=== PATIENT | male | born 1950 | race Caucasian/White ===

== ENCOUNTER → 2017-02-17 13:37 | Outpatient (CLI) | payer MEDICARE, SELFPAY ==
[2017-02-17 14:37] LABS: Microalbumin,Random Urine 16.5 mg/L (NO RANGE EST.); Microalbumin:Creatinine Ratio 58.3 mg/g CRE (<30 mg/g CRE)
== END ==
PROVIDERS: Family Provider Family Medicine; PCP Family Medicine; Visit Provider Family Medicine
DX: E11.22 Type 2 diabetes mellitus with diabetic chronic kidney disease (principal); N18.1 Chronic kidney disease, stage 1
CPT/HCPCS: 82043; 82570

== ENCOUNTER → 2017-08-24 09:54 | Outpatient (CLI) | payer MEDICARE, MEDICAID, SELFPAY ==
--- NOTE | 2017-08-25 07:48 | PFT ---
INTRODUCTION: The patient is a 66-year-old male that presents for pulmonary function testing secondary to a diagnosis of asthma. Respiratory therapy reports good patient effort. Bronchodilators were used during testing. INTERPRETATION: Forced expiration spirometry demonstrates no evidence of a large airways obstructive ventilatory defect. There was no significant response to aerosolized bronchodilators, based upon strict ATS criteria. Spirograms are of good quality and plateau gradually. Body plethysmography was performed and reveals lung volumes to be within normal limits. Diffusing capacity by single breath CO is mildly reduced at 62% of predicted. IMPRESSION: These pulmonary function studies demonstrate the presence of an isolated mild reduction in diffusing capacity, which could be related to an underlying pulmonary vascular disorder such as pulmonary hypertension. There has been significant improvement in the patient's spirometric values since 2016. However, the patient's diffusing capacity has decreased by 13%.
--- NOTE | 2017-08-25 07:51 | PFT_ITS ---
INTRODUCTION: The patient is a 66-year-old male that presents for pulmonary function testing secondary to a diagnosis of asthma. Respiratory therapy reports good patient effort. Bronchodilators were used during testing. INTERPRETATION: Forced expiration spirometry demonstrates no evidence of a large airways obstructive ventilatory defect. There was no significant response to aerosolized bronchodilators, based upon strict ATS criteria. Spirograms are of good quality and plateau gradually. Body plethysmography was performed and reveals lung volumes to be within normal limits. Diffusing capacity by single breath CO is mildly reduced at 62% of predicted. IMPRESSION: These pulmonary function studies demonstrate the presence of an isolated mild reduction in diffusing capacity, which could be related to an underlying pulmonary vascular disorder such as pulmonary hypertension. There has been significant improvement in the patient's spirometric values since 2016. However , the patient's diffusing capacity has decreased by 13%.
== END ==
PROVIDERS: Family Provider Family Medicine; PCP Family Medicine; Visit Provider Nurse Practitioner Acute Care
DX: J44.9 Chronic obstructive pulmonary disease, unspecified (principal)
CPT/HCPCS: 94060; 94726; 94729

== ENCOUNTER → 2017-09-19 13:45 | Outpatient (CLI) | payer MEDICARE, MEDICAID, SELFPAY ==
[2017-09-19 15:38] LABS: Hemoglobin A1c 5.4 % (4.2-6.3)
[2017-09-19 15:39] LABS: AST(SGOT) 21 U/L (15-37); Alanine Aminotransfer ALT/SGPT 33 U/L (16-61); Albumin, Serum 3.5 g/dL (3.2-5.0); Alkaline Phosphatase 57 U/L (45-117); Anion Gap 11 (5-15); BUN 18 mg/dL (7-18); BUN/Creat Ratio 12.2 RATIO (10-20); Calcium,Total 8.6 mg/dL (8.5-10.1); Chloride 110 mmol/L (98-107); Cholesterol 73 mg/dL (200); Creatinine, Serum 1.47 mg/dL (0.70-1.30); EST Glomerular Filtration Rate 51 mL/min (>60); Est Glom Filt Rate - Afr Amer 62 mL/min (>60); Globulin 3.5 g/dL (2.2-4.2); Glucose 141 mg/dL (74-106); High Density Lipoprotein 27 mg/dL; Potassium 3.9 mmol/L (3.5-5.1); Sodium Level 145 mmol/L (136-145); Triglycerides 89 mg/dL; Very Low Density Lipoprotein 18 mg/dL (5-40)
== END ==
PROVIDERS: Family Provider Family Medicine; PCP Family Medicine; Visit Provider Nurse Practitioner
DX: E11.9 Type 2 diabetes mellitus without complications (principal)
CPT/HCPCS: 36415; 80053; 80061; 83036

== ENCOUNTER → 2017-09-21 12:04 | Outpatient (CLI) | payer MEDICARE, MEDICAID, SELFPAY ==
[2017-09-21 12:40] VITALS: PULSE 101; PULSE 104; PULSE 75; PULSE 95; PULSE 96; PULSE 97; O2SAT 92; O2SAT 94; O2SAT 95; O2SAT 97
--- NOTE | 2017-09-21 12:48 | CPS ---
Wears CPAP at night. He rested from 300 mins to 330 into test became Short of Breath mild exp wheezing stopped as soon as he stopped walking.
--- NOTE | 2017-09-22 07:38 | PCM.PSN.6M ---
PSN 6 Minute Walk Test - 6 Minute Walk Test 6 Minute Walk Test: 6 Minute Walk Test PSN:6-Minute Walk Test Start: 09/21/17 12:40 Freq: Status: Active Protocol: [id number] Document 09/21/17 12:40 FR (Rec: 09/21/17 12:50 FR [id number]) 6 Minute Walk Test Date Performed 09/21/17 Time Performed 12:30 Height 5 ft 9 in Weight: 340 lb Weight in Pounds 340.0 lbs Assistive device used: None Pre-test Oxygen Delivery Method Room Air Pulse Ox (%) 94 Pulse Rate (60-100 beats/min) 75 Dyspnea Hernandez Scale (0-10) 0 Exertion Hernandez Scale (6-20) 8 1st minute Oxygen Delivery Method Room Air Pulse Ox (%) 94 Pulse Rate (60-100 beats/min) 104 H 2nd minute Oxygen Delivery Method Room Air Pulse Ox (%) 92 Pulse Rate (60-100 beats/min) 97 3rd minute Oxygen Delivery Method Room Air Pulse Ox (%) 94 Pulse Rate (60-100 beats/min) 95 Number of Rests Taken 1 Reported Symptoms Increased Work of Breathing 4th minute Oxygen Delivery Method Room Air Pulse Ox (%) 95 Pulse Rate (60-100 beats/min) 96 Reported Symptoms Increased Work of Breathing 5th minute Oxygen Delivery Method Room Air Pulse Ox (%) 94 Pulse Rate (60-100 beats/min) 101 H Reported Symptoms Increased Work of Breathing 6th minute Oxygen Delivery Method Room Air Pulse Ox (%) 94 Pulse Rate (60-100 beats/min) 101 H Reported Symptoms Increased Work of Breathing Post-test Oxygen Delivery Method Room Air Pulse Ox (%) 97 Pulse Rate (60-100 beats/min) 75 Dyspnea Hernandez Scale (0-10) 3 Exertion Hernandez Scale (6-20) 9 Full Laps Walked 17 Partial Lap, Number of Tiles Walked 30 Total Distance Walked (ft) 1033 09/21/17 12:48 Cardiopulmonary Services by Jumana Bauer Wears CPAP at night. He rested from 300 mins to 330 into test became Short of Breath mild exp wheezing stopped as soon as he stopped walking. Initialized on 09/21/17 12:48 - END OF NOTE - Interpretation Interpretation: The patient ambulated 1033 feet the course of 6 minutes beginning on room air without assistive devices or breaks. Pretesting oxygen saturation was noted to be 94% on room air. With ambulation, the radha oxygen saturation was 92%. There was no significant exertional oxygen desaturation. - Recommendations Recommendations: There is no indication for the use of supplemental oxygen at this time.
== END ==
PROVIDERS: Family Provider Family Medicine; PCP Family Medicine; Visit Provider Nurse Practitioner Acute Care
DX: J44.9 Chronic obstructive pulmonary disease, unspecified (principal); E11.9 Type 2 diabetes mellitus without complications
CPT/HCPCS: 82043; 82570; 94618

== ENCOUNTER → 2017-09-21 12:22 | Outpatient (CLI) | payer MEDICARE, MEDICAID, SELFPAY ==
[2017-09-21 13:06] LABS: Microalbumin,Random Urine 54.2 mg/L (NO RANGE EST.); Microalbumin:Creatinine Ratio 23.7 mg/g CRE (<30 mg/g CRE)
== END ==
PROVIDERS: Family Provider Family Medicine; PCP Family Medicine; Visit Provider Nurse Practitioner
DX: E11.9 Type 2 diabetes mellitus without complications (principal)
CPT/HCPCS: 82043; 82570

== ENCOUNTER 2017-11-18 12:31 | Emergency (ER) | payer MEDICARE, SELFPAY ==
[2017-11-18 12:32] VITALS: BP 130/66; PULSE 70; RESP 18; TEMP 36.4; O2SAT 98; BMI 48.6
--- NOTE | 2017-11-18 13:13 | CT_ITS ---
STUDY: CT ABDOMEN AND PELVIS WITHOUT CONTRAST REASON FOR EXAM: Male, 66 years old. Hematuria and abdominal pain and jaundice RADIATION DOSAGE (If Supplied By Facility): CTDIvol = ( ) mGy, DLP = ( ) mGycm TECHNIQUE: Transaxial images were obtained from the dome of the diaphragm to the symphysis pubis without oral contrast, and without intravenous contrast. Sagittal and coronal images were reconstructed. Individualized dose optimization techniques were used for this CT. COMPARISON: December 26, 2014 FINDINGS: There is minor subsegmental atelectasis in left lower lobe. The visualized portions of the heart are within normal limits. Liver is fatty infiltrated without mass or bile duct dilatation. There is a large calcified stone in gallbladder without evidence for pericholecystic edema . Spleen is enlarged and homogeneous attenuation. Pancreas is atrophic and fatty infiltrated Normal bilateral adrenal glands. No evidence for renal obstruction or ureteral calculus. No definite renal mass given limited unenhanced nature of the study. Normal visualized stomach. Normal small intestine. Diverticular disease in the sigmoid colon without evidence for acute diverticulitis. The appendix is visualized and appears normal. Atherosclerotic changes of the aorta without evidence for aneurysm. Normal inferior vena cava. Normal retroperitoneum. Reinoso catheter is noted within the bladder which is incompletely distended and thick-walled. Nonspecific enlargement of the prostate. Large fat-containing umbilical hernia. Lumbar spine demonstrates moderate spondylosis CT/Abdomen/Pelvis without Cont IMPRESSION: Nonspecific fatty infiltration of liver. Splenomegaly Cholelithiasis without evidence for acute cholecystitis Nonspecific enlargement of prostate encroaching upon the bladder which is incompletely distended and thick-walled. Electronically Signed: Murphy Rosa MD at 16:14 EDT , Service support ,
--- NOTE | 2017-11-18 13:18 | ED.DCSUM_ITS ---
History of Present Illness Chief Complaint: Complaint Informant: Patient Onset: Days - 3 Context: Sudden Onset - Spontaneous Quality: Gross hematuria, no definite clots Location: Penis Current Severity: Moderate Maximum Severity: Moderate Associated Symptoms: Periumbilical intermittent abdominal pain Narrative: Takes Eliquis for chronic A. fib and a cardiomyopathy, for which a dual-chamber pacer/defibrillator was placed. Never had any urinary issues like this before except for kidney stones that needed to be removed, but this does not feel like kidney stone pain. No specific back pain or flank pain, just periumbilical discomfort that is not present right now. Nausea, no vomiting. No fevers. No burning dysuria. Abdominal discomfort started first, followed by hematuria. No known prostate issues. He used to see Dr. German when he saw urology. - Past Medical History (1) COPD (chronic obstructive pulmonary disease) Status: Chronic (2) Cardiomyopathy, idiopathic Status: Chronic (3) Diabetes type 2, controlled Status: Chronic (4) HTN (hypertension), benign Status: Chronic (5) Hyperlipidemia Status: Chronic (6) ARMANDO (obstructive sleep apnea) Status: Chronic Comment: 25/10 cm of water, backup rate of 16 (7) Persistent atrial fibrillation Status: Chronic (8) Presence of biventricular implantable cardioverter-defibrillator (ICD) Status: Chronic Past Medical History - Allergies and Home Meds Allergies/Adverse Reactions: Allergies moxifloxacin HCl [From Avelox] Allergy (Verified 11/18/17 13:00) Hives Primary Care Physician: Adithya Weaver MD [Primary Care Provider] - Smoking Status: Never smoker Review of Systems General: Denies: Chills, Fever, Sweats Cardiovascular: Denies: Chest pain, Palpitations Respiratory: Denies: Dyspnea, Cough, Dyspnea on exertion Gastrointestinal: Reports: Abdominal pain, Nausea. Denies: Vomiting, Diarrhea, Melena, Hematochezia Genitourinary: Reports: Hematuria, Frequency. Denies: Dysuria Musculoskeletal: Reports: Back pain - Mild, chronic, unchanged. Denies: Neck pain, Extremity Pain Skin: Denies: Rash Neurological: Denies: Headache, Weakness, Numbness Physical Exam Vital Signs/Narrative: Vital Signs Temp Pulse Resp BP Pulse Ox 11/18/17 12:32 97.5 F L 70 18 130/66 H 98 Inital Vital Signs reviewed: Yes General: Well nourished, Well developed, Obese, - - NAD Head: Normocephalic, Atraumatic Eyes: Perrl, EOMI, Scleral icterus ENT: Moist mucous membranes, No rhinorrhea Neck: Supple, Nontender Cardiovascular: Regular rate, Regular rhythm, No murmurs Respiratory: No distress, CTA bilaterally, Chest nontender Abdomen: Soft, Nondistended, Normal bowel sounds, Tender - Mild epigastric only, Umbilical hernia - Nontender, non-erythematous, reducible, chronic Back: Nontender, Normal Inspection. Negative for: CVA tenderness Extremities: Nontender, No edema Skin: Normal color, No rash Neurological: Alert, Oriented x3, Cranial nerves II-XII grossly intact, Normal Strength, Normal Sensation Psychological: Normal affect Diagnostic/Tx/Re-eval Impressions Abdomen/Pelvis CT 11/18/17 13:13 IMPRESSION: Nonspecific fatty infiltration of liver. Splenomegaly Cholelithiasis without evidence for acute cholecystitis Nonspecific enlargement of prostate encroaching upon the bladder which is incompletely distended and thick-walled. Electronically Signed: Murphy Rosa MD at 16:14 EDT , Service support , 11/18/17 13:13 CT Abd [Abdomen/Pelvis without Cont] [CT] Stat Laboratory Results 11/18/17 11/18/17 11/18/17 13:35 13:35 13:41 WBC 5.3 RBC 4.54 L Hgb 12.6 L Hct 37.6 L MCV 82.8 MCH 27.8 MCHC 33.5 RDW 16.2 H RDW Differential 49.3 H Plt Count 120 L MPV 10.4 Immature Gran % (Auto) 0.000 Neut % (Auto) 70.5 H Lymph % (Auto) 13.2 L Bracken % (Auto) 14.0 H Eos % (Auto) 2.1 Baso % (Auto) 0.2 Absolute Neuts (auto) 3.7 Absolute Lymphs (auto) 0.70 L Total Counted Not Reportable Sodium 139 Potassium 3.6 Chloride 104 Carbon Dioxide 26.0 Anion Gap 9 BUN 25 H Creatinine 1.34 H Estim Creat Clear Calc 54.23 Est GFR (MDRD) Af Amer 68 Est GFR (MDRD) Non-Af 57 L BUN/Creatinine Ratio 18.7 Glucose 140 H Calcium 8.6 Total Bilirubin 9.20 H Direct Bilirubin 5.11 H AST 86 H ALT 176 H Alkaline Phosphatase 169 H Total Protein 7.0 Albumin 2.9 L Globulin 4.1 Lipase 224 Urine Color Urine Clarity Urine pH Ur Specific [place] Urine Protein Urine Glucose (UA) Urine Ketones Urine Occult Blood Urine Nitrite Urine Bilirubin Urine Urobilinogen Ur Leukocyte Esterase Urine RBC Urine WBC Ur Squamous Epith Cells Ur Transition Epith Cell Urine Bacteria Coarse Granular Casts Urine Mucus 11/18/17 15:17 WBC RBC Hgb Hct MCV MCH MCHC RDW RDW Differential Plt Count MPV Immature Gran % (Auto) Neut % (Auto) Lymph % (Auto) [place]ack[place] % (Auto) Eos % (Auto) Baso % (Auto) Absolute Neuts (auto) Absolute Lymphs (auto) Total Counted Sodium Potassium Chloride Carbon Dioxide Anion Gap BUN Creatinine Estim Creat Clear Calc Est GFR (MDRD) Af Amer Est GFR (MDRD) Non-Af BUN/Creatinine Ratio Glucose Calcium Total Bilirubin Direct Bilirubin AST ALT Alkaline Phosphatase Total Protein Albumin Globulin Lipase Urine Color [place] Urine Clarity Cloudy Urine pH 5.0 Ur Specific [place] 1.015 Urine Protein 100 H Urine Glucose (UA) Normal Urine Ketones Negative Urine Occult Blood 25 H Urine Nitrite Negative Urine Bilirubin 6 H Urine Urobilinogen 8 H Ur Leukocyte Esterase 25 H Urine RBC 0-5 SEEN Urine WBC 0-5 SEEN Ur Squamous Epith Cells 0 SEEN Ur Transition Epith Cell 0-5 SEEN Urine Bacteria 0 SEEN Coarse Granular Casts 0-5 SEEN Urine Mucus 3+ - Medical Decision Making Initially Reinoso catheter was placed, as patient brought a specimen that appeared to be grossly bloody mildly. There were no clots. There is no urinary retention, irrigating the bladder did not change anything, but his urine does not appear grossly bloody now it appears more likely to be discolored from bilirubin. It is more tea colored and orange. His labs confirm this after I added liver enzymes, showing a total bilirubin over 9 and a direct bilirubin over 5 along with slight elevated liver enzymes. He has no leukocytosis and his CT abdomen/pelvis shows a single gallstone which the patient has known about and has been a symptomatically him, with no signs of cholecystitis or pericholecystic fluid, or common bile duct dilatation, or mass. He is not significantly anemic to suggest hemolysis although that is unable to be ruled out with a high indirect bilirubin level. I discussed with hospitalist and surgery here, we are not able to admit him since we have no one available to perform ERCP should he need in the process of his workup. They recommend transfer to a facility that has the service available. He is choosing [facility], and is accepted there by Dr. Chew. ED Disposition - Plan for ED Patient: Disposition: [facility] Chief Complaint: Complaint Diagnosis: Hyperbilirubinemia, Cholelithiasis without cholecystitis Referrals: Adithya Weaver MD [Primary Care Provider] -
[2017-11-18 13:46] LABS: Absolute Neutrophil Count 3.7 X10^3/uL (2.0-7.7); Basophil# 0.01 X10^3/uL; Basophil% 0.2 % (0-1); Eosinophil# 0.11 X10^3/uL; Eosinophils% 2.1 % (0-5); Hematocrit 37.6 % (40-54); Hemoglobin 12.6 g/dl (13.0-16.5); Lymphocyte % 13.2 % (19-41); Mean Corp Hgb Conc 33.5 g/gl (32-36); Mean Corpuscular Hgb 27.8 pg (27.0-32.0); Mean Corpuscular Volume 82.8 fL (80-94); Mean Platelet Vol. 10.4 fl (6.2-12.0); Monocyte# 0.74 X10^3/uL; Neutrophil # 3.74 X10^3/uL (2.7-7.7); Neutrophil % 70.5 % (47-70); Platelet Count 120 K/mm3 (150-450); RBC Distribution Width CV 16.2 % (11.6-14.6); RBC Distribution Width SD 49.3 fl (35.1-43.9); Red Blood Count 4.54 M/mm3 (4.6-6.2); White Blood Count 5.3 K/mm3 (4.4-11.0)
[2017-11-18 13:52] LABS: POSITIVE COUNT NO; POSITIVE DIFFERENTIAL NO; POSITIVE MORPHOLOGY NO
[2017-11-18 13:59] LABS: Anion Gap 9 (5-15); BUN 25 mg/dL (7-18); BUN/Creat Ratio 18.7 RATIO (10-20); Calcium,Total 8.6 mg/dL (8.5-10.1); Chloride 104 mmol/L (98-107); Creatinine, Serum 1.34 mg/dL (0.70-1.30); EST Glomerular Filtration Rate 57 mL/min (>60); Est Glom Filt Rate - Afr Amer 68 mL/min (>60); Estimated Creatinine Clearance 54.23 ml/min; Glucose 140 mg/dL (74-106); Lipase 224 U/L (73-393); Potassium 3.6 mmol/L (3.5-5.1); Sodium Level 139 mmol/L (136-145)
[2017-11-18] MEDS: Ondansetron 4 MG/2 ML Vial IV (14:05)
[2017-11-18] MEDS: Lidocaine Jelly 2% 20 ML Syringe (URO-JET) 5 APPLIC TOPICAL (14:05)
[2017-11-18 14:24] VITALS: BP 134/72; PULSE 91; RESP 16; O2SAT 98
[2017-11-18 15:24] LABS: AST(SGOT) 86 U/L (15-37); Alanine Aminotransfer ALT/SGPT 176 U/L (16-61); Albumin, Serum 2.9 g/dL (3.2-5.0); Alkaline Phosphatase 169 U/L (45-117); Bilirubin, Direct 5.11 mg/dL (0.00-0.30); Globulin 4.1 g/dL (2.2-4.2)
[2017-11-18 15:26] LABS: Bacteria 0 SEEN /hpf (None Seen); Squamous Epithelial Cells - UA 0 SEEN /hpf (0-5)
[2017-11-18 15:41] LABS: Color, Urine Amber (Yellow); Glucose, Dipstick Normal (Normal); Ketone-Dipstick Negative (Negative); Leukocyte Esterase-Dipstick 25 /ul (Negative); Nitrite-Dipstick Negative (Negative); Occult Blood-Urine 25 /ul (Negative); Protein-Dipstick 100 mg/dl (Negative); Specific Gravity, Urine 1.015 (1.002-1.030); Urine Clarity Cloudy (Clear); Urine Urobilinogen 8 mg/dl (Normal)
[2017-11-18 15:44] LABS: Urine Bilirubin Dipstick 6 mg/dL (Negative)
[2017-11-18 16:15] LABS: Mucous, Urine 3+ /hpf (<or=2+)
[2017-11-18 16:17] LABS: Red Blood Cells-Urine 0-5 SEEN /hpf (0-5); Transitional Epithelial - Ur 0-5 SEEN /hpf (0-5); White Blood Cells 0-5 SEEN /hpf (0-5)
[2017-11-18 16:19] LABS: Coarse Granular Cast 0-5 SEEN /lpf (0-5 /lpf)
[2017-11-18 16:30] VITALS: BP 131/102; PULSE 70; RESP 18; O2SAT 96
--- NOTE | 2017-11-18 17:27 | NURSING ---
[facility] [id number] REPORT [id number]
[2017-11-18 18:45] VITALS: BP 116/77; PULSE 68; RESP 17; O2SAT 93
== END 2017-11-18 18:24 | disposition short-term general hospital (02) ==
PROVIDERS: Emergency Provider Emergency Medicine; Family Provider Family Medicine; PCP Family Medicine
DX: K80.20 Calculus of gallbladder without cholecystitis without obstruction (principal); R31.0 Gross hematuria; E80.6 Other disorders of bilirubin metabolism; I48.2 Chronic atrial fibrillation; I48.1 Persistent atrial fibrillation; E11.9 Type 2 diabetes mellitus without complications; I10 Essential (primary) hypertension; E78.5 Hyperlipidemia, unspecified; G47.33 Obstructive sleep apnea (adult) (pediatric); M54.9 Dorsalgia, unspecified; G89.29 Other chronic pain; E66.9 Obesity, unspecified; Z79.01 Long term (current) use of anticoagulants; Z79.02 Long term (current) use of antithrombotics/antiplatelets; Z79.82 Long term (current) use of aspirin; Z79.4 Long term (current) use of insulin; Z79.899 Other long term (current) drug therapy; Z87.442 Personal history of urinary calculi; Z95.810 Presence of automatic (implantable) cardiac defibrillator
CPT/HCPCS: 51702; 74176; 80048; 80076; 81001; 83690; 85025; 96374; 99285; A4216; J2405

== ENCOUNTER → 2017-12-07 15:38 | Outpatient (CLI) | payer MEDICARE, SELFPAY | PROVIDERS: Family Provider Family Medicine; PCP Family Medicine; Visit Provider Internal Medicine Critical Care Medicine | DX: G47.33 Obstructive sleep apnea (adult) (pediatric) (principal) | CPT/HCPCS: 98960; G0463 ==

== ENCOUNTER 2017-12-11 08:48 | Day surgery (SDC) | payer MEDICARE, SELFPAY ==
[2017-12-11] VITALS (7 sets, daily range): BP systolic 122–138; BP diastolic 73–88; PULSE 52–69; RESP 16; TEMP 36.6–37.1; O2SAT 94–98; BMI 47.2
[2017-12-11 09:36] LABS: Bedside Glucose 124 mg/dL (70-110)
--- NOTE | 2017-12-11 10:15 | RAD_ITS ---
STUDY: X-RAY - LUMBAR SPINE REASON FOR EXAM: Male, 66 years old. Facet joint block. TECHNIQUE: 4 cone-down view(s) of the lumbar spine were obtained. COMPARISON: None FINDINGS: Intraoperative imaging provided for right L3 S1 facet joint block. RAD/L/S Spine Min 4 Views IMPRESSION: Intraoperative imaging provided for right L3 S1 facet joint block. Electronically Signed: Chandler Ruffin MD at 14:18 EST Tel [phone], Service support ,
[2017-12-11] MEDS: Bupivacaine 0.5% PF 10 ML VIAL (10:24)
[2017-12-11] MEDS: MethylPREDNISolone Acetate 80 MG/ML Vial (10:25)
--- NOTE | 2017-12-11 10:42 | OP.PCM_ITS ---
Problem List (1) Degeneration of intervertebral disc of lumbosacral region Status: Chronic (2) Spondylosis of lumbosacral region without myelopathy or radiculopathy Status: Chronic Report of Operation Date of Procedure: 12/11/17 Pre-Operative Diagnosis: Lumbosacral spondylosis, lumbosacral degenerative disc disease, lumbar facet arthropathy Post-Operative Diagnosis: Lumbosacral spondylosis, lumbosacral degenerative disc disease, lumbar facet arthropathy Surgery/Procedure Performed:: Right-sided lumbar facet steroid injection L3, L4, L5, S1 Description of Surgical Findings:: PROCEDURE: Right-sided lumbar facet steroid injection L3, L4, L5, S1 PREOPERATIVE DIAGNOSIS: Lumbosacral spondylosis, lumbosacral degenerative disc disease, lumbar facet arthropathy POSTOPERATIVE DIAGNOSIS: Lumbosacral spondylosis, lumbosacral degenerative disc disease, lumbar facet arthropathy ANESTHESIA: MAC COMPLICATIONS: None BLOOD LOSS: Minimal PROCEDURE IN DETAIL: History and physical today was reviewed. Risks and benefits of the procedure were explained. The patient understood, agreed to our procedure, and informed consent was obtained. IV inserted per routine protocol. The patient was taken to the operating room, placed in a prone position with a pillow positioned underneath the abdomen. The right side of his lower back was prepped and draped in a sterile fashion using iodine x3. Under fluoroscopy guidance, on AP view, L3 through S1 vertebral bodies were visualized. Skin and subcutaneous tissues were anesthetized with approximately 5 mL of 1% lidocaine using a 25-gauge regular needle. Under direct visualization with fluoroscopy at approximately 25-degree angle, starting on the right L3, ending on the right S1, passing through the L4-L5 using a 22-gauge 5-inch spinal needle, the needle was advanced via the skin. The tip of the needle was maneuvered and directed towards the superior and medial gutter of the transverse process at the vicinity of the medial branch. Once the tip of the needle was in contact with the bone, the needle pulled approximately 2 mm off the bone. After negative aspiration of blood with CSF and confirmation of AP as well as oblique view, a total of 8 mL of preservative-free 0.25% Marcaine with 80 mg of Depo- Medrol was injection in divided doses between those 4 levels. The needles were then removed intact. The patient experienced no signs or symptoms intrathecal, intravascular injection. The patient experienced no paraesthesia. The procedure was completed without any apparent difficult, any complication. The patient appeared to tolerate well. ASSESSMENT AND PLAN: This is a 66-year-old Male with Lumbosacral spondylosis, lumbosacral degenerative disc disease, lumbar facet arthropathy, status post right-sided lumbar facet steroid injection L3 through S1. The patient will continue his current medications. The patient will follow in approximately 2 weeks for possible repeat of the procedure if indicated.
== END 2017-12-11 11:33 | disposition home or self-care (01) ==
LOC: SDC 08:49 → AC 08:50
PROVIDERS: Family Provider Family Medicine; PCP Family Medicine; Referring Provider Anesthesiology Pain Medicine; Visit Provider Anesthesiology Pain Medicine
PROC: 3E0T3BZ Introduction of Anesthetic Agent into Peripheral Nerves and Plexi, Percutaneous Approach (ICD-10-PCS; principal; 2017-12-11 10:30)
DX: M47.817 Spondylosis without myelopathy or radiculopathy, lumbosacral region (principal); M51.37 Other intervertebral disc degeneration, lumbosacral region; E11.9 Type 2 diabetes mellitus without complications; I10 Essential (primary) hypertension; E78.00 Pure hypercholesterolemia, unspecified; J45.909 Unspecified asthma, uncomplicated; G47.30 Sleep apnea, unspecified; K21.9 Gastro-esophageal reflux disease without esophagitis; Z79.01 Long term (current) use of anticoagulants; Z79.82 Long term (current) use of aspirin; Z79.4 Long term (current) use of insulin; Z79.899 Other long term (current) drug therapy; Z95.810 Presence of automatic (implantable) cardiac defibrillator
CPT/HCPCS: 01992; 64493; 64494; 64495; 64483; 72110; 82962; J7120; J3490

== ENCOUNTER → 2018-03-01 14:45 | Outpatient (CLI) | payer MEDICARE, SELFPAY ==
[2018-03-01 13:46] VITALS: BMI 48.9
--- NOTE | 2018-03-01 14:49 | RAD_ITS ---
STUDY: X-RAY - THORACIC SPINE REASON FOR EXAM: Male, 67 years old. Lower back pain TECHNIQUE: 3 view(s) of the thoracic spine were obtained. COMPARISON: None. FINDINGS: There is no evidence of fracture or dislocation in the thoracic spine. The vertebral body heights are well-maintained. There are moderate degenerative changes in the lower thoracic spine. RAD/Thoracic Spine 3 Views IMPRESSION: No fracture or dislocation in the thoracic spine. Moderate degenerative changes in the lower thoracic spine. Electronically Signed: Sekou Martin, at 15:24 EST Tel , Service support ,
== END ==
PROVIDERS: Family Provider Family Medicine; PCP Family Medicine; Referring Provider Nurse Practitioner Family; Visit Provider Nurse Practitioner Family
DX: M54.6 Pain in thoracic spine (principal)
CPT/HCPCS: 72072

== ENCOUNTER → 2018-03-23 10:35 | Outpatient (CLI) | payer MEDICARE, SELFPAY ==
[2018-03-15 13:20] VITALS: BMI 48.9
[2018-03-23 12:28] LABS: Absolute Lymphocyte Count 1.02 X10^3/ul (0.83-4.51); Basophil# 0.02 X10^3/uL; Basophil% 0.3 % (0-1); Eosinophil# 0.22 X10^3/uL; Eosinophils% 3.7 % (0-5); Hematocrit 39.2 % (40-54); Hemoglobin 12.5 g/dl (13.0-16.5); Lymphocyte # 1.02 X10^3/ul (4.0); Lymphocyte % 17.3 % (19-41); Mean Corp Hgb Conc 31.9 g/gl (32-36); Mean Corpuscular Hgb 27.6 pg (27.0-32.0); Mean Corpuscular Volume 86.5 fL (80-94); Mean Platelet Vol. 10.2 fl (6.2-12.0); Monocyte# 0.66 X10^3/uL; Monocyte% 11.2 % (0-10); Neutrophil # 3.95 X10^3/uL (2.7-7.7); Neutrophil % 67.2 % (47-70); Platelet Count 141 K/mm3 (150-450); RBC Distribution Width CV 15.6 % (11.6-14.6); RBC Distribution Width SD 49.3 fl (35.1-43.9); Red Blood Count 4.53 M/mm3 (4.6-6.2); White Blood Count 5.9 K/mm3 (4.4-11.0)
[2018-03-23 12:36] LABS: POSITIVE COUNT NO; POSITIVE DIFFERENTIAL NO; POSITIVE MORPHOLOGY NO
[2018-03-23 12:49] LABS: Microalbumin,Random Urine 9.6 mg/L (NO RANGE EST.); Microalbumin:Creatinine Ratio 5.7 mg/g CRE (<30 mg/g CRE)
[2018-03-23 13:09] LABS: AST(SGOT) 17 U/L (15-37); Alanine Aminotransfer ALT/SGPT 27 U/L (16-61); Albumin, Serum 3.3 g/dL (3.2-5.0); Alkaline Phosphatase 56 U/L (45-117); Anion Gap 9 (5-15); BUN 19 mg/dL (7-18); BUN/Creat Ratio 15.3 RATIO (10-20); Calcium,Total 8.3 mg/dL (8.5-10.1); Chloride 107 mmol/L (98-107); Cholesterol 91 mg/dL (200); Creatinine, Serum 1.24 mg/dL (0.70-1.30); EST Glomerular Filtration Rate 62 mL/min (>60); Est Glom Filt Rate - Afr Amer 75 mL/min (>60); Globulin 3.2 g/dL (2.2-4.2); Glucose 202 mg/dL (74-106); High Density Lipoprotein 23 mg/dL; Potassium 3.9 mmol/L (3.5-5.1); Protein, Total 6.5 g/dL (6.4-8.2); Sodium Level 142 mmol/L (136-145); Triglycerides 142 mg/dL; Very Low Density Lipoprotein 28 mg/dL (5-40)
== END ==
PROVIDERS: Family Provider Family Medicine; PCP Family Medicine; Visit Provider Family Medicine
DX: E11.22 Type 2 diabetes mellitus with diabetic chronic kidney disease (principal); N18.9 Chronic kidney disease, unspecified
CPT/HCPCS: 36415; 80053; 80061; 82043; 82570; 85025

== ENCOUNTER 2018-03-26 08:34 | Day surgery (SDC) | payer MEDICARE, SELFPAY ==
[2018-03-15 13:20] VITALS: BMI 48.9
[2018-03-26 09:19] VITALS: BP 148/84; PULSE 64; RESP 18; TEMP 36.5; O2SAT 97; BMI 49.5
[2018-03-26 09:46] LABS: Bedside Glucose 114 mg/dL (70-110)
[2018-03-26] MEDS: Bupivacaine 0.25% 30 ML Vial (10:08)
[2018-03-26] MEDS: MethylPREDNISolone Acetate 80 MG/ML Vial (10:08)
[2018-03-26 10:20] VITALS: BP 121/87; BP 148/84; PULSE 57; RESP 16; TEMP 36.3; O2SAT 95
[2018-03-26 10:25] VITALS: BP 118/72; BP 148/84; PULSE 62; RESP 16; O2SAT 96
[2018-03-26 10:30] VITALS: BP 125/79; BP 148/84; PULSE 61; RESP 16; O2SAT 98
--- NOTE | 2018-03-26 10:30 | RAD_ITS ---
PROCEDURE: Right T8-T11 facet joint block. DATE OF EXAMINATION: March 26, 2018. INDICATION: Male, 67 years old. Chronic pain. FLUOROSCOPY TIME (if supplied): (0:23) minutes/seconds. Four coned down intraoperative views were obtained. Intraoperative imaging provided for right T8-T11 facet joint block. RAD/Thoracic Spine Min 4 Views IMPRESSION: Intraoperative imaging provided for right T8-T11 facet joint block. Electronically Signed: Chandler Ruffin MD at 12:13 EST , Service support ,
--- NOTE | 2018-03-26 10:35 | PCM.OPRPT ---
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 Report of Operation Date of Procedure: 03/26/18 Pre-Operative Diagnosis: Thoracic spondylosis, thoracic degenerative disc disease, thoracic facet arthropathy Post-Operative Diagnosis: Thoracic spondylosis, thoracic degenerative disc disease, thoracic facet arthropathy Surgery/Procedure Performed:: Right-sided thoracic facet steroid injection T8, T9, T10, T11 Description of Surgical Findings:: PROCEDURE: Right-sided thoracic facet steroid injection T8, T9, T10, T11 PREOPERATIVE DIAGNOSIS: Thoracic spondylosis, thoracic degenerative disc disease, thoracic facet arthropathy POSTOPERATIVE DIAGNOSIS: Thoracic spondylosis, thoracic degenerative disc disease, thoracic facet arthropathy ANESTHESIA: MAC COMPLICATIONS: None BLOOD LOSS: Minimal PROCEDURE IN DETAIL: History and physical today was reviewed. Risks and benefits of the procedure were explained. The patient understood, agreed to our procedure, and informed consent was obtained. IV inserted per routine protocol. The patient was taken to the operating room, placed in a prone position with a pillow positioned underneath the abdomen. The right side of his lower back was prepped and draped in a sterile fashion using iodine x3. Under fluoroscopy guidance, on AP view, L3 through S1 vertebral bodies were visualized. Skin and subcutaneous tissues were anesthetized with approximately 5 mL of 1% lidocaine using a 25-gauge regular needle. Under direct visualization with fluoroscopy at approximately 25-degree angle, starting on the right L3, ending on the right S1, passing through the L4-L5 using a 22-gauge 3 1/2-inch spinal needle, the needle was advanced via the skin. The tip of the needle was maneuvered and directed towards the superior and medial gutter of the transverse process at the vicinity of the medial branch. Once the tip of the needle was in contact with the bone, the needle pulled approximately 2 mm off the bone. After negative aspiration of blood with CSF and confirmation of AP as well as oblique view, a total of 8 mL of preservative-free 0.25% Marcaine with 80 mg of Depo-Medrol was injection in divided doses between those 4 levels. The needles were then removed intact. The patient experienced no signs or symptoms intrathecal, intravascular injection. The patient experienced no paraesthesia. The procedure was completed without any apparent difficult, any complication. The patient appeared to tolerate well. ASSESSMENT AND PLAN: This is a 67-year-old Male with Thoracic spondylosis, thoracic degenerative disc disease, thoracic facet arthropathy, status post right-sided T8 through T11. The patient will continue his current medications. The patient will follow in approximately 2 weeks for reevaluation
[2018-03-26 10:36] VITALS: BP 112/69; BP 148/84; PULSE 62; RESP 16; TEMP 36.2; O2SAT 95
--- NOTE | 2018-03-26 10:42 | OP.PCM_ITS ---
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 Report of Operation Date of Procedure: 03/26/18 Pre-Operative Diagnosis: Thoracic spondylosis, thoracic degenerative disc disease, thoracic facet arthropathy Post-Operative Diagnosis: Thoracic spondylosis, thoracic degenerative disc disease, thoracic facet arthropathy Surgery/Procedure Performed:: Right-sided thoracic facet steroid injection T8, T9, T10, T11 Description of Surgical Findings:: PROCEDURE: Right-sided thoracic facet steroid injection T8, T9, T10, T11 PREOPERATIVE DIAGNOSIS: Thoracic spondylosis, thoracic degenerative disc disease, thoracic facet arthr opathy POSTOPERATIVE DIAGNOSIS: Thoracic spondylosis, thoracic degenerative disc disease, thoracic facet arthropathy ANESTHESIA: MAC COMPLICATIONS: None BLOOD LOSS: Minimal PROCEDURE IN DETAIL: History and physical today was reviewed. Risks and benefits of the procedure were explained. The patient understood, agreed to our procedure, and informed consent was obtained. IV inserted per routine protocol. The patient was taken to the operating room, placed in a prone position with a pillow positioned underneath the abdomen. The right side of his lower back was prepped and draped in a sterile fashion using iodine x3. Under fluoroscopy guidance, on AP view, L3 through S1 vertebral bodies were visualized. Skin and subcutaneous tissues were anesthetized with approximately 5 mL of 1% lidocai ne using a 25-gauge regular needle. Under direct visualization with fluoroscopy at approximately 25-degree angle, starting on the right L3, ending on the right S1, passing through the L4-L5 using a 22-gauge 3 1/2-inch spinal needle, the needle was advanced via the skin. The tip of the needle was maneuvered and directed towards the superior and medial gutter of the transverse process at the vicinity of the medial branch. Once the tip of the needle was in contact with the bone, the needle pulled approximately 2 mm off the bone. After negative aspiration of blood with CSF and confirmation of AP as well as oblique view, a total of 8 mL of preservative-free 0.25% Marcaine with 80 mg of Depo- Medrol was injection in divided doses between those 4 levels. The needles were then removed intact. The patient experienced no signs or symptoms intrathecal, intravascular injection. The patient experienced no paraesthesia. The procedure was completed without any apparent difficult, any complication. The patient appeared to tolerate well. ASSESSMENT AND PLAN: This is a 67-year-old Male with Thoracic spondylosis, thoracic degenerative disc disease, thoracic facet arthropathy, status post right-sided T8 through T11. The patient will continue his current medications. The patient will follow in approximately 2 weeks for reevaluation
[2018-03-26 10:55] VITALS: BP 148/84
== END 2018-03-26 10:56 | disposition home or self-care (01) ==
LOC: SDC 08:35 → AC 08:37
PROVIDERS: Family Provider Family Medicine; PCP Family Medicine; Referring Provider Anesthesiology Pain Medicine; Visit Provider Anesthesiology Pain Medicine
PROC: 3E0R3BZ Introduction of Anesthetic Agent into Spinal Canal, Percutaneous Approach (ICD-10-PCS; CPT 62281; principal; 2018-03-26 10:25)
DX: M51.34 Other intervertebral disc degeneration, thoracic region (principal); M47.814 Spondylosis without myelopathy or radiculopathy, thoracic region; M51.37 Other intervertebral disc degeneration, lumbosacral region; M47.817 Spondylosis without myelopathy or radiculopathy, lumbosacral region; M79.10 Myalgia, unspecified site; E11.9 Type 2 diabetes mellitus without complications; I10 Essential (primary) hypertension; E78.00 Pure hypercholesterolemia, unspecified; J45.909 Unspecified asthma, uncomplicated; K21.9 Gastro-esophageal reflux disease without esophagitis; Z79.891 Long term (current) use of opiate analgesic; Z79.01 Long term (current) use of anticoagulants; Z79.82 Long term (current) use of aspirin; Z79.4 Long term (current) use of insulin; Z79.899 Other long term (current) drug therapy; Z87.442 Personal history of urinary calculi; Z95.810 Presence of automatic (implantable) cardiac defibrillator; Z96.622 Presence of left artificial elbow joint; Z96.621 Presence of right artificial elbow joint
CPT/HCPCS: 01992; 64490; 64491; 64492; 72074; 82962; J7120

== ENCOUNTER 2018-04-23 08:02 | Day surgery (SDC) | payer MEDICARE, SELFPAY ==
[2018-04-23 08:21] VITALS: BP 141/89; PULSE 75; RESP 16; TEMP 36.8; O2SAT 97; BMI 49.4
[2018-04-23 08:41] LABS: Bedside Glucose 113 mg/dL (70-110)
--- NOTE | 2018-04-23 09:00 | RAD_ITS ---
FLUOROSCOPIC GUIDED THORACIC SPINE PAIN BLOCK INJECTION: BLOCK, THORACIC FACET T8-T 11 LEFT REASON FOR EXAM: Male, 67 years old. Lower back pain FLUOROSCOPY TIME (if supplied): 1.6 seconds TECHNIQUE: Intraoperative fluoroscopy. For intraoperative views. COMPARISON: None. FINDINGS: Degenerative changes are noted in the thoracic and lumbar spine RAD/Thoracic Spine 3 Views IMPRESSION: Successful thoracic spine fluoroscopic guided injection. Electronically Signed: Presley Cárdenas, at 13:32 EDT Tel , Service support ,
[2018-04-23] MEDS: MethylPREDNISolone Acetate 80 MG/ML Vial (09:33)
[2018-04-23] MEDS: Bupivacaine 0.25% 30 ML Vial (09:33)
[2018-04-23 09:37] VITALS: BP 113/62; BP 141/89; PULSE 62; RESP 16; TEMP 36.3; O2SAT 96
[2018-04-23 09:42] VITALS: BP 141/89; BP 99/64; PULSE 67; RESP 16; O2SAT 95
[2018-04-23 09:47] VITALS: BP 141/89; BP 92/49; PULSE 71; RESP 16; O2SAT 95
[2018-04-23 09:52] VITALS: BP 119/69; BP 141/89; PULSE 72; RESP 16; TEMP 36.3; O2SAT 96
[2018-04-23 10:01] VITALS: BP 141/89
--- NOTE | 2018-04-23 11:01 | OP.PCM_ITS ---
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 Report of Operation Date of Procedure: 04/23/18 Pre-Operative Diagnosis: Thoracic spondylosis, thoracic degenerative disc disease, thoracic facet arthropathy Post-Operative Diagnosis: Thoracic spondylosis, thoracic degenerative disc disease, thoracic facet arthropathy Surgery/Procedure Performed:: Left-sided thoracic facet steroid injection T8, T9, T10, T11 Description of Surgical Findings:: PROCEDURE: Left-sided thoracic facet steroid injection T8, T9, T10, T11 PREOPERATIVE DIAGNOSIS: Thoracic spondylosis, thoracic degenerative disc disease, thoracic facet arthrop athy POSTOPERATIVE DIAGNOSIS: Thoracic spondylosis, thoracic degenerative disc disease, thoracic facet arthropathy ANESTHESIA: MAC COMPLICATIONS: None BLOOD LOSS: Minimal PROCEDURE IN DETAIL: History and physical today was reviewed. Risks and benefits of the procedure were explained. The patient understood, agreed to our procedure, and informed consent was obtained. IV inserted per routine protocol. The patient was taken to the operating room, placed in a prone position with a pillow positioned underneath the abdomen. The left side of his lower back was prepped and draped in a sterile fashion using iodine x3. Under fluoroscopy guidance, on AP view, T8 through T11 vertebral bodies were visualized. Skin and subcutaneous tissues were anesthetized with approximately 5 mL of 1% lidocaine using a 25-gauge regular needle. Under direct visualization with fluoroscopy at approximately 15-degree angle, starting on the left T8, ending on the left T11, passing through the T9 and T10 using a 22-gauge 3 1/2-inch spinal needle, the needle was advanced via the skin. The tip of the needle was maneuvered and directed towards the epiphyseal junction of each corresponding vertebra once the tip of the needle was at the vicinity of the medial branch. Once the tip of the needle was in contact with the bone, the needle pulled approximately 2 mm off the bone. After negative aspiration of blood with CSF and confirmation of AP as well as oblique view, a total of 6 mL of preservative-free 0.25% Marcaine with 80 mg of Depo- Medrol was injection in divided doses between those 4 levels. The needles were then removed intact. The patient experienced no signs or symptoms intrathecal, intravascular injection. The patient experienced no paraesthesia. The procedure was completed without any apparent difficult, any complication. The patient appeared to tolerate well. ASSESSMENT AND PLAN: This is a 67-year-old Male with Thoracic spondylosis, thoracic degenerative disc disease, thoracic facet arthropathy, status post left-sided T8 through T11. The patient will continue his current medications. The patient will follow in approximately 2 weeks for reevaluation
== END 2018-04-23 10:06 | disposition home or self-care (01) ==
LOC: SDC 08:02 → AC 08:03
PROVIDERS: Family Provider Family Medicine; PCP Family Medicine; Referring Provider Anesthesiology Pain Medicine; Visit Provider Anesthesiology Pain Medicine
PROC: 3E0R3BZ Introduction of Anesthetic Agent into Spinal Canal, Percutaneous Approach (ICD-10-PCS; CPT 62281; principal; 2018-04-23 08:55)
DX: M51.34 Other intervertebral disc degeneration, thoracic region (principal); M47.814 Spondylosis without myelopathy or radiculopathy, thoracic region; M51.17 Intervertebral disc disorders with radiculopathy, lumbosacral region; M47.817 Spondylosis without myelopathy or radiculopathy, lumbosacral region; M16.9 Osteoarthritis of hip, unspecified; M70.60 Trochanteric bursitis, unspecified hip; M79.10 Myalgia, unspecified site; I48.91 Unspecified atrial fibrillation; E11.9 Type 2 diabetes mellitus without complications; I10 Essential (primary) hypertension; J44.9 Chronic obstructive pulmonary disease, unspecified; E78.00 Pure hypercholesterolemia, unspecified; G47.30 Sleep apnea, unspecified; K21.9 Gastro-esophageal reflux disease without esophagitis; Z79.891 Long term (current) use of opiate analgesic; Z79.01 Long term (current) use of anticoagulants; Z79.82 Long term (current) use of aspirin; Z79.899 Other long term (current) drug therapy; Z87.19 Personal history of other diseases of the digestive system; Z95.810 Presence of automatic (implantable) cardiac defibrillator
CPT/HCPCS: 01992; 64491; 64492; 64490; 72072; 82962; J7120

== ENCOUNTER 2018-07-09 07:43 | Day surgery (SDC) | payer MEDICARE, SELFPAY ==
--- NOTE | 2018-07-09 08:30 | RAD_ITS ---
STUDY: X-RAY - THORACIC SPINE REASON FOR EXAM: Male, 67 years old. Steroid injection. TECHNIQUE: 5 coned-down intraoperative view(s) of the thoracic spine were obtained. COMPARISON: None. FINDINGS: Intraoperative imaging provided for left T8-T11 steroid injection. RAD/Thoracic Spine Min 4 Views IMPRESSION: Intraoperative imaging provided for the left T8-T11 steroid injection. Electronically Signed: Chandler Ruffin, at 14:15 EDT , Service support ,
--- NOTE | 2018-07-09 08:30 | RAD_ITS ---
STUDY: X-RAY - THORACIC SPINE REASON FOR EXAM: Male, 67 years old. Steroid injection. TECHNIQUE: For cone-down intraoperative view(s) of the thoracic spine were obtained. COMPARISON: None. FINDINGS: Intraoperative imaging provided for right T8 through T11 steroid injection. RAD/Thoracic Spine Min 4 Views IMPRESSION: Fluoroscopic imaging provided for right T8-T11 steroid injection. Electronically Signed: Chandler Ruffin, at 15:01 EDT , Service support ,
[2018-07-09 08:53] VITALS: BP 126/67; PULSE 67; RESP 16; TEMP 37.4; O2SAT 96; BMI 50.5
[2018-07-09] MEDS: Bupivacaine 0.25% 30 ML Vial (10:05)
[2018-07-09] MEDS: MethylPREDNISolone Acetate 80 MG/ML Vial (10:06)
[2018-07-09 10:15] LABS: Bedside Glucose 154 mg/dL (70-110)
[2018-07-09 10:20] VITALS: BP 102/52; BP 126/67; PULSE 60; RESP 18; TEMP 36.7
[2018-07-09 10:25] VITALS: BP 122/73; BP 126/67; PULSE 66; RESP 18; O2SAT 96
[2018-07-09 10:30] VITALS: BP 126/67; BP 138/72; PULSE 66; RESP 18; O2SAT 99
[2018-07-09 10:35] VITALS: BP 124/64; BP 126/67; PULSE 66; RESP 18; TEMP 36.4; O2SAT 96
[2018-07-09 10:47] VITALS: BP 126/67
--- NOTE | 2018-07-09 14:41 | OP.PCM_ITS ---
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 Report of Operation Date of Procedure: 07/09/18 Pre-Operative Diagnosis: Thoracic spondylosis, thoracic degenerative disc disease, thoracic facet arthropathy Post-Operative Diagnosis: Thoracic spondylosis, thoracic degenerative disc disease, thoracic facet arthropathy Surgery/Procedure Performed:: Bilateral thoracic facet steroid injection T8, T9, T10, T11 Description of Surgical Findings:: PROCEDURE: Bilateral thoracic facet steroid injection T8, T9, T10, T11 PREOPERATIVE DIAGNOSIS: Thoracic spondylosis, thoracic degenerative disc disease, thoracic facet arthropathy POSTOPERATIVE DIAGNOSIS: Thoracic spondylosis, thoracic degenerative disc disease, thoracic facet arthropathy ANESTHESIA: MAC COMPLICATIONS: None BLOOD LOSS: Minimal PROCEDURE IN DETAIL: History and physical today was reviewed. Risks and benefits of the procedure were explained. The patient understood, agreed to our procedure, and informed consent was obtained. IV inserted per routine protocol. The patient was taken to the operating room, placed in a prone position with a pillow positioned underneath the abdomen. The left side of his lower back was prepped and draped in a sterile fashion using iodine x3. Under fluoroscopy guidance, on AP view, T8 through T11 vertebral bodies were visualized. Skin and subcutaneous tissues were anesthetized with approximately 5 mL of 1% lidocaine using a 25-gauge regular needle. Under direct visualization with fluoroscopy at approximately 15-degree angle, starting on the left T8, ending on the left T11 and repeated again on the right side, passing through the T9 and T10 using a 22-gauge 3 1/2-inch spinal needle, the needle was advanced via the skin. The tip of the needle was maneuvered and directed towards the epiphyseal junction of each corresponding vertebra once the tip of the needle was at the vicinity of the medial branch. Once the tip of the needle was in contact with the bone, the needle pulled approximately 2 mm off the bone. After negative aspiration of blood with CSF and confirmation of AP as well as oblique view, a total of 12 mL of preservative-free 0.25% Marcaine with 80 mg of Depo- Medrol was injection in divided doses between those 8 levels. The needles were then removed intact. The patient experienced no signs or symptoms intrathecal, intravascular injection. The patient experienced no paraesthesia. The procedure was completed without any apparent difficult, any complication. The patient appeared to tolerate well. ASSESSMENT AND PLAN: This is a 67-year-old Male with Thoracic spondylosis, thoracic degenerative disc disease, thoracic facet arthropathy, status post bilateral T8 through T11. The patient will continue his current medications. The patient will follow in approximately 2 weeks for reevaluation.
== END 2018-07-09 10:56 | disposition home or self-care (01) ==
LOC: SDC 08:13 → AC 08:24
PROVIDERS: Family Provider Family Medicine; PCP Family Medicine; Referring Provider Anesthesiology Pain Medicine; Visit Provider Anesthesiology Pain Medicine
PROC: 3E0R3BZ Introduction of Anesthetic Agent into Spinal Canal, Percutaneous Approach (ICD-10-PCS; CPT 62281; principal; 2018-07-09 09:25)
DX: M47.814 Spondylosis without myelopathy or radiculopathy, thoracic region (principal); M51.34 Other intervertebral disc degeneration, thoracic region; M47.27 Other spondylosis with radiculopathy, lumbosacral region; M51.37 Other intervertebral disc degeneration, lumbosacral region; M70.60 Trochanteric bursitis, unspecified hip; E11.9 Type 2 diabetes mellitus without complications; I10 Essential (primary) hypertension; E78.00 Pure hypercholesterolemia, unspecified; J45.909 Unspecified asthma, uncomplicated; K21.9 Gastro-esophageal reflux disease without esophagitis; Z79.891 Long term (current) use of opiate analgesic; Z79.01 Long term (current) use of anticoagulants; Z79.82 Long term (current) use of aspirin; Z79.4 Long term (current) use of insulin; Z79.899 Other long term (current) drug therapy; Z87.442 Personal history of urinary calculi; Z87.19 Personal history of other diseases of the digestive system; Z95.810 Presence of automatic (implantable) cardiac defibrillator
CPT/HCPCS: 64491; 64492; 64490; 72074; 76000; 82962; J7120

== ENCOUNTER 2018-09-10 08:18 | Day surgery (SDC) | payer MEDICARE, SELFPAY ==
[2018-08-16 09:36] VITALS: BMI 49.4
[2018-09-10 08:45] VITALS: BP 141/86; PULSE 70; RESP 28; TEMP 36.7; O2SAT 95; BMI 50.0
[2018-09-10 08:56] LABS: Bedside Glucose 119 mg/dL (70-110)
[2018-09-10] MEDS: Bupivacaine 0.25% 30 ML Vial (09:29)
[2018-09-10] MEDS: MethylPREDNISolone Acetate 80 MG/ML Vial (09:29)
--- NOTE | 2018-09-10 09:30 | RAD_ITS ---
STUDY: X-RAY - LUMBAR SPINE REASON FOR EXAM: Male, 67 years old. Facet blocks TECHNIQUE: For intraoperative view(s) of the lumbar spine were obtained. COMPARISON: None FINDINGS: Intraoperative images demonstrating needle localizing the L3-4 through L5-S1 right facets. RAD/Lumbar Spine 2 or 3 Views IMPRESSION: Localizer images from a facet block of the lumbar spine. Electronically Signed: Gerardo Wilson DO at 22:03 EDT Tel [phone], Service support ,
[2018-09-10 09:37] VITALS: BP 115/86; BP 141/86; PULSE 70; RESP 24; TEMP 36.8; O2SAT 93
[2018-09-10 09:45] VITALS: BP 120/83; BP 141/86; PULSE 70; RESP 20; O2SAT 94
[2018-09-10 09:50] VITALS: BP 125/87; BP 141/86; PULSE 70; RESP 20; O2SAT 93
[2018-09-10 09:55] VITALS: BP 140/87; BP 141/86; PULSE 70; RESP 18; TEMP 36.8; O2SAT 93
[2018-09-10 10:10] VITALS: BP 141/86
--- NOTE | 2018-09-10 17:03 | OP.PCM_ITS ---
Problem List (1) Degeneration of intervertebral disc of lumbosacral region Status: Chronic (2) Spondylosis of lumbosacral region without myelopathy or radiculopathy Status: Chronic Report of Operation Date of Procedure: 09/10/18 Pre-Operative Diagnosis: Lumbosacral spondylosis, lumbar sacral degenerative disc disease, lumbar facet arthropathy Post-Operative Diagnosis: Lumbosacral spondylosis, lumbosacral degenerative disc disease, lumbar facet arthropathy Surgery/Procedure Performed:: Right-sided lumbar facet steroid injection L3, L4, L5, S1 Description of Surgical Findings:: PROCEDURE: Right-sided lumbar facet steroid injection L3, L4, L5, S1 PREOPERATIVE DIAGNOSIS: Lumbosacral spondylosis, lumbosacral degenerative disc disease, and lumbar facet arthropathy POSTOPERATIVE DIAGNOSIS: Lumbosacral spondylosis, lumbosacral degenerative disc disease, and lumbar facet arthropathy ANESTHESIA: MAC COMPLICATIONS: None BLOOD LOSS: Minimal PROCEDURE IN DETAIL: History and physical today was reviewed. Risks and benefits of the procedure were explained. The patient understood, agreed to our procedure, and informed consent was obtained. IV inserted per routine protocol. The patient was taken to the operating room, placed in a prone position with a pillow positioned underneath the abdomen. The right side of his lower back was prepped and draped in a sterile fashion using iodine x3. Under fluoroscopy guidance, on AP view, L3 through S1 vertebral bodies were visualized. Skin and subcutaneous tissues were anesthetized with approximately 5 mL of 1% lidocaine using a 25-gauge regular needle. Under direct visualization with fluoroscopy at approximately 25-degree angle, starting on the right L3, ending on the right S1, passing thro ugh the L4-L5 using a 22-gauge 5-inch spinal needle, the needle was advanced via the skin. The tip of the needle was maneuvered and directed towards the superior and medial gutter of the transverse process at the vicinity of the medial branch. Once the tip of the needle was in contact with the bone, the needle pulled approximately 2 mm off the bone. After negative aspiration of blood with CSF and confirmation of AP as well as oblique view, a total of 8 mL of preservative-free 0.25% Marcaine with 80 mg of Depo- Medrol was injection in divided doses between those 4 levels. The needles were then removed intact. The patient experienced no signs or symptoms intrathecal, intravascular injection. The patient experienced no paraesthesia. The procedure was completed without any apparent difficult, any complication. The patient appeared to tolerate well. ASSESSMENT AND PLAN: This is a 67-year-old male with lumbosacral spondylosis, lumbosacral degenerative disc disease, and lumbar facet arthropathy, status post right-sided lumbar facet steroid injection L3 through S1. The patient will continue his current medications. The patient will follow in approximately 2 weeks for reevaluation.
== END 2018-09-10 10:16 | disposition home or self-care (01) ==
LOC: SDC 08:19 → AC 08:20
PROVIDERS: Family Provider Family Medicine; PCP Family Medicine; Referring Provider Anesthesiology Pain Medicine; Visit Provider Anesthesiology Pain Medicine
PROC: 3E0T3BZ Introduction of Anesthetic Agent into Peripheral Nerves and Plexi, Percutaneous Approach (ICD-10-PCS; CPT 64493; principal; 2018-09-10 09:25)
DX: M51.37 Other intervertebral disc degeneration, lumbosacral region (principal); M51.36 Other intervertebral disc degeneration, lumbar region; M47.817 Spondylosis without myelopathy or radiculopathy, lumbosacral region; M46.96 Unspecified inflammatory spondylopathy, lumbar region; M70.60 Trochanteric bursitis, unspecified hip; M16.9 Osteoarthritis of hip, unspecified; E11.9 Type 2 diabetes mellitus without complications; I10 Essential (primary) hypertension; J45.909 Unspecified asthma, uncomplicated; E78.00 Pure hypercholesterolemia, unspecified; K21.9 Gastro-esophageal reflux disease without esophagitis; Z79.891 Long term (current) use of opiate analgesic; Z79.82 Long term (current) use of aspirin; Z79.4 Long term (current) use of insulin; Z79.899 Other long term (current) drug therapy; Z95.810 Presence of automatic (implantable) cardiac defibrillator
CPT/HCPCS: 64493; 64494; 64495; 64483; 72100; 82962; J7120

== ENCOUNTER 2018-10-04 00:59 | Emergency (ER) | payer MEDICARE, SELFPAY ==
[2018-10-04 01:00] VITALS: BP 155/90; PULSE 69; RESP 35; TEMP 36.8; O2SAT 94; BMI 49.3
--- NOTE | 2018-10-04 01:10 | EKG12_ITS ---
Test Reason : SOB Blood Pressure : / mmHG Vent. Rate : 070 BPM Atrial Rate : 078 BPM P-R Int : 000 ms QRS Dur : 130 ms QT Int : 464 ms P-R-T Axes : 000 228 014 degrees QTc Int : 501 ms Ventricular-paced rhythm Abnormal ECG Confirmed by KRYSTAL GOMEZ, KENNY ([id number]), deputy editor in chief ENRIQUE PAUL ([id number]) on 10/09/2018 10:24:53 AM Referred By: DC Confirmed By:MERLY RICE MD
--- NOTE | 2018-10-04 01:10 | RAD_ITS ---
STUDY: X-RAY CHEST REASON FOR EXAM: Male, 67 years old. Dyspnea TECHNIQUE: Single AP portable view of the chest. COMPARISON: June 03, 2017 FINDINGS: Pacemaker is seen on the left side. Subsegmental atelectases in the left lung base. There is no demonstrated pleural abnormality. Normal size heart. Normal mediastinum and fernando. Normal visualized pulmonary arteries. Normal visualized aortic arch and descending thoracic aorta. Normal visualized thoracic spine. There is degenerative osteoarthritis of the bilateral shoulders. There is no demonstrated abnormality of the visualized soft tissue structures of the upper abdomen. RAD/Chest 1 View (Portable) IMPRESSION: Degenerative changes, as described above. No demonstrated acute cardiopulmonary process. Electronically Signed: Presley Cárdenas, at 2:58 EDT Tel , Service support ,
[2018-10-04 01:25] VITALS: BP 158/90; PULSE 70; RESP 23; O2SAT 96
[2018-10-04 01:26] VITALS: PULSE 70; RESP 18
[2018-10-04 01:30] LABS: Absolute Neutrophil Count 9.2 X10^3/uL (2.0-7.7); Basophil# 0.07 X10^3/uL; Basophil% 0.6 % (0-1); Eosinophil# 0.25 X10^3/uL; Hematocrit 43.7 % (40-54); Hemoglobin 14.3 g/dL (13.0-16.5); Lymphocyte % 14.4 % (19-41); Mean Corp Hgb Conc 32.7 g/dL (32-36); Mean Corpuscular Volume 85.7 fL (80-94); Mean Platelet Vol. 9.7 fl (6.2-12.0); Monocyte# 1.08 X10^3/uL; Monocyte% 8.7 % (0-10); NRBC Flagged by Analyzer 0 % (0-5); Neutrophil # 9.21 X10^3/uL (2.7-7.7); Neutrophil % 73.9 % (47-70); Platelet Count 166 K/mm3 (150-450); RBC Distribution Width CV 15.5 % (11.6-14.6); RBC Distribution Width SD 48.4 fl (35.1-43.9); White Blood Count 12.5 K/mm3 (4.4-11.0)
[2018-10-04] MEDS: Ipratropium/Albuterol Sulfate 3 ML AMPUL.NEB INHALATION (01:30)
[2018-10-04 01:39] LABS: Anion Gap 4 (5-15); BUN 23 mg/dL (7-18); Calcium,Total 8.9 mg/dL (8.5-10.1); Chloride 111 mmol/L (98-107); Creatinine, Serum 1.28 mg/dL (0.70-1.30); EST Glomerular Filtration Rate 59 mL/min (>60); Est Glom Filt Rate - Afr Amer 72 mL/min (>60); Glucose 125 mg/dL (74-106); Potassium 4.1 mmol/L (3.5-5.1); Sodium Level 142 mmol/L (136-145)
[2018-10-04 02:09] VITALS: BP 132/87; PULSE 70; RESP 21; O2SAT 95
--- NOTE | 2018-10-04 03:18 | ED.DCSUM_ITS ---
- ER Visit Summary Date of Service: 10/04/18 Chief Complaint: Shortness of breath History of Present Illness: The patient is a 67 M with shortness of breath that started earlier in the evening. It came on gradually. He felt like he was breathing heavy. Associated with cough and phlegm. Denies chest pain or fevers. He has a history of asthma and COPD. He is not on home oxygen. He also has a history of heart disease, diabetes, hypertension, hyperlipidemia, atrial fibrillation. He has a biventricular defibrillator which was recently interrogated. He is compliant with Eliquis. Physical Examination: Afebrile and vital signs unremarkable. 94% on nasal cannula. 92% on room air. Speaking full sentences. Lungs are diminished throughout. Heart is regular. Trace lower extremity edema, nontender. Skin appears normal. Test Results: EKG shows a ventricular paced rhythm at a rate of 70. Patient has a leukocytosis but otherwise his labs are unremarkable. Chest x-ray reviewed by the radiologist and me shows chronic changes only. Emergency Department Course and Treatment: Symptoms sound infectious. He has a history of asthma and COPD. He presents with breathing heavy, cough, and sputum. His white count is elevated, but he has no other signs of sepsis. No pneumonia on x-ray. He was treated with a DuoNeb while awaiting results. On reevaluation, he is feeling much better. We will treat with a course of doxycycline and albuterol. Follow-up with primary care for recheck. Return for worsening symptoms, chest pain, or any other new issues. Treatment Plan: Discharge Disposition: Discharge Impression: 1. Acute bronchitis This note was generated with [employer] software. It may contain incorrect words, spelling, and punctuation that were not noted in review of the chart prior to signing ED Disposition - Plan for ED Patient: Referrals: Adithya Weaver MD [Primary Care Provider] -
--- NOTE | 2018-10-04 03:22 | ED.DEP ---
ED Disposition - Plan for ED Patient: Instructions: BRONCHITIS, Antiobiotic Treatment (Adult) Prescriptions: Doxycycline 100 mg PO BID #20 cap Prescription Printed Albuterol Inhaler [Ventolin Hfa] 1 - 2 puff INHALATION Q4H PRN PRN #1 inhaler PRN Reason: Wheezing Prescription Printed Referrals: Adithya Weaver MD [Primary Care Provider] -
[2018-10-04] MEDS: Doxycycline 100 MG CAPSULE PO (03:33)
[2018-10-04 03:35] VITALS: BP 139/87; PULSE 70; RESP 19; O2SAT 96
== END 2018-10-04 03:36 | disposition home or self-care (01) ==
LOC: ED 01:57
PROVIDERS: Emergency Provider Emergency Medicine; Family Provider Family Medicine; PCP Family Medicine
DX: J44.0 Chronic obstructive pulmonary disease with (acute) lower respiratory infection (principal); J20.9 Acute bronchitis, unspecified; I25.10 Atherosclerotic heart disease of native coronary artery without angina pectoris; I48.91 Unspecified atrial fibrillation; E11.9 Type 2 diabetes mellitus without complications; I10 Essential (primary) hypertension; E78.5 Hyperlipidemia, unspecified; G47.33 Obstructive sleep apnea (adult) (pediatric); Z79.82 Long term (current) use of aspirin; Z79.4 Long term (current) use of insulin; Z79.899 Other long term (current) drug therapy; Z95.810 Presence of automatic (implantable) cardiac defibrillator
CPT/HCPCS: 71045; 80048; 84484; 85025; 93005; 94640; 99283; A4216

== ENCOUNTER 2018-11-12 07:34 | Day surgery (SDC) | payer MEDICARE, SELFPAY ==
[2018-10-12 10:09] VITALS: BMI 48.2
[2018-10-30 09:56] VITALS: BMI 58.8
[2018-11-12 08:02] VITALS: BP 133/74; PULSE 70; RESP 16; TEMP 36.7; O2SAT 99; BMI 48.9
[2018-11-12 08:10] LABS: Bedside Glucose 130 mg/dL (70-110)
[2018-11-12] MEDS: Lactated Ringers 1,000 ML 100 ML IV (08:27)
--- NOTE | 2018-11-12 09:20 | RAD_ITS ---
STUDY: X-RAY - LUMBAR SPINE REASON FOR EXAM: Male, 67 years old. Facet injection TECHNIQUE: 10 view(s) of the lumbar spine were obtained. COMPARISON: 09/10/2018 FINDINGS: Fluoroscopy of the lumbar spine was utilized and operating room and 10 minute images are submitted for interpretation. RAD/L/S Spine Min 4 Views IMPRESSION: Fluoroscopy during surgery. Electronically Signed: Earnest Beard MD at 11:03 EDT Tel , Service support ,
[2018-11-12] MEDS: Bupivacaine 0.25% 30 ML Vial (09:24)
[2018-11-12] MEDS: MethylPREDNISolone Acetate 80 MG/ML Vial (09:24)
[2018-11-12 09:43] VITALS: BP 133/74; BP 137/82; PULSE 70; RESP 20; TEMP 36.4; O2SAT 96
[2018-11-12 09:50] VITALS: BP 133/74; BP 143/88; PULSE 70; RESP 22; O2SAT 97
[2018-11-12 09:55] VITALS: BP 118/72; BP 133/74; PULSE 70; RESP 20; O2SAT 96
[2018-11-12 09:59] VITALS: BP 133/74; BP 148/89; PULSE 70; RESP 20; TEMP 36.7; O2SAT 97
[2018-11-12 10:25] VITALS: BP 133/74
--- NOTE | 2018-11-12 11:57 | PCM.OPRPT ---
Report of Operation Date of Procedure: 11/12/18 Description of Surgical Findings:: PROCEDURE: Left-sided lumbar radiofrequency ablation of the medial branch L3, L4, L5, S1 PREOPERATIVE DIAGNOSES: Lumbosacral spondylosis, lumbosacral degenerative disc disease, lumbar facet arthropathy POSTOPERATIVE DIAGNOSES: Lumbosacral spondylosis, lumbosacral degenerative disc disease, lumbar facet arthropathy ANESTHESIA: MAC COMPLICATIONS: None BLOOD LOSS: Minimal PROCEDURE IN DETAIL: History and physical today was reviewed. Risks and benefits of procedure explained. The patient understood, agreed to the procedure and informed consent was obtained. IV inserted per routine protocol. The patient was taken to the operating room, placed in the prone position with a pillow positioned underneath the abdomen. The left side of the lower back was prepped and draped in a sterile fashion using iodine x 3. Under fluoroscopy guidance, on an oblique view, the L3 through S1 vertebral bodies were visualized. The skin and subcutaneous tissue was anesthetized with approximately 10 mL of 1% lidocaine using a 25-gauge regular needle. Under direct visualization with fluoroscopy at approximately 25-degree angle, starting on the left L3, ending on the left S1 passing through the L4-L5 using a 20-gauge 15 cm with a 10 mm curved active tip radiofrequency ablation needle the needle passed through the skin. The tip of the needle was maneuvered and directed towards the superior and medial gutter of the transverse process at the vicinity of the medial branch. Once the tip of the needle was in contact with the bone, the needle pulled approximately 2 mm up the bone. The stylet of each needle was then removed. After negative aspiration of blood with CSF and confirmation of AP as well as oblique view, radiofrequency ablation probe was then inserted at each level. Impedance was then recorded at L3 to be 257, at L4 236, at L5 213, at S1 256 ohm. Motor-evoked potential was then initiated to 1.5 volt without any motor response at each corresponding level. The probe was then removed intact and a total of 6 mL preservative-free 1% lidocaine was injected in divided doses between those 4 levels after negative aspiration of blood with CSF. The radiofrequency ablation probe was then reinserted after confirmation of AP, oblique as well as lateral view. Radiofrequency ablation was then initiated to 80 degrees Celsius for 90 seconds at each level. Once concluded, the probe was then removed intact and a total of 6 mL of preservative-free 0.25% Marcaine with 40 mg Depo-Medrol was injected in divided doses between those 4 levels. The needles were then removed intact. The patient experienced no signs or symptoms of intrathecal, intravascular injection. The patient experienced no paraesthesia. The procedure was completed without any apparent difficulty, any complication. The patient appeared to tolerate well. Sensory as well as motor exam was unchanged from prior to procedure. ASSESSMENT AND PLAN: This is a 67-year-old male with lumbosacral spondylosis, lumbosacral degenerative disc disease, lumbar facet arthropathy, status post left-sided radiofrequency ablation of the medial branch L3 through S1. The patient will continue his current medications. The patient will follow up in approximately 2 weeks for reevaluation.
== END 2018-11-12 10:25 | disposition home or self-care (01) ==
LOC: SDC 07:34 → AC 07:36
PROVIDERS: Family Provider Family Medicine; PCP Family Medicine; Referring Provider Anesthesiology Pain Medicine; Visit Provider Anesthesiology Pain Medicine
PROC: (CPT 64635; principal; 2018-11-12 09:15)
DX: M51.17 Intervertebral disc disorders with radiculopathy, lumbosacral region (principal); M47.27 Other spondylosis with radiculopathy, lumbosacral region; M47.814 Spondylosis without myelopathy or radiculopathy, thoracic region; M46.96 Unspecified inflammatory spondylopathy, lumbar region; E11.9 Type 2 diabetes mellitus without complications; I10 Essential (primary) hypertension; E78.00 Pure hypercholesterolemia, unspecified; J45.909 Unspecified asthma, uncomplicated; M70.60 Trochanteric bursitis, unspecified hip; M16.9 Osteoarthritis of hip, unspecified; M79.10 Myalgia, unspecified site; G47.30 Sleep apnea, unspecified; K21.9 Gastro-esophageal reflux disease without esophagitis; Z95.810 Presence of automatic (implantable) cardiac defibrillator; Z79.01 Long term (current) use of anticoagulants; Z79.891 Long term (current) use of opiate analgesic; Z79.82 Long term (current) use of aspirin; Z79.4 Long term (current) use of insulin; Z79.899 Other long term (current) drug therapy
CPT/HCPCS: 64635; 64636 ×2; 72110; 76000; 82962; J7120

== ENCOUNTER 2018-11-18 20:53 | Emergency (ER) | payer MEDICARE, SELFPAY ==
[2018-11-18 20:53] VITALS: BP 160/98; PULSE 72; RESP 16; TEMP 36.7; O2SAT 93; BMI 48.4
--- NOTE | 2018-11-18 21:50 | RAD_ITS ---
STUDY: X-RAY - RIGHT ANKLE REASON FOR EXAM: Male, 67 years old. Pain after fall TECHNIQUE: 3 view(s) of the ankle. COMPARISON: 2013 FINDINGS: Normal visualized distal tibia and fibula. Normal medial and lateral malleoli. Normal tibiotalar articulation and ankle mortise. Normal visualized talus and calcaneus. The visualized subtalar, talonavicular, calcaneocuboid and tarsal articulations are normal. The soft tissue structures are unremarkable. RAD/Ankle min 3 Views IMPRESSION: No acute findings Electronically Signed: Bruce Galeas MD at 22:36 EDT , Service support ,
--- NOTE | 2018-11-18 21:50 | RAD_ITS ---
STUDY: X-RAY - RIGHT TIBIA AND FIBULA REASON FOR EXAM: Male, 67 years old. Pain TECHNIQUE: 3 view(s) of the tibia and fibula were obtained. COMPARISON: None. FINDINGS: Normal visualized tibia. Normal visualized fibula. The soft tissue structures are unremarkable. RAD/Tibia & Fibula 2 Views IMPRESSION: Normal x-ray examination of the tibia and fibula. Electronically Signed: Bruce Galeas MD at 22:37 EDT , Service support ,
[2018-11-18 21:51] LABS: Absolute Lymphocyte Count 1.93 X10^3/uL (0.83-4.51); Absolute Neutrophil Count 7.6 X10^3/uL (2.0-7.7); Basophil# 0.08 X10^3/uL; Basophil% 0.7 % (0-1); Eosinophils% 2.7 % (0-5); Hematocrit 44.5 % (40-54); Hemoglobin 14.5 g/dL (13.0-16.5); Lymphocyte # 1.93 X10^3/ul (4.0); Lymphocyte % 17.5 % (19-41); Mean Corp Hgb Conc 32.6 g/dL (32-36); Mean Corpuscular Hgb 28.3 pg (27.0-32.0); Mean Corpuscular Volume 86.7 fL (80-94); Mean Platelet Vol. 9.4 fl (6.2-12.0); Monocyte# 1.06 X10^3/uL; Monocyte% 9.6 % (0-10); NRBC Flagged by Analyzer 0 % (0-5); Neutrophil # 7.59 X10^3/uL (2.7-7.7); Neutrophil % 68.8 % (47-70); Platelet Count 162 K/mm3 (150-450); RBC Distribution Width CV 16.3 % (11.6-14.6); RBC Distribution Width SD 50.4 fl (35.1-43.9); Red Blood Count 5.13 M/mm3 (4.6-6.2)
[2018-11-18 22:04] LABS: International Normalized Ratio 1.2; Prothrombin Time (Protime)PT. 14.8 SECONDS (11.7-14.9)
--- NOTE | 2018-11-18 22:04 | ED.VISSUMM ---
- ER Visit Summary Date of Service: 11/18/18 Chief Complaint: Right lower leg bruising and swelling History of Present Illness: The patient is a 67 M who presents with bruising and swelling to his right lower leg and ankle. Patient states this is been getting worse over the past 3 days. Patient states he fell 3 days ago. Patient denies any snapping or popping sensation when he fell. Patient has been able to ambulate but states his pain is worse with ambulation. Currently, patient denies any pain. Patient denies any head injury or loss of consciousness when he fell. Patient is on Eliquis for a heart condition. Physical Examination: Vital signs are stable. Patient is afebrile. Patient is in no acute distress. Musculoskeletal exam reveals mild tenderness over the lateral aspect of the right distal leg and ankle. There is no bony crepitance or step-off. There is edema and ecchymosis over the anterior lateral aspect of the right distal leg and ankle. There is no obvious deformity noted. Range of motion was limited secondary to pain. Pedal pulses are equal bilaterally. Sensation was intact to light touch in all digits. There is no calf tenderness noted. There is no tenderness over the proximal fibula. Test Results: X-rays of the right ankle and tib-fib were obtained. There are no acute fractures noted. These were interpreted by the radiologist and reviewed by myself. CBC, PT with INR, and PTT were also obtained. INR is 1.2, PTT is 31.5. The remaining labs are within normal limits. Emergency Department Course and Treatment: Patient was instructed to ice and elevate the right lower leg. Patient was instructed to continue his medications as previously prescribed. Patient was instructed to follow-up with his primary care physician in 5 to 7 days. Patient was instructed to return if worse in any way. Patient understood and was agreeable with the plan. All questions were answered. Disposition: Discharge home Impression: Right leg contusion This note was generated with [employer] dictation software. It may contain incorrect words, spelling, and punctuation that were not noted in review of the chart prior to signing ED Disposition - Plan for ED Patient: Disposition: Home or Assisted Living Diagnosis: Contusion of right lower leg, initial encounter Instructions: CONTUSION, Lower Extremity Referrals: Adithya Wevaer MD [Primary Care Provider] - 5-7 Days
[2018-11-18 22:05] LABS: Partial Thromboplast Time 31.5 Seconds (24.1-36.2)
== END 2018-11-18 22:51 | disposition home or self-care (01) ==
PROVIDERS: Emergency Provider Emergency Medicine; Family Provider Family Medicine; PCP Family Medicine
DX: S80.11XA Contusion of right lower leg, initial encounter (principal); W19.XXXA Unspecified fall, initial encounter; Y93.9 Activity, unspecified; Y92.9 Unspecified place or not applicable; Y99.9 Unspecified external cause status; Z79.01 Long term (current) use of anticoagulants; Z79.4 Long term (current) use of insulin; Z79.899 Other long term (current) drug therapy
CPT/HCPCS: 73590; 73610; 85025; 85610; 85730; 99283; A4216

== ENCOUNTER 2018-11-22 16:22 | Observation (INO) | payer MEDICARE, SELFPAY ==
[2018-11-22] VITALS (11 sets, daily range): BP systolic 127–183; BP diastolic 72–99; PULSE 77–121; RESP 16–23; TEMP 36.5–37; O2SAT 93–98; BMI 49.4; BMI 49.5; BMI 48.3
--- NOTE | 2018-11-22 16:37 | CT_ITS ---
STUDY: CT BRAIN WITHOUT CONTRAST REASON FOR EXAM: Male, 67 years old. Weakness RADIATION DOSAGE (If Supplied By Facility): DLP = ( 812.98 ) mGycm TECHNIQUE: Transaxial CT imaging of the brain was performed without administration of intravenous contrast material. Individualized dose optimization techniques were used for this CT. COMPARISON: None. FINDINGS: There is no acute bleed or infarct. There are normal white matter tracts. The ventricles are normal in configuration. There is no hydrocephalus. The visualized paranasal sinuses are clear. The mastoid air cells are well aerated. There is no skull fracture. CT/Brain/Head without Contrast IMPRESSION: No acute intracranial abnormality. Electronically Signed: Murphy Oglesby, at 17:30 EDT Tel , Service support ,
--- NOTE | 2018-11-22 16:40 | ED.VISSUMM ---
- ER Visit Summary Date of Service: 11/22/18 Chief Complaint: Right leg weakness and pain History of Present Illness: The patient is a 67 M who presents with pain and weakness in his right leg that began today. Patient states he had difficulty walking after getting out of the tub today. Patient states it is due to the pain. Patient describes the pain as aching. Patient admits to some tingling in his toes. Patient states his pain is worse with walking. Patient states nothing helps with the pain. Patient was recently started on doxycycline for right leg infection. Patient was also seen here recently due to pain and swelling in his right leg but did not have weakness at that time. Patient had x-rays and labs done at that time which were normal. Physical Examination: Vital signs are stable. Patient is afebrile. Patient is in no acute distress. Cranial nerves II through XII are intact. There are no sensory deficits noted. Strength is 4/5 in the right lower extremity and 5/5 in the left lower extremity and bilateral upper extremities. Pedal pulses are equal bilaterally. Heart was regular rate and rhythm. Lungs are clear and equal bilaterally. Abdomen is soft. Bowel sounds are normal. There is no tenderness. Test Results: CBC shows a mild leukocytosis of 12.6. INR is 1.5. EKG showed sinus rhythm with a rate of 86 with a left bundle branch block. This was unchanged compared to previous EKG dated 10/04/2018. CT scan of the brain was obtained. There is no acute intracranial abnormality. Comprehensive metabolic profile is pending. Emergency Department Course and Treatment: Patient was given a dose of morphine here. Patient states his pain is unchanged. Patient does not feel like he will be able to ambulate at home. Case was discussed with the hospitalist. She will be in to evaluate the patient and admit the patient to the hospital. Patient and family understood and were agreeable with the plan. All questions were answered. Disposition: Admit to hospital Impression: 1. Inability to ambulate 2. Right leg pain This note was generated with [employer] dictation software. It may contain incorrect words, spelling, and punctuation that were not noted in review of the chart prior to signing ED Disposition - Plan for ED Patient: Disposition: Acute Care Hospital [facility] Diagnosis: Right leg pain, Inability to ambulate due to right ankle or foot Referrals: Adithya Weaver MD [Primary Care Provider] -
--- NOTE | 2018-11-22 16:43 | EKG12_ITS ---
Test Reason : LOWER EXTREMITY PAIN Blood Pressure : / mmHG Vent. Rate : 086 BPM Atrial Rate : 086 BPM P-R Int : 176 ms QRS Dur : 148 ms QT Int : 432 ms P-R-T Axes : 000 042 151 degrees QTc Int : 516 ms Sinus rhythm with Premature supraventricular complexes Left bundle branch block Abnormal ECG Confirmed by EVERARDO GOMEZ, FELIPE ([id number]), production editor GLENNA MCFARLANE ([id number]) on 11/26/2018 10:23:48 AM Referred By: Tonya Álvarez Confirmed By:FELIPE MCGEE MD
[2018-11-22] MEDS: Morphine 4 MG/ML Syringe IV (16:56)
[2018-11-22 17:19] LABS: Absolute Lymphocyte Count 1.22 X10^3/uL (0.83-4.51); Absolute Neutrophil Count 9.4 X10^3/uL (2.0-7.7); Basophil# 0.06 X10^3/uL; Basophil% 0.5 % (0-1); Eosinophil# 0.15 X10^3/uL; Eosinophils% 1.2 % (0-5); Hemoglobin 14.3 g/dL (13.0-16.5); Lymphocyte # 1.22 X10^3/ul (4.0); Lymphocyte % 9.7 % (19-41); Mean Corp Hgb Conc 32.5 g/dL (32-36); Mean Corpuscular Hgb 28.2 pg (27.0-32.0); Mean Corpuscular Volume 86.8 fL (80-94); Mean Platelet Vol. 9.8 fl (6.2-12.0); Monocyte# 1.77 X10^3/uL; NRBC Flagged by Analyzer 0 % (0-5); Neutrophil # 9.37 X10^3/uL (2.7-7.7); POSITIVE DIFFERENTIAL YES; Platelet Count 168 K/mm3 (150-450); RBC Distribution Width CV 16.5 % (11.6-14.6); Red Blood Count 5.07 M/mm3 (4.6-6.2); White Blood Count 12.6 K/mm3 (4.4-11.0)
[2018-11-22 17:28] LABS: Differential Indicated SCAN CRITERIA MET
[2018-11-22 17:29] LABS: International Normalized Ratio 1.5; Prothrombin Time (Protime)PT. 17.5 SECONDS (11.7-14.9)
[2018-11-22 17:30] LABS: Partial Thromboplast Time 38.8 Seconds (24.1-36.2)
[2018-11-22 17:45] LABS: ALB/GLOB Ratio 0.9 RATIO (0.9-2.4); AST(SGOT) 13 U/L (15-37); Alanine Aminotransfer ALT/SGPT 26 U/L (16-61); Albumin, Serum 3.6 g/dL (3.2-5.0); Alkaline Phosphatase 65 U/L (45-117); Anion Gap 7 (5-15); BUN 23 mg/dL (7-18); BUN/Creat Ratio 15.4 RATIO (10-20); Calcium,Total 8.8 mg/dL (8.5-10.1); Chloride 104 mmol/L (98-107); Creatinine, Serum 1.49 mg/dL (0.70-1.30); EST Glomerular Filtration Rate 50 mL/min (>60); Est Glom Filt Rate - Afr Amer 60 mL/min (>60); Estimated Creatinine Clearance 46.54 ml/min; Glucose 148 mg/dL (74-106); Potassium 3.8 mmol/L (3.5-5.1); Protein, Total 7.6 g/dL (6.4-8.2); Sodium Level 139 mmol/L (136-145)
--- NOTE | 2018-11-22 17:57 | RAD_ITS ---
STUDY: X-RAY - RIGHT FOOT CLINICAL: Male, 67 years old. Fall TECHNIQUE: 3 view(s) of the foot. COMPARISON: None. FINDINGS: There is no evidence of fracture or dislocation. There are no significant degenerative changes. There are no radiodense foreign bodies. Soft tissue swelling is present. RAD/Foot min 3 Views IMPRESSION: No fracture or dislocation. Soft tissue swelling. Electronically Signed: Murphy Oglesby, at 18:44 EDT Tel , Service support ,
[2018-11-22] MEDS: Ondansetron 4 MG/2 ML Vial IV (18:01)
--- NOTE | 2018-11-22 18:04 | HP.PCM_ITS ---
<True Guadalupe - Last Filed: 11/22/18 18:04> Problem List (1) Cellulitis Status: Acute (2) Hematoma Status: Acute (3) DDD (degenerative disc disease) Status: Chronic (4) Hyperlipidemia Status: Chronic (5) Stage 2 moderate COPD by GOLD classification Status: Chronic (6) Asthma Status: Chronic (7) ARMANDO (obstructive sleep apnea) Status: Chronic Comment: 22/12 cm of water, backup rate of 16 (8) Diabetes type 2, controlled Status: Chronic (9) COPD (chronic obstructive pulmonary disease) Status: Chronic (10) Cardiomyopathy, idiopathic Status: Chronic (11) HTN (hypertension), benign Status: Chronic (12) Persistent atrial fibrillation Status: Chronic History of Present Illness Date of Admission: 11/22/18 Chief Complaint: RLE pain The patient is a 67 year old M with pmhx of idiopathic CM, chronic Afib, pacemaker/AICD in place, HTN, HLD, DMt2, ARMANDO, COPD, who presents to the ER with increased RLE pain. The patient began to experience this last Monday. It occurred after he fell, tripping over a trash bag at home. He came to the ER on Monday as the pain was worse and had xrays of the ankle and tib/fib which were negative. On Monday the pain became worse to the point that he could not walk. He saw Dr. Weaver yesterday and was placed on abx. Today he was soaking his foot, and when he went to get up he could not walk because the pain was so bad. He had to crawl to his bedroom. Currently in the ER he continues to have RLE pain, and is nauseous without vomiting. His BP is markedly elevated 180/110's. He denies fever/chills. He is on O2 in the ER which he is not at home, however he is not SOB or coughing. He has no CP, dizziness or LH. He has an extensive bruise over his right fernandez, no open wounds or drainage. [] Past Medical History Past Medical History (Chronic Problems): Chronic Problems (Last Reviewed 11/19/18 @ 14:10 by Camila Jaime) Degeneration of intervertebral disc of lumbosacral region (Chronic) Spondylosis of lumbosacral region without myelopathy or radiculopathy (Chronic) Degeneration of intervertebral disc of thoracic region (Chronic) Spondylosis of thoracic region without myelopathy or radiculopathy (Chronic) DDD (degenerative disc disease) (Chronic) DDD (degenerative disc disease), lumbar (Chronic) Hyperlipidemia (Chronic) Atherosclerosis of coronary artery of [place] heart without angina pectoris (Chronic) Stage 2 moderate COPD by GOLD classification (Chronic) Asthma (Chronic) ARMANDO (obstructive sleep apnea) (Chronic) 22/12 cm of water, backup rate of 16 Diabetes type 2, controlled (Chronic) COPD (chronic obstructive pulmonary disease) (Chronic) Cardiomyopathy, idiopathic (Chronic) Presence of biventricular implantable cardioverter-defibrillator (ICD) (Chronic) HTN (hypertension), benign (Chronic) Persistent atrial fibrillation (Chronic) Medical History: Medical History (Last Reviewed 11/19/18 @ 14:10 by Camila Jaime) Hyperlipidemia (Chronic) E78.5 Atherosclerosis of coronary artery of [place] heart without angina pectoris (Chronic) I25.10 Stage 2 moderate COPD by GOLD classification (Chronic) J44.9 Asthma (Chronic) J45.909 ARMANDO (obstructive sleep apnea) (Chronic) G47.33 22/12 cm of water, backup rate of 16 Diabetes type 2, controlled (Chronic) E11.9 COPD (chronic obstructive pulmonary disease) (Chronic) J44.9 Cardiomyopathy, idiopathic (Chronic) I42.8 HTN (hypertension), benign (Chronic) I10 Persistent atrial fibrillation (Chronic) I48.1 Cholelithiases K80.20 History of nephrolithiasis Z87.442 Multiple renal calculi N20.0 Osteoarthritis M19.90 Vitamin D deficiency E55.9 Gallstones (Resolved) K80.20 Back problem (Inactive) M53.9 Dyslipidemia (Inactive) E78.5 High triglycerides (Inactive) E78.1 Allergies moxifloxacin HCl [From Avelox] Allergy (Verified 11/22/18 16:23) Hives Home Medications: Ambulatory Orders Medication Instructions Recorded Sitagliptin Phos/Metformin HCl 1 ea PO DAILY 06/05/14 [Janumet 50-500 mg Tablet] Montelukast [Singulair] 10 mg PO DAILY 05/15/15 buPROPion XL [Wellbutrin Xl] 150 mg PO BID 05/15/15 Multivitamins,Ther W-Minerals 1 tab PO DAILY 06/04/15 [Multivitamin With Minerals] atorvastatin 20 mg tablet 20 mg PO QDAY 01/26/17 aspirin 81 mg tablet,delayed 81 mg PO QDAY 03/06/17 release tamsulosin 0.4 mg capsule 0.4 mg PO QDAY 05/29/17 amlodipine 5 mg tablet 5 mg PO QDAY 09/14/17 celecoxib 200 mg capsule 200 mg PO DAILY 09/14/17 tramadol 50 mg tablet 50 mg PO BID tab 03/01/18 Albuterol Inhaler [Ventolin Hfa] 1 - 2 puff INHALATION Q4H PRN PRN 10/04/18 #1 inhaler Insulin Detemir [Levemir FlexPen] 21 units SQ BID 10/04/18 apixaban 5 mg tablet 5 mg PO ONCE tab 10/12/18 carvedilol 6.25 mg tablet 12.5 mg PO BID tab 10/12/18 famotidine 20 mg tablet 20 mg PO DAILY 10/12/18 Gabapentin [Neurontin] 600 mg PO BIDCM 11/12/18 sotalol 120 mg tablet 120 mg PO BID #180 tab 11/15/18 Cyanocobalamin (Vitamin B-12) 1,000 mcg PO DAILY 11/22/18 [Vitamin B-12] Doxycycline 100 mg PO BID 11/22/18 Fluticasone Furoate [Arnuity 2 puff INHALATION PRN PRN 11/22/18 Ellipta] Ipratropium [place] 1 spray NS Q6H PRN 11/22/18 Turmeric/Turmeric Root Extract 1 ea PO BID 11/22/18 [Turmeric 500 mg Capsule] Surgical History: Surgical History (Last Reviewed 11/19/18 @ 14:10 by Camila Jaime) Presence of biventricular implantable cardioverter-defibrillator (ICD) (Chronic) Z95.810 H/O oral surgery Z98.890 History of elbow surgery Z98.890 History of left heart catheterization Onset Date: 11/24/17 Z98.890 History of lithotripsy Z98.890 Hx of cholecystectomy Onset Date: 11/22/17 Z90.49 Surgical History: cholecystectomy, pacemaker implantation Lives: Spouse/ Significant Other Smoking Status: Never smoker Tobacco Use: Non-smoker Alcohol: None Drugs: None - *Family History Maternal Family History: Family History (Last Reviewed 11/22/18 @ 18:12 by IVELISSE Moreno) Father Cancer Mother Cancer Sister Myocardial infarction Diabetes Heart disease Uncle CAD (coronary artery disease) Review of Systems Constitutional: Denies: Chills, Fever, Weight Change, Fatigue HEENT: Denies: Head Aches, Sinus Congestion, Sinus Drainage Cardiovascular: Denies: Chest Pain, Chest Pressure, Chest Tightness, Heaviness, Light Headedness, Palpitations Respiratory: Denies: Cough, Shortness of Breath, Shortness of breath at rest, Shortness of breath upon exertion, Sputum production, Wheezing Gastrointestinal: Reports: Nausea. Denies: Abdominal Pain, Diarrhea, Vomiting Genitourinary: Denies: Dysuria Musculoskeletal: Reports: - - Right foot pain, R fernandez hematoma no open wounds. Denies: Joint Pain, Joint Tenderness Skin: Reports: Lesions - RLE cellulitic changes.. Denies: Rash, Wounds Neurological: Denies: Numbness, Tingling, Focal weakness Psychiatric: Denies: Anxiety, Depression, Homicidal Ideations, Suicidal Ideations Hematologic/ Lymphatic: Denies: Easy Bruising, Easy Bleeding VTE Information - Inpt Only VTE Present on Admission: No VTE Mechan Device Prophylaxis: None VTE Pharm Prophylaxis ordered?: Yes Patient Problems: Active and Suspected Problems (Last Reviewed 11/19/18 @ 14:10 by Camila Jaime) Right leg pain (Acute) Inability to ambulate due to right ankle or foot (Acute) Cellulitis (Acute) Hematoma (Acute) - Physical Exam General: Alert, Oriented x3, Cooperative HEENT: Atraumatic, PERRLA, EOMI, Normocephalic Neck: Supple, No JVD, Negative Carotid Bruits Lungs: Clear to auscultation, Normal air movement Cardiovascular: Regular rate, No murmurs Abdomen: Bowel Sounds Present, Soft, Non Tender Extremities: No edema, Capillary Refill Less than 3 Seconds Skin: - - hematoma right fernandez. no open wounds or drainage. increased erythema and warmth Musculoskeletal: Tenderness - marked tenderness of the R foot. Neurological: Cranial nerves II-XII grossly intact Psych/Mental Status: Normal Affect, Appropriate, Alert and oriented to time, place, person, mood and affect Vital Signs Temp Pulse Resp BP Pulse Ox 98.6 F 81 23 H 162/96 H 96 11/22/18 16:24 11/22/18 18:02 11/22/18 18:02 11/22/18 18:02 11/22/18 18:02 Oxygen Delivery Method Room Air Weight: 325 lb 6.436 oz Body Mass Index (BMI) 49.4 Laboratory Tests Past 24 Hrs 11/22/18 11/22/18 11/22/18 16:59 16:59 16:59 WBC 12.6 H RBC 5.07 Hgb 14.3 Hct 44.0 MCV 86.8 MCH 28.2 MCHC 32.5 RDW Std Deviation 51.0 H RDW Coeff of Diana 16.5 H Plt Count 168 MPV 9.8 Immature Gran % (Auto) 0.600 Neut % (Auto) 74.0 H Lymph % (Auto) 9.7 L [place] % (Auto) 14.0 H Eos % (Auto) 1.2 Baso % (Auto) 0.5 Absolute Neuts (auto) 9.4 H Absolute Lymphs (auto) 1.22 Nucleated RBC % 0 PT 17.5 H INR 1.5 APTT 38.8 H Sodium 139 Potassium 3.8 Chloride 104 Carbon Dioxide 28.0 Anion Gap 7 BUN 23 H Creatinine 1.49 H Estim Creat Clear Calc 46.54 Est GFR (MDRD) Af Amer 60 Est GFR (MDRD) Non-Af 50 L BUN/Creatinine Ratio 15.4 Glucose 148 H Calcium 8.8 Total Bilirubin 7.90 H AST 13 L ALT 26 Alkaline Phosphatase 65 Troponin I < 0.015 Total Protein 7.6 Albumin 3.6 Globulin 4.0 Albumin/Globulin Ratio 0.9 Assessment/Plan All Active Problems (Last Reviewed 11/19/18 @ 14:10 by Camila Jaime) Right leg pain (Acute) Inability to ambulate due to right ankle or foot (Acute) Cellulitis (Acute) Hematoma (Acute) Segmental and somatic dysfunction of pelvic region (Acute) Segmental and somatic dysfunction of lumbar region (Acute) Segmental and somatic dysfunction of thoracic region (Acute) Gallstones (Resolved) 1. Acute cellulitis of the RLE - failed outpatient doxy. Start cefazolin. Large hematoma, reportedly this has been improving. This is 2/2 a mechanical fall and aspirin/eliquis therapy. Elevated bili likely hemolyzation. No drainage. Mild leukocytosis. No fever. Check Xray foot. Xray tib/fib and ankle negative. Ongoing tenderness of the foot. 2. HTN urgency - Add prn hydralazine. 3. Hx idiopathic CM - pt of dr. Taylor. Has AICD. 4. Chronic Afib - pacemaker, eliquis. He is on sotalol and coreg. 5. Dmt2 with morbid obesity -dietary eval. Hold janumet. Continue levamir, add SSI. 6. HLD - atorvastatin 7. COPD - no acute exacerbation. prn aerosols. 8. Depression - wellbutrin 9. DDD - chronic pain, patient of Dr. Matson, recent radiofrequency ablation. DVT ppx: eliquis DC planning: cant walk currently. PTOT. This patient was seen by True Guadalupe PA-C under the supervision of Dr. Álvarez. <Tonya Álvarez - Last Filed: 11/22/18 18:59> History of Present Illness The patient is a 67 year old M [] Past Medical History Medical History: Medical History (Last Reviewed 11/19/18 @ 14:10 by Camila Jaime) Hyperlipidemia (Chronic) E78.5 Atherosclerosis of coronary artery of [place] heart without angina pectoris (Chronic) I25.10 Stage 2 moderate COPD by GOLD classification (Chronic) J44.9 Asthma (Chronic) J45.909 ARMANDO (obstructive sleep apnea) (Chronic) G47.33 22/12 cm of water, backup rate of 16 Diabetes type 2, controlled (Chronic) E11.9 COPD (chronic obstructive pulmonary disease) (Chronic) J44.9 Cardiomyopathy, idiopathic (Chronic) I42.8 HTN (hypertension), benign (Chronic) I10 Persistent atrial fibrillation (Chronic) I48.1 Cholelithiases K80.20 History of nephrolithiasis Z87.442 Multiple renal calculi N20.0 Osteoarthritis M19.90 Vitamin D deficiency E55.9 Gallstones (Resolved) K80.20 Back problem (Inactive) M53.9 Dyslipidemia (Inactive) E78.5 High triglycerides (Inactive) E78.1 Allergies moxifloxacin HCl [From Avelox] Allergy (Verified 11/22/18 16:23) Hives Surgical History: Surgical History (Last Reviewed 11/19/18 @ 14:10 by Camila Jaime) Presence of biventricular implantable cardioverter-defibrillator (ICD) (Chronic) Z95.810 H/O oral surgery Z98.890 History of elbow surgery Z98.890 History of left heart catheterization Onset Date: 11/24/17 Z98.890 History of lithotripsy Z98.890 Hx of cholecystectomy Onset Date: 11/22/17 Z90.49 - *Family History Maternal Family History: Family History (Last Reviewed 11/22/18 @ 18:12 by IVELISSE Moreno) Father Cancer Mother Cancer Sister Myocardial infarction Diabetes Heart disease Uncle CAD (coronary artery disease) - Physical Exam Vital Signs Temp Pulse Resp BP Pulse Ox 98.6 F 82 16 162/96 H 98 11/22/18 16:24 11/22/18 18:02 11/22/18 18:02 11/22/18 18:02 11/22/18 18:02 Oxygen Delivery Method Room Air Weight: 147.6 kg Body Mass Index (BMI) 49.4 Laboratory Tests Past 24 Hrs 11/22/18 11/22/18 11/22/18 16:59 16:59 16:59 WBC 12.6 H RBC 5.07 Hgb 14.3 Hct 44.0 MCV 86.8 MCH 28.2 MCHC 32.5 RDW Std Deviation 51.0 H RDW Coeff of Diana 16.5 H Plt Count 168 MPV 9.8 Immature Gran % (Auto) 0.600 Neut % (Auto) 74.0 H Lymph % (Auto) 9.7 L [place] % (Auto) 14.0 H Eos % (Auto) 1.2 Baso % (Auto) 0.5 Absolute Neuts (auto) 9.4 H Absolute Lymphs (auto) 1.22 Nucleated RBC % 0 Differential Comment SEE COMMENT Toxic Granulation RARE Platelet Estimate ADEQUATE RBC Morphology NORM C+C PT 17.5 H INR 1.5 APTT 38.8 H Sodium 139 Potassium 3.8 Chloride 104 Carbon Dioxide 28.0 Anion Gap 7 BUN 23 H Creatinine 1.49 H Estim Creat Clear Calc 46.54 Est GFR (MDRD) Af Amer 60 Est GFR (MDRD) Non-Af 50 L BUN/Creatinine Ratio 15.4 Glucose 148 H Calcium 8.8 Total Bilirubin 7.90 H AST 13 L ALT 26 Alkaline Phosphatase 65 Troponin I < 0.015 Total Protein 7.6 Albumin 3.6 Globulin 4.0 Albumin/Globulin Ratio 0.9 Assessment/Plan This patient was seen in conjunction with IVELISSE Moreno. I have independently interviewed and examined the patient and reviewed pertinent historical, laboratory, and other data. Please refer to IVELISSE Moreno note for his patient's presentation, findings, and recommendations. I have reviewed and his note and concur with his documentation 67-year-old male with multiple chronic comorbidities significant for ischemic cardiomyopathy status post pacemaker and AICD, chronic atrial fibrillation on Eliquis who comes in after a fall 6 days ago and cannot walk on his right lower extremity. Patient tripped over a trash can bag 6 days ago. He however was able to walk on the leg. He came to the emergency department 3 days later, when he noticed bruising over his right lower extremity. Imaging at that time was unremarkable for fractures. Patient followed up with his primary care doctor yesterday and was prescribed doxycycline. He comes into the emergency room today because he is unable to to walk on his right foot. He denied any fever or chills. Vitals in the ED showed elevated blood pressures, 186/121. Patient denies any pain at rest only when he walks. Review of systems was negative Physical Exam: Gen: Morbidly obese, not pale, not jaundiced, well hydrated, on 3L oxygen CVS:HS I +II, regular, no murmurs RESP: Diminished, no wheezes GI: BS present and normal, soft, nontender, no palpable organs EXT:ecchymosis/bruising over the right lower leg, differential warmth, erythema of the lower leg, early developing blisters grouped around the anterolateral right ankle ASSESSMENT: 1. Right lower leg cellulitis 2. Ecchymosis/bruising of right lower leg secondary to recent fall 3. Acute hypoxic respiratory insufficiency 4. Hypertensive urgency 5. Morbid obesity 6. Dilated idiopathic cardiomyopathy status post AICD 7. ARMANDO on BiPAP 8. COPD, not in acute exacerbation 9. Chronic atrial fibrillation Plan: Admit to PCU, elevate right lower extremity, IV cefazolin Chest x-ray, BNpep Hydralazine prn Continue Eliquis PT and OT to evaluate and treat Code Visit Inpatient E&M: 69628 Subs Hosp L2
[2018-11-22] MEDS: Cefazolin 1 GM/50 ML BAG IV (18:18)
[2018-11-22 18:25] LABS: Platelet Estimate ADEQUATE (ADEQ); Red Cell Morphology NORM C+C NORMAL (NORM C&C); Toxic Granulation RARE
[2018-11-22 19:30] LABS: Bilirubin, Direct 0.46 mg/dL (0.00-0.30)
--- NOTE | 2018-11-22 19:50 | RAD_ITS ---
STUDY: X-RAY CHEST REASON FOR EXAM: Male, 67 years old. Chest pain TECHNIQUE: Frontal view of the chest COMPARISON: X-ray chest October 04, 2018 FINDINGS: Left chest pacemaker is present. There is mild pulmonary edema. There is a small left base infiltrate with effusion. The right pleural space is clear. There is no pneumothorax. The heart is mild enlarged. The visualized osseous structures are within normal limits. RAD/Chest 1 View (Portable) IMPRESSION: Mild edema and small left base infiltrate with effusion. Mild cardiomegaly. Electronically Signed: Murphy Oglesby, at 20:32 EDT Tel , Service support ,
[2018-11-22] MEDS: Ipratropium/Albuterol Sulfate 3 ML AMPUL.NEB INHALATION (20:06)
[2018-11-22] MEDS: Sotalol Hydrochloride 80 MG Tablet 120 MG PO (22:52)
[2018-11-22] MEDS: Carvedilol 12.5 MG Tablet PO (22:52)
[2018-11-22] MEDS: APIXABAN 5 MG TABLET PO (22:53)
[2018-11-22] MEDS: buPROPion (XL) 150 MG TABLET.XL PO (22:53)
[2018-11-22] MEDS: traMADol 50 MG Tablet PO (22:53)
[2018-11-22] MEDS: Atorvastatin Calcium 20 MG Tablet PO (22:53)
[2018-11-22] MEDS: Glucerna Shake 120 ML LIQUID PO (23:02)
[2018-11-23] VITALS (16 sets, daily range): BP systolic 111–138; BP diastolic 63–72; PULSE 70–78; RESP 16–21; TEMP 36.7–37.3; O2SAT 93–95
[2018-11-23 02:10] LABS: Bedside Glucose 149 mg/dL (70-110)
[2018-11-23 06:18] LABS: Absolute Lymphocyte Count 1.69 X10^3/uL (0.83-4.51); Absolute Neutrophil Count 8.9 X10^3/uL (2.0-7.7); Basophil# 0.08 X10^3/uL; Basophil% 0.6 % (0-1); Eosinophil# 0.25 X10^3/uL; Hematocrit 40.5 % (40-54); Hemoglobin 13.2 g/dL (13.0-16.5); Lymphocyte # 1.69 X10^3/ul (4.0); Lymphocyte % 13.4 % (19-41); Mean Corp Hgb Conc 32.6 g/dL (32-36); Mean Corpuscular Hgb 28.3 pg (27.0-32.0); Mean Corpuscular Volume 86.7 fL (80-94); Monocyte# 1.64 X10^3/uL; NRBC Flagged by Analyzer 0 % (0-5); Neutrophil # 8.87 X10^3/uL (2.7-7.7); Neutrophil % 70.4 % (47-70); POSITIVE DIFFERENTIAL YES; Platelet Count 172 K/mm3 (150-450); RBC Distribution Width CV 16.6 % (11.6-14.6); Red Blood Count 4.67 M/mm3 (4.6-6.2); White Blood Count 12.6 K/mm3 (4.4-11.0)
[2018-11-23 06:29] LABS: Differential Indicated SCAN CRITERIA MET
[2018-11-23 06:48] LABS: ALB/GLOB Ratio 0.8 RATIO (0.9-2.4); AST(SGOT) 85 U/L (15-37); Alanine Aminotransfer ALT/SGPT 114 U/L (16-61); Albumin, Serum 3.2 g/dL (3.2-5.0); Alkaline Phosphatase 104 U/L (45-117); Anion Gap 7 (5-15); BUN 29 mg/dL (7-18); BUN/Creat Ratio 19.9 RATIO (10-20); Calcium,Total 8.6 mg/dL (8.5-10.1); Chloride 105 mmol/L (98-107); Creatinine, Serum 1.46 mg/dL (0.70-1.30); EST Glomerular Filtration Rate 51 mL/min (>60); Est Glom Filt Rate - Afr Amer 62 mL/min (>60); Globulin 3.9 g/dL (2.2-4.2); Glucose 145 mg/dL (74-106); Protein, Total 7.1 g/dL (6.4-8.2); Sodium Level 137 mmol/L (136-145); T4 Free Direct 1.18 ng/dL (0.76-1.46); Thyroid Stim Hormone (TSH) 1.24 uIU/mL (0.358-3.74)
[2018-11-23] MEDS: Ipratropium/Albuterol Sulfate 3 ML AMPUL.NEB INHALATION ×4 (06:50→18:37)
[2018-11-23] MEDS: Budesonide Respules 0.5 MG/2 ML AMPUL.NEB. INHALATION ×2 (06:50→19:48)
[2018-11-23] MEDS: 0.9% Saline Lock 10 ML Syringe IV ×2 (07:01→21:57)
[2018-11-23] MEDS: Cefazolin 1 GM/50 ML BAG IV ×3 (07:05→21:54)
[2018-11-23] MEDS: Sotalol Hydrochloride 80 MG Tablet 120 MG PO ×2 (08:04→21:54)
[2018-11-23] MEDS: Tamsulosin HCl 0.4 MG Capsule PO (08:04)
[2018-11-23] MEDS: Gabapentin 600 MG Tablet PO ×2 (08:04→17:50)
[2018-11-23] MEDS: buPROPion (XL) 150 MG TABLET.XL PO ×2 (08:04→21:56)
[2018-11-23] MEDS: Carvedilol 12.5 MG Tablet PO ×2 (08:06→21:55)
[2018-11-23] MEDS: Celecoxib 200 MG Capsule PO (08:06)
[2018-11-23] MEDS: LINAGLIPTIN 5 MG TABLET PO (08:06)
[2018-11-23] MEDS: Aspirin E.C. 81 MG Tablet PO (08:06)
[2018-11-23] MEDS: amLODIPine 5 MG Tablet PO (08:06)
[2018-11-23] MEDS: APIXABAN 5 MG TABLET PO ×2 (08:07→21:55)
[2018-11-23] MEDS: Famotidine 20 MG Tablet PO (08:07)
[2018-11-23] MEDS: Glucerna Shake 120 ML LIQUID PO ×2 (08:12→14:16)
[2018-11-23] MEDS: traMADol 50 MG Tablet PO ×2 (08:12→21:55)
--- NOTE | 2018-11-23 08:39 | PCM.PROGNOTE ---
Patient Problems: Active and Suspected Problems (Last Updated 11/23/18 @ 07:18 by Hanna Meraz MD) Cellulitis (Suspected) Hematoma (Acute) Subjective: Chief complaint: Follow-up after admission for acute traumatic right leg hematoma, probable cellulitis of the right leg and uncontrolled hypertension. Patient seen and examined. No acute events overnight. Today, he denies any complaints. Denies fever or chills. Denied right leg pain. No chest pain or shortness of breath. Denies abdominal pain, nausea vomiting. His vital signs are stable. - Physical Exam General: Alert, Oriented x3, Cooperative, No apparent distress HEENT: Atraumatic, EOMI, Normocephalic Oral: Moist Mucosa, No Gingival or Mucosal Lesions/ Ulcerations Neck: Supple, No JVD, Negative Carotid Bruits, Trachea Midline, Thyroid Normal Size and Texture Lungs: Clear to auscultation, No rhonchi, No wheeze, No rales, Diminished Cardiovascular: Normal S1, Normal S2, PMI Normal, Irregular Rate Abdomen: Bowel Sounds Present, Soft, Non Tender, Non-Distended, No Hepato-splenomegaly, Obese Extremities: No clubbing, No cyanosis, Edema - Trace edema., - - Right leg: Bruises/ecchymosis involving the lower one half of the right leg with localized hematoma on the posterior aspect, small in size. Skin: No rashes, No breakdown Lymphatic: No Cervical, Supraclavicular, or Inguinal Adenopathy Neurological: Cranial nerves II-XII grossly intact, Motor Exam 5/5 strength throughout Psych/Mental Status: Normal Affect, Appropriate, Alert and oriented to time, place, person, mood and affect Vital Signs Temp Pulse Resp BP Pulse Ox 98.0 F 70 16 129/63 H 93 11/23/18 05:08 11/23/18 07:31 11/23/18 06:50 11/23/18 05:08 11/23/18 06:50 Oxygen Flow Rate (L/min) 3 Oxygen Delivery Method Room Air Weight: 318 lb Body Mass Index (BMI) 48.3 Intake and Output for Last 24 Hours 11/21/18 11/22/18 11/23/18 23:59 23:59 23:59 Intake Total 826 / 826 50.25 / 50.25 Output Total 0 / 0 250 / 250 Balance 826 / 826 -199.75 / -199.75 Laboratory Tests Past 24 Hrs 11/22/18 11/22/18 11/22/18 16:59 16:59 16:59 WBC 12.6 H RBC 5.07 Hgb 14.3 Hct 44.0 MCV 86.8 MCH 28.2 MCHC 32.5 RDW Std Deviation 51.0 H RDW Coeff of Diana 16.5 H Plt Count 168 MPV 9.8 Immature Gran % (Auto) 0.600 Neut % (Auto) 74.0 H Lymph % (Auto) 9.7 L [place] % (Auto) 14.0 H Eos % (Auto) 1.2 Baso % (Auto) 0.5 Absolute Neuts (auto) 9.4 H Absolute Lymphs (auto) 1.22 Nucleated RBC % 0 Differential Comment SEE COMMENT Diff Path Review Toxic Granulation RARE Platelet Estimate ADEQUATE RBC Morphology NORM C+C PT 17.5 H INR 1.5 APTT 38.8 H Sodium 139 Potassium 3.8 Chloride 104 Carbon Dioxide 28.0 Anion Gap 7 BUN 23 H Creatinine 1.49 H Estim Creat Clear Calc 46.54 Est GFR (MDRD) Af Amer 60 Est GFR (MDRD) Non-Af 50 L BUN/Creatinine Ratio 15.4 Glucose 148 H Calcium 8.8 Total Bilirubin 7.90 H Direct Bilirubin AST 13 L ALT 26 Alkaline Phosphatase 65 Troponin I < 0.015 B-Natriuretic Peptide Total Protein 7.6 Albumin 3.6 Globulin 4.0 Albumin/Globulin Ratio 0.9 TSH Free T4 11/22/18 11/23/18 11/23/18 16:59 05:25 05:25 WBC 12.6 H RBC 4.67 Hgb 13.2 Hct 40.5 MCV 86.7 MCH 28.3 MCHC 32.6 RDW Std Deviation 52.0 H RDW Coeff of Diana 16.6 H Plt Count 172 MPV 10.0 Immature Gran % (Auto) 0.600 Neut % (Auto) 70.4 H Lymph % (Auto) 13.4 L [place] % (Auto) 13.0 H Eos % (Auto) 2.0 Baso % (Auto) 0.6 Absolute Neuts (auto) 8.9 H Absolute Lymphs (auto) 1.69 Nucleated RBC % 0 Differential Comment Diff Path Review May foll Toxic Granulation Platelet Estimate RBC Morphology PT INR APTT Sodium 137 Potassium 4.0 Chloride 105 Carbon Dioxide 25.0 Anion Gap 7 BUN 29 H Creatinine 1.46 H Estim Creat Clear Calc 47.50 Est GFR (MDRD) Af Amer 62 Est GFR (MDRD) Non-Af 51 L BUN/Creatinine Ratio 19.9 Glucose 145 H Calcium 8.6 Total Bilirubin 7.50 H Direct Bilirubin 0.46 H AST 85 H ALT 114 H Alkaline Phosphatase 104 Troponin I B-Natriuretic Peptide Total Protein 7.1 Albumin 3.2 Globulin 3.9 Albumin/Globulin Ratio 0.8 L TSH 1.24 Free T4 1.18 11/23/18 05:25 WBC RBC Hgb Hct MCV MCH MCHC RDW Std Deviation RDW Coeff of Diana Plt Count MPV Immature Gran % (Auto) Neut % (Auto) Lymph % (Auto) [place] % (Auto) Eos % (Auto) Baso % (Auto) Absolute Neuts (auto) Absolute Lymphs (auto) Nucleated RBC % Differential Comment Diff Path Review Toxic Granulation Platelet Estimate RBC Morphology PT INR APTT Sodium Potassium Chloride Carbon Dioxide Anion Gap BUN Creatinine Estim Creat Clear Calc Est GFR (MDRD) Af Amer Est GFR (MDRD) Non-Af BUN/Creatinine Ratio Glucose Calcium Total Bilirubin Direct Bilirubin AST ALT Alkaline Phosphatase Troponin I B-Natriuretic Peptide Pending Total Protein Albumin Globulin Albumin/Globulin Ratio TSH Free T4 POC Glucose 11/22/18 22:58 POC Glucose 149 H Clinical Impression(s) from Imaging Studies Brain CT 11/22/18 16:37 IMPRESSION: No acute intracranial abnormality. Electronically Signed: Murphy Oglesby, at 17:30 EDT Tel , Service support , Foot X-Ray 11/22/18 17:57 IMPRESSION: No fracture or dislocation. Soft tissue swelling. Electronically Signed: Murphy Oglesby, at 18:44 EDT Tel , Service support , Chest X-Ray 11/22/18 19:50 IMPRESSION: Mild edema and small left base infiltrate with effusion. Mild cardiomegaly. Electronically Signed: Murphy Oglesby, at 20:32 EDT Tel , Service support , Medical Necessity - Tobacco Use Smoking Status: Never smoker Tobacco Use: Non-smoker Assessment/Plan All Active Problems (Last Updated 11/23/18 @ 07:18 by Hanna Meraz MD) Hematoma (Acute) This is a 67 years old male patient presented to the emergency room because of right leg pain after he had a mechanical fall, found to have right lower leg subcutaneous hematoma with probable secondary cellulitis and uncontrolled hypertension. #1 acute traumatic right lower leg hematoma/subcutaneous bleeding: Patient does have small hematoma with diffuse subcutaneous bleeding of the lower one half of the right leg. It is due to mechanical fall, being on aspirin and Eliquis. X-ray of the right foot showed no acute fractures. Patient does not have any significant pain. Blood pressure improved, other vitals are stable. Hemoglobin and hematocrit are stable. Plan for PT OT evaluation and treatment. #2 probable right leg cellulitis: On IV cefazolin. He has been afebrile, has mild leukocytosis. Plan to continue empiric IV antibiotics. #3 mechanical fall/difficulty ambulating: Without significant trauma or fractures. No head trauma. CT scan brain showed no acute findings. Plan for PT OT evaluation and treatment. #4 uncontrolled hypertension: Today, blood pressure improved. Continue Norvasc, Coreg and IV hydralazine PRN. #5 type 2 diabetes mellitus: Blood sugar stable, continue Lantus twice daily, sliding scale and Tradjenta, keep holding metformin for now. #7 chronic atrial fibrillation: Status post pacemaker. Heart rate stable, continue Coreg for rate control and Eliquis for anticoagulation. #8 chronic systolic CHF/idiopathic cardiomyopathy: Status post ICD, clinically stable, compensated. Continue beta-blockers and statin as well as aspirin. #8 stage III chronic kidney disease: Baseline creatinine has been around 1.3 to 1.7 mg/dL. Today's creatinine is 1.46, stable at baseline. #9 COPD: Stable, on DuoNeb and Pulmicort, pulse ox is maintained on room air. #10 DVT prophylaxis: Continue Eliquis. This note was generated with [employer] dictation software. It may contain incorrect words, spelling, and punctuation that were not noted in checking the note before signing. Code Visit Inpatient E&M: 31885 Subs Hosp L2 OBSV E&M: 29525 Subsequent observation care L2
--- NOTE | 2018-11-23 09:55 | CASEMGMT ---
HOMER received a call from Fernanda at [facility]. She said patient has aides twice a week through [employer]. He gets home delivered meals and has a lifeline button. She asked that HOMER fax patient's d/c instructions when he is discharged. Nesha JIMENES MSW
[2018-11-23 11:11] LABS: Bedside Glucose 139 mg/dL (70-110)
[2018-11-23 11:16] LABS: Bedside Glucose 129 mg/dL (70-110)
--- NOTE | 2018-11-23 13:27 | CASEMGMT ---
Assessment- SW completed assessment with patient. He has Passport services through [facility]. His Crown Buffer is Fernanda Garces. He has aides 2 days a week to help with cleaning, home delivered meals, and a life alert button. Living situation- Patient lives with his in a mobile home with 3 entry steps. PCP: Dr Adithya Weaver Specialists: Dr Matson-Pain Management, Dr Brizuela-Doormaker, Dr Taylor-Cardiology Pharmacy: [facility] DME: raised toilet seat, walk in tub, shower chair is built in, lift chair, cpap from [employer] ADL's/IADL's: Patient is normally independent with meds, bathing, and driving. He has aides 2 days a week that assist with cleaning. His cooks. However, recently after his fall he has not been able to walk. Past SNF/rehab: none Past HH: none LW: Yes. He will have his bring them to [facility] POA: Yes. He will have his bring them to [facility] Plan: SW spoke with patient. He is not sure about d/c plan yet. He asked if SW could come back when his arrives. SW will check back. Nesha JIMENES IRONWORKER MACHINE OPERATOR
--- NOTE | 2018-11-23 13:43 | CASEMGMT ---
Addendum entered by Nesha Perea 11/23/18 14:57: SW spoke with Mely at [facility] and they can accept patient. They started the pre-cert. SW let patient and his know this information. SW also let them know that it is unlikely we would hear today and that insurance does not work on the weekends. Therefore he will be her until Monday. Plan: [facility] pending insurance approval. Nesha WEAVER Original Note: SW met with patient and his . Introduced self to and role at [facility]. Patient and his both said patient will need to go to a penitentiary for rehab. SW gave them a list of facilities that are in network with his insurance. Their first choice is [facility]. They will work on picking 2 other choices in the event [facility] does not work out. SW explained SW will make the referral. SW will let them know if [facility] can take him as soon as SW hears anything. HOMER also explained he will not go anywhere until insurance approves him. HOMER called [facility] with referral and also faxed referral. Mely said they should be able to take him as long as his insurance checks out ok. She would start the pre-cert right away, but it is unlikely we would receive it today. Plan: [facility] pending their acceptance and insurance approval. Nesha WEAVER
[2018-11-23 14:32] LABS: Pathologist Review Reviewed
[2018-11-23 14:34] LABS: Pathologist Review Reviewed
--- NOTE | 2018-11-23 16:25 | CHAPLAIN ---
Type of Pastoral Visit _x__ Initial Visit ___ Follow-up Visit ___ On-call Visit ___ General Patient Visit ___ Spiritual Assessment ___ Family Conference ___ Bereavement ___ Rapid Response ___ Code Blue ___ Other (describe below) Pastoral Care Referral From _x__ Patient ___ Family ___ Nurse ___ Physician ___ Sports Athletic Trainer ___ Fly Tier ___ Other (describe below) Sacrament/Intervention _x__ Active listening ___ Anointing ___ Uatsdin ___ Bereavement ___ Communion ___ Frances exploration ___ _x__ Life review _x__ Prayer ___ Reconciliation ___ Sacrament of Sick _x__ Supportive presence ___ Wedding ___ Other (describe below) Pastoral Comments
[2018-11-23 16:31] LABS: Bedside Glucose 138 mg/dL (70-110)
[2018-11-23] MEDS: Atorvastatin Calcium 20 MG Tablet PO (21:55)
[2018-11-23] MEDS: Montelukast 10 MG Tablet PO (21:56)
[2018-11-24] VITALS (12 sets, daily range): BP systolic 104–111; BP diastolic 41–70; PULSE 60–73; RESP 16–24; TEMP 36.4–37; O2SAT 94–97
[2018-11-24] MEDS: Cefazolin 1 GM/50 ML BAG IV ×3 (05:28→22:00)
[2018-11-24 06:40] LABS: Bedside Glucose 113 mg/dL (70-110)
[2018-11-24] MEDS: Ipratropium/Albuterol Sulfate 3 ML AMPUL.NEB INHALATION ×4 (07:16→19:17)
[2018-11-24] MEDS: Budesonide Respules 0.5 MG/2 ML AMPUL.NEB. INHALATION ×2 (07:16→19:18)
--- NOTE | 2018-11-24 08:40 | PCM.PROGNOTE ---
Patient Problems: Active and Suspected Problems (Last Updated 11/23/18 @ 07:18 by Hanna Meraz MD) Cellulitis (Suspected) Hematoma (Acute) Subjective: Chief complaint: Follow-up after admission for acute traumatic right leg hematoma, probable cellulitis of the right leg and uncontrolled hypertension. Patient seen and examined. No acute events overnight. He reported some right leg pain, discomfort. Denies fever chills. No other complaints. His vital signs are stable. - Physical Exam General: Alert, Oriented x3, Cooperative, No apparent distress HEENT: Atraumatic, PERRLA, EOMI, Normocephalic Oral: Moist Mucosa, No Gingival or Mucosal Lesions/ Ulcerations Neck: Supple, No JVD, Negative Carotid Bruits, Trachea Midline, Thyroid Normal Size and Texture Lungs: Clear to auscultation, Normal air movement, No rhonchi, No wheeze, No rales, Diminished Cardiovascular: Normal S1, Normal S2, No murmurs, PMI Normal, Irregular Rate Abdomen: Bowel Sounds Present, Soft, Non Tender, Non-Distended, No Hepato-splenomegaly, Obese Extremities: No clubbing, No cyanosis, Edema - Trace edema. Right leg: Hematoma, ecchymosis and bruises. Skin: No rashes, No breakdown Lymphatic: No Cervical, Supraclavicular, or Inguinal Adenopathy Neurological: Cranial nerves II-XII grossly intact, Neuro grossly intact Psych/Mental Status: Normal Affect, Appropriate, Alert and oriented to time, place, person, mood and affect Vital Signs Temp Pulse Resp BP Pulse Ox 98.6 F 70 16 104/62 96 11/24/18 03:23 11/24/18 07:41 11/24/18 07:16 11/24/18 03:23 11/24/18 07:16 Oxygen Flow Rate (L/min) 3 Oxygen Delivery Method Room Air Weight: 317 lb 15.987 oz Body Mass Index (BMI) 48.3 Intake and Output for Last 24 Hours 11/22/18 11/23/18 11/24/18 23:59 23:59 23:59 Intake Total 826 / 826 1112.00 / 1112.00 59 / 59 Output Total 0 / 0 850 / 850 400 / 400 Balance 826 / 826 262.00 / 262.00 -341 / -341 Laboratory Tests Past 24 Hrs 11/22/18 11/23/18 11/23/18 16:59 05:25 05:25 Diff Path Review Reviewed Reviewed B-Natriuretic Peptide 53.0 POC Glucose 11/24/18 11/23/18 11/23/18 06:36 16:24 11:05 POC Glucose 113 H 138 H 139 H 11/23/18 07:07 POC Glucose 129 H Medical Necessity - Tobacco Use Smoking Status: Never smoker Tobacco Use: Non-smoker Assessment/Plan All Active Problems (Last Updated 11/23/18 @ 07:18 by Hanna Meraz MD) Hematoma (Acute) This is a 67 years old male patient presented to the emergency room because of right leg pain after he had a mechanical fall, found to have right lower leg subcutaneous hematoma with probable secondary cellulitis and uncontrolled hypertension. #1 acute traumatic right lower leg hematoma/subcutaneous bleeding: Due to mechanical fall and being on aspirin and Eliquis. X-ray of the right foot showed no acute fractures. Patient does not have any significant pain. His vital signs are stable hemoglobin and hematocrit are stable. Plan for PT OT evaluation and treatment, placement to correction facility.. #2 probable right leg cellulitis: On IV cefazolin. He has been afebrile, has mild leukocytosis. Plan to continue empiric IV antibiotics. Plan to DC IV antibiotics tomorrow if patient remained afebrile. #3 mechanical fall/difficulty ambulating: Without significant trauma or fractures. No head trauma. CT scan brain showed no acute findings. Plan for PT OT evaluation and treatment. #4 uncontrolled hypertension: Blood pressure stabilized. Continue Norvasc, Coreg and IV hydralazine PRN. #5 type 2 diabetes mellitus: Blood sugar stable, continue Lantus twice daily, sliding scale and Tradjenta, keep holding metformin for now. #7 chronic atrial fibrillation: Status post pacemaker. Heart rate stable, continue Coreg for rate control and Eliquis for anticoagulation. #8 chronic systolic CHF/idiopathic cardiomyopathy: Status post ICD, clinically stable, compensated. Continue beta-blockers and statin as well as aspirin. #8 stage III chronic kidney disease: Baseline creatinine has been around 1.3 to 1.7 mg/dL. Yesterday's creatinine is 1.46, stable at baseline. #9 COPD: Stable, on DuoNeb and Pulmicort, pulse ox is maintained on room air. #10 DVT prophylaxis: Continue Eliquis. This note was generated with [employer] dictation software. It may contain incorrect words, spelling, and punctuation that were not noted in checking the note before signing. Code Visit OBSV E&M: 20903 Subsequent observation care L2
[2018-11-24] MEDS: Aspirin E.C. 81 MG Tablet PO (08:46)
[2018-11-24] MEDS: Sotalol Hydrochloride 80 MG Tablet 120 MG PO (08:47)
[2018-11-24] MEDS: LINAGLIPTIN 5 MG TABLET PO (08:47)
[2018-11-24] MEDS: Gabapentin 600 MG Tablet PO ×2 (08:47→17:23)
[2018-11-24] MEDS: Celecoxib 200 MG Capsule PO (08:48)
[2018-11-24] MEDS: Tamsulosin HCl 0.4 MG Capsule PO (08:48)
[2018-11-24] MEDS: Carvedilol 12.5 MG Tablet PO ×2 (08:48→22:01)
[2018-11-24] MEDS: APIXABAN 5 MG TABLET PO ×2 (08:49→22:02)
[2018-11-24] MEDS: buPROPion (XL) 150 MG TABLET.XL PO ×2 (08:50→22:12)
[2018-11-24] MEDS: Famotidine 20 MG Tablet PO (08:50)
[2018-11-24] MEDS: Furosemide 40 MG Tablet PO (08:54)
[2018-11-24] MEDS: traMADol 50 MG Tablet PO ×2 (08:57→22:12)
[2018-11-24] MEDS: amLODIPine 5 MG Tablet PO (09:05)
[2018-11-24 11:55] LABS: Bedside Glucose 135 mg/dL (70-110)
[2018-11-24 17:30] LABS: Bedside Glucose 125 mg/dL (70-110)
[2018-11-24 21:55] LABS: Bedside Glucose 189 mg/dL (70-110)
[2018-11-24] MEDS: Atorvastatin Calcium 20 MG Tablet PO (22:01)
[2018-11-24] MEDS: Insulin Lispro 100 UNIT/ML INSULN.PEN SC (22:03)
[2018-11-24] MEDS: Montelukast 10 MG Tablet PO (22:03)
[2018-11-24] MEDS: 0.9% Saline Lock 10 ML Syringe IV (22:09)
[2018-11-25] VITALS (13 sets, daily range): BP systolic 104–143; BP diastolic 55–78; PULSE 69–73; RESP 18–24; TEMP 36.4–36.9; O2SAT 94–97
[2018-11-25 00:46] LABS: Bedside Glucose 146 mg/dL (70-110)
[2018-11-25] MEDS: 0.9% Saline Lock 10 ML Syringe IV (05:52)
[2018-11-25] MEDS: Cefazolin 1 GM/50 ML BAG IV (05:52)
[2018-11-25 06:45] LABS: Bedside Glucose 129 mg/dL (70-110)
[2018-11-25] MEDS: Ipratropium/Albuterol Sulfate 3 ML AMPUL.NEB INHALATION ×4 (07:14→18:54)
[2018-11-25] MEDS: Budesonide Respules 0.5 MG/2 ML AMPUL.NEB. INHALATION ×2 (07:17→18:54)
--- NOTE | 2018-11-25 08:29 | PCM.PROGNOTE ---
Patient Problems: Active and Suspected Problems (Last Updated 11/23/18 @ 07:18 by Hanna Meraz MD) Cellulitis (Suspected) Hematoma (Acute) Subjective: Chief complaint: Follow-up after admission for acute traumatic right leg hematoma, probable cellulitis of the right leg and uncontrolled hypertension. Patient seen and examined. No acute events overnight. Pain and discomfort of the right leg is improving. No other complaints. He has been afebrile, vital signs are stable. - Physical Exam General: Alert, Oriented x3, Cooperative, No apparent distress HEENT: Atraumatic, PERRLA, EOMI, Normocephalic Oral: Moist Mucosa, No Gingival or Mucosal Lesions/ Ulcerations Neck: Supple, No JVD, Negative Carotid Bruits, Trachea Midline, Thyroid Normal Size and Texture Lungs: Clear to auscultation, Normal air movement, No rhonchi, No wheeze, No rales, Diminished Cardiovascular: Normal S1, Normal S2, No murmurs, PMI Normal, Irregular Rate Abdomen: Bowel Sounds Present, Soft, Non Tender, Non-Distended, No Hepato-splenomegaly, Obese Extremities: No clubbing, No cyanosis, Edema - Trace edema. Right leg: Hematoma, ecchymosis and bruises. Skin: No rashes, No breakdown Lymphatic: No Cervical, Supraclavicular, or Inguinal Adenopathy Neurological: Cranial nerves II-XII grossly intact, Neuro grossly intact Psych/Mental Status: Normal Affect, Appropriate, Alert and oriented to time, place, person, mood and affect Vital Signs Temp Pulse Resp BP Pulse Ox 97.6 F L 70 24 H 104/55 L 97 11/25/18 03:50 11/25/18 07:14 11/25/18 07:14 11/25/18 03:50 11/25/18 07:14 Oxygen Flow Rate (L/min) 3 Oxygen Delivery Method Room Air Weight: 317 lb 15.987 oz Body Mass Index (BMI) 48.3 Intake and Output for Last 24 Hours 11/23/18 11/24/18 11/25/18 23:59 23:59 23:59 Intake Total 1112.00 / 1112.00 1183.75 / 1183.75 205.75 / 205.75 Output Total 850 / 850 1625 / 1625 350 / 350 Balance 262.00 / 262.00 -441.25 / -441.25 -144.25 / -144.25 POC Glucose 11/25/18 11/24/18 11/24/18 06:38 21:51 17:19 POC Glucose 129 H 189 H 125 H 11/24/18 11/23/18 11:51 21:45 POC Glucose 135 H 146 H Medical Necessity - Tobacco Use Smoking Status: Never smoker Tobacco Use: Non-smoker Assessment/Plan All Active Problems (Last Updated 11/23/18 @ 07:18 by Hanna Meraz MD) Hematoma (Acute) This is a 67 years old male patient presented to the emergency room because of right leg pain after he had a mechanical fall, found to have right lower leg subcutaneous hematoma with probable secondary cellulitis and uncontrolled hypertension. #1 acute traumatic right lower leg hematoma/subcutaneous bleeding: Due to mechanical fall and being on aspirin and Eliquis. X-ray of the right foot showed no acute fractures. Patient does not have any significant pain. His vital signs are stable hemoglobin and hematocrit are stable. Awaiting placement to custodial facility pending insurance approval. #2 probable right leg cellulitis: On IV cefazolin. He has been afebrile, has mild leukocytosis. Plan to DC IV cefazolin, continue oral Keflex twice daily to complete total 7 days of treatment. #3 mechanical fall/difficulty ambulating: Without significant trauma or fractures. No head trauma. CT scan brain showed no acute findings. Awaiting insurance approval for placement to custodial facility. #4 uncontrolled hypertension: Blood pressure stabilized. Continue Norvasc, Coreg and IV hydralazine PRN. #5 type 2 diabetes mellitus: Blood sugar stable, continue Lantus twice daily, sliding scale and Tradjenta, keep holding metformin for now. #7 chronic atrial fibrillation: Status post pacemaker. Heart rate stable, continue Coreg for rate control and Eliquis for anticoagulation. #8 chronic systolic CHF/idiopathic cardiomyopathy: Status post ICD, clinically stable, compensated. Continue beta-blockers and statin as well as aspirin. #8 stage III chronic kidney disease: Baseline creatinine has been around 1.3 to 1.7 mg/dL. Yesterday's creatinine is 1.46, stable at baseline. #9 COPD: Stable, on DuoNeb and Pulmicort, pulse ox is maintained on room air. #10 DVT prophylaxis: Continue Eliquis. This note was generated with [employer] software. It may contain incorrect words, spelling, and punctuation that were not noted in checking the note before signing. Code Visit OBSV E&M: 08706 Subsequent observation care L2
[2018-11-25] MEDS: Gabapentin 600 MG Tablet PO ×2 (08:34→16:52)
[2018-11-25] MEDS: Aspirin E.C. 81 MG Tablet PO (08:34)
[2018-11-25] MEDS: LINAGLIPTIN 5 MG TABLET PO (08:34)
[2018-11-25] MEDS: traMADol 50 MG Tablet PO ×2 (09:28→22:09)
[2018-11-25] MEDS: Cephalexin 500 MG Capsule PO ×2 (09:29→22:08)
[2018-11-25] MEDS: Celecoxib 200 MG Capsule PO (09:32)
[2018-11-25] MEDS: APIXABAN 5 MG TABLET PO ×2 (09:32→22:08)
[2018-11-25] MEDS: Famotidine 20 MG Tablet PO (09:32)
[2018-11-25] MEDS: Tamsulosin HCl 0.4 MG Capsule PO (09:32)
[2018-11-25] MEDS: Furosemide 40 MG Tablet PO (09:32)
[2018-11-25] MEDS: Carvedilol 12.5 MG Tablet PO ×2 (09:32→22:08)
[2018-11-25] MEDS: amLODIPine 5 MG Tablet PO (09:32)
[2018-11-25] MEDS: Sotalol Hydrochloride 80 MG Tablet 120 MG PO ×2 (09:39→22:07)
[2018-11-25] MEDS: buPROPion (XL) 150 MG TABLET.XL PO ×2 (10:23→22:09)
[2018-11-25 11:16] LABS: Bedside Glucose 134 mg/dL (70-110)
[2018-11-25] MEDS: Magnesium Hydroxide 30 ML UDC PO (15:43)
[2018-11-25 17:00] LABS: Bedside Glucose 148 mg/dL (70-110)
[2018-11-25] MEDS: Atorvastatin Calcium 20 MG Tablet PO (22:08)
[2018-11-25] MEDS: Montelukast 10 MG Tablet PO (22:08)
[2018-11-25 23:50] LABS: Bedside Glucose 120 mg/dL (70-110)
[2018-11-26] VITALS (11 sets, daily range): BP systolic 105–142; BP diastolic 58–79; PULSE 69–92; RESP 18–22; TEMP 36.6–37; O2SAT 96–100
[2018-11-26 07:06] LABS: Bedside Glucose 114 mg/dL (70-110)
[2018-11-26] MEDS: Aspirin E.C. 81 MG Tablet PO (08:28)
[2018-11-26] MEDS: LINAGLIPTIN 5 MG TABLET PO (08:28)
[2018-11-26] MEDS: Gabapentin 600 MG Tablet PO ×2 (08:28→17:17)
[2018-11-26] MEDS: traMADol 50 MG Tablet PO ×2 (09:14→21:46)
[2018-11-26] MEDS: Carvedilol 12.5 MG Tablet PO ×2 (09:15→21:41)
[2018-11-26] MEDS: buPROPion (XL) 150 MG TABLET.XL PO ×2 (09:15→21:47)
[2018-11-26] MEDS: APIXABAN 5 MG TABLET PO ×2 (09:15→21:41)
[2018-11-26] MEDS: Celecoxib 200 MG Capsule PO (09:15)
[2018-11-26] MEDS: Cephalexin 500 MG Capsule PO ×2 (09:15→21:41)
[2018-11-26] MEDS: Famotidine 20 MG Tablet PO (09:16)
[2018-11-26] MEDS: amLODIPine 5 MG Tablet PO (09:16)
[2018-11-26] MEDS: Tamsulosin HCl 0.4 MG Capsule PO (09:16)
[2018-11-26] MEDS: Sotalol Hydrochloride 80 MG Tablet 120 MG PO ×2 (09:16→21:41)
[2018-11-26] MEDS: Furosemide 40 MG Tablet PO (09:16)
--- NOTE | 2018-11-26 09:28 | CASEMGMT ---
HOMER faxed updates to [facility]. HOMER wrote on fax face sheet that patient is ready for discharge and please start pre-cert if it has not been started already. Plan: [facility] pending insurance approval. Nesha JIMENES MSW
[2018-11-26] MEDS: Ipratropium/Albuterol Sulfate 3 ML AMPUL.NEB INHALATION ×3 (10:38→19:50)
[2018-11-26] MEDS: Insulin Lispro 100 UNIT/ML INSULN.PEN SC (10:57)
[2018-11-26 11:10] LABS: Bedside Glucose 167 mg/dL (70-110)
--- NOTE | 2018-11-26 11:22 | CASEMGMT ---
[facility] - Adventure Guide Intro role of CM to patient and [facility] form explained re: Observation status for treatment of cellulitis. Explained hospitalization will be paid per insurance policy for Outpatient billing and condition will continue to be evaluated for Inpt necessity. Also let pt know that [facility] sends paper in the billing packet with their phone number if questions arise. Discussed Pharmacy section of [facility]HOTRA form and self administered medication guideline. Pt has [facility], so will likely be covered. Also explained SNF portion of form does not apply to pt re: 3 day stay as he will have precertification completed prior to dc to SNF. Pt verbalizes understanding and does not have further questions. Form signed and placed in chart, copy to pt. NANCY FRIEDMAN BSN CM
--- NOTE | 2018-11-26 14:54 | PCM.PROGNOTE ---
<True Guadalupe - Last Filed: 11/26/18 14:54> Patient Problems: Active and Suspected Problems (Last Updated 11/23/18 @ 07:18 by Hanna Meraz MD) Cellulitis (Suspected) Hematoma (Acute) Subjective: Pt refusing to walk with therapy due to pain. Now pain is improved and he feels that he can weight bear with a walker. No fever/chills. No SOB/cough. Pt agreeable to SNF placement. Hematoma slowly improving. - Physical Exam Vitals/I&O's: Vital Signs Temp Pulse Resp BP Pulse Ox 98.6 F 72 22 H 142/79 H 96 11/26/18 09:09 11/26/18 10:38 11/26/18 10:38 11/26/18 09:09 11/26/18 09:09 Oxygen Flow Rate (L/min) 3 Oxygen Delivery Method Room Air Weight: 317 lb 15.987 oz Body Mass Index (BMI) 48.3 Intake and Output for Last 24 Hours 11/24/18 11/25/18 11/26/18 23:59 23:59 23:59 Intake Total 1183.75 / 1183.75 1095.75 / 1095.75 960 / 960 Output Total 1625 / 1625 975 / 975 Balance -441.25 / -441.25 120.75 / 120.75 960 / 960 General: Alert, Oriented x3, Cooperative HEENT: Atraumatic, PERRLA, EOMI, Normocephalic Neck: Supple, No JVD, Negative Carotid Bruits Lungs: Clear to auscultation, Normal air movement Cardiovascular: Regular rate, No murmurs Abdomen: Bowel Sounds Present, Soft, Non Tender, Obese Extremities: No edema, Capillary Refill Less than 3 Seconds Skin: No rashes, No breakdown, - - RLE hematoma and cellulitic changes improving. Musculoskeletal: No Tenderness to Palpation of Joints or Extremities Neurological: Cranial nerves II-XII grossly intact Psych/Mental Status: Normal Affect, Appropriate Laboratory Results 11/25/18 16:52: POC Glucose 148 H 11/25/18 22:04: POC Glucose 120 H 11/26/18 06:58: POC Glucose 114 H 11/26/18 10:55: POC Glucose 167 H Current Medications Albuterol/Ipratropium (Duoneb) 3 ml INHALATION Q4HWA.RT [facility] Last Admin: 11/26/18 10:38 Dose: 3 ml Documented by: Amlodipine Besylate (Norvasc) 5 mg PO DAILY [facility] Last Admin: 11/26/18 09:16 Dose: 5 mg Documented by: Apixaban (Eliquis) 5 mg PO BID [facility] Last Admin: 11/26/18 09:15 Dose: 5 mg Documented by: Aspirin (Ecotrin) 81 mg PO DAILYCM [facility] Last Admin: 11/26/18 08:28 Dose: 81 mg Documented by: Atorvastatin Calcium (Lipitor) 20 mg PO QHS [facility] Last Admin: 11/25/18 22:08 Dose: 20 mg Documented by: Budesonide (Pulmicort Aerosol) 0.5 mg INHALATION Q12H.RT [facility] Last Admin: 11/26/18 07:08 Dose: Not Given Documented by: Bupropion HCl (Wellbutrin Xl) 150 mg PO BID [facility] Last Admin: 11/26/18 09:15 Dose: 150 mg Documented by: Carvedilol (Coreg) 12.5 mg PO BID [facility] Last Admin: 11/26/18 09:15 Dose: 12.5 mg Documented by: Celecoxib (Celebrex) 200 mg PO DAILY [facility] Last Admin: 11/26/18 09:15 Dose: 200 mg Documented by: Cephalexin (Keflex) 500 mg PO Q12 [facility] Stop: 11/28/18 22:01 Last Admin: 11/26/18 09:15 Dose: 500 mg Documented by: Dextrose (D50w Syringe) 0 gm IV X1 PRN; Protocol PRN Reason: Hypoglycemia Famotidine (Pepcid) 20 mg PO DAILY [facility] Last Admin: 11/26/18 09:16 Dose: 20 mg Documented by: Furosemide (Lasix) 40 mg PO DAILY [facility] Last Admin: 11/26/18 09:16 Dose: 40 mg Documented by: [facility]in) [facility] Last Admin: 11/26/18 08:28 Dose: 600 mg Documented by: Glucagon () 1 mg IM .X1 PRN PRN Reason: Hypoglycemia Hydralazine HCl (Apresoline Iv) 5 mg IV Q6H PRN PRN PRN Reason: BLOOD PRESSURE Sodium Chloride () 250 mls @ 15 mls/hr IV .[id number] PRN PRN Reason: Saline Flush Last Infusion: 11/25/18 20:33 Dose: Infused Documented by: Insulin Glargine (Lantus (Bkc)) 21 units SC 1100,2200 [facility] Last Admin: 11/26/18 10:56 Dose: 21 u Documented by: Insulin Human Lispro (Humalog Kwikpen (Bkc)) 0 unit SC ACHS [facility]; Protocol Last Admin: 11/26/18 10:57 Dose: 1 u Documented by: Ipratropium [place] (Atrovent Nasal [place] (G)) 1 spray NASAL Q6H PRN PRN PRN Reason: NASAL CONGESTION Linagliptin (Tradjenta) 5 mg PO DAILYCM [facility] Last Admin: 11/26/18 08:28 Dose: 5 mg Documented by: Magnesium Hydroxide (Milk Of Magnesia) 30 ml PO DAILY PRN PRN Reason: Constipation Last Admin: 11/25/18 15:43 Dose: 30 ml Documented by: Montelukast Sodium (Singulair) 10 mg PO QHS [facility] Last Admin: 11/25/18 22:08 Dose: 10 mg Documented by: Sodium Chloride () 5 - 15 ml IV UD PRN PRN Reason: SALINE FLUSH Last Admin: 11/25/18 05:52 Dose: 10 ml Documented by: Sotalol HCl (Betapace (G)) 120 mg PO BID [facility] Last Admin: 11/26/18 09:16 Dose: 120 mg Documented by: Tamsulosin HCl (Flomax) 0.4 mg PO DAILY [facility] Last Admin: 11/26/18 09:16 Dose: 0.4 mg Documented by: Tramadol HCl (Ultram) 50 mg PO BID [facility] Last Admin: 11/26/18 09:14 Dose: 50 mg Documented by: Medical Necessity - Tobacco Use Smoking Status: Never smoker Tobacco Use: Non-smoker Assessment/Plan All Active Problems (Last Updated 11/23/18 @ 07:18 by Hanna Meraz MD) Hematoma (Acute) 1. Acute cellulitis of the RLE - improved. Continue keflex total 7 days. 2. HTN urgency - resolved. continue current therapy. 3. Hx idiopathic cardiomyopathy - pt of dr. Taylor. Has AICD. 4. Chronic Afib - pacemaker, eliquis. He is on sotalol and coreg. Rate stable. 5. Dmt2 with morbid obesity -stable. Continue home meds at [place]. 6. HLD - atorvastatin 7. COPD - no acute exacerbation. prn aerosols. 8. Depression - wellbutrin 9. DDD - chronic pain, patient of Dr. Matson, recent radiofrequency ablation. DVT ppx: eliquis DC planning: SNF placement for difficulty ambulating. This patient was seen by True Guadalupe PA-C under the supervision of Dr. Ambriz <Kraig Ambriz - Last Filed: 11/26/18 15:43> - Physical Exam Vitals/I&O's: Vital Signs Temp Pulse Resp BP Pulse Ox 98.6 F 72 22 H 142/79 H 96 11/26/18 09:09 11/26/18 10:38 11/26/18 10:38 11/26/18 09:09 11/26/18 09:09 Oxygen Flow Rate (L/min) 3 Oxygen Delivery Method Room Air Weight: 144.242 kg Body Mass Index (BMI) 48.3 Intake and Output for Last 24 Hours 11/24/18 11/25/18 11/26/18 23:59 23:59 23:59 Intake Total 1183.75 / 1183.75 1095.75 / 1095.75 960 / 960 Output Total 1625 / 1625 975 / 975 Balance -441.25 / -441.25 120.75 / 120.75 960 / 960 Laboratory Results 11/25/18 16:52: POC Glucose 148 H 11/25/18 22:04: POC Glucose 120 H 11/26/18 06:58: POC Glucose 114 H 11/26/18 10:55: POC Glucose 167 H Current Medications Albuterol/Ipratropium (Duoneb) 3 ml INHALATION Q4HWA.RT [facility] Last Admin: 11/26/18 15:09 Dose: 3 ml Documented by: Amlodipine Besylate (Norvasc) 5 mg PO DAILY [facility] Last Admin: 11/26/18 09:16 Dose: 5 mg Documented by: Apixaban (Eliquis) 5 mg PO BID [facility] Last Admin: 11/26/18 09:15 Dose: 5 mg Documented by: [facility]rin) [facility] Last Admin: 11/26/18 08:28 Dose: 81 mg Documented by: Atorvastatin Calcium (Lipitor) 20 mg PO QHS [facility] Last Admin: 11/25/18 22:08 Dose: 20 mg Documented by: Budesonide (Pulmicort Aerosol) 0.5 mg INHALATION Q12H.RT [facility] Last Admin: 11/26/18 07:08 Dose: Not Given Documented by: Bupropion HCl (Wellbutrin Xl) 150 mg PO BID [facility] Last Admin: 11/26/18 09:15 Dose: 150 mg Documented by: Carvedilol (Coreg) 12.5 mg PO BID [facility] Last Admin: 11/26/18 09:15 Dose: 12.5 mg Documented by: Celecoxib (Celebrex) 200 mg PO DAILY [facility] Last Admin: 11/26/18 09:15 Dose: 200 mg Documented by: Cephalexin (Keflex) 500 mg PO Q12 [facility] Stop: 11/28/18 22:01 Last Admin: 11/26/18 09:15 Dose: 500 mg Documented by: Dextrose (D50w Syringe) 0 gm IV X1 PRN; Protocol PRN Reason: Hypoglycemia Famotidine (Pepcid) 20 mg PO DAILY [facility] Last Admin: 11/26/18 09:16 Dose: 20 mg Documented by: Furosemide (Lasix) 40 mg PO DAILY [facility] Last Admin: 11/26/18 09:16 Dose: 40 mg Documented by: Gabapentin (Neurontin) 600 mg PO BIDCM [facility] Last Admin: 11/26/18 08:28 Dose: 600 mg Documented by: Glucagon () 1 mg IM .X1 PRN PRN Reason: Hypoglycemia Hydralazine HCl (Apresoline Iv) 5 mg IV Q6H PRN PRN PRN Reason: BLOOD PRESSURE Sodium Chloride () 250 mls @ 15 mls/hr IV .[id number] PRN PRN Reason: Saline Flush Last Infusion: 11/25/18 20:33 Dose: Infused Documented by: Insulin Glargine (Lantus (Bkc)) 21 units SC 1100,2200 [facility] Last Admin: 11/26/18 10:56 Dose: 21 u Documented by: Insulin Human Lispro (Humalog Kwikpen (Bkc)) 0 unit SC ACHS [facility]; Protocol Last Admin: 11/26/18 10:57 Dose: 1 u Documented by: Ipratropium [place] (Atrovent Nasal [place] (G)) 1 spray NASAL Q6H PRN PRN PRN Reason: NASAL CONGESTION Linagliptin (Tradjenta) 5 mg PO DAILYCM [facility] Last Admin: 11/26/18 08:28 Dose: 5 mg Documented by: Magnesium Hydroxide (Milk Of Magnesia) 30 ml PO DAILY PRN PRN Reason: Constipation Last Admin: 11/25/18 15:43 Dose: 30 ml Documented by: Montelukast Sodium (Singulair) 10 mg PO QHS [facility] Last Admin: 11/25/18 22:08 Dose: 10 mg Documented by: Sodium Chloride () 5 - 15 ml IV UD PRN PRN Reason: SALINE FLUSH Last Admin: 11/25/18 05:52 Dose: 10 ml Documented by: Sotalol HCl (Betapace (G)) 120 mg PO BID [facility] Last Admin: 11/26/18 09:16 Dose: 120 mg Documented by: Tamsulosin HCl (Flomax) 0.4 mg PO DAILY [facility] Last Admin: 11/26/18 09:16 Dose: 0.4 mg Documented by: Tramadol HCl (Ultram) 50 mg PO BID [facility] Last Admin: 11/26/18 09:14 Dose: 50 mg Documented by: Assessment/Plan This patient was seen in conjunction with True Guadalupe PA-C . I have independently interviewed and examined the patient and reviewed pertinent historical, laboratory, and other data. Please refer to True Guadalupe PA-C note for details of this patient's presentation, findings, and recommendations. I have reviewed True Guadalupe PA-C note and concur with documented findings. In brief, patient is a 67-year-old male with multiple comorbidities including diabetes, hypertension chronic A. fib who presented with erythema involving the right lower extremity and assessment of cellulitis made admitted to a monitored bed for further management. Patient was also found to have markedly elevated blood pressure on admission Physical Examination: GENERAL: cooperative HEENT: Atraumatic; EYES; Anicteric, NECK; supple, normal thyroid, RESPIRATORY: Diminished to auscultation CARDIOVASCULAR: Regular S1 S2, GI: soft, non-tender, normoactive bowel sounds, : No Renal angle tenderness; NEURO: Awake; no lateralizing signs. PSYCH; Normal affect Assessment: 1. Cellulitis involving the left lower extremity 2. Essential hypertension 3. Idiopathic cardiomyopathy status post AICD placement 4. Morbid obesity with BMI 48 5. Chronic A. fib 6. Conduction system disorder status post pacemaker placement 7. Diabetes mellitus type 2 8. Dyslipidemia 9. Depression 10. COPD 11. Degenerative joint disease with chronic back pain 12. DVT prophylaxis [place] Recommendations: 1. I have discussed the results of my overview and impressions with the patient 2. Options for management were reviewed Advance planning; did discuss with the patient regarding advanced directives as well as CODE STATUS. Did explain the various scenarios involved ( FULL CODE, DNR CCA, DNR CCA with no intubation, and DNR CC and what each meant) patient elected to remain full code with intubation and CPR if needed. Order was placed. Time spent on discussion 20 minutes. Code Visit Inpatient E&M: 99753 Subs Hosp L2 Procedures: 95384 Advncd Care Plan 30 Min
--- NOTE | 2018-11-26 15:52 | CASEMGMT ---
HOMER spoke with patient letting him know we are still waiting on insurance. He said Fernanda from [facility] said he was approved Monday. HOMER explained to him that SW is not sure where she is getting her information, bur the care home spoke with the nurse reviewer reviewing his case. She said she has not approved him for care home and she wanted PT notes from today. Awaiting PT notes to give to insurance Nesha JIMENES MSW
[2018-11-26 17:00] LABS: Bedside Glucose 134 mg/dL (70-110)
[2018-11-26] MEDS: Budesonide Respules 0.5 MG/2 ML AMPUL.NEB. INHALATION (20:00)
[2018-11-26 20:51] LABS: Bedside Glucose 122 mg/dL (70-110)
[2018-11-26] MEDS: Montelukast 10 MG Tablet PO (21:41)
[2018-11-26] MEDS: Atorvastatin Calcium 20 MG Tablet PO (21:42)
[2018-11-27 02:04] VITALS: PULSE 69
[2018-11-27 03:15] VITALS: BP 115/58; PULSE 70; RESP 18; TEMP 36.6; O2SAT 97
[2018-11-27 06:45] LABS: Bedside Glucose 125 mg/dL (70-110)
[2018-11-27 07:17] VITALS: PULSE 69; RESP 20; O2SAT 94
[2018-11-27] MEDS: Ipratropium/Albuterol Sulfate 3 ML AMPUL.NEB INHALATION ×2 (07:17→10:27)
[2018-11-27] MEDS: Budesonide Respules 0.5 MG/2 ML AMPUL.NEB. INHALATION (07:17)
[2018-11-27 07:36] VITALS: PULSE 70
[2018-11-27] MEDS: Aspirin E.C. 81 MG Tablet PO (08:13)
[2018-11-27] MEDS: Gabapentin 600 MG Tablet PO (08:13)
[2018-11-27] MEDS: LINAGLIPTIN 5 MG TABLET PO (08:14)
--- NOTE | 2018-11-27 08:42 | CASEMGMT ---
HOMER faxed PT/OT notes from Monday to [facility] per insurance request. Await pre-cert. Nesha JIMENES MSW
[2018-11-27 09:15] VITALS: BP 105/79; PULSE 71; RESP 18; TEMP 36.5; O2SAT 95
--- NOTE | 2018-11-27 09:21 | CASEMGMT ---
HOMER spoke with OT and she said patient got up and walked around the room. She said he is fine going home and he is fine with going home. HOMER met with patient. Patient said he did walk today. He feels fine going home. He declined home health. HOMER asked if he wanted SW to call his and he said he would call her. HOMER notified PA regarding this update. Plan: Home with Nesha Padronmikael JIMENES MSW
[2018-11-27] MEDS: APIXABAN 5 MG TABLET PO (10:16)
[2018-11-27] MEDS: Carvedilol 12.5 MG Tablet PO (10:17)
[2018-11-27] MEDS: Tamsulosin HCl 0.4 MG Capsule PO (10:18)
[2018-11-27] MEDS: Cephalexin 500 MG Capsule PO (10:19)
[2018-11-27] MEDS: Celecoxib 200 MG Capsule PO (10:19)
[2018-11-27] MEDS: amLODIPine 5 MG Tablet PO (10:20)
[2018-11-27] MEDS: Famotidine 20 MG Tablet PO (10:20)
[2018-11-27] MEDS: Furosemide 40 MG Tablet PO (10:20)
[2018-11-27] MEDS: buPROPion (XL) 150 MG TABLET.XL PO (10:21)
[2018-11-27] MEDS: traMADol 50 MG Tablet PO (10:24)
[2018-11-27 10:27] VITALS: PULSE 72; RESP 20
--- NOTE | 2018-11-27 11:10 | CASEMGMT ---
HOMER did check back with patient and his is fine with him coming home. HOMER called [facility] and left Mely a vm letting her know patient is now going home. HOMER also faxed PAS/RR to [facility] canceling it and letting them know patient is now going home. HOMER also called Fernanda at [facility] and let her know patient is going home today and not to a fpc. Plan: Home with . Nesha JIMENES MSW
--- NOTE | 2018-11-27 11:23 | PCM.DC ---
- Discharge Diagnoses Current Active Problems: Current Active and Chronic Problems (Last Updated 11/23/18 @ 07:18 by Hanna Meraz MD) DDD (degenerative disc disease) (Chronic) Hematoma (Acute) You will use the following diet at home:: Calorie/Carbohydrate Controlled (specify 1200, 1400, etc) - 1800 lennox / day, Cardiac Your food should be the consistency of: Regular Your liquids should be the consistency of: Regular/Thin Discharge Activity: Return to Normal Activity Allergies/Adverse Reactions: Allergies moxifloxacin HCl [From Avelox] Allergy (Verified 11/22/18 16:23) Hives Medications to take at Discharge Sitagliptin Phos/Metformin HCl [Janumet 50-500 mg Tablet] 1 ea PO DAILY 06/05/14 Montelukast [Singulair] 10 mg PO DAILY 05/15/15 buPROPion XL [Wellbutrin Xl] 150 mg PO BID 05/15/15 Multivitamins,Ther W-Minerals [Multivitamin With Minerals] 1 tab PO DAILY 06/04/15 atorvastatin 20 mg tablet 20 mg PO DAILY 01/26/17 aspirin 81 mg tablet,delayed release 81 mg PO DAILY 03/06/17 tamsulosin 0.4 mg capsule 0.4 mg PO DAILY 05/29/17 amlodipine 5 mg tablet 5 mg PO DAILY 09/14/17 tramadol 50 mg tablet 50 mg PO BID tab 03/01/18 Insulin Detemir [Levemir FlexPen] 21 units SQ BID 10/04/18 apixaban 5 mg tablet 5 mg PO BID tab 10/12/18 famotidine 20 mg tablet 20 mg PO BID 10/12/18 Gabapentin [Neurontin] 600 mg PO BIDCM 11/12/18 sotalol 120 mg tablet 120 mg PO BID #180 tab 11/15/18 Carvedilol 12.5 mg PO BID 11/22/18 Celecoxib [Celebrex] 200 mg PO DAILY 11/22/18 Cyanocobalamin (Vitamin B-12) [Vitamin B-12] 1,000 mcg PO DAILY 11/22/18 Fluticasone Furoate [Arnuity Ellipta] 1 puff INHALATION PRN PRN 11/22/18 Ipratropium [place] 1 - 2 spray NS Q6H PRN 11/22/18 Turmeric/Turmeric Root Extract [Turmeric 500 mg Capsule] 1 ea PO BID 11/22/18 Furosemide [Lasix] 40 mg PO 11/23/18 Cephalexin [Keflex] 500 mg PO Q12 #3 cap 11/27/18 The following prescriptions were given: Cephalexin [Keflex] 500 mg PO Q12 #3 cap Transmission Status: Pending to [facility] Primary Care Physician: Adithya Weaver MD [Primary Care Provider] - Please follow up with your Primary Care Physician in: 1-2 weeks Test Results: Test results from this visit will be discussed in further detail at your follow-up appointment, if applicable. Proposed Discharge Date: 11/27/18
[2018-11-27] MEDS: Insulin Lispro 100 UNIT/ML INSULN.PEN SC (11:55)
[2018-11-27 12:10] LABS: Bedside Glucose 161 mg/dL (70-110)
--- NOTE | 2018-11-27 12:49 | PHA.DC.MC ---
Pharmacy Service has performed discharge medication reconciliation and counseling for this patient. 1. CEPHALEXIN 500MG PO BID X 3 DOSES The patient's discharge medication list was reviewed for discrepancies and discrepancies were resolved. Home Medications Sitagliptin Phos/Metformin HCl [Janumet 50-500 mg Tablet] 1 ea PO DAILY 06/05/14 Montelukast [Singulair] 10 mg PO DAILY 05/15/15 buPROPion XL [Wellbutrin Xl] 150 mg PO BID 05/15/15 Multivitamins,Ther W-Minerals [Multivitamin With Minerals] 1 tab PO DAILY 06/04/15 atorvastatin 20 mg tablet 20 mg PO DAILY 01/26/17 aspirin 81 mg tablet,delayed release 81 mg PO DAILY 03/06/17 tamsulosin 0.4 mg capsule 0.4 mg PO DAILY 05/29/17 amlodipine 5 mg tablet 5 mg PO DAILY 09/14/17 tramadol 50 mg tablet 50 mg PO BID tab 03/01/18 Insulin Detemir [Levemir FlexPen] 21 units SQ BID 10/04/18 apixaban 5 mg tablet 5 mg PO BID tab 10/12/18 famotidine 20 mg tablet 20 mg PO BID 10/12/18 Gabapentin [Neurontin] 600 mg PO BIDCM 11/12/18 sotalol 120 mg tablet 120 mg PO BID #180 tab 11/15/18 Carvedilol 12.5 mg PO BID 11/22/18 Celecoxib [Celebrex] 200 mg PO DAILY 11/22/18 Cyanocobalamin (Vitamin B-12) [Vitamin B-12] 1,000 mcg PO DAILY 11/22/18 Fluticasone Furoate [Arnuity Ellipta] 1 puff INHALATION PRN PRN 11/22/18 Ipratropium [place] 1 - 2 spray NS Q6H PRN 11/22/18 Turmeric/Turmeric Root Extract [Turmeric 500 mg Capsule] 1 ea PO BID 11/22/18 Furosemide [Lasix] 40 mg PO 11/23/18 Cephalexin [Keflex] 500 mg PO Q12 #3 cap 11/27/18 The patient was counseled on the following discharge medications and changes in medications for homegoing were reviewed. The Reason for Use, instructions for use, and potential side effects were reviewed for all new medications. The patient's questions regarding all of their medications were answered. The patient was able to verbally demonstrate an understanding of their discharge medications.
--- NOTE | 2018-11-27 14:35 | DS.PCM_ITS ---
<True Guadalupe - Last Filed: 11/27/18 14:35> Discharge Date and Diagnosis Date of Admission: 11/22/18 Date of Discharge: 11/27/18 - Primary Discharge Diagnosis Acute right lower extremity cellulitis Hypertensive urgency History of idiopathic cardiomyopathy, AICD in place, pacemaker in place Chronic atrial fibrillation Type 2 diabetes mellitus with morbid obesity Hyperlipidemia COPD Depression Degenerative disc disease - Secondary Discharge Diagnosis Chronic Problems (Last Updated 11/23/18 @ 07:18 by Hanna Meraz MD) Degeneration of intervertebral disc of lumbosacral region (Chronic) Spondylosis of lumbosacral region without myelopathy or radiculopathy (Chronic) DDD (degenerative disc disease) (Chronic) Hyperlipidemia (Chronic) Atherosclerosis of coronary artery of nez perce heart without angina pectoris (Chronic) Stage 2 moderate COPD by GOLD classification (Chronic) Asthma (Chronic) ARMANDO (obstructive sleep apnea) (Chronic) 22/12 cm of water, backup rate of 16 Diabetes type 2, controlled (Chronic) Cardiomyopathy, idiopathic (Chronic) Presence of biventricular implantable cardioverter-defibrillator (ICD) (Chronic) HTN (hypertension), benign (Chronic) Persistent atrial fibrillation (Chronic) Hospital Course and Treatment Imaging Results: CT/Brain/Head without Contrast IMPRESSION: No acute intracranial abnormality. RAD/Foot min 3 Views IMPRESSION: No fracture or dislocation. Soft tissue swelling. RAD/Chest 1 View (Portable) IMPRESSION: Mild edema and small left base infiltrate with effusion. Mild cardiomegaly. Operations: None Procedures: None Summary of Care Provided: Hospital course: The patient is a 67 year old M with past medical history of type 2 diabetes, idiopathic cardiomyopathy with an AICD in place, chronic A. fib with a pacemaker in place, hypertension, hyperlipidemia, COPD, depression, degenerative disc disease, who presented to the emergency room with complaints of right lower extremity swelling, bruising, redness. This is been going since the Monday leading up to admission. Initially his bruising started after he fell tripping over a trash bag at his house. He is on Eliquis and had extensive bruising. He had an outpatient x-ray of the ankle and tib-fib which were negative. He was seen by his PCP the day prior to presentation to the ER and was started on oral doxycycline for suspected cellulitis. Unfortunately after that he experienced worsening of the pain in his foot which made it impossible to walk. He had to crawl across his house as he could not weight-bear at all. He was brought to the emergency room and was found to have significant bruising of his right lower extremity with evidence of cellulitic changes, markedly elevated blood pressure at 180/110, and leukocytosis. X-ray of the foot was negative. He was admitted to the PCU with acute cellulitis of the right lower extremity and hypertensive urgency. He was treated with his home meds with the addition of PRN hydralazine for his blood pressure, he was treated with IV cefazolin for his right lower extremity cellulitis. The patient responded well to the antibiotics. With improvement of the pain in his right lower extremity his blood pressure stabilized and did not require therapy in addition to his home medications. Eliquis was continued and the bruising gradually improved. With ongoing issues with walking the patient was felt necessary for [facility] a [facility], however by the time of discharge she had not improved and had no issues walking. He declined home health services, but was interested in outpatient physical therapy as he had ongoing unsteady gait and some residual weakness. He was discharged home in stable condition and will complete a total of 7 days of oral antibiotics. He would also benefit from weight loss, we did have the dietitian meet with him concerning his obesity however he was dismissive to her of nutrition education. He will need to follow-up with his PCP in 1 to 2 weeks, and he should continue to pursue physical therapy as an outpatient. This patient was seen by True Guadalupe PA-C under the supervision of Doctor Ambriz. [] - Physical Exam Vitals/I&O's: Vital Signs Temp Pulse Resp BP Pulse Ox 97.7 F L 72 20 H 105/79 95 11/27/18 09:15 11/27/18 10:27 11/27/18 10:27 11/27/18 09:15 11/27/18 09:15 Oxygen Flow Rate (L/min) 3 Oxygen Delivery Method Room Air Weight: 317 lb 15.987 oz Body Mass Index (BMI) 48.3 Intake and Output for Last 24 Hours 11/25/18 11/26/18 11/27/18 23:59 23:59 23:59 Intake Total 1095.75 / 1095.75 1500 / 1500 300 / 300 Output Total 975 / 975 600 / 1000 800 / 800 Balance 120.75 / 120.75 900 / 500 -500 / -500 General: Alert, Oriented x3, Cooperative HEENT: Atraumatic, PERRLA, EOMI, Normocephalic Neck: Supple, No JVD, Negative Carotid Bruits Lungs: Clear to auscultation, Normal air movement Cardiovascular: Regular rate, No murmurs Abdomen: Bowel Sounds Present, Soft, Non Tender, Obese Extremities: No edema, Capillary Refill Less than 3 Seconds Skin: No rashes, No breakdown, - - bruising RLE clearing over the dorsum of the right foot. Warmth improved. No open areas or drainage. No lymphangitis. Musculoskeletal: No Tenderness to Palpation of Joints or Extremities Neurological: Cranial nerves II-XII grossly intact Psych/Mental Status: Normal Affect, Appropriate, Alert and oriented to time, place, person, mood and affect Laboratory Results 11/26/18 16:39: POC Glucose 134 H 11/26/18 20:37: POC Glucose 122 H 11/27/18 06:39: POC Glucose 125 H 11/27/18 11:52: POC Glucose 161 H Discharge Diet: Low fat/ Low Cholesterol, 1800 Calorie Control Diet, 2000 mg Sodium Diet Discharge Activity: Return to Normal Activity Home Medications: Medications to take at Discharge Sitagliptin Phos/Metformin HCl [Janumet 50-500 mg Tablet] 1 ea PO DAILY 06/05/14 Montelukast [Singulair] 10 mg PO DAILY 05/15/15 buPROPion XL [Wellbutrin Xl] 150 mg PO BID 05/15/15 Multivitamins,Ther W-Minerals [Multivitamin With Minerals] 1 tab PO DAILY 06/04/15 atorvastatin 20 mg tablet 20 mg PO DAILY 01/26/17 aspirin 81 mg tablet,delayed release 81 mg PO DAILY 03/06/17 tamsulosin 0.4 mg capsule 0.4 mg PO DAILY 05/29/17 amlodipine 5 mg tablet 5 mg PO DAILY 09/14/17 tramadol 50 mg tablet 50 mg PO BID tab 03/01/18 Insulin Detemir [Levemir FlexPen] 21 units SQ BID 10/04/18 apixaban 5 mg tablet 5 mg PO BID tab 10/12/18 famotidine 20 mg tablet 20 mg PO BID 10/12/18 Gabapentin [Neurontin] 600 mg PO BIDCM 11/12/18 sotalol 120 mg tablet 120 mg PO BID #180 tab 11/15/18 Carvedilol 12.5 mg PO BID 11/22/18 Celecoxib [Celebrex] 200 mg PO DAILY 11/22/18 Cyanocobalamin (Vitamin B-12) [Vitamin B-12] 1,000 mcg PO DAILY 11/22/18 Fluticasone Furoate [Arnuity Ellipta] 1 puff INHALATION PRN PRN 11/22/18 Ipratropium [place] 1 - 2 spray NS Q6H PRN 11/22/18 Turmeric/Turmeric Root Extract [Turmeric 500 mg Capsule] 1 ea PO BID 11/22/18 Furosemide [Lasix] 40 mg PO 11/23/18 Cephalexin [Keflex] 500 mg PO Q12 #3 cap 11/27/18 Following Prescrptions Were Given to Patient: Cephalexin [Keflex] 500 mg PO Q12 #3 cap Transmission Status: Received by [facility] Primary Care Physician: Adithya Weaver MD [Primary Care Provider] - Please follow up with your Primary Care Physician in: 1-2 weeks Disposition: Home Minutes spent on discharge:: 35 Patient Condition:: Stable Medical Necessity - Tobacco Use Smoking Status: Never smoker Tobacco Use: Non-smoker Meaningful Use Info Meaningful Use Diagnoses (Choose all that apply): None applicable <Kraig Ambriz - Last Filed: 11/27/18 15:04> Discharge Date and Diagnosis - Secondary Discharge Diagnosis Chronic Problems (Last Updated 11/23/18 @ 07:18 by Hanna Meraz MD) Degeneration of intervertebral disc of lumbosacral region (Chronic) Spondylosis of lumbosacral region without myelopathy or radiculopathy (Chronic) DDD (degenerative disc disease) (Chronic) Hyperlipidemia (Chronic) Atherosclerosis of coronary artery of nez perce heart without angina pectoris (Chronic) Stage 2 moderate COPD by GOLD classification (Chronic) Asthma (Chronic) ARMANDO (obstructive sleep apnea) (Chronic) 22/12 cm of water, backup rate of 16 Diabetes type 2, controlled (Chronic) Cardiomyopathy, idiopathic (Chronic) Presence of biventricular implantable cardioverter-defibrillator (ICD) (Chronic) HTN (hypertension), benign (Chronic) Persistent atrial fibrillation (Chronic) Hospital Course and Treatment Summary of Care Provided: This patient was seen in conjunction with True Guadalupe PA-C . I have independently interviewed and examined the patient and reviewed pertinent historical, laboratory, and other data. Please refer to True Guadalupe PA-C note for details of this patient's presentation, findings, and recommendations. I have reviewed True Guadalupe PA-C note and concur with documented findings. In brief, patient is a 67-year-old male with multiple comorbidities including diabetes, hypertension chronic A. fib who presented with erythema involving the right lower extremity and assessment of cellulitis made admitted to a monitored bed for further management. Patient was also found to have markedly elevated blood pressure on admission Assessment: 1. Cellulitis involving the left lower extremity 2. Essential hypertension 3. Idiopathic cardiomyopathy status post AICD placement 4. Morbid obesity with BMI 48 5. Chronic A. fib 6. Conduction system disorder status post pacemaker placement 7. Diabetes mellitus type 2 8. Dyslipidemia 9. Depression 10. COPD 11. Degenerative joint disease with chronic back pain 12. DVT prophylaxis [facility] Hospital course: As documented above - Physical Exam Vitals/I&O's: Vital Signs Temp Pulse Resp BP Pulse Ox 97.7 F L 72 20 H 105/79 95 11/27/18 09:15 11/27/18 10:27 11/27/18 10:27 11/27/18 09:15 11/27/18 09:15 Oxygen Flow Rate (L/min) 3 Oxygen Delivery Method Room Air Weight: 144.242 kg Body Mass Index (BMI) 48.3 Intake and Output for Last 24 Hours 11/25/18 11/26/18 11/27/18 23:59 23:59 23:59 Intake Total 1095.75 / 1095.75 1500 / 1500 300 / 300 Output Total 975 / 975 600 / 1000 800 / 800 Balance 120.75 / 120.75 900 / 500 -500 / -500 Laboratory Results 11/26/18 16:39: POC Glucose 134 H 11/26/18 20:37: POC Glucose 122 H 11/27/18 06:39: POC Glucose 125 H 11/27/18 11:52: POC Glucose 161 H Code Visit Inpatient E&M: 13050 Disch Hosp
== END 2018-11-27 11:24 | disposition home or self-care (01) ==
LOC: ED 17:48 → MS3 18:03 → PCU 18:35
PROVIDERS: Hospitalist; Admitting Provider Internal Medicine; Emergency Provider Emergency Medicine; Family Provider Family Medicine; PCP Family Medicine; Referring Provider Internal Medicine; Visit Provider Internal Medicine
DX: L03.115 Cellulitis of right lower limb (principal); I16.0 Hypertensive urgency; E66.01 Morbid (severe) obesity due to excess calories; J44.9 Chronic obstructive pulmonary disease, unspecified; E78.5 Hyperlipidemia, unspecified; M47.817 Spondylosis without myelopathy or radiculopathy, lumbosacral region; G47.33 Obstructive sleep apnea (adult) (pediatric); S80.11XA Contusion of right lower leg, initial encounter; G89.29 Other chronic pain; W01.0XXA Fall on same level from slipping, tripping and stumbling without subsequent striking against object, initial encounter; I13.0 Hypertensive heart and chronic kidney disease with heart failure and stage 1 through stage 4 chronic kidney disease, or unspecified chronic kidney disease; Y93.9 Activity, unspecified; N18.3 Chronic kidney disease, stage 3 (moderate); E11.22 Type 2 diabetes mellitus with diabetic chronic kidney disease; I50.22 Chronic systolic (congestive) heart failure; Y92.9 Unspecified place or not applicable; I42.0 Dilated cardiomyopathy; I48.20 Chronic atrial fibrillation, unspecified; M19.90 Unspecified osteoarthritis, unspecified site; Z95.810 Presence of automatic (implantable) cardiac defibrillator; Z68.42 Body mass index [BMI] 45.0-49.9, adult; Z71.3 Dietary counseling and surveillance; Z79.4 Long term (current) use of insulin; Z79.899 Other long term (current) drug therapy; Z79.82 Long term (current) use of aspirin; F32.9 Major depressive disorder, single episode, unspecified
CPT/HCPCS: 36415; 70450; 71045; 73630; 80053; 82248; 82962; 83880; 84439; 84443; 84484; 85025; 85610; 85730; 93005; 94640; 96365; 96366; 96375; 97110; 97140; 97162; 97166; 97530; 97802; 99218; 99285; J7040; J7050; A4216; G0378; J2405

== ENCOUNTER 2018-12-20 09:51 | Day surgery (SDC) | payer MEDICARE, SELFPAY ==
[2018-12-06 14:18] VITALS: BMI 48.9
--- NOTE | 2018-12-06 15:10 | RAD_ITS ---
STUDY: X-RAY CHEST REASON FOR EXAM: Male, 67 years old. Pacemaker battery change. TECHNIQUE: PA and lateral views of the chest. COMPARISON: Comparison is made with prior study dated November 22, 2018. FINDINGS: Hyperinflation. Since prior study, there has been improved aeration of the lingular segment of the left upper lobe. Mild residual changes persist with blunting of the left costophrenic angle. There is borderline cardiomegaly. A left-sided dual-chamber pacemaker is present. Normal mediastinum and fernando. Normal visualized pulmonary arteries. There is atherosclerotic calcification of the aortic arch with tortuosity. There are diffuse degenerative changes of the visualized thoracic spine. Normal visualized ribs, clavicles, and shoulders. There is no demonstrated abnormality of the visualized soft tissue structures of the upper abdomen. RAD/Chest PA and Lateral IMPRESSION: Computer duration of the lingular segment of the left upper lobe with mild residual changes. Electronically Signed: Chandler Ruffin, at 13:16 EDT , Service support ,
[2018-12-06 16:26] LABS: Bacteria 0 SEEN /hpf (None Seen); Mucous, Urine 0 SEEN /hpf (<or=2+); Red Blood Cells-Urine 0 SEEN /hpf (0-5); Squamous Epithelial Cells - UA 0 SEEN /hpf (0-5)
[2018-12-06 16:27] LABS: Hematocrit 44.1 % (40-54); Hemoglobin 14.3 g/dL (13.0-16.5); Mean Corp Hgb Conc 32.4 g/dL (32-36); Mean Corpuscular Hgb 27.9 pg (27.0-32.0); Mean Corpuscular Volume 86.1 fL (80-94); Red Blood Count 5.12 M/mm3 (4.6-6.2); White Blood Count 10.3 K/mm3 (4.4-11.0)
[2018-12-06 16:28] LABS: International Normalized Ratio 1.2; Mean Platelet Vol. 9.9 fl (6.2-12.0); Platelet Count 239 K/mm3 (150-450); Prothrombin Time (Protime)PT. 14.6 SECONDS (11.7-14.9); RBC Distribution Width CV 15.8 % (11.6-14.6); RBC Distribution Width SD 48.4 fl (35.1-43.9); Scan Indicated on CBC? Y/N NO
[2018-12-06 16:29] LABS: Color, Urine Yellow (Yellow); Glucose, Dipstick Normal (Normal); Ketone-Dipstick 5 mg/dl (Negative); Urine Bilirubin Dipstick Negative (Negative); Urine Clarity Clear (Clear)
[2018-12-06 16:30] LABS: Leukocyte Esterase-Dipstick 25 /ul (Negative); Nitrite-Dipstick Negative (Negative); Occult Blood-Urine Negative /ul (Negative); Protein-Dipstick 30 mg/dl (Negative); Urine Urobilinogen Normal (Normal)
[2018-12-06 16:31] LABS: White Blood Cells 0-5 SEEN /hpf (0-5)
[2018-12-06 16:34] LABS: Anion Gap 10 (5-15); BUN 14 mg/dL (7-18); BUN/Creat Ratio 10.8 RATIO (10-20); Calcium,Total 8.5 mg/dL (8.5-10.1); Chloride 105 mmol/L (98-107); EST Glomerular Filtration Rate 58 mL/min (>60); Est Glom Filt Rate - Afr Amer 71 mL/min (>60); Glucose 85 mg/dL (74-106); Sodium Level 140 mmol/L (136-145)
[2018-12-19 10:41] VITALS: BMI 48.9
--- NOTE | 2018-12-20 09:53 | PCM.HP.BLA ---
History and Physical Date of Admission: 12/20/18 Mr. Grubbs is a 67-year-old white male accompanied by his who returns for a followup cardiovascular visit. He is a gentleman with a history of dilated idiopathic cardiomyopathy with a BiV AICD in 2011, atrial fibrillation s/p cardioversion failure, hypertension, COPD and ARMANDO with Bipap therapy. He also has a history of diabetes. He had a follow-up appointment in October with Dr. Shai Zayas at the [facility] s/p sotalol therapy and DC cardioversion. Dr. Zayas did report the patient had no side effects to the sotalol and had not had any episodes of atrial fibrillation. They also did discuss potential bariatric surgery to assist with weight loss and prevention of atrial fibrillation. He reports he is doing much better. His breathing has been better and he has completed pulmonary rehabilitation. Mr. Grubbs denies any chest discomfort, shortness of breath at rest, dizziness, diaphoresis, or near syncope/syncope. . He does have occasional shortness of breath with exertion, but this has been greatly improved. He has baseline trace to 1+ bilateral lower extremity edema, which does not appear to be worsening. His defibrillator was interrogated at [facility] in October 2017. He reports everything was fine. He has an appointment for interrogation in February here at the office. His last cardioversion took place in July 2015 at [facility], and his last stress test took place in April 2004. Since being on sotalol he had not had a stress test. His previous stress test was 08/02/16 at [facility] which was a non-walking nuclear stress test which was reported to be negative for ischemia. A more recent non-walking Lexiscan/MPI took place at [place] on 11/22/2017 which was nondiagnostic due to the patient's paced rhythm. Patient reports that he is in the process of being evaluated for bariatric surgery at [facility] in the next several months. He denies chest, arm, jaw, or neck discomfort. His exercise tolerance is stable. He denies symptoms of CHF, palpitations, lightheadedness, dizziness, near syncope, or syncopal episodes. He denies edema or claudication issues. He denies orthopnea, PND, fever, chills, blood in urine, blood in stool, myalgia, or unexplainable fatigue. Patient was recently admitted on 11/22/2018 for right leg weakness and pain and was found to have cellulitis and was admitted for IV antibiotic therapy. Patient had cellulitis in his right leg, but this is essentially resolved. He is here for preoperative history and physical for upcoming generator change by Dr. Zayas on 12/20/2018. His antibiotics have been completed, and his right anterior fernandez cellulitis has almost completely resolved as far as its erythema. It no longer looks infected. He has no tenderness, fevers, chills, or worsening erythema. In our office today's blood pressure is 100/60, pulse of 76 and regular. Physical exam is as below. His lipids as of 03/23/2018 showed an LDL of 40 and HDL of 23. Will recent EKG dated 11/22/2018 shows normal sinus rhythm with paced ventricular response and a left bundle pattern. PVCs noted. Intake VS: see chart Allergies moxifloxacin HCl [From Avelox] Allergy (Verified 11/28/18 10:55) Hives Medications Sitagliptin Phos/Metformin HCl [Janumet 50-500 mg Tablet] 1 ea PO DAILY 06/05/14 [History Confirmed 11/28/18] Montelukast [Singulair] 10 mg PO DAILY 05/15/15 [History Confirmed 11/28/18] buPROPion XL [Wellbutrin Xl] 150 mg PO BID 05/15/15 [History Confirmed 11/28/18] Multivitamins,Ther W-Minerals [Multivitamin With Minerals] 1 tab PO DAILY 06/04/15 [History Confirmed 11/28/18] atorvastatin 20 mg tablet 20 mg PO DAILY 01/26/17 [History Confirmed 11/28/18] aspirin 81 mg tablet,delayed release 81 mg PO DAILY 03/06/17 [History Confirmed 11/28/18] tamsulosin 0.4 mg capsule 0.4 mg PO DAILY 05/29/17 [History Confirmed 11/28/18] amlodipine 5 mg tablet 5 mg PO DAILY 09/14/17 [History Confirmed 11/28/18] tramadol 50 mg tablet 50 mg PO BID tab 03/01/18 [History Confirmed 11/28/18] Insulin Detemir [Levemir FlexPen] 21 units SQ BID 10/04/18 [History Confirmed 11/28/18] apixaban 5 mg tablet 5 mg PO BID tab 10/12/18 [History Confirmed 11/28/18] famotidine 20 mg tablet 20 mg PO BID 10/12/18 [History Confirmed 11/28/18] Gabapentin [Neurontin] 600 mg PO BIDCM 11/12/18 [History Confirmed 11/28/18] sotalol 120 mg tablet 120 mg PO BID #180 tab 11/15/18 [Rx Confirmed 11/28/18] Carvedilol 12.5 mg PO BID 11/22/18 [History Confirmed 11/28/18] Celecoxib [Celebrex] 200 mg PO DAILY 11/22/18 [History Confirmed 11/28/18] Cyanocobalamin (Vitamin B-12) [Vitamin B-12] 1,000 mcg PO DAILY 11/22/18 [History Confirmed 11/28/18] Fluticasone Furoate [Arnuity Ellipta] 1 puff INHALATION PRN PRN 11/22/18 [History Confirmed 11/28/18] Ipratropium [place] 1 - 2 spray NS Q6H PRN 11/22/18 [History Confirmed 11/28/18] Turmeric/Turmeric Root Extract [Turmeric 500 mg Capsule] 1 ea PO BID 11/22/18 [History Confirmed 11/28/18] Furosemide [Lasix] 40 mg PO 11/23/18 [History Confirmed 11/28/18] Cephalexin [Keflex] 500 mg PO Q12 #3 cap 11/27/18 [Rx Confirmed 11/28/18] PFSH Medical History Hyperlipidemia (Chronic) Atherosclerosis of coronary artery of zuni heart without angina pectoris (Chronic) Stage 2 moderate COPD by GOLD classification (Chronic) Asthma (Chronic) ARMANDO (obstructive sleep apnea) (Chronic) Diabetes type 2, controlled (Chronic) Cardiomyopathy, idiopathic (Chronic) HTN (hypertension), benign (Chronic) Persistent atrial fibrillation (Chronic) History of nephrolithiasis (Chronic) Osteoarthritis (Chronic) Vitamin D deficiency (Chronic) Surgical History Presence of biventricular implantable cardioverter-defibrillator (ICD) (Chronic) H/O oral surgery (Chronic) History of lithotripsy (Chronic) Hx of cholecystectomy (Resolved 11/22/17) Family History Father Cancer Lung CA Mother Cancer Sister Myocardial infarction Diabetes Heart disease Uncle CAD (coronary artery disease) Social History (Updated 12/06/18 @ 14:46 by Mynor Taylor MD) Smoking Status: Never smoker alcohol intake: never substance use type: does not use caffeine: No what type of physical activity do you participate in: none seatbelt use: always do you feel safe at home: Yes ROS Const Const: Positive for other (Was in [facility] for R leg cellulitis: better now. For gen change 12/20/18); negative for fatigue, weakness, body ache, fever(s), headache(s), chills, frequent falls, night sweats, daytime sleepiness, difficulty sleeping, excessive sweating, weight gain, weight loss, increased appetite, poor appetite or anorexia Eyes Eyes: Negative for blind spots, loss of peripheral vision, transient loss of vision, blurry vision, change in vision, double vision, floaters, tunnel vision or other ENT ENT: Negative for headache(s), dizziness, hearing loss, tinnitus, Nosebleed/epistaxis, balance problems, post nasal drip, lip swelling, tongue swelling, bleeding gums, hoarseness, neck pain, dry mouth or other Cardio Chest Pain: No Palpitations: No Edema: Bilateral (Right leg remains purple-dark red but it is not nearly as swollen) Muscle aches with walking: None Resp Respiratory: Positive for SOB with activity, Cough (dry cough) and other (has CPAP but it is not working right now.); negative for SOB at rest, SOB orthopnea\SOB lying down, Coughing up blood/hemoptysis, chest congestion, pain on inspiration, snoring, stridor, wheezing, crackles or paroxysmal nocturnal dyspnea GI GI: Negative nausea, vomiting, heartburn, constipation, belching, bloating, cramping, vomiting blood/hematemesis, bright, red blood in stools, black,tarry stools, loose stools, Difficulty Swallowing or other : Negative for hematuria, frequent nighttime urination/ nocturia, erectile dysfunction or abnormal vaginal bleeding Musc Musc: Negative for muscle aches/ myalgia, muscle weakness, joint pain or balance problems Skin Skin: Negative redness, non-healing lesions, rash, unusual bruising, skin ulcer, wounds, jaundice or other Neuro Neuro: Negative for dizziness, lightheadedness, near syncope, syncope, orthostatic symptoms, frequent falls, headache(s), weakness, confusion, memory loss, restless legs, blurry vision, double vision, vertigo, seizures, lack of coordination or other Cristian Hematologic/Lymphatic: Negative for easy bleeding, easy bruising, enlarged lymph nodes or other Endo Endo: Negative for fatigue, cold intolerance, heat intolerance, excessive sweating, flushing, increased thirst/drinking, increased hunger, hair loss, hair growth or other Psych Psych: Negative for anxiety, depression, thoughts of harming anyone, thoughts of harming yourself, visual hallucinations, panic attacks or audible hallucinations Allergy Allergy/Immunology: Negative for throat swelling, Negative for tongue swelling, Negative for hives, Negative for rash, Negative for lip swelling Cardiology Exam Const Appearance: cooperative, healthy appearing and no acute distress Nutritional Appearance: well nourished Orientation: alert, oriented x3 and oriented to person Head Head: normal to inspection, normocephalic and atraumatic Nose: external nose normal Face and Sinus: face symmetric Mouth: oral mucosae normal Eyes General: appearance normal, both eyes and all related structures Eyelids: eyelids normal Conjunctivae: conjunctivae normal Pupils: PERRL and normal by confrontation EOM: EOM intact bilaterally Neck Neck: normal visual inspection and full ROM Carotids: normal carotid upstroke Chest Chest inspection: normal inspection of the chest Auscultation: Bilateral: Clear to Auscultation Cardio Palpation: normal PMI Rate: regular rate Rhythm: regular rhythm Heart sounds: S1 normal and S2 normal GI GI: normal to inspection, no hepatosplenomegaly and bowel sounds present Neuro General: alert, awake, oriented x3, CN's II-XI intact bilaterally and moves all extremities Skin Skin: no rashes or lesions noted Extremities Pulses: Normal: Right Femoral Pulse, Left Femoral Pulse, Right Dorsalis Pedis Pulse, Left Dorsalis Pedis Pulse, Right Posterior Tibial Pulse, Left Posterior Tibial Pulse, Right Radial Pulse, Left Radial Pulse Lower Extremity Edema: None: Bilateral Psych Psychological: normal affect Assessment & Plan 1. Atherosclerosis of zuni coronary artery of zuni heart without angina pectoris I25.10 Stable, from a cardiac standpoint patient does not have any symptoms of angina. We recommend that they continue with current aggressive medical management and risk factor modification. 2. Pure hypercholesterolemia E78.5 Recommend continuing his current dose of Lipitor. 3. Cardiomyopathy, idiopathic I42.8 Pt does not have any symptoms of CHF, will continue with current medication management. He will undergo an ICD generator change today. He will follow up with our office accordingly. The patient's right anterior tibial cellulitis requiring hospitalization in mid November 2018 appears to have completely resolved. He is currently off of his antibiotics and has had no recurrence of fevers, chills, or worsening erythema over his right anterior tibial area. I believe he may proceed with generator change out this upcoming December 20, 2018. 4. Persistent atrial fibrillation I48.19 Pt is also seen by Dr. Zayas, he is on sotalol and coreg for for heart rate control. He is also on eliquis for anticoagulation.
--- NOTE | 2018-12-20 11:48 | OP.PCM_ITS ---
Report of Operation Description of Procedure: Preoperative diagnosis is device at end of life for normal battery depletion. Postoperative diagnosis same as above. After informed consent and IV antibiotics the patient was brought to the [facility] catheterization laboratory and the skin over the device was prepped and draped in the usual sterile manner. Intermittent boluses of Versed, and fentanyl were used for sedation and analgesia as well as 1% subcutaneous lidocaine. An incision was made over the pre-existing device. Using blunt and Bovie dissection the pocket was opened and the device was removed. Careful attention was paid not to injure the pre-existing leads. The leads were removed from the device header and they were interrogated. There is normal lead function. Hemostasis was obtained. The pocket was flushed with antibiotic solution. The sponge and needle count were correct. The new device was brought to the field. The leads were placed in the appropriate position in the header and secured by the set screw. The leads and the device were then placed in the pocket. The pocket was closed with a deep layer of running 2-0 Vicryl, a superficial layer of running 4-0 Vicryl, skin with Steri-Strips which were covered with a rolled 4 x 4 and Tegaderm. Patient left the room with the device programmed to proper parameters and there were no complications. The device is a Biv ICD generator. All lead parameters were tested and found to be functionally normal. Lead and device serial and model numbers are available in the chart documents provided by the device company shared services representative procedure summary.
== END 2018-12-20 13:40 | disposition home or self-care (01) ==
PROVIDERS: Internal Medicine Cardiovascular Disease; Family Provider Family Medicine; PCP Family Medicine; Referring Provider Internal Medicine Cardiovascular Disease; Visit Provider Internal Medicine Cardiovascular Disease
DX: I42.0 Dilated cardiomyopathy (principal); Z45.02 Encounter for adjustment and management of automatic implantable cardiac defibrillator; I25.10 Atherosclerotic heart disease of native coronary artery without angina pectoris; I48.19 Other persistent atrial fibrillation; E11.9 Type 2 diabetes mellitus without complications; I10 Essential (primary) hypertension; E78.5 Hyperlipidemia, unspecified; J45.909 Unspecified asthma, uncomplicated; M19.90 Unspecified osteoarthritis, unspecified site; E55.9 Vitamin D deficiency, unspecified; G47.33 Obstructive sleep apnea (adult) (pediatric); Z79.01 Long term (current) use of anticoagulants; Z79.4 Long term (current) use of insulin; Z79.82 Long term (current) use of aspirin; Z79.899 Other long term (current) drug therapy
CPT/HCPCS: 33264; 36415; 71046; 80048; 81001; 85027; 85610; 93641; 99152; 99153; J7040; J7050

== ENCOUNTER 2018-12-27 12:21 | Emergency (ER) | payer MEDICARE, SELFPAY ==
[2018-12-27 12:21] VITALS: BMI 48.3
[2018-12-27 12:27] VITALS: BP 109/71; PULSE 59; RESP 18; TEMP 36.5; O2SAT 95; BMI 49.0
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
[2018-12-27 16:25] VITALS: BP 128/71; PULSE 60; RESP 20; O2SAT 95
== END 2018-12-27 16:26 | disposition home or self-care (01) ==
LOC: ED 13:21
PROVIDERS: Emergency Provider Emergency Medicine; Family Provider Family Medicine; PCP Family Medicine
DX: S39.012A Strain of muscle, fascia and tendon of lower back, initial encounter (principal); V43.62XA Car passenger injured in collision with other type car in traffic accident, initial encounter; Y93.9 Activity, unspecified; Y92.9 Unspecified place or not applicable; Y99.9 Unspecified external cause status; I48.91 Unspecified atrial fibrillation; Z79.02 Long term (current) use of antithrombotics/antiplatelets; Z79.82 Long term (current) use of aspirin; Z79.4 Long term (current) use of insulin; Z79.899 Other long term (current) drug therapy; Z95.0 Presence of cardiac pacemaker
CPT/HCPCS: 71045; 72100; 99284

== ENCOUNTER 2019-01-16 10:49 | Day surgery (SDC) | payer MEDICARE, SELFPAY ==
--- NOTE | 2019-01-16 11:17 | PCM.HP.BLA ---
History and Physical Date of Admission: 01/16/19 Mr. Grubbs is a 67-year-old white male who presents today for a cardioversion. He is a gentleman with a history of dilated idiopathic cardiomyopathy with a BiV AICD in 2011 wiht generator change last month, atrial fibrillation s/p cardioversion failure, hypertension, COPD and ARMANDO with Bipap therapy. He also has a history of diabetes. He had a follow-up appointment in October [address] Shai Zayas at the [facility] s/p sotalol therapy and DC cardioversion. He did undergo a generator change January 19, 2019. At that time he was noted to be in atrial fibrillation. It was recommended that he undergo a cardioversion and then have his device reprogrammed to DDDR. Intake Vital Signs 12/06/18 Height 5 ft 8 in 12/06/18 Weight: 322 lb 12/06/18 Body Mass Index (BMI) 48.9 12/06/18 Blood Pressure 100/60 12/06/18 Blood Pressure Location Lt brachial 12/06/18 Blood Pressure Position Sitting 12/06/18 Respiratory Rate 20 H 12/06/18 Pulse Rate 76 12/06/18 Pulse Source Auscultation Intake Visit Reasons: H&P for implant -, Kristy 2pm [employer] Rater Required: No Accompanied by: Is patient in pain?: No Allergies moxifloxacin HCl [From Avelox] Allergy (Verified 11/28/18 10:55) Hives Medications Sitagliptin Phos/Metformin HCl [Janumet 50-500 mg Tablet] 1 ea PO DAILY 06/05/14 [History Confirmed 11/28/18] Montelukast [Singulair] 10 mg PO DAILY 05/15/15 [History Confirmed 11/28/18] buPROPion XL [Wellbutrin Xl] 150 mg PO BID 05/15/15 [History Confirmed 11/28/18] Multivitamins,Ther W-Minerals [Multivitamin With Minerals] 1 tab PO DAILY 06/04/15 [History Confirmed 11/28/18] atorvastatin 20 mg tablet 20 mg PO DAILY 01/26/17 [History Confirmed 11/28/18] aspirin 81 mg tablet,delayed release 81 mg PO DAILY 03/06/17 [History Confirmed 11/28/18] tamsulosin 0.4 mg capsule 0.4 mg PO DAILY 05/29/17 [History Confirmed 11/28/18] amlodipine 5 mg tablet 5 mg PO DAILY 09/14/17 [History Confirmed 11/28/18] tramadol 50 mg tablet 50 mg PO BID tab 03/01/18 [History Confirmed 11/28/18] Insulin Detemir [Levemir FlexPen] 21 units SQ BID 10/04/18 [History Confirmed 11/28/18] apixaban 5 mg tablet 5 mg PO BID tab 10/12/18 [History Confirmed 11/28/18] famotidine 20 mg tablet 20 mg PO BID 10/12/18 [History Confirmed 11/28/18] Gabapentin [Neurontin] 600 mg PO BIDCM 11/12/18 [History Confirmed 11/28/18] sotalol 120 mg tablet 120 mg PO BID #180 tab 11/15/18 [Rx Confirmed 11/28/18] Carvedilol 12.5 mg PO BID 11/22/18 [History Confirmed 11/28/18] Celecoxib [Celebrex] 200 mg PO DAILY 11/22/18 [History Confirmed 11/28/18] Cyanocobalamin (Vitamin B-12) [Vitamin B-12] 1,000 mcg PO DAILY 11/22/18 [History Confirmed 11/28/18] Fluticasone Furoate [Arnuity Ellipta] 1 puff INHALATION PRN PRN 11/22/18 [History Confirmed 11/28/18] Ipratropium [place] 1 - 2 spray NS Q6H PRN 11/22/18 [History Confirmed 11/28/18] Turmeric/Turmeric Root Extract [Turmeric 500 mg Capsule] 1 ea PO BID 11/22/18 [History Confirmed 11/28/18] Furosemide [Lasix] 40 mg PO 11/23/18 [History Confirmed 11/28/18] Cephalexin [Keflex] 500 mg PO Q12 #3 cap 11/27/18 [Rx Confirmed 11/28/18] PFSH Medical History Hyperlipidemia (Chronic) Atherosclerosis of coronary artery of [place] heart without angina pectoris (Chronic) Stage 2 moderate COPD by GOLD classification (Chronic) Asthma (Chronic) ARMANDO (obstructive sleep apnea) (Chronic) Diabetes type 2, controlled (Chronic) Cardiomyopathy, idiopathic (Chronic) HTN (hypertension), benign (Chronic) Persistent atrial fibrillation (Chronic) History of nephrolithiasis (Chronic) Osteoarthritis (Chronic) Vitamin D deficiency (Chronic) Surgical History Presence of biventricular implantable cardioverter-defibrillator (ICD) (Chronic) H/O oral surgery (Chronic) History of lithotripsy (Chronic) Hx of cholecystectomy (Resolved 11/22/17) Family History Father Cancer Lung CA Mother Cancer Sister Myocardial infarction Diabetes Heart disease Uncle CAD (coronary artery disease) Social History (Updated 12/06/18 @ 14:46 by Mynor Taylor MD) Smoking Status: Never smoker alcohol intake: never substance use type: does not use caffeine: No what type of physical activity do you participate in: none seatbelt use: always do you feel safe at home: Yes ROS Const Const: Positive for other (Was in [facility] for R leg cellulitis: better now. For gen change 12/20/18); negative for fatigue, weakness, body ache, fever(s), headache(s), chills, frequent falls, night sweats, daytime sleepiness, difficulty sleeping, excessive sweating, weight gain, weight loss, increased appetite, poor appetite or anorexia Eyes Eyes: Negative for blind spots, loss of peripheral vision, transient loss of vision, blurry vision, change in vision, double vision, floaters, tunnel vision or other ENT ENT: Negative for headache(s), dizziness, hearing loss, tinnitus, Nosebleed/epistaxis, balance problems, post nasal drip, lip swelling, tongue swelling, bleeding gums, hoarseness, neck pain, dry mouth or other Cardio Chest Pain: No Palpitations: No Edema: Bilateral (Right leg remains purple-dark red but it is not nearly as swollen) Muscle aches with walking: None Resp Respiratory: Positive for SOB with activity, Cough (dry cough) and other (has CPAP but it is not working right now.); negative for SOB at rest, SOB orthopnea\SOB lying down, Coughing up blood/hemoptysis, chest congestion, pain on inspiration, snoring, stridor, wheezing, crackles or paroxysmal nocturnal dyspnea GI GI: Negative nausea, vomiting, heartburn, constipation, belching, bloating, cramping, vomiting blood/hematemesis, bright, red blood in stools, black,tarry stools, loose stools, Difficulty Swallowing or other : Negative for hematuria, frequent nighttime urination/ nocturia, erectile dysfunction or abnormal vaginal bleeding Musc Musc: Negative for muscle aches/ myalgia, muscle weakness, joint pain or balance problems Skin Skin: Negative redness, non-healing lesions, rash, unusual bruising, skin ulcer, wounds, jaundice or other Neuro Neuro: Negative for dizziness, lightheadedness, near syncope, syncope, orthostatic symptoms, frequent falls, headache(s), weakness, confusion, memory loss, restless legs, blurry vision, double vision, vertigo, seizures, lack of coordination or other Cristian Hematologic/Lymphatic: Negative for easy bleeding, easy bruising, enlarged lymph nodes or other Endo Endo: Negative for fatigue, cold intolerance, heat intolerance, excessive sweating, flushing, increased thirst/drinking, increased hunger, hair loss, hair growth or other Psych Psych: Negative for anxiety, depression, thoughts of harming anyone, thoughts of harming yourself, visual hallucinations, panic attacks or audible hallucinations Allergy Allergy/Immunology: Negative for throat swelling, Negative for tongue swelling, Negative for hives, Negative for rash, Negative for lip swelling Cardiology Exam Const Appearance: cooperative, healthy appearing and no acute distress Nutritional Appearance: well nourished Orientation: alert, oriented x3 and oriented to person Head Head: normal to inspection, normocephalic and atraumatic Nose: external nose normal Face and Sinus: face symmetric Mouth: oral mucosae normal Eyes General: appearance normal, both eyes and all related structures Eyelids: eyelids normal Conjunctivae: conjunctivae normal Pupils: PERRL and normal by confrontation EOM: EOM intact bilaterally Neck Neck: normal visual inspection and full ROM Carotids: normal carotid upstroke Chest Chest inspection: normal inspection of the chest Auscultation: Bilateral: Clear to Auscultation Cardio Palpation: normal PMI Rhythm: Irregularly irregular Heart sounds: S1 normal and S2 normal GI GI: normal to inspection, no hepatosplenomegaly and bowel sounds present Neuro General: alert, awake, oriented x3, CN's II-XI intact bilaterally and moves all extremities Skin Skin: no rashes or lesions noted Extremities Pulses: Normal: Right Femoral Pulse, Left Femoral Pulse, Right Dorsalis Pedis Pulse, Left Dorsalis Pedis Pulse, Right Posterior Tibial Pulse, Left Posterior Tibial Pulse, Right Radial Pulse, Left Radial Pulse Lower Extremity Edema: None: Bilateral Psych Psychological: normal affect Assessment & Plan 1. Atherosclerosis of [place] coronary artery of [place] heart without angina pectoris I25.10 No exertional anginal symptoms at this time. No indication for any additional testing. I recommended he continue his amlodipine, baby aspirin, Coreg. 2. Pure hypercholesterolemia E78.5 His LDL and HDL cholesterol are fairly well-controlled at this time. His LDL is 40. Recommend continuing his current dose of Lipitor. 3. Cardiomyopathy, idiopathic I42.8 Patient does not have any symptoms of congestive heart failure. He will continue with current medical management. 4. Persistent atrial fibrillation I48.19 Patient is here today for a cardioversion. He has been anticoagulated with his Eliquis for 30 days without being interrupted. He is also on rate limiting medication in addition to sotalol. 5. ICD: Patient's ICD will be adjusted to DDDR after his cardioversion today. He will follow-up in the office accordingly.
[2019-01-16 12:12] LABS: Anion Gap 5 (5-15); BUN 26 mg/dL (7-18); BUN/Creat Ratio 19.8 RATIO (10-20); Calcium,Total 8.6 mg/dL (8.5-10.1); Chloride 109 mmol/L (98-107); Creatinine, Serum 1.31 mg/dL (0.70-1.30); EST Glomerular Filtration Rate 58 mL/min (>60); Est Glom Filt Rate - Afr Amer 70 mL/min (>60); Glucose 143 mg/dL (74-106); Potassium 3.8 mmol/L (3.5-5.1); Sodium Level 142 mmol/L (136-145)
--- NOTE | 2019-01-16 13:18 | PRO.PCM_ITS ---
Problem List (1) Segmental and somatic dysfunction of lumbar region Status: Acute (2) Segmental and somatic dysfunction of pelvic region Status: Acute (3) Segmental and somatic dysfunction of thoracic region Status: Acute (4) Asthma Status: Chronic Qualifiers: (5) Atherosclerosis of coronary artery of [place] heart without angina pectoris Status: Chronic Qualifiers: Coronary Disease-Associated Artery/Lesion type: [place] artery Qualified Code(s): I25.10 - Atherosclerotic heart disease of [place] coronary artery without angina pectoris (6) Cardiomyopathy, idiopathic Status: Chronic (7) DDD (degenerative disc disease) Status: Chronic Qualifiers: Spinal region: thoracolumbar Qualified Code(s): M51.35 - Other intervertebral disc degeneration, thoracolumbar region (8) Diabetes type 2, controlled Status: Chronic Qualifiers: (9) HTN (hypertension), benign Status: Chronic (10) Hyperlipidemia Status: Chronic Qualifiers: (11) ARMANDO (obstructive sleep apnea) Status: Chronic Comment: 22/12 cm of water, backup rate of 16 (12) Persistent atrial fibrillation Status: Chronic (13) Presence of biventricular implantable cardioverter-defibrillator (ICD) Status: Chronic Comment: Gen change 12/20/[address] Zayas (14) Stage 2 moderate COPD by GOLD classification Status: Chronic Procedure Report Date of Procedure: 01/16/19 - Conscious sedation CONSCIOUS SEDATION REPORT BRIEF HISTORY OF PRESENT ILLNESS: The patient is a 68-year-old male who presented to [facility] for an elective outpatient cardioversion due to underlying atrial fibrillation. The patient reports no PO intake since midnight. The patient does have a history of obstructive sleep apnea. The patient reports a history of smoking and COPD. The patient denies any recent constitutional symptoms such as fevers, chills, nausea or vomiting. The patient denies previous anesthetic complications. Patient's last known ejection fraction is 65% and patient is anticoagulated with Eliquis. Patient denies recent URI symptoms. PHYSICAL EXAMINATION: VITAL SIGNS: Reviewed and were acceptable. GENERAL: The patient is a male, in no apparent distress, speaking in full sentences. HEENT: Normocephalic, atraumatic. Mucous membranes are moist and pink. Good mouth opening noted. Trachea is midline. Good neck mobility. MP IV CHEST: S1, S2 irregularly irregular. No murmurs, rubs or gallops were noted. LUNGS: Clear to auscultation bilaterally without appreciable wheezes, rales or rhonchi. ABDOMEN: Soft, nontender, nondistended. Positive bowel sounds. EXTREMITIES: There is no clubbing, cyanosis. Significant lower extremity edema appreciated ASA Class: II DESCRIPTION OF PROCEDURE: After confirmation of informed consent, the patient's anesthesia plan was reviewed in detail. Propofol was chosen. Risks and benefits were reviewed and the patient agreed to proceed. At 12:54 PM, the patient was given 40 mg of propofol. The patient required a total of 50 mg of propofol throughout the procedure to achieve appropriate sedation. The patient achieved an appropriate level of sedation and received 1 attempt synchronized cardioversion, at [address] Taylor at the bedside. This was successful in achieving normal sinus rhythm. The patient was monitored until 1:01 PM, at which time the patient reached their baseline mental status and function. The patient tolerated the procedure well. COMPLICATIONS: None ESTIMATED BLOOD LOSS: None RECOMMENDATIONS: Okay to recover in usual fashion. Code Visit [id number]: Other Procedure See Report - 03148 -7 minutes
--- NOTE | 2019-01-16 13:18 | CARDIOVERS ---
Cardioversion Cardioversion: DC cardioversion report: Patient is brought to the catheterization holding room in the fasting state, and the risk and benefits of the procedure were thoroughly explained the patient and informed consent was obtained. The defibrillator pads were placed by myself in the AP position. Patient has been on sotalol and Eliquis. With the assistance of Dr. Roderick Brizuela, the patient received a total of 50 mg of IV propofol. Once sedation was obtained, the patient received a single biphasic synchronized 250 J shock which converted him from atrial flutter to normal sinus rhythm with paced ventricular response. His defibrillator/pacemaker was interrogated by the pacemaker rep, and appears to be functioning normally. Conclusions: Successful Eliquis and sotalol assisted DC cardioversion from atrial flutter to normal sinus rhythm with paced ventricular response with a single 250 J biphasic synchronized shock. Patient will continue on current medical therapy, and report to our office in 1 week's time for an EKG. Patient spontaneously awoke, moves all 4 extremities and tolerated the procedure well. Many thanks Dr. Roderick Brizuela for his assistance.
== END 2019-01-16 14:04 | disposition home or self-care (01) ==
LOC: CLSP 10:50
PROVIDERS: Family Provider Family Medicine; PCP Family Medicine; Referring Provider Internal Medicine Cardiovascular Disease; Visit Provider Internal Medicine Cardiovascular Disease
DX: I48.19 Other persistent atrial fibrillation (principal); I42.0 Dilated cardiomyopathy; I25.10 Atherosclerotic heart disease of native coronary artery without angina pectoris; E11.9 Type 2 diabetes mellitus without complications; I10 Essential (primary) hypertension; J44.9 Chronic obstructive pulmonary disease, unspecified; E78.5 Hyperlipidemia, unspecified; G47.33 Obstructive sleep apnea (adult) (pediatric); M19.90 Unspecified osteoarthritis, unspecified site; E55.9 Vitamin D deficiency, unspecified; Z79.82 Long term (current) use of aspirin; Z79.4 Long term (current) use of insulin; Z79.01 Long term (current) use of anticoagulants; Z79.899 Other long term (current) drug therapy; Z95.810 Presence of automatic (implantable) cardiac defibrillator; Z87.891 Personal history of nicotine dependence
CPT/HCPCS: 80048; 92960; 93005; J7040

== ENCOUNTER 2019-03-11 08:49 | Emergency (ER) | payer MEDICARE, SELFPAY ==
[2019-03-01 13:27] VITALS: BMI 49.0
[2019-03-11 08:51] VITALS: BP 150/82; PULSE 77; RESP 20; TEMP 36.8; O2SAT 94; BMI 50.1
--- NOTE | 2019-03-11 09:01 | ED.VIS.GEN ---
History of Present Illness Chief Complaint: Lower Extremity Injury Detail of Chief Complaint: Left foot and ankle pain Informant: Patient, Significant Other Onset: Today - Pain significantly worse today Context: Sudden Onset Timing: Continuous Quality: Pain Location: Left ankle and foot Current Severity: Mild Maximum Severity: Severe Worsened by: Walking Relieved by: Significantly better resting with foot elevated Associated Symptoms: No known history of trauma and no symptoms of claudication Narrative: Patient is a 68-year-old male with multiple medical problems who presents with pain left foot. Pain is worse with ambulation or weightbearing. He does have history of neuropathy according to . He is on no medicine for his neuropathy. He denies symptoms of claudication. He denies fever, chills or night sweats. He denies history of gout or pseudogout. He denies discoloration to his skin. He has not noted a temperature difference between the left and right foot. Prior similar symptoms: No Recent Illness/Hospitalization: No - Past Medical History (1) Asthma Status: Chronic (2) Atherosclerosis of coronary artery of [place] heart without angina pectoris Status: Chronic (3) Cardiomyopathy, idiopathic Status: Chronic (4) DDD (degenerative disc disease) Status: Chronic (5) Diabetes type 2, controlled Status: Chronic (6) HTN (hypertension), benign Status: Chronic (7) Hyperlipidemia Status: Chronic (8) ARMANDO (obstructive sleep apnea) Status: Chronic Comment: 22/12 cm of water, backup rate of 16 (9) Persistent atrial fibrillation Status: Chronic (10) Stage 2 moderate COPD by GOLD classification Status: Chronic (11) History of lithotripsy Status: Resolved (12) Hx of cholecystectomy Status: Resolved (13) Presence of biventricular implantable cardioverter-defibrillator (ICD) Status: Resolved Comment: Gen change 12/20/[address] Zayas Past Medical History - Allergies and Home Meds Allergies/Adverse Reactions: Allergies moxifloxacin HCl [From Avelox] Allergy (Verified 03/11/19 08:51) Elias Primary Care Physician: Adithya Weaver MD [Primary Care Provider] - Surgical History: cholecystectomy, pacemaker implantation Lives: Spouse/ Significant Other Smoking Status: Never smoker Alcohol: None Drugs: None Review of Systems General: Denies: Chills, Fever, Malaise, Sweats, Weight loss Respiratory: Denies: Dyspnea, Cough Gastrointestinal: Denies: Abdominal pain, Nausea, Vomiting Musculoskeletal: Reports: Extremity Pain. Denies: Myalgias, Arthralgias, Neck pain, Back pain, Swelling Skin: Denies: Rash, Wounds Neurological: Reports: Parasthesia, Numbness. Denies: Weakness Endocrine: Denies: Polyuria, Polydipsia Hematologic: Denies: Easy bruising, Easy bleeding Physical Exam Vital Signs/Narrative: Vital Signs Temp Pulse Resp BP Pulse Ox 03/11/19 08:51 98.2 F 77 20 H 150/82 H 94 Inital Vital Signs reviewed: Yes General: Well nourished, Well developed, Obese, No Acute Distress Head: Normocephalic, Atraumatic Eyes: Perrl, EOMI. Negative for: Pale conjunctiva, Scleral icterus ENT: Moist mucous membranes, No rhinorrhea Cardiovascular: Regular rhythm, No murmurs, Normal S1, Normal S2, Irregular Respiratory: No distress, CTA bilaterally Extremities: No edema, Tenderness, - - Pain palpation of the left foot. There is no specific point area of tenderness. DP pulses palpable and 2+. PT pulse is palpable and 1+. Capillary refill is less than 2 seconds.. Negative for: Nontender Skin: Normal color, No rash, No Trauma. Negative for: Cyanosis, Diaphoresis, Jaundice Neurological: Alert, Oriented x3, Cranial nerves II-XII grossly intact, Normal Strength, Normal Sensation Psychological: Normal affect Diagnostic/Tx/Re-eval Chest X-Ray - ED: Read by ED Physician, - - View x-ray of the left foot was obtained. There is minimal arthritic changes. There is also minimal atherosclerotic disease noted. There is no effusion of the ankle. There is no fracture, subluxation or dislocation of any bones. 03/11/19 09:00 Foot min 3 Views [RAD] Stat - Medical Decision Making Differential diagnosis would include diabetic neuropathy, stress fracture, degenerative arthritis/osteoarthritis. X-ray of the foot was obtained. Patient was medicated with Neurontin and oxycodone. Evidence of atherosclerosis, diabetes and atraumatic pain will treat for neuropathy. He was discharged with a prescription for Neurontin. Instructed to follow-up with his primary care physician in 1 to 2 weeks. ED Disposition - Plan for ED Patient: Disposition: Home or Assisted Living Diagnosis: Neuropathy of left foot Instructions: NEUROPATHY, Peripheral Prescriptions: Gabapentin [Neurontin] 300 mg PO UD #90 cap Transmission Status: Pending to [id number] Referrals: Adithya Weaver MD [Primary Care Provider] - 1 Week if not improving
[2019-03-11] MEDS: oxyCODONE 5 MG Tablet PO (09:08)
[2019-03-11] MEDS: Gabapentin 100 MG Capsule PO (09:09)
--- NOTE | 2019-03-11 09:12 | RAD_ITS ---
STUDY: X-RAY - LEFT FOOT CLINICAL: Male, 68 years old. Left foot pain for a couple days; no known injury TECHNIQUE: 3 view(s) of the foot. COMPARISON: None. FINDINGS: Normal talus, calcaneus, and tarsal bones. Normal visualized subtalar, talonavicular, calcaneocuboid, tarsal and tarsometatarsal articulations. Normal metatarsi. Normal metatarsophalangeal joint of the great toe. Normal tibial and fibular sesamoid bones. Normal interphalangeal joint of the great toe. Normal phalanges of the great toe. Normal second through fifth metatarsophalangeal joints. Normal interphalangeal joints and phalanges of the lesser toes. The soft tissue structures are unremarkable. RAD/Foot min 3 Views IMPRESSION: Normal x-ray examination of the foot. Electronically Signed: Chandler Ruffin, at 9:44 EST , Service support ,
== END 2019-03-11 09:33 | disposition home or self-care (01) ==
LOC: ED 09:30
PROVIDERS: Emergency Provider Emergency Medicine; PCP Family Medicine
DX: E11.40 Type 2 diabetes mellitus with diabetic neuropathy, unspecified (principal); I25.10 Atherosclerotic heart disease of native coronary artery without angina pectoris; I48.19 Other persistent atrial fibrillation; J44.9 Chronic obstructive pulmonary disease, unspecified; I10 Essential (primary) hypertension; E78.5 Hyperlipidemia, unspecified; I42.9 Cardiomyopathy, unspecified; G47.33 Obstructive sleep apnea (adult) (pediatric); Z79.4 Long term (current) use of insulin; Z79.82 Long term (current) use of aspirin; Z79.899 Other long term (current) drug therapy; Z95.810 Presence of automatic (implantable) cardiac defibrillator
CPT/HCPCS: 73630; 99283

== ENCOUNTER → 2019-03-12 11:00 | Outpatient (CLI) | payer MEDICARE, MEDICAID, SELFPAY ==
[2019-03-01 13:27] VITALS: BMI 49.0
== END ==
PROVIDERS: PCP Family Medicine; Referring Provider Nurse Practitioner Acute Care; Visit Provider Nurse Practitioner Acute Care
DX: G47.33 Obstructive sleep apnea (adult) (pediatric) (principal)
CPT/HCPCS: 98960; G0463

== ENCOUNTER 2019-03-20 07:20 | Day surgery (SDC) | payer MEDICARE, MEDICAID, SELFPAY ==
[2019-02-28 09:16] VITALS: BMI 49.0
--- NOTE | 2019-03-06 02:15 | HP_ITS ---
Intake Vital Signs 02/28/19 Height 5 ft 9 in 02/28/19 Weight: 333 lb 02/28/19 BMI 49.1 02/28/19 BP 137/87 H 02/28/19 Blood Pressure Location Rt brachial 02/28/19 Position Sitting 02/28/19 Respiration 20 H 02/28/19 Pulse 83 02/28/19 Pulse Source Monitor 02/28/19 Temp 97.9 F 02/28/19 Temp Source Oral 02/28/19 Pulse Oximetry (%) 93 02/28/19 Oxygen Delivery Method room air Intake Visit Reasons: RECTAL BLEED Chief Complaint: low back pain Roustabout Required: No Accompanied by: Is patient in pain?: No Allergies moxifloxacin HCl [From Avelox] Allergy (Verified 03/01/19 13:25) Hives Medications Sitagliptin Phos/Metformin HCl [Janumet 50-500 mg Tablet] 1 ea PO DAILY 06/05/14 [History Confirmed 03/01/19] Montelukast [Singulair] 10 mg PO DAILY 05/15/15 [History Confirmed 03/01/19] buPROPion XL [Wellbutrin Xl] 150 mg PO BID 05/15/15 [History Confirmed 03/01/19] Multivitamins,Ther W-Minerals [Multivitamin With Minerals] 1 tab PO DAILY 06/04/15 [History Confirmed 03/01/19] atorvastatin 20 mg tablet 20 mg PO DAILY 01/26/17 [History Confirmed 03/01/19] aspirin 81 mg tablet,delayed release 81 mg PO DAILY 03/06/17 [History Confirmed 03/01/19] tamsulosin 0.4 mg capsule 0.4 mg PO DAILY 05/29/17 [History Confirmed 03/01/19] amlodipine 5 mg tablet 5 mg PO DAILY 09/14/17 [History Confirmed 03/01/19] tramadol 50 mg tablet 50 mg PO BID tab 03/01/18 [History Confirmed 03/01/19] Insulin Detemir [Levemir FlexPen] 21 units SQ BID 10/04/18 [History Confirmed 03/01/19] apixaban 5 mg tablet 5 mg PO BID tab 10/12/18 [History Confirmed 03/01/19] famotidine 20 mg tablet 20 mg PO BID 10/12/18 [History Confirmed 03/01/19] Gabapentin [Neurontin] 600 mg PO BIDCM 11/12/18 [History Confirmed 03/01/19] sotalol 120 mg tablet 120 mg PO BID #180 tab 11/15/18 [Rx Confirmed 03/01/19] Carvedilol 12.5 mg PO BID 11/22/18 [History Confirmed 03/01/19] Celecoxib [Celebrex] 200 mg PO DAILY 11/22/18 [History Confirmed 03/01/19] Cyanocobalamin (Vitamin B-12) [Vitamin B-12] 1,000 mcg PO DAILY 11/22/18 [History Confirmed 03/01/19] Fluticasone Furoate [Arnuity Ellipta] 1 puff INHALATION PRN PRN 11/22/18 [History Confirmed 03/01/19] Ipratropium [place] 1 - 2 spray NS Q6H PRN 11/22/18 [History Confirmed 03/01/19] Turmeric/Turmeric Root Extract [Turmeric 500 mg Capsule] 1 ea PO BID 11/22/18 [History Confirmed 03/01/19] Furosemide [Lasix] 40 mg PO DAILY 11/23/18 [History Confirmed 03/01/19] Cephalexin [Keflex] 500 mg PO Q12 #3 cap 11/27/18 [Rx Confirmed 03/01/19] PFSH Family History Father Cancer Lung CA Mother Cancer Sister Myocardial infarction Diabetes Heart disease Uncle CAD (coronary artery disease) Social History (Updated 03/06/19 @ 14:15 by Juju Winston MD) Smoking Status: Never smoker alcohol intake: never substance use type: does not use caffeine: No what type of physical activity do you participate in: none seatbelt use: always do you feel safe at home: Yes HPI HPI HPI: SHIRLEY DELAROSA, is a 68 M who presents to the office today for HPI HPI Surgical H&P: Yes HPI: SHIRLEY DELAROSA, is a 68 M who presents to the office today for bright red blood per rectum. Patient states for about the last year he has had bright red blood per rectum on the toilet paper with about every bowel movement patient states he has bowel meds about every other day. Patient does state that he does strain when he is on the toilet. Patient denies any abdominal pain/nausea/vomiting/heartburn. Patient states his last colonoscopy was about 10 years ago at [place] and was negative per the patient. Patient is scheduled to undergo bariatric surgery at [facility] hopefully in April 2019. Patient is unsure if he gets enough fiber daily. But he has been drinking about 64 ounces of water daily preoperatively for the bariatric surgery. ROS General General: Yes weight change and fatigue; no colon cancer, breast cancer or weakness HEENT HEENT: No difficulty swallowing, eye injury, eye surgery, swollen glands or hoarseness Endo Endocrine: Yes diabetes mellitus; no thyroid disease, thyroid cancer, Hair loss, heat intolerance or cold intolerance Skin Skin: No rash or changing moles Breast Breast: No left breast lump, right breast lump, nipple discharge, breast pain, abnormal mammogram, abnormal US or breast enlargement Musc Musculoskeletal: Yes back problems, arthritis and rheumatoid arthritis; no gout or joint pain Cardio Cardiovascular: Yes pacemaker, heart disease, atrial fibrillation and high blood pressure; no murmur, heart attack, heart stent, palpitations, shortness of breat with exertion or chest pain Psych Psychiatric: No depression, anxiety or hearing voices Resp Respiratory: Yes shortness of breath, Yes sleep apnea, Yes cough, Yes COPD, Yes asthma, No emphysema, No wheezing Gastro Gastrointestinal: No abdominal pain, No nausea or vomiting, No diarrhea, Yes constipation, Yes blood in stool, No acid reflux, Yes hemorrhoids, No ulcers, Yes gallbladder problem, No black,tarry stools Cristian Hematologic: Yes blood thinners, No blood disorders, No bleeding, No anemia, No blood clots Neuro Neurologic: No system reviewed and no additional complaints, except as docu, No as per HPI, No abnormal walking, No abnormal hearing, No abnormal movements, No abnormal speech, No behavioral changes, No burning sensations, No confusion, No seizure-like activity, No unsteadiness, No dizziness, No localized weakness, No frequent falls, No headache(s), No lack of coordination, No loss of vision, No memory loss, Yes numbness, No other visual disturbances, No radiating pain, No restless legs, No sensory deficit, No fainting, Yes tingling, No tremor(s), No weakness, No other Exam Const General: cooperative, comfortable, no acute distress Chest Breast Palpation: No nipple discharge Resp Effort & Inspection: normal respiratory effort Cardio Rate: regular rate Heart Sounds: no murmurs GI Inspection: non-distended, obesity Palpation: soft, no guarding, hernia (Umbilical, incarcerated chronically), nontender Other: ZAIDA: Small internal hemorrhoids on exam, no gross blood Assessment & Plan Problems 1. Blood per rectum K62.5 Plan Did also give the patient a list of high-fiber foods and recommend 30 g of fiber daily. I have discussed the above with the patient. I have offered the patient colonoscopy for evaluation. I have explained the risks/benefits of the procedure and described the procedure. I have discussed the risks with the patient, including but not limited to: infection, bleeding, perforation of the GI tract requiring emergency surgery, inability to complete the procedure, injury to any internal organs, complications of anesthesia, etc. - the patient understands and agrees to proceed. I have answered all the patient's questions to the patient's satisfaction and the patient has no further questions. The patient has been given instructions for the colon cleansing preparation. One day of clears, MiraLAX to collect split prep. Juju Winston M.D. Pager: [phone] [facility] [address] [place] [address], [address] [place] [address] Office: [phone] Plan Detail Goals Decrease spasm Improve ROM Decrease pain Barriers DDD Obesity Compression fx L3 Follow Up We will schedule colonoscopy Coding Level of Care Code Off vis,new,level 3 Diagnoses Blood per rectum K62.5 03/06/19 1416 <Electronically signed by Juju Burton am, MD> Date _ Juju Winston MD I have examined the patient the following changes are noted: Patient denies any further bleeding 03/20/19 0820 <Electronically signed by Juju Wilder> Date _ Juju Winston MD
[2019-03-20] VITALS (7 sets, daily range): BP systolic 92–133; BP diastolic 58–98; PULSE 62–77; RESP 16–20; TEMP 36.6–37.3; O2SAT 92–98; BMI 49.1
--- NOTE | 2019-03-20 | COLBX_PTH ---
PATIENT: SHIRLEY DELAROSA LOC: EN U#:[id number] AGE/SX: 68/M ROOM: RE03/20/[address]: Dr. Juju Winston MD : 1950 BED: DIS: 03/20/2019 SPEC #: [id number] RECD: 03/20/19 15:02 STATUS: MIKEY JESUSITA #: [id number] CARLOS: 03/20/19 00:[address]: Juju Winston DEPT: SURGICAL PATHOLOGY RECD BY: Levy Donahue ENTERED: 03/20/19 15:02 SP TYPE: COLON BX OTHR DR: Dr. Adithya Weaver MD Tissues: A - Descending colon B - Rectum, NOS Procedures: Surgery Specimen Level IV HEADER OPERATION: Colonoscopy (MAC) PRE-OP DIAGNOSIS: Blood per rectum TISSUE SUBMITTED: A - Descending colon polyp, B - Biopsy of rectum polyp MICROSCOPIC DIAGNOSIS A. Descending colon polyp, biopsy: Fragments of tubular adenoma. B. Rectal polyp, biopsy: Hyperplastic polyp. AM:gennaro 03/21/19 MICROSCOPIC DESCRIPTION Slides are reviewed. GROSS DESCRIPTION A - Received in fixative is one container labeled with the patient's name and designated descending colon polyp. The specimen consists of multiple irregular fragments of light dillard soft tissue that in aggregate measure 0.3 x 0.3 x 0.1 cm. The specimen is totally submitted in one cassette. B - Received in fixative is one container labeled with the patient's name and designated rectal polyp. The specimen consists of one irregular fragment of light dillard soft tissue that measures 0.3 x 0.2 x 0.1 cm. The specimen is totally submitted in one cassette. / AM:gennaro 03/20/19 TC:5 CPT: 32785 x2
[2019-03-20] MEDS: Lactated Ringers 1,000 ML 100 ML IV (07:57)
[2019-03-20 08:05] LABS: Bedside Glucose 167 mg/dL (70-110)
--- NOTE | 2019-03-20 09:42 | OP.COLON_ITS ---
Patient Name: Lc Grubbs Procedure Date: 03/20/2019 8:34 AM Date of : 1950 Age: 68 Procedure: Colonoscopy Indications: Rectal bleeding Providers: Juju Winston MD Referring MD: Adithya Weaver Medicines: Monitored Anesthesia Care Patient Profile: This is a 68 year old male. Last Colonoscopy: none. The patient's first colonoscopy is today. Complications: No immediate complications. Procedure: Pre-Anesthesia Assessment: - Prior to the procedure, a History and Physical was performed, and patient medications and allergies were reviewed. The patient's tolerance of previous anesthesia was also reviewed. The risks and benefits of the procedure and the sedation options and risks were discussed with the patient. All questions were answered, and informed consent was obtained. Prior Anticoagulants: The patient has taken Eliquis (apixaban), last dose was 3 days prior to procedure. ASA Grade Assessment: III - A patient with severe systemic disease. After reviewing the risks and benefits, the patient was deemed in satisfactory condition to undergo the procedure. After I obtained informed consent, the scope was passed under direct vision. Throughout the procedure, the patient's blood pressure, pulse, and oxygen saturations were monitored continuously. The pediatric colonoscope was introduced through the anus and advanced to the cecum, identified by the appendiceal orifice, ileocecal valve and palpation. The colonoscopy was somewhat difficult due to unsatisfactory bowel prep. Successful completion of the procedure was aided by lavage. The patient tolerated the procedure well. The quality of the bowel preparation was adequate after about 2 liters of lavage. Scope In: 8:47:50 AM Scope Withdrawal Time 0 hours 30 minutes 23 seconds Scope Out: 9:31:31 AM Total Procedure Duration Time 0 hours 43 minutes 41 seconds Findings: The perianal and digital rectal examinations were normal. A 5 mm polyp was found in the descending colon. The polyp was pedunculated. The polyp was removed with a hot snare. Resection and retrieval were complete. A less than 5 mm polyp was found in the rectum. The polyp was sessile. The polyp was removed with a cold biopsy forceps. Resection and retrieval were complete. Multiple small-mouthed diverticula were found in the sigmoid colon and descending colon. The exam was otherwise without abnormality on direct and retroflexion views. Impression: - One 5 mm polyp in the descending colon, removed with a hot snare. Resected and retrieved. - One less than 5 mm polyp in the rectum, removed with a cold biopsy forceps. Resected and retrieved. - Diverticulosis in the sigmoid colon and in the descending colon. - The examination was otherwise normal on direct and retroflexion views. Recommendation: - Discharge patient to home. - High fiber diet. - Continue present medications. - Await pathology results. - Repeat colonoscopy in 3 - 5 years for surveillance based on pathology results. - Resume Eliquis (apixaban) at prior dose tomorrow. Procedure Code(s): --- Professional --- 92745, Colonoscopy, flexible; with removal of tumor(s), polyp(s), or other lesion(s) by snare technique 18779, 59, Colonoscopy, flexible; with biopsy, single or multiple Diagnosis Code(s): --- Professional --- D12.4, Benign neoplasm of descending colon K62.1, Rectal polyp K62.5, Hemorrhage of anus and rectum K57.30, Diverticulosis of large intestine without perforation or abscess without bleeding CPT copyright 2017 [employer]. All rights reserved. The codes documented in this report are preliminary and upon technical lead review may be revised to meet current compliance requirements. MD Juju Chavez MD 03/20/2019 9:41:42 AM This report has been signed electronically. Number of Addenda: 0 Note Initiated On: 03/20/2019 8:34 AM
--- NOTE | 2019-03-20 09:42 | OP.CCLET_ITS ---
03/20/2019 Adithya Weaver [address] [place] [address] Re : Colonoscopy procedure for Lc Grubbs Dear Dr. Weaver This procedure was performed on Wednesday, March 20, 2019. My impressions and recommendations are as follows: Impressions : - One 5 mm polyp in the descending colon, removed with a hot snare. Resected and retrieved. - One less than 5 mm polyp in the rectum, removed with a cold biopsy forceps. Resected and retrieved. - Diverticulosis in the sigmoid colon and in the descending colon. - The examination was otherwise normal on direct and retroflexion views. Recommendations : - Discharge patient to home. - High fiber diet. - Continue present medications. - Await pathology results. - Repeat colonoscopy in 3 - 5 years for surveillance based on pathology results. - Resume Eliquis (apixaban) at prior dose tomorrow. My findings are described in the full procedure note, which is enclosed. If I can be of further assistance, please feel free to contact me at Doctor phone number(s): , Work: . Sincerely, MD Juju Chavez MD 03/20/2019 9:41:42 AM This report has been signed electronically.
== END 2019-03-20 10:46 | disposition home or self-care (01) ==
LOC: EN 07:21 → AC 07:23
PROVIDERS: PCP Family Medicine; Referring Provider Family Medicine; Visit Provider Surgery
PROC: 0DJD8ZZ Inspection of Lower Intestinal Tract, Via Natural or Artificial Opening Endoscopic (ICD-10-PCS; CPT 45378; principal; 2019-03-20 08:40)
DX: D12.4 Benign neoplasm of descending colon (principal); K62.1 Rectal polyp; K64.8 Other hemorrhoids; K57.30 Diverticulosis of large intestine without perforation or abscess without bleeding; E11.9 Type 2 diabetes mellitus without complications; I10 Essential (primary) hypertension; J45.909 Unspecified asthma, uncomplicated; G47.30 Sleep apnea, unspecified; K21.9 Gastro-esophageal reflux disease without esophagitis; E66.9 Obesity, unspecified; Z68.42 Body mass index [BMI] 45.0-49.9, adult; Z79.82 Long term (current) use of aspirin; Z79.4 Long term (current) use of insulin; Z79.1 Long term (current) use of non-steroidal anti-inflammatories (NSAID); Z79.01 Long term (current) use of anticoagulants; Z79.899 Other long term (current) drug therapy; Z87.19 Personal history of other diseases of the digestive system; Z95.0 Presence of cardiac pacemaker
CPT/HCPCS: 45380; 45385; 82962; 88305; J7120; J2405

== ENCOUNTER 2019-03-25 05:56 | Day surgery (SDC) | payer MEDICARE, MEDICAID, SELFPAY ==
--- NOTE | 2019-03-06 02:15 | HP_ITS ---
Intake Vital Signs 02/28/19 Height 5 ft 9 in 02/28/19 Weight: 333 lb 02/28/19 BMI 49.1 02/28/19 BP 137/87 H 02/28/19 Blood Pressure Location Rt brachial 02/28/19 Position Sitting 02/28/19 Respiration 20 H 02/28/19 Pulse 83 02/28/19 Pulse Source Monitor 02/28/19 Temp 97.9 F 02/28/19 Temp Source Oral 02/28/19 Pulse Oximetry (%) 93 02/28/19 Oxygen Delivery Method room air Intake Visit Reasons: RECTAL BLEED Chief Complaint: low back pain Narcotics Agent Required: No Accompanied by: Is patient in pain?: No Allergies moxifloxacin HCl [From Avelox] Allergy (Verified 03/01/19 13:25) Hives Medications Sitagliptin Phos/Metformin HCl [Janumet 50-500 mg Tablet] 1 ea PO DAILY 06/05/14 [History Confirmed 03/01/19] Montelukast [Singulair] 10 mg PO DAILY 05/15/15 [History Confirmed 03/01/19] buPROPion XL [Wellbutrin Xl] 150 mg PO BID 05/15/15 [History Confirmed 03/01/19] Multivitamins,Ther W-Minerals [Multivitamin With Minerals] 1 tab PO DAILY 06/04/15 [History Confirmed 03/01/19] atorvastatin 20 mg tablet 20 mg PO DAILY 01/26/17 [History Confirmed 03/01/19] aspirin 81 mg tablet,delayed release 81 mg PO DAILY 03/06/17 [History Confirmed 03/01/19] tamsulosin 0.4 mg capsule 0.4 mg PO DAILY 05/29/17 [History Confirmed 03/01/19] amlodipine 5 mg tablet 5 mg PO DAILY 09/14/17 [History Confirmed 03/01/19] tramadol 50 mg tablet 50 mg PO BID tab 03/01/18 [History Confirmed 03/01/19] Insulin Detemir [Levemir FlexPen] 21 units SQ BID 10/04/18 [History Confirmed 03/01/19] apixaban 5 mg tablet 5 mg PO BID tab 10/12/18 [History Confirmed 03/01/19] famotidine 20 mg tablet 20 mg PO BID 10/12/18 [History Confirmed 03/01/19] Gabapentin [Neurontin] 600 mg PO BIDCM 11/12/18 [History Confirmed 03/01/19] sotalol 120 mg tablet 120 mg PO BID #180 tab 11/15/18 [Rx Confirmed 03/01/19] Carvedilol 12.5 mg PO BID 11/22/18 [History Confirmed 03/01/19] Celecoxib [Celebrex] 200 mg PO DAILY 11/22/18 [History Confirmed 03/01/19] Cyanocobalamin (Vitamin B-12) [Vitamin B-12] 1,000 mcg PO DAILY 11/22/18 [History Confirmed 03/01/19] Fluticasone Furoate [Arnuity Ellipta] 1 puff INHALATION PRN PRN 11/22/18 [History Confirmed 03/01/19] Ipratropium [place] 1 - 2 spray NS Q6H PRN 11/22/18 [History Confirmed 03/01/19] Turmeric/Turmeric Root Extract [Turmeric 500 mg Capsule] 1 ea PO BID 11/22/18 [History Confirmed 03/01/19] Furosemide [Lasix] 40 mg PO DAILY 11/23/18 [History Confirmed 03/01/19] Cephalexin [Keflex] 500 mg PO Q12 #3 cap 11/27/18 [Rx Confirmed 03/01/19] PFSH Family History Father Cancer Lung CA Mother Cancer Sister Myocardial infarction Diabetes Heart disease Uncle CAD (coronary artery disease) Social History (Updated 03/06/19 @ 14:15 by Juju Winston MD) Smoking Status: Never smoker alcohol intake: never substance use type: does not use caffeine: No what type of physical activity do you participate in: none seatbelt use: always do you feel safe at home: Yes HPI HPI HPI: SHIRLEY DELAROSA, is a 68 M who presents to the office today for HPI HPI Surgical H&P: Yes HPI: SHIRLEY DELAROSA, is a 68 M who presents to the office today for bright red blood per rectum. Patient states for about the last year he has had bright red blood per rectum on the toilet paper with about every bowel movement patient states he has bowel meds about every other day. Patient does state that he does strain when he is on the toilet. Patient denies any abdominal pain/nausea/vomiting/heartburn. Patient states his last colonoscopy was about 10 years ago at [place] and was negative per the patient. Patient is scheduled to undergo bariatric surgery at [facility] hopefully in April 2019. Patient is unsure if he gets enough fiber daily. But he has been drinking about 64 ounces of water daily preoperatively for the bariatric surgery. ROS General General: Yes weight change and fatigue; no colon cancer, breast cancer or weakness HEENT HEENT: No difficulty swallowing, eye injury, eye surgery, swollen glands or hoarseness Endo Endocrine: Yes diabetes mellitus; no thyroid disease, thyroid cancer, Hair loss, heat intolerance or cold intolerance Skin Skin: No rash or changing moles Breast Breast: No left breast lump, right breast lump, nipple discharge, breast pain, abnormal mammogram, abnormal US or breast enlargement Musc Musculoskeletal: Yes back problems, arthritis and rheumatoid arthritis; no gout or joint pain Cardio Cardiovascular: Yes pacemaker, heart disease, atrial fibrillation and high blood pressure; no murmur, heart attack, heart stent, palpitations, shortness of breat with exertion or chest pain Psych Psychiatric: No depression, anxiety or hearing voices Resp Respiratory: Yes shortness of breath, Yes sleep apnea, Yes cough, Yes COPD, Yes asthma, No emphysema, No wheezing Gastro Gastrointestinal: No abdominal pain, No nausea or vomiting, No diarrhea, Yes constipation, Yes blood in stool, No acid reflux, Yes hemorrhoids, No ulcers, Yes gallbladder problem, No black,tarry stools Cristian Hematologic: Yes blood thinners, No blood disorders, No bleeding, No anemia, No blood clots Neuro Neurologic: No system reviewed and no additional complaints, except as docu, No as per HPI, No abnormal walking, No abnormal hearing, No abnormal movements, No abnormal speech, No behavioral changes, No burning sensations, No confusion, No seizure-like activity, No unsteadiness, No dizziness, No localized weakness, No frequent falls, No headache(s), No lack of coordination, No loss of vision, No memory loss, Yes numbness, No other visual disturbances, No radiating pain, No restless legs, No sensory deficit, No fainting, Yes tingling, No tremor(s), No weakness, No other Exam Const General: cooperative, comfortable, no acute distress Chest Breast Palpation: No nipple discharge Resp Effort & Inspection: normal respiratory effort Cardio Rate: regular rate Heart Sounds: no murmurs GI Inspection: non-distended, obesity Palpation: soft, no guarding, hernia (Umbilical, incarcerated chronically), nontender Other: ZAIDA: Small internal hemorrhoids on exam, no gross blood Assessment & Plan Problems 1. Blood per rectum K62.5 Plan Did also give the patient a list of high-fiber foods and recommend 30 g of fiber daily. I have discussed the above with the patient. I have offered the patient colonoscopy for evaluation. I have explained the risks/benefits of the procedure and described the procedure. I have discussed the risks with the patient, including but not limited to: infection, bleeding, perforation of the GI tract requiring emergency surgery, inability to complete the procedure, injury to any internal organs, complications of anesthesia, etc. - the patient understands and agrees to proceed. I have answered all the patient's questions to the patient's satisfaction and the patient has no further questions. The patient has been given instructions for the colon cleansing preparation. One day of clears, MiraLAX to collect split prep. Juju Winston M.D. Pager: [phone] [facility] [address] [place] [address], [address] [place] [address] Office: [phone] Plan Detail Goals Decrease spasm Improve ROM Decrease pain Barriers DDD Obesity Compression fx L3 Follow Up We will schedule colonoscopy Coding Level of Care Code Off vis,new,level 3 Diagnoses Blood per rectum K62.5 03/06/19 1416 <Electronically signed by Juju Burton am, MD> Date _ Juju Winston MD I have examined the patient the following changes are noted: Patient denies further bleeding per rectum
[2019-03-20 07:44] VITALS: BMI 49.1
[2019-03-25 06:30] VITALS: BP 109/58; PULSE 68; RESP 16; TEMP 36.9; O2SAT 97; BMI 49.5
[2019-03-25 06:30] LABS: Bedside Glucose 153 mg/dL (70-110)
[2019-03-25] MEDS: Lactated Ringers 1,000 ML 100 ML IV (06:40)
--- NOTE | 2019-03-25 07:25 | RAD_ITS ---
STUDY: X-RAY - LUMBAR SPINE REASON FOR EXAM: Male, 68 years old. L3-S1 RADIO FREQ ABLATION TECHNIQUE: For cone-down view(s) of the lumbar spine were obtained. COMPARISON: None FINDINGS: Intraoperative imaging provided for right L3 S1 radiofrequency ablation. RAD/Lumbar Spine 2 or 3 Views IMPRESSION: Intraoperative imaging provided for right L3-S1 radiofrequency ablation. Electronically Signed: Chandler Ruffin, at 12:18 EST , Service support ,
[2019-03-25] MEDS: Bupivacaine 0.25% 30 ML Vial (07:33)
[2019-03-25] MEDS: MethylPREDNISolone Acetate 80 MG/ML Vial (07:33)
[2019-03-25 07:55] VITALS: BP 109/58; BP 123/71; PULSE 67; RESP 18; TEMP 36.7; O2SAT 96
[2019-03-25 08:00] VITALS: BP 102/68; BP 109/58; PULSE 72; RESP 16; O2SAT 97
[2019-03-25 08:05] VITALS: BP 104/78; BP 109/58; PULSE 68; RESP 18; O2SAT 94
[2019-03-25 08:12] VITALS: BP 109/58; BP 109/89; PULSE 68; RESP 18; TEMP 36.5; O2SAT 100
[2019-03-25 08:28] VITALS: BP 109/58
--- NOTE | 2019-03-25 12:20 | PCM.OPRPT ---
Report of Operation Date of Procedure: 03/25/19 Description of Surgical Findings:: PROCEDURE: Right-sided radiofrequency ablation of the medial branch L3, L4, L5, S1 PREOPERATIVE DIAGNOSES: Lumbosacral spondylosis, lumbosacral degenerative disc disease, lumbar facet arthropathy POSTOPERATIVE DIAGNOSES: Lumbosacral spondylosis, lumbosacral degenerative disc disease, lumbar facet arthropathy ANESTHESIA: MAC COMPLICATIONS: None BLOOD LOSS: Minimal PROCEDURE IN DETAIL: History and physical today was reviewed. Risks and benefits of procedure explained. The patient understood, agreed to the procedure and informed consent was obtained. IV inserted per routine protocol. The patient was taken to the operating room, placed in the prone position with a pillow positioned underneath the abdomen. The right side of the lower back was prepped and draped in a sterile fashion using iodine x 3. Under fluoroscopy guidance, on an oblique view, the L3 through S1 vertebral bodies were visualized. The skin and subcutaneous tissue was anesthetized with approximately 10 mL of 1% lidocaine using a 25-gauge regular needle. Under direct visualization with fluoroscopy at approximately 25-degree angle, starting on the right L3, ending on the right S1 passing through the L4-L5 using a 20-gauge 15 cm with a 10 mm curved active tip radiofrequency ablation needle the needle passed through the skin. The tip of the needle was maneuvered and directed towards the superior and medial gutter of the transverse process at the vicinity of the medial branch. Once the tip of the needle was in contact with the bone, the needle pulled approximately 2 mm up the bone. The stylet of each needle was then removed. After negative aspiration of blood with CSF and confirmation of AP as well as oblique view, radiofrequency ablation probe was then inserted at each level. Impedance was then recorded at L3 to be 291, at L4 213, at L5 211, at S1 267 ohm. Motor-evoked potential was then initiated to 1.5 volt without any motor response at each corresponding level. The probe was then removed intact and a total of 6 mL preservative-free 1% lidocaine was injected in divided doses between those 4 levels after negative aspiration of blood with CSF. The radiofrequency ablation probe was then reinserted after confirmation of AP, oblique as well as lateral view. Radiofrequency ablation was then initiated to 80 degrees Celsius for 90 seconds at each level. Once concluded, the probe was then removed intact and a total of 6 mL of preservative-free 0.25% Marcaine with 40 mg Depo-Medrol was injected in divided doses between those 4 levels. The needles were then removed intact. The patient experienced no signs or symptoms of intrathecal, intravascular injection. The patient experienced no paraesthesia. The procedure was completed without any apparent difficulty, any complication. The patient appeared to tolerate well. Sensory as well as motor exam was unchanged from prior to procedure. ASSESSMENT AND PLAN: This is a 68-year-old Male with lumbosacral spondylosis, lumbosacral degenerative disc disease, lumbar facet arthropathy, status post right-sided radiofrequency ablation of the medial branch L3 through S1. The patient will continue his current medications. The patient will follow up in approximately 2 weeks for reevaluation.
== END 2019-03-25 08:35 | disposition home or self-care (01) ==
LOC: SDC 05:56 → AC 05:57
PROVIDERS: PCP Family Medicine; Referring Provider Anesthesiology Pain Medicine; Visit Provider Anesthesiology Pain Medicine
PROC: (CPT 64635; principal; 2019-03-25 07:15)
DX: M47.816 Spondylosis without myelopathy or radiculopathy, lumbar region (principal); M47.817 Spondylosis without myelopathy or radiculopathy, lumbosacral region; M47.814 Spondylosis without myelopathy or radiculopathy, thoracic region; M51.37 Other intervertebral disc degeneration, lumbosacral region; M54.17 Radiculopathy, lumbosacral region; M16.9 Osteoarthritis of hip, unspecified; M70.60 Trochanteric bursitis, unspecified hip; I10 Essential (primary) hypertension; J45.909 Unspecified asthma, uncomplicated; G47.30 Sleep apnea, unspecified; E66.9 Obesity, unspecified; Z68.42 Body mass index [BMI] 45.0-49.9, adult; Z79.01 Long term (current) use of anticoagulants; Z79.82 Long term (current) use of aspirin; Z79.4 Long term (current) use of insulin; Z79.1 Long term (current) use of non-steroidal anti-inflammatories (NSAID); Z79.891 Long term (current) use of opiate analgesic; Z79.899 Other long term (current) drug therapy; Z87.442 Personal history of urinary calculi; Z96.622 Presence of left artificial elbow joint; Z96.621 Presence of right artificial elbow joint; Z95.810 Presence of automatic (implantable) cardiac defibrillator
CPT/HCPCS: 01936; 64635; 64636 ×3; 72100; 76000; 82962; J7120

== ENCOUNTER → 2019-03-28 11:38 | Outpatient (CLI) | payer MEDICARE, SELFPAY ==
[2019-03-28 10:50] VITALS: BMI 49.0
[2019-03-28 12:41] LABS: AST(SGOT) 19 U/L (15-37); Alanine Aminotransfer ALT/SGPT 35 U/L (16-61); Albumin, Serum 3.7 g/dL (3.2-5.0); Alkaline Phosphatase 56 U/L (45-117); Bilirubin, Direct 0.38 mg/dL (0.00-0.30); Cholesterol 108 mg/dL (200); Globulin 3.9 g/dL (2.2-4.2); High Density Lipoprotein 27 mg/dL; Protein, Total 7.6 g/dL (6.4-8.2); Triglycerides 151 mg/dL; Very Low Density Lipoprotein 30 mg/dL (5-40)
== END ==
PROVIDERS: PCP Family Medicine; Visit Provider Internal Medicine Cardiovascular Disease
DX: E78.5 Hyperlipidemia, unspecified (principal); I25.10 Atherosclerotic heart disease of native coronary artery without angina pectoris
CPT/HCPCS: 36415; 80061; 80076

== ENCOUNTER → 2019-04-10 13:51 | Outpatient (CLI) | payer MEDICARE, MEDICAID, SELFPAY ==
[2019-03-28 10:50] VITALS: BMI 49.0
--- NOTE | 2019-04-10 13:52 | ECHOCS_ITS ---
Reason For Study: Afib/Flutter Procedure This was a 2D Doppler, Color Flow transthoracic echocardiogram. Technically difficult due to patient body habitus. Contrast injection performed. Exam performed in department. Left Ventricle Moderate concentric left ventricular hypertrophy. The estimated ejection fraction is 65 %. Stage 1 diastolic dysfunction. No regional wall motion abnormalities noted. Right Ventricle Normal size and thickness. ICD or pacer leads identified within the right ventricle. Normal systolic function. Atria The left atrium is severely enlarged. The right atrium is mildly enlarged. Normal atrial septum. Mitral Valve The mitral valve is structurally normal. No prolapse or stenosis seen. Tricuspid Valve Normal tricuspid valve. Unable to estimate RV systolic pressure due to insufficient tricuspid regurgitant envelope. Aortic Valve Trisinus/trileaflet aortic valve. Pulmonic Valve The pulmonic valve is not well visualized. Great Vessels Normal aortic root. Normal arch. Normal inferior vena cava. Inferior vena cava collapse with sniff. Pericardium/Pleural No pericardial effusion. Medication 22 gauge I.V. with prn adaptor inserted into left arm. Diluted definity 5ml given slow IV push to enhance endocardial definition. MMode/2D Measurements & Calculations LVIDd: 5.7 cm IVSd: 1.5 cm Ao root diam: 3.2 cm LVIDs: 3.8 cm LVPWd: 1.4 cm LA dimension: 5.4 cm FS: 33.9 % LAV(MOD-sp4): 118.2 ml LA A4 area: 31.2 cm2 RA A4 area: 21.7 cm2 Time Measurements MV dec time: 0.16 sec Doppler Measurements & Calculations MV E max karan: 90.0 cm/sec Lat Peak E' Karan: 7.0 cm/sec Med Peak E' Karan: 5.6 cm/sec MV A max karan: 44.1 cm/sec E/E' lat: 12.8 E/E' med: 16.2 MV E/A: 2.0 MV V2 max: 87.6 cm/sec MV P1/2t max karan: 85.3 cm/sec Ao V2 max: 116.6 cm/sec MV max P.1 mmHg MV P1/2t: 87.0 msec Ao max P.4 mmHg MV V2 mean: 44.9 cm/sec MV dec slope: 287.3 cm/sec2 Ao V2 mean: 84.7 cm/sec MV mean P.97 mmHg Ao mean P.1 mmHg MV V2 VTI: 26.0 cm MVA(P1/2t): 2.5 cm2 Ao V2 VTI: 22.9 cm LV V1 max: 91.3 cm/sec PA V2 max: 88.9 cm/sec LV V1 max P.3 mmHg LV V1 mean P.7 mmHg LV V1 mean: 61.6 cm/sec LV V1 VTI: 19.0 cm Interpretation Summary Moderate concentric left ventricular hypertrophy. The estimated ejection fraction is 65 %. Stage 1 diastolic dysfunction. The left atrium is severely enlarged. The right atrium is mildly enlarged. Unable to estimate RV systolic pressure due to insufficient tricuspid regurgitant envelope. Compared to echo report dated 03/20/2015, LV function has remained the same, pt now appears to be in NSR. The study was technically difficult. Contrast injection was performed. Ordering Physician: Mynor Taylor Referring Physician: Adithya Weaver Performed By: Osvaldo London RCS
== END ==
PROVIDERS: PCP Family Medicine; Referring Provider Internal Medicine Cardiovascular Disease; Visit Provider Internal Medicine Cardiovascular Disease
DX: Z98.890 Other specified postprocedural states (principal)
CPT/HCPCS: 93306; Q9957; A4216; C8929

== ENCOUNTER → 2019-04-17 13:26 | Outpatient (CLI) | payer MEDICARE, MEDICAID, SELFPAY ==
[2019-03-28 10:50] VITALS: BMI 49.0
[2019-04-16 07:58] VITALS: BMI 49.0
--- NOTE | 2019-04-17 13:27 | STEWCON_ITS ---
Reason For Study: afib/flutter Stress Results Protocol: Dobtuamine Stress Echo Maximum Predicted HR: 152 bpm Target HR: 129 bpm % Maximum Predicted HR: 84 % DurationHeart Rate Stage (mm:ss) (bpm) BP Dose Comment baseline 63 149/79 stage 1 3:50 64 145/7610.00 stage 2 5:06 106 157/7820.00 stage 3 3:00 120 133/6930.00 stage4 5:42 127 118/6740.000.25 mg atropine given recovery 67 135/62 pt denies any chest discomfort during the test Stress Duration: 17:38 mm:ss Maximum Stress HR: 127 bpm Baseline Echocardiogram Findings The estimated ejection fraction is 65 %. Normal size and thickness. Stress Echo Wall motion Data Resting WM Intermediate WM Stress WM Resting Wall Motion Wall Motion Stress No regional wall motion No regional wall motion abnormalities noted. abnormalities noted. EKG Data The baseline ECG displays normal sinus rhythm. The patient was titrated from 10 mcg to a maximum of 40 mcg of dobutamine during the stress. The maximum heart rate attained was 130 beats per minute. This was 85% of maximum predicted heart rate. During dobutamine infusion, there were no ST or T wave changes noted to suggest ischemia. No clinical angina was noted. Interpretation Summary The estimated ejection fraction is 65 %. Normal, adequate, dobutamine echocardiogram. Negative for ischemia by EKG and echocardiographic criteria. No anginal symptoms noted. Rare PVC and PAC noted. Test terminated due to the attainment of target heart rate. Final LVEF is 75%. Decreased sensitivity due to baseline left bundle branch block intraventricular conduction delay, and poor echo windows requiring Definity agent. Patient tolerated procedure well. No complications. The study was technically difficult. Contrast injection was performed. Ordering Physician: Mynor Taylor Referring Physician: Mynor Taylor Performed By: Vandana Amos, KURTIS, RVT
== END ==
PROVIDERS: PCP Family Medicine; Referring Provider Internal Medicine Cardiovascular Disease; Visit Provider Internal Medicine Cardiovascular Disease
DX: I48.19 Other persistent atrial fibrillation (principal); I42.8 Other cardiomyopathies; G47.33 Obstructive sleep apnea (adult) (pediatric)
CPT/HCPCS: 93017; 93350; J7040; Q9957; A4216; C8928

== ENCOUNTER → 2019-06-10 11:28 | Outpatient (CLI) | payer MEDICARE, MEDICAID, SELFPAY ==
[2019-04-16 07:58] VITALS: BMI 49.0
[2019-06-10 12:51] VITALS: PULSE 102; PULSE 108; PULSE 80; PULSE 90; PULSE 92; PULSE 98; PULSE 99; O2SAT 93; O2SAT 94; O2SAT 95
--- NOTE | 2019-06-13 11:25 | PCM.PSN.6M ---
PSN 6 Minute Walk Test - 6 Minute Walk Test 6 Minute Walk Test: 6 Minute Walk Test PSN:6-Minute Walk Test Start: 06/10/19 12:51 Freq: Status: Active Protocol: RESP.6MINW Document 06/10/19 12:51 KAREN (Rec: 06/10/19 12:53 KAREN [id number]) 6 Minute Walk Test Date Performed 06/10/19 Time Performed 12:00 Height 5 ft 9 in Weight: 330 lb Weight in Pounds 330.[address]: Eri Corral Assistive device used: None Pre-test Oxygen Delivery Method Room Air Pulse Ox (%) 95 Pulse Rate (60-100 beats/min) 80 Dyspnea Hernandez Scale (0-10) 0 Exertion Hernandez Scale (6-20) 6 1st minute Oxygen Delivery Method Room Air Pulse Ox (%) 95 Pulse Rate (60-100 beats/min) 92 2nd minute Oxygen Delivery Method Room Air Pulse Ox (%) 94 Pulse Rate (60-100 beats/min) 90 3rd minute Oxygen Delivery Method Room Air Pulse Ox (%) 94 Pulse Rate (60-100 beats/min) 102 H 4th minute Oxygen Delivery Method Room Air Pulse Ox (%) 94 Pulse Rate (60-100 beats/min) 99 5th minute Oxygen Delivery Method Room Air Pulse Ox (%) 93 Pulse Rate (60-100 beats/min) 98 6th minute Oxygen Delivery Method Room Air Pulse Ox (%) 93 Pulse Rate (60-100 beats/min) 108 H Dyspnea Hernandez Scale (0-10) 2 Exertion Hernandez Scale (6-20) 14 Post-test Oxygen Delivery Method Room Air Pulse Ox (%) 94 Pulse Rate (60-100 beats/min) 80 Full Laps Walked 18 Partial Lap, Number of Tiles Walked 17 Total Distance Walked (ft) 1079 - Interpretation Interpretation: The patient ambulated 1079 feet over the course of 6 minutes beginning on room air without assistive devices or breaks. Pretesting oxygen saturation was noted to be 95% on room air. With ambulation, the radha oxygen saturation was 93%. There was no significant exertional oxygen desaturation. - Recommendations Recommendations: There is no indication for the use of supplemental oxygen at this time.
== END ==
PROVIDERS: PCP Family Medicine; Referring Provider Nurse Practitioner Acute Care; Visit Provider Nurse Practitioner Acute Care
DX: J44.9 Chronic obstructive pulmonary disease, unspecified (principal)
CPT/HCPCS: 94618

== ENCOUNTER → 2019-06-13 08:48 | Outpatient (CLI) | payer MEDICARE, MEDICAID, SELFPAY ==
[2019-04-16 07:58] VITALS: BMI 49.0
--- NOTE | 2019-06-14 11:29 | PFT ---
INTRODUCTION: The patient is a 68-year-old male that presents for pulmonary function studies secondary to a diagnosis of COPD. Respiratory therapy reports good patient effort. Bronchodilators were used during testing. INTERPRETATION: Forced expiration spirometry demonstrates no evidence of a large airways obstructive ventilatory defect. There was no significant response to aerosolized bronchodilators. Spirograms are of good quality and plateau normally. Body plethysmography was performed and reveals lung volumes to be within normal limits. Diffusing capacity by single breath CO is reduced at 60% of predicted. IMPRESSION: Isolated mild reduction in diffusing capacity, which appears stable compared to previous pulmonary function studies.
== END ==
PROVIDERS: PCP Family Medicine; Referring Provider Nurse Practitioner Acute Care; Visit Provider Nurse Practitioner Acute Care
DX: J44.9 Chronic obstructive pulmonary disease, unspecified (principal)
CPT/HCPCS: 94060; 94726; 94729

== ENCOUNTER 2019-07-22 06:32 | Day surgery (SDC) | payer MEDICARE, MEDICAID, SELFPAY ==
[2019-06-18 10:20] VITALS: BMI 51.5
[2019-07-22] VITALS (7 sets, daily range): BP systolic 130–170; BP diastolic 79–96; PULSE 79–81; RESP 20; TEMP 36–36.7; O2SAT 93–98; BMI 49.4
[2019-07-22] MEDS: Lactated Ringers 1,000 ML 100 ML IV (07:18)
[2019-07-22 07:25] LABS: Bedside Glucose 155 mg/dL (70-110)
--- NOTE | 2019-07-22 07:30 | RAD_ITS ---
PROCEDURE: Left L3-S1 radiofrequency ablation. DATE OF EXAMINATION: July 22, 2019. INDICATION: Male, 68 years old. Chronic left-sided back pain. FLUOROSCOPY TIME (if supplied): (28 seconds) minutes/seconds. 9 intraoperative views were obtained. Intraoperative imaging provided for left L3-S1 radiofrequency ablation. RAD/L/S Spine Min 4 Views IMPRESSION: Intraoperative imaging provided for left L3-S1 radiofrequency ablation. Electronically Signed: Chandler Ruffin, at 13:55 EDT , Service support ,
[2019-07-22] MEDS: MethylPREDNISolone Acetate 80 MG/ML Vial (08:11)
[2019-07-22] MEDS: Bupivacaine 0.25% 30 ML Vial (08:11)
--- NOTE | 2019-07-22 09:14 | PCM.OPRPT ---
Report of Operation Date of Procedure: 07/22/19 Description of Surgical Findings:: PREOPERATIVE DIAGNOSIS: Lumbosacral spondylosis, lumbosacral degenerative disc disease, lumbar facet arthropathy POSTOPERATIVE DIAGNOSIS: Lumbosacral spondylosis, lumbosacral degenerative disc disease, lumbar facet arthropathy PROCEDURE PERFORMED: Left-sided radiofrequency ablation of the medial branch at L3, L4, L5, and S1. ANESTHESIA: MAC. BLOOD LOSS: Minimal. COMPLICATIONS: None. DESCRIPTION OF PROCEDURE: History and physical of today was reviewed. Risks and benefits of the procedure were explained. The patient understood and agreed to proceed. Informed consent was obtained. IV inserted per routine protocol. The patient was taken to the operating room and placed in the prone position with a pillow positioned underneath the abdomen. The left side of his lower back was prepped and draped in a sterile fashion using iodine x3. Under fluoroscopy guidance in an oblique view, the L3 through S1 vertebral bodies were visualized. The skin and subcutaneous tissue was anesthetized with approximately 10 mL of 1% lidocaine using a 25-gauge regular needle. Under direct visualization on fluoroscopy at approximately 25-degree angle, starting on the left L3, ending on the left S1, passing through the L4 and L5, using a 20-gauge 15-cm with a 10-mm curved active-tip radiofrequency ablation needle, the needle was passed through the skin. The tip of the needle was maneuvered and directed towards the superior medial gutter of the transverse process at the vicinity of the medial branch. Once the tip of the needle was in contact with the bone, the needle was pulled approximately 2 mm off the bone. The stylette of each needle was then removed. After negative aspiration of blood or CSF and confirmation on AP, oblique as well as lateral view, the radiofrequency ablation probe was then inserted at each level. Impedance was then recorded at L3 to be 320 ohm, at L4 to be 215 ohm, at L5 to be 295 ohm, and at S1 to be 204 ohm. Motor evoked potential was then initiated to 1.5 volt without any motor response at each corresponding level. The probe was then removed intact and a total of 6 mL of preservative-free 1% lidocaine was injected in divided doses between those four levels after negative aspiration of blood or CSF. The radiofrequency ablation probe was then reinserted. After confirmation on AP, oblique as well as lateral view, radiofrequency ablation was then initiated to 80 degree Celsius for 90 second at each level. Once concluded, the probe was then removed intact. A total of 6 mL of preservative-free 0.25% Marcaine with 40 mg of Depo-Medrol was injected in divided doses between those four levels. The needles were then removed intact. The patient experienced no sign or symptoms of intrathecal or intravascular injection. The patient experienced no paresthesia. The procedure was completed without any apparent difficulty or any complications. The patient appeared to tolerate it well. Sensory as well as motor exam was unchanged from prior to the procedure. ASSESSMENT AND PLAN: This is a 68-year-old male with lumbosacral spondylosis, lumbosacral degenerative disc disease, lumbar facet arthropathy status post right-sided lumbar radiofrequency ablation of the medial branch L3-S1, patient will continue his current medications, patient will follow approximately 2 weeks for reevaluation.
== END 2019-07-22 09:08 | disposition home or self-care (01) ==
LOC: SDC 06:32 → AC 06:34
PROVIDERS: PCP Family Medicine; Referring Provider Anesthesiology Pain Medicine; Visit Provider Anesthesiology Pain Medicine
DX: M47.27 Other spondylosis with radiculopathy, lumbosacral region (principal); M51.17 Intervertebral disc disorders with radiculopathy, lumbosacral region; M47.816 Spondylosis without myelopathy or radiculopathy, lumbar region; E11.9 Type 2 diabetes mellitus without complications; I10 Essential (primary) hypertension; E78.00 Pure hypercholesterolemia, unspecified; J45.909 Unspecified asthma, uncomplicated; G47.30 Sleep apnea, unspecified; K21.9 Gastro-esophageal reflux disease without esophagitis; Z79.01 Long term (current) use of anticoagulants; Z79.82 Long term (current) use of aspirin; Z79.891 Long term (current) use of opiate analgesic; Z79.899 Other long term (current) drug therapy; Z95.810 Presence of automatic (implantable) cardiac defibrillator; Z96.622 Presence of left artificial elbow joint; Z96.621 Presence of right artificial elbow joint
CPT/HCPCS: 64635; 64636 ×2; 72110; 76000; 82962; J7120

== ENCOUNTER → 2019-07-31 13:24 | Outpatient (CLI) | payer MEDICARE, MEDICAID, SELFPAY ==
[2019-07-22 07:03] VITALS: BMI 49.4
[2019-07-31 15:43] LABS: Absolute Lymphocyte Count 1.91 X10^3/uL (0.83-4.51); Absolute Neutrophil Count 8.7 X10^3/uL (2.0-7.7); Basophil# 0.07 X10^3/uL; Basophil% 0.6 % (0-1); Eosinophil# 0.34 X10^3/uL; Eosinophils% 2.8 % (0-5); Hematocrit 47.7 % (40-54); Hemoglobin 15.4 g/dL (13.0-16.5); Lymphocyte # 1.91 X10^3/ul (4.0); Lymphocyte % 15.6 % (19-41); Mean Corp Hgb Conc 32.3 g/dL (32-36); Mean Corpuscular Hgb 27.7 pg (27.0-32.0); Mean Corpuscular Volume 85.8 fL (80-94); Mean Platelet Vol. 9.9 fl (6.2-12.0); Monocyte# 1.21 X10^3/uL; Monocyte% 9.9 % (0-10); NRBC Flagged by Analyzer 0 % (0-5); Neutrophil # 8.66 X10^3/uL (2.7-7.7); Neutrophil % 70.5 % (47-70); Platelet Count 181 K/mm3 (150-450); RBC Distribution Width CV 15.8 % (11.6-14.6); RBC Distribution Width SD 46.7 fl (35.1-43.9); Red Blood Count 5.56 M/mm3 (4.6-6.2); White Blood Count 12.3 K/mm3 (4.4-11.0)
[2019-07-31 16:41] LABS: ALB/GLOB Ratio 0.9 RATIO (0.9-2.4); AST(SGOT) 23 U/L (15-37); Alanine Aminotransfer ALT/SGPT 48 U/L (16-61); Albumin, Serum 3.4 g/dL (3.2-5.0); Alkaline Phosphatase 64 U/L (45-117); Anion Gap 9 (5-15); BUN 31 mg/dL (7-18); Calcium,Total 8.9 mg/dL (8.5-10.1); Chloride 106 mmol/L (98-107); Creatinine, Serum 1.72 mg/dL (0.70-1.30); EST Glomerular Filtration Rate 42 mL/min (>60); Est Glom Filt Rate - Afr Amer 51 mL/min (>60); Globulin 3.9 g/dL (2.2-4.2); Glucose 207 mg/dL (74-106); Magnesium 2.1 mg/dL (1.6-2.6); Potassium 4.1 mmol/L (3.5-5.1); Protein, Total 7.3 g/dL (6.4-8.2); Sodium Level 138 mmol/L (136-145); Thyroid Stim Hormone (TSH) 1.99 uIU/mL (0.358-3.74)
== END ==
PROVIDERS: PCP Family Medicine; Referring Provider Family Medicine; Visit Provider Family Medicine
DX: N39.0 Urinary tract infection, site not specified (principal); J45.901 Unspecified asthma with (acute) exacerbation; R25.2 Cramp and spasm
CPT/HCPCS: 36415; 80053; 83735; 84443; 85025; 87086; 87088

== ENCOUNTER → 2019-08-28 10:24 | Outpatient (CLI) | payer MEDICARE, MEDICAID, SELFPAY ==
[2019-07-22 07:03] VITALS: BMI 49.4
== END ==
PROVIDERS: PCP Family Medicine; Referring Provider Family Medicine; Visit Provider Family Medicine
DX: R19.7 Diarrhea, unspecified (principal)
CPT/HCPCS: 87635; G2023; U0003

== ENCOUNTER 2019-09-26 15:00 | Emergency (ER) | payer MEDICARE, MEDICAID, SELFPAY ==
[2019-09-17 14:58] VITALS: BMI 46.2
[2019-09-26 15:02] VITALS: BP 138/93; PULSE 80; RESP 17; TEMP 36.5; O2SAT 96; BMI 45.6
--- NOTE | 2019-09-26 16:08 | RAD_ITS ---
STUDY: X-RAY CHEST REASON FOR EXAM: Male, 68 years old. Lightheaded, dizziness. Left sided chest pain after a fall. TECHNIQUE: PA and lateral views of the chest. COMPARISON: December 27, 2018. FINDINGS: Dual chamber pacemaker device on the left. There are monitoring devices. There are lower lung linear increased opacities. There is no demonstrated pleural abnormality. There is mild cardiac enlargement. Normal mediastinum and fernando. Normal visualized pulmonary arteries. Normal visualized aortic arch and descending thoracic aorta. There is demineralization of the osseous structures. There are diffuse degenerative changes of the visualized thoracic spine. Normal visualized ribs, clavicles, and shoulders. There is no demonstrated abnormality of the visualized soft tissue structures of the upper abdomen. RAD/Chest PA and Lateral IMPRESSION: Interstitial edema or infiltrates. Electronically Signed: Go Choudhury MD at 17:31 EDT , Service support ,
--- NOTE | 2019-09-26 16:08 | EKG12_ITS ---
Test Reason : Blood Pressure : / mmHG Vent. Rate : 080 BPM Atrial Rate : 091 BPM P-R Int : 000 ms QRS Dur : 166 ms QT Int : 472 ms P-R-T Axes : 000 223 035 degrees QTc Int : 544 ms Ventricular-paced rhythm Biventricular pacemaker detected Abnormal ECG Confirmed by KRYSTAL GOMEZ, KENNY ([id number]), scientific publications editor GLENNA MCFARLANE ([id number]) on 10/04/2019 11:18:25 A M Referred By: MARGARET Confirmed By:MERLY RICE MD
[2019-09-26 16:32] LABS: Absolute Lymphocyte Count 1.83 X10^3/uL (0.83-4.51); Basophil# 0.05 X10^3/uL; Basophil% 0.6 % (0-1); Eosinophil# 0.41 X10^3/uL; Hematocrit 43.5 % (40-54); Hemoglobin 14.1 g/dL (13.0-16.5); Lymphocyte # 1.83 X10^3/ul (4.0); Lymphocyte % 22.3 % (19-41); Mean Corp Hgb Conc 32.4 g/dL (32-36); Mean Corpuscular Hgb 28.1 pg (27.0-32.0); Mean Corpuscular Volume 86.7 fL (80-94); Mean Platelet Vol. 10.7 fl (6.2-12.0); Monocyte# 0.84 X10^3/uL; Monocyte% 10.2 % (0-10); NRBC Flagged by Analyzer 0 % (0-5); Neutrophil # 5.03 X10^3/uL (2.7-7.7); Neutrophil % 61.3 % (47-70); Platelet Count 171 K/mm3 (150-450); RBC Distribution Width CV 17.2 % (11.6-14.6); RBC Distribution Width SD 52.4 fl (35.1-43.9); Red Blood Count 5.02 M/mm3 (4.6-6.2); White Blood Count 8.2 K/mm3 (4.4-11.0)
--- NOTE | 2019-09-26 16:38 | ED.VIS.GEN ---
History of Present Illness Chief Complaint: General Illness Detail of Chief Complaint: Lightheaded, off-balance, jaundice Informant: Patient, Family Onset: Days - 5 days Context: Gradual Onset Timing: Waxes and wanes Current Severity: Mild Maximum Severity: Moderate Narrative: Patient presents with intermittent lightheadedness and feeling off balance. As an example he states he walked around his home yesterday. When he was coming back in the house he reached to close the door and lost his balance. He states he could not get his feet underneath him and he fell, striking his left ribs. He states he is been having trouble with intermittent lightheadedness. Today others thought his skin looks slightly yellow in color. Patient had gastric bypass surgery in late August at [facility]. reports he has lost 20 pounds since September 02. - Past Medical History (1) Asthma Status: Chronic (2) Atherosclerosis of coronary artery of [place] heart without angina pectoris Status: Chronic (3) Cardiomyopathy, idiopathic Status: Chronic (4) Diabetes type 2, controlled Status: Chronic (5) HTN (hypertension), benign Status: Chronic (6) History of nephrolithiasis Status: Chronic (7) Hyperlipidemia Status: Chronic (8) ARMANDO (obstructive sleep apnea) Status: Chronic Comment: 22/12 cm of water, backup rate of 16 (original order) (9) Persistent atrial fibrillation Status: Chronic (10) Hx of cholecystectomy Status: Resolved (11) Presence of biventricular implantable cardioverter-defibrillator (ICD) Status: Resolved Comment: Gen change 12/20/[address] Zayas Past Medical History - Allergies and Home Meds Allergies/Adverse Reactions: Allergies moxifloxacin HCl [From Avelox] Allergy (Verified 09/26/19 15:02) Hives Primary Care Physician: Adithya Weaver MD [Primary Care Provider] - Prior records reviewed: Yes Surgical History: cholecystectomy, pacemaker implantation Lives: Spouse/ Significant Other Smoking Status: Never smoker Review of Systems General: Denies: Chills, Fever Eyes: Denies: Visual changes - bilaterally ENT: Denies: Bilateral ear pain Cardiovascular: Reports: Chest pain - Left rib pain from recent trauma Respiratory: Denies: Dyspnea, Cough Gastrointestinal: Denies: Abdominal pain, Nausea, Vomiting, Diarrhea Genitourinary: Denies: Dysuria Musculoskeletal: Denies: Swelling, Extremity Pain Skin: Denies: Rash, Abscess Hematologic: Reports: Easy bruising - Secondary to Eliquis Allergy: Denies: Uticaria Physical Exam Vital Signs/Narrative: Vital Signs Temp Pulse Resp BP Pulse Ox 09/26/19 15:02 97.7 F L 80 17 138/93 H 96 Inital Vital Signs reviewed: Yes General: Well nourished, Well developed Head: Normocephalic Eyes: Perrl, EOMI. Negative for: Scleral icterus ENT: Moist mucous membranes Cardiovascular: Regular rate, Regular rhythm Respiratory: No distress, CTA bilaterally, - - Minimal tenderness to the left lateral ribs. No overlying abrasion or ecchymosis. No crepitus. Abdomen: Soft, Nontender, - - Healing surgical wounds noted without sign of infection. Extremities: Nontender Skin: Normal color Neurological: Alert, Oriented x3 Psychological: Normal affect Diagnostic/Tx/Re-eval Impressions Chest X-Ray 09/26/19 16:08 IMPRESSION: Interstitial edema or infiltrates. Electronically Signed: Go Choudhury MD at 17:31 EDT , Service support , Abdomen/Pelvis CT 09/26/19 18:28 IMPRESSION: Hepatosplenomegaly. Prior cholecystectomy. No biliary dilatation. Colonic diverticulosis. Lower lung atelectasis. No solid organ injury. No acute fracture. Chronic L3 compression fracture. Stable abdominal wall hernia containing fat. Electronically Signed: Go Choudhury MD at 19:54 EDT , Service support , 09/26/19 16:08 Chest PA and Lateral [RAD] Stat 09/26/19 18:28 Abdomen/Pelvis W IV Cont ONLY [CT] Stat Laboratory Results 09/26/19 09/26/19 09/26/19 16:23 16:23 16:23 WBC 8.2 RBC 5.02 Hgb 14.1 Hct 43.5 MCV 86.7 MCH 28.1 MCHC 32.4 RDW Std Deviation 52.4 H RDW Coeff of Diana 17.2 H Plt Count 171 MPV 10.7 Immature Gran % (Auto) 0.600 Neut % (Auto) 61.3 Lymph % (Auto) 22.3 Crosby % (Auto) 10.2 H Eos % (Auto) 5.0 Baso % (Auto) 0.6 Absolute Neuts (auto) 5.0 Absolute Lymphs (auto) 1.83 Nucleated RBC % 0 PT 17.0 H INR 1.4 APTT 33.6 Sodium 142 Potassium 4.1 Chloride 108 H Carbon Dioxide 28.0 Anion Gap 6 BUN 22 H Creatinine 1.45 H Estim Creat Clear Calc 48.76 Est GFR (MDRD) Af Amer 62 Est GFR (MDRD) Non-Af 51 L BUN/Creatinine Ratio 15.2 Glucose 120 H Calcium 8.9 Total Bilirubin 7.20 H Direct Bilirubin AST 32 ALT 40 Alkaline Phosphatase 61 Total Protein 7.6 Albumin 3.9 Globulin 3.7 Albumin/Globulin Ratio 1.1 Lipase Urine Color Urine Clarity Urine pH Ur Specific [place] Urine Protein Urine Glucose (UA) Urine Ketones Urine Occult Blood Urine Nitrite Urine Bilirubin Urine Urobilinogen Ur Leukocyte Esterase Urine RBC Urine WBC Ur Squamous Epith Cells Urine Bacteria Urine Mucus POC Glucose 09/26/19 09/26/19 09/26/19 16:23 17:00 19:40 WBC RBC Hgb Hct MCV MCH MCHC RDW Std Deviation RDW Coeff of Diana Plt Count MPV Immature Gran % (Auto) Neut % (Auto) Lymph % (Auto) Crosby % (Auto) Eos % (Auto) Baso % (Auto) Absolute Neuts (auto) Absolute Lymphs (auto) Nucleated RBC % PT INR APTT Sodium Potassium Chloride Carbon Dioxide Anion Gap BUN Creatinine Estim Creat Clear Calc Est GFR (MDRD) Af Amer Est GFR (MDRD) Non-Af BUN/Creatinine Ratio Glucose Calcium Total Bilirubin Direct Bilirubin 0.48 H AST ALT Alkaline Phosphatase Total Protein Albumin Globulin Albumin/Globulin Ratio Lipase 91 Urine Color Yellow Urine Clarity Clear Urine pH 5.0 Ur Specific [place] 1.025 Urine Protein 30 H Urine Glucose (UA) Normal Urine Ketones 5 H Urine Occult Blood Negative Urine Nitrite Negative Urine Bilirubin 1 H Urine Urobilinogen 1 H Ur Leukocyte Esterase Negative Urine RBC 0 SEEN Urine WBC 0-5 SEEN Ur Squamous Epith Cells 0 SEEN Urine Bacteria 0 SEEN Urine Mucus 1+ POC Glucose 126 H - EKG Initial EKG Interpretation: - - Paced at 80 with no acute ischemia. - Medical Decision Making Review of labs patient's bilirubin is noted to be elevated. When compared to prior values he has had periods over the last couple years where he will intermittently have an elevated bilirubin, and then it comes back down to normal within a couple days. The remainder of his LFTs are all normal. His gallbladder is already out. CT of the abdomen and pelvis is unremarkable. I did speak with Dr. Waters, covering for the patient's PCP. She will ensure the patient has repeat labs drawn early next week. Patient was given return instructions. He already has follow-up appointment scheduled with his bariatric surgeon in [place]. ED Disposition - Plan for ED Patient: Disposition: Home or Assisted Living Diagnosis: Lightheadedness, Elevated bilirubin Instructions: ED Dizziness [facility] Referrals: Adithya Weaver MD [Primary Care Provider] - 3-5 Days Additional Instructions: As discussed, have your labs rechecked early next week.
[2019-09-26 16:41] LABS: International Normalized Ratio 1.4
[2019-09-26 16:42] LABS: Partial Thromboplast Time 33.6 Seconds (24.1-36.2)
[2019-09-26 16:43] VITALS: O2SAT 97
[2019-09-26 16:45] VITALS: BP 116/82; PULSE 80; RESP 21; O2SAT 96
[2019-09-26 16:47] LABS: ALB/GLOB Ratio 1.1 RATIO (0.9-2.4); AST(SGOT) 32 U/L (15-37); Alanine Aminotransfer ALT/SGPT 40 U/L (16-61); Albumin, Serum 3.9 g/dL (3.2-5.0); Alkaline Phosphatase 61 U/L (45-117); Anion Gap 6 (5-15); BUN 22 mg/dL (7-18); BUN/Creat Ratio 15.2 RATIO (10-20); Calcium,Total 8.9 mg/dL (8.5-10.1); Chloride 108 mmol/L (98-107); Creatinine, Serum 1.45 mg/dL (0.70-1.30); EST Glomerular Filtration Rate 51 mL/min (>60); Est Glom Filt Rate - Afr Amer 62 mL/min (>60); Estimated Creatinine Clearance 48.76 ml/min; Globulin 3.7 g/dL (2.2-4.2); Glucose 120 mg/dL (74-106); Potassium 4.1 mmol/L (3.5-5.1); Protein, Total 7.6 g/dL (6.4-8.2); Sodium Level 142 mmol/L (136-145)
[2019-09-26] MEDS: 0.9% Normal Saline 1,000 ML 150 ML IV (17:02)
[2019-09-26 17:05] LABS: Bedside Glucose 126 mg/dL (70-110)
[2019-09-26 18:00] VITALS: BP 129/104; PULSE 80; RESP 14
[2019-09-26 18:22] LABS: Bilirubin, Direct 0.48 mg/dL (0.00-0.30); Lipase 91 U/L (73-393)
--- NOTE | 2019-09-26 18:28 | CT_ITS ---
STUDY: CT ABDOMEN AND PELVIS WITH CONTRAST REASON FOR EXAM: Male, 68 years old. FALL LAST NIGHT, LEFT SIDED PAIN,ELEVATED BILIRUBIN, GASTRIC BYPASS 08/2019, JAUNDICE, WEAKNESS RADIATION DOSAGE (If Supplied By Facility): CTDIvol = ( 18.74 ) mGy, DLP = ( 1272.14 ) mGycm TECHNIQUE: Transaxial images were obtained from the dome of the diaphragm to the symphysis pubis without oral contrast. IV 100mL Isovue-370 was administered. Sagittal and coronal images were reconstructed. Individualized dose optimization techniques were used for this CT. COMPARISON: November 18, 2017 FINDINGS: There is lower lung atelectasis. There are pacemaker wires in the heart. There is hepatomegaly with diffuse hepatic enlargement. There are surgical clips in the gallbladder fossa consistent with a prior cholecystectomy. There is mild splenomegaly. Normal pancreas. Normal bilateral adrenal glands. Normal right kidney. Normal left kidney. There is postoperative change of the stomach. Normal small intestine. There are multiple colonic diverticula consistent with diverticulosis. The appendix is visualized and appears normal. Normal abdominal aorta. Normal inferior vena cava. Normal retroperitoneum. Normal urinary bladder. There is a large prostate. There is no free fluid in the abdomen or pelvis. There is a 7.6 cm umbilical hernia containing fat. There is degenerative change of the spine. There is chronic L3 compression fracture. CT/Abdomen/Pelvis W IV Cont ONLY IMPRESSION: Hepatosplenomegaly. Prior cholecystectomy. No biliary dilatation. Colonic diverticulosis. Lower lung atelectasis. No solid organ injury. No acute fracture. Chronic L3 compression fracture. Stable abdominal wall hernia containing fat. Electronically Signed: Go Choudhury MD at 19:54 EDT , Service support ,
[2019-09-26 19:51] LABS: Bacteria 0 SEEN /hpf (None Seen); Color, Urine Yellow (Yellow); Glucose, Dipstick Normal (Normal); Ketone-Dipstick 5 mg/dl (Negative); Leukocyte Esterase-Dipstick Negative /ul (Negative); Nitrite-Dipstick Negative (Negative); Occult Blood-Urine Negative /ul (Negative); Protein-Dipstick 30 mg/dl (Negative); Red Blood Cells-Urine 0 SEEN /hpf (0-5); Specific Gravity, Urine 1.025 (1.002-1.030); Squamous Epithelial Cells - UA 0 SEEN /hpf (0-5); Urine Clarity Clear (Clear); Urine Urobilinogen 1 mg/dl (Normal)
[2019-09-26 20:00] LABS: Urine Bilirubin Dipstick 1 mg/dL (Negative)
[2019-09-26 20:22] VITALS: BP 119/86; PULSE 80; RESP 18; O2SAT 98
[2019-09-26 20:23] LABS: Mucous, Urine 1+ /hpf (<or=2+); White Blood Cells 0-5 SEEN /hpf (0-5)
[2019-09-26 21:09] VITALS: BP 115/89; PULSE 81; RESP 20; O2SAT 100
== END 2019-09-26 21:25 | disposition home or self-care (01) ==
PROVIDERS: Emergency Provider Emergency Medicine; PCP Family Medicine
DX: R42 Dizziness and giddiness (principal); R17 Unspecified jaundice; S29.9XXA Unspecified injury of thorax, initial encounter; W01.10XA Fall on same level from slipping, tripping and stumbling with subsequent striking against unspecified object, initial encounter; Y93.9 Activity, unspecified; Y92.9 Unspecified place or not applicable; Y99.9 Unspecified external cause status; I25.10 Atherosclerotic heart disease of native coronary artery without angina pectoris; I48.19 Other persistent atrial fibrillation; I42.9 Cardiomyopathy, unspecified; E11.9 Type 2 diabetes mellitus without complications; I10 Essential (primary) hypertension; E78.5 Hyperlipidemia, unspecified; G47.33 Obstructive sleep apnea (adult) (pediatric); J45.909 Unspecified asthma, uncomplicated; Z79.01 Long term (current) use of anticoagulants; Z79.4 Long term (current) use of insulin; Z79.899 Other long term (current) drug therapy; Z87.442 Personal history of urinary calculi; Z95.810 Presence of automatic (implantable) cardiac defibrillator; Z90.49 Acquired absence of other specified parts of digestive tract; Z98.84 Bariatric surgery status
CPT/HCPCS: 71046; 74177; 80053; 81001; 82248; 82962; 83690; 85025; 85610; 85730; 93005; 96360; 96361; 99284; J7030; Q9967

== ENCOUNTER → 2019-12-09 22:02 | Outpatient (CLI) | payer MEDICARE, MEDICAID, SELFPAY ==
[2019-11-18 15:15] VITALS: BMI 44.3
== END ==
PROVIDERS: PCP Family Medicine; Referring Provider Psychiatry & Neurology Sleep Medicine; Visit Provider Psychiatry & Neurology Sleep Medicine
DX: G47.33 Obstructive sleep apnea (adult) (pediatric) (principal)
CPT/HCPCS: 95811

== ENCOUNTER → 2020-05-12 16:20 | Outpatient (CLI) | payer MEDICARE, SELFPAY ==
[2020-05-12 18:33] LABS: ALB/GLOB Ratio 0.8 RATIO (0.9-2.4); AST(SGOT) 9 U/L (15-37); Alanine Aminotransfer ALT/SGPT 19 U/L (16-61); Albumin, Serum 3.4 g/dL (3.2-5.0); Alkaline Phosphatase 68 U/L (45-117); Anion Gap 4 (5-15); BUN 16 mg/dL (7-18); BUN/Creat Ratio 12.7 RATIO (10-20); Calcium,Total 9.2 mg/dL (8.5-10.1); Chloride 107 mmol/L (98-107); Creatinine, Serum 1.26 mg/dL (0.70-1.30); EST Glomerular Filtration Rate 60 mL/min (>60); Est Glom Filt Rate - Afr Amer 73 mL/min (>60); Glucose 109 mg/dL (74-106); Potassium 3.8 mmol/L (3.5-5.1); Protein, Total 7.4 g/dL (6.4-8.2); Sodium Level 140 mmol/L (136-145); Uric Acid 6.6 mg/dL (3.5-7.2)
== END ==
PROVIDERS: PCP Family Medicine; Visit Provider Family Medicine
DX: M19.071 Primary osteoarthritis, right ankle and foot (principal)
CPT/HCPCS: 36415; 80053; 84550

== ENCOUNTER → 2020-05-28 07:35 | Outpatient (CLI) | payer MEDICARE, MEDICAID, SELFPAY ==
--- NOTE | 2020-05-28 07:40 | US_ITS ---
STUDY: ABDOMINAL ULTRASOUND - RIGHT UPPER QUADRANT REASON FOR VISIT: Male, 69 years old ELEVATED BILIRUBIN TECHNIQUE: Ultrasound evaluation of the right upper quadrant was performed with real-time and static anaya-scale imaging. TECHNICAL QUALITY: Adequate. COMPARISON: None. FINDINGS: Liver: The liver measures 16.3 cm. There is increased echogenicity consistent with fatty infiltration. The bile ducts are within normal limits. There is hepatic color flow. The direction of portal flow is hepatopetal. There is no demonstrated mass lesion. Gallbladder: The patient is status post cholecystectomy. Common Bile Duct (C.B.D.): The common bile duct measures 4 mm. Pancreas: There is nonvisualization of the pancreas due to overlying bowel gas. Right Kidney: Normal size of the right kidney. The right kidney measures 12.3 cm x 5 cm x 5 cm. Normal renal cortex. The right cortex measures 1.4 cm. There is no demonstrated renal mass or cyst. There is no right hydronephrosis. IMPRESSION: Fatty infiltration of the liver. The patient is status post cholecystectomy. Electronically Signed: Chandler Ruffin MD at 11:19 EDT , Service support , STUDY: ABDOMINAL ULTRASOUND - ELASTOGRAPHY REASON FOR VISIT: Male, 69 years old. Fatty infiltration of the liver. TECHNIQUE: Liver stiffness measurements were obtained on a [employer] RS 85 ultrasound machine using a CA 1-7 probe following the SRU guidelines. 3 measurements were obtained using a 2-D-SWE method. The IQR/M was 16% suggesting a quality data set. TECHNICAL QUALITY: Adequate. COMPARISON: Comparison is made with prior sonogram done earlier in the day. FINDINGS: Liver: Fatty infiltration of the liver. Median liver stiffness measured 8.2 kPa. US/Abdomen Limited IMPRESSION: Liver stiffness measures 8.2 kPa compatible with F2 -- F3 Metavir score. Electronically Signed: Chandler Ruffin MD at 11:20 EDT , Service support ,
== END ==
PROVIDERS: PCP Family Medicine; Referring Provider Family Medicine; Visit Provider Family Medicine
DX: R17 Unspecified jaundice (principal)
CPT/HCPCS: 76705; 76981

== ENCOUNTER → 2020-10-20 11:00 | Outpatient (CLI) | payer MEDICARE, MEDICAID, SELFPAY | PROVIDERS: PCP Family Medicine; Referring Provider Nurse Practitioner Acute Care; Visit Provider Nurse Practitioner Acute Care | DX: G47.33 Obstructive sleep apnea (adult) (pediatric) (principal) | CPT/HCPCS: 98960; G0463 ==

== ENCOUNTER → 2020-10-30 15:07 | Outpatient (CLI) | payer MEDICARE, MEDICAID, SELFPAY ==
--- NOTE | 2020-10-30 15:15 | RAD_ITS ---
STUDY: X-RAY - LUMBAR SPINE REASON FOR EXAM: Male, 69 years old. For low back pain TECHNIQUE: 6 view(s) of the lumbar spine were obtained. COMPARISON: 2018 FINDINGS: Normal lumbar lordosis. There is no substantial scoliosis. There is a normal alignment of the vertebrae. There is multilevel endplate spondylosis of the lumbar vertebrae. There is multi-level degenerative disc disease with multi-level disc space narrowing. There is no demonstrated fracture. There is atherosclerotic calcification of the abdominal aorta without a demonstrated aneurysm. RAD/L/S Spine Min 4 Views IMPRESSION: Degenerative changes of the spine, as detailed above. No acute findings or significant interval change Electronically Signed: Bruce Galeas MD at 17:25 EDT , Service support ,
== END ==
PROVIDERS: PCP Family Medicine; Referring Provider Anesthesiology Pain Medicine; Visit Provider Anesthesiology Pain Medicine
DX: M51.37 Other intervertebral disc degeneration, lumbosacral region (principal)
CPT/HCPCS: 72110

== ENCOUNTER 2020-11-26 05:51 | Emergency (ER) | payer MEDICARE, MEDICAID, SELFPAY ==
[2020-11-26 05:53] VITALS: BP 204/120; PULSE 80; RESP 20; TEMP 36.4; O2SAT 99; BMI 44.1
--- NOTE | 2020-11-26 06:01 | RAD_ITS ---
STUDY: X-RAY - RIGHT SHOULDER REASON FOR EXAM: Male, 69 years old. INJURY TECHNIQUE: 4 view(s) of the shoulder. COMPARISON: None. FINDINGS: There is mild degenerative arthrosis of the glenohumeral articulation. There is degenerative arthrosis of the acromioclavicular joint without inferior osseous spur formation. Normal acromion. There is a fracture of the proximal to mid right clavicle. There is a visualized intramedullary bess in the distal right humerus. The soft tissue structures are unremarkable. Normal visualized pulmonary apex. RAD/Shoulder min 2 Views IMPRESSION: Fracture of the right clavicle. Status post Open reduction internal fixation of the distal right humerus partially visualized on this study. Electronically Signed: Nasrin Hogan MD at 6:46 EDT Tel , Service support ,
--- NOTE | 2020-11-26 06:16 | RAD_ITS ---
STUDY: X-RAY - RIGHT CLAVICLE REASON FOR EXAM: Male, 69 years old. Injury TECHNIQUE: 2 view(s) of the clavicle. COMPARISON: None. FINDINGS: There is a fracture of the mid to proximal right clavicle. There is degenerative arthrosis of the acromioclavicular joint without inferior osseous prominence. Normal visualized sternoclavicular articulation. Normal visualized pulmonary apex. RAD/Clavicle IMPRESSION: Degenerative change, acromioclavicular joint. Acute fracture of the proximal to mid right clavicle. Electronically Signed: Nasrin Hogan MD at 6:45 EDT Tel , Service support ,
--- NOTE | 2020-11-26 07:11 | EX.ED.UPPERE ---
HPI History of Present Illness HPI Narrative: Patient presents with right shoulder injury that began after a fall yesterday. Patient states he was sitting in a chair and fell out of the chair and off of the porch. Patient landed on his right shoulder. Patient states pain is sharp. Patient states pain is worse with any movement. Patient denies any paresthesias or weakness. Patient states pain radiates up into his neck. Patient denies any head injury or loss of consciousness. Patient denies any other injuries. Chief Complaint: Upper Extremity Injury Informant: patient Occured/Mechanism Mechanism/Context: Yes fall Onset/Context/Timing Onset: Yesterday Context: Sudden Onset Timing: Continuous Worsened by: Movement Relieved by: Nothing Associated Symptoms Associated Symptoms: Negative for Parasthesia, Weakness and Loss of Funtion [facility] Medical History (Updated 11/26/20 @ 07:[address] Adithya Perez, ) Asthma Atherosclerosis of coronary artery of [place] heart without angina pectoris Cardiomyopathy, idiopathic Diabetes type 2, controlled History of nephrolithiasis HTN (hypertension), benign Hyperlipidemia ARMANDO (obstructive sleep apnea) Osteoarthritis Persistent atrial fibrillation Rectal bleeding Stage 2 moderate COPD by GOLD classification Vitamin D deficiency Home Medications bupropion HCl 150 mg PO BID 05/15/15 [History Last Taken 01/16/19] atorvastatin 20 mg tablet 20 mg PO DAILY 01/26/17 [History Last Taken 11/21/18] tramadol 50 mg tablet 50 mg PO BID tab 03/01/18 [History Last Taken 07/22/19 06:30] gabapentin 600 mg PO BIDCM 11/12/18 [History Last Taken 03/25/19 05:30] cyanocobalamin (vitamin B-12) 1,000 mcg PO DAILY 11/22/18 [History Last Taken 11/21/18] fluticasone furoate 1 puff INHALATION PRN PRN 11/22/18 [History Last Taken 03/25/19 05:30] potassium citrate 5 mEq (540 mg) tablet,extended release 5 meq PO DAILY 09/17/19 [History Last Taken Unknown] carvedilol 12.5 mg tablet 6.25 mg PO BID tab 09/25/19 [History Last Taken Unknown] aspirin 81 mg tablet,delayed release 81 mg PO DAILY 11/18/19 [History Last Taken Unknown] furosemide 40 mg tablet 20 mg PO DAILY tab 10/12/20 [History Last Taken Unknown] montelukast 10 mg tablet 10 mg PO DAILY 11/18/19 [History Last Taken Unknown] apixaban 5 mg tablet 5 mg PO BID #180 tab 12/25/19 [Rx Last Taken Unknown] amlodipine 5 mg tablet 5 mg PO DAILY 12/26/19 [History Last Taken Unknown] magnesium oxide,aspartate,citr 400 mg PO BID cap 12/26/19 [History Last Taken Unknown] famotidine 40 mg tablet 40 mg PO QHS tablet 04/27/20 [History Last Taken Unknown] insulin detemir U-100 100 unit/mL (3 mL) subcutaneous pen 10 unit SC BID ml 04/27/20 [History Last Taken Unknown] liraglutide 0.6 mg/0.1 mL (18 mg/3 mL) subcutaneous pen injector 1.8 mg SC DAILY ml 04/27/20 [History Last Taken Unknown] multivitamin,om-abnn-tlubrhgr 27 mg-0.4 mg tablet 2 tablet PO DAILY tablet 04/27/20 [History Last Taken Unknown] sotalol 120 mg tablet 120 mg PO BID #180 tab 11/04/20 [Rx Last Taken Unknown] Allergy/AdvReac Type Severity Reaction Status Date / Time moxifloxacin HCl Allergy Hives Verified 11/26/20 05:53 [From Avelox] Family History (Reviewed 10/02/20 @ 13:50 by Eri Corral SPRAY DRIER OPERATOR HELPER, SPRAY DRIER OPERATOR HELPER-C) Father Cancer Lung CA Mother Cancer Sister Myocardial infarction Diabetes Heart disease Uncle CAD (coronary artery disease) Surgical History H/O oral surgery History of cardioversion (01/16/19) History of lithotripsy Hx of cholecystectomy (11/22/17) Presence of biventricular implantable cardioverter-defibrillator (ICD) Social History Smoking Status: Never smoker alcohol intake: never substance use type: does not use caffeine: No what type of physical activity do you participate in: none seatbelt use: always do you feel safe at home: Yes ROS ROS ED Constitutional Constitutional ED: Denies chills or fever(s) Eyes Eyes: Denies blurry vision or change in vision ENT ENT ED: Denies rhinorrhea or sore throat Cardiovascular Cardiovascular: Denies chest pain or palpitations Respiratory/Chest Respiratory/Chest: Reports cough; Denies dyspnea Gastrointestinal Gastrointestinal: Denies nausea or vomiting Genitourinary Genitourinary ED: Denies dysuria or hematuria Musculoskeletal Musculoskeletal: Reports neck pain; Denies back pain Integumentary Denies abscess or rash Neurologic Neurologic: Denies headache(s) or weakness Allergic/Immunologic Allergic/Immunologic ED: Denies mouth swelling or urticaria EXAM Physical Exam Const Vital Signs: 11/26/20 05:53 Temperature 97.6 F L Temperature Source Temporal Pulse Rate 80 Respiratory Rate 20 H Blood Pressure 204/120 H Blood Pressure Mean 148 Pulse Ox 99 Oxygen Delivery Method Room Air Positive well nourished, well developed and obese General Appearance ED: well developed Nutritional Appearance: obese HEENT Reports moist mucous membranes Neck supple Resp normal respiratory effort and clear to auscultation bilaterally Cardio regular rate and regular rhythm GI non-tender Palpation: soft Extremity Extremity Narrative: There is tenderness over the right clavicle and right shoulder area. Range of motion was limited in all motions of the right shoulder secondary to pain. There is no obvious deformity noted. Sensation was intact to light touch in the radial, median, ulnar, and axillary areas bilaterally. Radial pulses are equal bilaterally. Neuro oriented x3, CN's II-XII intact bilaterally, moves all extremities, no focal motor deficits and no sensory deficits noted Sensorium / Orientation: alert Psych mental status grossly normal MDM MDM MDM Narrative Medical decision making narrative: X-rays of the right shoulder were obtained. There are 4 views. On my interpretation, there is a nondisplaced fracture of the clavicle. There is no fracture of the proximal humerus. There is no dislocation. There is no soft tissue swelling. Radiologist also interpreted the x-rays and agrees. X-rays of the right clavicle were obtained. There are 2 views. On my interpretation, there is a nondisplaced fracture over the medial clavicle. There is no dislocation. There is no soft tissue swelling. Radiologist also interpreted the x-rays and agrees. Patient was given a sling and swath. Patient was instructed use ice to the area. Patient was instructed to follow-up with his primary care physician in 5 to 7 days. Patient understood and was agreeable with the plan. All questions were answered. Radiography Diagnostic Testing: Clinical Impression(s) from Imaging Studies Shoulder X-Ray 11/26/20 06:01 IMPRESSION: Fracture of the right clavicle. Status post Open reduction internal fixation of the distal right humerus partially visualized on this study. Electronically Signed: Nasrin Hogan MD at 6:46 EDT Tel , Service support , Clavicle X-Ray 11/26/20 06:16 IMPRESSION: Degenerative change, acromioclavicular joint. Acute fracture of the proximal to mid right clavicle. Electronically Signed: Nasrin Hogan MD at 6:45 EDT Tel , Service support , Discharge Plan Triage Chief Complaint: Upper Extremity Injury ED Provider: Adithya Perez Dx/Rx/DC Orders Clinical Impression: Closed right clavicular fracture Instructions: ED Fracture, Clavicle Prescriptions: No Action atorvastatin 20 mg tablet 20 mg PO DAILY RF: 0 potassium citrate 5 mEq (540 mg) tablet extended release 5 meq PO DAILY RF: 0 magnesium oxide,aspartate,citr 400 mg magnesium capsule 400 mg PO BID RF: 0 aspirin [Adult Low Dose Aspirin] 81 mg tablet,delayed release (DR/EC) 81 mg PO DAILY RF: 0 montelukast 10 mg tablet 10 mg PO DAILY RF: 0 famotidine 40 mg tablet 40 mg PO QHS RF: 0 liraglutide 0.6 mg/0.1 mL (18 mg/3 mL) pen injector 1.8 mg SC DAILY RF: 0 amlodipine 5 mg tablet 5 mg PO DAILY RF: 0 bupropion HCl 150 MG tablet extended release 24 hr 150 mg PO BID RF: 0 tramadol 50 mg tablet 50 mg PO BID RF: 0 multivitamin,qc-xarh-vsfecclo 27-0.4 mg tablet 2 tablet PO DAILY RF: 0 insulin detemir U-100 100 unit/mL (3 mL) insulin pen 10 unit SC BID RF: 0 gabapentin 600 MG tablet 600 mg PO BIDCM RF: 0 fluticasone furoate 100 blister with device 1 puff inhalation PRN PRN (Reason: Sob &/Or Wheezing) RF: 0 cyanocobalamin (vitamin B-12) 1,000 MCG capsule 1,000 mcg PO DAILY RF: 0 furosemide 40 mg tablet 20 mg PO DAILY RF: 0 carvedilol 12.5 mg tablet 6.25 mg PO BID RF: 0 Eliquis 5 mg tablet 5 mg PO BID Qty: 180 RF: 3 sotalol 120 mg tablet 120 mg PO BID Qty: 180 RF: 3 Primary Care Provider: Adithya Weaver Referrals: Adithya Weaver MD [Primary Care Provider] - 3-5 Days Disposition Disposition: Home, Self Care
[2020-11-26 07:26] VITALS: BP 166/92; PULSE 84; RESP 18
== END 2020-11-26 07:32 | disposition home or self-care (01) ==
PROVIDERS: Emergency Provider Emergency Medicine; PCP Family Medicine
DX: S42.017A Nondisplaced fracture of sternal end of right clavicle, initial encounter for closed fracture (principal); W07.XXXA Fall from chair, initial encounter; I48.19 Other persistent atrial fibrillation; I25.10 Atherosclerotic heart disease of native coronary artery without angina pectoris; I42.8 Other cardiomyopathies; J44.9 Chronic obstructive pulmonary disease, unspecified; E11.9 Type 2 diabetes mellitus without complications; I10 Essential (primary) hypertension; E78.5 Hyperlipidemia, unspecified; G47.33 Obstructive sleep apnea (adult) (pediatric); M19.90 Unspecified osteoarthritis, unspecified site; E66.9 Obesity, unspecified; Z79.01 Long term (current) use of anticoagulants; Z79.82 Long term (current) use of aspirin; Z79.4 Long term (current) use of insulin; Z79.899 Other long term (current) drug therapy
CPT/HCPCS: 73000; 73030; 99282

== ENCOUNTER 2021-03-18 16:11 | Outpatient (CLI) | payer MEDICARE, MEDICAID, SELFPAY ==
[2021-03-18 17:55] LABS: Vitamin B12 347 pg/mL (211-911); Vitamin D,25 Hydroxy 31.4 ng/mL
[2021-03-18 18:09] LABS: AST(SGOT) 13 U/L (15-37); Alanine Aminotransfer ALT/SGPT 22 U/L (16-61); Albumin, Serum 3.6 g/dL (3.2-5.0); Alkaline Phosphatase 73 U/L (45-117); BUN 18 mg/dL (7-18); BUN/Creat Ratio 15.8 RATIO (10-20); Calcium,Total 8.3 mg/dL (8.5-10.1); Chloride 108 mmol/L (98-107); Cholesterol 80 mg/dL (200); Creatinine, Serum 1.14 mg/dL (0.70-1.30); EST Glomerular Filtration Rate 67 mL/min (>60); Est Glom Filt Rate - Afr Amer 82 mL/min (>60); Globulin 3.7 g/dL (2.2-4.2); Glucose 92 mg/dL (74-106); Potassium 3.6 mmol/L (3.5-5.1); Protein, Total 7.3 g/dL (6.4-8.2); Sodium Level 142 mmol/L (136-145); Triglycerides 87 mg/dL
[2021-03-18 18:10] LABS: Anion Gap 5 (5-15); Ferritin 110 ng/mL (26-388); High Density Lipoprotein 28 mg/dL; Very Low Density Lipoprotein 17 mg/dL (5-40)
[2021-03-20 09:51] LABS: MG Sendout 2.3 mg/dL (1.6-2.3)
== END 2021-03-18 23:59 | disposition home or self-care (01) ==
LOC: MFPLAB 16:15
PROVIDERS: PCP Family Medicine; Referring Provider Family Medicine; Visit Provider Family Medicine
DX: E11.22 Type 2 diabetes mellitus with diabetic chronic kidney disease (principal); I42.9 Cardiomyopathy, unspecified; Z98.84 Bariatric surgery status
CPT/HCPCS: 36415; 80053; 80061; 82306; 82607; 82728; 82746; 83735

== ENCOUNTER 2021-04-13 22:59 | Outpatient (CLI) | payer MEDICARE, MEDICAID, SELFPAY | END 2021-04-13 23:59 | disposition home or self-care (01) | PROVIDERS: PCP Family Medicine; Visit Provider Internal Medicine Critical Care Medicine | DX: G47.33 Obstructive sleep apnea (adult) (pediatric) (principal) | CPT/HCPCS: 95811 ==

== ENCOUNTER → 2022-03-17 | Outpatient (CLI) | payer MEDICARE, SELFPAY ==
--- NOTE | 2022-03-17 09:06 | RAD_ITS ---
STUDY: X-RAY - LEFT FOOT CLINICAL: Male, 71 years old. Pain and swelling. TECHNIQUE: 4 view(s) of the foot. COMPARISON: March 2019. FINDINGS: Osteopenia. Small superior calcaneal spur. Normal tibiotalar joint, subtalar joint and midfoot. Normal TMT joints. Moderate arthrosis of the MTP and IP joints with hammertoe deformities. Hallux valgus deformity. Vascular calcification . RAD/Foot min 3 Views IMPRESSION: Osteopenia with osteoarthritic changes as described. Hallux valgus deformity. No acute abnormality or erosive changes. Electronically Signed: Bob Persaud, at 13:16 EST ,
[2022-03-17 10:30] LABS: Absolute Lymphocyte Count 0.95 X10^3/uL (0.83-4.51); Absolute Neutrophil Count 6.8 X10^3/uL (2.0-7.7); Basophil# 0.05 X10^3/uL; Basophil% 0.6 % (0-1); Eosinophil# 0.13 X10^3/uL; Eosinophils% 1.4 % (0-5); Hematocrit 46.4 % (40-54); Lymphocyte # 0.95 X10^3/ul (0.83-4.51); Lymphocyte % 10.5 % (19-41); Mean Corp Hgb Conc 32.3 g/dL (32-36); Mean Corpuscular Hgb 27.4 pg (27.0-32.0); Mean Corpuscular Volume 84.7 fL (80-94); Mean Platelet Vol. 9.9 fl (6.2-12.0); Monocyte# 1.03 X10^3/uL; Monocyte% 11.4 % (0-10); NRBC Flagged by Analyzer 0 % (0-5); Neutrophil # 6.84 X10^3/uL (2.7-7.7); Neutrophil % 75.8 % (47-70); Platelet Count 183 K/mm3 (150-450); RBC Distribution Width CV 15.4 % (11.6-14.6); RBC Distribution Width SD 47.3 fl (35.1-43.9); Red Blood Count 5.48 M/mm3 (4.6-6.2)
[2022-03-17 11:06] LABS: Vitamin B12 326 pg/mL (211-911); Vitamin D,25 Hydroxy 19.7 ng/mL
[2022-03-17 11:27] LABS: Hemoglobin A1c 5.7 % (3.8-5.6)
[2022-03-17 11:43] LABS: Magnesium 2.2 mg/dL (1.6-2.6); Uric Acid 10.3 mg/dL (3.5-7.2)
== END | disposition home or self-care (01) ==
LOC: MTLAB 09:06
PROVIDERS: PCP Family Medicine; Referring Provider Family Medicine; Visit Provider Family Medicine
DX: M79.672 Pain in left foot (principal); E11.22 Type 2 diabetes mellitus with diabetic chronic kidney disease; I48.91 Unspecified atrial fibrillation; N18.31 Chronic kidney disease, stage 3a; E53.8 Deficiency of other specified B group vitamins; M77.8 Other enthesopathies, not elsewhere classified
CPT/HCPCS: 36415; 73630; 82306; 82607; 82746; 83036; 83735; 84550; 85025; 86140

== ENCOUNTER 2022-04-18 15:00 | Outpatient (RCR) | payer MEDICARE, MEDICAID, SELFPAY ==
--- NOTE | 2021-10-21 07:11 | HP.PTEVAL ---
Patient's Visit Information SHIRLEY DELAROSA is a 70 year old M referred to Physical Therapy by Dr. Murphy Matson MD with a diagnosis of disc degeneration and lumbosacral radiculopathy. Date of Evaluation: 10/20/21 Physical Therapist: Omid Hardin DPT - Visit Plan Frequency: 2x /Week Duration: 6 Weeks Plan: Start with neutral spine core stability exercises and glute strengthening in aquatic setting. Add in proper pelvic postural awareness. Progress HEP. - Subjective Pt. is here today for his initial evaluation with diagnosis of disc degeneration and lumbosacral radiculopathy. He reports having back pain for ~50 years when he was out in [place] when he slide down while rock climbing landing on his feet sending pain throughout his spine. He has had nerve ablation with good results, also injections, but they did not go as well. PMH: diabetic, peripheral neuropath, defibulator placement, CODP, high BP. Pt. reports all are managed. Increased pain: lifting, bending fwrd, standing for longer periods of time. Decreased pain: sitting, heating pad. He reports sleeping well. No major leg symptoms at this point in time. He reports working hard at home, retired. No occurances where his legs have given out on him. He is here for pool therapy and has had good success in past. - Pain Lumbar spine Pain Intensity (Out of 10): 1 Pain Intensity Range: 0, 10 - Objective POSTURE: Pt. has FH posture decreased lumbar lordosis. PALPATION: Pt. has tenderness at lumbar erector spinae bilaterally. No pain with palpation of glutes or BLEs. NEURO: decreased sensation at L lateral knee (patient reports from a knee laceration as a kid), decrease in bilateral foot sensation to light touch. DTR: RLE: patellar 2+, achilles 2+; LLE: patellar 1+, achilles 2+. Pt. is able to rise on heels and toes without limitations, but did need balance aide. ROM: LUMBAR SPINE: flexion min loss mild increase NW, extension mod Loss mild increase NW, SB R mod loss increase NW, SB L nil loss NE, rotation min loss bilat increase nW. HS length- 85deg bilat in 90/90 positioning, tightness noted, but no pain. Tightness in B hip ER/IR motions, but not painful. tight hip extension as well, bilaterally. MMT: RLE: ankle/knee 5/5 throughout; hip: flexion 4/5 , abd 4/5, ext 4/5. LLE: ankle/knee 5/5 throughout; hip: flexion 4/5 , abd 4/5, ext 4/5. Core strength: poor. GAIT: Pt. has slight flexed posture with gait, wide [place] with increased trunk lateral translation. Normal step length noted. STAIRS: Pt. is able to complete with B HR with reciprocal pattern, but requires CGA for a bit of safety as he had some increased retro lean. - Balance/Special Test Scores Oswestry Low Back Score: 18 - Goals Goal 1:: LTG: Pt. to be I with HEP for core stability and glute strengthening. Goal Time Frame: 4-6 Weeks Goal 2:: STG: Pt. to be able to demonstrate improved postural control throughout therapy session. Goal Time Frame: 2 Weeks Goal 3:: LTG: Pt. to have increased BLE hip and core strengthening to 5/5 throughout allowing for increased ability to maintain proper posture with all ADLs and recreational activities. Goal Time Frame: 4-6 Weeks Goal 4:: LTG: Pt. to have increased lumbar ROM by 25% in all directions. Goal Time Frame: 4-6 Weeks Goal 5:: LTG: Pt. to tolerated ambulating 1000'+ allowing for increased tolerance to all community and recreational walking. Goal Time Frame: 4-6 Weeks - Rehabilitation Potential Physical Therapy Diagnosis: Pt. has signs and symptoms consistent with disc degeneration and lumbosacral radiculopathy. Pt. presents with marked core weakness, glute weakness with subsequent poor postural control. He would benefit from PT to work on core strength/stability in aquatic setting to reduce overall stress to lumbar spine with all home and recreational activities. Rehabilitation Potential: Good - Anticipated Interventions Patient/Client Instruction: Educate patient on: Condition, Plan of Care, Risk Factors, Benefits of Fitness Program For the Purpose of:: To foster healthy habits, To improve decision making, To facilitate caregiver knowledge, To improve self management, To prevent re-injury, To improve ability to perform tasks related to life management Therapeutic Exercise to Include: Strength training, Power training, Flexibilty training, In an aquatic setting, Dynamic Lumbar Stabilization, Katty Exercises, Scapular Strength/Stabilization For the Purpose of:: To decrease pain, To increase ROM, To improve nutrient delivery to tissue, To increase oxygenation perfusion, To improve muscle performance and motor function, To improve ability to perform ADL's, To improve health of tissue, To decrease soft tissue restriction, To increase flexibility/ROM Thank you for the opportunity to evaluate your patient. For Medicare and Medicare HMO plans, please review the plan of care and approve it. It will need to be FAXED BACK to us at [phone] for Medicare purposes. For Medicare only, by signing this I certify the plan of care. Please let me know if there are questions or concerns regarding this plan of care. Physician Signature: Date:
--- NOTE | 2022-01-24 09:01 | HP.PTREVAL_ITS ---
Dr. Murphy Matson MD, It has been my pleasure to treat SHIRLEY DELAROSA over the last 16 visits for disc degeneration and lumbosacral radiculopathy. Please see the progress note below for an update on the physical therapy plan of care! Subjective: Pt. reports I am doing much better. I started taking more pain medication and it has helped my pain alot. He did report that they are looking into doing a spinal stimulator, but is awaiting insurance approval. He is interested in getting back into aquatic therapy now that he may tolerate it better. Objective/Function: ROM: LUMABR SPINE: flexion min loss mild increase NW, extension mod loss increase NW, SB min loss bilat increase NW, rotation min loss bilat increase NW. Pt. has tight B HS and hip flexors. Pt. has normal B knee and hip ROM. MMT: distal LE strength 5/5 throughout without increase in symptoms. Pt. ahs 4+/5 bilater hip flexion, abduction. 4/5 B hip extension. Core strength- poor. Lumbar exrtensors fair-/. POSTURE: Pt. has sway back posture. Pt. is able to correct with some VCing, but unable to maintain. GAIT: Pt. has increased lateral postural sway, slight decrease in step length noted bilaterally. STAIRS: Step to pattern loading RLE only with 1 HR to complete, mild increase in LBP. 6MWT: 1108feet. Pt. is doing much better than previously maintain due to reduction in symptoms. Most likely due to medication. At this point I would like him to work on further stabilioty exercises progressing to I HEP in aquatic setting. Plan Plan: Progress towards I aquatic setting, patient plans to complete I at local pool after PT is done. Balance/Gait/Functional tests - Balance/Special Test Scores Oswestry Low Back Score: 15 6 Minute Walk Test: 1108feet Goals Goal 1:: LTG: Pt. to be I with HEP for core stability and glute strengthening. Goal Time Frame: 4-6 Weeks Goal Progress: Progressing Goal 2:: STG: Pt. to be able to demonstrate improved postural control throughout therapy session. Goal Time Frame: 2 Weeks Goal Progress: Progressing Goal 3:: LTG: Pt. to have increased BLE hip and core strengthening to 5/5 throughout allowing for increased ability to maintain proper posture with all ADLs and recreational activities. Goal Time Frame: 4-6 Weeks Goal Progress: Progressing Goal 4:: LTG: Pt. to have increased lumbar ROM by 25% in all directions. Goal Time Frame: 4-6 Weeks Goal Progress: Goal Met Goal 5:: LTG: Pt. to tolerated ambulating 1000'+ allowing for increased toleranc e to all community and recreational walking. Goal Time Frame: 4-6 Weeks Goal Progress: Goal Met Anticipated Interventions Patient/Client Instruction: Educate patient on: Condition, Plan of Care, Risk Factors, Benefits of Fitness Program For the Purpose of:: To foster healthy habits, To improve decision making, To facilitate caregiver knowledge, To improve self management, To prevent re- injury, To improve ability to perform tasks related to life management Therapeutic Exercise to Include: Strength training, Power training, Flexibilty training, In an aquatic setting, Dynamic Lumbar Stabilization, Katty Exercises, Scapular Strength/Stabilization For the Purpose of:: To decrease pain, To increase ROM, To improve nutrient delivery to tissue, To increase oxygenation perfusion, To improve muscle performance and motor function, To improve ability to perform ADL's, To improve health of tissue, To decrease soft tissue restriction, To increase flexibility/ROM Please do not hesitate to contact me at [phone] by phone or if you have questions or concerns regarding this new plan of care! Sincerely, Omid Hardin DPT
--- NOTE | 2022-04-04 14:54 | HP.PTREVAL ---
Dr. Murphy Matson MD, It has been my pleasure to treat SHIRLEY DELAROSA over the last 28 visits for disc degeneration and lumbosacral radiculopathy. Please see the progress note below for an update on the physical therapy plan of care! Subjective: Pt. reports having no pain today. Pt. reports getting denied for his spinal stimulator. He reports being HEP compliant with aquatic exercises. His biggest complaint is his ability to stand. He reports having increased pain iwth standing 4-5 minutes. Pt. requires frequent rest periods due to this. It has improved, but is still an issue. Objective/Function: Pt. reports being I with the pool exercises. ROM: lumbar spine: nil/min loss in all directions without increase in symptoms. No pain in lumbar spine or in BLEs. Pt. reports morning are doing better, but is still stiff in the AMs. 1000feet in 4:45 minute mild fatigue. MMT: 5/5 strength throughout BLEs, except hip flexion 4+/5, and hip abd 4+/5 no pain noted. Core strength fair, lumbar extensor strength: fair. Overall he is doing well. I am pleased with his progress. He would like to get back to work in the yard, but reports he would need better endurance and tolerate standing for longer periods of time to complete these tasks. Plan Plan: Pt. to continue with PT in aquatic setting. Increase his aerobic capacity in the poo, but also progress core and lumbar extensor strengthening. Balance/Gait/Functional tests - Balance/Special Test Scores Oswestry Low Back Score: 13 6 Minute Walk Test: 1108feet Goals Goal 1:: LTG: Pt. to be I with HEP for core stability and glute strengthening. Goal Time Frame: 4-6 Weeks Goal Progress: Goal Met Goal 2:: STG: Pt. to be able to demonstrate improved postural control throughout therapy session. Goal Time Frame: 2 Weeks Goal Progress: Goal Met Goal 3:: LTG: Pt. to have increased BLE hip and core strengthening to 5/5 throughout allowing for increased ability to maintain proper posture with all ADLs and recreational activities. Goal Time Frame: 4-6 Weeks Goal Progress: Progressing Goal 4:: LTG: Pt. to have increased lumbar ROM by 25% in all directions. Goal Time Frame: 4-6 Weeks Goal Progress: Goal Met Goal 5:: LTG: Pt. to tolerated ambulating 1000'+ allowing for increased tolerance to all community and recreational walking. 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 Goal Time Frame: 4-6 Weeks Anticipated Interventions Patient/Client Instruction: Educate patient on: Condition, Plan of Care, Risk Factors, Benefits of Fitness Program For the Purpose of:: To foster healthy habits, To improve decision making, To facilitate caregiver knowledge, To improve self management, To prevent re-injury, To improve ability to perform tasks related to life management Therapeutic Exercise to Include: Strength training, Power training, Flexibilty training, In an aquatic setting, Dynamic Lumbar Stabilization, Katty Exercises, Scapular Strength/Stabilization For the Purpose of:: To decrease pain, To increase ROM, To improve nutrient delivery to tissue, To increase oxygenation perfusion, To improve muscle performance and motor function, To improve ability to perform ADL's, To improve health of tissue, To decrease soft tissue restriction, To increase flexibility/ROM Please do not hesitate to contact me at [phone] by phone or if you have questions or concerns regarding this new plan of care! Sincerely, Omid Hardin DPT
== END 2022-04-18 19:00 | disposition home or self-care (01) ==
LOC: PT 15:00
PROVIDERS: PCP Family Medicine; Referring Provider Anesthesiology Pain Medicine; Visit Provider Anesthesiology Pain Medicine
DX: M51.17 Intervertebral disc disorders with radiculopathy, lumbosacral region (principal)
CPT/HCPCS: 97110; 97113; 97161; 97164

== ENCOUNTER → 2022-08-30 | Outpatient (CLI) | payer MEDICARE, MEDICAID, SELFPAY ==
--- NOTE | 2022-08-30 15:42 | RAD_ITS ---
INDICATION: FLANK PAIN COMPARISON: Abdominal CT 09/26/2019. FINDINGS: 3 frontal views of the abdomen. Nonobstructive bowel gas pattern. No obvious free air. No definite suspicious calcifications. No mass appreciated. RAD/Abdomen Single View IMPRESSION: Unremarkable abdomen. Electronically Signed: Jarrod Suarez MD at 5:26 EDT ,
== END | disposition home or self-care (01) ==
LOC: MTRAD 15:38
PROVIDERS: PCP Family Medicine; Referring Provider Nurse Practitioner Acute Care; Visit Provider Nurse Practitioner Acute Care
DX: M54.6 Pain in thoracic spine (principal); M47.817 Spondylosis without myelopathy or radiculopathy, lumbosacral region; M16.9 Osteoarthritis of hip, unspecified; R10.9 Unspecified abdominal pain
CPT/HCPCS: 74018

== ENCOUNTER 2022-10-07 15:00 | Outpatient (RCR) | payer MEDICARE, MEDICAID, SELFPAY ==
--- NOTE | 2022-05-03 15:34 | HP.PTREVAL_ITS ---
Dr. Murphy Matson MD, It has been my pleasure to treat SHIRLEY DELAROSA (BILL) over the last 1 visits for LBP. Please see the progress note below for an update on the physical therapy plan of care! Subjective: Pt reports pool has been helping him a lot Objective/Function: LBP ranges from 2-10/10. B LE MMT: B LE's are grossly 5/5 t hroughout. B LE radiculopathy no rated at 25 % improvement. Gait: Pt able to ambulate 680 feet until needing to rest secondary to pain and SOB. Pt is still limited with functional gait ability at this time and continues to suffer from LBP which limits most IADL's Plan Plan: Attempt to get 12 more PT visits approved to focus on core strengthening and LE strengthening in an aquatic setting Goals Goal 1:: Decrease LBP by 50% to aid with sleep Goal Time Frame: 4-6 Weeks Goal Progress: new goal Goal 2:: Pt will be able to ambulate 1000 feet to aid with community ambulation Goal Time Frame: 4-6 Weeks Goal Progress: New goal Goal 3:: I with HEP Goal Time Frame: 4-6 Weeks Goal Progress: New goal Anticipated Interventions Please do not hesitate to contact me at [phone] by phone or if you have questions or concerns regarding this new plan of care! Sincerely, Papo Rosales, PT, ATC
--- NOTE | 2022-06-29 13:51 | HP.PTREVAL_ITS ---
Dr. Murphy Matson MD, It has been my pleasure to treat SHIRLEY DELAROSA (BILL) over the last 10 visits for LBP. Please see the progress note below for an update on the physical therapy plan of care! Subjective: Pt. reports getting nerve ablations the last week on the R side and has been doing well. He is hopefully getting the same procedure on the other si de. Objective/Function: LUMBAR SPINE: Pt. has min loss in all directions, but only mild increase in symptoms with SB to the R side and rotation to the R side. MMT: BLE equal of BLEs. GAIT: Pt. has pretty good walking pattern. He maintains his sway back posture in stance. Pt. is going to see the chiropractor as well. Pt. denies any radicular symptoms currently. Pt. reports no sudden weakness in BLEs, but patient does have increased fatigue noted. He likes to work in garden and gets fatigued from this. MMT: RLE: ankle 5/5 throughout; knee: ext 21.3#, flexion 16.7#; hip: flexion 18#, abd 14.3#. LLE: ankld 5/5 throughout; knee: ext 27.8#, flexion 19.1#; hip: flexion 17.1, abd 18.3, ext 12.4. Core strength- fair-. Plan Plan: I would like to see Yoni for 8 more visits then progress to HEP in aquatics at that point in time. Focus on core stability and hip strength. Balance/Gait/Functional tests - Balance/Special Test Scores Oswestry Low Back Score: 12 Goals Goal 1:: Decrease LBP by 50% to aid with sleep Goal Time Frame: 4-6 Weeks Goal Progress: new goal Goal 2:: Pt will be able to ambulate 1000 feet to aid with community ambulation Goal Time Frame: 4-6 Weeks Goal Progress: New goal Goal 3:: I with HEP for aquatic therapy with focus on core and hip strengthenin g. Goal Time Frame: 4-6 Weeks Goal Progress: Progressing Goal 4:: PT. to complete all house hold chores without increase in LBP. Goal Time Frame: 4-6 Weeks Goal Progress: Progressing Goal 5:: LTG: Pt. to have fair core strength. Goal Time Frame: 2-4 Weeks Goal Progress: Progressing Anticipated Interventions Patient/Client Instruction: Educate patient on: Condition, Plan of Care, Risk Factors, Benefits of Fitness Program For the Purpose of:: To improve safety, To improve health and function, To foster healthy habits, To improve decision making, To facilitate caregiver knowledge, To improve self management Therapeutic Exercise to Include: Strength training, In an aquatic setting, Dynamic Lumbar Stabilization For the Purpose of:: To decrease pain, To increase ROM, To improve nutrient delivery to tissue, To increase oxygenation perfusion, To increase flexibility/ROM Please do not hesitate to contact me at [phone] by phone or if you have questions or concerns regarding this new plan of care! Sincerely, Omid Hardin DPT
--- NOTE | 2022-08-11 14:59 | HP.PTREVAL ---
Re-Evaluation Intro: Dr. Murphy Matson MD, It has been my pleasure to treat SHIRLEY DELAROSA (BILL) over the last 18 visits for LBP. Please see the progress note below for an update on the physical therapy plan of care! Subjective Subjective: Pt. had injection yesterday on the L side. Pt. reports 0/10 currently on the L side of spine, lumbar spine. 10/10 on R side. Objective Objective/Function: Pt. is hopeful to get another injection in his spine as well. PT. continues to wake up at night secondary to low back pain. Sleeping on L side has improved, still difficulty on R side. No N/T in either LEs. Legs are giving out on him either. Pt. is able to carry garbage bag to curb. Prolonged standing effects ability to complete dishes and cooking. Standing bending over to put groceries away cause increased pain as well. Pt. was able to ambulate 918feet with out AD. He had to take 3 standing rest periods to do so. Pt. ambulated for 5:47sec. strength: 5/5 throughout BLEs. Pt. has poor+ core strength. Plan Plan Plan: Cont. with core strengthening, progressive strengthening of lumbar erector spinae and core strengthening. Add in cardiovascular exercises well to increase overall endurance and tolerance to activities. Balance/Gait/Functional tests Balance/Special Test Scores Oswestry Low Back Score: 10 Goals Goals Goal 1:: Decrease LBP by 50% to aid with sleep Goal Time Frame: 4-6 Weeks Goal Progress: Progressing Goal 2:: Pt will be able to ambulate 1000 feet to aid with community ambulation Goal Time Frame: 4-6 Weeks Goal Progress: Progressing Goal 3:: I with HEP for aquatic therapy with focus on core and hip strengthening. Goal Time Frame: 4-6 Weeks Goal Progress: Progressing Goal 4:: PT. to complete all house hold chores without increase in LBP. Goal Time Frame: 4-6 Weeks Goal Progress: Progressing Goal 5:: LTG: Pt. to have fair core strength. Goal Time Frame: 2-4 Weeks Goal Progress: Progressing Anticipated Interventions Anticipated Interventions Patient/Client Instruction: Educate patient on: Condition, Plan of Care, Risk Factors and Benefits of Fitness Program For the Purpose of:: To improve safety, To improve health and function, To foster healthy habits, To improve decision making, To facilitate caregiver knowledge and To improve self management Therapeutic Exercise to Include: Strength training, In an aquatic setting and Dynamic Lumbar Stabilization For the Purpose of:: To decrease pain, To increase ROM, To improve nutrient delivery to tissue, To increase oxygenation perfusion and To increase flexibility/ROM Re-Evaluation Ending Re-evaluation ending: Please do not hesitate to contact me at [phone] by phone or if you have questions or concerns regarding this new plan of care! Sincerely, DWAINE AlxeandreT
--- NOTE | 2022-09-12 15:48 | HP.PTREVAL_ITS ---
Re-Evaluation Intro: Dr. Murphy Matson MD, It has been my pleasure to treat SHIRLEY DELAROSA (BILL) over the last 26 visits for LBP. Please see the progress note below for an update on the physical therapy plan of care! Subjective Subjective: Pt. reports overall doing well. Pt. pleased. Pt. reports having 2/10 pain in his lumbar spine this date. Pt. reports having blood glucose levels have been improving. Objective Objective/Function: ROM: flexion min/mod loss increase NW, ext mod loss increase NW, SB nil loss NE bilat, rotation min loss NE bilat. MMT: RLE: knee: ext 53.9#, flexion: 36.0#; LLE: knee: ext 42.5#, flexion: 34.4#; Core strength: poor+. Pt. has better activation of TA this date. 6 MWT : 891 with out AD, 2 standing rest periods. Pt. had to stop at 5:31 due to fatigue and low back pain. Pt.. ambulates safely with out AD. Overall doing better. He does have tight HS and still limited lumbar mobility. Cont. to work stretching, core stability progressing to I HEP. Plan Plan Plan: Pt. to keep coming x2 week for 4 weeks until 10/07 when his approval ends. Work core stability, hip strengthening and HS stretching. Cont. with c ardiovascular exercises well to increase overall endurance and tolerance to activities. Balance/Gait/Functional tests Balance/Special Test Scores Oswestry Low Back Score: 10 Goals Goals Goal 1:: Decrease LBP by 50% to aid with sleep Goal Time Frame: 4-6 Weeks Goal Progress: Progressing Goal 2:: Pt will be able to ambulate 1000 feet to aid with community ambulation Goal Time Frame: 4-6 Weeks Goal Progress: Progressing Goal 3:: I with HEP for aquatic therapy with focus on core and hip strengthening. Goal Time Frame: 4-6 Weeks Goal Progress: Progressing Goal 4:: PT. to complete all house hold chores without increase in LBP. Goal Time Frame: 4-6 Weeks Goal Progress: Progressing Goal 5:: LTG: Pt. to have fair core strength. Goal Time Frame: 2-4 Weeks Goal Progress: Progressing Anticipated Interventions Anticipated Interventions Patient/Client Instruction: Educate patient on: Condition, Plan of Care, Risk Factors and Benefits of Fitness Program For the Purpose of:: To improve safety, To improve health and function, To foster healthy habits, To improve decision making, To facilitate caregiver knowledge and To improve self management Therapeutic Exercise to Include: Strength training, In an aquatic setting and Dynamic Lumbar Stabilization For the Purpose of:: To decrease pain, To increase ROM, To improve nutrient delivery to tissue, To increase oxygenation perfusion and To increase flexibility/ROM Re-Evaluation Ending Re-evaluation ending: Please do not hesitate to contact me at [phone] by phone or if you have questions or concerns regarding this new plan of care! Sincerely, DWAINE AlexandreT
--- NOTE | 2022-10-07 15:38 | HP.PTREVAL ---
Re-Evaluation Intro: Dr. Murphy Matson MD, It has been my pleasure to treat SHIRLEY DELAROSA (BILL) over the last 34 visits for LBP. Please see the progress note below for an update on the physical therapy plan of care! Subjective Subjective: Pt reports his LBP remains constant at 5/10 Objective Objective/Function: LBP remains at 5/10 pain at this time Pt is limited with all house chores at this time secondary to pain Pt is able to ambulate 340 feet until needing to rest secondary to pain Pt is still very limited with ambulation and all IADL's secondary to LBP Plan Plan Plan: Attempt to get 12 more visits to progress core and LE strengthening Balance/Gait/Functional tests Balance/Special Test Scores Oswestry Low Back Score: 26 Goals Goals Goal 1:: Decrease LBP by 50% to aid with sleep Goal Time Frame: 4-6 Weeks Goal Progress: Progressing Goal 2:: Pt will be able to ambulate 1000 feet to aid with community ambulation Goal Time Frame: 4-6 Weeks Goal Progress: Progressing Goal 3:: I with HEP for aquatic therapy with focus on core and hip strengthening. Goal Time Frame: 4-6 Weeks Goal Progress: Progressing Goal 4:: PT. to complete all house hold chores without increase in LBP. Goal Time Frame: 4-6 Weeks Goal Progress: Progressing Goal 5:: LTG: Pt. to have fair core strength. Goal Time Frame: 2-4 Weeks Goal Progress: Progressing Anticipated Interventions Anticipated Interventions Patient/Client Instruction: Educate patient on: Condition, Plan of Care, Risk Factors and Benefits of Fitness Program For the Purpose of:: To improve safety, To improve health and function, To foster healthy habits, To improve decision making, To facilitate caregiver knowledge and To improve self management Therapeutic Exercise to Include: Strength training, In an aquatic setting and Dynamic Lumbar Stabilization For the Purpose of:: To decrease pain, To increase ROM, To improve nutrient delivery to tissue, To increase oxygenation perfusion and To increase flexibility/ROM Re-Evaluation Ending Re-evaluation ending: Please do not hesitate to contact me at [phone] by phone or if you have questions or concerns regarding this new plan of care! Sincerely, Papo Rosales, PT, ATC
== END 2022-10-07 19:00 | disposition home or self-care (01) ==
LOC: PT 15:00
PROVIDERS: PCP Family Medicine; Referring Provider Anesthesiology Pain Medicine; Visit Provider Anesthesiology Pain Medicine
DX: M51.37 Other intervertebral disc degeneration, lumbosacral region (principal); M54.17 Radiculopathy, lumbosacral region
CPT/HCPCS: 97113; 97164

== ENCOUNTER 2022-11-12 18:39 | Emergency (ER) | payer MEDICARE, MEDICAID, SELFPAY ==
[2022-11-12 18:40] VITALS: BP 168/91; PULSE 82; RESP 20; TEMP 36.4; O2SAT 100
--- NOTE | 2022-11-12 18:41 | EX.ED.DYSGE1 ---
HPI History of Present Illness Chief Complaint: Lower Extremity Injury [facility] Medical History (Reviewed 09/27/22 @ 13:28 by Eri Corral [employer], [employer]) Asthma Atherosclerosis of coronary artery of [place] heart without angina pectoris Cardiomyopathy, idiopathic Diabetes type 2, controlled History of nephrolithiasis HTN (hypertension), benign Hyperlipidemia ARMANDO (obstructive sleep apnea) Osteoarthritis Persistent atrial fibrillation Rectal bleeding Stage 2 moderate COPD by GOLD classification Vitamin D deficiency Home Medications bupropion HCl 150 mg 24 hr tablet, extended release 150 mg PO BID depression 05/15/15 [History Last Taken 01/16/19] atorvastatin 20 mg tablet 20 mg PO DAILY cholesterol 01/26/17 [History Last Taken 11/21/18] tramadol 50 mg tablet 50 mg PO BID pain 03/01/18 [History Last Taken 07/22/19 06:30] gabapentin 600 mg tablet 600 mg PO BIDCM nerve pain 11/12/18 [History Last Taken 03/25/19 05:30] cyanocobalamin (vitamin B-12) 1,000 mcg capsule 1,000 mcg PO DAILY vitamin 11/22/18 [History Last Taken 11/21/18] fluticasone furoate 100 mcg/actuation blister powder for inhalation 1 puff inhalation PRN PRN Sob &/Or Wheezing 11/22/18 [History Last Taken 03/25/19 05:30] potassium citrate 5 mEq (540 mg) tablet,extended release 5 meq PO DAILY 09/17/19 [History Last Taken Unknown] aspirin 81 mg tablet,delayed release (Adult Low Dose Aspirin) 81 mg PO DAILY 11/18/19 [History Last Taken Unknown] furosemide 40 mg tablet 20 mg PO DAILY diuretic 11/18/19 [History Last Taken Unknown] montelukast 10 mg tablet 10 mg PO DAILY 11/18/19 [History Last Taken Unknown] apixaban 5 mg tablet (Eliquis) 5 mg PO BID blood thinner #180 tabs 12/25/19 [Rx Last Taken Unknown] magnesium oxide,aspartate,citr 400 mg PO BID 12/26/19 [History Last Taken Unknown] multivitamin,mf-pfju-jpsiwqjm 27 mg-0.4 mg tablet 2 tablet PO DAILY vitamin 04/27/20 [History Last Taken Unknown] allopurinol 100 mg tablet 100 mg PO DAILY 12/25/20 [History Last Taken Unknown] alpha lipoic acid 200 mg capsule 200 mg PO DAILY 12/25/20 [History Last Taken Unknown] tamsulosin 0.4 mg capsule 0.4 mg PO DAILY 12/25/20 [History Last Taken Unknown] metformin 500 mg tablet,extended release 24hr 1,000 mg PO DAILY 06/28/21 [History Last Taken Unknown] carvedilol 12.5 mg tablet 12.5 mg PO BID #180 tabs 01/06/22 [Rx Last Taken Unknown] dulaglutide 1.5 mg/0.5 mL subcutaneous pen injector (Trulicity) ml subcut 01/06/22 [History Last Taken Unknown] Allergy/AdvReac Type Severity Reaction Status Date / Time moxifloxacin HCl Allergy Hives Verified 11/12/22 18:41 [From Avelox] Family History (Reviewed 09/27/22 @ 13:28 by Eri Corral [employer], [employer]) Father Cancer Lung CA Mother Cancer Sister Myocardial infarction Diabetes Heart disease Uncle CAD (coronary artery disease) Surgical History (Reviewed 09/27/22 @ 13:28 by Eri Corral [employer], [employer]) H/O oral surgery History of cardioversion (01/16/19) History of gastric bypass History of lithotripsy Hx of cholecystectomy (11/22/17) Presence of biventricular implantable cardioverter-defibrillator (ICD) Social History (Reviewed 09/27/22 @ 13:28 by Eri Corral [employer], [employer]) Smoking Status: Never smoker alcohol intake: never substance use type: does not use caffeine: No what type of physical activity do you participate in: none seatbelt use: always do you feel safe at home: Yes EXAM Physical Exam Const Vital Signs: 11/12/22 18:40 Temperature 97.6 F L Temperature Source Temporal Pulse Rate 82 Respiratory Rate 20 H Blood Pressure 168/91 H Blood Pressure Mean 116 Pulse Ox 100 Oxygen Delivery Method Room Air MDM MDM MDM Narrative Medical decision making narrative: HISTORY OF PRESENT ILLNESS: 71-year-old male here with right foot pain. States he had mechanical fall yesterday. He further states he did not hit his head or lose consciousness. REVIEW OF SYSTEMS: Pertinent positives: Foot pain Pertinent negatives: Weakness, extremity cold to touch PHYSICAL EXAM: Nursing triage notes reviewed, Vital signs reviewed Constitutional: please see mdm : No CVAT Extremities: No edema, TTP over right ankle, Right dorsal foot. Neuro: Intact sensation L1-S1 dermatomal distributions. Intact 5/5 strength in hip flexion (T12-L3). Knee extension (L2-L4). Ankle dorsiflexion (L4-L5). Ankle plantar flexion (S1). Great toe extension (L5). 2+ patellar and Achilles DTRs. Skin: No rash or lesions noted MEDICAL DECISION MAKING: Chief Complaint: Foot pain External records reviewed: Imaging reviewed: X-ray of the right foot from 2019 shows no acute fracture dislocation Factors affecting care: Obesity, hyperlipidemia, type 2 diabetes Social determinants of health: none History obtained from others: the patient's Consults: none [facility] Narrative: Hemodynamically stable, afebrile, nontoxic-appearing. Exam I considered the following differential diagnosis: Sprain, fracture dislocation I obtained an x-ray which showed no acute fractures location by my read. ALL IMAGES (IF OBTAINED) HAVE BEEN PERSONALLY REVIEWED AND INTERPRETED BY MYSELF. The radiologist report showed no acute fracture or dislocation. Likely etiology is sprain. Instructed to perform RICE therapy. Counseled on strict return precautions. The patient and/or family, caregivers express understanding. The patient and/or family, caregivers agrees with the plan. Shared decision making: I will have a discussion with the patient and or visitors regarding risk/benefits of further testing or admission. They will be made aware of of the risk/benefits inherent in this decision they will be given the opportunity to voice understanding. Total critical care time today provided was at least 0 minutes. This excludes separately billable procedures. Critical care time (if documented) is secondary to the patient having high probability of clinically significant/life threatening deterioration in the patient's condition which required my urgent intervention. Impression: 1. Acute right foot pain Dispo: Discharge Radiography Diagnostic Testing: Clinical Impression(s) from Imaging Studies Foot X-Ray 11/12/22 18:45 IMPRESSION: Metal foreign body plantar to the second middle phalanx. Electronically Signed: Florecita Mock MD at 20:25 EDT Reading Location ID and State: [id number] / Tel , Service support , Ankle X-Ray 11/12/22 18:50 IMPRESSION: Soft tissue swelling. No fracture. Electronically Signed: Florecita Mock MD at 20:56 EDT Reading Location ID and State: [id number] / Tel , Service support , Discharge Plan Triage Chief Complaint: Lower Extremity Injury ED Provider: Kyaw Boogie Dx/Rx/DC Orders Clinical Impression: Contusion Instructions: Bruises (Contusions) Prescriptions: No Action atorvastatin 20 mg tablet 20 mg PO DAILY potassium citrate 5 mEq (540 mg) tablet extended release 5 meq PO DAILY magnesium oxide,aspartate,citr 400 mg magnesium capsule 400 mg PO BID aspirin [Adult Low Dose Aspirin] 81 mg tablet,delayed release (DR/EC) 81 mg PO DAILY montelukast 10 mg tablet 10 mg PO DAILY allopurinol 100 mg tablet 100 mg PO DAILY alpha lipoic acid 200 mg capsule 200 mg PO DAILY tamsulosin 0.4 mg capsule 0.4 mg PO DAILY metformin 500 mg tablet extended release 24hr 1,000 mg PO DAILY Trulicity 1.5 mg/0.5 mL pen injector subcut Patient Comments: INJECT 1.5 MG SUBCUTANEOUSLY ONE TIME A WEEK. carvedilol 12.5 mg tablet 12.5 mg PO BID Qty: 180 4RF Rx Instructions: must administer with a meal/food bupropion HCl 150 MG tablet extended release 24 hr 150 mg PO BID tramadol 50 mg tablet 50 mg PO BID multivitamin,nb-gndg-zmcrtshw 27-0.4 mg tablet 2 tablet PO DAILY gabapentin 600 MG tablet 600 mg PO BIDCM fluticasone furoate 100 blister with device 1 puff inhalation PRN PRN (Reason: Sob &/Or Wheezing) cyanocobalamin (vitamin B-12) 1,000 MCG capsule 1,000 mcg PO DAILY furosemide 40 mg tablet 20 mg PO DAILY Eliquis 5 mg tablet 5 mg PO BID Qty: 180 3RF Primary Care Provider: Adithya Weaver Referrals: Adithya Weaver MD [Primary Care Provider] - Activity Restrictions/Additional Instructions: Thank you for trusting us with your care today! Please take Tylenol (2 pills, 650 mg), ibuprofen (2 pills, 400 mg) every 6 hours as needed for pain and fever control. Please return to the emergency department if your symptoms change or worsen. Please follow with your primary care physician for further outpatient evaluation and management. You were noted to have likely fungal infection of the lower abdomen. Please go to your local pharmacy or drugstore and obtain topical antifungal cream such as Lotrimin, Tinactin. Disposition Disposition: Home, Self Care
--- NOTE | 2022-11-12 18:45 | RAD_ITS ---
INDICATION: pain EXAMINATION/TECHNIQUE: X-RAY - RIGHT XR Foot Min 3 Views 3 VIEWS COMPARISON: FINDINGS: No acute fracture or dislocation. No destructive bone changes. Joint spaces are well-maintained. Normal alignment. Soft tissues are unremarkable. 1.1 cm linear metallic foreign body in the soft tissues plantar to the second middle phalanx. RAD/Foot min 3 Views IMPRESSION: Metal foreign body plantar to the second middle phalanx. Electronically Signed: Florecita Mock MD at 20:25 EDT Reading Location ID and State: [id number] / Tel , Service support ,
--- NOTE | 2022-11-12 18:50 | RAD_ITS ---
INDICATION: pain EXAMINATION/TECHNIQUE: X-RAY - RIGHT XR Ankle Min 3 Views 3 VIEWS COMPARISON: 11/18/2018. FINDINGS: No acute fracture or dislocation. No destructive bone changes. Joint spaces are well-maintained. Normal alignment. Moderate lateral soft tissue swelling. No radiopaque foreign body or soft tissue gas. RAD/Ankle min 3 Views IMPRESSION: Soft tissue swelling. No fracture. Electronically Signed: Florecita Mock MD at 20:56 EDT Reading Location ID and State: [id number] / Tel , Service support ,
[2022-11-12] MEDS: Oxycodone/Apap 5/325 Tablet PO (19:01)
[2022-11-12 19:02] VITALS: BMI 41.5
[2022-11-12 21:37] VITALS: BP 143/79; PULSE 79; RESP 18; O2SAT 95
== END 2022-11-12 21:39 | disposition home or self-care (01) ==
PROVIDERS: Emergency Provider Emergency Medicine; PCP Family Medicine; Visit Provider Emergency Medicine
DX: S90.31XA Contusion of right foot, initial encounter (principal); J44.9 Chronic obstructive pulmonary disease, unspecified; I42.9 Cardiomyopathy, unspecified; I48.19 Other persistent atrial fibrillation; E11.9 Type 2 diabetes mellitus without complications; W19.XXXA Unspecified fall, initial encounter; I25.10 Atherosclerotic heart disease of native coronary artery without angina pectoris; I10 Essential (primary) hypertension; E78.5 Hyperlipidemia, unspecified; G47.33 Obstructive sleep apnea (adult) (pediatric); E66.9 Obesity, unspecified; Z79.01 Long term (current) use of anticoagulants; Z79.82 Long term (current) use of aspirin; Z79.84 Long term (current) use of oral hypoglycemic drugs; Z79.899 Other long term (current) drug therapy; Z98.84 Bariatric surgery status; Z95.810 Presence of automatic (implantable) cardiac defibrillator
CPT/HCPCS: 73610; 73630; 99282

== ENCOUNTER 2022-12-28 14:41 | Outpatient (RCR) | payer MEDICARE, MEDICAID, SELFPAY ==
--- NOTE | 2022-12-28 15:44 | HP.PTEVAL_ITS ---
Patient's Visit Information Visit Information Visit Information: SHIRLEY DELAROSA is a 72 year old M referred to Physical Therapy by ROSITA Villagran with a diagnosis of OA/Hip pain, spondylosis of L & thoracic. Date of Evaluation: 12/28/22 Physical Therapist: CODIE Gross Visit Plan Frequency: 2x /Week Duration: 2 Months Plan: Pt has a pacemaker/defibulator 2X/ week for 4-8 weeks for AT for core stability, trunk ROM, Stretching of the HS/piriformis, LE strength, gait training with HEP Subjective Subjective: Pt reports that his back hurts. His back has hurt since the 's. He has been getting shots in the back and they help and he had the nerves jason off at times. He is hoping to see the new back Dr and see what he recommends. He reports that he has back pain across the back and constant pain. It is bad in sitting (has to readjust) and mostly standing hurts when walking. Pt has no pain down the legs. 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 He has no weakness in the legs. He has PT before and he feels that AT helps more than the land therapy. He is seeing a chiropractor... and he feels that it helps. Pain back pain: Pain Intensity (Out of 10): 5 Objective Objective: Gait: walks with decreased stance time on the L LE LE MMT: R hip flex 7.9 and L 6.6 R knee ext 13.6 and L 12.1 R knee flex 10.6 and L 8.3 Trunk AROM: flexion 50%, SB B 25%m Rot B 10%, Ext 10% normal ROM Patella DTR''s: R 1+/3 and L 2+/3 SLUMP TEST: Negative B (stretching feeling but no pain) SLR Test: +B for LBP Bridge: pt is able to bridge but only 50% ROM (increase pain) Pt has tight B HS B, piriformis B Balance/Special Test Scores Oswestry Low Back Score: 25 Goals Goal 1:: I HEP Goal Time Frame: 6-8 Weeks Goal 2:: Decrease overall back pain to 2/10 with ADL's and walking Goal Time Frame: 6-8 Weeks Goal 3:: Increase LE strength (at time of the eval: LE MMT: R hip flex 7.9 and L 6.6 R knee ext 13.6 and L 12.1 R knee flex 10.6 and L 8.3) Goal Time Frame: 6-8 Weeks Goal 4:: Increase HS and piriformis felxability Goal Time Frame: 6-8 Weeks Rehabilitation Potential Rehabilitation Potential: Good Anticipated Interventions Patient/Client Instruction: Educate patient on: Condition and Plan of Care For the Purpose of:: To decrease pain, To decrease swelling/inflammation, To improve nutrient delivery to tissue, To improve muscle performance and motor function, To improve ability to perform ADL's, To increase tolerance to activity/condition/position, To improve performance and independence with ADL's, To decrease level of supervision to perform tasks, To improve gait and locomotor functions, To improve health of tissue, To increase flexibility/ROM and To improve endurance Therapeutic Exercise to Include: Strength training, Endurance training, Postural training, Flexibilty training, Gait and locomotor training, In an aquatic setting , Active ROM and Dynamic Lumbar Stabilization For the Purpose of:: To decrease pain, To increase ROM, To improve nutrient deli very to tissue, To improve muscle performance and motor function, To improve ability to perform ADL's, To increase tolerance to activity/condition/position, To improve performance and independence with ADL's, To decrease level of supervision to perform tasks, To improve ability of physical actions for home/community/work/leisure, To improve health of tissue and To decrease soft tissue restriction Text: Thank you for the opportunity to evaluate your patient. For Medicare and Medicare HMO plans, please review the plan of care and approve it. It will need to be FAXED BACK to us at [phone] for Medicare purposes. For Medicare only, by signing this I certify the plan of care. Please let me know if there are questions or concerns regarding this plan of care. Physician Signature: Date:
== END 2022-12-28 19:00 | disposition home or self-care (01) ==
LOC: PT 14:41
PROVIDERS: PCP Family Medicine; Referring Provider Nurse Practitioner Acute Care; Visit Provider Nurse Practitioner Acute Care
DX: M51.37 Other intervertebral disc degeneration, lumbosacral region (principal); M25.559 Pain in unspecified hip; M54.17 Radiculopathy, lumbosacral region; M47.817 Spondylosis without myelopathy or radiculopathy, lumbosacral region; M47.814 Spondylosis without myelopathy or radiculopathy, thoracic region; M16.9 Osteoarthritis of hip, unspecified; R10.9 Unspecified abdominal pain; M70.60 Trochanteric bursitis, unspecified hip
CPT/HCPCS: 97161

== ENCOUNTER → 2023-01-02 | Outpatient (CLI) | payer MEDICARE, MEDICAID, SELFPAY ==
[2023-01-02 15:21] LABS: Absolute Lymphocyte Count 1.44 X10^3/uL (0.83-4.51); Absolute Neutrophil Count 5.4 X10^3/uL (2.0-7.7); Basophil# 0.07 X10^3/uL; Basophil% 0.9 % (0-1); Eosinophil# 0.27 X10^3/uL; Eosinophils% 3.4 % (0-5); Hematocrit 43.2 % (40-54); Hemoglobin 13.8 g/dL (13.0-16.5); Lymphocyte # 1.44 X10^3/ul (0.83-4.51); Lymphocyte % 18.1 % (19-41); Mean Corp Hgb Conc 31.9 g/dL (32-36); Mean Corpuscular Hgb 26.9 pg (27.0-32.0); Mean Corpuscular Volume 84.2 fL (80-94); Monocyte# 0.75 X10^3/uL; Monocyte% 9.4 % (0-10); NRBC Flagged by Analyzer 0 % (0-5); Neutrophil # 5.37 X10^3/uL (2.7-7.7); Neutrophil % 67.4 % (47-70); Platelet Count 149 K/mm3 (150-450); RBC Distribution Width CV 16.2 % (11.6-14.6); RBC Distribution Width SD 48.6 fl (35.1-43.9); Red Blood Count 5.13 M/mm3 (4.6-6.2)
[2023-01-02 15:51] LABS: Hemoglobin A1c 5.5 % (3.8-5.6)
[2023-01-02 15:53] LABS: Vitamin B12 304 pg/mL (211-911)
[2023-01-02 16:10] LABS: AST(SGOT) 22 U/L (15-37); Alanine Aminotransfer ALT/SGPT 24 U/L (16-61); Albumin, Serum 3.6 g/dL (3.2-5.0); Alkaline Phosphatase 55 U/L (45-117); Anion Gap 7 (5-15); BUN 18 mg/dL (7-18); BUN/Creat Ratio 9.2 RATIO (10-20); Calcium,Total 8.5 mg/dL (8.5-10.1); Chloride 110 mmol/L (98-107); Cholesterol 126 mg/dL (200); Creatinine, Serum 1.95 mg/dL (0.70-1.30); EST Glomerular Filtration Rate 36 mL/min (>60); Est Glom Filt Rate - Afr Amer 44 mL/min (>60); Globulin 3.6 g/dL (2.2-4.2); Glucose 140 mg/dL (74-106); High Density Lipoprotein 27 mg/dL; Magnesium 2.3 mg/dL (1.6-2.6); Potassium 4.1 mmol/L (3.5-5.1); Protein, Total 7.2 g/dL (6.4-8.2); Sodium Level 142 mmol/L (136-145); Triglycerides 160 mg/dL; Uric Acid 7.4 mg/dL (3.5-7.2); Very Low Density Lipoprotein 32 mg/dL (5-40)
== END | disposition home or self-care (01) ==
PROVIDERS: PCP Family Medicine; Referring Provider Family Medicine; Visit Provider Family Medicine
DX: I42.9 Cardiomyopathy, unspecified (principal); E11.22 Type 2 diabetes mellitus with diabetic chronic kidney disease; E79.0 Hyperuricemia without signs of inflammatory arthritis and tophaceous disease; Z98.84 Bariatric surgery status; N18.9 Chronic kidney disease, unspecified
CPT/HCPCS: 36415; 80053; 80061; 82607; 82746; 83036; 83735; 84550; 85025

== ENCOUNTER → 2023-03-23 | Outpatient (CLI) | payer MEDICARE, MEDICAID, SELFPAY ==
[2023-03-23 12:09] LABS: Absolute Lymphocyte Count 0.94 X10^3/uL (0.83-4.51); Absolute Neutrophil Count 4.9 X10^3/uL (2.0-7.7); Basophil# 0.05 X10^3/uL; Basophil% 0.8 % (0-1); Eosinophil# 0.16 X10^3/uL; Eosinophils% 2.4 % (0-5); Hematocrit 39.4 % (40-54); Hemoglobin 12.6 g/dL (13.0-16.5); Lymphocyte # 0.94 X10^3/ul (0.83-4.51); Lymphocyte % 14.3 % (19-41); Mean Corpuscular Hgb 28.1 pg (27.0-32.0); Mean Corpuscular Volume 87.9 fL (80-94); Mean Platelet Vol. 10.1 fl (6.2-12.0); Monocyte# 0.55 X10^3/uL; Monocyte% 8.4 % (0-10); NRBC Flagged by Analyzer 0 % (0-5); Neutrophil # 4.85 X10^3/uL (2.7-7.7); Neutrophil % 73.6 % (47-70); Platelet Count 161 K/mm3 (150-450); RBC Distribution Width CV 16.7 % (11.6-14.6); RBC Distribution Width SD 52.9 fl (35.1-43.9); RET-HE 30.4 pg (30-35); Red Blood Count 4.48 M/mm3 (4.6-6.2); Reticulocyte Count 4.13 % (0.5-1.5); White Blood Count 6.6 K/mm3 (4.4-11.0)
[2023-03-23 13:31] LABS: ALB/GLOB Ratio 1.2 RATIO (0.9-2.4); AST(SGOT) 14 U/L (15-37); Alanine Aminotransfer ALT/SGPT 17 U/L (16-61); Albumin, Serum 3.6 g/dL (3.2-5.0); Alkaline Phosphatase 53 U/L (45-117); Anion Gap 5 (5-15); BUN 19 mg/dL (7-18); BUN/Creat Ratio 13.8 RATIO (10-20); Calcium,Total 8.8 mg/dL (8.5-10.1); Chloride 110 mmol/L (98-107); Creatinine, Serum 1.38 mg/dL (0.70-1.30); EST Glomerular Filtration Rate 54 mL/min (>60); Est Glom Filt Rate - Afr Amer 65 mL/min (>60); Globulin 3.1 g/dL (2.2-4.2); Glucose 108 mg/dL (74-106); Potassium 3.7 mmol/L (3.5-5.1); Protein, Total 6.7 g/dL (6.4-8.2); Sodium Level 141 mmol/L (136-145)
[2023-03-23 14:06] LABS: Hemoglobin A1c 5.5 % (3.8-5.6)
== END | disposition home or self-care (01) ==
LOC: MTLAB 11:00
PROVIDERS: PCP Family Medicine; Referring Provider Family Medicine; Visit Provider Family Medicine
DX: N18.9 Chronic kidney disease, unspecified (principal); E11.22 Type 2 diabetes mellitus with diabetic chronic kidney disease; R17 Unspecified jaundice
CPT/HCPCS: 36415; 80053; 83036; 85025; 85045

== ENCOUNTER 2023-04-28 13:30 | Outpatient (RCR) | payer MEDICARE, MEDICAID, SELFPAY ==
--- NOTE | 2023-02-20 07:24 | HP.PTEVAL_ITS ---
Patient's Visit Information Visit Information Visit Information: SHIRLEY DELAROSA is a 72 year old M referred to Physical Therapy by Dr. Murphy Matson MD with a diagnosis of Low back pain, radiculopathy. Date of Evaluation: 02/16/23 Physical Therapist: Omid Hardin DPT Visit Plan Frequency: 1-2x /Week Duration: 4-6 Weeks Plan: Aquatics: begin in deep end for core and LE strengthening, progress to shallow water to increase WB with resisted ROM ex >Core strengthening: begin with TA contraction, progress to low level ex progressing to more core strengthening >Trunk stretching: rotational, lateral side bend >Stairs in aquatic setting Subjective Subjective: Pt has a hx of chronic LBP. Came in for eval in 2022 but pt did not come back for tx. Now here for another round of PT for back pain, possible aquatic therapy. Pain is constant and pt reported it a 5/10, has been receiving injections. Pt reports that pain is mainly in his right side, worse at the end of the day. Pt. reports pain that starts in his back, but does not radiate to his LEs currently. Pt. has neuropathy in his feet, but reports having normal sensation in his legs currently. Pt. is sleeping okay. Pain at worst with standing, walking and bending. Pt. reports his is supposed to have more injections in a few months pending pain. Pt. is hopeful to decrease his pain and be more active. Pain Back: Pain Intensity (Out of 10): 5 Objective Objective: ROM: mod loss in all directions with some discomfort, min loss R rotation. Tightness in [place] hamstrings, soreness with R hip ER MMT: distal [place] LE 5/5, R hip ext 3/5 but generally symmetrical Neuro: normal sensation, has some neuropathy Observations: slow movements when changing positions, more uncomfortable lying supine than seated, prone helped to decrease pain somewhat Palpation: TTP [place] low back paraspinals, worse on R lateral low back Gait: adequate arm swing, slight Trendelenburg [place], waddle gait with slight lateral trunk sway Stairs: painful, heavy UE support, did not complete full flight due to pain and fatigue 5xSTS: 20.1s with some irritation in back Balance/Special Test Scores Oswestry Low Back Score: 28 Goals Goal 1:: Pt will achieve 75% lumbar ROM in all directions with <2/10 pain Goal Time Frame: 4-6 Weeks Goal 2:: Pt will navigate full flight of stairs with reciprocal pattern and <2/10 pain Goal Time Frame: 4-6 Weeks Goal 3:: Pt will perform 5xSTS in 15s or less to demonstrate increase in LE strength and decrease in pain Goal Time Frame: 2 Weeks Goal 4:: Pt will perform 5xSTS in 11s to demonstrate increase in LE strength and activity tolerance Goal Time Frame: 4-6 Weeks Rehabilitation Potential Physical Therapy Diagnosis: Pt presents with stiffness in low back and tightness in low back musculature. Pt. did not have a directional preferrence, but did seem to tolerate extension well with in a small ROM. Pt. would benefit from PT i n aquatic setting in order to increase mobility and get back to all recreational and more active life style. Rehabilitation Potential: Fair Anticipated Interventions Patient/Client Instruction: Educate patient on: Condition, Plan of Care and Benefits of Fitness Program For the Purpose of:: To decrease pain, To increase ROM, To improve muscle performance and motor function, To improve ability to perform ADL's, To increase tolerance to activity/condition/position, To improve performance and independ ence with ADL's, To improve ability of physical actions for home/community/work/leisure, To increase flexibility/ROM, To improve endurance, To improve balance, To improve self management, To improve ability to perform tasks related to life management and To improve tolerance to ADL's Therapeutic Exercise to Include: Strength training, Endurance training, Balance training, Body mechanics, Flexibilty training and Gait and locomotor training For the Purpose of:: To decrease pain, To increase ROM, To improve ability to perform ADL's, To increase tolerance to activity/condition/position, To improve performance and independence with ADL's, To decrease soft tissue restriction, To increase flexibility/ROM, To improve endurance, To improve balance, To improve safety with gait, To improve health and function, To foster healthy habits, To improve self management and To improve ability to perform tasks related to life management Manual Therapy Techniques to Include: Mobilization and Soft tissue mobilization For the Purpose of:: To decrease pain, To increase ROM, To improve health of tissue, To decrease soft tissue restriction and To increase flexibility/ROM Cryotherapy (ice pack, ice massage): Yes Thermo therapy (hot pack): Yes Pelvic traction prone: Yes For the Purpose of:: To decrease pain and To decrease swelling/inflammation Text: Thank you for the opportunity to evaluate your patient. For Medicare and Medicare HMO plans, please review the plan of care and approve it. It will need to be FAXED BACK to us at [phone] for Medicare purposes. For Medicare only, by signing this I certify the plan of care. Please let me know if there are questions or concerns regarding this plan of care. Physician Signature: Date:
== END 2023-04-28 19:00 | disposition home or self-care (01) ==
LOC: PT 13:30
PROVIDERS: PCP Family Medicine; Referring Provider Anesthesiology Pain Medicine; Visit Provider Anesthesiology Pain Medicine
DX: M51.17 Intervertebral disc disorders with radiculopathy, lumbosacral region (principal)
CPT/HCPCS: 97113; 97162; 97530

== ENCOUNTER → 2023-06-20 | Outpatient (CLI) | payer MEDICARE, MEDICAID, SELFPAY ==
[2023-06-20 16:52] LABS: Vitamin B12 154 pg/mL (211-911)
[2023-06-20 16:59] LABS: AST(SGOT) 13 U/L (15-37); Alanine Aminotransfer ALT/SGPT 16 U/L (16-61); Albumin, Serum 3.4 g/dL (3.2-5.0); Alkaline Phosphatase 48 U/L (45-117); Anion Gap 5 (5-15); BUN 20 mg/dL (7-18); BUN/Creat Ratio 16.3 RATIO (10-20); Chloride 111 mmol/L (98-107); Creatinine, Serum 1.23 mg/dL (0.70-1.30); EST Glomerular Filtration Rate 61 mL/min (>60); Est Glom Filt Rate - Afr Amer 74 mL/min (>60); Globulin 3.4 g/dL (2.2-4.2); Glucose 101 mg/dL (74-106); Potassium 3.9 mmol/L (3.5-5.1); Protein, Total 6.8 g/dL (6.4-8.2); Sodium Level 142 mmol/L (136-145); Thyroid Stim Hormone (TSH) 1.63 uIU/mL (0.358-3.74); Uric Acid 7.1 mg/dL (3.5-7.2)
[2023-06-20 18:37] LABS: Absolute Lymphocyte Count 1.19 X10^3/uL (0.83-4.51); Absolute Neutrophil Count 5.1 X10^3/uL (2.0-7.7); Basophil# 0.05 X10^3/uL; Basophil% 0.7 % (0-1); Eosinophil# 0.16 X10^3/uL; Eosinophils% 2.3 % (0-5); Hematocrit 42.3 % (40-54); Hemoglobin 13.9 g/dL (13.0-16.5); Lymphocyte # 1.19 X10^3/ul (0.83-4.51); Lymphocyte % 16.9 % (19-41); Mean Corp Hgb Conc 32.9 g/dL (32-36); Mean Corpuscular Hgb 27.5 pg (27.0-32.0); Mean Corpuscular Volume 83.6 fL (80-94); Mean Platelet Vol. 11.2 fl (6.2-12.0); Monocyte# 0.52 X10^3/uL; Monocyte% 7.4 % (0-10); NRBC Flagged by Analyzer 0 % (0-5); Neutrophil # 5.08 X10^3/uL (2.7-7.7); Neutrophil % 72.3 % (47-70); Platelet Count 132 K/mm3 (150-450); RBC Distribution Width CV 15.7 % (11.6-14.6); RBC Distribution Width SD 47.1 fl (35.1-43.9); Red Blood Count 5.06 M/mm3 (4.6-6.2)
== END | disposition home or self-care (01) ==
LOC: MTLAB 15:08
PROVIDERS: PCP Family Medicine; Referring Provider Family Medicine; Visit Provider Family Medicine
DX: I42.9 Cardiomyopathy, unspecified (principal); R20.2 Paresthesia of skin; M10.9 Gout, unspecified
CPT/HCPCS: 36415; 80053; 82607; 82746; 84443; 84550; 85025

== ENCOUNTER → 2023-07-07 | Outpatient (CLI) | payer MEDICARE, MEDICAID, SELFPAY ==
[2023-07-07 12:21] LABS: Absolute Lymphocyte Count 0.94 X10^3/uL (0.83-4.51); Absolute Neutrophil Count 5.1 X10^3/uL (2.0-7.7); Basophil# 0.04 X10^3/uL; Basophil% 0.6 % (0-1); Eosinophil# 0.16 X10^3/uL; Eosinophils% 2.4 % (0-5); Hematocrit 40.6 % (40-54); Hemoglobin 13.1 g/dL (13.0-16.5); Lymphocyte # 0.94 X10^3/ul (0.83-4.51); Lymphocyte % 13.9 % (19-41); Mean Corp Hgb Conc 32.3 g/dL (32-36); Mean Corpuscular Hgb 27.6 pg (27.0-32.0); Mean Corpuscular Volume 85.5 fL (80-94); Mean Platelet Vol. 10.5 fl (6.2-12.0); Monocyte# 0.51 X10^3/uL; Monocyte% 7.5 % (0-10); NRBC Flagged by Analyzer 0 % (0-5); Neutrophil % 75.3 % (47-70); Platelet Count 162 K/mm3 (150-450); RBC Distribution Width SD 48.9 fl (35.1-43.9); Red Blood Count 4.75 M/mm3 (4.6-6.2); White Blood Count 6.8 K/mm3 (4.4-11.0)
[2023-07-07 12:49] LABS: AST(SGOT) 14 U/L (15-37); Alanine Aminotransfer ALT/SGPT 19 U/L (16-61); Albumin, Serum 3.5 g/dL (3.2-5.0); Alkaline Phosphatase 57 U/L (45-117); Anion Gap 5 (5-15); BUN 16 mg/dL (7-18); BUN/Creat Ratio 12.3 RATIO (10-20); Chloride 107 mmol/L (98-107); EST Glomerular Filtration Rate 58 mL/min (>60); Est Glom Filt Rate - Afr Amer 70 mL/min (>60); Globulin 3.4 g/dL (2.2-4.2); Glucose 108 mg/dL (74-106); Potassium 3.8 mmol/L (3.5-5.1); Protein, Total 6.9 g/dL (6.4-8.2); Sodium Level 138 mmol/L (136-145); Uric Acid 3.8 mg/dL (3.5-7.2)
[2023-07-07 13:12] LABS: Syphilis Antibodies Non-reactive
[2023-07-10 14:08] LABS: PROEL- A/G Ratio 1.2 (0.7-1.7); PROEL- Albumin 3.4 g/dL (2.9-4.4); PROEL- Alpha-1 Globulin 0.2 g/dL (0.0-0.4); PROEL- Alpha-2 Globulin 0.7 g/dL (0.4-1.0); PROEL- Globulin, Total 2.9 g/dL (2.2-3.9); PROEL- TOTAL PROTEIN 6.3 g/dL (6.0-8.5); PROEL-M-Spike Not Observed g/dL (Not Observed)
[2023-07-11 08:11] LABS: Anti-Centromere B Ab <0.2 AI (0.0-0.9); Anti-Chromatin <0.2 AI (0.0-0.9); Anti-Jo <0.2 AI (0.0-0.9); Anti-Nuclear Antibody Test Negative (.); Anti-Scleroderma-70 AB <0.2 AI (0.0-0.9); Anti-dsDNA Ab 2 IU/mL (0-9); RNP Ab <0.2 AI (0.0-0.9); SJOGREN'S Anti-SS-A test < 0.2 AI (0.0-0.9); SJOGREN'S Anti-SS-B test < 0.2 AI (0.0-0.9); Smith Ab <0.2 AI (0.0-0.9)
== END | disposition home or self-care (01) ==
LOC: MFPLAB 10:13
PROVIDERS: PCP Family Medicine; Visit Provider Family Medicine
DX: L93.2 Other local lupus erythematosus (principal)
CPT/HCPCS: 36415; 80053; 84165; 84550; 85025; 86038; 86225; 86235; 86780

== ENCOUNTER → 2023-09-26 | Outpatient (CLI) | payer MEDICARE, MEDICAID, SELFPAY ==
--- NOTE | 2023-09-26 15:22 | RAD_ITS ---
INDICATION: PAIN EXAMINATION/TECHNIQUE: X-RAY - XR Spine Lumbar Comp W/ Bending Min 6 Views COMPARISON: X-rays lumbar spine 04/19/2022 FINDINGS: The vertebral bodies are normal in height. No definite fracture demonstrated. No subluxation. Disc space narrowing and osteophytes at all levels. Facet arthropathy most pronounced at L3-4 through L5-S1. No paravertebral soft tissue mass identified. Flexion/extension: Suboptimal flexion. No subluxation with flexion or extension. RAD/L/S Spine Comp/w Bending Views IMPRESSION: Extensive degenerative changes. No significant change compared to prior. Electronically Signed: Leonila Honeycutt MD at 8:16 EDT ,
== END | disposition home or self-care (01) ==
LOC: MTRAD 15:19
PROVIDERS: PCP Family Medicine; Referring Provider Anesthesiology Pain Medicine; Visit Provider Anesthesiology Pain Medicine
DX: M51.37 Other intervertebral disc degeneration, lumbosacral region (principal)
CPT/HCPCS: 72114

== ENCOUNTER → 2024-07-10 | Outpatient (CLI) | payer MEDICARE, MEDICAID, SELFPAY ==
[2024-07-10 15:48] LABS: Absolute Lymphocyte Count 1.13 X10^3/uL (0.83-4.51); Absolute Neutrophil Count 5.5 X10^3/uL (2.0-7.7); Basophil# 0.06 X10^3/uL; Basophil% 0.8 % (0-1); Eosinophils% 2.7 % (0-5); Hematocrit 40.2 % (40-54); Lymphocyte # 1.13 X10^3/ul (0.83-4.51); Lymphocyte % 15.1 % (19-41); Mean Corp Hgb Conc 32.3 g/dL (32-36); Mean Corpuscular Hgb 27.6 pg (27.0-32.0); Mean Corpuscular Volume 85.4 fL (80-94); Mean Platelet Vol. 10.7 fl (6.2-12.0); Monocyte# 0.56 X10^3/uL; Monocyte% 7.5 % (0-10); NRBC Flagged by Analyzer 0 % (0-5); Neutrophil # 5.51 X10^3/uL (2.7-7.7); Neutrophil % 73.5 % (47-70); Platelet Count 154 K/mm3 (150-450); RBC Distribution Width CV 15.9 % (11.6-14.6); RBC Distribution Width SD 49.1 fl (35.1-43.9); Red Blood Count 4.71 M/mm3 (4.6-6.2); White Blood Count 7.5 K/mm3 (4.4-11.0)
[2024-07-10 16:13] LABS: ALB/GLOB Ratio 1.3 RATIO (0.9-2.4); AST(SGOT) 21 U/L (<=37); Alanine Aminotransfer ALT/SGPT 13 U/L (<=46); Alkaline Phosphatase 68 U/L (40-129); Anion Gap 12 (5-15); BUN 14 mg/dL (4-19); BUN/Creat Ratio 10.3 RATIO (10-20); Carbon Dioxide 23.4 mmol/L (21.0-32.0); Chloride 107 mmol/L (98-108); Cholesterol 127 mg/dL (<=200); Creatinine, Serum 1.31 mg/dL (0.70-1.20); EST Glomerular Filtration Rate 57 (>60); Glucose 162 mg/dL (70-99); High Density Lipoprotein 27 mg/dL; Low Density Lipoprotein Calc. 82 mg/dL; Potassium 3.8 mmol/L (3.3-5.1); Sodium Level 142 mmol/L (133-145); Triglycerides 92 mg/dL; Very Low Density Lipoprotein 18 mg/dL (5-40)
[2024-07-10 16:43] LABS: Microalbumin:Creatinine Ratio 556.8 mg/g CRE
== END | disposition home or self-care (01) ==
LOC: MFPLAB 12:15
PROVIDERS: PCP Family Medicine; Referring Provider Family Medicine; Visit Provider Family Medicine
DX: E11.22 Type 2 diabetes mellitus with diabetic chronic kidney disease (principal); N18.9 Chronic kidney disease, unspecified
CPT/HCPCS: 36415; 80053; 80061; 82043; 82570; 85025

== ENCOUNTER → 2024-08-16 | Outpatient (CLI) | payer MEDICARE, MEDICAID, SELFPAY ==
--- NOTE | 2024-08-16 17:15 | RAD_ITS ---
PROCEDURE: RIBS UNI MIN 3V W/PA CHEST 08/16/2024 REASON FOR EXAM: PAIN RIBS TECHNIQUE: RIBS UNI MIN 3V W/PA CHEST COMPARISON: Prior examination on 09/26/2019 FINDINGS: The lungs are expanded. Minimal linear atelectatic changes are seen in the lung bases. There is no demonstrated parenchymal abnormality. There is no demonstrated pleural abnormality. The heart is enlarged. Left-sided pacemaker again seen. Normal mediastinum and fernando. Normal visualized pulmonary arteries. Normal visualized aortic arch and descending thoracic aorta. The bones are osteoporotic. Normal visualized thoracic spine. Normal visualized clavicles, and shoulders. There is slight deformity of right ribs 6 and 11 possibly representing nondisplaced right-sided rib fractures. There is no demonstrated abnormality of the visualized soft tissue structures of the upper abdomen. RAD/Ribs Uni Min 3V w/PA Chest IMPRESSION: Osteoporosis. Possible nondisplaced fractures of right ribs 6 and 11. Please correlate clini jackie. Cardiomegaly. Minimal linear atelectatic changes in the lung bases. [facility]
== END | disposition home or self-care (01) ==
PROVIDERS: PCP Family Medicine; Referring Provider Family Medicine; Visit Provider Family Medicine
DX: R07.89 Other chest pain (principal)
CPT/HCPCS: 71101

== ENCOUNTER → 2024-08-22 | Outpatient (CLI) | payer MEDICARE, MEDICAID, SELFPAY ==
--- NOTE | 2024-08-22 15:42 | BD_ITS ---
PROCEDURE: DEXA BONE DENSITY STUDY 08/22/2024 REASON FOR EXAM: M, age 73 y/o . TECHNIQUE: DEXA BONE DENSITY STUDY COMPARISON: None FINDINGS: BMD and T-SCORES Lumbar spine: 1.001 g/cm2, T-score -0.8 Levels: L1 through L4 Left femoral neck: 0.649 g/cm2, T-score -2.1 Femoral neck comparison data not recommended for monitoring change. Left total hip: 1.039 g/cm2, T-score 0.0 Right femoral neck: 0.636 g/cm2, T-score -2.2 Femoral neck comparison data not recommended for monitoring change. Right total hip: 0.994 g/cm2, T-score -0.3 The World Health Organization has defined the following categories based on bone density: Normal bone density: T-score equal to or greater than -1.0 Osteopenia: T-score between -1.0 and -2.5 Osteoporosis: T-score equal to or less than -2.5 FRAX (or Comparable) Fracture Risk Assessment: 10 Year Probability of Fracture: Major Osteoporotic Fracture: 11% Hip Fracture: 4.1% (Note: FRAX is not to be reported in setting of normal range bone density, osteoporosis on DEXA, known history of osteoporosis, prior osteoporotic hip or vertebral fracture, or for any patient undergoing pharmacological treatment for bone loss.) The National Osteoporosis Foundation (NOF) recommends pharmacological treatment for patients with a FRAX 10-year risk of 3% or higher for a hip fracture, or 20% or higher for a major osteoporotic fracture, to prevent osteoporosis and reduce fracture risk. The patient does meet the pharmacological treatment recommendations for prevention of osteoporosis. BD/Dexa Bone Density Study IMPRESSION: OSTEOPENIA. Reading Location: [id number]
--- OUTSIDE RECORDS SUMMARY | 2024-08-22 20:41 | XMS RPT_ITS | CCD ---
Author Organization [facility] Care Team Providers Care Neon Sign Mechanic Name Role Phone Lashae Driver Unavailable Unavailable MYNOR MENDOZA Unavailable Unavailable Owen, Marciano Unavailable Unavailable Owen, Marciano Unavailable Unavailable Jose D Moser Unavailable Unavailable Owen, Marciano Unavailable Unavailable Owen, Marciano Unavailable Unavailable Owen, Marciano Unavailable Unavailable Owen, Marciano Unavailable Unavailable Kathrine Amos Unavailable Unavailable Marciano Weaver Primary Care Provider Shai Zayas Unavailable Mynor Mendoza Unavailable Marciano Weaver MD Primary Care Provider Mynor Mendoza MD Unavailable Daja Steward Unavailable Roderick Brizuela Unavailable Marciano Weaver MD Primary Care Provider Mynor Mendoza MD Unavailable [phone] Daja Steward Unavailable Roderick Brizuela Unavailable Marciano Weaver MD Primary Care Provider Mynor Mendoza MD Unavailable Daja Steward Unavailable Roderick Brizuela Unavailable Dr. Marciano Weaver Primary Care Provider Dr. Marciano Weaver Referring Provider Dr. Mera Eddy Attending Provider Lula Shafer Attending Provider Unavailable Dandre COMBAT CONTROL, COMBAT CONTROL-C Kathrine Manzano Attending Provider Dr. Marciano Weaver Primary Care Provider [phone] Dr. Marciano Weaver Referring Provider [phone] Mera Eddy Attending Provider Lula Shafer Attending Provider Unavailable Dandre COMBAT CONTROL, COMBAT CONTROL-C Kathrine Manzano Attending Provider Dr. Roderick Brizuela Attending Provider Dr. Henry Mendoza Attending Provider Dr. Shyam Soni Attending Provider Dr. Marciano Weaver Primary Care Provider [phone] Dr. Marciano Weaver Referring Provider [phone] Mera Eddy Attending Provider [phone] Lula Shafer Attending Provider Unavailable Owen GOMEZ, Marciano Mcintosh Primary Care Provider Daja Steward Unavailable Roderick Brizuela MD Unavailable Dr. Shyam Soni Attending Provider [phone] Shayna COMBAT CONTROL, COMBAT CONTROL-C Eri Attending Provider Dr. Marciano Weaver Primary Care Provider Dr. Marciano Weaver Referring Provider Shayna COMBAT CONTROL, COMBAT CONTROL-C Eri Attending Provider OWEN GOMEZ, MARCIANO A Primary Care Physician Katie Peng Unavailable Unavailable LYDIA KELLY Attending Unavailable OWEN GOMEZ, MARCIANO A Primary Care Unavailable LYDIA KELLY Admitting Unavailable DEBBIE DOAN MD Consulting Unavailable LYDIA KELLY Attending Unavailable MARCIANO WEAVER MD A Primary Care Unavailable LYDIA KELLY Attending Unavailable OWEN GOMEZ, MARCIANO Mcintosh Primary Care Unavailable SATHISH WASHINGTON DO Consulting Unavail KATHRINE Segal MD Attending Unavailable OWEN GOMEZ, MARCIANO A Primary Care Unavailable Owen GOMEZ, Marciano A Primary Care Provider Wali Bravo MD Unavailable MARCIANO WEAVER Primary Care Unavailable MYNOR JOYCE Admitting Unavailable MIGUEL CESPEDES Attending Unavailabl e WEAVER, MARCIANO A Primary Care Unavailable WEAEVR, MARCIANO A Primary Care Unavailable Owen GOMEZ, Dr. Haji Primary Care Provider Owen GOMEZ, Dr. Haji Attending Provider Owen GOMEZ, Dr. Haji Referring Provider Surjit LINCOLN, Dr. Can Attending Provider Shayna COMBAT CONTROL, Eri Attending Unavailable Weaver, Marciano Primary Care Unavailable Weaver, Marciano Referring Unavailable Weaver, Marciano Primary Care Unavailable DanoMurphy Attending Unavailable DanoMurphy Referring Unavailable Weaver, Marciano Primary Care Unavailable Weaver, Marciano Attending Unavailable Weaver, Marciano Referring Unavailable Weaver, Marciano Primary Care Unavailable Weaver, Marciano Attending Unavailable Al Espinoza Attending Unavailable Al Espinoza Referring Unavailable Weaver, Marciano Primary Care Unavailable Weaver, Marciano Primary Care Unavailable Juju Winston Attending Unavailable Weaver, Marciano Referring Unavailable Mera Eddy Attending Unavailable Weaver, Marciano Referring Unavailable Weaver, Marciano Primary Care Unavailable WENCIL, LUCIE Referring Unavailable WEAVER, MARCIANO A Primary Care Unavailable WENCIL, LUCIE Referring Unavailable WEAVER, MARCIANO A Primary Care Unavailable WENCIL, LUCIE Attending Unavailable WEAVER, MARCIANO A Primary Care Unavailable SROUBEK, WALI Referring Unavailable WEAVER, MARCIANO A Primary Care Unavailable ARTURO COBOS Attending Unavailable WEAVER, MARCIANO A Primary Care Unavailable SROUBEK, WALI Referring Unavailable WEAVER, MARCIANO A Primary Care Unavailable SROUBEK, WALI Referring Unavailable WEAVER, MARCIANO A Primary Care Unavailable SROUBEK, WALI Attending Unavailable SELF Referring Unavailable WEAVER, MARCIANO A Primary Care Unavailable SROUBEK, WALI Referring Unavailable WEAVER, MARCIANO A Primary Care Unavailable SROUBEK, WALI Referring Unavailable WEAVER, MARCIANO A Primary Care Unavailable Desirae GOMEZ, Wali Unavailable Olga GOMEZ, Dr. Melendez Attending Provider Dr. Al Espinoza MD Referring Provider [phone] Allergies Allergy Classification Reported Allergen(s) Allergy Type Date of Onset Reaction(s) Facility (4 sources) moxifloxacin; Translations: [moxifloxacin] Drug Allergy 1 [facility] Work Phone: (1 source) Moxifloxacin Hcl In Nacl Propensity to adverse reactions to drug 2 Hives [facility] (20 sources) moxifloxacin; Translations: [MOXIFLOXACIN HCL] Drug Allergy 3 Hives [facility] (1 source) moxifloxacin Drug Allergy 5 [facility] Repository Medications Current Medications Medication Drug Class(es) Dates Sig (Normalized) Sig (Original) allopurinol 300 mg oral tablet (15 sources) Xanthine Oxidase Inhibitor Start: 06-30-2023 allopurinol 300 mg oral tablet Dose : 300 mg = 1 tab(s), Oral, qDayPC, 0 Refill(s) Start Date: 06/30/23 Status: Ordered Start: 06-10-2020 End: 12-29-2023 take 1 tablet by mouth once daily Allopurinol 100 mg tablet Discontinued 100 mg PO DAILY December 25, 2020 1:00am December 29, 2023 3:34pm ascorbic acid 500 mg oral capsule (20 sources) Vitamin C Start: 12-29-2023 Ascorbic Acid (Vitamin C) 500 mg capsule Active mg PO December 29, 2023 1:00am take 1 tablet by mouth once robin y ascorbic acid, vitamin C, (VITAMIN C) 500 mg tablet Take 500 mg by mouth once daily. Active Comment on above: Take 500 mg by mouth once daily. aspirin 81 mg delayed release oral tablet (20 sources) Nonsteroidal Anti-inflammatory Drug Start: 11-18-2017 Aspirin (Adult Low Dose Aspirin) 81 mg tablet,delayed release (DR/EC) Active 81 mg PO DAILY November 18, 2019 12:00am Start: 03-09-2015 End: 04-09-2015 take 1 tablet by mouth once daily ASPIRIN 325 MG TABS One tablet by mouth daily ASPIRIN [id number] Corinna London Start: 03-09-2015 take 1 tablet by kim th once daily ASPIRIN 81 MG TABS One tablet by mouth daily ASPIRIN [id number] Croinna London Start: 01-07-2011 End: 03-09-2015 take 1 tablet by mouth once daily ECOTRIN 325 MG TBEC One tablet by mouth daily ASPIRIN [id number] Kiarra Garcia Comment on above: Take 1 tablet by kim once daily. Breztri Aerosphere 160 mcg-9 mcg-4.8 mcg/inh inhalation aerosol (2 sources) Start: 10-12-19 take 1 puff(s) by inhalation twice daily Breztri Aerosphere 160 mcg-9 mcg-4.8 mcg/inh inhalation aerosol puff(s), Inhalation, BID, 0 Refill(s) Start Date: 10/11/22 Status: Ordered [id number] rmoterol (3 sources) Corticosteroid, beta2-Adrenergic Agonist Start: 12-29-19 Budesonide-Glycopy r-Formoterol (Breztri Aerosphere) 160-9-4.8 mcg/actuation HFA aerosol inhaler Active 2 NMA INHALATION ONCE December 29, 2023 1:00am 24 hr buPROPion hydrochloride 150 mg extended release oral tablet (20 sources) Aminoketone Start: 11-19-19 take 1 tablet by mouth every hour, then take 1 tablet by mouth twice daily buPROPion 150 mg/24 hours (XL) oral tablet, extended release Dose : 150 mg = 1 tab(s), Oral, BID, 0 Refill(s) Start Date: 11/18/17 Status: Ordered Start: 05-21-2015 take 1 tablet by kim at bedtime BUPROPION HCL ER (SR) 150 MG [id number] One tablet by mouth at bedtime. BUPROPION HCL [id number] Shyam Soni MD Start: 05-15-2015 take 1 tablet by kim twice daily Bupropion Hcl 150 MG tablet extended release 24 hr Active 150 mg PO TWICE A DAY May 15, 2015 12:00am depression Start: 03-19-2015 take 1 tablet by kim once daily buPROPion XL (WELLBUTRIN XL) 150 mg 24 hr tablet Take 150 mg by mouth once daily. 03/19/2015 Active Comment on above: Take 150 mg by mouth once daily. capsaicin 0.25 mg/ml topical cream (20 sources) capsaicin (ZOSTR IX) 0.025 % cream Apply to affected area three times daily. Active Comment on above: Apply to affected ar ea three times daily. carvedilol 3.125 mg oral tablet (20 sources) alpha-Adrenergic Liv, beta-Adrenergic Liv Start: 12-29-2023 take 1 tablet by mouth twice daily at mealtime Carvedilol 3.125 mg tablet Active 3.125 mg PO TWICE A DAY December 29, 2023 1:00am must administer with a meal/food Start: 10-05-2021 End: 01-06-2022 take 1 tablet by mouth twice daily at mealtime Carvedilol 6.25 mg tablet Discontinued 6.25 mg PO TWICE A DAY 180 4 November 02, 2021 12:04pm January 06, 2022 4:51pm must administer with a meal/food Start: 12-25-2020 End: 10-05-2021 take 1 tablet by mouth twice daily at mealtime Carvedilol 3.125 mg tablet Discontinued 3.125 mg PO TWICE A DAY December 25, 2020 1:00am October 05, 2021 9:18am must administer with a meal/food Start: 02-17-2020 take 3.125 mg by kim th twice daily at mealtime carvedilol (COREG) 6.25 mg tablet Take 3.125 mg by mouth twice daily with meals. 02/17/2020 Active Start: 09-25-2019 End: 12-25-2020 take 6.25 mg by mouth twice daily Carvedilol 12.5 mg tablet Discontinued 6.25 mg PO TWICE A DAY September 25, 2019 3:41pm December 25, 2020 4:29pm blood pressure Start: 09-25-2019 End: 12-25-2020 take 6.25 mg by mouth twice daily Carvedilol Discontinued 6.25 MG PO TWICE A DAY September 25, 2019 2:41pm December 25, 2020 3:29pm Start: 09-24-2018 End: 10-12-2018 take 2 tablets by mouth twice daily Carvedilol (Coreg) 6.25 mg tablet Discontinued 12.5 mg PO TWICE A DAY September 24, 2018 12:00am October 12, 2018 1:55pm Start: 07-08-2013 End: 08-21-2017 Carvedilol 25 MG tablet Discontinued 12.5 mg PO TWICE A DAY July 08, 2013 12:00am August 21, 2017 2:06pm Start: 07-08-2013 End: 08-21-2017 take 12.5 mg by mouth twice daily Carvedilol Discontinued 12.5 MG PO TWICE A DAY July 07, 2013 11:00pm August 21, 2017 1:06pm Start: 05-19-2011 take 1 tablet by kim th twice daily COREG 25 MG TABS One tablet by mouth twice daily CARVEDILOL [id number] Ton Lamb MD Start: 01-14-2011 End: 12-29-2023 take 1 tablet by mouth twice daily at mealtime Carvedilol 12.5 mg tablet Discontinued 12.5 mg PO TWICE A DAY 180 4 March 06, 2023 9:21am December 29, 2023 3:31pm must administer with a meal/food Start: 01-07-2011 take 1 tablet by kim th twice daily COREG 3.125 MG TABS One tablet by mouth twice daily CARVEDILOL [id number] Kiarra Garcia Comment on above: Take 3.125 mg by kim th twice daily with meals. cholecalciferol 0.025 mg oral capsule (3 sources) Vitamin D Start: 12-29-19 take 1 capsule by mouth once daily Cholecalciferol (Vitamin D3) 25 mcg (1,000 unit) capsule Active 25 ug PO daily December 29, 2023 1:00am CPAP (20 sources) Start: 08-06-19 CPAP Indications: Obstructive sleep apnea (adult) (pediatric) Please lower PAP to 15/11 cmH2O. Please send us 2 week download at new pressure. 1 Each 999 08/05/2021 Active Start: 06-15-2020 CPAP Indicatio ns: Obstructive sleep apnea (adult) (pediatric) Increase bilevel to 22/18 cmH2O with backup rate of 12 BPM. Also please refit patient's dreamwear FFM - the headgear/tubing is likely one size too small and thus pulling up on nose through the night. DME = [facility] 1 Device 06/15/2020 Active Start: 12-25-2019 CPAP Indicatio ns: Obstructive sleep apnea , Central sleep apnea Please adjust bilevel to 17/13 cmH2O and turn off backup rate. Please provide download in 2-3 weeks. Please fit with dreamwear full face mask (under nose - med frame, large cushion). 1 Device 12/25/2019 Active Start: 10-12-2017 CPAP Change bi level setting to 20/15 cmH2O with BR 16 BPM. Please fax us download in 2 weeks. 1 Device 10/12/2017 Active Start: 10-12-2017 CPAP Change bi level setting to 20/15 cmH2O with BR 16 BPM. Please fax us download in 2 weeks. 1 Device 0 10/12/2017 Active Comment on above: Change bilevel setti ng to 20/15 cmH2O with BR 16 BPM. Please fax us download in 2 weeks. Please adjust bileve l to 17/13 cmH2O and turn off backup rate. Please provide download in 2-3 weeks. Please fit with dreamwear full face mask (under nose - med frame, large cushion). Increase bilevel to 22/18 cmH2O with backup rate of 12 BPM. Also please refit patient's dreamwear FFM - the headgear/tubing is likely one size too small and thus pulling up on nose through the night. DME = [facility] Please lower PAP to 15/11 cmH2O. Please send us 2 week download at new pressure. dapagliflozin 10 mg oral tablet (6 sources) Sodium-Glucose Cotransporter 2 Inhibitor Start: 12-29-19 take 1 tablet by mouth once daily in the morning Dapagliflozin Propanediol (Farxiga) 10 mg tablet Active 10 mg PO EVERY MORNING December 29, 2023 1:00am Start: 10-11-2022 take 1 tablet by kim th once daily in the morning Farxiga 10 mg oral tablet Dose : 10 mg =, Oral, qAM, 0 Refill(s) Start Date: 10/11/22 Status: Ordered 0.5 ML dulaglutide 6 MG/ML Auto-Injector [Trulicity] (20 sources) GLP-1 Receptor Agonist Start: 03-20-2023 inject 0.5 mL by subcutaneous injection every week Trulicity Pen 3 mg/0.5 mL subcutaneous solution INJECT 0.5 ML UNDER THE SKIN WEEKLY Start Date: 03/20/23 Status: Ordered Start: 12-19-2021 End: 06-03-2022 Dulaglutide (Trulicity) 1.5 mg/0.5 mL pen injector Active mL SC January 06, 2022 1:00am Start: 10-26-2021 End: 12-21-2021 inject 0.75 mg by subcutaneous injection every week dulaglutide (TRULICITY) 0.75 mg/0.5 mL pen injector Inject 0.75 mg subcutaneously one time a week. 2 mL 1 10/26/2021 12/19/2021 Discontinued Comment on above: Inject 0.75 mg subcu taneously one time a week. Inject 1.5 mg subcut aneously one time a week. Dulera 200 mcg-5 mcg/inh Metered Dose Inhaler (1 source) Start: 06-30-19 take 1 dose by inhalation twice daily as needed for wheezing Dulera 200 mcg-5 mcg/inh Metered Dose Inhaler Dose = 2 puff(s), Inhalation, BID, PRN Shortness of breath or wheezing, 0 Refill(s) Start Date: 06/30/23 Status: Ordered 2 ml dupilumab 150 mg/ml auto-injector (3 sources) Interleukin-4 Receptor alpha Antagonist Start: 12-29-19 Dupilumab (Dupixent Pen) 300 mg/2 mL pen injector Active 300 mg SC MONTHLY December 29, 2023 1:00am famotidine 40 mg oral tablet (20 sources) Histamine-2 Receptor Antagonist Start: 12-29-19 take 1 tablet by mouth once daily Famotidine 40 mg tablet Active 40 mg PO daily December 29, 2023 1:00am Start: 04-27-2020 End: 12-25-2020 take 1 tablet by mouth at bedtime Famotidine 40 mg tablet Discontinued 40 mg PO AT BEDTIME April 27, 2020 12:00am December 25, 2020 4:29pm Start: 12-26-2019 End: 04-27-2020 take 2 tablets by mouth twice daily Famotidine 20 mg tablet Discontinued 40 mg PO TWICE A DAY December 26, 2019 11:52am April 27, 2020 3:18pm reflux Start: 12-26-2019 End: 04-27-2020 take 40 mg by mouth twice daily Famotidine Discontinue d 40 MG PO TWICE A DAY December 26, 2019 10:52am April 27, 2020 2:18pm Start: 10-10-2018 End: 12-26-2019 take 1 tablet by mouth twice daily Famotidine 20 mg tablet Discontinued 20 mg PO TWICE A DAY October 12, 2018 12:00am December 26, 2019 11:54am reflux Start: 05-15-2015 End: 05-29-2017 take 1 tablet by mouth once daily Famotidine 20 MG tablet Discontinued 20 mg PO DAILY May 15, 2015 12:00am May 29, 2017 12:54pm Start: 03-09-2015 End: 03-10-2015 take 1 tablet by mouth twice daily FAMOTIDINE 20 MG TABS One tablet by mouth twice daily FAMOTIDINE [id number] Shyam Soni MD febuxostat 80 mg oral tablet (3 sources) Xanthine Oxidase Inhibitor Start: 12-29-2023 take 1 tablet by mouth once daily Febuxostat (Uloric) 80 mg tablet Active 80 mg PO daily December 29, 2023 1:00am flash glucose scanning reader (FREESTYLE CASSANDRA 2 READER) (20 sources) flash glucose scanning reader (FREESTYLE CASSANDRA 2 READER) Active Fluticasone Propionate (20 sources) Corticosteroid Start: 12-29-2023 take 100 ug by inhalation twice daily Fluticasone Propionate (Flovent Diskus) 100 mcg/actuation blister with device Active 1 NMA INHALATION TWICE A DAY December 29, 2023 1:00am Start: 11-22-2018 Fluticasone Fu roate 100 blister with device Active 1 NMA INHALATION NEEDED as needed for Sob &/Or Wheezing November 22, 2018 12:00am Start: 11-22-2018 Fluticasone Fu roate Active 1 PUFF INHALATION NEEDED November 21, 2018 11:00pm Start: 02-16-2017 End: 10-25-2017 take 100 ug by inhalation once daily Fluticasone Furoate (Arnuity Ellipta) 100 mcg/actuation blister with device Discontinued 1 NMA INHALATION daily February 16, 2017 1:00am October 25, 2017 4:28pm Start: 11-29-2016 ARNUITY ELLIPT A 100 MCG/ACT AEPB One puff daily FLUTICASONE FUROATE [id number] Roderick Brizuela Start: 05-21-2015 take 2 puff(s) by in halation twice daily FLOVENT DISKUS 100 MCG/BLIST AEPB 2 puffs twice daily FLUTICASONE PROPIONATE (INHAL) [id number] Eri Corral CNP Start: 05-21-2015 FLOVENT DISKUS 100 MCG/BLIST AEPB as directed FLUTICASONE PROPIONATE (INHAL) [id number] Shyam Soni MD Start: 05-15-2015 End: 03-06-2017 Fluticasone Propionate 1 INH ALER inhaler Discontinued 2 NMA INHALATION TWICE A DAY May 15, 2015 12:00am March 06, 2017 3:10pm Start: 05-15-2015 End: 03-06-2017 take 1 puff(s) by inhalation twice daily Fluticasone Propionate Discontinued 2 PUFF INHALATION TWICE A DAY May 14, 2015 11:00pm March 06, 2017 2:10pm take 1 puff(s) by in halation twice daily Fluticasone Propionate (FLOVENT DISKUS) 100 mcg/actuation Inhale 1 Puff as instructed twice daily. After Advair Active Comment on above: Inhale 1 Puff as ins tructed twice daily. After Advair 60 actuat fluticasone propionate 0.5 mg/actuat / salmeterol 0.05 mg/actuat dry powder inhaler (20 sources) Corticosteroid, beta2-Adrenergic Agonist Start: 11-22-2019 take 1 puff(s) by inhalation twice daily ADVAIR DISKUS 500-50 mcg/dose dsdv INHALE ONE PUFF INTO THE LUNGS TWICE DAILY 11/22/2019 Active Start: 01-07-2011 End: 03-09-2015 ADVAIR DISKUS 250-50 MCG/DOS E AEPB Take as directed FLUTICASONE-SALMETEROL [id number] Corinna London Comment on above: INHALE ONE PUFF INTO THE LUNGS TWICE DAILY Fluticasone Propionate, Inhal, (FLOVENT DISKUS IN) (1 source) take 1 puff(s) by inhalation twice daily Fluticasone Propionate, Inhal, (FLOVENT DISKUS IN) take 1 puff by inhalation 2 times daily. 0 Active furosemide 40 mg oral tablet (20 sources) Loop Diuretic Start: 0 Furosemide 40 mg tablet Active 20 mg PO DAILY November 18, 2019 3:43pm diuretic Start: 11-18-2019 take 20 mg by mouth once daily Furosemide Active 20 MG PO DAILY November 18, 2019 2:43pm Start: 03-09-2015 End: 11-18-2019 take 1 tablet by mouth once daily Furosemide 40 MG tablet Discontinued 40 mg PO DAILY November 23, 2018 12:00am November 18, 2019 3:43pm diuretic Start: 03-09-2015 take 1 tablet by kim th once daily FUROSEMIDE 20 MG TABS One tablet by mouth daily FUROSEMIDE [id number] Pearl Plummer PA-C Comment on above: Take 20 mg by mouth once daily. 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 Discontinue saline lock post exam. If Pt. has a central line or IVAD, may access for administration according to line specific nursing protocol. Once exam is complete flush line and de-access according to line specific nursing protocol in the CT contrast administration guidelines link. 1 Each 03/05/2024 Active ketoconazole 20 mg/ml topical cream (3 sources) Azole Antifungal Start: 10-11-19 19 ketoconazole 2% topical cream See Instructions, PRN Cold symptoms, Topical qDay to legs, 0 Refill(s) Start Date: 10/10/18 Status: Ordered Magnesium Aspart,Citrate,Oxide 400 mg magnesium capsule (6 sources) Start: 12-26-19 take 1 capsule by mouth twice daily Magnesium Aspart,Citrate,Oxide 400 mg magnesium capsule Active 400 mg PO TWICE A DAY December 26, 2019 11:53am Start: 09-17-2019 End: 12-26-2019 Magnesium Aspart,Citrate,Oxi de 400 mg magnesium capsule Discontinued mg PO September 17, 2019 12:00am December 26, 2019 11:54am magnesium oxide 400 mg oral tablet (20 sources) take 1 tablet by mouth twice daily magnesium oxide 400 mg magnesium tab Take 400 mg by mouth twice daily. Active Comment on above: Take 400 mg by mouth twice daily. Magnesium Oxide,Aspartate,Citr (14 sources) Start: 12-26-2019 take 400 mg by mouth twice daily Magnesium Oxide,Aspartate,Citr Active 400 MG PO TWICE A DAY December 26, 2019 11:53am Start: 12-26-2019 take 400 mg by mouth twice daily Magnesium Oxide,Aspartate,Citr Active 40 0 MG PO TWICE A DAY December 26, 2019 10:53am Start: 09-17-2019 End: 12-26-2019 Magnesium Oxide,Aspartate,Ci tr Discontinued MG PO September 17, 2019 12:00am December 26, 2019 11:54am Start: 09-17-2019 End: 12-26-2019 Magnesium Oxide,Aspartate,Ci tr Discontinued MG PO September 16, 2019 11:00pm December 26, 2019 10:54am metFORMIN hydrochloride 500 mg oral tablet (20 sources) Biguanide Start: 06-30-2023 MetFORMIN (Eqv -Fortamet) 500 mg oral tablet, EXTENDED RELEASE Dose : 500 mg = 1 tab(s), Oral, BID, 0 Refill(s) Start Date: 06/30/23 Status: Ordered Start: 06-28-2021 take 1000 mg by mout h once daily Metformin Active 1000 MG PO DAILY June 28, 2021 1:15pm Start: 06-02-2021 End: 10-30-2022 take 3 tablets by mouth once daily, then take 2 tablets by mouth at breakfast, then take 1 tablet by mouth at dinner metFORMIN ER (GLUCOPHAGE XR) 500 mg 24 hr tablet Take 3 tablets by mouth once daily. Patient may take 2 pills with breakfast and one with dinner 90 tablet 09/30/2022 Active Start: 12-25-2020 End: 06-28-2021 take 1 tablet by mouth once daily Metformin 500 mg tablet extended release 24hr Active 1000 mg PO DAILY June 28, 2021 2:15pm Start: 06-10-2020 End: 07-30-2021 metFORMIN (GLUCOPHAGE) 500 m g tablet Start: 09-17-2019 End: 11-18-2019 take 1 tablet by mouth twice daily Metformin 500 mg tablet Discontinued 500 mg PO TWICE A DAY September 17, 2019 12:00am November 18, 2019 3:22pm Start: 04-10-2012 End: 03-09-2015 take 1 tablet by mouth twice daily METFORMIN HCL 1000 MG TABS One tablet by mouth twice daily METFORMIN HCL [id number] Corinna London Comment on above: TAKE 2 TABLETS BY MO UTH DAILY WITH BREAKFAST. Take 3 tablets by mo uth once daily. Patient may take 2 pills with breakfast and one with dinner montelukast 10 mg oral tablet (20 sources) Leukotriene Receptor Antagonist Start: 0 take 1 tablet by mouth once daily Montelukast 10 mg tablet Active 10 mg PO DAILY November 18, 2019 12:00am Start: 05-15-2015 End: 09-17-2019 take 1 tablet by mouth once daily Montelukast 10 MG tablet Discontinued 10 mg PO DAILY May 15, 2015 12:00am September 17, 2019 3:10pm allergies Start: 03-09-2015 End: 03-10-2015 take 1 tablet by mouth once daily SINGULAIR 10 MG TABS One tablet by mouth daily MONTELUKAST SODIUM [id number] Eri Corral CNP Comment on above: Take 10 mg by mouth daily at bedtime. Multiple Vitamin (MULTIVITAMIN) Cap (1 source) take 1 capsule by mouth once daily Multiple Vitamin (MULTIVITAMIN) Cap take 1 capsule by mouth daily. 0 Active multivitamin ORAL tablet (20 sources) Start: 1 take 1 tablet by mouth once daily multivitamin ORAL tablet Take one(1) tablet daily. 0 03/24/2010 Active Comment on above: Take one(1) tablet d aily. Multivitamin,Tx-Iron-M inerals (14 sources) Start: take 2 tablets by mouth once daily Multivitamin,Tx-Iron- Minerals Active 2 TABLET PO DAILY April 27, 2020 3:20pm Start: 04-27-2020 take 2 tablets by mo [facility] once daily Multivitamin,Mh-Tdaz-Vjdqqqzs Active 2 TABLET PO DAILY April 27, 2020 2:20pm Start: 06-04-2015 End: 04-27-2020 take 1 tablet by mouth once daily Multivitamin,Fx-Axbk-Httdzymu Discontinu ed 1 TABLET PO DAILY June 04, 2015 12:00am April 27, 2020 3:22pm Start: 06-04-2015 End: 04-27-2020 take 1 tablet by mouth once daily Multivitamin,Qw-Qaok-Zujtjbhu Discontinu ed 1 TABLET PO DAILY June 03, 2015 11:00pm April 27, 2020 2:22pm Multivitamin,Ca-Zkqj-Zymmqbt s 27-0.4 mg tablet (3 sources) Start: 04-27-2020 Multivitamin,Fz-Csio-Fginihj s 27-0.4 mg tablet Active 2 {tbl} PO DAILY April 27, 2020 3:20pm vitamin Start: 04-27-2020 Multivitamin,T f-Tuhu-Rpafccjd 27-0.4 mg tablet Active 2 {tbl} PO DAILY April 27, 2020 3:20pm ONETOUCH ULTRA BLUE TEST STRP (3 sources) Start: 10-10-2018 ONETOUCH ULTRA BLUE TEST STRP TEST TWICE DAILY DIRECTED Start Date: 10/10/18 Status: Ordered potassium citrate 5 meq extended release oral tablet (20 sources) Metabolic Alkalinizer Start: 09-17-2019 take 1 tablet by mouth once daily Potassium Citrate 5 mEq (540 mg) tablet extended release Active 5 meq PO DAILY September 17, 2019 12:00am Start: 03-09-2015 End: 03-10-2015 take 1 tablet by mouth once daily POTASSIUM CITRATE ER 5 MEQ (540 MG) CR-TABS One tablet by mouth daily POTASSIUM CITRATE [id number] Corinna London Comment on above: Take 1 tablet by kim once daily. sotalol hydrochloride 120 mg oral tablet (20 sources) Antiarrhythmic Start: take 1 tablet by mouth twice daily Sotalol 120 mg tablet Active 120 mg PO TWICE A DAY December 29, 2023 1:00am Start: 07-27-2016 take 1 tablet by kim th every twelve hours sotalol 120 MG Tab Indications: Paroxysmal atrial fibrillation , Encounter for long-term (current) use of medications , Atrial fibrillation, unspecified type take 1 tablet by mouth every 12 hours.. 180 tablet 1 07/27/2016 Active Start: 08-24-2015 End: 01-06-2022 take 1 tablet by mouth twice daily Sotalol 120 mg tablet Discontinued 120 mg PO TWICE A DAY 180 3 November 02, 2021 10:21am January 06, 2022 4:50pm Start: 06-04-2015 take 1 tablet by kim th twice daily SOTALOL HCL (AF) 120 MG TABS One tablet by mouth twice daily SOTALOL HCL AF [id number] Shyam Soni MD Start: 06-04-2015 End: 01-26-2017 take 1 tablet by mouth once daily Sotalol 120 MG tablet Discontinued 120 mg PO DAILY June 04, 2015 12:00am January 26, 2017 4:38pm Comment on above: Take 120 mg by mouth twice daily. tamsulosin hydrochloride 0.4 mg oral capsule (20 sources) alpha-Adrenergic Liv Start: 12-25-2020 End: 12-29-2023 take 1 capsule by mouth once daily Tamsulosin 0.4 mg capsule Active 0.4 mg PO daily December 29, 2023 1:00am Start: 05-29-2017 End: 04-27-2020 take 1 capsule by mouth once daily Tamsulosin (Flomax) 0.4 mg capsule,extended release 24hr Discontinued 0.4 mg PO DAILY May 29, 2017 12:00am April 27, 2020 4:02pm flomax Comment on above: Take 0.4 mg by mouth once daily. traMADol hydrochloride 50 mg oral tablet (20 sources) Opioid Agonist Start: 11-18-2017 End: 07-30-2021 take 1 tablet by mouth twice daily Tramadol 50 mg tablet Active 50 mg PO TWICE A DAY March 01, 2018 2:54pm pain Start: 05-21-2015 take 1 tablet by kim th twice daily TRAMADOL HCL 50 MG TABS One tablet by mouth twice daily TRAMADOL HCL [id number] Shyam Soni MD Start: 05-15-2015 End: 03-01-2018 take 1 tablet by mouth three times daily Tramadol 50 MG tablet Discontinued 50 mg PO THREE TIMES A DAY May 15, 2015 12:00am March 01, 2018 2:56pm Start: 03-09-2015 End: 03-10-2015 take 1 tablet by mouth three times daily as needed TRAMADOL HCL 50 MG TABS One tablet by mouth three times daily as needed TRAMADOL HCL [id number] Corinna London take 1 tablet by kim th every twelve hours traMADol 50 MG Tab take 50 mg by mouth every 12 hours. 0 Active Comment on above: Take 1 tablet by kim th twice daily. vitamin b12 1 mg sublingual tablet (20 sources) Vitamin B12 Start: 02-11-2020 Cyanocobalamin 1,000 mcg subl Indications: S/P laparoscopic sleeve gastrectomy Dissolve 1 tablet under the tongue once daily. 30 tablet 11 02/11/2020 Active Start: 11-22-2018 take 1 capsule by mo [facility] once daily Cyanocobalamin (Vitamin B-12) 1,000 MCG capsule Active 1000 ug PO DAILY November 22, 2018 12:00am vitamin Comment on above: Dissolve 1 tablet un inez the tongue once daily. Vitamin B12 1000 mcg oral tablet (3 sources) Start: 10-10-2018 Vitamin B12 1000 mcg oral tablet Dose : 1,000 mcg = 1 tab(s), Oral, Daily, 0 Refill(s) Start Date: 10/10/18 Status: Ordered Vitamin D3 (1 source) Start: 06-30-2023 Vitamin D3 Dose : 50 mcg = 1 tab(s), Oral, Daily, 0 Refill(s) Start Date: 06/30/23 Status: Ordered Completed/Discontinued Medications Medication Drug Class(es) Dates Sig (Normalized) Sig (Original) acetaminophen 500 mg / HYDROcodone bitartrate 5 mg oral tablet (2 sources) Opioid Agonist Start: 01-14-2011 End: 03-09-2015 HYDROCODONE-ACETAMI NOPHEN 5-500 MG TABS every 6 hrs as needed for pain HYDROCODONE-ACETAMI NOPHEN [id number] Ton Lamb MD acetaminophen 325 mg / oxyCODONE hydrochloride 5 mg oral tablet (4 sources) Opioid Agonist Start: 08-23-2011 End: 07-19-2016 PERCOCET 5-325 MG TABS As needed OXYCODONE-ACETAMINO PHEN [id number] Shyam Soni MD [id number] 200 actuat albuterol 0.09 mg/actuat metered dose inhaler (20 sources) beta2-Adrenergic Agonist Start: 02-16-2017 End: 03-06-2017 Albuterol Sulfate (Proair Hfa) 90 mcg/actuation HFA aerosol inhaler Discontinued 2 NMA INHALATION Q4H as needed February 16, 2017 1:00am March 06, 2017 3:11pm Start: 02-16-2017 End: 03-06-2017 take 1 puff(s) by inhalation every four hours Albuterol Sulfate (Proair Hfa) 90 mcg/actuation HFA aerosol inhaler Discontinued 2 PUFF INHALATION Q4H February 16, 2017 12:00am March 06, 2017 2:11pm Start: 12-03-2015 PROAIR HFA 108 (90 Base) MCG/ACT AERS INH 2 puffs as needed for 4 hours. ALBUTEROL SULFATE [id number] Jammie House LPN Start: 03-09-2015 End: 05-21-2015 take 2 puff(s) by inhalation every four hours as needed PROAIR HFA 108 (90 Base) MCG/ACT AERS INH 2 puffs q4h as needed ALBUTEROL SULFATE [id number] Corinna London Start: 01-07-2011 End: 03-10-2015 ALBUTEROL SULFATE TABS 0.083 %, Take as directed ALBUTEROL SULFATE TABS [id number] Corinna London Start: 01-07-2011 ALBUTEROL SULF ATE TABS 0.083%, Take as directed ALBUTEROL SULFATE TABS [id number] Kiarra Garcia take 2 puff(s) by in halation every four hours as needed for wheezing albuterol HFA (PROVENTIL HFA, VENTOLIN HFA) 90 mcg/actuation inhaler Inhale 2 Puffs as instructed every 4 hours as needed for Wheezing/Shortness of Breath. Active take 1 puff(s) by in halation every six hours as needed for wheezing albuterol (PROAIR HFA) 108 (90 Base) MCG/ACT Aero Soln take 1 puff by inhalation every 6 hours as needed for Wheezing.. 0 Active Comment on above: Inhale 2 Puffs as in structed every 4 hours as needed for Wheezing/Shortness of Breath. amLODIPine 5 mg oral tablet (20 sources) Dihydropyridine Calcium Channel Liv Start: 12-26-19 End: 12-26-19 take 1 tablet by mouth once daily Amlodipine 5 mg tablet Discontinued 5 mg PO DAILY December 26, 2019 1:00am December 25, 2020 4:30pm Start: 09-18-2019 End: 09-25-2019 take 2.5 mg by mouth once daily Amlodipine 5 mg tablet Discontinued 2.5 mg PO DAILY September 18, 2019 9:03am September 25, 2019 2:51pm blood pressure Start: 09-18-2019 End: 09-25-2019 take 2.5 mg by mouth once daily Amlodipine Discontinue d 2.5 MG PO DAILY September 18, 2019 8:03am September 25, 2019 1:51pm Start: 09-14-2017 End: 11-18-2019 take 1 tablet by mouth once daily Amlodipine 5 mg tablet Discontinued 5 mg PO DAILY September 14, 2017 12:00am November 18, 2019 3:23pm blood pressure amoxicillin 500 mg oral tablet (3 sources) Penicillin-class Antibacterial Start: 04-10-2012 End: 03-09-2015 take 4 tablets by mouth every hour AMOXICILLIN 500 MG TABS 4 tablets by mouth 1 hour prior to procedure AMOXICILLIN [id number] Corinna London Start: 08-23-2011 take 1 tablet by kim th three times daily AMOXICILLIN 500 MG TABS One tablet by mouth three times daily AMOXICILLIN [id number] Ton Lamb MD apixaban 5 mg oral tablet (20 sources) Factor Xa Inhibitor Start: 11-08-2016 Eliquis 5 mg oral tablet Dose : 5 mg = 1 tab(s), Oral, BID, 0 Refill(s) Start Date: 11/18/17 Status: Ordered Start: 03-23-2015 End: 03-01-2018 take [id number] tablets by mouth twice daily Apixaban 5 MG tablet Discontinued 5 mg PO TWICE A DAY March 23, 2015 1:00am March 01, 2018 3:31pm planning to stop taking 12/09 Start: 03-10-2015 End: 07-30-2021 take 1 tablet by mouth twice daily Apixaban (Eliquis) 5 mg tablet Discontinued 5 mg PO TWICE A DAY October 12, 2018 12:00am December 25, 2019 4:03pm blood thinner Comment on above: Take 5 mg by mouth t wice daily. atorvastatin 10 mg oral tablet (20 sources) HMG-CoA Reductase Inhibitor Start: 4 End: 7 take 2 tablets by mouth at bedtime Atorvastatin 10 MG tablet Discontinued 20 mg PO AT BEDTIME July 08, 2013 12:00am January 26, 2017 11:17am Start: 07-08-2013 End: 01-26-2017 take 20 mg by mouth at bedtime Atorvastatin Discontinu ed 20 MG PO AT BEDTIME July 07, 2013 11:00pm January 26, 2017 10:17am Start: 04-17-2012 take 1 tablet by kim th once daily Atorvastatin 20 mg tablet Active 20 mg PO DAILY January 26, 2017 1:00am cholesterol Start: 03-03-2011 End: 12-18-2012 take 1 tablet by mouth once daily LIPITOR 10 MG TABS One tablet by mouth daily ATORVASTATIN CALCIUM [id number] Shyam Soni MD Comment on above: Take 20 mg by mouth once daily. Beclomethasone Dipropionate (20 sources) Corticosteroid Start: 05-23-2017 End: 05-29-2017 Beclomethasone Dipropionate (Qvar) 80 mcg/actuation aerosol Discontinued 2 NMA INHALATION Q12H May 23, 2017 12:00am May 29, 2017 12:52pm Start: 05-23-2017 End: 05-29-2017 take 1 puff(s) by inhalation every twelve hours Beclomethasone Dipropionate (Qvar) 80 mcg/actuation aerosol Discontinued 2 PUFF INHALATION Q12H May 23, 2017 12:00am May 29, 2017 12:52pm Start: 05-23-2017 End: 05-29-2017 take 1 puff(s) by inhalation every twelve hours Beclomethasone Dipropionate (Qvar) 80 mcg/actuation aerosol Discontinued 2 PUFF INHALATION Q1May 22, 2017 11:00pm May 29, 2017 11:52am Start: 02-16-2017 End: 03-06-2017 Beclomethasone Dipropionate (Qvar) 80 mcg/actuation aerosol Discontinued 2 NMA INHALATION February 16, 2017 1:00am March 06, 2017 3:11pm Start: 02-16-2017 End: 03-06-2017 take 1 puff(s) by inhalation every twelve hours Beclomethasone Dipropionate (Qvar) 80 mcg/actuation aerosol Discontinued 2 PUFF INHALATION February 16, 2017 1:00am March 06, 2017 3:11pm Start: 02-16-2017 End: 03-06-2017 take 1 puff(s) by inhalation every twelve hours Beclomethasone Dipropionate (Qvar) 80 mcg/actuation aerosol Discontinued 2 PUFF INHALATION February 16, 2017 12:00am March 06, 2017 2:11pm Start: 11-29-2016 take 2 puff(s) by in halation twice daily QVAR 80 MCG/ACT AERS 2 puffs INH twice daily BECLOMETHASONE DIPROPIONATE [id number] Roderick Brizuela Start: 03-09-2015 End: 05-21-2015 take 80 ug by inhalation twice daily QVAR 80 MCG/ACT AERS INH twice daily BECLOMETHASONE DIPROPIONATE [id number] Shyam Soni MD Start: 03-09-2015 take 80 ug by inhala tion twice daily QVAR 80 MCG/ACT AERS INH twice daily BECLOMETHASONE DIPROPIONATE [id number] Eri Corral CNP celecoxib 200 mg oral capsule (10 sources) Nonsteroidal Anti-inflammatory Drug Start: 11-22-2018 End: 09-17-2019 take 1 capsule by mouth once daily Celecoxib 200 MG capsule Discontinued 200 mg PO DAILY November 22, 2018 12:00am September 17, 2019 3:11pm pain cephalexin 500 mg oral capsule (2 sources) Cephalosporin Antibacterial Start: 11-27-2018 End: 07-30-2021 cephALEXin (KEFLEX) 500 mg capsule Cephalexin Active 500 MG EVERY 12 HOURS 3 November 27, 2018 11:19am next dose tonight 11/27/2018 0 11/27/2018 07/30/2021 Discontinued Comment on above: Cephalexin Active 500 MG EVERY 12 HOURS 3 November 27, 2018 11:19am next dose tonight 11/27/2018 CEROVITE JR 18 mg iron- 10 mcg (2 sources) Start: 05-17-2020 End: 07-30-2021 take 1 tablet by mouth once daily CEROVITE JR 18 mg iron- 10 mcg CHEW AND SWALLOW TAKE 1 TABLET BY MOUTH DAILY 0 05/17/2020 07/30/2021 Discontinued Start: 05-17-2020 take 1 tablet by kim th once daily CEROVITE JR 18 mg iron- 10 mcg CHEW AND SWALLOW TAKE 1 TABLET BY MOUTH DAILY 0 05/17/2020 Active Comment on above: CHEW AND SWALLOW STEPHAN E 1 TABLET BY MOUTH DAILY colchicine 0.6 mg oral tablet (2 sources) Start: 05-14-19 End: 07-31-19 colchicine 0.6 mg tablet DIRECTED TABLET 2 TABS ROSIE THEN 1 TAB ONE HOUR LATER REPEAT DAILY UNTIL GOUT RESOLVED 0 05/13/2020 07/30/2021 Discontinued Comment on above: DIRECTED TABLET 2 TABS ROSIE THEN 1 TAB ONE HOUR LATER REPEAT DAILY UNTIL GOUT RESOLVED cyclobenzaprine hydrochloride 10 mg oral tablet (2 sources) Muscle Relaxant Start: 05-12-19 End: 07-20-19 17 take 1 tablet by mouth every eight hours FLEXERIL 10 MG TABS One tablet by mouth three times daily as needed CYCLOBENZAPRINE HCL Mynor Mendoza MD doxycycline monohydrate 100 mg oral capsule (20 sources) Tetracycline-cla ss Drug Start: 11-23-19 End: 11-28-19 19 take 1 capsule by mouth twice daily Doxycycline Monohydrate 100 MG capsule Discontinued 100 mg PO TWICE A DAY November 22, 2018 12:00am November 27, 2018 11:22am Start: 10-04-2018 End: 10-12-2018 take 1 capsule by mouth twice daily Doxycycline Monohydrate 100 MG capsule Discontinued 100 mg PO TWICE A DAY 20 0 October 04, 2018 12:00am October 12, 2018 10:15am Flintstones Complete Chewable (3 sources) Start: 10-10-2018 Flintstones Complete Chewable Dose = 1 tab(s), Chewed, qDay, 0 Refill(s) Start Date: 10/10/18 Status: Ordered 120 actuat formoterol fumarate 0.005 mg/actuat / mometasone furoate 0.2 mg/actuat metered dose inhaler (2 sources) Corticosteroid , beta2-Adrenerg ic Agonist Start: 03-09-2015 End: 03-10-2015 take 2 puff(s) by inhalation twice daily DULERA 200-5 MCG/ACT AERO 2 puffs INH twice daily MOMETASONE FURO-FORMOTEROL FUM [id number] Corinna London gabapentin 300 mg oral capsule (20 sources) Anti-epileptic Agent Start: 12-26-2019 End: 04-27-2020 take 2 capsules by mouth twice daily Gabapentin 300 mg capsule Discontinued 600 mg PO TWICE A DAY December 26, 2019 11:53am April 27, 2020 3:19pm Diabetic neuropathy Start: 12-26-2019 End: 04-27-2020 take 600 mg by mouth twice daily Gabapentin Discontinu ed 600 MG PO TWICE A DAY December 26, 2019 10:53am April 27, 2020 2:19pm Start: 03-11-2019 End: 12-26-2019 Gabapentin 300 MG capsule Discontinued 300 mg PO 1200 March 18, 2019 4:32pm December 26, 2019 11:55am Diabetic neuropathy Start: 11-12-2018 End: 12-29-2023 take 1 tablet by mouth twice daily at mealtime Gabapentin 600 MG tablet Discontinued 600 mg PO TWICE DAILY WITH MEALS November 12, 2018 12:00am December 29, 2023 3:35pm nerve pain Start: 08-21-2017 End: 10-12-2018 take 1 tablet by mouth twice daily Gabapentin 600 mg tablet Discontinued 600 mg PO TWICE A DAY August 21, 2017 2:05pm October 12, 2018 10:15am Start: 06-09-2014 End: 08-21-2017 take 1 tablet by mouth three times daily Gabapentin 600 MG tablet Discontinued 600 mg PO THREE TIMES A DAY June 09, 2014 12:00am August 21, 2017 2:07pm Start: 04-10-2012 End: 05-21-2015 take 2 tablets by mouth three times daily NEURONTIN 300 MG CAPS Two tablets by mouth three times daily GABAPENTIN [id number] Pearl Plummer PA-C Start: 04-10-2012 take 1 tablet by kim th twice daily NEURONTIN 300 MG CAPS One tablet by mouth twice daily GABAPENTIN [id number] Ton Lamb MD Start: 04-10-2012 take 2 tablets by mo [facility] once daily NEURONTIN 300 MG CAPS Two tablets by mouth 2times daily GABAPENTIN [id number] Corinna London End: 07-30-2021 take 600 mg by mouth twice daily gabapentin 600 mg Tb2 4 Take 600 mg by mouth twice daily. 0 07/30/2021 Discontinued Comment on above: Take 600 mg by mouth twice daily. 0.2 ml glucagon 5 mg/ml auto-injector (3 sources) Antihypoglycemic Agent Start: 10-12-19 Gvoke HypoPen Two Pack 1 mg/0.2 mL subcutaneous solution Dose : 0.5 mg = 0.1 mL, Subcutaneous, AsDirected, PRN for low blood sugar, # 1 EA, 1 Refill(s) Start Date: 10/11/22 Status: Ordered glyBURIDE 5 mg oral tablet (15 sources) Sulfonylurea Start: 02-16-19 End: 05-30-19 take 1 tablet by mouth once daily Glyburide 5 mg tablet Discontinued 5 mg PO daily February 16, 2017 1:00am May 29, 2017 12:54pm Start: 12-29-2015 take 1 tablet by kim th once daily as needed GLYBURIDE 5 MG TABS One tablet by mouth daily as needed GLYBURIDE [id number] Iwona Steward NP Start: 04-10-2012 End: 03-10-2015 take 2 tablets by mouth once daily GLYBURIDE 5 MG TABS Two tablets by mouth daily GLYBURIDE [id number] Corinna London hydroCHLOROthiazide 12.5 mg / lisinopril 20 mg oral tablet (2 sources) Thiazide Diuretic, Angiotensin Converting Enzyme Inhibitor Start: 03-03-2011 End: 05-21-2015 take 1 tablet by mouth twice daily LISINOPRIL-HYDROCHLOROTHIAZIDE 20-12.5 MG TABS one tablet by mouth twice a day LISINOPRIL-HYDROCHLOROTHIAZIDE [id number] Shyam Soni MD 3 ml insulin detemir 100 unt/ml pen injector (20 sources) Insulin Analog Start: 04-27-2020 End: 12-25-2020 Insulin Detemir U-100 100 unit/mL (3 mL) insulin pen Discontinued 10 U SC TWICE A DAY April 27, 2020 3:19pm December 25, 2020 4:30pm diabetes Start: 10-04-2018 End: 04-27-2020 inject 18 [IU] by subcutaneous injection twice daily Insulin Detemir U-100 100 UNITS/ML insulin pen Discontinued 18 U SQ TWICE A DAY October 04, 2018 12:00am April 27, 2020 3:22pm diabetes Start: 10-04-2018 End: 04-27-2020 inject 18 [IU] by subcutaneous injection twice daily Insulin Detemir U-100 Discontinued 18 UNITS SQ TWICE A DAY October 03, 2018 11:00pm April 27, 2020 2:22pm ipratropium bromide 0.042 mg/actuat metered dose nasal spray (13 sources) Anticholinergic Start: 11-22-2018 End: 06-18-2019 Ipratropium [place] 15 ML spray,non-aerosol Discontinued 1 - 2 NMA NS EVERY 6 HOURS as needed for Nasal Congestion November 22, 2018 12:00am June 18, 2019 11:00am Start: 11-22-2018 End: 06-18-2019 Ipratropium [place] Disconti nued 1 - 2 SPRAY NS EVERY 6 HOURS November 21, 2018 11:00pm June 18, 2019 10:00am Start: 10-10-2018 ipratropium (0 .03%) nasal 21 mcg/spray (Atrovent Nasal) Dose = 2 spray(s), Nasal, qDay, PRN Nasal congestion, 0 Refill(s) Start Date: 10/10/18 Status: Ordered Start: 10-10-2018 ipratropium (0 .03%) nasal 21 mcg/spray (Atrovent Nasal) Dose = 2 spray(s), Nasal, qDay, 0 Refill(s) Start Date: 10/10/18 Status: Ordered lactulose 667 mg/ml oral solution (2 sources) Osmotic Laxative Start: 03-09-2015 End: 05-21-2015 LACTULOSE 20 GM/30ML SOLN Three times a day orally with food for constipation as needed LACTULOSE [id number] Shyam Soni MD lecithin 1200 mg oral capsule (12 sources) Start: 05-15-2015 End: 01-26-2017 take 1 capsule by mouth once daily Lecithin 1,200 MG capsule Discontinued 1200 mg PO DAILY May 15, 2015 12:00am January 26, 2017 4:37pm 3 ml liraglutide 6 mg/ml pen injector (12 sources) GLP-1 Receptor Agonist Start: 04-27-2020 End: 12-25-2020 Liraglutide 0.6 mg/0.1 mL (18 mg/3 mL) pen injector Discontinued 1.8 mg SC DAILY April 27, 2020 12:00am December 25, 2020 4:30pm Start: 03-09-2015 End: 03-10-2015 SAXENDA 18 MG/3ML SOPN SQ as directed daily LIRAGLUTIDE -WEIGHT MANAGEMENT [id number] Corinna London lisinopril 10 mg oral tablet (1 source) Angiotensin Converting Enzyme Inhibitor Start: 01-07-2011 take 1 tablet by mouth once daily LISINOPRIL 10 MG TABS One tablet by mouth daily LISINOPRIL [id number] Kiarra Garcia LISINOPRIL 10 MG/HCTZ 12.5MG (1 source) Start: 01-14-2011 LISINOPRIL 10 MG/HCTZ 12.5MG 1 po bid Ton Lamb MD meloxicam 7.5 mg oral tablet (2 sources) Nonsteroidal Anti-inflammatory Drug Start: 12-18-2012 End: 11-27-2014 take 1 tablet by mouth once daily MOBIC 7.5 MG TABS One tablet by mouth daily MELOXICAM [id number] Shyam Soni MD metFORMIN hydrochloride 500 mg / SITagliptin 50 mg oral tablet (20 sources) Biguanide, Dipeptidyl Peptidase 4 Inhibitor Start: 09-17-2019 End: 11-18-2019 Sitagliptin Phos-Metformin (Janumet) 50-500 mg tablet Discontinued 1 {tbl} PO TWICE A DAY September 17, 2019 12:00am November 18, 2019 3:45pm Start: 06-05-2014 End: 09-17-2019 Sitagliptin Phos-Metformin 1 EACH tablet Discontinued 1 NMA PO DAILY June 05, 2014 12:00am September 17, 2019 3:09pm diabetes Start: 06-05-2014 End: 09-17-2019 Sitagliptin Phos-Metformin Discontinued 1 EACH PO DAILY June 04, 2014 11:00pm September 17, 2019 2:09pm Start: 04-10-2012 End: 03-10-2015 take 1 tablet by mouth twice daily JANUMET 50-500 MG TABS One tablet by mouth twice daily SITAGLIPTIN-METFORMIN HCL [id number] Corinna London SitaGLIPtin-MetF ORMIN HCl 50-500 MG Tab take 1 tablet by mouth. 0 Active MULTIPLE VITAMIN (1 source) Start: 03-10-2015 take 1 tablet by mouth once daily MULTIPLE VITAMIN TABS One tablet by mouth daily MULTIPLE VITAMIN [id number] Corinna London Multivitamin,Tx-Iron- Minerals 1 TABLET tablet (3 sources) Start: 06-04-2015 End: 04-27-2020 take 1 tablet by mouth once daily Multivitamin,Vi-Tcup-Vxww rals 1 TABLET tablet Discontinued 1 {tbl} PO DAILY June 04, 2015 12:00am April 27, 2020 3:22pm vitamin Start: 06-04-2015 End: 04-27-2020 take 1 tablet by mouth once daily Multivitamin,Qh-Tknk-Utemqcul 1 TABLET t ablet Discontinued 1 {tbl} PO DAILY June 04, 2015 12:00am April 27, 2020 3:22pm pantoprazole 40 mg delayed release oral tablet (10 sources) Proton Pump Inhibitor Start: 05-29-2017 End: 10-12-2018 take 1 tablet by mouth once daily in the morning Pantoprazole (Protonix) 40 mg tablet,delayed release (DR/EC) Discontinued 40 mg PO EVERY MORNING May 29, 2017 12:00am October 12, 2018 10:16am RESPIRATORY THERAPY SUPPLIES (1 source) Start: 03-09-2015 BREATHERITE VALVED MDI CHAMBER ANAMIKA RESPIRATORY THERAPY SUPPLIES [id number] Corinna London SITagliptin 100 mg oral tablet (10 sources) Dipeptidyl Peptidase 4 Inhibitor Start: 11-18-2019 End: 04-27-2020 take 1 tablet by mouth once daily Sitagliptin Phosphate (Januvia) 100 mg tablet Discontinued 100 mg PO DAILY November 18, 2019 12:00am April 27, 2020 3:21pm thioctic acid 200 mg oral capsule (20 sources) Start: 12-25-2020 End: 12-29-2023 take 1 capsule by mouth once daily Alpha Lipoic Acid 200 mg capsule Discontinued 200 mg PO DAILY December 25, 2020 1:00am December 29, 2023 3:34pm Comment on above: Take 200 mg by mouth once daily. Turmeric-Turmeric Root Extract (10 sources) Start: 11-22-2018 End: 09-17-2019 take 1 capsule by mouth twice daily Turmeric-Turmeric Root Extract 1 EACH capsule Discontinued 1 NMA PO TWICE A DAY November 22, 2018 12:00am September 17, 2019 3:10pm supplement Start: 11-22-2018 End: 09-17-2019 take 1 capsule by mouth twice daily Turmeric-Turmeric Root Extract 1 EACH capsule Discontinued 1 NMA PO TWICE A DAY November 22, 2018 12:00am September 17, 2019 3:10pm Start: 11-22-2018 End: 09-17-2019 Turmeric-Turmeric Root Extra ct Discontinued 1 EACH PO TWICE A DAY November 22, 2018 12:00am September 17, 2019 3:10pm Start: 11-22-2018 End: 09-17-2019 Turmeric-Turmeric Root Extra ct Discontinued 1 EACH PO TWICE A DAY November 21, 2018 11:00pm September 17, 2019 2:10pm vitamin b6 50 mg oral capsule (14 sources) Start: 03-06-2017 End: 03-01-2018 take 1 capsule by mouth once daily Pyridoxine (Vitamin B6) 50 mg capsule Discontinued 50 mg PO daily March 06, 2017 1:00am March 01, 2018 2:55pm Start: 03-10-2015 End: 05-21-2015 take 1 tablet by mouth once daily PYRIDOXINE HCL 100 MG TABS One tablet by mouth daily PYRIDOXINE HCL [id number] Corinna London Start: 03-09-2015 End: 03-10-2015 take 1 tablet by mouth twice daily PYRIDOXINE HCL 100 MG TABS One tablet by mouth twice daily (prior to 4pm) PYRIDOXINE HCL [id number] Corinna London Problems Active Problems Problem Classification Problem Date Documented Da te Episodic/Chronic Asthma (19 sources) Moderate persistent asthma; Translations: [Unspecified asthma, uncomplicated] Onset: 7 11-29-2016 Chronic Calculus of urinary tract (12 sources) History of calculus of kidney; Translations: [Personal history of urinary calculi] 03-01-2019 Episodic Cardiac dysrhythmias (20 sources) Persistent atrial fibrillation; Translations: [Atrial tachycardia] Onset: 2 03-10-2015 Chronic Cataract (20 sources) Bilateral senile combined form cataracts of eyes; Translations: [Combined forms of age-related cataract, bilateral] Onset: 6 09-01-2015 Chronic Chronic kidney disease (1 source) Chronic kidney disease; Translations: [Chronic kidney disease, stage 3a] Onset: 5 Chronic obstructive pulmonary disease and bronchiectasis (14 sources) Moderate chronic obstructive pulmonary disease; Translations: [Chronic obstructive pulmonary disease, unspecified] Onset: 6 12-03-2015 Chronic Coagulation and hemorrhagic disorders (20 sources) Platelet count below reference range; Translations: [Thrombocytopenia, unspecified] Onset: 0 09-04-2019 Chronic Conditions associated with dizziness or vertigo (10 sources) Lightheadedness; Translations: [Dizziness and giddiness] 09-27-2019 Episodic Conduction disorders (20 sources) Conduction disorder of the heart; Translations: [Presence of automatic (implantable) cardiac defibrillator] Onset: 2 Resolved: 6 08-12-2015 Chronic Comment on above: Gen change [address] Zayas Congestive heart failure; nonhypertensive (3 sources) Left heart failure; Translations: [Chronic systolic heart failure] Onset: 1 Resolved: 1 01-14-2011 Chronic Coronary atherosclerosis and other heart disease (18 sources) Coronary atherosclerosis; Translations: [Atherosclerotic heart disease of [place] coronary artery without angina pectoris] 07-09-2018 Chronic Developmental disorders (20 sources) Intellectual disability; Translations: [Unspecified intellectual disabilities] Onset: 4 09-03-2013 Chronic Diabetes mellitus with complications (1 source) Type 2 diabetes mellitus with diabetic chronic kidney disease; Translations: [Type 2 diabetes mellitus with diabetic chronic kidney disease] Onset: 5 Chronic Diabetes mellitus without complication (20 sources) Diabetes mellitus; Translations: [Type 2 diabetes mellitus without complications] Onset: 3 11-27-2014 Chronic Disorders of lipid metabolism (19 sources) Hyperlipidemia; Translations: [Hyperlipidemia, unspecified] Onset: 7 01-27-2016 Chronic Esophageal disorders (1 source) Gastroesophageal reflux disease; Translations: [GERD (gastroesophageal reflux disease)] 06-03-2015 Chronic Essential hypertension (20 sources) Hypertensive disorder; Translations: [Essential (primary) hypertension] Onset: 1 01-07-2011 Chronic Fracture of upper limb (20 sources) Elbow fracture; Translations: [Unspecified fracture of lower end of unspecified humerus, initial encounter for closed fracture] Onset: 1 04-14-2010 Episodic Gastrointestinal hemorrhage (10 sources) Rectal hemorrhage; Translations: [Hemorrhage of anus and rectum] 04-27-2020 Episodic Hemorrhoids (10 sources) Hemorrhoids; Translations: [Unspecified hemorrhoids] 08-18-2020 Episodic Nutritional deficiencies (10 sources) Vitamin D deficiency; Translations: [Vitamin D deficiency, unspecified] 03-01-2019 Chronic Osteoarthritis (12 sources) Unspecified osteoarthritis, unspecified site; Translations: [Osteoarthritis] Onset: 7 03-01-2019 Chronic Other acquired deformities (9 sources) Spondylolysis; Translations: [Spondylolysis, lumbar region] 04-19-2022 Episodic Other acquired deformities (1 source) Spondylolysis, lumbar region; Translations: [Acquired spondylolisthesis] 04-19-2022 Episodic Other aftercare (1 source) Surgical follow-up; Translations: [Encounter for removal of sutures] 11-06-2023 Episodic Other aftercare (1 source) Encounter for removal of sutures; Translations: [Encounter for staple removal] Onset: 4 Episodic Other bone disease and musculoskeletal deformities (20 sources) Segmental and somatic dysfunction; Translations: [Segmental and somatic dysfunction of lumbar region] 12-13-2018 Episodic Other bone disease and musculoskeletal deformities (6 sources) Segmental and somatic dysfunction of lumbar region; Translations: [Nonallopathic lesions, lumbar region] Onset: 5 12-28-2021 Episodic Other bone disease and musculoskeletal deformities (6 sources) Segmental and somatic dysfunction of pelvic region; Translations: [Nonallopathic lesions, pelvic region] Onset: 5 12-28-2021 Episodic Other bone disease and musculoskeletal deformities (6 sources) Segmental and somatic dysfunction of thoracic region; Translations: [Nonallopathic lesions, thoracic region] Onset: 5 12-28-2021 Episodic Other diseases of kidney and ureters (2 sources) Dilatation of ureter; Translations: [Megaloureter] 08-20-2024 Episodic Other eye disorders (20 sources) Bilateral vitreous floaters; Translations: [Other vitreous opacities, bilateral] Onset: 6 09-01-2015 Chronic Other gastrointestinal disorders (1 source) Personal history of other diseases of the digestive system; Translations: [S/P repair of ventral hernia] Onset: 4 Episodic Other gastrointestinal disorders (5 sources) Splenomegaly; Translations: [Splenomegaly, not elsewhere classified] 03-05-2024 Episodic Other gastrointestinal disorders (3 sources) Constipation; Translations: [Constipation, unspecified] 12-29-2023 Episodic Other gastrointestinal disorders (2 sources) Splenomegaly, not elsewhere classified; Translations: [Splenomegaly, not elsewhere classified] Onset: 5 Episodic Other hematologic conditions (3 sources) Lesion of spleen; Translations: [Other diseases of spleen] 03-05-2024 Episodic Other injuries and conditions due to external causes (10 sources) Hematoma; Translations: [Other injury of unspecified body region, initial encounter] 12-20-2018 Episodic Other injuries and conditions due to external causes (6 sources) Contusion; Translations: [Other injury of unspecified body region, initial encounter] 11-20-2022 Episodic Other liver diseases (9 sources) Non-alcoholic fatty liver; Translations: [Fatty (change of) liver, not elsewhere classified] Onset: 4 11-12-2013 Chronic Other liver diseases (20 sources) Fatty (change of) liver, not elsewhere classified; Translations: [Other chronic nonalcoholic liver disease] Onset: 4 11-12-2013 Chronic Other liver diseases (10 sources) Increased bilirubin level; Translations: [Unspecified jaundice] 09-27-2019 Episodic Other lower respiratory disease (1 source) Pleurodynia; Translations: [Pleurodynia] Onset: 5 Episodic Other nervous system disorders (10 sources) Left leg peripheral neuropathy; Translations: [Unspecified mononeuropathy of left lower limb] 03-12-2019 Chronic Other nutritional; endocrine; and metabolic disorders (3 sources) Overweight; Translations: [Overweight] Onset: 7 05-21-2016 Chronic Other nutritional; endocrine; and metabolic disorders (20 sources) Morbid obesity; Translations: [Morbid (severe) obesity due to excess calories] Onset: 2 06-03-2015 Chronic Other nutritional; endocrine; and metabolic disorders (20 sources) Obesity; Translations: [Obesity, unspecified] Onset: 0 06-15-2020 Chronic Other nutritional; endocrine; and metabolic disorders (20 sources) Hypophosphatemia; Translations: [Other disorders of phosphorus metabolism] Onset: 0 09-05-2019 Chronic Other nutritional; endocrine; and metabolic disorders (4 sources) Severe obesity; Translations: [Morbid (severe) obesity due to excess calories] Chronic Other nutritional; endocrine; and metabolic disorders (2 sources) Body mass index 40+ - severely obese; Translations: [Body mass index (BMI) 45.0-49.9, adult] Chronic Other nutritional; endocrine; and metabolic disorders (10 sources) Hyperbilirubinemia; Translations: [Other disorders of bilirubin metabolism] 11-19-2017 Chronic Other nutritional; endocrine; and metabolic disorders (3 sources) Morbid (severe) obesity due to excess calories; Translations: [Morbid obesity] 03-31-2022 Chronic Other nutritional; endocrine; and metabolic disorders (8 sources) Obesity caused by energy imbalance; Translations: [Morbid (severe) obesity due to excess calories] 06-18-2019 Chronic Maria G-; endo-; and myocarditis; cardiomyopathy (20 sources) Dilated cardiomyopathy; Translations: [Dilated cardiomyopathy] Onset: 1 01-07-2011 Chronic Comment on above: LVEF 65% [2020]. LVE F 57% [2018]. Residual codes; unclassified (20 sources) Obstructive sleep apnea syndrome; Translations: [Obstructive sleep apnea (adult) (pediatric)] Onset: 2 06-03-2015 Chronic Comment on above: In March 2020 to 17/13 cmH2O (22/12 cm of water, backup rate of 16 (original order)) Residual codes; unclassified (20 sources) Central sleep apnea syndrome; Translations: [Primary central sleep apnea] Onset: 1 03-16-2020 Chronic Residual codes; unclassified (3 sources) Obstructive sleep apnea (adult) (pediatric); Translations: [Obstructive sleep apnea (adult)(pediatric)] 03-31-2022 Chronic Residual codes; unclassified (1 source) History of hernia repair; Translations: [Other specified postprocedural states] 11-06-2023 Episodic Residual codes; unclassified (2 sources) Other specified postprocedural states; Translations: [S/P exploratory laparotomy] Onset: 4 Episodic Residual codes; unclassified (1 source) Taking high risk medication; Translations: [High risk medication use] Onset: 6 06-03-2015 Spondylosis; intervertebral disc disorders; other back problems (20 sources) Lumbosacral spondylosis without myelopathy; Translations: [Spondylosis without myelopathy or radiculopathy, lumbosacral region] Onset: 4 07-09-2018 Chronic Spondylosis; intervertebral disc disorders; other back problems (20 sources) Backache; Translations: [Dorsalgia, unspecified] 04-16-2020 Episodic Unclassified (7 sources) Body mass index (BMI) 50-59.9 , adult; Translations: [Obstructive sleep apnea syndrome] Onset: 1 Resolved: 6 05-16-2014 Chronic Unclassified (11 sources) Abnormal findings on diagnostic imaging of heart and coronary circulation; Translations: [Abnormal result of other cardiovascular function study] Onset: 7 08-30-2016 Episodic Unclassified (20 sources) OPENED IN ERROR Onset: 4 11-12-2013 Unclassified (1 source) abdominal pain, umbilical hernia Onset: 4 Past or Other Problems Problem Classification Problem Date Documented Date Episodic/Chronic Abdominal hernia (20 sources) Umbilical hernia; Translations: [Umbilical hernia without obstruction or gangrene] Onset: 10-17-2023 Episodic Acute posthemorrhagic anemia (20 sources) Anemia following acute postoperative blood loss; Translations: [Acute posthemorrhagic anemia] Onset: 09-04-2019 09-04-2019 Episodic Administrative/social admission (20 sources) Patient encounter status; Translations: [Dietary counseling and surveillance] Onset: 06-14-2012 06-14-2012 Episodic Allergic reactions (2 sources) Allergy status to other drugs, medicaments and biological substances status; Translations: [Allergy status to oth drug/meds/biol subst status] Onset: 09-09-2016 Episodic Biliary tract disease (20 sources) Biliary calculus; Translations: [Calculus of gallbladder without cholecystitis without obstruction] Onset: 11-12-2013 11-12-2013 Episodic Complications of surgical procedures or medical care (20 sources) Pulmonary insufficiency following surgery; Translations: [Other postprocedural complications and disorders of respiratory system, not elsewhere classified] Onset: 09-04-2019 09-04-2019 Episodic Deficiency and other anemia (20 sources) Anemia; Translations: [Anemia, unspecified] Onset: 06-27-2012 06-27-2012 Episodic Other hematologic conditions (1 source) Other diseases of spleen; Translations: [Splenic lesion] Onset: 03-05-2024 Episodic Other lower respiratory disease (1 source) Dyspnea; Translations: [Shortness of breath] Onset: 03-10-2015 03-10-2015 Episodic Residual codes; unclassified (20 sources) Pain; Translations: [Pain, unspecified] Onset: 03-23-2010 03-23-2010 Episodic Residual codes; unclassified (20 sources) History of sleeve gastrectomy; Translations: [Acquired absence of stomach [part of]] Onset: 07-30-2021 Episodic Residual codes; unclassified (10 sources) History of cardioversion; Translations: [Personal history of other medical treatment] Onset: 01-16-2019 03-11-2019 Episodic Comment on above: Successful Elikarunais a nd sotalol assisted DC cardioversion from atrial flutter to normal sinus rhythm with paced ventricular response with a single 250 J biphasic synchronized shock. 01/16/19 @[facility] per DJN Unclassified (7 sources) Family history of ischemic heart disease and other diseases of the circulatory system; Translations: [Family history of malignant neoplasm of trachea, bronchus and lung] Onset: 09-09-2016 11-27-2014 Episodic Unclassified (2 sources) Preoperative cardiovascular examination ; Translations: [Encounter for preprocedural cardiovascular examination] Onset: 05-16-2014 Resolved: 08-12-2015 05-16-2014 Results Test Name Value Interpretation Reference Range Facility Ribs Uni Min 3V w/PA Cheston 08-16-2024 Ribs Uni Min 3V w/PA Chest [facility] [address] [place] [address] [id number] Ribs Uni Min 3V w/PA Chest MR#: [id number] Acct: [id number] Name: LC GRUBBS Rep #: [id number] : 1950 M 73 From: Mary mccarty MD PCP: Dr. Marciano Weaver MD Status: REG CLI Study: Ribs Uni Min 3V w/PA Chest Date of Exam: 08/16 Exam# [id number] Ordering Dr: Al Espinoza MD PROCEDURE: RIBS UNI MIN 3V W/PA CHEST 08/16/2024 REASON FOR EXAM: PAIN RIBS TECHNIQUE: RIBS UNI MIN 3V W/PA CHEST COMPARISON: Prior examination on 09/26/2019 FINDINGS: The lungs are expanded. Minimal linear atelectatic changes are seen in the lung bases. There is no demonstrated parenchymal abnormality. There is no demonstrated pleural abnormality. The heart is enlarged. Left-sided pacemaker again seen. Normal mediastinum and fernando. Normal visualized pulmonary arteries. Normal visualized aortic arch and descending thoracic aorta. The bones are osteoporotic. Normal visualized thoracic spine. Normal visualized clavicles, and shoulders. There is slight deformity of right ribs 6 and 11 possibly representing nondisplaced right-sided rib fractures. There is no demonstrated abnormality of the visualized soft tissue structures of the upper abdomen. RAD/Ribs Uni Min 3V w/PA Chest IMPRESSION: Osteoporosis. Possible nondisplaced fractures of right ribs 6 and 11. Please correlate clinically. Cardiomegaly. Minimal linear atelectatic changes in the lung bases. Reading [facility] CC: Dr. Marciano Weaver MD; Dr. Al Espinoza MD Lining Strap Closer: Signed Normal [facility] Chiropractic Reporton 2024 Chiropractic Report [facility] [address] [place] [address] OFFICE VISIT Date of Service: 08/14/24 MR#: [id number] Acct: [id number] Name: LC GRUBBS Rep #: [id number] : 1950 Provider: LATONIA Tovar Age/Sex: 73/M [place] [facility] Status: Signed Intake Vital Signs 12/29/23 14:29 07/16/24 10:52 08/14/24 09:33 Height 5 ft 9 in 5 ft 9 in 5 ft 9 in Weight: 280 lb 280 lb BMI 41.3 41.3 BP 154/90 H 136/72 H Blood Pressure Location Rt brachial Position Sitting Respiration 17 Pulse 74 Pulse Source Monitor Pulse Oximetry (%) 95 Oxygen Delivery Method room air Intake Visit Reasons: REEVAL Chief Complaint: cervical pain Is patient in pain?: Yes (neck) Pain scale (1-10): 4 Allergies moxifloxacin HCl (From Avelox) Allergy (Verified 08/14/24 09:34) Hives Medications ???Medication ???Instructions ???Recorded ???Confirmed ???Type bupropion HCl 150 mg 24 hr tablet, 150 mg PO BID depression 6 08/14/24 History extended release atorvastatin 20 mg tablet 20 mg PO DAILY cholesterol 7 08/14/24 History tramadol 50 mg tablet 50 mg PO BID pain 03/01/18 5 History cyanocobalamin (vitamin B-12) 1,000 mcg PO DAILY vitamin 10/17/1 9 08/14/24 History 1,000 mcg capsule fluticasone furoate 100 1 puff inhalation PRN PRN Sob /Or 11/22/18 08/14/24 History mcg/actuation blister powder for Wheezing inhalation potassium citrate 5 mEq (540 mg) 5 meq PO DAILY 09/17/19 08/14/24 H istory tablet,extended release aspirin 81 mg tablet,delayed 81 mg PO DAILY 11/18/19 08/14/24 H istory release (Adult Low Dose Aspirin) furosemide 40 mg tablet 20 mg PO DAILY diuretic 11/18/19 0 08/14/24 History montelukast 10 mg tablet 10 mg PO DAILY 11/18/19 08/14/24 H istory apixaban 5 mg tablet (Eliquis) 5 mg PO BID blood thinner #180 tab s 12/25/19 08/14/24 Rx magnesium aspart,citrate,oxide 400 mg PO BID 12/26/19 08/14/24 Hi story multivitamin,tx-iron-m inerals 27 2 tablet PO DAILY vitamin 04/27/20 08/14/24 History mg-0.4 mg tablet metformin 500 mg tablet,extended 1,000 mg PO DAILY 06/28/21 5 History release 24hr (osmotic) dulaglutide 1.5 mg/0.5 mL ml subcut 01/06/22 08/14/24 Histor y subcutaneous pen injector (Trulicity) ascorbic acid (vitamin C) 500 mg mg PO 12/29/23 08/14/24 History capsule budesonide 160 mcg-glycopyr 9 2 inh inhalation ONCE 12/29/2310/31 History mcg-formot 4.8 mcg/actuation HFA inhaler (Breztri Aerosphere) carvedilol 3.125 mg tablet 3.125 mg PO BID 12/29/23 08/14/24 History cholecalciferol (vitamin D3) 25 25 mcg PO QDAY 12/29/23 08/14/24 H istory mcg (1,000 unit) capsule dapagliflozin propanediol 10 mg 10 mg PO QAM 12/29/23 08/14/24 His tory tablet (Farxiga) dupilumab 300 mg/2 mL subcutaneous 300 mg subcut MONTHLY 12/29/23 0 08/14/24 History pen injector (Dupixent) famotidine 40 mg tablet 40 mg PO QDAY 12/29/23 08/14/24 Hi story febuxostat 80 mg tablet (Uloric) 80 mg PO QDAY 12/29/23 08/14/24 Hi story fluticasone propionate 100 1 inh inhalation BID 12/29/23/10/31 History mcg/actuation blister powder for inhalation (Flovent Diskus) sotalol 120 mg tablet 120 mg PO BID 12/29/23 08/14/24 Hi story tamsulosin 0.4 mg capsule 0.4 mg PO QDAY 12/29/23 08/14/24 H istory Have you fallen in the past year?: No PFSH Medical History Rectal bleeding Vitamin D deficiency History of nephrolithiasis Osteoarthritis Hyperlipidemia Atherosclerosis of coronary artery of [place] heart without angina pectoris Stage 2 moderate COPD by GOLD classification Diabetes type 2, controlled Asthma ARMANDO (obstructive sleep apnea) Cardiomyopathy, idiopathic HTN (hypertension), benign Persistent atrial fibrillation Surgical History H/O ventral hernia repair History of gastric bypass History of cardioversion (01/16/19) Hx of cholecystectomy (11/22/17) H/O oral surgery History of lithotripsy Presence of biventricular implantable cardioverter-defibrill ator (ICD) Family History Father Cancer Lung CA Mother Cancer Sister Myocardial infarction Diabetes Heart disease Uncle CAD (coronary artery disease) Social History Smoking Status: Never smoker alcohol intake: never substance use type: does not use caffeine: No what type of physical activity do you participate in: none seatbelt use: always do you feel safe at home: Yes HPI REEVAL Chief Complaint: neck pain Visit Number: 1 Details: Lc is a 73 y/o male here for a reevaluation of back pain. Pt. rep (more content not included)... Normal [facility] CT ABD/PEL W IVCONon 08-12- 025 CT ABD/PEL W IVCON * * *Final Report* * * DATE OF EXAM: Aug 12 2024 11:[facility] - CT ABD/PEL W IVCON / PROCEDURE REASON: Splenomegaly, not elsewhere classified * * * * Physician Interpretation * * * * EXAMINATION: CT ABDOMEN AND PELVIS WITH IV CONTRAST CLINICAL HISTORY: Follow-up of splenomegaly and multiple enlarging splenic lesions TECHNIQUE: CT of the abdomen and pelvis was performed using standard technique, scanning from just above the dome of the diaphragm to the upper thighs. Contrast: IV: 100 ml of Omnipaque 350 CT Radiation dose: Integrated Dose-length product (DLP) for this visit = 1099 mGy*cm. CT Dose Reduction Employed: Automated exposure control(AEC) and iterative recon COMPARISON: CT abdomen pelvis 10/16/2023 FINDINGS: LOWER CHEST: No significant abnormality when allowing for motion artifact, which limits visibility.. HEPATOBILIARY: Few scattered subcentimeter hypodensities throughout the liver are again noted and are too small to accurately characterize but likely reflect small cysts. Otherwise, the liver is normal in appearance. The gallbladder is absent. There is mild biliary ductal dilatation, which can be seen in the postcholecystectomy setting. SPLEEN, PANCREAS, ADRENAL GLANDS: Pancreas and adrenal glands within normal limits. Splenomegaly to 16 mm AP dimension is grossly unchanged. However, multiple hypodense lesions within the spleen have mildly increased in size. For example: --A 2.8 cm hypodense lesion at the medial aspect of the spleen (5:41) previously measured 2.3 cm --A 24 cm lesion at the anterior aspect of the spleen (axial 30) previously measured 1.8 cm --A 1.4 cm at the inferior aspect of the spleen (axial 50) previously measured 0.9 cm KIDNEYS, URETERS, BLADDER: Symmetric parenchymal enhancement with no hydronephrosis. A 1.3 cm calculus of the left renal pelvis is again noted. There is mild increase upstream hydronephrosis with surrounding haziness of the adjacent fat. A 3 mm calculus is present within the bladder in the region of the left UVJ. Additional punctate nonobstructing calculi are present within the right kidney. Ureters and bladder within normal limits. PROSTATE, SEMINAL VESICLES: No CT finding of pathology. BOWEL: Postsurgical changes from prior sleeve gastrectomy are again noted. No evidence of obstruction. Scattered diverticula are present throughout the colon. Normal appendix. PERITONEAL/EXTRAPERITO BRAD SPACE: No free air or free fluid. LYMPH NODES: No adenopathy. VASCULAR: Grossly unremarkable. ABDOMINAL WALL: Small fat-containing supraumbilical hernia. MUSCULOSKELETAL: No acute osseous abnormality. Multilevel degenerative disease of the thoracolumbar spine is noted. IMPRESSION: 1. Again demonstrated is splenomegaly with multiple hypodense lesions within the spleen. No associated lymphadenopathy of the abdomen or pelvis is seen. Many of the splenic lesions have mildly increased in size when compared to prior exam. Given the continued increase in size, tissue sampling should be considered if clinically feasible. 2. Nephrolithiasis, with a 1.3 cm calculus of the left renal pelvis again noted and now more centrally located within the renal pelvis. There is also new haziness of the fat surrounding the left renal pelvis, and thickening of the proximal ureter distal to the calculus. These findings may reflect an infectious or inflammatory etiology, though a neoplastic process is not excluded. Further evaluation with CT urogram and urologic consultation is recommended. Also noted is a 3 mm calculus of the bladder in the region of the left UVJ. ACTIONABLE RESULT: FOLLOW-UP Acuity: Actionable Findings: Kidneys/Ureters/Bladde r Routing Code: GU_1 Recommendation: CT UROGRAM WO/W IVCON Time Frame: At the discretion of the clinical team. COMMUNICATION: Results will be communicated with the ordering provider via [employer] staff message or phone message by [facility] within 2 business days of report finalization. --END OF FINDING-- Lining Strap Closer: MARYAM Transcribe Date/Time: Aug 15 2024 7:08P Dictated by : RENITA GIRON MD This examination was interpreted and the report reviewed and electronically signed by: RENITA GIRON MD on Aug 15 2024 7:24PM EST [id number] ACTIONABLE Invalid Interpretation Code [facility] Creatinine + eGFR Pnl SerPlB ldon 08-12-2024 Creatinine and Glomerular filtration rate.predicted panel (S/P/Bld) 72 mL/min/1.73m??? Normal >=60 [facility] Comment on above: Order Comment: Speci men Type: BLOOD SPECIMENOrdering Facility: [facility] Address: [address] [place] [address] Result Comment: Caitlin mated Glomerular Filtration Rate (eGFR) is calculated using the 2020 CKD-EPI creatinine equation. This equation utilizes serum creatinine, sex, and age as parameters. The creatinine assay has traceable calibration to isotope dilution-mass spectrometry. Refer to KDIGO guidelines for clinical interpretation. In patients with unstable renal function, e.g. those with acute kidney injury, the eGFR may not accurately reflect actual GFR. Performed By: #### 4 5066-8 ####[facility] [id number] [place] [address] [place] Creatinine and Glomerular fi ltration rate.predicted panel (S/P/Bld)on 08-12-2024 Creatinine [Mass/Vol] 1.08 mg/dL Normal 0.73-1.22 [facility] Comment on above: Order Comment: Speci men Type: BLOOD SPECIMENOrdering Facility: [facility] Address: [address] [place] [address] Performed By: #### 4 5066-8 ####[facility] [id number] [place] [address] [place] Microalb:Creat Ratio,Random URon 07-30-2024 MALB:CREAT 55.7 mg/g CRE Normal [facility] Comment on above: Order Comment: Order Date: 07/09/24 Order Info: [id number] - MIALB Result Comment: AMENDED REPORT 07/30/24 1121 MALB:CREAT previously reported as: 556.8 mg/g CRE Performed By: #### L 502.0250 #### [facility] [address] [place], [place], [address] CNPRyanne 07-25-2024 TABBYN Telephone (RAAFVC) LC GRUBBS ([id number]) 1950 M Date Time Provider Department 07/25/24 LUCIE REYNOLDS During your visit today, we recorded the following information about you: Allergies As of Date: 07/25/2024 Noted Allergy Reaction AVELOX (MOXIFLOXACIN HCL) 04/17/2012 4 - Hives Date Reviewed: 11/06/2023 Reviewed by: Zulma Cronin LPN - Fully Assessed Reason for Visit: Appointment [186] Prescriptions as of 07/30/2024 - iv contrast (will be provided with radiology test) CT ABD/PEL -Inject, intravenously, once for 1 dose.No IV access, insert saline lock prior to the beginning of sedation, infusion, injection of imaging exam. Discontinue saline lock post exam. If Pt. has a central line or IVAD, may access for administration according to line specific nursing protocol. Once exam is complete flush line and de-access according to line specific nursing protocol in the CT contrast administration guidelines link. - apixaban (ELIQUIS) 5 mg tab(s) Take 5 mg by mouth two times a day. - flash glucose scanning reader (Bolt HR CASSANDRA 2 READER) - metFORMIN ER (GLUCOPHAGE XR) 500 mg 24 hr tablet Take 3 tablets by mouth once daily. Patient may take 2 pills with breakfast and one with dinner - dulaglutide (TRULICITY) 1.5 mg/0.5 mL pen injector Inject 1.5 mg subcutaneously one time a week. - CPAP Please lower PAP to 15/11 cmH2O. Please send us 2 week download at new pressure. 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 Also please refit patient's dreamwear FFM - the headgear/tubing is likely one size too small and thus pulling up on nose through the night. DME = [employer] - carvedilol (COREG) 6.25 mg tablet Take 3.125 mg by mouth twice daily with meals. - furosemide (LASIX) 20 mg tablet Take 20 mg by mouth once daily. - capsaicin (ZOSTRIX) 0.025 % cream Apply to affected area three times daily. - Cyanocobalamin 1,000 mcg subl Dissolve 1 tablet under the tongue once daily. - CPAP Please adjust bilevel to 17/13 cmH2O and turn off backup rate. Please provide download in 2-3 weeks. Please fit with dreamwear full face mask (under nose - med frame, large cushion). - ADVAIR DISKUS 500-50 mcg/dose dsdv INHALE ONE PUFF INTO THE LUNGS TWICE DAILY - potassium citrate ER (UROCIT-K) 5 mEq (540 mg) TbER Take 1 tablet by mouth once daily. - EASY TOUCH 31 gauge x 5/16 1 Each by INJECTION(UNSPECIFIED PARENTERAL ROUTES) route five times daily. - aspirin, enteric coated (ASPIRIN, ENTERIC COATED) 81 mg EC tablet Take 1 tablet by mouth once daily. - ascorbic acid, vitamin C, (VITAMIN C) 500 mg tablet Take 500 mg by mouth once daily. - Fluticasone Propionate (FLOVENT DISKUS) 100 mcg/actuation Inhale 1 Puff as instructed twice daily. After Advair - tamsulosin ER (FLOMAX) 0.4 mg Take 0.4 mg by mouth once daily. - albuterol HFA (PROVENTIL HFA, VENTOLIN HFA) 90 mcg/actuation inhaler Inhale 2 Puffs as instructed every 4 hours as needed for Wheezing/Shortness of Breath. - alpha lipoic acid 200 mg cap Take 200 mg by mouth once daily. - magnesium oxide 400 mg magnesium tab Take 400 mg by mouth twice daily. - CPAP Change bilevel setting to 20/15 cmH2O with BR 16 BPM. Please fax us download in 2 weeks. - buPROPion XL (WELLBUTRIN XL) 150 mg 24 hr tablet Take 150 mg by mouth once daily. - montelukast (SINGULAIR) 10 mg tablet Take 10 mg by mouth daily at bedtime. - atorvastatin (LIPITOR) 20 mg tablet Take 20 mg by mouth once daily. - multivitamin ORAL tablet Take one(1) tablet daily. Problem List As Of Date 07/25/2024 Noted Resolved Pain [R52] 03/23/2010 Elbow fracture [S42.409A] 04/14/2010 Type II or unspecified type diabetes mellitus w*06/14/2012 Morbid obesity (HCC) [E66.01] 06/14/2012 Encounter for dietary counseling and surveillan*06/14/2012 Cardiomyopathy (HCC) [I42.9] 06/14/2012 Anemia [D64.9] 06/27/2012 Implantable cardioverter-defibrill ator (ICD) in*01/31/2013 Intellectual disability [F79] 09/03/2013 Illiterate [Z55.0] 10/24/2013 Cholelithiasis [K80.20] 11/12/2013 NAFLD (nonalcoholic fatty liver disease) [K76.0]11/12/2013 OPENED IN ERROR [915159] 11/12/2013 Combined form of senile cataract of both eyes [*09/01/2015 Type 2 diabetes mellitus without retinopathy (H*09/01/2015 Vitreous floaters of both eyes [H43.393] 09/01/2015 Obstructive sleep apnea (adult) (pediatric) [G4*09/23/2016 Cataract, nuclear sclerotic senile [H25.10] 09/23/2016 Essential hypertension [I10] 09/23/2016 Cortical age-related cataract, bilateral [H25.0*09/07/2017 Obesity [E66.9] 09/03/2019 Acute respiratory insufficiency, postoperative *09/04/2019 Thrombocytopenia (HCC) [D69.6] 09/04/2019 (more content not included)... Normal [facility] Absolute lymphocyte countOrd ered By: Marciano Weaver on 07-10-2024 Lymphocytes Auto (Unsp spec) [#/Vol] 1.13 10*3/uL 0.83-4.51 [facility] Absolute neutrophil countOrd ered By: Marciano Weaver on 07-10-2024 Neutrophils (Bld) [#/Vol] 5.5 10*3/uL 2.0-7.7 [facility] Anion gap in Serum or Plasma Ordered By: Marciano Weaver on 07-10-2024 Anion gap [Moles/Vol] 12 mmol/L 5-15 [facility] Automated lymphocyte count a s percentage of total leukocytesOrdered By: Marciano Weaver on 07-10-2024 Lymphocytes/100 WBC Auto (Unsp spec) 15.1 % Low 19-41 [facility] BUN/creatinine ratioOrdered By: Marciano Weaver on 07-10-2024 Urea nitrogen/Creatinine [Mass ratio] 10.3 mg/mg 10-20 [facility] Basophil percentageOrdered B y: Marciano Weaver on 07-10-2024 Basophils/100 WBC (Bld) 0.8 % 0-1 [facility] Bilirubin, totalOrdered By: Marciano Weaver on 07-10-2024 Bilirubin [Mass/Vol] 3.60 mg/dL High 0.00-1.30 [facility] CBC W/Diff, Automatedon Absolute Lymph 1.13 X10 3/uL Normal 0.83-4.51 [facility] Comment on above: Order Comment: Order Date: 07/09/24 Order Info: 0184-1 - CBCD Performed By: #### L 100.0100, L500.4100, L500.4050 #### [facility] [address] [place], [address] Absolute Neut 5.5 X10 3/uL Normal 2.0-7.7 [facility] Comment on above: Order Comment: Order Date: 07/09/24 Order Info: 0184-1 - CBCD Performed By: #### L 100.0100, L500.4100, L500.4050 #### [facility] [address] [place], [address] Basophils/100 WBC (Bld) 0.8 % Normal 0-1 [facility] Comment on above: Order Comment: Order Date: 07/09/24 Order Info: 0184-1 - CBCD Performed By: #### L 100.0100, L500.4100, L500.4050 #### [facility] [address] [place], [address] Eosinophils/100 WBC (Bld) 2.7 % Normal 0-5 [facility] Comment on above: Order Comment: Order Date: 07/09/24 Order Info: 0184-1 - CBCD Performed By: #### L 100.0100, L500.4100, L500.4050 #### [facility] [address] [place], [address] Erythrocyte distribution width (RBC) [Ratio] 15.9 % High 11.6-14.6 [facility] Comment on above: Order Comment: Order Date: 07/09/24 Order Info: 0184-1 - CBCD Performed By: #### L 100.0100, L500.4100, L500.4050 #### [facility] [address] [place], [address] Hematocrit (Bld) [Volume fraction] 40.2 % Normal 40-54 [facility] Comment on above: Order Comment: Order Date: 07/09/24 Order Info: 0184-1 - CBCD Performed By: #### L 100.0100, L500.4100, L500.4050 #### [facility] [address] [place], [address] Hemoglobin (Bld) [Mass/Vol] 13.0 g/dL Normal 13.0-16.5 [facility] Comment on above: Order Comment: Order Date: 07/09/24 Order Info: 0184-1 - CBCD Performed By: #### L 100.0100, L500.4100, L500.4050 #### [facility] [address] [place], [address] IG% 0.400 Normal 0.0-0.9 [facility] Comment on above: Order Comment: Order Date: 07/09/24 Order Info: [id number] - CBCD Result Comment: IG% - Immature Granulocytes (promyelocytes, myelocytes and metamyelocytes) > 1% indicates that a LEFT SHIFT is Present. Performed By: #### L 100.0100, L500.4100, L500.4050 #### [facility] [address] [place], [address] Lymphocytes/100 WBC (Bld) 15.1 % Low 19-41 [facility] Comment on above: Order Comment: Order Date: 07/09/24 Order Info: 0184-1 - CBCD Performed By: #### L 100.0100, L500.4100, L500.4050 #### [facility] [address] [place], [address] MCH (RBC) [Entitic mass] 27.6 pg Normal 27.0-32.0 [facility] Comment on above: Order Comment: Order Date: 07/09/24 Order Info: 0184-1 - CBCD Performed By: #### L 100.0100, L500.4100, L500.4050 #### [facility] [address] [place], [address] MCHC (RBC) [Mass/Vol] 32.3 g/dL Normal 32-36 [facility] Comment on above: Order Comment: Order Date: 07/09/24 Order Info: 0184-1 - CBCD Performed By: #### L 100.0100, L500.4100, L500.4050 #### [facility] [address] [place], [address] MCV (RBC) [Entitic vol] 85.4 fL Normal 80-94 [facility] Comment on above: Order Comment: Order Date: 07/09/24 Order Info: 0184-1 - CBCD Performed By: #### L 100.0100, L500.4100, L500.4050 #### [facility] [address] [place], [address] Monocytes/100 WBC (Bld) 7.5 % Normal 0-10 [facility] Comment on above: Order Comment: Order Date: 07/09/24 Order Info: 0184-1 - CBCD Performed By: #### L 100.0100, L500.4100, L500.4050 #### [facility] [address] [place], [address] Neutrophils/100 WBC (Bld) 73.5 % High 47-70 [facility] Comment on above: Order Comment: Order Date: 07/09/24 Order Info: 0184-1 - CBCD Performed By: #### L 100.0100, L500.4100, L500.4050 #### [facility] [address] [place], [address] Nucleated RBC (Bld) [#/Vol] 0 10*3/uL Normal 0-5 [facility] Comment on above: Order Comment: Order Date: 07/09/24 Order Info: 0184-1 - CBCD Performed By: #### L 100.0100, L500.4100, L500.4050 #### [facility] [address] [place], [address] Platelet mean volume (Bld) [Entitic vol] 10.7 fL Normal 6.2-12.0 [facility] Comment on above: Order Comment: Order Date: 07/09/24 Order Info: 0184-1 - CBCD Performed By: #### L 100.0100, L500.4100, L500.4050 #### [facility] [address] [place], [address] Platelets (Bld) [#/Vol] 154 10*3/uL Normal 150-450 [facility] Comment on above: Order Comment: Order Date: 07/09/24 Order Info: 0184-1 - CBCD Performed By: #### L 100.0100, L500.4100, L500.4050 #### [facility] [address] [place], [address] RBC (Bld) [#/Vol] 4.71 10*6/uL Normal 4.6-6.2 [facility] Comment on above: Order Comment: Order Date: 07/09/24 Order Info: 0184-1 - CBCD Performed By: #### L 100.0100, L500.4100, L500.4050 #### [facility] [address] [place], [address] RDW SD 49.1 fl High 35.1-43.9 [facility] Comment on above: Order Comment: Order Date: 07/09/24 Order Info: 0184-1 - CBCD Performed By: #### L 100.0100, L500.4100, L500.4050 #### [facility] [address] [place], [place], [id number] WBC (Bld) [#/Vol] 7.5 10*3/uL Normal 4.4-11.0 [facility] Comment on above: Order Comment: Order Date: 07/09/24 Order Info: 0184-1 - CBCD Performed By: #### L 100.0100, L500.4100, L500.4050 #### [facility] [address] [place], [address] Calculated very low density lipoprotein (VLDL) cholesterol measurementOrdered By: Marciano Weaver on 07-10-2024 Calculated very low density lipoprotein (VLDL) cholesterol measurement 18 mg/dL 5-40 [facility] Carbon dioxide, total [Moles /volume] in Central venous bloodOrdered By: Marciano Weaver on 07-10-2024 CO2 [Moles/Vol] 23.4 mmol/L 21.0-32.0 [facility] Chloride assayOrdered By: Ian Weaver on 07-10-2024 Chloride [Moles/Vol] 107 mmol/L 98-108 [facility] Comprehensive Metabolic Prof ilon 07-10-2024 Albumin [Mass/Vol] 4.0 g/dL Normal 3.4-4.8 [facility] Comment on above: Order Comment: Order Date: 07/09/24 Order Info: [id number] - CMP Order Info: [id number] - LIPID Performed By: #### L 100.0100, L500.4100, L500.4050 #### [facility] [address] [place], [place], [address] Albumin/Globulin [Mass ratio] 1.3 {ratio} Normal 0.9-2.4 [facility] Comment on above: Order Comment: Order Date: 07/09/24 Order Info: [id number] - CMP Order Info: [id number] - LIPID Performed By: #### L 100.0100, L500.4100, L500.4050 #### [facility] [address] [place], [address] ALK PHOS 68 U/L Normal 40-129 [facility] Comment on above: Order Comment: Order Date: 07/09/24 Order Info: 0786-1 - CMP Order Info: [id number] - LIPID Performed By: #### L 100.0100, L500.4100, L500.4050 #### [facility] [address] [place], [address] ALT [Catalytic activity/Vol] 13 U/L Normal <=46 [facility] Comment on above: Order Comment: Order Date: 07/09/24 Order Info: 07- - CMP Order Info: [id number] - LIPID Performed By: #### L 100.0100, L500.4100, L500.4050 #### [facility] [address] [place], [address] AST [Catalytic activity/Vol] 21 U/L Normal <=37 [facility] Comment on above: Order Comment: Order Date: 07/09/24 Order Info: 0786- - CMP Order Info: [id number] - LIPID Performed By: #### L 100.0100, L500.4100, L500.4050 #### [facility] [address] [place], [address] Bilirubin [Mass/Vol] 3.60 mg/dL High 0.00-1.30 [facility] Comment on above: Order Comment: Order Date: 07/09/24 Order Info: 0786-1 - CMP Order Info: [id number] - LIPID Performed By: #### L 100.0100, L500.4100, L500.4050 #### [facility] [address] [place], [address] BUN/CRE 10.3 RATIO Normal 10-20 [facility] Comment on above: Order Comment: Order Date: 07/09/24 Order Info: 0786-1 - CMP Order Info: [id number] - LIPID Performed By: #### L 100.0100, L500.4100, L500.4050 #### [facility] [address] [place], [address] Calcium [Mass/Vol] 9.0 mg/dL Normal 7.6-11.0 [facility] Comment on above: Order Comment: Order Date: 07/09/24 Order Info: 0786-1 - CMP Order Info: [id number] - LIPID Performed By: #### L 100.0100, L500.4100, L500.4050 #### [facility] [address] [place], [address] Chloride [Moles/Vol] 107 mmol/L Normal 98-108 [facility] Comment on above: Order Comment: Order Date: 07/09/24 Order Info: 0786-1 - CMP Order Info: [id number] - LIPID Performed By: #### L 100.0100, L500.4100, L500.4050 #### [facility] [address] [place], [address] CO2 [Moles/Vol] 23.4 mmol/L Normal 21.0-32.0 [facility] Comment on above: Order Comment: Order Date: 07/09/24 Order Info: 0786-1 - CMP Order Info: [id number] - LIPID Performed By: #### L 100.0100, L500.4100, L500.4050 #### [facility] [address] [place], [address] Creatinine [Mass/Vol] 1.31 mg/dL High 0.70-1.20 [facility] Comment on above: Order Comment: Order Date: 07/09/24 Order Info: 0786-1 - CMP Order Info: [id number] - LIPID Performed By: #### L 100.0100, L500.4100, L500.4050 #### [facility] [address] [place], [address] GAP 12 Normal 5-15 [facility] Comment on above: Order Comment: Order Date: 07/09/24 Order Info: 0786-1 - CMP Order Info: [id number] - LIPID Performed By: #### L 100.0100, L500.4100, L500.4050 #### [facility] [address] [place], [address] GFR/1.73 sq M.predicted among non-blacks MDRD (S/P/Bld) [Vol rate/Area] 57 mL/min/{1.73_m2} Low >60 [facility] Comment on above: Order Comment: Order Date: 07/09/24 Order Info: 07 - CMP Order Info: [id number] - LIPID Result Comment: mL/m in/1.73m2 CKD-EPI Creatinine Equation (2020) Performed By: #### L 100.0100, L500.4100, L500.4050 #### [facility] [address] [place], [address] Globulin (S) [Mass/Vol] 3.0 g/dL Normal 2.2-4.2 [facility] Comment on above: Order Comment: Order Date: 07/09/24 Order Info: 0786- - CMP Order Info: [id number] - LIPID Performed By: #### L 100.0100, L500.4100, L500.4050 #### [facility] [address] [place], [address] Glucose [Mass/Vol] 162 mg/dL High 70-99 [facility] Comment on above: Order Comment: Order Date: 07/09/24 Order Info: 0786-1 - CMP Order Info: [id number] - LIPID Performed By: #### L 100.0100, L500.4100, L500.4050 #### [facility] [address] [place], [address] Potassium [Moles/Vol] 3.8 mmol/L Normal 3.3-5.1 [facility] Comment on above: Order Comment: Order Date: 07/09/24 Order Info: 0786-1 - CMP Order Info: [id number] - LIPID Performed By: #### L 100.0100, L500.4100, L500.4050 #### [facility] [address] [place], [address] Sodium [Moles/Vol] 142 mmol/L Normal 133-145 [facility] Comment on above: Order Comment: Order Date: 07/09/24 Order Info: 0786-1 - CMP Order Info: [id number] - LIPID Performed By: #### L 100.0100, L500.4100, L500.4050 #### [facility] [address] [place], [address] T PROT 7.0 g/dL Normal 5.9-8.4 [facility] Comment on above: Order Comment: Order Date: 07/09/24 Order Info: [id number] - CMP Order Info: [id number] - LIPID Performed By: #### L 100.0100, L500.4100, L500.4050 #### [facility] [address] [place], [address] Urea nitrogen [Mass/Vol] 14 mg/dL Normal 4-19 [facility] Comment on above: Order Comment: Order Date: 07/09/24 Order Info: [id number] - CMP Order Info: [id number] - LIPID Performed By: #### L 100.0100, L500.4100, L500.4050 #### [facility] [address] [place], [address] Eosinophil percentageOrdered By: Marciano Weaver on 07-10-2024 Eosinophils/100 WBC (Bld) 2.7 % 0-5 [facility] Erythrocyte distribution wid th ratioOrdered By: Marciano Weaver on 07-10-2024 Erythrocyte distribution width (RBC) [Ratio] 15.9 % High 11.6-14.6 [facility] Erythrocyte distribution wid th standard deviationOrdered By: Marciano Weaver on 07-10-2024 Erythrocyte distribution width (RBC) [Ratio] 49.1 fl High 35.1-43.9 [facility] Glomerular filtration rate ( GFR) estimation/1.73 sq m using serum, plasma, or whole bOrdered By: Marciano Weaver on 07-10-2024 GFR/1.73 sq M.predicted among non-blacks MDRD (S/P/Bld) [Vol rate/Area] 57 mL/min/{1.73_m2} Low >60 [facility] Comment on above: mL/min/1.73m2 CKD-EP I Creatinine Equation (2020) Hematocrit Auto (Bld) [Volum e fraction]Ordered By: Marciano Weaver on 07-10-2024 Hematocrit (Bld) [Volume fraction] 40.2 % 40-54 [facility] Hemoglobin measurementOrdere d By: Marciano Weaver on 07-10-2024 Hemoglobin (Bld) [Mass/Vol] 13.0 g/dL 13.0-16.5 [facility] Immature granulocytes/100 WB C Auto (Bld)Ordered By: Marciano Weaver on 07-10-2024 Immature granulocytes/100 WBC (Bld) 0.400 % 0.0-0.9 [facility] Comment on above: IG% - Immature Granu locytes (promyelocytes, myelocytes and metamyelocytes) > 1% indicates that a LEFT SHIFT is Present. LDL calc ser/plasOrdered By: Marciano Weaver on 07-10-2024 Cholesterol in LDL [Mass/Vol] 82 mg/dL [facility] Comment on above: Wcpzjnzble=759-844 m g/dL & Higher Yoll=158 mg/dL or greater Laboratory - Chemistry and C hemistry - challengeOrdered By: Marciano Weaver on 07-10-2024 AST [Catalytic activity/Vol] 21 U/L <38 [facility] Lipid Profileon 07-10-2024 CHOL:HDL 4.70 Normal [facility] Comment on above: Order Comment: Order Date: 07/09/24 Order Info: 0786- - CMP Order Info: [id number] - LIPID Performed By: #### L 100.0100, L500.4100, L500.4050 #### [facility] [address] [place], [address] Cholesterol [Mass/Vol] 127 mg/dL Normal <=200 [facility] Comment on above: Order Comment: Order Date: 07/09/24 Order Info: 07 - [facility] Order Info: [id number] - LIPID Result Comment: Chol esterol level, Desirable <200 mg/dL Borderline high cholesterol 200-239 mg/dL High cholesterol >=240 mg/dL Recommendations of the NCEP Adult Treatment Panel for the following risk-cutoff thresholds for the [place] population. Performed By: #### L 100.0100, L500.4100, L500.4050 #### [facility] [address] [place], [address] Cholesterol in HDL [Mass/Vol] 27 mg/dL Low [facility] Comment on above: Order Comment: Order Date: 07/09/24 Order Info: 0786 - [facility] Order Info: [id number] - LIPID Result Comment: [place] onal Cholesterol Education Program (NCEP) guidelines: <40 mg/dL: Low HDL-cholesterol (major risk factor for CHD) >= 60 mg/dL: High HDL-cholesterol (negative risk factor for CHD) HDL-cholesterol is affected by a number of factors, e.g. smoking, exercise, hormones, sex and age. Performed By: #### L 100.0100, L500.4100, L500.4050 #### [facility] [address] [place], [address] Cholesterol in LDL [Mass/Vol] 82 mg/dL Normal [facility] Comment on above: Order Comment: Order Date: 07/09/24 Order Info: 07 - [facility] BARRE Order Info: [id number] - LIPID Result Comment: Bord ivaebb=796-119 mg/dL Higher Zrpo=469 mg/dL or greater Performed By: #### L 100.0100, L500.4100, L500.4050 #### [facility] [address] [place], [address] Cholesterol in VLDL [Mass/Vol] 18 mg/dL Normal 5-40 [facility] Comment on above: Order Comment: Order Date: 07/09/24 Order Info: [id number] - CMP Order Info: [id number] - LIPID Performed By: #### L 100.0100, L500.4100, L500.4050 #### [facility] [address] [place], [address] Triglyceride [Mass/Vol] 92 mg/dL Normal [facility] Comment on above: Order Comment: Order Date: 07/09/24 Order Info: [id number] - CMP Order Info: [id number] - LIPID Result Comment: The drugs N-Acetylcysteine and Metamizole may falsely depress this assay. Normal range: <150 mg/dL Borderline High: 150-199 mg/dL High: 200-499 mg/dL Very High: >500 mg/dL Performed By: #### L 100.0100, L500.4100, L500.4050 #### [facility] [address] [place], [address] MCV (mean corpuscular volume ) determinationOrdered By: Marciano Weaver on 07-10-2024 MCV (RBC) [Entitic vol] 85.4 fL 80-94 [facility] Mean corpuscular hemoglobin (MCH) determinationOrdered By: Marciano Weaver on 07-10-2024 MCH (RBC) [Entitic mass] 27.6 pg 27.0-32.0 [facility] Mean corpuscular hemoglobin concentration (MCHC) determinationOrdered By: Marciano Weaver on 07-10-2024 MCHC (RBC) [Mass/Vol] 32.3 g/dL 32-36 [facility] Mean platelet volume determi nationOrdered By: Marciano Weaver on 07-10-2024 Platelet mean volume (Bld) [Entitic vol] 10.7 fL 6.2-12.0 [facility] Monocyte percentageOrdered B y: Marciano Weaver on 07-10-2024 Monocytes/100 WBC (Bld) 7.5 % 0-10 [facility] Neutrophil percentageOrdered By: Marciano Weaver on 07-10-2024 Neutrophils/100 WBC (Bld) 73.5 % High 47-70 [facility] Nucleated red blood cell per centageOrdered By: Marciano Weaver on 07-10-2024 Nucleated RBC/100 WBC (Bld) [Ratio] 0 % 0-5 [facility] Platelet countOrdered By: Ian Weaver on 07-10-2024 Platelets (Bld) [#/Vol] 154 10*3/uL 150-450 [facility] Potassium measurement (mass/ volume)Ordered By: Marciano Weaver on 07-10-2024 Potassium (Unsp spec) [Mass/Vol] 3.8 mmol/L 3.3-5.1 [facility] RBC Auto (Bld) [#/Vol]Ordere d By: Marciano Weaver on 07-10-2024 RBC (Bld) [#/Vol] 4.71 10*6/uL 4.6-6.2 [facility] Random urine creatinine montse urement (mass/volume)Ordered By: Marciano Weaver on 07-10-2024 Creatinine Unsp time (U) [Mass/Vol] 273.00 mg/dL High 39.00-259.0 0 [facility] Screening total cholesterol/ high density lipoprotein (HDL) cholesterol ratioOrdered By: Marciano Weaver on 07-10-2024 Cholesterol.total/Robyn sterol in HDL [Mass ratio] 4.70 {ratio} [facility] Serum creatinine measurement (mass/volume)Ordered By: Marciano Weaver on 07-10-2024 Creatinine [Mass/Vol] 1.31 mg/dL High 0.70-1.20 [facility] Serum globulin measurementOr dered By: Marciano Weaver on 07-10-2024 Globulin (S) [Mass/Vol] 3.0 g/dL 2.2-4.2 [facility] Serum glucose measurement (m ass/volume)Ordered By: Marciano Weaver on 07-10-2024 Glucose [Mass/Vol] 162 mg/dL High 70-99 [facility] Serum or plasma alanine townsend otransferase (ALT) measurementOrdered By: Marciano Weaver on 07-10-2024 ALT [Catalytic activity/Vol] 13 U/L <47 [facility] Serum or plasma albumin montse urement (mass/volume)Ordered By: Marciano Weaver on 07-10-2024 Albumin [Mass/Vol] 4.0 g/dL 3.4-4.8 [facility] Serum or plasma albumin/glob ulin mass ratioOrdered By: Marciano Weaver on 07-10-2024 Albumin/Globulin [Mass ratio] 1.3 {ratio} 0.9-2.4 [facility] Serum or plasma alkaline ricky sphatase measurementOrdered By: Marciano Weaver on 07-10-2024 ALP [Catalytic activity/Vol] 68 U/L 40-129 [facility] Serum or plasma calcium montse urement (mass/volume)Ordered By: Marciano Weaver on 07-10-2024 Calcium [Mass/Vol] 9.0 mg/dL 7.6-11.0 [facility] Serum or plasma cholesterol in HDL measurement (mass/volume)Ordered By: Marciano Weaver on 07-10-2024 Cholesterol in HDL [Mass/Vol] 27 mg/dL Low >40 [facility] Comment on above: National Cholesterol Education Program (NCEP) guidelines:<40 mg/dL: Low HDL-cholesterol (major risk factor for CHD)>= 60 mg/dL: High HDL-cholesterol (negative risk factor for CHD)HDL-cholesterol is affected by a number of factors, e.g. smoking, exercise, hormones, sex and age. Serum or plasma cholesterol measurement (mass/volume)Ordered By: Marciano Weaver on 07-10-2024 Cholesterol [Mass/Vol] 127 mg/dL <201 [facility] Comment on above: Cholesterol level, D esirable <200 mg/dLBorderline high cholesterol 200-239 mg/dLHigh cholesterol >=240 mg/dLRecommendations of the NCEP Adult Treatment Panel for the following risk-cutoff thresholds for the [place] population. Serum or plasma urea nitroge n measurement (mass/volume)Ordered By: Marciano Weaver on 07-10-2024 Urea nitrogen [Mass/Vol] 14 mg/dL 4-19 [facility] Sodium levelOrdered By: Marciano Weaver on 07-10-2024 Sodium [Moles/Vol] 142 mmol/L 133-145 [facility] Total proteinOrdered By: Lila Weaver on 07-10-2024 Protein [Mass/Vol] 7.0 g/dL 5.9-8.4 [facility] Triglycerides measurementOrd ered By: Marciano Weaver on 07-10-2024 Triglyceride [Mass/Vol] 92 mg/dL <199 [facility] Comment on above: The drugs N-Acetylcy steine and Metamizole may falsely depress this assay. Normal range: <150 mg/dLBorderline High: 150-199 mg/dLHigh: 200-499 mg/dLVery High: >500 mg/dL Urine albumin measurement wi detection limit of 20 mg/L or less (mass/volume)Ordered By: Marciano Weaver on 07-10-2024 Albumin DL <= 20 mg/L (U) [Mass/Vol] 152.0 mg/L NO RANGE EST. [facility] White blood cell (WBC) count Ordered By: Marciano Weaver on 07-10-2024 WBC (Bld) [#/Vol] 7.5 10*3/uL 4.4-11.0 [facility] CNPNon 04-23-2024 CNPN Telephone (CARDMN) LC GRUBBS ([id number]) 1950 M Date Time Provider Department 04/23/24 WALI BRAVO During your visit today, we recorded the following information about you: Sol Duran 04/23/2024 9:18 AM Signed Received completed pacemaker form. Scanned in the system and the shared drive. Faxed to [phone] Sol Duarte, Jeremy Allergies As of Date: 04/23/2024 Noted Allergy Reaction AVELOX (MOXIFLOXACIN HCL) 04/17/2012 4 - Hives Date Reviewed: 11/06/2023 Reviewed by: Zulma Cronin LPN - Fully Assessed Reason for Visit: Forms [913] Prescriptions as of 04/23/2024 - iv contrast (will be provided with radiology test) CT ABD/PEL -Inject, intravenously, once for 1 dose.No IV access, insert saline lock prior to the beginning of sedation, infusion, injection of imaging exam. Discontinue saline lock post exam. If Pt. has a central line or IVAD, may access for administration according to line specific nursing protocol. Once exam is complete flush line and de-access according to line specific nursing protocol in the CT contrast administration guidelines link. - apixaban (ELIQUIS) 5 mg tab(s) Take 5 mg by mouth two times a day. - flash glucose scanning reader (Bolt HR CASSANDRA 2 READER) - metFORMIN ER (GLUCOPHAGE XR) 500 mg 24 hr tablet Take 3 tablets by mouth once daily. Patient may take 2 pills with breakfast and one with dinner - dulaglutide (TRULICITY) 1.5 mg/0.5 mL pen injector Inject 1.5 mg subcutaneously one time a week. - CPAP Please lower PAP to 15/11 cmH2O. Please send us 2 week download at new pressure. - Inhalational Spacing Device (BREATHERITE VALVED MDI SPACER) BREATHERITE VALVED MDI CHAMBER [employer] SUPPLIES [phone] Corinna London - CPAP Increase bilevel to 22/18 cmH2O with backup rate of 12 BPM. Also please refit patient's dreamwear FFM - the headgear/tubing is likely one size too small and thus pulling up on nose through the night. DME = [facility] - carvedilol (COREG) 6.25 mg tablet Take 3.125 mg by mouth twice daily with meals. - furosemide (LASIX) 20 mg tablet Take 20 mg by mouth once daily. - capsaicin (ZOSTRIX) 0.025 % cream Apply to affected area three times daily. - Cyanocobalamin 1,000 mcg subl Dissolve 1 tablet under the tongue once daily. - CPAP Please adjust bilevel to 17/13 cmH2O and turn off backup rate. Please provide download in 2-3 weeks. Please fit with dreamwear full face mask (under nose - med frame, large cushion). - ADVAIR DISKUS 500-50 mcg/dose dsdv INHALE ONE PUFF INTO THE LUNGS TWICE DAILY - potassium citrate ER (UROCIT-K) 5 mEq (540 mg) TbER Take 1 tablet by mouth once daily. - EASY TOUCH 31 gauge x 5/16 1 Each by INJECTION(UNSPECIFIED PARENTERAL ROUTES) route five times daily. - aspirin, enteric coated (ASPIRIN, ENTERIC COATED) 81 mg EC tablet Take 1 tablet by mouth once daily. - ascorbic acid, vitamin C, (VITAMIN C) 500 mg tablet Take 500 mg by mouth once daily. - Fluticasone Propionate (FLOVENT DISKUS) 100 mcg/actuation Inhale 1 Puff as instructed twice daily. After Advair - tamsulosin ER (FLOMAX) 0.4 mg Take 0.4 mg by mouth once daily. - albuterol HFA (PROVENTIL HFA, VENTOLIN HFA) 90 mcg/actuation inhaler Inhale 2 Puffs as instructed every 4 hours as needed for Wheezing/Shortness of Breath. - alpha lipoic acid 200 mg cap Take 200 mg by mouth once daily. - magnesium oxide 400 mg magnesium tab Take 400 mg by mouth twice daily. - CPAP Change bilevel setting to 20/15 cmH2O with BR 16 BPM. Please fax us download in 2 weeks. - buPROPion XL (WELLBUTRIN XL) 150 mg 24 hr tablet Take 150 mg by mouth once daily. - montelukast (SINGULAIR) 10 mg tablet Take 10 mg by mouth daily at bedtime. - atorvastatin (LIPITOR) 20 mg tablet Take 20 mg by mouth once daily. - multivitamin ORAL tablet Take one(1) tablet daily. Problem List As Of Date 04/23/2024 Noted Resolved Pain [R52] 03/23/2010 Elbow fracture [S42.409A] 04/14/2010 Type II or unspecified type diabetes mellitus w*06/14/2012 Morbid obesity (HCC) [E66.01] 06/14/2012 Encounter for dietary counseling and surveillan*06/14/2012 Cardiomyopathy (HCC) [I42.9] 06/14/2012 Anemia [D64.9] 06/27/2012 Implantable cardioverter-defibrill ator (ICD) in*01/31/2013 Intellectual disability [F79] 09/03/2013 Illiterate [Z55.0] 10/24/2013 Cholelithiasis [K80.20] 11/12/2013 NAFLD (nonalcoholic fatty liver disease) [K76.0]11/12/2013 OPENED IN ERROR [465440] 11/12/2013 Combined form of senile cataract of both eyes [*09/01/2015 Type 2 diabetes mellitus without retinopathy (H*09/01/2015 Vitreous floaters of both eyes [H43.393] 09/01/2015 Obstructive sleep apnea (adult) (pediatric) [G4*09/23/2016 Cataract, nuclear sclerotic senile [H25.10] 09/23/2016 Essential hypertension [I10] 09/23/2016 Cortical age-related cataract, bila (more content not included)... [facility] LC GRUBBS ([id number]) 1950 M Date Time Provider Department 02/21/24 LUCIE REYNOLDS During your visit today, we recorded the following information about you: Lucie Reynolds APRN.CNP 02/21/2024 4:33 PM Signed Actionable Finding Details: Exam: CT Abdomen/pelvis Date: 10/16/23 Findin enlarging spleen lesions Recommendation: CT or MRI Abdomen MyChart: Activated. ISABEL Outreach Attempt? Yes via uberall Message with no response. Routed to [facility] scheduling for phone call outreach attempt (1) and final notification per current protocol If any questions/concerns, please re-route to [facility] provider for review. Lucie Reynolds APRN.CNP Actionable Findings [facility] [phone] Allergies As of Date: 02/21/2024 Noted Allergy Reaction AVELOX (MOXIFLOXACIN HCL) 04/17/2012 4 - Hives Date Reviewed: 11/06/2023 Reviewed by: Zulma Cronin LPN - Fully Assessed Prescriptions as of 07/11/2024 - iv contrast (will be provided with radiology test) CT ABD/PEL -Inject, intravenously, once for 1 dose.No IV access, insert saline lock prior to the beginning of sedation, infusion, injection of imaging exam. Discontinue saline lock post exam. If Pt. has a central line or IVAD, may access for administration according to line specific nursing protocol. Once exam is complete flush line and de-access according to line specific nursing protocol in the CT contrast administration guidelines link. - apixaban (ELIQUIS) 5 mg tab(s) Take 5 mg by mouth two times a day. - flash glucose scanning reader (Bolt HR CASSANDRA 2 READER) - metFORMIN ER (GLUCOPHAGE XR) 500 mg 24 hr tablet Take 3 tablets by mouth once daily. Patient may take 2 pills with breakfast and one with dinner - dulaglutide (TRULICITY) 1.5 mg/0.5 mL pen injector Inject 1.5 mg subcutaneously one time a week. - CPAP Please lower PAP to 15/11 cmH2O. Please send us 2 week download at new pressure. - Inhalational Spacing Device (BREATHERITE VALVED MDI SPACER) BREATHERITE VALVED MDI CHAMBER [employer] SUPPLIES [phone] Corinna London - CPAP Increase bilevel to 22/18 cmH2O with backup rate of 12 BPM. Also please refit patient's dreamwear FFM - the headgear/tubing is likely one size too small and thus pulling up on nose through the night. DME = [facility] - carvedilol (COREG) 6.25 mg tablet Take 3.125 mg by mouth twice daily with meals. - furosemide (LASIX) 20 mg tablet Take 20 mg by mouth once daily. - capsaicin (ZOSTRIX) 0.025 % cream Apply to affected area three times daily. - Cyanocobalamin 1,000 mcg subl Dissolve 1 tablet under the tongue once daily. - CPAP Please adjust bilevel to 17/13 cmH2O and turn off backup rate. Please provide download in 2-3 weeks. Please fit with dreamwear full face mask (under nose - med frame, large cushion). - ADVAIR DISKUS 500-50 mcg/dose dsdv INHALE ONE PUFF INTO THE LUNGS TWICE DAILY - potassium citrate ER (UROCIT-K) 5 mEq (540 mg) TbER Take 1 tablet by mouth once daily. - EASY TOUCH 31 gauge x 5/16 1 Each by INJECTION(UNSPECIFIED PARENTERAL ROUTES) route five times daily. - aspirin, enteric coated (ASPIRIN, ENTERIC COATED) 81 mg EC tablet Take 1 tablet by mouth once daily. - ascorbic acid, vitamin C, (VITAMIN C) 500 mg tablet Take 500 mg by mouth once daily. - Fluticasone Propionate (FLOVENT DISKUS) 100 mcg/actuation Inhale 1 Puff as instructed twice daily. After Advair - tamsulosin ER (FLOMAX) 0.4 mg Take 0.4 mg by mouth once daily. - albuterol HFA (PROVENTIL HFA, VENTOLIN HFA) 90 mcg/actuation inhaler Inhale 2 Puffs as instructed every 4 hours as needed for Wheezing/Shortness of Breath. - alpha lipoic acid 200 mg cap Take 200 mg by mouth once daily. - magnesium oxide 400 mg magnesium tab Take 400 mg by mouth twice daily. - CPAP Change bilevel setting to 20/15 cmH2O with BR 16 BPM. Please fax us download in 2 weeks. - buPROPion XL (WELLBUTRIN XL) 150 mg 24 hr tablet Take 150 mg by mouth once daily. - montelukast (SINGULAIR) 10 mg tablet Take 10 mg by mouth daily at bedtime. - atorvastatin (LIPITOR) 20 mg tablet Take 20 mg by mouth once daily. - multivitamin ORAL tablet Take one(1) tablet daily. Problem List As Of Date 02/21/2024 Noted Resolved Pain [R52] 03/23/2010 Elbow fracture [S42.409A] 04/14/2010 Type II or unspecified type diabetes mellitus w*06/14/2012 Morbid obesity (HCC) [E66.01] 06/14/2012 Encounter for dietary counseling and surveillan*06/14/2012 Cardiomyopathy (HCC) [I42.9] 06/14/2012 Anemia [D64.9] 06/27/2012 Implantable cardioverter-defibrill ator (ICD) in*01/31/2013 Intellectual disability [F79] 09/03/2013 Illiterate [Z55.0] 10/24/2013 Cholelithiasis [K80.20] 11/12/2013 NAFLD (nonalcoholic fatty liver disease) [K76.0]11/12/2013 OPENED IN ERROR [768783] 11/12/2013 Combi (more content not included)... Normal [facility] CNOVon 01-10-2024 CNOV Office Visit (CARDMN ) LC GRUBBS ([id number]) 1950 M Date Time Provider Department 01/10/24 11:00 AM ARTURO COBOS CARDMN During your visit today, we recorded the following information about you: Blood pressure Weight Height 147/88 127 kg 1.753 m Arturo Cobos APRN.ENVIRONMENTAL SCIENCE TECHNICIAN 01/10/2024 12:35 PM [facility] Department of Cardiovascular Medicine SECTION OF CARDIAC PACING and ELECTROPHYSIOLOGY OUTPATIENT VISIT DATE January 10, 2024 OUTPATIENT VISIT TYPE ESTABLISHED PRIMARY CARE PHYSICIAN: Marciano Weaver (Hermelindo) [facility] [address] [place] [address] REFERRING PHYSICIAN: Dr. Wali Bravo To schedule an appointment please call [phone] Other questions or concerns please his office at [phone] CHIEF COMPLAINT: Persistent atrial fibrillation HISTORY OF PRESENT ILLNESS: Mr. Grubbs is a 73 year old male who presents today for follow-up visit pre cardioversion scheduled for later today. He is an established patient of Dr. Dominguez last seen on 10/02/2023. He had a PMH of asthma, atrial fibrillation (s/p cardioversion 2015; sotolol AND eliquis), CHF s/p INCINERATOR ATTENDANT-D 04/11/2011, VT, long QT, COPD, depression, nonobstructive CAD, HLD, HTN, obesity (BMI 45.5) status post gastric sleeve 2020 (lost ~100 lbs), diabetes and ARMANDO on CPAP. He had a cryo PVAI 06/30/2023. reports she was called and notified patient needed to come in for a DCC. He was found to be AFL with ventricular rates 140s bpm. He reports he PAST CARDIAC HISTORY: PAST MEDICAL HISTORY Diagnosis Date Asthma Atrial fibrillation (HCC) S/P successful cardioversion in 2015; maintained on Sotolol and Eliquis Cardiac defibrillator in place April 2011 CHF (congestive heart failure) (HCC) Class III Depression Diabetes mellitus (HCC) H/O bariatric surgery 08/2019 Hyperlipidemia Hypertension Kidney stone Morbid obesity (HCC) Non-ischemic cardiomyopathy (HCC) 2011 Biventricular pacing device/defibrillator placed; EF recovered to 65% in 2017 ARMANDO (obstructive sleep apnea) CPAP PAST SURGICAL HISTORY Procedure Laterality Date ABLATION A-FIB BY PVI 06/30/2023 CARDIAC CATH 07/2016 done for positive stress test; Mild CAD of LAD, Circumflex, and RCA; EF 40-45% CARDIOVERSION 2016 Successful cardioversion of atrial fibrillation COLONOSCOPY maybe 10 yrs ago DEFIBRILLATOR SURGERY 12/20/2018 EGD 09/03/2019 GASTRIC WALL TISSUE WITH MILD REACTIVE GASTROPATHY EGD EUS 01/07/2020 ELBOW 03/04/2014 reconstructed elbow LAP SLEEVE GASTRECTOMY 09/03/2019 hernia repair, lysis of adhesions and intraoperative EGD LIVER BIOPSY 07/01/2020 PACEMAKER IMPLANT april [address] [facility] PAST SURGICAL HISTORY OF 10/17/2023 ex lap, MEDARDO, UHR REMOVAL GALLBLADDER 11/2017 TONSILLECTOMY HX 1960's TOOTH EXTRACTION SOCIAL HISTORY Social History Tobacco Use Smoking status: Never Smokeless tobacco: Never Vaping Use Vaping status: Never Used Substance Use Topics Alcohol use: No Drug use: No FAMILY HISTORY Problem Relation Age of Onset Cancer Father lung Cancer Mother kidney, bone other (myocardial infarction) Sister Colon Cancer No Family History ALLERGIES: ALLERGIES Allergen Reactions Avelox [Moxifloxaci* Hives MEDICATIONS: apixaban (ELIQUIS) 5 mg tab(s) Take 5 mg by mouth two times a day. flash glucose scanning reader (FREESTYLE CASSANDRA 2 READER) metFORMIN ER (GLUCOPHAGE XR) 500 mg 24 hr tablet Take 3 tablets by mouth once daily. Patient may take 2 pills with breakfast and one with dinner dulaglutide (TRULICITY) 1.5 mg/0.5 mL pen injector Inject 1.5 mg subcutaneously one time a week. CPAP Please lower PAP to 15/11 cmH2O. Please send us 2 week download at new pressure. Inhalational Spacing Device (BREATHERITE VALVED MDI SPACER) BREATHERITE VALVED MDI CHAMBER [employer]ER[employer] SUPPLIES [phone] Corinna Jonatan Irwinkiersten CPAP Increase bilevel to 22/18 cmH2O with backup rate of 12 BPM. Also please refit patient's dreamwear FFM - the headgear/tubing is likely one size too small and thus pulling up on nose through the night. DME = [facility] carvedilol (COREG) 6.25 mg tablet Take 3.125 mg by mouth twice daily with meals. furosemide (LASIX) 20 mg tablet Take 20 mg by mouth once daily. capsaicin (ZOSTRIX) 0.025 % cream Apply to affected area three times daily. Cyanocobalamin 1,000 mcg subl Dissolve 1 tablet under the tongue once daily. CPAP Please adjust bilevel to 17/13 cmH2O and turn off backup rate. Please provide download in 2-3 weeks. Please fit with dreamwear full face mask (under nose - med frame, large cushion). ADVAIR DISKUS 500-50 mcg/dose dsdv INHALE ONE PUFF INTO THE LUNGS TWICE DAILY potassium citrate ER (UROCIT-K) 5 mEq (540 mg) TbE (more content not included)... Normal [facility] ECG COMPLETEon 01-10-2024 ECG COMPLETE Ventricular Rate : 8 2 BPM QRS Duration : 156 ms Q-T Interval : 466 ms QTC Calculation(Bazett) : 544 ms Calculated R Irving : 203 degrees Calculated T Irving : 29 degrees VENTRICULAR-PACED RHYTHM WITH OCCASIONAL PREMATURE VENTRICULAR COMPLEXES ABNORMAL ECG Confirmed by KATHRINE PAULSON MD ([id number]) on 02/27/2024 8:44:42 AM NAME : LC GRUBBS PID : [id number] : 1950 Gender : Male Race : ORD : [id number] Procedure Date : Jan 10 2024 11:23:37 Edit Date : Feb 27 2024 08:44:43 Diagnosis: VENTRICULAR-PACED RHYTHM WITH OCCASIONAL PREMATURE VENTRICULAR COMPLEXES ABNORMAL ECG Confirmed by KATHRINE PAULSON MD ([id number]) on 02/27/2024 8:44:42 AM Test Reason : BP Location : 314 : J14 J14 Overread By : KATHRINE PAULSON MD Edited By : KATHRINE PAULSON MD Referred By : WALI BRAVO Acquired by : YOSHI LIND [facility] Surgery Visit Reporton 12-31 Surgery Visit Report [facility] [address] [place], [place] [address] OFFICE VISIT Date of Service: 12/29/23 MR#: [id number] Acct: [id number] Name: LC GRUBBS Rep #: [id number] : 1950 Provider: Dr. Juju vick MD Age/Sex: 73/M Location: [facility] Status: Signed Intake Vital Signs 12/29/23 14:29 Height 5 ft 9 in Weight: 280 lb BMI 41.3 BP 154/90 H Blood Pressure Location Rt brachial Position Sitting Respiration 17 Pulse 74 Pulse Source Monitor Pulse Oximetry (%) 95 Oxygen Delivery Method room air Intake Visit Reasons: COLONOSCOPY Chief Complaint: colonoscopy Allergies moxifloxacin HCl (From Avelox) Allergy (Verified 12/29/23 14:30) Hives Have you fallen in the past year?: No PFSH Medical History (Updated 12/29/23 @ 14:29 by Belgica Bear) Rectal bleeding Vitamin D deficiency History of nephrolithiasis Osteoarthritis Hyperlipidemia Atherosclerosis of coronary artery of [place] heart without angina pectoris Stage 2 moderate COPD by GOLD classification Diabetes type 2, controlled Asthma ARMANDO (obstructive sleep apnea) Cardiomyopathy, idiopathic HTN (hypertension), benign Persistent atrial fibrillation Surgical History (Updated 01/01/24 @ 11:[address] Juju Winston MD) H/O ventral hernia repair History of gastric bypass History of cardioversion (01/16/19) Hx of cholecystectomy (11/22/17) H/O oral surgery History of lithotripsy Presence of biventricular implantable cardioverter-defibrill ator (ICD) Family History Father Cancer Lung CA Mother Cancer Sister Myocardial infarction Diabetes Heart disease Uncle CAD (coronary artery disease) Social History Smoking Status: Never smoker alcohol intake: never substance use type: does not use caffeine: No what type of physical activity do you participate in: none seatbelt use: always do you feel safe at home: Yes HPI HPI HPI: 73-year-old male presents due to history of colon polyps for colonoscopy. Patient last colonoscopy was in March 2019 he had a tubular adenoma as well as a hyperplastic polyp at that time. Patient states he has bowel moods about every other day denies any blood. Patient denies any abdominal pain/nausea/vomiting. Patient did admit to having some blurred at night may be once a week. Patient did have the gastric sleeve and lost about 200 pounds from that. Earlier this year patient did have an incarcerated hernia repair without mesh per patient. Patient is on Eliquis long-term for A-fib. ROS General General: Yes weight change Skin Skin: No rash Gastro Gastrointestinal: No abdominal pain, No nausea or vomiting, No diarrhea, No constipation and Yes acid reflux Exam Const General: cooperative, healthy appearing, comfortable and no acute distress HENMT Head: normocephalic and atraumatic Neck Neck: supple Resp Effort Inspection: normal respiratory effort Cardio Rate: regular rate GI Inspection: non-distended Palpation: soft and nontender Other: Well-healed midline incision Skin General: no rashes or lesions noted Neuro General: CN's II-XI intact bilaterally Extrem General: normal to inspection Psych Mental Status: mental status grossly normal Attitude: cooperative Assessment and Plan Assessment and Plan (1) Encounter for colonoscopy due to history of colonic polyp: Status: Acute Plan Will have patient hold his Eliquis x 3 days and he can continue his aspirin. I have discussed the above with the patient. I have offered the patient colonoscopy for evaluation. I have explained the risks/benefits of the procedure and described the procedure. I have discussed the risks with the patient, including but not limited to: infection, bleeding, perforation of the GI tract requiring emergency surgery, inability to complete the procedure, injury to any internal organs, complications of anesthesia, etc. - the patient understands and agrees to proceed. I have answered all the patient's questions to the patient's satisfaction and the patient has no further questions. The patient has been given instructions for the colon cleansing preparation. 1 day clears MiraLAX Dulcolax prep. Juju Winston M.D. Pager: [phone] [facility] [address] [place] [address], [facility], [address] [place] [address] Office: [phone] Plan Details Goals Barriers: Goals Decrease spasm Improve ROM Decrease pain Barriers DDD Obesity Compression fx L3 Coding Level of Care Code Off vis,new,level 3 Diagnoses Encounter for colonoscopy due to history of colonic polyp Z12.11; Z86.0100 Clinical Quality Measures (more content not included)... Normal [facility] 2023 CNPN Telephone (EPSMN) KAYCEELC Moreno ([id number]) 1950 M Date Time Provider Department 12/12/23 WALI BRAVO [facility] During your visit today, we recorded the following information about you: Misa Freitas RN 2023 6:11 AM Signed ----- Message from Wali Bravo MD sent at 12/08/2023 7:00 PM EDT ----- EPS LAB PROCEDURE REQUEST: Cardioversion AND/or DANNY PATIENT: KayceeLc moreno Request Placed by: Wali Bravo MD Requesting Physician: Wali Bravo MD Procedure Physician: 1st available Date of Last HANDP? 10/02/23 Procedure Requested: DCC Indications / Dx for procedure: Atrial Tachycardia Anticoagulation Status: Eliquis (apixaban) Type of bed needed: 2 HR RECOVERY IN I/O ROOM DCCV please. Tx. Wali Bravo MD December 08, 2023 7:01 PM Misa Freitas RN 2023 6:11 AM Signed Please call patient to schedule for EKG AND OPD so that we may schedule for DCC the same day. Misa Freitas RN 12/13/2023 2:29 PM Signed OPD noted to be scheduled for 01-10-24. Scheduled for DCC as well. Allergies As of Date: 2023 Noted Allergy Reaction AVELOX (MOXIFLOXACIN HCL) 04/17/2012 4 - Hives Date Reviewed: 11/06/2023 Reviewed by: Zulma Cronin LPN - Fully Assessed Reason for Visit: Future Appointment [256] Cmt: [facility] Prescriptions as of 12/13/2023 - apixaban (ELIQUIS) 5 mg tab(s) Take 5 mg by mouth two times a day. - flash glucose scanning reader (FREESTYLE CASSANDRA 2 READER) - metFORMIN ER (GLUCOPHAGE XR) 500 mg 24 hr tablet Take 3 tablets by mouth once daily. Patient may take 2 pills with breakfast and one with dinner - dulaglutide (TRULICITY) 1.5 mg/0.5 mL pen injector Inject 1.5 mg subcutaneously one time a week. - CPAP Please lower PAP to 15/11 cmH2O. Please send us 2 week download at new pressure. - Inhalational Spacing Device (BREATHERITE VALVED MDI SPACER) BREATHERITE VALVED MDI CHAMBER [employer]ER[employer] SUPPLIES [phone] Corinna London - CPAP Increase bilevel to 22/18 cmH2O with backup rate of 12 BPM. Also please refit patient's dreamwear FFM - the headgear/tubing is likely one size too small and thus pulling up on nose through the night. DME = [facility] - carvedilol (COREG) 6.25 mg tablet Take 3.125 mg by mouth twice daily with meals. - furosemide (LASIX) 20 mg tablet Take 20 mg by mouth once daily. - capsaicin (ZOSTRIX) 0.025 % cream Apply to affected area three times daily. - Cyanocobalamin 1,000 mcg subl Dissolve 1 tablet under the tongue once daily. - CPAP Please adjust bilevel to 17/13 cmH2O and turn off backup rate. Please provide download in 2-3 weeks. Please fit with Minimus Spinewear full face mask (under nose - med frame, large cushion). - ADVAIR DISKUS 500-50 mcg/dose dsdv INHALE ONE PUFF INTO THE LUNGS TWICE DAILY - potassium citrate ER (UROCIT-K) 5 mEq (540 mg) TbER Take 1 tablet by mouth once daily. - EASY TOUCH 31 gauge x 5/16 1 Each by INJECTION(UNSPECIFIED PARENTERAL ROUTES) route five times daily. - aspirin, enteric coated (ASPIRIN, ENTERIC COATED) 81 mg EC tablet Take 1 tablet by mouth once daily. - ascorbic acid, vitamin C, (VITAMIN C) 500 mg tablet Take 500 mg by mouth once daily. - Fluticasone Propionate (FLOVENT DISKUS) 100 mcg/actuation Inhale 1 Puff as instructed twice daily. After Advair - tamsulosin ER (FLOMAX) 0.4 mg Take 0.4 mg by mouth once daily. - albuterol HFA (PROVENTIL HFA, VENTOLIN HFA) 90 mcg/actuation inhaler Inhale 2 Puffs as instructed every 4 hours as needed for Wheezing/Shortness of Breath. - alpha lipoic acid 200 mg cap Take 200 mg by mouth once daily. - magnesium oxide 400 mg magnesium tab Take 400 mg by mouth twice daily. - CPAP Change bilevel setting to 20/15 cmH2O with BR 16 BPM. Please fax us download in 2 weeks. - buPROPion XL (WELLBUTRIN XL) 150 mg 24 hr tablet Take 150 mg by mouth once daily. - montelukast (SINGULAIR) 10 mg tablet Take 10 mg by mouth daily at bedtime. - atorvastatin (LIPITOR) 20 mg tablet Take 20 mg by mouth once daily. - multivitamin ORAL tablet Take one(1) tablet daily. Problem List As Of Date 2023 Noted Resolved Pain [R52] 03/23/2010 Elbow fracture [S42.409A] 04/14/2010 Type II or unspecified type diabetes mellitus w*06/14/2012 Morbid obesity (HCC) [E66.01] 06/14/2012 Encounter for dietary counseling and surveillan*06/14/2012 Cardiomyopathy (HCC) [I42.9] 06/14/2012 Anemia [D64.9] 06/27/2012 Implantable cardioverter-defibrill ator (ICD) in*01/31/2013 Intellectual disability [F79] 09/03/2013 Illiterate [Z55.0] 10/24/2013 Cholelithiasis [K80.20] 11/12/2013 NAFLD (nonalcoholic fatty liver disease) [K76.0]11/12/2013 OPENED IN ERROR [726800] 11/12/2013 Combined form of senile cataract of both eyes [*09/01/2015 Type 2 diabetes mellitus without retinopathy (H*09/01/2015 Vitreous floaters of both e (more content not included)... Normal [facility] ROMIELC ([id number]) 1950 M Date Time Provider Department 11/30/23 WALI BRAVO During your visit today, we recorded the following information about you: Suzie Blackwell RN 11/30/2023 10:46 AM Signed Attempted to speak with patient regarding AFL reoccurrence. Left VM, requested he send a manual transmission early next week for re-assessment. Allergies As of Date: 11/30/2023 Noted Allergy Reaction AVELOX (MOXIFLOXACIN HCL) 04/17/2012 4 - Hives Date Reviewed: 11/06/2023 Reviewed by: Zulma Cronin LPN - Fully Assessed Prescriptions as of 11/30/2023 - apixaban (ELIQUIS) 5 mg tab(s) Take 5 mg by mouth two times a day. - flash glucose scanning reader (Bolt HR CASSANDRA 2 READER) - metFORMIN ER (GLUCOPHAGE XR) 500 mg 24 hr tablet Take 3 tablets by mouth once daily. Patient may take 2 pills with breakfast and one with dinner - dulaglutide (TRULICITY) 1.5 mg/0.5 mL pen injector Inject 1.5 mg subcutaneously one time a week. - CPAP Please lower PAP to 15/11 cmH2O. Please send us 2 week download at new pressure. - Inhalational Spacing Device (BREATHERITE VALVED MDI SPACER) BREATHERITE VALVED MDI CHAMBER [employer]NAMI[employer]ER[employer] SUPPLIES [id number] Corinna London - CPAP Increase bilevel to 22/18 cmH2O with backup rate of 12 BPM. Also please refit patient's dreamwear FFM - the headgear/tubing is likely one size too small and thus pulling up on nose through the night. DME = [facility] - carvedilol (COREG) 6.25 mg tablet Take 3.125 mg by mouth twice daily with meals. - furosemide (LASIX) 20 mg tablet Take 20 mg by mouth once daily. - capsaicin (ZOSTRIX) 0.025 % cream Apply to affected area three times daily. - Cyanocobalamin 1,000 mcg subl Dissolve 1 tablet under the tongue once daily. - CPAP Please adjust bilevel to 17/13 cmH2O and turn off backup rate. Please provide download in 2-3 weeks. Please fit with dreamwear full face mask (under nose - med frame, large cushion). - ADVAIR DISKUS 500-50 mcg/dose dsdv INHALE ONE PUFF INTO THE LUNGS TWICE DAILY - potassium citrate ER (UROCIT-K) 5 mEq (540 mg) TbER Take 1 tablet by mouth once daily. - EASY TOUCH 31 gauge x 5/16 1 Each by INJECTION(UNSPECIFIED PARENTERAL ROUTES) route five times daily. - aspirin, enteric coated (ASPIRIN, ENTERIC COATED) 81 mg EC tablet Take 1 tablet by mouth once daily. - ascorbic acid, vitamin C, (VITAMIN C) 500 mg tablet Take 500 mg by mouth once daily. - Fluticasone Propionate (FLOVENT DISKUS) 100 mcg/actuation Inhale 1 Puff as instructed twice daily. After Advair - tamsulosin ER (FLOMAX) 0.4 mg Take 0.4 mg by mouth once daily. - albuterol HFA (PROVENTIL HFA, VENTOLIN HFA) 90 mcg/actuation inhaler Inhale 2 Puffs as instructed every 4 hours as needed for Wheezing/Shortness of Breath. - alpha lipoic acid 200 mg cap Take 200 mg by mouth once daily. - magnesium oxide 400 mg magnesium tab Take 400 mg by mouth twice daily. - CPAP Change bilevel setting to 20/15 cmH2O with BR 16 BPM. Please fax us download in 2 weeks. - buPROPion XL (WELLBUTRIN XL) 150 mg 24 hr tablet Take 150 mg by mouth once daily. - montelukast (SINGULAIR) 10 mg tablet Take 10 mg by mouth daily at bedtime. - atorvastatin (LIPITOR) 20 mg tablet Take 20 mg by mouth once daily. - multivitamin ORAL tablet Take one(1) tablet daily. Problem List As Of Date 11/30/2023 Noted Resolved Pain [R52] 03/23/2010 Elbow fracture [S42.409A] 04/14/2010 Type II or unspecified type diabetes mellitus w*06/14/2012 Morbid obesity (HCC) [E66.01] 06/14/2012 Encounter for dietary counseling and surveillan*06/14/2012 Cardiomyopathy (HCC) [I42.9] 06/14/2012 Anemia [D64.9] 06/27/2012 Implantable cardioverter-defibrill ator (ICD) in*01/31/2013 Intellectual disability [F79] 09/03/2013 Illiterate [Z55.0] 10/24/2013 Cholelithiasis [K80.20] 11/12/2013 NAFLD (nonalcoholic fatty liver disease) [K76.0]11/12/2013 OPENED IN ERROR [208343] 11/12/2013 Combined form of senile cataract of both eyes [*09/01/2015 Type 2 diabetes mellitus without retinopathy (H*09/01/2015 Vitreous floaters of both eyes [H43.393] 09/01/2015 Obstructive sleep apnea (adult) (pediatric) [G4*09/23/2016 Cataract, nuclear sclerotic senile [H25.10] 09/23/2016 Essential hypertension [I10] 09/23/2016 Cortical age-related cataract, bilateral [H25.0*09/07/2017 Obesity [E66.9] 09/03/2019 Acute respiratory insufficiency, postoperative *09/04/2019 Thrombocytopenia (HCC) [D69.6] 09/04/2019 Acute blood loss as cause of postoperative anem*09/04/2019 Hypophosphatemia [E83.39] 09/05/2019 Central sleep apnea [G47.31] 03/16/2020 S/P gastric sleeve procedure [Z90.3] 07/30/2021 Incarcerated ventral hernia [K43.6] 10/17/2023 Encounter Status:Closed by SUZIE BLACKWELL on 11/30/23 [facility] 11-15-2023 TABBYN Telephone (CAEPMN) LC GRUBBS ([id number]) 1950 M Date Time Provider Department 11/15/23 YVONNETOY WALI PIERRE During your visit today, we recorded the following information about you: Noreen Nano LIRA 11/15/2023 2:53 PM Signed Pt have questions regarding remote enrollment, pt states [facility] is receiving transmissions. Pt can be reached at [phone] Reji Scott RN 11/15/2023 3:39 PM Signed Called and answered patient's questions Allergies As of Date: 11/15/2023 Noted Allergy Reaction AVELOX (MOXIFLOXACIN HCL) 04/17/2012 4 - Hives Date Reviewed: 11/06/2023 Reviewed by: Zulma Cronin LPN - Fully Assessed Prescriptions as of 11/15/2023 - apixaban (ELIQUIS) 5 mg tab(s) Take 5 mg by mouth two times a day. - flash glucose scanning reader (Bolt HR CASSANDRA 2 READER) - metFORMIN ER (GLUCOPHAGE XR) 500 mg 24 hr tablet Take 3 tablets by mouth once daily. Patient may take 2 pills with breakfast and one with dinner - dulaglutide (TRULICITY) 1.5 mg/0.5 mL pen injector Inject 1.5 mg subcutaneously one time a week. - CPAP Please lower PAP to 15/11 cmH2O. Please send us 2 week download at new pressure. - Inhalational Spacing Device (BREATHERITE VALVED MDI SPACER) BREATHERITE VALVED MDI CHAMBER [employer]ER[employer] SUPPLIES [phone] Corinna London - CPAP Increase bilevel to 22/18 cmH2O with backup rate of 12 BPM. Also please refit patient's dreamwear FFM - the headgear/tubing is likely one size too small and thus pulling up on nose through the night. DME = [facility] - carvedilol (COREG) 6.25 mg tablet Take 3.125 mg by mouth twice daily with meals. - furosemide (LASIX) 20 mg tablet Take 20 mg by mouth once daily. - capsaicin (ZOSTRIX) 0.025 % cream Apply to affected area three times daily. - Cyanocobalamin 1,000 mcg subl Dissolve 1 tablet under the tongue once daily. - CPAP Please adjust bilevel to 17/13 cmH2O and turn off backup rate. Please provide download in 2-3 weeks. Please fit with dreamwear full face mask (under nose - med frame, large cushion). - ADVAIR DISKUS 500-50 mcg/dose dsdv INHALE ONE PUFF INTO THE LUNGS TWICE DAILY - potassium citrate ER (UROCIT-K) 5 mEq (540 mg) TbER Take 1 tablet by mouth once daily. - EASY TOUCH 31 gauge x 5/16 1 Each by INJECTION(UNSPECIFIED PARENTERAL ROUTES) route five times daily. - aspirin, enteric coated (ASPIRIN, ENTERIC COATED) 81 mg EC tablet Take 1 tablet by mouth once daily. - ascorbic acid, vitamin C, (VITAMIN C) 500 mg tablet Take 500 mg by mouth once daily. - Fluticasone Propionate (FLOVENT DISKUS) 100 mcg/actuation Inhale 1 Puff as instructed twice daily. After Advair - tamsulosin ER (FLOMAX) 0.4 mg Take 0.4 mg by mouth once daily. - albuterol HFA (PROVENTIL HFA, VENTOLIN HFA) 90 mcg/actuation inhaler Inhale 2 Puffs as instructed every 4 hours as needed for Wheezing/Shortness of Breath. - alpha lipoic acid 200 mg cap Take 200 mg by mouth once daily. - magnesium oxide 400 mg magnesium tab Take 400 mg by mouth twice daily. - CPAP Change bilevel setting to 20/15 cmH2O with BR 16 BPM. Please fax us download in 2 weeks. - buPROPion XL (WELLBUTRIN XL) 150 mg 24 hr tablet Take 150 mg by mouth once daily. - montelukast (SINGULAIR) 10 mg tablet Take 10 mg by mouth daily at bedtime. - atorvastatin (LIPITOR) 20 mg tablet Take 20 mg by mouth once daily. - multivitamin ORAL tablet Take one(1) tablet daily. Problem List As Of Date 11/15/2023 Noted Resolved Pain [R52] 03/23/2010 Elbow fracture [S42.409A] 04/14/2010 Type II or unspecified type diabetes mellitus w*06/14/2012 Morbid obesity (HCC) [E66.01] 06/14/2012 Encounter for dietary counseling and surveillan*06/14/2012 Cardiomyopathy (HCC) [I42.9] 06/14/2012 Anemia [D64.9] 06/27/2012 Implantable cardioverter-defibrill ator (ICD) in*01/31/2013 Intellectual disability [F79] 09/03/2013 Illiterate [Z55.0] 10/24/2013 Cholelithiasis [K80.20] 11/12/2013 NAFLD (nonalcoholic fatty liver disease) [K76.0]11/12/2013 OPENED IN ERROR [776694] 11/12/2013 Combined form of senile cataract of both eyes [*09/01/2015 Type 2 diabetes mellitus without retinopathy (H*09/01/2015 Vitreous floaters of both eyes [H43.393] 09/01/2015 Obstructive sleep apnea (adult) (pediatric) [G4*09/23/2016 Cataract, nuclear sclerotic senile [H25.10] 09/23/2016 Essential hypertension [I10] 09/23/2016 Cortical age-related cataract, bilateral [H25.0*09/07/2017 Obesity [E66.9] 09/03/2019 Acute respiratory insufficiency, postoperative *09/04/2019 Thrombocytopenia (HCC) [D69.6] 09/04/2019 Acute blood loss as cause of postoperative anem*09/04/2019 Hypophosphatemia [E83.39] 09/05/2019 Central sleep apnea [G47.31] 03/16/2020 S/P gastric sleeve procedure [Z90.3] 07/30/2021 Incarcerated ventral hernia [K43.6] 10/17/2023 Encounte (more content not included)... Normal [facility] CNOVon 11-06-2023 CNOV Office Visit (AGGENS 3) LC GRUBBS ([id number]) 1950 M Date Time Provider Department 11/06/23 2:00 PM [facility] [id number] During your visit today, we recorded the following information about you: Pulse Respiration Blood pressure Weight 69/minute 20/minute 114/70 122.5 kg Height 1.753 m Zeferino Thorpe APRN.ENVIRONMENTAL SCIENCE TECHNICIAN, DNP 11/06/2023 4:52 PM Signed Patient referred by: No referring provider defined for this encounter. No chief complaint on file. HPI: This is a post operative visit. Mr. Grubbs is s/p exploratory laparotomy, ventral hernia repair, and omentectomy on 10/[address] Joyce for incarcerated ventral hernia. He was discharged home on POD 2. Mr. Grubbs is recovering well at home. Initial pain which has resolved. Tolerating regular diet. Bowel movements at his normal. Ambulating. Denies nausea, vomiting, shortness of breath, CP, fever or chills PAST MEDICAL HISTORY Diagnosis Date Asthma Atrial fibrillation (HCC) S/P successful cardioversion in 2015; maintained on Sotolol and Eliquis Cardiac defibrillator in place April 2011 CHF (congestive heart failure) (HCC) Class III Depression Diabetes mellitus (HCC) H/O bariatric surgery 08/2019 Hyperlipidemia Hypertension Kidney stone Morbid obesity (HCC) Non-ischemic cardiomyopathy (HCC) 2011 Biventricular pacing device/defibrillator placed; EF recovered to 65% in 2017 ARMANDO (obstructive sleep apnea) CPAP PAST SURGICAL HISTORY Procedure Laterality Date ABLATION A-FIB BY PVI 06/30/2023 CARDIAC CATH 07/2016 done for positive stress test; Mild CAD of LAD, Circumflex, and RCA; EF 40-45% CARDIOVERSION 2016 Successful cardioversion of atrial fibrillation COLONOSCOPY maybe 10 yrs ago DEFIBRILLATOR SURGERY 12/20/2018 EGD 09/03/2019 GASTRIC WALL TISSUE WITH MILD REACTIVE GASTROPATHY EGD EUS 01/07/2020 ELBOW 03/04/2014 reconstructed elbow LAP SLEEVE GASTRECTOMY 09/03/2019 hernia repair, lysis of adhesions and intraoperative EGD LIVER BIOPSY 07/01/2020 PACEMAKER IMPLANT april [address] [facility] REMOVAL GALLBLADDER 11/2017 TONSILLECTOMY HX 1960's TOOTH EXTRACTION FAMILY HISTORY Problem Relation Age of Onset Cancer Father lung Cancer Mother kidney, bone other (myocardial infarction) Sister Colon Cancer No Family History Social History Tobacco Use Smoking status: Never Smokeless tobacco: Never Vaping Use Vaping status: Never Used Substance Use Topics Alcohol use: No Drug use: No Current Outpatient Medications Medication Sig apixaban (ELIQUIS) 5 mg tab(s) Take 5 mg by mouth two times a day. flash glucose scanning reader (FREESTYLE CASSANDRA 2 READER) metFORMIN ER (GLUCOPHAGE XR) 500 mg 24 hr tablet Take 3 tablets by mouth once daily. Patient may take 2 pills with breakfast and one with dinner dulaglutide (TRULICITY) 1.5 mg/0.5 mL pen injector Inject 1.5 mg subcutaneously one time a week. CPAP Please lower PAP to 15/11 cmH2O. Please send us 2 week download at new pressure. Inhalational Spacing Device (BREATHERITE VALVED MDI SPACER) BREATHERITE VALVED MDI CHAMBER ANAMIKA RESPIRATORY THERAPY SUPPLIES [phone] Corinna London CPAP Increase bilevel to 22/18 cmH2O with backup rate of 12 BPM. Also please refit patient's dreamwear FFM - the headgear/tubing is likely one size too small and thus pulling up on nose through the night. DME = [facility] carvedilol (COREG) 6.25 mg tablet Take 3.125 mg by mouth twice daily with meals. furosemide (LASIX) 20 mg tablet Take 20 mg by mouth once daily. capsaicin (ZOSTRIX) 0.025 % cream Apply to affected area three times daily. Cyanocobalamin 1,000 mcg subl Dissolve 1 tablet under the tongue once daily. CPAP Please adjust bilevel to 17/13 cmH2O and turn off backup rate. Please provide download in 2-3 weeks. Please fit with Minimus Spinewear full face mask (under nose - med frame, large cushion). ADVAIR DISKUS 500-50 mcg/dose dsdv INHALE ONE PUFF INTO THE LUNGS TWICE DAILY potassium citrate ER (UROCIT-K) 5 mEq (540 mg) TbER Take 1 tablet by mouth once daily. EASY TOUCH 31 gauge x 5/16 1 Each by INJECTION(UNSPECIFIED PARENTERAL ROUTES) route five times daily. aspirin, enteric coated (ASPIRIN, ENTERIC COATED) 81 mg EC tablet Take 1 tablet by mouth once daily. ascorbic acid, vitamin C, (VITAMIN C) 500 mg tablet Take 500 mg by mouth once daily. Fluticasone Propionate (FLOVENT DISKUS) 100 mcg/actuation Inhale 1 Puff as instructed twice daily. After Advair tamsulosin ER (FLOMAX) 0.4 mg Take 0.4 mg by mouth once daily. albuterol HFA (PROVENTIL HFA, VENTOLIN HFA) 90 mcg/actuation inhaler Inhale 2 Puffs as instructed every 4 hours as needed for Wheezing/Shortness of Breath. alpha lipoic acid 200 mg cap Take 200 mg by mouth once daily. magnesium oxide 400 mg magnesium tab Take 400 mg by mouth twice daily. CPAP (more content not included)... Normal [facility] ANES POSTPROC EVALon 024 ANES POSTPROC EVAL HNO ID: [id number] Author: HEMALATHA WETZEL MD Service: Anesthesiology Author Type: Anesthesiologist Type: Anesthesia Postprocedure Evaluation Filed: 10/18/2023 09:38 Note Text: POST ANESTHESIA EVALUATION NOTE : 1950 Procedure Summary Date: 10/17/23 Room / Location: [address] OR Anesthesia Start: 733 Anesthesia Stop: 927 Procedure: EXPLORATORY LAPAROTOMY with ventral hernia repair (Abdomen) Diagnosis: Incarcerated ventral hernia (Incarcerated ventral hernia [K43.6]) Surgeons: Mynor Joyce MD Responsible Provider: Hemalatha Wetzel MD Anesthesia Type: general ASA Status: 4 - Emergent Anesthesia Type: general Airway Type: ETT Last Vitals Vitals Value Taken Time BP 124/71 10/17/23 1300 Temp 36.2 ?C (97.2 ?F) 10/17/23 1130 HR SpO2 80 10/17/23 1314 Resp 16 10/17/23 1314 SpO2 97 % 10/17/23 1314 Vitals shown include unfiled device data. Post Anesthesia Patient Status Patient Evaluation: PACU. PACU/ICU Patient Condition: stable. Anticipated Disposition: inpatient floor planned admission. Neurological Status: aware and responsive. Pulmonary Status: breathing comfortably on supplemental oxygen Airway Control: returned to baseline unsupported. Cardiovascular Status: stable. Pain Management: clinically adequate Postoperative Hydration: acceptable. Intraoperative Events: no significant anesthesia events Post Operative Nausea/Vomiting Status: no significant post operative nausea or vomiting Recommendation: continue current plan of care. Anesthesia Observations No Documentation SIGNATURE: Hemalatha Wetzel MD PATIENT NAME: Lc Grubbs DATE: October 18, 2023 TIME: 9:37 AM CSN: [id number] Normal [facility] Basic metabolic 2000 panelon 10-18-2023 Anion gap [Moles/Vol] 8 mmol/L Normal 8-15 [facility] Comment on above: Order Comment: Speci men Type: BLOOD SPECIMENOrdering Facility: [facility] Address: [address] [place] [address] Performed By: #### 2 4321-2 ####[facility] LABORATORYCLIA [id number] [place] [address] [place] Calcium [Mass/Vol] 8.7 mg/dL Normal 8.5-10.2 [facility] Comment on above: Order Comment: Speci men Type: BLOOD SPECIMENOrdering Facility: [facility] Address: [address] [place] [address] Performed By: #### 2 4321-2 ####[facility] LABORATORYCLIA [id number] [place] [address] [place] Chloride [Moles/Vol] 103 mmol/L Normal 98-107 [facility] Comment on above: Order Comment: Speci men Type: BLOOD SPECIMENOrdering Facility: [facility] Address: [address] [place] [address] Performed By: #### 2 4321-2 ####[facility] LABORATORYCLIA [id number] [place] [address] [place] CO2 [Moles/Vol] 25 mmol/L Normal 22-30 [facility] Comment on above: Order Comment: Speci men Type: BLOOD SPECIMENOrdering Facility: [facility] Address: [address] [place] [address] Performed By: #### 2 4321-2 ####[facility] LABORATORYCLIA [id number] [place] [address] [place] Creatinine [Mass/Vol] 1.29 mg/dL High 0.73-1.22 [facility] Comment on above: Order Comment: Speci men Type: BLOOD SPECIMENOrdering Facility: [facility] Address: [address] [place] [address] Performed By: #### 2 4321-2 ####[facility] LABORATORYCLIA [id number] [place] [address] [place] Creatinine and Glomerular filtration rate.predicted panel (S/P/Bld) 59 mL/min/1.73m??? Low >=60 [facility] Comment on above: Order Comment: Nikki hankins Type: BLOOD SPECIMENOrdering Facility: [facility] Address: [address] [place] [address] Result Comment: Caitlin mated Glomerular Filtration Rate (eGFR) is calculated using the 2020 CKD-EPI creatinine equation. This equation utilizes serum creatinine, sex, and age as parameters. The creatinine assay has traceable calibration to isotope dilution-mass spectrometry. Refer to KDIGO guidelines for clinical interpretation. In patients with unstable renal function, e.g. those with acute kidney injury, the eGFR may not accurately reflect actual GFR. Performed By: #### 2 4321-2 ####[facility] LABORATORYCLIA [id number] [place] [address] [place] Glucose [Mass/Vol] 138 mg/dL High 74-99 [facility] Comment on above: Order Comment: Nikki hankins Type: BLOOD SPECIMENOrdering Facility: [facility] Address: [address] [place] [address] Result Comment: The [place] Diabetes Association (ADA) provides guidance for cutoff values for fasting glucose and random glucose. The ADA defines fasting as no caloric intake for at least 8 hours. Fasting plasma glucose results between 100 to 125 mg/dL indicate increased risk for diabetes (prediabetes). Fasting plasma glucose results greater than or equal to 126 mg/dL meet the criteria for diagnosis of diabetes. In the absence of unequivocal hyperglycemia, results should be confirmed by repeat testing. In a patient with classic symptoms of hyperglycemia or hyperglycemic crisis, random plasma glucose results greater than or equal to 200 mg/dL meet the criteria for diagnosis of diabetes. Reference: Standards of Medical Care in Diabetes 2016, [place] Diabetes Association. Diabetes Care. 2016.39(Suppl 1). Performed By: #### 2 4321-2 ####[facility] LABORATORYCLIA [id number] [place] [id number] [place] Potassium [Moles/Vol] 4.0 mmol/L Normal 3.7-5.1 [facility] Comment on above: Order Comment: Speci men Type: BLOOD SPECIMENOrdering Facility: [facility] Address: [address] [place] [address] Performed By: #### 2 4321-2 ####[facility] LABORATORYCLIA [id number] [address] STATES OF [facility] Sodium [Moles/Vol] 136 mmol/L Normal 136-144 [facility] Comment on above: Order Comment: Speci men Type: BLOOD SPECIMENOrdering Facility: [facility] Address: [address] [place] [address] Performed By: #### 2 4321-2 ####[facility] LABORATORYCLIA [id number] [address] STATES [facility] Urea nitrogen [Mass/Vol] 23 mg/dL Normal 9-24 [facility] Comment on above: Order Comment: Speci men Type: BLOOD SPECIMENOrdering Facility: [facility] Address: [address] [place] [address] Performed By: #### 2 4321-2 ####[facility] LABORATORYCLIA [id number] [address] CBC panel Auto (Bld)on 10-17 Erythrocyte distribution width (RBC) [Ratio] 15.5 % High 11.5-15.0 [facility] Comment on above: Order Comment: Speci men Type: BLOOD SPECIMENOrdering Facility: [facility] Address: [address] [place] [address] Performed By: #### 5 8410-2 ####[facility] LABORATORYCLIA [id number] [address] Hematocrit (Bld) [Volume fraction] 40.2 % Normal 39.0-51.0 [facility] Comment on above: Order Comment: Speci men Type: BLOOD SPECIMENOrdering Facility: [facility] Address: [address] [place] [address] Performed By: #### 5 8410-2 ####[facility] LABORATORYCLIA [id number] [address] Hemoglobin (Bld) [Mass/Vol] 12.9 g/dL Low 13.0-17.0 [facility] Comment on above: Order Comment: Speci men Type: BLOOD SPECIMENOrdering Facility: [facility] Address: [address] [place] [address] Performed By: #### 5 8410-2 ####[facility] LABORATORYCLIA [id number] [address] MCH (RBC) [Entitic mass] 28.0 pg Normal 26.0-34.0 [facility] Comment on above: Order Comment: Speci men Type: BLOOD SPECIMENOrdering Facility: [facility] Address: [address] [place] [address] Performed By: #### 5 8410-2 ####[facility] LABORATORYCLIA [id number] [address] MCHC (RBC) [Mass/Vol] 32.1 g/dL Normal 30.5-36.0 [facility] Comment on above: Order Comment: Speci men Type: BLOOD SPECIMENOrdering Facility: [facility] Address: [address] [place] [address] Performed By: #### 5 8410-2 ####[facility] LABORATORYCLIA [id number] [address] MCV (RBC) [Entitic vol] 87.2 fL Normal 80.0-100.0 [facility] Comment on above: Order Comment: Speci men Type: BLOOD SPECIMENOrdering Facility: [facility] Address: [address] [place] [address] Performed By: #### 5 8410-2 ####[facility] LABORATORYCLIA [id number] [address] Nucleated RBC (Bld) [#/Vol] 10*3/uL Normal <0.01 [facility] Comment on above: Order Comment: Speci men Type: BLOOD SPECIMENOrdering Facility: [facility] Address: [address] [place] [address] Performed By: #### 5 8410-2 ####[facility] LABORATORYCLIA [id number] [address] STATES [facility] Platelet mean volume (Bld) [Entitic vol] 10.4 fL Normal 9.0-12.7 [facility] Comment on above: Order Comment: Speci men Type: BLOOD SPECIMENOrdering Facility: [facility] Address: [address] [place] [address] Performed By: #### 5 8410-2 ####[facility] LABORATORYCLIA [id number] [address] OF [place] Platelets (Bld) [#/Vol] 126 10*3/uL Low 150-400 [facility] Comment on above: Order Comment: Speci men Type: BLOOD SPECIMENOrdering Facility: [facility] Address: [address] [place] [address] Result Comment: No c lot detected. Performed By: #### 5 8410-2 ####[facility] LABORATORYCLIA [id number] [address] OF [place] RBC (Bld) [#/Vol] 4.61 10*6/uL Normal 4.20-6.00 [facility] Comment on above: Order Comment: Speci men Type: BLOOD SPECIMENOrdering Facility: [facility] Address: [address] [place] [address] Performed By: #### 5 8410-2 ####[facility] LABORATORYCLIA [id number] [address] [place] WBC (Bld) [#/Vol] 9.19 10*3/uL Normal 3.70-11.00 [facility] Comment on above: Order Comment: Speci men Type: BLOOD SPECIMENOrdering Facility: [facility] Address: [address] [place] [address] Performed By: #### 5 8410-2 ####[facility] LABORATORYCLIA [id number] [address] CNDSon 10-18-2023 CNDS HNO ID: [id number] Author: MIGUEL CESPEDES MD Service: General Surgery Author Type: Resident Type: Discharge Summary Filed: 10/19/2023 11:16 Note Text: Attestation signed by Miguel Cespedes MD at 10/19/2023 11:16 AM I reviewed resident's discharge summary note. I agree with his assessment, plan and recommendations unless otherwise noted. Miguel Cespedes MD 11:16 AM 10/19/23 DISCHARGE SUMMARY PATIENT NAME: Lc Grubbs Code Status: Not on file Highest Readmission Risk Score: 15 The 30 day readmissions risk score is derived from an internally validated risk model which evaluates patient level characteristics, utilization history, medication orders and lab results up until the day of discharge. Patients with a score of 40 or above are considered highest risk for readmission. Specific patient level drivers will be listed at the bottom of the summary. Admission Information Admission Information ADMIT DATE: 10/17/2023 DISCHARGE DATE: 10/18/2023 MY DOCTORS AND MEDICAL TEAM: My Main Hospital Doctor: Miguel Cespedes MD Primary Care Provider: Marciano Weaver MD My Medical Team Members: Treatment Team: Attending Provider: Miguel Cespedes MD MY CONDITION AT DISCHARGE: Good REASON I WAS IN THE HOSPITAL: Incarcerated Ventral Hernia SUMMARY OF WHAT HAPPENED WHILE I WAS IN THE HOSPITAL: You were in the hospital for an incarcerated ventral hernia. You were taken to the operating room for an exploratory laparotomy with ventral hernia repair and omentectomy. You tolerated the procedure well without any immediate complications. You were transferred to the nursing floor. You have been tolerating a diet, ambulating without difficulty, and having bowel function. You are being discharged today in stable condition. OTHER PROBLEMS/DIAGNOSIS: Principal Problem: Incarcerated ventral hernia Resolved Problems: * No resolved hospital problems. * OPERATIONS PERFORMED WHILE IN THE HOSPITAL: None IMPORTANT TEST/PROCEDURES: No procedures performed TEST RESULTS NOT AVAILABLE AT THIS TIME: No pending results Discharge Disposition Discharge Disposition: Home With Self Care Activity When You Leave the Hospital Other: Avoid heavy (>15 lbs) lifting, pushing, pulling for the next 4 weeks. You may shower 24 hours post operatively. Avoid submerging your wounds in water (ie swimming, hot tubs, baths, etc) for the next 2-3 weeks. Let water run over incisions, do not scrub, pat dry Diet Instructions Regular For Pain When You Leave the Hospital Other: You can take tylenol and ibuprofen every six hours for pain control as needed. Can start taking tylenol when you get home (2 tablets, 1,000 mg) and are more awake (~2 hours after surgery). Three hours after you take tylenol, you should take over the counter ibuprofen (2 tablets, 400 mg). In another three hours, you should repeat your dose of tylenol. Continue this schedule for the next 48 hours to help reduce post-operative pain. If you continue to have pain you should use the narcotic pain medication provided for breakthrough pain. Wound/Surgical Site Care Other: If your incision has skin glue, it will peel off on it's own. It can also get wet. If you have steri-strips, they can get wet. Let them fall off or have them removed at your clinic appointment Call Your Doctor If There is an unusual odor from the wound area There is severe pain at the operative site You have persistent nausea/vomiting over 24 hours You have redness, swelling, pus or drainage from the wound Your temperature is greater than 101F Follow Up Appointments Follow-Up Appointment When: In 2 weeks Patient/Parents to call for appointment?: Yes Miguel Cespedes MD [phone] 1 [facility] [address] [facility] [address] PCP Requested Referral Additional Provider to Provider Information: No notes on file Treatment Team: Attending Provider: Miguel Cespedes MD FOLLOW-UP APPOINTMENTS ALREADY SCHEDULED WITH A [facility] PROVIDER: No future appointments. ALLERGIES Allergen Reactions Avelox [Moxifloxaci* Hives DISCHARGE MEDICATION: Medication List START taking these medications oxyCODONE IR 5 mg immediate release tablet Commonly known as: ROXICODONE Take 1 tablet by mouth every 6 hours as needed for pain for up to 3 days. CONTINUE taking these medications ADVAIR DISKUS 500-50 mcg/dose Dsdv Generic drug: fluticasone-salmeterol albuterol HFA 90 mcg/actuation inhaler Commonly known as: PROVENTIL HFA, VENTOLIN HFA alpha lipoic acid 200 mg Cap ascorbic acid (vitamin C) 500 mg tablet Commonly known as: VITAMIN C aspirin, enteric coated 81 mg EC tablet Commonly known as: ASPIRIN, ENTERIC COATED atorvastati (more content not included)... Normal [facility] ANES PRE-OPon 10-17-2023 ANES PRE-OP HNO ID: [id number] Author: HEMALATHA WETZEL MD Service: Anesthesiology Author Type: Anesthesiologist Type: Anesthesia Preprocedure Evaluation Filed: 10/17/2023 08:25 Note Text: ANESTHESIOLOGY DAY OF SURGERY NOTE : 1950 Procedure Information Anesthesia Start Date/Time: 10/17/23 0734 Procedure: EXPLORATORY LAPAROTOMY with ventral hernia repair (Abdomen) Location: [facility] / [facility] Surgeons: Mynor Joyce MD Estimated body mass index is 38.1 kg/m? as calculated from the following: Height as of 10/02/23: 175.3 cm (5' 9). Weight as of this encounter: 117 kg (258 lb). Most recent hematocrit and potassium results: Hematocrit 45.7 10/16/2023 Potassium 4.3 10/16/2023 Relevant Problems ANESTHESIA (+) Obstructive sleep apnea (adult) (pediatric) CARDIO (+) Essential hypertension ENDO (+) Type 2 diabetes mellitus without retinopathy (HCC) -RENAL (+) NAFLD (nonalcoholic fatty liver disease) PULMONARY (+) Obstructive sleep apnea (adult) (pediatric) 72M adm with incarcerated hernia, ICD in place, afib s/p ablation- eliquis- pt states he has not taken in 2 weeks, DM2, HTN, ARMANDO- CPAP, s/p lap sleeve 2020 I - PHYSICAL EVALUATION AIRWAY Patient intubated: No. Mallampati: II. TM distance: >3 FB. Neck ROM: full ROM without neurological symptoms. Mouth opening: adequate. Short neck: no. Thick neck: no Wade present: yes DENTAL Dental findings: edentulous. II - ANESTHESIA PLAN ASA Score: 4; emergent. Anesthetic Plan: general Airway type: ETT Beta Liv Monitoring Plan Monitoring plan: standard ASA. Post Procedure Analgesic Plan Postoperative analgesic plan: parenteral or oral opioids. Informed Consent Anesthetic risks, benefits, alternatives, personnel and consent discussed: yes. Patient / Responsible Libertarian agrees to proceed: yes Patient / Surrogate agrees to blood products: Yes Significant changes in the patient condition since the History and Physical, not otherwise documented in primary service progress note: no. Potential Anesthesia issues that may suggest increased risk of complications or contraindication to planned procedure: none. Vitals Value Taken Time BP Pulse 83 10/17/23724 Resp 18 10/17/23724 Temp SpO2 96 % 10/17/23724 Vitals shown include unfiled device data. Facility-Administered Medications as of 10/17/2023 Medication Dose Route Frequency [COMPLETED] hydrALAZINE 10 mg injection (APRESOLINE) 10 mg INTRAVENOUS ONCE [COMPLETED] fentaNYL 50 mcg/mL 50 mcg injection (SUBLIMAZE) 50 mcg INTRAVENOUS ONCE rocuronium injection INTRAVENOUS PRN lactated ringers iv infusion INTRAVENOUS X (ONE-STEP ONLY) CONTINUOUS PRN NaCl 0.9% iv infusion INTRAVENOUS X (ONE-STEP ONLY) CONTINUOUS PRN fentaNYL 50 mcg/mL injection (SUBLIMAZE) INTRAVENOUS PRN ceFAZolin iv piggyback 2 g in D5W (iso-osmotic) 100 mL (ANCEF) INTRAVENOUS PRN lidocaine (PF) 20 mg/mL (2 %) injection (XYLOCAINE) INTRAVENOUS PRN succinylcholine injection (QUELICIN) INTRAVENOUS PRN propofol injection (DIPRIVAN) INTRAVENOUS PRN esmolol injection (BREVIBLOC) INTRAVENOUS PRN Outpatient Medications as of 10/17/2023 Medication Sig apixaban (ELIQUIS) 5 mg tab(s) Take 5 mg by mouth two times a day. flash glucose scanning reader (Bolt HR CASSANDRA 2 READER) metFORMIN ER (GLUCOPHAGE XR) 500 mg 24 hr tablet Take 3 tablets by mouth once daily. Patient may take 2 pills with breakfast and one with dinner dulaglutide (TRULICITY) 1.5 mg/0.5 mL pen injector Inject 1.5 mg subcutaneously one time a week. CPAP Please lower PAP to 15/11 cmH2O. Please send us 2 week download at new pressure. 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 Also please refit patient's dreamwear FFM - the headgear/tubing is likely one size too small and thus pulling up on nose through the night. DME = [facility] carvedilol (COREG) 6.25 mg tablet Take 3.125 mg by mouth twice daily with meals. furosemide (LASIX) 20 mg tablet Take 20 mg by mouth once daily. capsaicin (ZOSTRIX) 0.025 % cream Apply to affected area three times daily. Cyanocobalamin 1,000 mcg subl Dissolve 1 tablet under the tongue once daily. CPAP Please adjust bilevel to 17/13 cmH2O and turn off backup rate. Please provide download in 2-3 weeks. Please fit with [employer]wear full face mask (under nose - med frame, large cushion). ADVAIR DISKUS 500-50 mcg/dose dsdv INHALE ONE PUFF INTO THE LUNGS TWICE DAILY potassium citrate ER (UROCIT-K) 5 mEq (540 mg) TbER Take 1 tablet by mouth once daily. EASY TOUCH 31 gauge x 5/16 1 Each by INJECTION(UNSPECIFIED PARENTERAL ROUTES) route five times daily. aspirin, enteric coated (ASPIRIN, ENTERIC COATED) 81 mg EC tablet Take 1 tablet by mouth once daily. ascorbic acid, vitamin C, (VITAMIN C) 500 mg tab (more content not included)... Normal [facility] BRIEF OP NOTon 10-17-2023 BRIEF OP NOT HNO ID: [id number] Author: MYNOR JOYCE MD Service: General Surgery Author Type: Resident Type: Brief Op Note Filed: 11/15/2023 09:49 Note Text: Attestation signed by Mynor Joyce MD at 11/15/2023 9:49 AM Attestation: I was present for the critical and jordan portions of the surgery and I was immediately available to provide assistance. Mynor Joyce MD BRIEF OPERATIVE / PROCEDURE NOTE LOG ID: [id number] SURGERY/PROCEDURE DATE: 10/17/2023 INCISION/PROCEDURE START TIME: 7:57 AM INCISION CLOSE/PROCEDURE END TIME: 9:13 AM SURGEON(S)/PROCEDURALI ST(S) AND AIR PRESS OPERATOR(S): Surgeons and Role: * Mynor Joyce MD - Primary * Remy Alvarado DO - Resident - Assisting * Soha Kamara MD - Resident - Assisting * Corinna Mejia DO No Additional Staff SURGERY/PROCEDURE(S): Exploratory Laparotomy, ventral hernia repair, omentectomy ANESTHESIA: General FINDINGS: large omentum containing hernia, no signs of bowel necrosis, defect 5cm x 4cm ESTIMATED BLOOD LOSS: 15 mls SPECIMENS: ID Type Source Tests Collected by Time Destination 1 : Blood Blood ABO AND RH ONLY (Canceled), TYPE + SCREEN Mynor Joyce MD 10/17/2023 8:05 AM A : Tissue Omentum, Resection SURGICAL PATHOLOGY Mynor Joyec MD 10/17/2023 8:23 AM B : Tissue Hernia Sac SURGICAL PATHOLOGY Mynor Joyce MD 10/17/2023 8:27 AM COMPLICATIONS: None CLOSURE TECHNIQUE: Primary PRE-OP/PRE-PROCEDURE DIAGNOSIS: Incarcerated ventral hernia POST-OP/POST-PROCEDURE DIAGNOSIS: Same as Preop SIGNATURE: Soha Kamara MD PATIENT NAME: Lc Grubbs DATE: October 17, 2023 TIME: 9:32 AM [facility] ED NOTEon 10-17-2023 ED NOTE HNO ID: [id number] Author: MERA NEGRETE, IDALIA Service: Emergency Medicine Author Type: Registered Nurse Type: ED Notes Filed: 10/17/2023 07:09 Note Text: Per security infrastructure engineer RN OR is on the way to get patient. Patient is in a gown and no jewelry per RN Normal [facility] ED NOTE HNO ID: [id number] Author: TUAN CAN MD Service: ? Author Type: Physician Type: ED Notes Filed: 10/17/2023 06:08 Note Text: Chart reviewed showing PMHx HTN, HLD, DM2, depression, asthma, ARMANDO, HFrEF s/p BiV PPM with recovery, PAF on eliquis. Pt presenting from [place] for surgical consultation for incarcerated umbilical hernia. He reports it came out more earlier with BM. He reports improved pain with reduction attempt at [place] and analgesia with no pain now and still present but improved. He became slightly hypoxic with fentanyl so placed on 2L O2. Well-appearing Heart RRR Lungs no respiratory distress or cyanosis Distal pulses intact Abd soft, NT, ND. Umbilical hernia with defect likely ~4cm in diameter CBC shows no significant leukocytosis or severe anemia BMP shows no significant electrolyte abnormality or kidney injury, though with mild hyperglycemia Lipase shows no evidence of pancreatitis Lactate wnl CT A/P shows incarcerated umbilical hernia Surgery consulted and are taking the pt to the OR given his incarcerated hernia. Tuan Can MD Normal [facility] ED NOTE HNO ID: [id number] Author: ROXANN BEVERLY, IDALIA Service: ? Author Type: Registered Nurse Type: ED Notes Filed: 10/17/2023 05:10 Note Text: Bed: 25-ED Expected date: Expected time: Means of arrival: Comments: Squad Normal [facility] ED NOTE HNO ID: [id number] Author: EMMANUEL REYNA RN Service: Emergency Medicine Author Type: Registered Nurse Type: ED Notes Filed: 10/17/2023 04:05 Note Text: Stable on leaving facility with transport Normal [facility] ED NOTE HNO ID: [id number] Author: EMMANUEL REYNA RN Service: Emergency Medicine Author Type: Registered Nurse Type: ED Notes Filed: 10/17/2023 01:42 Note Text: Abdomen around umbilicus softer than previous. Patients pain improved. Physician aware and updated, to bedside to assess. Vs as charted. Call light in reach. Normal [facility] ED PROV NOTEon 10-17-2023 ED PROV NOTE HNO ID: [id number] Author: TUAN CAN MD Service: Emergency Medicine Author Type: Physician Type: ED Provider Notes Filed: 10/17/2023 06:48 Note Text: ED CONTINUATION OF CARE NOTE Code Status: Full Code Assumed care from: transfer from [place] FED for surgical consultation of incarcerated abdominal hernia. Presentation / Findings / Interventions / Plan / Items to Follow Up: Patient tfer from [place] for concern for incarcerated umbilical hernia. Unable to be reduced at [place]; patient sustained a desaturation event with 50 mcg fentanyl; not deemed safe to reattempt. EP attending discussed with surgical attending Dr. Monroe who agreed from ED to ED transfer for surgical evaluation. Patient NPO at this time in stable condition. Patient hypertensive at [place]. Did not take BP meds and in pain; given hydral 10 mg prior to transfer. Patient transferred in stable condition to the OR under care of Dr. Monroe. Teofilo Alvarez M.D. Emergency Medicine Resident, PGY-3 [facility] This note was created using [employer] dictation software. Every attempt was made to proofread, however you may find errors regardless of how insignificant they may be. They are purely unintentional and if there are any concerns regarding this dictation, please do not hesitate to call the dictating provider for clarification. Clinical Impressions as of 10/17/2336 Incarcerated hernia Medical Decision Making SIGNATURE: Teofilo Alvarez MD PATIENT NAME: Lc Grubbs DATE: October 17, 2023 TIME: 5:29 AM PAGER/CONTACT #: TEOFILO ALVAREZ 10/17/23 0637 Attending Note I evaluated the patient and personally participated in the jordan components. I agree with the resident's findings and plan as documented and have discussed the case and management of the patient's care with the resident. Please see my other note. Signature: Tuan Can MD Date: 10/17/2023 Time: 6:48 AM YANCY TUAN Tina 10/17/23 0648 Normal [facility] ED PROV NOTE HNO ID: [id number] Author: KRIS ECKERT MD Service: Emergency Medicine Author Type: Physician Type: ED Provider Notes Filed: 10/17/2023 01:11 Note Text: ED Provider Note Patient Name: Lc Grubbs : 1950 SERVICE DATE: 10/16/23 History Patient presents with: Abdominal Pain Hernia HPI This is a 72 old gentleman with history as below, pertinent history of bariatric surgery back in 2019, morbid obesity, sleep apnea coming in with concerns for abdominal pain. Has a known umbilical hernia but previously was not having issues with it. Reports that today about 7:00 was having a bowel movement, bearing down and developed significant periumbilical pain. States that he had bulging mass is not able to reduce. States that he had significant pain, nausea 1 episode of nonbloody emesis. Has been passing gas since then but states that this worsens abdominal pain. Presents for ED assessment. NO fever or chills. PAST MEDICAL HISTORY No date: Asthma No date: Atrial fibrillation ([facility]) Comment: S/P successful cardioversion in 2015; maintained on Sotolol and Eliquis No date: Cardiac defibrillator in place Comment: April 2011 No date: CHF (congestive heart failure) ([facility]) Comment: Class III No date: Depression No date: Diabetes mellitus ([facility]) 08/2019: H/O bariatric surgery No date: Hyperlipidemia No date: Hypertension No date: Kidney stone No date: Morbid obesity ([facility]) 2011: Non-ischemic cardiomyopathy ([facility]) Comment: Biventricular pacing device/defibrillator placed; EF recovered to 65% in 2017 No date: ARMANDO (obstructive sleep apnea) Comment: CPAP PAST SURGICAL HISTORY 06/30/2023: ABLATION A-FIB BY PVI 07/2016: CARDIAC CATH Comment: done for positive stress test; Mild CAD of LAD, Circumflex, and RCA; EF 40-45% 2016: CARDIOVERSION Comment: Successful cardioversion of atrial fibrillation No date: COLONOSCOPY Comment: maybe 10 yrs ago 12/20/2018: DEFIBRILLATOR SURGERY Comment: April 2011 09/03/2019: EGD Comment: GASTRIC WALL TISSUE WITH MILD REACTIVE GASTROPATHY 01/07/2020: EGD EUS 03/04/2014: ELBOW Comment: reconstructed elbow 09/03/2019: LAP SLEEVE GASTRECTOMY Comment: hernia repair, lysis of adhesions and intraoperative EGD 07/01/2020: LIVER BIOPSY No date: PACEMAKER IMPLANT Comment: april 2011 - [facility] 11/2017: REMOVAL GALLBLADDER 1960's: TONSILLECTOMY HX No date: TOOTH EXTRACTION FAMILY HISTORY Problem Relation Age of Onset - Cancer Father lung - Cancer Mother kidney, bone - other (myocardial infarction) Sister - Colon Cancer No Family History Social History Tobacco Use - Smoking status: Never - Smokeless tobacco: Never Vaping Use - Vaping status: Never Used Substance and Sexual Activity - Alcohol use: No - Drug use: No - Sexual activity: Yes Partners: Female ALLERGIES Allergen Reactions - Avelox [Moxifloxaci* Hives Review of Systems Per HPI Physical Exam Vitals [10/16/232108] BP Pulse Temp Temp src Resp SpO2 Weight Height (!) 196/116 83 (!) 35.8 ?C (96.5 ?F) Temporal 16 99 % 117.2 kg (258 lb 6.4 oz) -- Physical Exam Is obvious uncomfortable but hemodynamically stable. He is hypertensive likely related to pain and noncompliance with medications. Heart RRR w/o murmurs; Distal pulses intact Lungs CTAB Abd obese, soft. Palpable umbilical hernia that is firm without overlying skin changes. unable to reduce Patient moves all 4 extremities spontaneously and without deficit Diagnostic Testing ED Labs Ordered and Reviewed COMPREHENSIVE METABOLIC PANEL - Abnormal; Notable for the following components: Result Value Ref Range Bilirubin, Total 4.2 (*) 0.2 - 1.3 mg/dL Glucose 188 (*) 74 - 99 mg/dL BUN 25 (*) 9 - 24 mg/dL Creatinine 1.54 (*) 0.73 - 1.22 mg/dL Estimated Glomerular Filtration Rate 48 (*) >=60 mL/min/1.73m? All other components within normal limits COMPLETE BLOOD COUNT AND DIFFERENTIAL - Abnormal; Notable for the following components: Platelet Count 132 (*) 150 - 400 k/uL Abs Neut 7.64 (*) 1.45 - 7.50 k/uL Abs Lymph 0.75 (*) 1.00 - 4.00 k/uL All other components within normal limits LIPASE - Normal LACTATE/LACTIC ACID - Normal Procedures ED Course / Clinical Impression Clinical Impressions as of 10/17/23 0111 Incarcerated hernia Splenic lesion MDM / Disposition / Plan MDM Patient is a 72-year-old male with history as above presenting with complaints of abdominal pain. History and exam as above. Medical record reviewed. Additional encounters reviewed: gen surg visit from 06/02/23 HPI obtained from patient, , medical record DDx considered: At this time for incarcerated versus strangulated bowel. Unable to reduce. Given pain control, ice pack appliedin Trendelenburg position. ED COURSE: Quite hypertensive on arrival likely secondary to pain as well as medication noncompliance as he reports that he is not taking any of h (more content not included)... Normal [facility] HISTORY PHYSICALon HISTORY PHYSICAL HNO ID: [id number] Author: MYNOR JOYCE MD Service: General Surgery Author Type: Resident Type: H&P Filed: 11/09/2023 09:11 Note Text: Attestation signed by Mynor Joyce MD at 11/09/2023 9:11 AM I personally saw and examined the patient on 10/17/23. I reviewed the resident's note. I agree with the resident's assessment and plan unless otherwise noted. To OR emergently for incarcerated ventral hernia. Mynor Joyce MD HISTORY AND PHYSICAL EXAM: EGS SERVICE SERVICE DATE: 10/17/2023 SERVICE TIME: 6:20 AM Subjective CHIEF COMPLAINT: Ventral Hernia HPI: 72 year old male w/ PMHx of Asthma, Afib s/p Ablation (Eliquis), CHF, Depression, T2DM, HLD, HTN, Obesity (BMI 38), ARMANDO, s/p Lap Sleeve (2019), Cholecystectomy who presented to an outside hospital complaining of pain related to a ventral hernia without the ability to reduce. He states he has not had a bowel movement in a day and a half and has not passed gas since yesterday afternoon. At the outside hospital he had a CTAP collected which demonstrated a Large umbilical Hernia w/ short loop of small bowel. They attempted to reduce and were unsuccessful so he was transferred to [facility] for surgical evaluation. I evaluated the Pt at bedside, he states his pain is moderately well controlled. He denies any nausea, vomiting, fever, or chills. FUNCTIONAL STATUS: Independent PAST MEDICAL HISTORY No date: Asthma No date: Atrial fibrillation ([facility]) Comment: S/P successful cardioversion in 2015; maintained on Sotolol and Eliquis No date: Cardiac defibrillator in place Comment: April 2011 No date: CHF (congestive heart failure) ([facility]) Comment: Class III No date: Depression No date: Diabetes mellitus ([facility]) 08/2019: H/O bariatric surgery No date: Hyperlipidemia No date: Hypertension No date: Kidney stone No date: Morbid obesity ([facility]) 2012: Non-ischemic cardiomyopathy ([facility]) Comment: Biventricular pacing device/defibrillator placed; EF recovered to 65% in 2016 No date: ARMANDO (obstructive sleep apnea) Comment: CPAP PAST SURGICAL HISTORY 06/30/2023: ABLATION A-FIB BY PVI 07/2016: CARDIAC CATH Comment: done for positive stress test; Mild CAD of LAD, Circumflex, and RCA; EF 40-45% 2016: CARDIOVERSION Comment: Successful cardioversion of atrial fibrillation No date: COLONOSCOPY Comment: maybe 10 yrs ago 12/20/2018: DEFIBRILLATOR SURGERY Comment: April 2011 09/03/2019: EGD Comment: GASTRIC WALL TISSUE WITH MILD REACTIVE GASTROPATHY 01/07/2020: EGD EUS 03/04/2014: ELBOW Comment: reconstructed elbow 09/03/2019: LAP SLEEVE GASTRECTOMY Comment: hernia repair, lysis of adhesions and intraoperative EGD 07/01/2020: LIVER BIOPSY No date: PACEMAKER IMPLANT Comment: april [address] [facility] 11/2017: REMOVAL GALLBLADDER 1959's: TONSILLECTOMY HX No date: TOOTH EXTRACTION FAMILY HISTORY Problem Relation Age of Onset Cancer Father lung Cancer Mother kidney, bone other (myocardial infarction) Sister Colon Cancer No Family History Social History Tobacco Use Smoking status: Never Smokeless tobacco: Never Vaping Use Vaping status: Never Used Substance Use Topics Alcohol use: No Drug use: No (Not in a hospital admission) ALLERGIES Allergen Reactions Avelox [Moxifloxaci* Hives COMPLETE REVIEW OF SYSTEMS: GENERAL: No weight loss, malaise or fevers. HEENT: Negative for frequent or significant headaches, No changes in hearing or vision, no nose bleeds or other nasal problems. NECK: Negative for lumps, goiter, pain and significant neck swelling. RESPIRATORY: Negative for cough, hemoptysis, wheezing, COPD, dyspnea or shortness of breath. CARDIOVASCULAR: Negative for chest pain, leg swelling, hypertension, CHF or palpitations. GI: Complains of non-reducible ventral hernia with associated abdominal pain MUSCULOSKELETAL: Negative for joint pain or swelling, back pain or muscle pain. SKIN: Negative for lesions, rash, and itching. PSYCH: Negative for sleep disturbance, mood disorder and recent psychosocial stressors. NEURO: No history of headaches, syncope, paralysis, seizures or tremors. Objective BP 151/88 Pulse 87 Temp (Src) 98.2 (Oral) Resp 18 Wt 258 lb (117.0kg) SpO2 95% O2 Therapy: Nasal Cannula, Liters: 2 PHYSICAL EXAM: GENERAL: Alert. No distress. Resting comfortably. NEURO: AANDOx3. No focal neurologic deficits. Sensation grossly intact. HEENT: Normocephalic. Atraumatic. EOMI. LUNGS: Unlabored breathing. Equal excursion bilaterally. CARDIAC: Regular rate. Good perfusion throughout. ABDOMEN: Soft, ventral hernia without overlying skin changes, non-reducible, tender to palpation EXTREMITIES: WEST. No deformities. SKIN: No obvious jaundice or pallor. DATA: Labs: Recent Labs 10/16/23 21 (more content not included)... Normal [facility] OPERATIVE NOon 10-17-2023 OPERATIVE NO HNO ID: [id number] Author: MYNOR JOYCE MD Service: General Surgery Author Type: Resident Type: Operative Report Filed: 11/09/2023 09:10 Note Text: Attestation signed by Mynor Joyce MD at 11/09/2023 9:10 AM Attestation: I was present for the critical and jordan portions of the surgery and I was immediately available to provide assistance. Mynor Joyce MD OPERATIVE/PROCEDURE REPORT LOG ID: [id number] SURGERY/PROCEDURE DATE: 10/17/2023 INCISION/PROCEDURE START TIME: 7:57 AM INCISION CLOSE/PROCEDURE END TIME: 9:13 AM SURGEON(S)/PROCEDURALI ST(S) AND AIR PRESS OPERATOR(S): Surgeons and Role: * Mynor Joyce MD - Primary * Remy Alvarado DO - Resident - Assisting * Soha Kamara MD - Resident - Assisting * Corinna Mejia DO No Additional Staff SURGERY/PROCEDURE(S): exploratory laparotomy, lysis of adhesions, primary repair of umbilical hernia INDICATIONS: 72 year old male h/o asthma, Afib s/p Ablation on Eliquis (takes intermittently and has not had in several weeks), CHF, depression, T2DM, HLD, HTN, obesity (BMI 38), ARMANDO, s/p Lap Sleeve (2019), cholecystectomy who presented to an outside hospital complaining of pain related to known ventral hernia without the ability to reduce. He states he has not had a bowel movement in a day and a half and has not passed gas since yesterday afternoon. At the outside hospital he had a CTAP collected which demonstrated a large umbilical hernia containing loop of small bowel. Outside ED attempted reduction but were unsuccessful. He was subsequently transferred here for further workup and evaluation. In the ED, VSS. Labs significant for creatinine 1.54, bili 4.2. Otherwise unremarkable. At bedside, hernia with overlying skin changes and unable to be reduced, so the decision was made to proceed to the OR for definitive management. ANESTHESIA: General SURGERY/PROCEDURE DETAILS: Patient was brought into the operating room where a huddle, time-out, preoperative antibiotics, magallanes, and proper positioning were all performed. The necessary medical equipment and staff were all present in the room. Abdomen was then sterilely prepped and draped in the usual fashion. We began making an incision overlying large umbilical hernia using a scalpel. We carefully dissected down using electrocautery being careful not to inadvertently enter the hernia sac. The hernia sac was quickly identified and freed of its surrounding attachments. It was then carefully opened using Metzenbaum scissors. It only contained healthy appearing omentum. It was fairly redundant and difficult to reduce, so we extended the fascial defect superiorly. While reducing the omentum, there was a small amount of bleeding, so we resected a small portion of the omentum using suture ligation. The entirety of the hernia contents were then successfully reduced back into the abdomen. Underlying small bowel was closely examined without any evidence of ischemia. The surrounding fascia was then cleared and debrided back to healthy appearing tissue. Some of the hernia sac was removed using electrocautery. We then measured the hernia defect which measured 5 x 8 cm. Given emergent operation and increased risk of translocation, we elected to perform a primary repair with multiple figure of eight 0 PDS sutures. The wound was then copiously irrigated and was closed using deep dermal 3-0 vicryl and jenny. The patient tolerated the procedure well without any complications. Post operatively, he was taken to PACU in good condition. PRE-OP/PRE-PROCEDURE DIAGNOSIS: incarcerated umbilical hernia POST-OP/POST-PROCEDURE DIAGNOSIS: Same as Preop ESTIMATED BLOOD LOSS: 50 mls SPECIMENS: omentum, hernia sac IMPLANTABLE DEVICES: NONE DRAINS: None COMPLICATIONS: None CLOSURE TECHNIQUE: Primary SIGNATURE: Remy Alvarado DO PATIENT NAME: Lc Grubbs DATE: October 25, 2023 TIME: 3:02 PM Normal [facility] SURGICAL PATHOLOGYon 024 CASE REPORT Normal [facility] Comment on above: Order Comment: Speci men Type: TISSUE SPECIMENOrdering Facility: [facility] Address: [address] [place] [address] [place] [id number] Result Comment: Surg ical Pathology Report Case: [id number] Authorizing Provider: Mynor Joyce MD Collected: 10/17/2023 08:23 AM Ordering Location: [facility] Received: 10/17/2023 10:55 AM Pathologist: Jayne Butler MD Specimens: A) - Omentum, Resection B) - Hernia Sac Performed By: #### S ####[facility] LABORATORYCLIA [id number] [address] CLINICAL HISTORY Normal [facility] Comment on above: Order Comment: Speci men Type: TISSUE SPECIMENOrdering Facility: [facility] Address: [address] [place] [address] Result Comment: Pre- op diagnosis: Incarcerated ventral hernia [K43.6] Performed By: #### S ####[facility] LABORATORYCLIA [id number] [address] FINAL DIAGNOSIS Normal [facility] Comment on above: Order Comment: Speci men Type: TISSUE SPECIMENOrdering Facility: [facility] Address: [address] [place] [address] Result Comment: A. O mentum, resection: - Benign adipose tissue with focally congested and dilated vessels. B. Submitted as (hernia sac), resection/hernia repair: - Benign fibroadipose tissue partially covered by mesothelium, consistent with hernia sac. Performed By: #### S ####[facility] LABORATORYCLIA [id number] [address] FINAL PERFORMING LAB Normal [facility] Comment on above: Order Comment: Speci men Type: TISSUE SPECIMENOrdering Facility: [facility] Address: [address] [place] [address] Result Comment: Diag nostic interpretation performed at [facility], [address] [place] [address] CLIA# [id number] Software Architect: Marciano Oreilly M.D. Performed By: #### S ####[facility] LABORATORYCLIA [id number] [address] [place] GROSS DESCRIPTION Normal [facility] Comment on above: Order Comment: Speci men Type: TISSUE SPECIMENOrdering Facility: [facility] Address: [address] [place] [address] Result Comment: A. O mentum, Resection Received in formalin labeled omentum resection is a segment of yellow lobulated omental tissue measuring 15 x 11 x 1.8 cm. Sectioning reveals unremarkable cut surfaces. Contract Specialist sections are submitted in formalin in 2 cassettes. B. Hernia Sac Received in formalin labeled hernia sac is a sac shaped segment of pink membranous tissue measuring 9.0 x 8.0 x 1.5 cm. Sectioning reveals fibrofatty cut surfaces with areas of yellow lobulated adipose tissue. No focal area of induration or nodularity is seen. Contract Specialist sections are submitted in formalin in 1 cassette. Gross examination performed at [facility], [address] [place] [address] CLIA#[id number] [facility] October 17, 2023 11:27 AM Performed By: #### S ####[facility] LABORATORYCLIA [id number] [address] [place] TYPE + SCREENon 10-17-2023 ABO A Normal [facility] Comment on above: Order Comment: Speci men Type: BLOOD SPECIMENOrdering Facility: [facility] Address: [address] [place] [address] Performed By: #### T SCR ####[facility] BLOOD BANKCLIA [id number] [place] [address] [place] HISTORICAL AB SCR STATUS Negative Normal [facility] Comment on above: Order Comment: Speci men Type: BLOOD SPECIMENOrdering Facility: [facility] Address: [address] [place] [address] Performed By: #### T SCR ####[facility] BLOOD BANKCLIA [id number] [place] [address] [place] Rh Nom (Bld) Positive Normal [facility] Comment on above: Order Comment: Speci men Type: BLOOD SPECIMENOrdering Facility: [facility] Address: [facility] [place] [address] Performed By: #### T SCR ####[facility] BLOOD BANKCLIA [id number] [place] [address] [facility] TYPE AND SCREEN EXPIRATION 10/20/2023 23:59 Normal [facility] Comment on above: Order Comment: Speci men Type: BLOOD SPECIMENOrdering Facility: [facility] Address: [address] [place] [address] Performed By: #### T SCR ####[facility] BLOOD BANKCLIA [id number] [place] [address] [facility] ALLIED HEALTHon 10-16-2023 ALLIED HEALTH HNO ID: [id number] Author: AMANDA MADRIGAL TECHNOLOGIST Service: Radiology Author Type: Technologist Type: Allied Health Filed: 10/16/2023 22:51 Note Text: Radiology Service Progress Note DATE OF SERVICE: October 16, 2023 TIME: 10:50 PM PATIENT IDENTITY VERIFICATION COMPLETED USING TWO (2) STANDARD IDENTIFIERS: Name and Date of confirmed by patient verbally and Name and Date of confirmed by identification band. FALL SCREENING: Has the patient had 2 falls in the last year or 1 fall with injury or currently using an Ambulatory Assistive Device (Walker, Cane, Wheelchair, Crutches, etc.)? Emergency Room Patient: Screened in ED PATIENT GENDER DATA: Male PATIENT RELEVANT IMPLANT DATA REVIEWED: Yes PATIENT PRESENTS WITH AN IMPLANTABLE OR ATTACHED MANAGER STRATEGIC PARTNERSHIPS: No ALLERGIES: Reviewed and unchanged CONTRAST ALLERGY: NO. EXAM: CT -CONTRAST INDUCED NEPHROPATHY RISK FACTORS: Patient age > 60 years and Diabetic: No and Yes. Current medication(s): Metformin. Patient currently has insulin pump?: No. CREATININE: Creatinine Date Value Ref Range Status 10/16/2023 1.54 (H) 0.73 - 1.22 mg/dL Final 08/20/2021 1.44 (H) 0.73 - 1.22 mg/dL Final 09/14/2020 1.33 (H) 0.73 - 1.22 mg/dL Final Estimated Glomerular Filtration Rate Date Value Ref Range Status 10/16/2023 48 (L) >=60 mL/min/1.73m? Final Comment: Estimated Glomerular Filtration Rate (eGFR) is calculated using the 2020 CKD-EPI creatinine equation. This equation utilizes serum creatinine, sex, and age as parameters. The creatinine assay has traceable calibration to isotope dilution-mass spectrometry. Refer to KDIGO guidelines for clinical interpretation. In patients with unstable renal function, e.g. those with acute kidney injury, the eGFR may not accurately reflect actual GFR. eGFR- Date Value Ref Range Status 09/14/2020 >60 Final P.O.C.T. RESULTS: POC done: Yes, See Lab Tab October 16, 2023 TREATMENT: N/A PERIPHERAL IV DATA: Inpatient - refer to LDA documentation RADIOLOGY DEPARTMENT: CT; Exam(s) Completed: Abdomen/Pelvis SIGNATURE: Amanda Madrigal TECHNOLOGIST PATIENT NAME: Lc Grubbs DATE: October 16, 2023 TIME: 10:50 PM Normal [facility] CBC W Auto Differential pane l (Bld)on 10-16-2023 Basophils (Bld) [#/Vol] 10*3/uL Normal <0.11 A [facility] Comment on above: Order Comment: Speci men Type: BLOOD SPECIMENOrdering Facility: [facility] Address: [address] [place] [address] Performed By: #### 5 7021-8 ####[facility] M[place] LABCLIA [id number] [address] [place] Basophils/100 WBC (Bld) 0.2 % Normal A [facility] Comment on above: Order Comment: Speci men Type: BLOOD SPECIMENOrdering Facility: [facility] Address: [address] [place] [address] Performed By: #### 5 7021-8 ####[facility] [place] LABCLIA [id number] [place] [id number] [facility] Differential cell count method Nom (Bld) Auto Normal [facility] Comment on above: Order Comment: Speci men Type: BLOOD SPECIMENOrdering Facility: [facility] Address: [address] [place] [address] Performed By: #### 5 7021-8 ####[facility] LABCLIA [id number] [facility] [place] [address] [place] Eosinophils (Bld) [#/Vol] 0.05 10*3/uL Normal <0.46 [facility] Comment on above: Order Comment: Speci men Type: BLOOD SPECIMENOrdering Facility: [facility] Address: [address] [place] [address] Performed By: #### 5 7021-8 ####[facility] LABCLIA [id number] [place] [address] [facility] [place] Eosinophils/100 WBC (Bld) 0.6 % Normal [facility] Comment on above: Order Comment: Speci men Type: BLOOD SPECIMENOrdering Facility: [facility] Address: [address] [place] [address] Performed By: #### 5 7021-8 ####[facility] LABCLIA [id number] [place] [address] [facility] Erythrocyte distribution width (RBC) [Ratio] 14.9 % Normal 11.5-15.0 [facility] Comment on above: Order Comment: Speci men Type: BLOOD SPECIMENOrdering Facility: [facility] Address: [address] [place] [address] Performed By: #### 5 7021-8 ####[facility] LABCLIA [id number] [place] [address] [place] Hematocrit (Bld) [Volume fraction] 45.7 % Normal 39.0-51.0 [facility] Comment on above: Order Comment: Speci men Type: BLOOD SPECIMENOrdering Facility: [facility] Address: [address] [place] [address] Performed By: #### 5 7021-8 ####[facility] LABCLIA [id number] [place] [address] [facility] [place] Hemoglobin (Bld) [Mass/Vol] 14.9 g/dL Normal 13.0-17.0 [facility] Comment on above: Order Comment: Speci men Type: BLOOD SPECIMENOrdering Facility: [facility] Address: [address] [place] [address] Performed By: #### 5 7021-8 ####[facility] LABCLIA [id number] [place] [address] [facility] Immature granulocytes (Bld) [#/Vol] 0.03 10*3/uL Normal <0.10 [facility] Comment on above: Order Comment: Speci men Type: BLOOD SPECIMENOrdering Facility: [facility] Address: [address] [place] [address] Performed By: #### 5 7021-8 ####[facility] LABCLIA [id number] [place] [address] [facility] Immature granulocytes/100 WBC (Bld) 0.3 % Normal [facility] Comment on above: Order Comment: Speci men Type: BLOOD SPECIMENOrdering Facility: [facility] Address: [address] [place] [address] Performed By: #### 5 7021-8 ####[facility] LABCLIA [id number] [place] [address] [place] Lymphocytes (Bld) [#/Vol] 0.75 10*3/uL Low 1.00-4.00 [facility] Comment on above: Order Comment: Speci men Type: BLOOD SPECIMENOrdering Facility: [facility] Address: [address] [place] [address] Performed By: #### 5 7021-8 ####[facility] [place] LABCLIA [id number] [place] [address] [facility] Lymphocytes/100 WBC (Bld) 8.4 % Normal [facility] Comment on above: Order Comment: Speci men Type: BLOOD SPECIMENOrdering Facility: [facility] Address: [address] [place] [address] Performed By: #### 5 7021-8 ####[facility] [place] LABCLIA [id number] [facility] [place] [address] [place] MCH (RBC) [Entitic mass] 28.0 pg Normal 26.0-34.0 [facility] Comment on above: Order Comment: Speci men Type: BLOOD SPECIMENOrdering Facility: [facility] Address: [address] [place] [address] Performed By: #### 5 7021-8 ####[facility] [place] LABCLIA [id number] [place] [address] [place] [address] [facility] MCHC (RBC) [Mass/Vol] 32.6 g/dL Normal 30.5-36.0 [facility] Comment on above: Order Comment: Speci men Type: BLOOD SPECIMENOrdering Facility: [facility] Address: [address] [place] [address] Performed By: #### 5 7021-8 ####[facility] LABCL[facility] [id number] [place] [address] [facility] MCV (RBC) [Entitic vol] 85.9 fL Normal 80.0-100.0 [facility] Comment on above: Order Comment: Speci men Type: BLOOD SPECIMENOrdering Facility: [facility] Address: [address] [place] [address] Performed By: #### 5 7021-8 ####[facility] LABCLIA [id number] [place] [address] [facility] Monocytes (Bld) [#/Vol] 0.40 10*3/uL Normal <0.87 [facility] Comment on above: Order Comment: Speci men Type: BLOOD SPECIMENOrdering Facility: [facility] Address: [address] [place] [address] Performed By: #### 5 7021-8 ####[facility] [place] LABCLIA [id number] [place] [id number] [facility] Monocytes/100 WBC (Bld) 4.5 % Normal [facility] Comment on above: Order Comment: Speci men Type: BLOOD SPECIMENOrdering Facility: [facility] Address: [address] [place] [address] Performed By: #### 5 7021-8 ####[facility] [place] LABCLIA [id number] [place] [address] [place] Neutrophils (Bld) [#/Vol] 7.64 10*3/uL High 1.45-7.50 [facility] Comment on above: Order Comment: Speci men Type: BLOOD SPECIMENOrdering Facility: [facility] Address: [address] [place] [address] Performed By: #### 5 7021-8 ####[facility] [place] LABCLIA [id number] [place] [address] [place] Neutrophils/100 WBC (Bld) 86.0 % Normal [facility] Comment on above: Order Comment: Speci men Type: BLOOD SPECIMENOrdering Facility: [facility] Address: [address] [place] [address] Performed By: #### 5 7021-8 ####[facility] [place] LABCLIA [id number] [facility] [place] [address] [place] Nucleated RBC (Bld) [#/Vol] Normal [facility] Comment on above: Order Comment: Speci men Type: BLOOD SPECIMENOrdering Facility: [facility] Address: [address] [place] [address] Performed By: #### 5 7021-8 ####[facility] [place] LABCLIA [id number] [facility] [place] [address] [place] Nucleated RBC/100 WBC (Bld) [Ratio] Normal [facility] Comment on above: Order Comment: Speci men Type: BLOOD SPECIMENOrdering Facility: [facility] Address: [address] [place] [address] Performed By: #### 5 7021-8 ####[facility] [place] LABCLIA [id number] [facility] [place] [address] [place] Platelet mean volume (Bld) [Entitic vol] 10.6 fL Normal 9.0-12.7 [facility] Comment on above: Order Comment: Speci men Type: BLOOD SPECIMENOrdering Facility: [facility] Address: [address] [place] [address] Performed By: #### 5 7021-8 ####[facility] [place] LABCLIA [id number] [place] [address] [facility] Platelets (Bld) [#/Vol] 132 10*3/uL Low 150-400 [facility] Comment on above: Order Comment: Speci men Type: BLOOD SPECIMENOrdering Facility: [facility] Address: [address] [place] [address] Performed By: #### 5 7021-8 ####[facility] LABCLIA [id number] [place] [address] [facility] RBC (Bld) [#/Vol] 5.32 10*6/uL Normal 4.20-6.00 [facility] Comment on above: Order Comment: Speci men Type: BLOOD SPECIMENOrdering Facility: [facility] Address: [address] [place] [address] Performed By: #### 5 7021-8 ####[facility] LABCLIA [id number] [place] [address] [facility] WBC (Bld) [#/Vol] 8.89 10*3/uL Normal 3.70-11.00 [facility] Comment on above: Order Comment: Speci men Type: BLOOD SPECIMENOrdering Facility: [facility] Address: [address] [place] [address] Performed By: #### 5 7021-8 ####[facility] [place] LABCLIA [id number] [place] [address] [facility] [address] ABD/PEL W IVCONon 024 CT ABD/PEL W IVCON * * *Final Report* * * DATE OF EXAM: Oct 16 2023 10:49PM [facility] 0530 - CT ABD/PEL W IVCON / PROCEDURE REASON: Bowel obstruction suspected * * * * Physician Interpretation * * * * EXAMINATION: CT ABDOMEN AND PELVIS WITH IV CONTRAST CLINICAL HISTORY: Nausea and vomiting, periumbilical pain and nausea. TECHNIQUE: CT of the abdomen and pelvis was performed using standard technique, scanning from just above the dome of the diaphragm to the symphysis pubis. MQ: CTAP_3 Contrast: IV: 100 ml of Omnipaque 300 CT Radiation dose: Integrated Dose-length product (DLP) for this visit = 1093.68 mGy*cm. CT Dose Reduction Employed: Automated exposure control(AEC) and iterative recon COMPARISON: CT abdomen and pelvis 01/25/2019. RESULT: Liver: Unchanged low density cyst in the left hepatic lobe. Biliary: No bile duct dilation. Gallbladder is absent. Spleen: Stable mild splenomegaly at 15.8 cm with the redemonstration of several indeterminate splenic lesions. Two hypodense lesions have increased in size, measuring 1.8 cm anteriorly and 2.3 cm posteriorly. Pancreas: No mass or duct dilation. Adrenals: No mass. Kidneys: 1.0 cm stone in the right renal pelvis with adjacent uroepithelial thickening. No nancy hydronephrosis. 1.5 cm low density cyst in the right mid kidney. GI tract: Large umbilical ventral abdominal wall hernia containing a short segment loop of small bowel, which is dilated measuring up to 3.5 cm and mild adjacent ascites/fluid . Postsurgical changes of prior gastric sleeve surgery. Colonic diverticulosis. Lymph nodes: No abdominal or pelvic lymphadenopathy. Mesentery/Peritoneum: No ascites or mass. Retroperitoneum: No mass. Vasculature: - Abdominal aorta and iliac arteries: Atherosclerotic calcifications without aneurysm. - Celiac and SMA: Patent without stenosis. - Portal venous system (SMV, splenic vein, portal vein and branches): Patent. - Hepatic veins: Patent. Pelvis: No mass, ascites or fluid collection. Bones/Soft Tissues: Degenerative changes. Additional smaller fat-containing supraumbilical ventral abdominal hernia. Lower thorax: Mild linear opacities in the lung bases favored to represent atelectasis. No consolidation. Partially visualized ICD leads. Localizer images: No additional findings. IMPRESSION: 1. Large umbilical ventral abdominal wall hernia containing a short segment loop of mildly dilated small bowel with mild adjacent ascites, concerning for short segment incarcerated hernia/. 2. Redemonstration of splenomegaly with 2 enlarging indeterminate splenic lesions. Recommend follow-up CT or MRI in 3-6 months for evaluation. 3. Left renal pelvis 1.0 cm stone with with presumed reactive uroepithelial thickening. Findings can be reevaluated on a follow-up exam is recommended above. ACTIONABLE RESULT: FOLLOW-UP Acuity: Actionable Findings: Lymphatic System Routing Code: Lymph_1 Recommendation: Unlisted Recommendation (see report) Time Frame: Additional evaluation as described in the impression COMMUNICATION: Results will be communicated with the ordering provider via SmartRx staff message or phone message by [facility] [employer] within 2 business days of report finalization. --END OF FINDING-- Lining Strap Closer: MARYAM Transcribe Date/Time: Oct 17 2023 12:24A Dictated by : PHILLIP LEGGETT MD This examination was interpreted and the report reviewed and electronically signed by: PHILLIP LEGGETT MD on Oct 17 2023 12:35AM EST [id number] ACTIONABLE Invalid Interpretation Code [facility] Comprehensive metabolic 2000 panelon 10-16-2023 Albumin [Mass/Vol] 4.4 g/dL Normal 3.9-4.9 [facility] Comment on above: Order Comment: Speci men Type: BLOOD SPECIMENOrdering Facility: [facility] Address: [address] [place] [address] Performed By: #### 2 4323-8, 3040-3 ####[facility] LABCLIA [id number] [place], [place] [address] [place] [address] [facility] ALP [Catalytic activity/Vol] 68 U/L Normal 38-113 [facility] Comment on above: Order Comment: Speci men Type: BLOOD SPECIMENOrdering Facility: [facility] Address: [address] [place] [address] Performed By: #### 2 4323-8, 3040-3 ####[facility] [place] LABCLIA [id number] [place] [address] [place] ALT With P-5'-P [Catalytic activity/Vol] 16 U/L Normal 10-54 [facility] Comment on above: Order Comment: Speci men Type: BLOOD SPECIMENOrdering Facility: [facility] Address: [address] [place] [address] Performed By: #### 2 4323-8, 3040-3 ####[facility] LABCLIA [id number] [place] [address] [place] Anion gap [Moles/Vol] 12 mmol/L Normal 8-15 [facility] Comment on above: Order Comment: Speci men Type: BLOOD SPECIMENOrdering Facility: [facility] Address: [address] [place] [address] Performed By: #### 2 4323-8, 3040-3 ####[facility] [place] LABCLIA [id number] [place] [address] [place] AST With P-5'-P [Catalytic activity/Vol] 18 U/L Normal 14-40 [facility] Comment on above: Order Comment: Speci men Type: BLOOD SPECIMENOrdering Facility: [facility] Address: [address] [place] [address] Performed By: #### 2 4323-8, 3040-3 ####[facility] [place] LABCLIA [id number] [place] [address] [place] Bilirubin [Mass/Vol] 4.2 mg/dL High 0.2-1.3 [facility] Comment on above: Order Comment: Speci men Type: BLOOD SPECIMENOrdering Facility: [facility] Address: [address] [place] [address] Performed By: #### 2 4323-8, 3040-3 ####[facility] [place] LABCLIA [id number] [place] [address] [place] Calcium [Mass/Vol] 9.8 mg/dL Normal 8.5-10.2 [facility] Comment on above: Order Comment: Speci men Type: BLOOD SPECIMENOrdering Facility: [facility] Address: [address] [place] [address] Performed By: #### 2 4323-8, 3040-3 ####[facility] [place] LABCLIA [id number] [place] [address] [place] Chloride [Moles/Vol] 105 mmol/L Normal 98-107 [facility] Comment on above: Order Comment: Speci men Type: BLOOD SPECIMENOrdering Facility: [facility] Address: [address] [place] [address] Performed By: #### 2 4323-8, 3040-3 ####[facility] [place] LABCLIA [id number] [place] [address] [facility] CO2 [Moles/Vol] 24 mmol/L Normal 22-30 [facility] Comment on above: Order Comment: Speci men Type: BLOOD SPECIMENOrdering Facility: [facility] Address: [address] [place] [address] Performed By: #### 2 4323-8, 0-3 ####[facility] [place] LABCLIA [id number] [place] [address] [facility] Creatinine [Mass/Vol] 1.54 mg/dL High 0.73-1.22 [facility] Comment on above: Order Comment: Speci men Type: BLOOD SPECIMENOrdering Facility: [facility] Address: [address] [place] [address] Performed By: #### 2 4323-8, 3039-3 ####[facility] [place] LABCLIA [id number] [place] [address] [facility] Creatinine and Glomerular filtration rate.predicted panel (S/P/Bld) 48 mL/min/1.73m??? Low >=60 [facility] Comment on above: Order Comment: Speci men Type: BLOOD SPECIMENOrdering Facility: [facility] Address: [address] [place] [address] Result Comment: Caitlin mated Glomerular Filtration Rate (eGFR) is calculated using the 2020 CKD-EPI creatinine equation. This equation utilizes serum creatinine, sex, and age as parameters. The creatinine assay has traceable calibration to isotope dilution-mass spectrometry. Refer to KDIGO guidelines for clinical interpretation. In patients with unstable renal function, e.g. those with acute kidney injury, the eGFR may not accurately reflect actual GFR. Performed By: #### 2 4323-8, 3040-3 ####[facility] LABCLIA [id number] [place] [address] [place] Glucose [Mass/Vol] 188 mg/dL High 74-99 [facility] Comment on above: Order Comment: Speci men Type: BLOOD SPECIMENOrdering Facility: [facility] Address: [address] [place] [address] Result Comment: The [place] Diabetes Association (ADA) provides guidance for cutoff values for fasting glucose and random glucose. The ADA defines fasting as no caloric intake for at least 8 hours. Fasting plasma glucose results between 100 to 125 mg/dL indicate increased risk for diabetes (prediabetes). Fasting plasma glucose results greater than or equal to 126 mg/dL meet the criteria for diagnosis of diabetes. In the absence of unequivocal hyperglycemia, results should be confirmed by repeat testing. In a patient with classic symptoms of hyperglycemia or hyperglycemic crisis, random plasma glucose results greater than or equal to 200 mg/dL meet the criteria for diagnosis of diabetes. Reference: Standards of Medical Care in Diabetes 2016, [place] Diabetes Association. Diabetes Care. 2016.39(Suppl 1). Performed By: #### 2 4323-8, 3039-3 ####[facility] LABCLIA [id number] [place] [address] [place] Potassium [Moles/Vol] 4.3 mmol/L Normal 3.7-5.1 [facility] Comment on above: Order Comment: Nikki hankins Type: BLOOD SPECIMENOrdering Facility: [facility] Address: [address] [place] [address] Performed By: #### 2 4323-8, 3039-3 ####[facility] LABCL[facility] [id number] [place] [address] [place] Protein [Mass/Vol] 7.2 g/dL Normal 6.3-8.0 [facility] Comment on above: Order Comment: Romuloi men Type: BLOOD SPECIMENOrdering Facility: [facility] Address: [address] [place] [address] Performed By: #### 2 4323-8, 0-3 ####[facility] LABCL[facility] [id number] [place] [address] [place] Sodium [Moles/Vol] 141 mmol/L Normal 136-144 [facility] Comment on above: Order Comment: Speci men Type: BLOOD SPECIMENOrdering Facility: [facility] Address: [address] [place], [place] [id number] Performed By: #### 2 4323-8, 3040-3 ####[facility] LABCLIA [id number] [place] [address] [place] Urea nitrogen [Mass/Vol] 25 mg/dL High 9-24 [facility] Comment on above: Order Comment: Speci men Type: BLOOD SPECIMENOrdering Facility: [facility] Address: [address] [place] [address] Performed By: #### 2 4323-8, 3040-3 ####[facility] LABCLIA [id number] [place] [address] [facility] ED NOTEon 10-16-2023 ED NOTE HNO ID: [id number] Author: EMMANUEL REYNA RN Service: Emergency Medicine Author Type: Registered Nurse Type: ED Notes Filed: 10/16/2023 22:05 Note Text: Patient comes in stating a hernia to umbilical area became larger and tender today while straining to have a BM around 1915 tonight. Patient states intermittent nausea and vomiting x1. Patient painful with assessment of abdomen. Ice applied. VS as charted. Patient denies taking any of his home meds today. NAD. Call light in reach. Normal [facility] Lactate (Bld) [Moles/Vol]on 10-16-2023 Lactate [Moles/Vol] 2.0 mmol/L Normal 0.5-2.2 [facility] Comment on above: Order Comment: Speci men Type: BLOOD SPECIMENOrdering Facility: [facility] Address: [address] [place] [address] Performed By: #### 3 2693-4 ####[facility] [place] LABCLIA [id number] [place] [address] [place] Lipase SerPl-cCncon 10-16-19 24 Lipase [Catalytic activity/Vol] 18 U/L Normal 16-61 [facility] Comment on above: Order Comment: Speci men Type: BLOOD SPECIMENOrdering Facility: [facility] Address: [address], [place] [address] Performed By: #### 2 4323-8, 3040-3 ####[facility] [place] LABCLIA [id number] [place] [address] [facility] CNOVon 10-02-2023 CNOV Office Visit (CARDMN ) LC GRUBBS ([id number]) 1950 M Date Time Provider Department 10/02/23 2:45 PM WALI BRAVO CARDMN During your visit today, we recorded the following information about you: Pulse Blood pressure Weight Height 68/minute 161/87 129.1 kg 1.753 m Wali Bravo MD 10/02/2023 3:13 PM Signed [facility] Department of Cardiovascular Medicine SECTION OF CARDIAC PACING and ELECTROPHYSIOLOGY OUTPATIENT VISIT DATE October 02, 2023 OUTPATIENT VISIT TYPE NEW PRIMARY CARE PHYSICIAN: Marciano Weaver (Ac) [address] [place] [address] REFERRING PHYSICIAN: SELF CHIEF COMPLAINT: INCINERATOR ATTENDANT-D AF HISTORY OF PRESENT ILLNESS/NURSING INTAKE NOTE: Mr. Grubbs is a 72 year old male who presents today for device and arrhythmia management. He had a PMH of asthma, atrial fibrillation (s/p cardioversion 2015; sotolol AND eliquis), CHF s/p INCINERATOR ATTENDANT-D 04/11/2011, VT, long QT, COPD, depression, nonobstructive CAD, HLD, HTN, obesity (BMI 45.5) status post bariatric surgery 2019, diabetes and ARMANDO on CPAP. He had a cryo PVAI 06/30/2023. They are here to re-establish care as their previous provider is no longer covered by their insurance. He has been doing well since his ablation. He reports his previous burden was around 80%. He denies chest pain, shortness of breath, orthopnea, cough, palpitations, PND, lightheadedness or syncope. He has never had any therapies from his device. CHADS VASC: 5 (age, CHF, CAD, HTN, DM) PAST MEDICAL HISTORY No date: Asthma No date: Atrial fibrillation ([facility]) Comment: S/P successful cardioversion in 2016; maintained on Sotolol and Eliquis No date: Cardiac defibrillator in place Comment: April 2011 No date: CHF (congestive heart failure) ([facility]) Comment: Class III No date: Depression No date: Diabetes mellitus ([facility]) 08/2019: H/O bariatric surgery No date: Hyperlipidemia No date: Hypertension No date: Kidney stone No date: Morbid obesity ([facility]) 2012: Non-ischemic cardiomyopathy ([facility]) Comment: Biventricular pacing device/defibrillator placed; EF recovered to 65% in 2016 No date: ARMANDO (obstructive sleep apnea) Comment: CPAPPAST SURGICAL HISTORY 06/30/2023: ABLATION A-FIB BY PVI 07/2016: CARDIAC CATH Comment: done for positive stress test; Mild CAD of LAD, Circumflex, and RCA; EF 40-45% 2016: CARDIOVERSION Comment: Successful cardioversion of atrial fibrillation No date: COLONOSCOPY Comment: maybe 10 yrs ago 12/20/2018: DEFIBRILLATOR SURGERY Comment: April 2011 09/03/2019: EGD Comment: GASTRIC WALL TISSUE WITH MILD REACTIVE GASTROPATHY 01/07/2020: EGD EUS 03/04/2014: ELBOW Comment: reconstructed elbow 09/03/2019: LAP SLEEVE GASTRECTOMY Comment: hernia repair, lysis of adhesions and intraoperative EGD 07/01/2020: LIVER BIOPSY No date: PACEMAKER IMPLANT Comment: april 2011 - [facility] 11/2017: REMOVAL GALLBLADDER 1960's: TONSILLECTOMY HX No date: TOOTH EXTRACTION SOCIAL HISTORY Social History Tobacco Use Smoking status: Never Smokeless tobacco: Never Vaping Use Vaping status: Never Used Substance Use Topics Alcohol use: No Drug use: No FAMILY HISTORY Problem Relation Age of Onset Cancer Father lung Cancer Mother kidney, bone other (myocardial infarction) Sister Colon Cancer No Family History ALLERGIES: ALLERGIES Allergen Reactions Avelox [Moxifloxaci* Hives MEDICATIONS: apixaban (ELIQUIS) 5 mg tab(s) Take 5 mg by mouth two times a day. flash glucose scanning reader ([employer] HoldingsSTYLE CASSANDRA 2 READER) metFORMIN ER (GLUCOPHAGE XR) 500 mg 24 hr tablet Take 3 tablets by mouth once daily. Patient may take 2 pills with breakfast and one with dinner dulaglutide (TRULICITY) 1.5 mg/0.5 mL pen injector Inject 1.5 mg subcutaneously one time a week. CPAP Please lower PAP to 15/11 cmH2O. Please send us 2 week download at new pressure. 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 Also please refit patient's dreamwear FFM - the headgear/tubing is likely one size too small and thus pulling up on nose through the night. DME = [facility] carvedilol (COREG) 6.25 mg tablet Take 3.125 mg by mouth twice daily with meals. furosemide (LASIX) 20 mg tablet Take 20 mg by mouth once daily. capsaicin (ZOSTRIX) 0.025 % cream Apply to affected area three times daily. Cyanocobalamin 1,000 mcg subl Dissolve 1 tablet under the tongue once daily. CPAP Please adjust bilevel to 17/13 cmH2O and turn off backup rate. Please provide download in 2-3 weeks. Please fit with dreamwear full face mask (under nose - med frame, large cushion). ADVAIR DISKUS 500-50 m (more content not included)... Normal [facility] ECG COMPLETEon 10-02-2023 ECG COMPLETE Ventricular Rate : 6 8 BPM Atrial Rate : 68 BPM P-R Interval : 158 ms QRS Duration : 144 ms Q-T Interval : 488 ms QTC Calculation(Bazett) : 518 ms Calculated P Irving : 85 degrees Calculated R Irving : 166 degrees Calculated T Irving : 53 degrees ATRIAL-SENSED VENTRICULAR-PACED RHYTHM WITH OCCASIONAL PREMATURE VENTRICULAR COMPLEXES BIVENTRICULAR PACEMAKER DETECTED ABNORMAL ECG Confirmed by MD MABEL, PhD, LAQUITA ([id number]) on 10/30/2023 9:30:21 AM NAME : LC GRUBBS PID : [id number] : 1950 Gender : Male Race : ORD : [id number] Procedure Date : Oct 02 2023 13:23:38 Edit Date : Oct 30 2023 09:30:26 Diagnosis: ATRIAL-SENSED VENTRICULAR-PACED RHYTHM WITH OCCASIONAL PREMATURE VENTRICULAR COMPLEXES BIVENTRICULAR PACEMAKER DETECTED ABNORMAL ECG Confirmed by MD MABEL, PhD, LAQUITA ([id number]) on 10/30/2023 9:30:21 AM Test Reason : Location : 314 : [facility] J1-4 Overread By : MD MABEL, PhD,LAQUITA Edited By : MD MABEL, PhD,LAQUITA Referred By : WALI BRAVO Acquired by : GEORGE FONTAINE [facility] L/S Spine Comp/w Bending Vie wson 09-26-2023 L/S Spine Comp/w Bending Views [facility] [address] [place] [address] [id number] L/S Spine Comp/w Bending Views MR#: [id number] Acct: [id number] Name: LC GRUBBS Rep #: [id number] : 1950 M 72 From: Leonila Wilder PCP: Dr. Marciano Weaver MD Status: [facility] Study: L/S Spine Comp/w Bending Views Date of Exam: 0 09/26/23 Exam# [id number] Ordering Dr: Murphy Matson MD [id number] INDICATION: PAIN EXAMINATION/TECHNIQUE: X-RAY - XR Spine Lumbar Comp W/ Bending Min 6 Views COMPARISON: X-rays lumbar spine 04/19/2022 FINDINGS: The vertebral bodies are normal in height. No definite fracture demonstrated. No subluxation. Disc space narrowing and osteophytes at all levels. Facet arthropathy most pronounced at L3-4 through L5-S1. No paravertebral soft tissue mass identified. Flexion/extension: Suboptimal flexion. No subluxation with flexion or extension. RAD/L/S Spine Comp/w Bending Views IMPRESSION: Extensive degenerative changes. No significant change compared to prior. Electronically Signed: Leonila Honeycutt MD at 8:16 EDT , CC: Dr. Marciano Weaver MD; Dr. Murphy Matson MD Lining Strap Closer: Signed Normal [facility] Pulmonary Visit Reporton Pulmonary Visit Report [facility] [place] [address] [place] [address] OFFICE VISIT Date of Service: 09/26/23 MR#: [id number] Acct: [id number] Name: LC GRUBBS Rep #: [id number] : 1950 Provider: ROSITA Corral Age/Sex: 72/M [place] [facility] Status: Signed Assessment and Plan Assessment and Plan (1) ARMANDO (obstructive sleep apnea): Status: Chronic Comment: In March 2020 to 17/13 cmH2O (22/12 cm of water, backup rate of 16 (original order)) Plan: He is using and benefiting from Pap therapy. No indication for titration study at this time. Continue to encourage weight loss. Contact the office for any new or worsening symptoms in the meantime. Follow-up in 1 year. (2) Asthma: Status: Chronic Qualifiers: Asthma complication type: uncomplicated Asthma persistence: persistent Asthma severity: mild Qualified Code(s): J45.30 - Mild persistent asthma, uncomplicated Plan: Stable. Asymptomatic at this time. Not requiring any maintenance medications. (3) Morbid (severe) obesity due to excess calories: Status: Chronic Plan: Continue to encourage weight loss. Plan Details Goals Barriers: Goals Decrease spasm Improve ROM Decrease pain Barriers DDD Obesity Compression fx L3 Follow Up: 1 Year (csm) HPI 1 Y FU Chief Complaint: Routine follow-up HPI Comments Details: This patient presents to the office today for follow-up of his asthma and obstructive sleep apnea. He is ambulatory and currently on room air. He is accompanied today by his . He has not recently been seen in the ED or urgent care for any respiratory illness. He has not required any antibiotics or prednisone for any breathing problems. He denies any difficulty with shortness of breath. He denies any cough, sputum production or hemoptysis. He denies any wheezing, chest tightness, chest pain or palpitations. He also denies any fever, chills or body aches. He reports utilizing his PAP device every night. He reports feeling rested with his pap machine. He is not having difficulty with mask leaks or dry mouth. He denies excessive nocturia. He is not having morning headaches. Compliance report for the past 30 days shows 97% compliance with an average use of 7 hours and 9 minutes per night. Current setting is BiPAP 27/01 with a backup rate of 16 breaths/min. Residual AHI 2.8 events per hour. It does appear as though leaks continue to be an issue. Intake Vital Signs 09/27/22 12:49 11/12/22 18:40 09/26/23 10:03 Height 5 ft 9 in 5 ft 9 in 5 ft 9 in Weight: 285 lb BMI 42.0 BP 166/94 H Blood Pressure Location Lt brachial Position Sitting Respiration 20 H Pulse 71 Pulse Source Monitor Temp 97.2 F L Temperature Source Temporal Artery Pulse Oximetry (%) 96 Oxygen Delivery Method room air Intake Visit Reasons: 1 Y FU [employer] Driver Required: No DME Vendor: cpap- [employer] Accompanied by: Is patient in pain?: No Allergies moxifloxacin HCl (From Avelox) Allergy (Verified 09/26/23 12:41) Hives Medications ???Medication ???Instructions ???Recorded ???Confirmed ???Type bupropion HCl 150 mg 24 hr tablet, 150 mg PO BID depression 05/15/15 09/26/23 History extended release atorvastatin 20 mg tablet 20 mg PO DAILY cholesterol 01/26/17 09/26/23 History tramadol 50 mg tablet 50 mg PO BID pain 03/01/18 09/26/23 History gabapentin 600 mg tablet 600 mg PO BIDCM nerve pain 11/12/18 09/26/23 History cyanocobalamin (vitamin B-12) 1,000 mcg PO DAILY vitamin 11/22/18 09/26/23 History 1,000 mcg capsule fluticasone furoate 100 1 puff inhalation PRN PRN Sob /Or 11/22/18 09/26/23 History mcg/actuation blister powder for Wheezing inhalation potassium citrate 5 mEq (540 mg) 5 meq PO DAILY 09/17/19 09/26/23 History tablet,extended release aspirin 81 mg tablet,delayed 81 mg PO DAILY 11/18/19 09/26/23 History release (Adult Low Dose Aspirin) furosemide 40 mg tablet 20 mg PO DAILY diuretic 11/18/19 09/26/23 History montelukast 10 mg tablet 10 mg PO DAILY 11/18/19 09/26/23 History apixaban 5 mg tablet (Eliquis) 5 mg PO BID blood thinner #180 tabs 12/25/19 09/26/23 Rx magnesium aspart,citrate,oxide 400 mg PO BID 12/26/19 09/26/23 History multivitamin,tx-iron-m inerals 27 2 tablet PO DAILY vitamin 04/27/20 09/26/23 History mg-0.4 mg tablet allopurinol 100 mg tablet 100 mg PO DAILY 12/25/20 09/26/23 History alpha lipoic acid 200 mg capsule 200 mg PO DAILY 12/25/20 09/26/23 History tamsulosin 0.4 mg capsule 0.4 mg PO DAILY 12/25/20 09/26/23 History metformin 500 mg tablet,extended 1,000 mg PO DAILY 06/28/21 09/26/23 History release 24hr (osmotic) dulaglutide 1.5 mg/0.5 mL ml subcut 01/06/22 09/26/23 History subcutaneous pen injector (Trulicity) carvedilol 12.5 m (more content not included)... Normal [facility] LABORATORYOrdered By: Zacarias Kumari on 07-01-2023 Blood Glucose Testing Reason Routine (07/01/23 11:19 AM) [facility] Work Phone: Glucose [Mass/Vol] 96 mg/dL Normal 82 - 115 mg/dL [facility] Work Phone: Blood Glucose Testing Reason Routine (07/01/23 9:07 AM) [facility] Work Phone: Glucose [Mass/Vol] 151 mg/dL High 82 - 115 mg/dL [facility] Work Phone: LABORATORYOrdered By: Smitha Weaver on 07-01-2023 Glucose [Mass/Vol] 151 mg/dL [facility] Work Phone: Time of Stated Blood Glucose [id number] [facility] Work Phone: LABORATORYOrdered By: Ladan Durbin on 07-01-2023 Glucose [Mass/Vol] 118 mg/dL [facility] Work Phone: Time of Stated Blood Glucose [phone] [facility] Work Phone: .Auto Diffon 06-30-2023 Basophil, Absolute 0.1 10 3/mcL Normal 0.0-0.3 [facility] ([place]) Comment on above: Performed By: #### A DIFF, BMP, ANEU, GFR, ABSGEL, ABOGEL, CBC #### [address] [address] Basophils/100 WBC (Bld) 1.2 % Normal 0.0-2.5 A [facility] ([place]) Comment on above: Performed By: #### A DIFF, BMP, ANEU, GFR, ABSGEL, ABOGEL, CBC #### [address] [address] Eosinophil, Absolute 0.2 10 3/mcL Normal 0.0-0.7 [facility] ([place]) Comment on above: Performed By: #### A DIFF, BMP, ANEU, GFR, ABSGEL, ABOGEL, CBC #### [address] [address] Eosinophils/100 WBC (Bld) 2.9 % Normal 0.0-6.0 [facility] ([place]) Comment on above: Performed By: #### A DIFF, BMP, ANEU, GFR, ABSGEL, ABOGEL, CBC #### [address] [address] Lymphocyte, Absolute 1.1 10 3/mcL Normal 0.9-4.3 [facility] ([place]) Comment on above: Performed By: #### A DIFF, BMP, ANEU, GFR, ABSGEL, ABOGEL, CBC #### [address] [address] Lymphocytes/100 WBC (Bld) 16.7 % Low 20.0-40.0 [facility] ([place]) Comment on above: Performed By: #### A DIFF, BMP, ANEU, GFR, ABSGEL, ABOGEL, CBC #### [address] [address] Monocyte, Absolute 0.5 10 3/mcL Normal 0.1-1.4 [facility] ([place]) Comment on above: Performed By: #### A DIFF, BMP, ANEU, GFR, ABSGEL, ABOGEL, CBC #### [address] [address] Monocytes/100 WBC (Bld) 7.5 % Normal 2.0-13.0 A [facility] ([place]) Comment on above: Performed By: #### A DIFF, BMP, ANEU, GFR, ABSGEL, ABOGEL, CBC #### [address] [address] Neutrophils/100 WBC (Bld) 71.7 % Normal 50.0-75.0 [facility] ([place]) Comment on above: Performed By: #### A DIFF, BMP, ANEU, GFR, ABSGEL, ABOGEL, CBC #### [address] [address] .GFRon 06-30-2023 GFR >60 Normal [facility] ([place]) Comment on above: Result Comment: GFR Population mean for , Non- Americans Ages 20-29 = 116 mL/min/1.73 sq.m. Ages 30-39 = 107 mL/min/1.73 sq.m. Ages 40-49 = 99 mL/min/1.73 sq.m. Ages 50-59 = 93 mL/min/1.73 sq.m. Ages 60-69 = 85 mL/min/1.73 sq.m. Ages 70+ = 75 mL/min/1.73 sq.m. Chronic Kidney Disease: Less than 60 mL/min/1.73 square meters End Stage Renal Disease: Less than 15 mL/min/1.73 square meters Performed By: #### A DIFF, BMP, ANEU, GFR, ABSGEL, ABOGEL, CBC #### [address] [address] GFR Non- 52 ml/min/1.73sqm Normal [facility] ([place]) Comment on above: Result Comment: GFR Population mean for , Non- Americans Ages 20-29 = 116 mL/min/1.73 sq.m. Ages 30-39 = 107 mL/min/1.73 sq.m. Ages 40-49 = 99 mL/min/1.73 sq.m. Ages 50-59 = 93 mL/min/1.73 sq.m. Ages 60-69 = 85 mL/min/1.73 sq.m. Ages 70+ = 75 mL/min/1.73 sq.m. Chronic Kidney Disease: Less than 60 mL/min/1.73 square meters End Stage Renal Disease: Less than 15 mL/min/1.73 square meters Performed By: #### A DIFF, BMP, ANEU, GFR, ABSGEL, ABOGEL, CBC #### [address] [address] .NEUABSon 06-30-2023 Neutrophil, Absolute 4.5 10 3/mcL Normal 2.3-8.1 [facility] ([place]) Comment on above: Performed By: #### A DIFF, BMP, ANEU, GFR, ABSGEL, ABOGEL, CBC #### [address] [address] ABO/Rh (Gel)on 06-30-2023 ABO/Rh Interp Positive Invalid Interpretation Code [facility] ([place]) Comment on above: Performed By: #### A DIFF, BMP, ANEU, GFR, ABSGEL, ABOGEL, CBC #### [address] [address] ABS (Gel)on 06-30-2023 ABSC Interp (Gel) Negative Normal [facility] ([place]) Comment on above: Performed By: #### A DIFF, BMP, ANEU, GFR, ABSGEL, ABOGEL, CBC #### [address] [address] BMPon 06-30-2023 BUN/Creatinine Ratio 14.2 ratio Normal 10.0-22.0 [facility] ([place]) Comment on above: Performed By: #### A DIFF, BMP, ANEU, GFR, ABSGEL, ABOGEL, CBC #### [address] [address] Calcium [Mass/Vol] 8.8 mg/dL Normal 8.7-10.4 [facility] ([place]) Comment on above: Performed By: #### A DIFF, BMP, ANEU, GFR, ABSGEL, ABOGEL, CBC #### [address] [address] Chloride [Moles/Vol] 112 mmol/L High 98-110 [facility] ([place]) Comment on above: Performed By: #### A DIFF, BMP, ANEU, GFR, ABSGEL, ABOGEL, CBC #### [address] [address] CO2 [Moles/Vol] 26 mmol/L Normal 22-32 [facility] ([place]) Comment on above: Performed By: #### A DIFF, BMP, ANEU, GFR, ABSGEL, ABOGEL, CBC #### [address] [address] Creatinine [Mass/Vol] 1.34 mg/dL Normal 0.60-1.40 [facility] ([place]) Comment on above: Performed By: #### A DIFF, BMP, ANEU, GFR, ABSGEL, ABOGEL, CBC #### [address] [address] Electrolyte Balance 6.0 mEq/L Normal 4.0-15.0 [facility] ([place]) Comment on above: Performed By: #### A DIFF, BMP, ANEU, GFR, ABSGEL, ABOGEL, CBC #### [address] [address] Glucose [Mass/Vol] 104 mg/dL Normal 82-115 [facility] ([place]) Comment on above: Performed By: #### A DIFF, BMP, ANEU, GFR, ABSGEL, ABOGEL, CBC #### [address] [address] Potassium [Moles/Vol] 3.8 mmol/L Normal 3.5-5.0 [facility] ([place]) Comment on above: Performed By: #### A DIFF, BMP, ANEU, GFR, ABSGEL, ABOGEL, CBC #### [place] [address] Sodium [Moles/Vol] 144 mmol/L Normal 136-145 [facility] ([place]) Comment on above: Performed By: #### A DIFF, BMP, ANEU, GFR, ABSGEL, ABOGEL, CBC #### [place] [address] Urea nitrogen [Mass/Vol] 19.0 mg/dL Normal 8.0-22.0 [facility] ([place]) Comment on above: Performed By: #### A DIFF, BMP, ANEU, GFR, ABSGEL, ABOGEL, CBC #### [place] [address] CBCon 06-30-2023 Erythrocyte distribution width (RBC) [Ratio] 16.8 % High 11.5-15.5 [facility] ([place]) Comment on above: Performed By: #### A DIFF, BMP, ANEU, GFR, ABSGEL, ABOGEL, CBC #### [place] [address] Hematocrit (Bld) [Volume fraction] 40.9 % Normal 40.0-52.0 [facility] ([place] Comment on above: Performed By: #### A DIFF, BMP, ANEU, GFR, ABSGEL, ABOGEL, CBC #### [place] [address] Hgb 13.8 G/dL Normal 13.0-17.5 [facility] ([place] Comment on above: Performed By: #### A DIFF, BMP, ANEU, GFR, ABSGEL, ABOGEL, CBC #### [place] [address] MCH (RBC) [Entitic mass] 27.6 pg Normal 27.0-33.0 [facility] ([place] Comment on above: Performed By: #### A DIFF, BMP, ANEU, GFR, ABSGEL, ABOGEL, CBC #### [place] [id number] MCHC 33.8 G/dL Normal 32.0-36.0 [facility] ([place] Comment on above: Performed By: #### A DIFF, BMP, ANEU, GFR, ABSGEL, ABOGEL, CBC #### [place] [address] MCV (RBC) [Entitic vol] 81.6 fL Normal 81.0-100.0 A [facility] ([place]) Comment on above: Performed By: #### A DIFF, BMP, ANEU, GFR, ABSGEL, ABOGEL, CBC #### [place] [address] Platelet 140 10 3/mcL Low 150-450 [facility] ([place] Comment on above: Performed By: #### A DIFF, BMP, ANEU, GFR, ABSGEL, ABOGEL, CBC #### [place] [address] Platelet mean volume (Bld) [Entitic vol] 8.3 fL Normal 6.4-10.5 [facility] ([place] Comment on above: Performed By: #### A DIFF, BMP, ANEU, GFR, ABSGEL, ABOGEL, CBC #### [place] [address] RBC 5.01 10 6/mcL Normal 4.50-6.00 [facility] ([place] Comment on above: Performed By: #### A DIFF, BMP, ANEU, GFR, ABSGEL, ABOGEL, CBC #### [place] [address] WBC 6.3 10 3/mcL Normal 4.5-10.8 [facility] ([place] Comment on above: Performed By: #### A DIFF, BMP, ANEU, GFR, ABSGEL, ABOGEL, CBC #### [place] [address] LABORATORYOrdered By: Aileen Tran on 06-30-2023 Blood Glucose Testing Reason Routine (06/30/23 10:10 PM) [facility] Work Phone: Glucose [Mass/Vol] 155 mg/dL High 82 - 115 mg/dL [facility] Work Phone: LABORATORYOrdered By: Erika fernandes on 06-30-2023 ABO and Rh group Nom (Bld) Blood group A Rh(D) positive Invalid Interpretation Code BB Auto SS Blood group antibody screen Ql Negative ABSC (06/30/23 9:23 AM) Normal BB Auto SS LABORATORYOrdered By: SYSTEM SYSTEM on 06-30-2023 Basophils (Bld) [#/Vol] 0.1 103/mcL Normal 0.0 - 0.3 10^3/mcL AH Workflow SS Basophils/100 WBC (Bld) 1.2 % Normal 0.0 - 2.5 % Workflow SS Calcium [Mass/Vol] 8.8 mg/dL Normal 8.7 - 10. 4 mg/dL ADM SS Chloride [Moles/Vol] 112 mmol/L High 98 - 11 0 mEq/L ADM SS CO2 [Moles/Vol] 26 mmol/L Normal 22 - 32 mEq/L ADM SS Creatinine [Mass/Vol] 1.34 mg/dL Normal 0.60 - 1.40 mg/dL ADM SS Electrolyte Balance 6.0 mEq/L Normal 4.0 - 15 .0 mEq/L AH ADM SS Eosinophils (Bld) [#/Vol] 0.2 103/mcL Normal 0.0 - 0.7 10^3/mcL AH Workflow SS Eosinophils/100 WBC (Bld) 2.9 % Normal 0.0 - 6.0 % AH Workflow SS Erythrocyte distribution width (RBC) [Ratio] 16.8 % High 11.5 - 15.5 % Workflow SS GFR/1.73 sq M.predicted among blacks MDRD (S/P/Bld) [Vol rate/Area] ml/min/1.73sqm Invalid Interpretation Code Chemistry S Comment on above: Interpretive Data: GFR Population mean for , Non- Americans Ages 20-29 = 116 mL/min/1.73 sq.m. Ages 30-39 = 107 mL/min/1.73 sq.m. Ages 40-49 = 99 mL/min/1.73 sq.m. Ages 50-59 = 93 mL/min/1.73 sq.m. Ages 60-69 = 85 mL/min/1.73 sq.m. Ages 70+ = 75 mL/min/1.73 sq.m. Chronic Kidney Disease: Less than 60 mL/min/1.73 square meters End Stage Renal Disease: Less than 15 mL/min/1.73 square meters GFR/1.73 sq M.predicted among non-blacks MDRD (S/P/Bld) [Vol rate/Area] 52 ml/min/1.73sqm Invalid Interpretation Code Chemistry S Comment on above: Interpretive Data: GFR Population mean for , Non- Americans Ages 20-29 = 116 mL/min/1.73 sq.m. Ages 30-39 = 107 mL/min/1.73 sq.m. Ages 40-49 = 99 mL/min/1.73 sq.m. Ages 50-59 = 93 mL/min/1.73 sq.m. Ages 60-69 = 85 mL/min/1.73 sq.m. Ages 70+ = 75 mL/min/1.73 sq.m. Chronic Kidney Disease: Less than 60 mL/min/1.73 square meters End Stage Renal Disease: Less than 15 mL/min/1.73 square meters Glucose [Mass/Vol] 104 mg/dL Normal 82 - 115 mg/dL AH ADM SS Hematocrit (Bld) [Volume fraction] 40.9 % Normal 40.0 - 52.0 % AH Workflow SS Hemoglobin (Bld) [Mass/Vol] 13.8 G/dL Normal 13.0 - 17.5 G/dL AH Workflow SS Lymphocytes (Bld) [#/Vol] 1.1 103/mcL Normal 0.9 - 4.3 10^3/mcL AH Workflow SS Lymphocytes/100 WBC (Bld) 16.7 % Low 20.0 - 40.0 % AH Workflow SS MCH (RBC) [Entitic mass] 27.6 pg Normal 27.0 - 33.0 pg AH Workflow SS MCHC 33.8 G/dL Normal 32.0 - 36.0 G/dL AH Workflow SS MCV (RBC) [Entitic vol] 81.6 fL Normal 81.0 - 100.0 fL AH Workflow SS Monocytes (Bld) [#/Vol] 0.5 103/mcL Normal 0.1 - 1.4 10^3/mcL AH Workflow SS Monocytes/100 WBC (Bld) 7.5 % Normal 2.0 - 13.0 % Workflow SS Neutrophils (Bld) [#/Vol] 4.5 103/mcL Normal 2.3 - 8.1 10^3/mcL Workflow SS Neutrophils/100 WBC (Bld) 71.7 % Normal 50.0 - 75.0 % Workflow SS Platelet mean volume (Bld) [Entitic vol] 8.3 fL Normal 6.4 - 10.5 fL Workflow SS Platelets (Bld) [#/Vol] 140 103/mcL Low 150 - 450 10^3/mcL AH Workflow SS Potassium [Moles/Vol] 3.8 mmol/L Normal 3.5 - 5.0 mEq/L ADM SS RBC (Bld) [#/Vol] 5.01 106/mcL Normal 4.50 - 6.0 0 10^6/mcL Workflow SS Sodium [Moles/Vol] 144 mmol/L Normal 136 - 145 mEq/L ADM SS Urea nitrogen [Mass/Vol] 19.0 mg/dL Normal 8.0 - 22.0 mg/dL ADM SS Urea nitrogen/Creatinine [Mass ratio] 14.2 ratio Normal 10.0 - 22.0 ratio ADM SS WBC (Bld) [#/Vol] 6.3 103/mcL Normal 4.5 - 10.8 10^3/mcL Workflow SS Absolute lymphocyte countOrd ered By: Marciano Weaver on 03-23-2023 Lymphocytes Auto (Unsp spec) [#/Vol] 0.94 10*3/uL 0.83-4.51 [facility] Automated lymphocyte count a s percentage of total leukocytesOrdered By: Marciano Weaver on 03-23-2023 Lymphocytes/100 WBC Auto (Unsp spec) 14.3 % 19-41 [facility] Basophil percentageOrdered B y: Marciano Weaver on 03-23-2023 Basophils/100 WBC (Bld) 0.8 % 0-1 [facility] Bilirubin [Mass/Vol] 3.40 mg/dL 0.20-1.00 [facility] Comment on above: For patients on eltr ombopag therapy, use of Dimension Zoe TBIL is not recommended. Chloride [Moles/Vol] 110 mmol/L 98-107 [facility] Eosinophils/100 WBC (Bld) 2.4 % 0-5 [facility] Glucose [Mass/Vol] 108 mg/dL 74-106 [facility] Comment on above: Fasting Glucose resu lt from 100 to 125 mg/dL suggests IMPAIRED HOMEOSTASIS per A.D.A. criteria. Hemoglobin (Bld) [Mass/Vol] 12.6 g/dL 13.0-16.5 [facility] Monocytes/100 WBC (Bld) 8.4 % 0-10 [facility] Neutrophils (Bld) [#/Vol] 4.9 10*3/uL 2.0-7.7 [facility] Neutrophils/100 WBC (Bld) 73.6 % 47-70 [facility] Potassium [Moles/Vol] 3.7 mmol/L 3.5-5.1 [facility] Protein [Mass/Vol] 6.7 g/dL 6.4-8.2 [facility] Sodium [Moles/Vol] 141 mmol/L 136-145 [facility] WBC (Bld) [#/Vol] 6.6 10*3/uL 4.4-11.0 [facility] Determination of erythrocyte mean corpuscular volume (MCV)Ordered By: Marciano Weaver on 03-23-2023 MCV (RBC) [Entitic vol] 87.9 fL 80-94 [facility] Erythrocyte distribution wid th ratioOrdered By: Marciano Weaver on 03-23-2023 Erythrocyte distribution width (RBC) [Ratio] 16.7 % 11.6-14.6 [facility] Erythrocyte distribution wid th standard deviationOrdered By: Marciano Weaver on 03-23-2023 Erythrocyte distribution width (RBC) [Entitic vol] 52.9 fL 35.1-43.9 [facility] Hematocrit Auto (Bld) [Volum e fraction]Ordered By: Marciano Weaver on 03-23-2023 Hematocrit (Bld) [Volume fraction] 39.4 % 40-54 [facility] Hemoglobin in reticulocytes (mass per reticulocyte)Ordered By: Marciano Weaver on 03-23-2023 Hemoglobin (Reticulocytes) [Entitic mass] 30.4 pg 30-35 [facility] Immature granulocytes/100 WB C Auto (Bld)Ordered By: Marciano Weaver on 03-23-2023 Immature granulocytes/100 WBC (Bld) 0.500 % 0.0-0.9 [facility] Comment on above: IG% - Immature Granu locytes (promyelocytes, myelocytes and metamyelocytes) > 1% indicates that a LEFT SHIFT is Present. Laboratory - Chemistry and C hemistry - challengeOrdered By: Marciano Weaver on 03-23-2023 Albumin/Globulin [Mass ratio] 1.2 {ratio} 0.9-2.4 [facility] ALP [Catalytic activity/Vol] 53 U/L 45-117 [facility] ALT [Catalytic activity/Vol] 17 U/L 16-61 [facility] CO2 [Moles/Vol] 26.0 mmol/L 21.0-32.0 [facility] Globulin (S) [Mass/Vol] 3.1 g/dL 2.2-4.2 [facility] Urea nitrogen/Creatinine [Mass ratio] 13.8 mg/mg 10-20 [facility] Laboratory - Hematology and Cell countsOrdered By: Marciano Weaver on 03-23-2023 MCH (RBC) [Entitic mass] 28.1 pg 27.0-32.0 [facility] MCHC (RBC) [Mass/Vol] 32.0 g/dL 32-36 [facility] Nucleated RBC/100 WBC (Bld) [Ratio] 0 % 0-5 [facility] Platelet mean volume (Bld) [Entitic vol] 10.1 fL 6.2-12.0 [facility] Platelets (Bld) [#/Vol] 161 10*3/uL 150-450 [facility] No Panel InformationOrdered By: Marciano Weaver on 03-23-2023 Estimated GFR (MDRD) Amer 65 mL/min >60 [facility] Comment on above: GFR Calc Estimated GFR (MDRD) Non-Af Amer 54 mL/min >60 [facility] Comment on above: Non- GFR Calc Immature Reticulocyte Fraction 21.50 % 3.00-15.90 [facility] RBC Auto (Bld) [#/Vol]Ordere d By: Marciano Weaver on 03-23-2023 RBC (Bld) [#/Vol] 4.48 10*6/uL 4.6-6.2 [facility] Reticulocytes Auto (Bld) [#/ Vol]Ordered By: Marciano Weaver on 03-23-2023 Reticulocytes/100 RBC (Bld) 4.13 % 0.5-1.5 [facility] Serum or plasma calcium montse urement (mass/volume)Ordered By: Marciano Weaver on 03-23-2023 Calcium [Mass/Vol] 8.8 mg/dL 8.5-10.1 [facility] Serum or plasma creatinine m easurement (mass/volume)Ordered By: Marciano Weaver on 03-23-2023 Creatinine [Mass/Vol] 1.38 mg/dL 0.70-1.30 [facility] Comment on above: The validity of the calculated GFR & GFRAA in patients over 70 years has not been determined. Clinical correlation is essential. Serum or plasma urea nitroge n measurement (mass/volume)Ordered By: Marciano Weaver on 03-23-2023 Urea nitrogen [Mass/Vol] 19 mg/dL 7-18 [facility] Thin prep Papanicolaou smear with manual screeningOrdered By: Marciano Weaver on 03-23-2023 Thin prep Papanicolaou smear with manual screening 3.6 g/dL 3.2-5.0 [facility] Thin prep Papanicolaou smear with manual screening 14 U/L 15-37 [facility] Thin prep Papanicolaou smear with manual screening 5 5-15 [facility] Whole blood hemoglobin A1c/t otal hemoglobin ratio (mass fraction)Ordered By: Marciano Weaver on 03-23-2023 HbA1c (Bld) [Mass fraction] 5.5 % 3.8-5.6 [facility] Comment on above: Normal < 5.7 % Predi abetic 5.7 - 6.4 % Diabetic >or= 6.5 % Please note range changes. Absolute lymphocyte countOrd ered By: Marciano Weaver on 01-02-2023 Lymphocytes Auto (Unsp spec) [#/Vol] 1.44 10*3/uL 0.83-4.51 [facility] Basophil percentageOrdered B y: Marciano Weaver on 01-02-2023 Basophils/100 WBC (Bld) 0.9 % 0-1 [facility] Bilirubin [Mass/Vol] 2.70 mg/dL 0.20-1.00 [facility] Comment on above: For patients on eltr ombopag therapy, use of Dimension Zoe TBIL is not recommended. Chloride [Moles/Vol] 110 mmol/L 98-107 [facility] Cholesterol [Mass/Vol] 126 mg/dL <200 [facility] Comment on above: <200 mg/dL Desirable 200-240 mg/dL Borderline >240 mg/dL High Risk Eosinophils/100 WBC (Bld) 3.4 % 0-5 [facility] Glucose [Mass/Vol] 140 mg/dL 74-106 [facility] Comment on above: Fasting Glucose resu lt greater than or equal to 126 mg/dL suggests DIABETES MELLITUS per A.D.A. criteria. Neutrophils (Bld) [#/Vol] 5.4 10*3/uL 2.0-7.7 [facility] Neutrophils/100 WBC (Bld) 67.4 % 47-70 [facility] Potassium [Moles/Vol] 4.1 mmol/L 3.5-5.1 [facility] Protein [Mass/Vol] 7.2 g/dL 6.4-8.2 [facility] Sodium [Moles/Vol] 142 mmol/L 136-145 [facility] Triglyceride [Mass/Vol] 160 mg/dL <199 [facility] Comment on above: The drugs N-Acetylcy steine and Metamizole may falsely depress this assay.Serum Triglycerides Reference Interval Normal <150 mg/dL Borderline high 150 - 199 mg/dL High 200 - 499 mg/dL Very High > or = 500 mg/dL WBC (Bld) [#/Vol] 8.0 10*3/uL 4.4-11.0 [facility] Blood erythrocytes count (nu mber/volume)Ordered By: Marciano Weaver on 01-02-2023 RBC (Bld) [#/Vol] 5.13 10*6/uL 4.6-6.2 [facility] Blood hemoglobin measurement (mass/volume)Ordered By: Marciano Weaver on 01-02-2023 Hemoglobin (Bld) [Mass/Vol] 13.8 g/dL 13.0-16.5 [facility] Blood lymphocytes/100 leukoc ytesOrdered By: Marciano Weaver on 01-02-2023 Lymphocytes/100 WBC (Bld) 18.1 % 19-41 [facility] Blood monocytes/100 leukocyt esOrdered By: Marciano Weaver on 01-02-2023 Monocytes/100 WBC (Bld) 9.4 % 0-10 [facility] Blood platelet mean volumeOr dered By: Marciano Weaver on 01-02-2023 Platelet mean volume (Bld) [Entitic vol] 10.0 fL 6.2-12.0 [facility] Determination of erythrocyte mean corpuscular volume (MCV)Ordered By: Marciano Weaver on 01-02-2023 MCV (RBC) [Entitic vol] 84.2 fL 80-94 [facility] Hematocrit Auto (Bld) [Volum e fraction]Ordered By: Marciano Weaver on 01-02-2023 Hematocrit (Bld) [Volume fraction] 43.2 % 40-54 [facility] Laboratory - Chemistry and C hemistry - challengeOrdered By: Marciano Weaver on 01-02-2023 ALP [Catalytic activity/Vol] 55 U/L 45-117 [facility] ALT [Catalytic activity/Vol] 24 U/L 16-61 [facility] CO2 [Moles/Vol] 25.0 mmol/L 21.0-32.0 [facility] Cobalamin (Vitamin B12) [Mass/Vol] 304 pg/mL 211-911 [facility] Globulin (S) [Mass/Vol] 3.6 g/dL 2.2-4.2 [facility] Magnesium [Mass/Vol] 2.3 mg/dL 1.6-2.6 [facility] Urea nitrogen/Creatinine [Mass ratio] 9.2 mg/mg 10-20 [facility] Laboratory - Hematology and Cell countsOrdered By: Marciano Weaver on 01-02-2023 Erythrocyte distribution width (RBC) [Entitic vol] 48.6 fL 35.1-43.9 [facility] Erythrocyte distribution width (RBC) [Ratio] 16.2 % 11.6-14.6 [facility] Immature granulocytes/100 WBC (Bld) 0.800 % 0.0-0.9 [facility] Comment on above: IG% - Immature Granu locytes (promyelocytes, myelocytes and metamyelocytes) > 1% indicates that a LEFT SHIFT is Present. MCH (RBC) [Entitic mass] 26.9 pg 27.0-32.0 [facility] Nucleated RBC/100 WBC (Bld) [Ratio] 0 % 0-5 [facility] MCHC Auto (RBC) [Mass/Vol]Or dered By: Marciano Weaver on 01-02-2023 MCHC (RBC) [Mass/Vol] 31.9 g/dL 32-36 [facility] No Panel InformationOrdered By: Marciano Weaver on 01-02-2023 Estimated GFR (MDRD) Amer 44 mL/min >60 [facility] Comment on above: GFR Calc Estimated GFR (MDRD) Non-Af Amer 36 mL/min >60 [facility] Comment on above: Non- GFR Calc Platelets bldOrdered By: Lila Weaver on 01-02-2023 Platelets (Bld) [#/Vol] 149 10*3/uL 150-450 [facility] Serum or plasma albumin montse urement (mass/volume)Ordered By: Marciano Weaver on 01-02-2023 Albumin [Mass/Vol] 3.6 g/dL 3.2-5.0 [facility] Serum or plasma albumin/glob ulin mass ratioOrdered By: Marciano Weaver on 01-02-2023 Albumin/Globulin [Mass ratio] 1.0 {ratio} 0.9-2.4 [facility] Serum or plasma calcium montse urement (mass/volume)Ordered By: Marciano Weaver on 01-02-2023 Calcium [Mass/Vol] 8.5 mg/dL 8.5-10.1 [facility] Serum or plasma cholesterol in HDL measurement (mass/volume)Ordered By: Marciano Weaver on 01-02-2023 Cholesterol in HDL [Mass/Vol] 27 mg/dL >40 [facility] Comment on above: The drugs N-Acetylcy steine and Metamizole may falsely depress this assay. Reference Range HDL <40 mg/dL Low HDL Cholesterol HDL >or= 60 mg/dL High HDL Cholesterol Serum or plasma cholesterol in VLDL measurement (mass/volume)Ordered By: Marciano Weaver on 01-02-2023 Cholesterol in VLDL [Mass/Vol] 32 mg/dL 5-40 [facility] Serum or plasma creatinine m easurement (mass/volume)Ordered By: Marciano Weaver on 01-02-2023 Creatinine [Mass/Vol] 1.95 mg/dL 0.70-1.30 [facility] Comment on above: The validity of the calculated GFR & GFRAA in patients over 70 years has not been determined. Clinical correlation is essential. Serum or plasma folate measu rement (mass/volume)Ordered By: Marciano Weaver on 01-02-2023 Folate [Mass/Vol] 6.00 ng/mL 3.1-55.4 [facility] Serum or plasma low density lipoprotein (LDL) cholesterol measurement (mass/volume)Ordered By: Marciano Weaver on 01-02-2023 Cholesterol in LDL [Mass/Vol] 67 mg/dL 0-130 [facility] Serum or plasma urea nitroge n measurement (mass/volume)Ordered By: Marciano Weaver on 01-02-2023 Urea nitrogen [Mass/Vol] 18 mg/dL 7-18 [facility] Serum or plasma uric acid me asurement (mass/volume)Ordered By: Marciano Weaver on 01-02-2023 Urate [Mass/Vol] 7.4 mg/dL 3.5-7.2 [facility] Comment on above: The drugs N-Acetylcy steine and Metamizole may falsely depress this assay. Thin prep Papanicolaou smear with manual screeningOrdered By: Marciano Weaver on 01-02-2023 Thin prep Papanicolaou smear with manual screening 22 U/L 15-37 [facility] Thin prep Papanicolaou smear with manual screening 7 5-15 [facility] Whole blood hemoglobin A1c/t otal hemoglobin ratio (mass fraction)Ordered By: Marciano Weaver on 01-02-2023 HbA1c (Bld) [Mass fraction] 5.5 % 3.8-5.6 [facility] Comment on above: Normal < 5.7 % Predi abetic 5.7 - 6.4 % Diabetic >or= 6.5 % Please note range changes. Absolute lymphocyte countOrd ered By: Dr. Weaver on 03-17-2022 Lymphocytes Auto (Unsp spec) [#/Vol] 0.95 10*3/uL 0.83-4.51 [facility] Basophil percentageOrdered B y: Dr. Weaver on 03-17-2022 Basophils/100 WBC (Bld) 0.6 % 0-1 [facility] Eosinophils/100 WBC (Bld) 1.4 % 0-5 [facility] Neutrophils (Bld) [#/Vol] 6.8 10*3/uL 2.0-7.7 [facility] Neutrophils/100 WBC (Bld) 75.8 % 47-70 [facility] WBC (Bld) [#/Vol] 9.0 10*3/uL 4.4-11.0 [facility] Blood erythrocytes count (nu mber/volume)Ordered By: Dr. Weaver on 03-17-2022 RBC (Bld) [#/Vol] 5.48 10*6/uL 4.6-6.2 [facility] Blood hemoglobin measurement (mass/volume)Ordered By: Dr. Weaver on 03-17-2022 Hemoglobin (Bld) [Mass/Vol] 15.0 g/dL 13.0-16.5 [facility] Blood lymphocytes/100 leukoc ytesOrdered By: Dr. Weaver on 03-17-2022 Lymphocytes/100 WBC (Bld) 10.5 % 19-41 [facility] Blood monocytes/100 leukocyt esOrdered By: Dr. Weaver on 03-17-2022 Monocytes/100 WBC (Bld) 11.4 % 0-10 [facility] Blood platelet mean volumeOr dered By: Dr. Weaver on 03-17-2022 Platelet mean volume (Bld) [Entitic vol] 9.9 fL 6.2-12.0 [facility] Determination of erythrocyte mean corpuscular volume (MCV)Ordered By: Dr. Weaver on 03-17-2022 MCV (RBC) [Entitic vol] 84.7 fL 80-94 [facility] Hematocrit Auto (Bld) [Volum e fraction]Ordered By: Dr. Weaver on 03-17-2022 Hematocrit (Bld) [Volume fraction] 46.4 % 40-54 [facility] Laboratory - Chemistry and C hemistry - challengeOrdered By: Dr. Weaver on 03-17-2022 Cobalamin (Vitamin B12) [Mass/Vol] 326 pg/mL 211-911 [facility] Magnesium [Mass/Vol] 2.2 mg/dL 1.6-2.6 [facility] Laboratory - Hematology and Cell countsOrdered By: Dr. Weaver on 03-17-2022 Erythrocyte distribution width (RBC) [Entitic vol] 47.3 fL 35.1-43.9 [facility] Erythrocyte distribution width (RBC) [Ratio] 15.4 % 11.6-14.6 [facility] Immature granulocytes/100 WBC (Bld) 0.300 % 0.0-0.9 [facility] Comment on above: IG% - Immature Granu locytes (promyelocytes, myelocytes and metamyelocytes) > 1% indicates that a LEFT SHIFT is Present. MCH (RBC) [Entitic mass] 27.4 pg 27.0-32.0 [facility] Nucleated RBC/100 WBC (Bld) [Ratio] 0 % 0-5 [facility] MCHC Auto (RBC) [Mass/Vol]Or dered By: Dr. Weaver on 03-17-2022 MCHC (RBC) [Mass/Vol] 32.3 g/dL 32-36 [facility] No Panel InformationOrdered By: Dr. Weaver on 03-17-2022 Vitamin D 25-Hydroxy 19.7 ng/mL [facility] Comment on above: Vitamin D 25(OH) Sta tus Range Deficiency <20 ng/mL (50nmol/L) Insufficiency 20 - 30 ng/mL (50 - 75 nmol/L) Sufficiency 30 - 100 ng/mL (75 - 250 nmol/L) Toxicity >100 ng/mL (>250 nmol/L) Platelets bldOrdered By: Dr. Weaver on 03-17-2022 Platelets (Bld) [#/Vol] 183 10*3/uL 150-450 [facility] Serum or plasma C reactive p rotein measurement (mass/volume)Ordered By: Dr. Weaver on 03-17-2022 CRP [Mass/Vol] 67.70 mg/L 0.0-3.0 [facility] Comment on above: C-Reactive Protein ( CRP) provides useful information for thediagnosis, therapy and monitoring of inflammatory processesand associated diseases. For the evaluation of Relative Riskfor Cardiovascular Disease, a High Sensitivity CRP (HSCRP)should be ordered. Serum or plasma folate measu rement (mass/volume)Ordered By: Dr. Weaver on 03-17-2022 Folate [Mass/Vol] 10.10 ng/mL 3.1-55.4 [facility] Serum or plasma uric acid me asurement (mass/volume)Ordered By: Dr. Weaver on 03-17-2022 Urate [Mass/Vol] 10.3 mg/dL 3.5-7.2 [facility] Comment on above: The drugs N-Acetylcy steine and Metamizole may falsely depress this assay. Whole blood hemoglobin A1c/t otal hemoglobin ratio (mass fraction)Ordered By: Dr. Weaver on 03-17-2022 HbA1c (Bld) [Mass fraction] 5.7 % 3.8-5.6 [facility] Comment on above: Normal < 5.7 % Predi abetic 5.7 - 6.4 % Diabetic >or= 6.5 % Please note range changes. HbA1c (Bld)on 10-26-2021 Average glucose Estimated from glycated hemoglobin (Bld) [Mass/Vol] 114 mg/dL [facility] HbA1c (Bld) [Mass fraction] 5.6 % 4.3 - 5.6 % [facility] Basic metabolic 2000 panelon 08-20-2021 Anion gap [Moles/Vol] 10 mmol/L 9 - 18 mmol/L [facility] Calcium [Mass/Vol] 9.3 mg/dL 8.5 - 10. 2 mg/dL [facility] Chloride [Moles/Vol] 106 mmol/L High 97 - 10 5 mmol/L [facility] CO2 [Moles/Vol] 26 mmol/L 22 - 30 mmol/L [facility] Creatinine [Mass/Vol] 1.44 mg/dL High 0.73 - 1.22 mg/dL [facility] Estimated Glomerular Filtration Rate 52 mL/min/1.73m Low >=60 mL/min/1.73 m [facility] Glucose [Mass/Vol] 127 mg/dL High 74 - 99 mg/dL [facility] Potassium [Moles/Vol] 4.1 mmol/L 3.7 - 5.1 mmol/L [facility] Sodium [Moles/Vol] 142 mmol/L 136 - 144 mmol/L [facility] Urea nitrogen [Mass/Vol] 16 mg/dL 9 - 24 mg/dL [facility] CBC panel Auto (Bld)on 08-20 Erythrocyte distribution width (RBC) [Ratio] 16.0 % High 11.5 - 15.0 % [facility] Hematocrit (Bld) [Volume fraction] 44.5 % 39.0 - 51.0 % [facility] Hemoglobin (Bld) [Mass/Vol] 15.0 g/dL 13.0 - 17.0 g/dL [facility] MCH (RBC) [Entitic mass] 27.8 pg 26.0 - 34.0 pg [facility] MCHC (RBC) [Mass/Vol] 33.7 g/dL 30.5 - 36.0 g/dL [facility] MCV (RBC) [Entitic vol] 82.6 fL 80.0 - 100.0 fL [facility] Nucleated RBC (Bld) [#/Vol] 10*3/uL <0.01 k/uL [facility] Platelet mean volume (Bld) [Entitic vol] 9.9 fL 9.0 - 12.7 fL [facility] Platelets (Bld) [#/Vol] 167 10*3/uL 150 - 400 k/uL [facility] RBC (Bld) [#/Vol] 5.39 10*6/uL 4.20 - 6.0 0 m/uL [facility] WBC (Bld) [#/Vol] 7.43 10*3/uL 3.70 - 11.00 k/uL [facility] FERRITIN BLDon 08-20-2021 Ferritin [Mass/Vol] 167.9 ng/mL 30.3 - 565.7 ng/mL [facility] FOLATE SERUMon 08-20-2021 Folate [Mass/Vol] 11.0 ng/mL >4.7 ng/mL [facility] Iron and Iron binding capaci ty panelon 08-20-2021 Iron [Mass/Vol] 84 ug/dL 41 - 186 ug/dL [facility] Iron binding capacity [Mass/Vol] 270 ug/dL 232 - 386 ug/dL [facility] Iron saturation [Mass fraction] 31.1 % 15.0 - 57.0 % [facility] VITAMIN B12 BLOODon 08-21-19 Cobalamin (Vitamin B12) [Mass/Vol] 314 pg/mL 232-1,245 pg/mL [facility] US ABD RIGHT UPPER QUADRANTo n 12-24-2019 US ABD RIGHT UPPER QUADRANT Final Report DATE OF EXAM: Dec 24 2019 8:51AM LDU 1032 - US ABD RIGHT UPPER QUADRANT / PROCEDURE REASON: multiple diagnoses Physician Interpretation EXAMINATION: RIGHT UPPER QUADRANT ULTRASOUND CLINICAL HISTORY: S/P laparoscopic sleeve gastrectomy Hyperbilirubinemia Common bile duct dilation TECHNIQUE: Sonography of the right upper quadrant was performed. Images were obtained and stored in a permanent archive. MQ: [id number] COMPARISON: CT abdomen and pelvis 01/25/2019. RESULT: Pancreas: Dilated main pancreatic duct 7 mm, appears new from prior. Portions obscured: tail Liver: Echotexture: Normal, homogeneous. Echogenicity: Increased Surface contour: Smooth Lesions: None. Biliary: No intrahepatic biliary duct dilation. CBD: 0.9 cm at the hilum. Gallbladder: Prior cholecystectomy Right Kidney: No hydronephrosis. Ascites: None. IMPRESSION: Dilated main pancreatic duct 7 mm, appears new from prior. Recommend further assessment with MRI/MRCP Common bile duct prominence 9 mm can be seen postcholecystectomy. No intrahepatic biliary duct dilation. Hepatic steatosis. Lining Strap Closer: PSCB Transcribe Date/Time: Dec 24 2019 10:50A Dictated by : MARIAN VAUGHN MD This examination was interpreted and the report reviewed and electronically signed by: MARIAN VAUGHN MD on Dec 24 2019 10:54AM EST Normal [facility] Thiamine (VitB1), Whole Bloo don 10-08-2019 Thiamine (VitB1), Whole Blood 198.6 nmol/L Normal 84.0-213.0 [facility] Comment on above: Result Comment: This assay measures the concentration of thiamine diphosphate (TDP), the primary active form of vitamin B1. Approximately 90 percent of vitamin B1 present in whole blood is TDP. Thiamine and thiamine monophosphate, which comprise the remaining 10 percent, are not measured. This test was developed and its performance characteristics determined by [facility] [place] ( [facility]). It has not been cleared or approved by the FDA. [facility] is regulated under CLIA as qualified to perform high complexity testing. This test is used for clinical purposes. It should not be regarded as investigational or for research. Performing Laboratory: [place] [id number] Performed By: #### V [id number] #### [address], [place] [address] Total 25-OH Vitamin Don 09-07 Total 25-OH Vitamin D 37.2 ng/mL Normal 30.0-100.0 [facility] Comment on above: Performed By: #### 2 [id number] #### [facility] [address] [place], [place] [address] Basic Metabolic Panelon 09-07 Calcium [Mass/Vol] 9.2 mg/dL Normal 8.5-10.2 [facility] Comment on above: Performed By: #### B MP #### [facility] [address] [place], [place] [address] Chloride [Moles/Vol] 105 mmol/L Normal 97-105 [facility] Comment on above: Performed By: #### B MP #### [facility] [address] [place], [place] [address] Glucose [Mass/Vol] 110 mg/dL High 74-99 [facility] Comment on above: Result Comment: The [place] Diabetes [employer] (ADA) provides guidance for cutoff values for fasting glucose and random glucose. The ADA defines fasting as no caloric intake for at least 8 hours.Fasting plasma glucose results between 100 to 125 mg/dL indicate increased risk for diabetes (prediabetes). Fasting plasma glucose results greater than or equal to 126 mg/dL meet the criteria for diagnosis of diabetes. In the absence of unequivocal hyperglycemia, results should be confirmed by repeat testing. In a patient with classic symptoms of hyperglycemia or hyperglycemic crisis, random plasma glucose results greater than or equal to 200 mg/dL meet the criteria for diagnosis of diabetes. Reference: Standards of Medical Care in Diabetes 2016; [place] [employer]. Diabetes Care. 2016;39(Suppl 1). Performed By: #### B MP #### [facility] [address] [place], [place] [address] Sodium [Moles/Vol] 143 mmol/L Normal 136-144 [facility] Comment on above: Performed By: #### B MP #### [facility] [address] [place], [place] [address] Urea nitrogen [Mass/Vol] 21 mg/dL Normal 9-24 [facility] Comment on above: Performed By: #### B MP #### [facility] [address] [place] [address] Comprehensive Metabolic Pane duglas 10-03-2019 Albumin [Mass/Vol] 4.1 g/dL Normal 3.9-4.9 [facility] Comment on above: Performed By: #### F OL2 #### [facility] [address] [place] [address] ALP [Catalytic activity/Vol] 55 U/L Normal 38-113 [facility] Comment on above: Performed By: #### F OL2 #### [facility] [address] [place] [address] ALT [Catalytic activity/Vol] 29 U/L Normal 10-54 [facility] Comment on above: Performed By: #### F OL2 #### [facility] [address] [place] [address] Anion gap [Moles/Vol] 12 mmol/L Normal 9-18 [facility] Comment on above: Performed By: #### F OL2 #### [facility] [address] [place] [address] Performed By: #### B MP #### [facility] [address] [place] [address] AST [Catalytic activity/Vol] 27 U/L Normal 14-40 [facility] Comment on above: Performed By: #### F OL2 #### [facility] [address] [place] [address] Bilirubin [Mass/Vol] 5.3 mg/dL High 0.2-1.3 [facility] Comment on above: Performed By: #### F OL2 #### [facility] [address] [place] [address] Calcium [Mass/Vol] 9.3 mg/dL Normal 8.5-10.2 [facility] Comment on above: Performed By: #### F OL2 #### [facility] [address] [place] [address] Chloride [Moles/Vol] 104 mmol/L Normal 97-105 [facility] Comment on above: Performed By: #### F OL2 #### [facility] [address] [place], [place] [address] CO2 [Moles/Vol] 26 mmol/L Normal 22-30 [facility] Comment on above: Performed By: #### F OL2 #### [facility] [address] [place] [address] Performed By: #### B MP #### [facility] [address] [place] [address] Creatinine [Mass/Vol] 1.52 mg/dL High 0.73-1.22 [facility] Comment on above: Performed By: #### F OL2 #### [facility] [address] [place] [address] Performed By: #### B MP #### [facility] [address] [place] [address] Glucose [Mass/Vol] 111 mg/dL High 74-99 [facility] Comment on above: Result Comment: The [place] Diabetes Association (ADA) provides guidance for cutoff values for fasting glucose and random glucose. The ADA defines fasting as no caloric intake for at least 8 hours.Fasting plasma glucose results between 100 to 125 mg/dL indicate increased risk for diabetes (prediabetes). Fasting plasma glucose results greater than or equal to 126 mg/dL meet the criteria for diagnosis of diabetes. In the absence of unequivocal hyperglycemia, results should be confirmed by repeat testing. In a patient with classic symptoms of hyperglycemia or hyperglycemic crisis, random plasma glucose results greater than or equal to 200 mg/dL meet the criteria for diagnosis of diabetes. Reference: Standards of Medical Care in Diabetes 2016; [place] [employer]. Diabetes Care. 2016;39(Suppl 1). Performed By: #### F OL2 #### [facility] [address] [place] [address] Potassium [Moles/Vol] 3.8 mmol/L Normal 3.7-5.1 [facility] Comment on above: Performed By: #### F OL2 #### [facility] [address] [place] [address] Performed By: #### B MP #### [facility] [address] [place] [address] Protein [Mass/Vol] 6.8 g/dL Normal 6.3-8.0 [facility] Comment on above: Performed By: #### F OL2 #### [facility] [address] [place], [place] [address] Sodium [Moles/Vol] 142 mmol/L Normal 136-144 [facility] Comment on above: Performed By: #### F OL2 #### [facility] [address] [place], [place] [address] Urea nitrogen [Mass/Vol] 20 mg/dL Normal 9-24 [facility] Comment on above: Performed By: #### F OL2 #### [facility] [address] [place], [place] [address] Ferritinon 10-03-2019 Ferritin [Mass/Vol] 469.1 ng/mL Normal 30.3-565.7 [facility] Comment on above: Result Comment: Claire ents taking a biotin dose of up to 5 mg/day should refrain from taking biotin for 4 hours prior to sample collection. Patients taking a biotin dose of 5 to 10 mg/day should refrain from taking biotin for 8 hours prior to sample collection. Patients taking a biotin dose > 10 mg/day should consult with their physician or the laboratory prior to having a sample taken. Clinicians should consider biotin interference as a source of error, when clinically suspicious of the laboratory result. Performed By: #### F ERR2 #### [facility] [address] [place], [place] [address] Folateon 10-03-2019 Folate >20.0 Normal > 4.7 [facility] Comment on above: Result Comment: A re sult of > 20 ng/mL is not necessarily indicative of a pathologic or treatable condition; it reflects a limitation of the test methodology. This assay?s reference range is 4.8 to 24.2 ng/mL. This test is suitable for detection of folate deficiency. Patients taking a biotin dose of up to 5 mg/day should refrain from taking biotin for 4 hours prior to sample collection. Patients taking a biotin dose of 5 to 10 mg/day should refrain from taking biotin for 8 hours prior to sample collection. Patients taking a biotin dose > 10 mg/day should consult with their physician or the laboratory prior to having a sample taken. Clinicians should consider biotin interference as a source of error, when clinically suspicious of the laboratory result. Performed By: #### F OL2 #### [facility] [address] [place] [address] Haptoglobinon 10-03-2019 Haptoglobin 93 mg/dL Normal 31-238 [facility] Comment on above: Performed By: #### F OL2 #### [facility] [address] [place] [address] Hemogramon 10-03-2019 Erythrocyte distribution width (RBC) [Ratio] 17.5 % High 11.6-14.4 [facility] Comment on above: Performed By: #### C BC1 #### [facility] [address] [place] [address] Hematocrit (Bld) [Volume fraction] 41.1 % Normal 40.1-51.0 [facility] Comment on above: Performed By: #### C BC1 #### [place] [address] Hemoglobin (Bld) [Mass/Vol] 13.5 g/dL Low 13.7-17.5 [facility] Comment on above: Performed By: #### C BC1 #### [facility] [address] [place] [address] MCH (RBC) [Entitic mass] 28.7 pg Normal 25.7-32.2 [facility] Comment on above: Performed By: #### C BC1 #### [place] [address] MCHC 32.8 % Normal 32.3-36.5 [facility] Comment on above: Performed By: #### C BC1 #### [facility] [address] [place] [address] MCV (RBC) [Entitic vol] 87.4 fL Normal 83.2-95.6 [facility] Comment on above: Performed By: #### C BC1 #### [facility] [address] [address] Platelet mean volume (Bld) [Entitic vol] 11.3 fL Normal 8.7-12.0 [facility] Comment on above: Performed By: #### C BC1 #### [facility] [address] [place] [address] Platelets (Bld) [#/Vol] 168 10*3/uL Normal 141-365 [facility] Comment on above: Performed By: #### C BC1 #### [facility] [address] [place] [address] RBC 4.70 mil/cmm Normal 4.63-6.08 [facility] Comment on above: Performed By: #### C BC1 #### [place] [address] RDW SD 54.9 fl High 36.1-45.8 [facility] Comment on above: Performed By: #### C BC1 #### [place] [address] WBC (Bld) [#/Vol] 7.49 10*3/uL Normal 4.23-9.07 [facility] Comment on above: Performed By: #### C BC1 #### [place] [address] Hemogram/Diffon 10-03-2019 Abs Immature Grans 0.04 thou/cmm Normal 0.00-0.05 [facility] Comment on above: Performed By: #### C BCD1 #### [place] [address] Abs Neut (ANC) 4.83 thou/cmm Normal 1.78-5.38 [facility] Comment on above: Performed By: #### C BCD1 #### [place] [address] Abs. Baso 0.06 thou/cmm Normal 0.01-0.08 [facility] Comment on above: Performed By: #### C BCD1 #### [facility] [address] [place] [address] Abs. Pitkin 0.77 thou/cmm Normal 0.30-0.82 [facility] Comment on above: Performed By: #### C BCD1 #### [place] [address] Basophils/100 WBC (Bld) 0.8 % Normal [facility] Comment on above: Performed By: #### C BCD1 #### [facility] [address] [place], [place] [address] Eosinophils (Bld) [#/Vol] 0.25 10*3/uL Normal 0.04-0.54 [facility] Comment on above: Performed By: #### C BCD1 #### [facility] [address] [place], [place] [address] Eosinophils/100 WBC (Bld) 3.3 % Normal [facility] Comment on above: Performed By: #### C BCD1 #### [facility] [address] [place] [address] Erythrocyte distribution width (RBC) [Ratio] 17.8 % High 11.6-14.4 [facility] Comment on above: Performed By: #### C BCD1 #### [facility] [address] [place] [address] Hematocrit (Bld) [Volume fraction] 42.6 % Normal 40.1-51.0 [facility] Comment on above: Performed By: #### C BCD1 #### [facility] [address] [place] [address] Hemoglobin (Bld) [Mass/Vol] 14.0 g/dL Normal 13.7-17.5 [facility] Comment on above: Performed By: #### C BCD1 #### [facility] [address] [place] [address] Immature Grans 0.50 % Normal [facility] Comment on above: Performed By: #### C BCD1 #### [facility] [address] [place], [place] [address] Lymphocytes (Bld) [#/Vol] 1.71 10*3/uL Normal 0.84-2.85 [facility] Comment on above: Performed By: #### C BCD1 #### [facility] [address] [place], [place] [address] Lymphocytes/100 WBC (Bld) 22.3 % Normal [facility] Comment on above: Performed By: #### C BCD1 #### [facility] [address] [place] [address] MCH (RBC) [Entitic mass] 28.9 pg Normal 25.7-32.2 [facility] Comment on above: Performed By: #### C BCD1 #### [facility] [address] [place] [address] MCHC 32.9 % Normal 32.3-36.5 [facility] Comment on above: Performed By: #### C BCD1 #### [facility] [address] [place] [address] MCV (RBC) [Entitic vol] 88.0 fL Normal 83.2-95.6 [facility] Comment on above: Performed By: #### C BCD1 #### [facility] [address] [place] [address] Monocytes/100 WBC (Bld) 10.1 % Normal [facility] Comment on above: Performed By: #### C BCD1 #### [facility] [address] [place] [address] Platelet mean volume (Bld) [Entitic vol] 10.8 fL Normal 8.7-12.0 [facility] Comment on above: Performed By: #### C BCD1 #### [facility] [address] [place] [address] Platelets (Bld) [#/Vol] 180 10*3/uL Normal 141-365 [facility] Comment on above: Performed By: #### C BCD1 #### [place] [address] RBC 4.84 mil/cmm Normal 4.63-6.08 [facility] Comment on above: Performed By: #### C BCD1 #### [facility] [address] [place] [address] RDW SD 56.1 fl High 36.1-45.8 [facility] Comment on above: Performed By: #### C BCD1 #### [place] [address] Seg Neutrophil 63.0 % Normal [facility] Comment on above: Performed By: #### C BCD1 #### [facility] [address] [place] [address] WBC (Bld) [#/Vol] 7.66 10*3/uL Normal 4.23-9.07 [facility] Comment on above: Performed By: #### C BCD1 #### [facility] [address] [place] [address] Iron % Saturationon 10-03-19 20 Iron % Saturation 32 % Normal 15-57 [facility] Comment on above: Performed By: #### F OL2 #### [place] [address] Iron Serum 82 ug/dL Normal 41-186 [facility] Comment on above: Performed By: #### F OL2 #### [place] [address] Total Iron Binding Cap. 260 ug/dL Normal 232-386 [facility] Comment on above: Performed By: #### F OL2 #### [place] [address] LD, Total Bloodon 10-03-2019 LD, Total Blood 225 U/L Normal 135-225 [facility] Comment on above: Performed By: #### L DH #### [place] [address] Lactic Acidon 10-03-2019 Lactate [Moles/Vol] 2.1 mmol/L Normal 0.5-2.2 [facility] Comment on above: Performed By: #### L ACT #### [place] [address] Lipase Bloodon 10-03-2019 Lipase Blood 25 U/L Normal 16-61 [facility] Comment on above: Performed By: #### F OL2 #### [place] [address] MDRD GFRon 10-03-2019 GFR/1.73 sq M.predicted among non-blacks MDRD (S/P/Bld) [Vol rate/Area] 45.72 mL/min/{1.73_m2} Normal >60mL/min/1 .73m2 [facility] Comment on above: Result Comment: If t he patient is , multiply the result by 1.210. Performed By: #### G FR #### [facility] [address] [place] [address] Performed By: #### F OL2 #### [facility] [address] [id number] Vitamin B12on 10-03-2019 Cobalamin (Vitamin B12) [Mass/Vol] 721 pg/mL Normal 232-1245 [facility] Comment on above: Result Comment: Claire ents taking a biotin dose of up to 5 mg/day should refrain from taking biotin for 4 hours prior to sample collection. Patients taking a biotin dose of 5 to 10 mg/day should refrain from taking biotin for 8 hours prior to sample collection. Patients taking a biotin dose > 10 mg/day should consult with their physician or the laboratory prior to having a sample taken. Clinicians should consider biotin interference as a source of error, when clinically suspicious of the laboratory result. Performed By: #### F OL2 #### [place] [address] Office Visit: ARMANDO & COPDon 1 Dietary management education, guidance, and counseling (procedure) yes Invalid Interpretation Code [facility] Work Phone: Documentation of current medications (procedure) Done Invalid Interpretation Code [facility] Work Phone: Fall risk assessment Yes Invalid Interpretation Code [facility] Work Phone: Tobacco smoking status NHIS Never Invalid Interpretation Code [facility] Work Phone: Tobacco use [facility] Never smoker Invalid Interpretation Code [facility] Work Phone: CNPRyanne 10-05-2016 CNPN Telephone (MEPRAD) LC GRUBBS ( ) 1950 [facility] Time Provider Department10/05/16 LC LÓPEZ JR During your visit today, we recorded the following information about you:Lc López MD 10/05/2016 4:07 PM SignedDiscussed patient's prior titration records with Tona Dillard at [facility] -- per documentation, patient was to be onBilevel ST at 25/20 with BR of 16 BPM. I have contacted his DME - [employer] - whohas confirmed that this is the pressure he is on. A download was providedshowing compliance with use of ANDgt;7 hours per night. Patient reported lastweek in office that he is benefiting from device. However, the download doesnot provide me with 30 day AHI or for that matter weekly AHI. There is aditya AHI reportedly for 09/04/16 (= 0) and question if this is accurate. Patienton that same night having max mask leak of 63.9. We will request anotherdownload for the 30 days indicating AHI and leak. Also will request (rxpreviously provided) for new device.Jelena Nguyen MA 10/06/2016 9:31 AM SignedCalled [employer], they reported that the AHI would not read because of the highamount of leaks. They will need an order for a new CPAP machine. They also needa note stating the the patient is still using an benefiting from the machine.Jelena López MD 10/06/2016 3:16 PM SignedAddended by: LC LÓPEZ on: 10/06/2016 03:16 PM Modules accepted: Monalisa Nguyen MA 10/07/2016 10:48 AM SignedFaxed order to [employer] at [phone].Jelena Ruff As of Date: 10/05/2016 Noted Allergy ReactionAVELOX (MOXIFLOXACIN HCL) 04/17/2012 4 - HivesDate Reviewed: 09/23/2016Reviewed by: Jamari Walls - Fully AssessedReason for Visit: Follow Up [171] Cmt: OSAS/BilevelPrimary Visit Diagnosis:Central sleep apnea [G47.31] Other Visit Diagnosis:Obstructive sleep apnea (adult) (pediatric) [G47.33]Order(s):BIPAP MACHINE W/ HUMIDITY [2243023] Order #: [id number]: 1Prescriptions as of 10/05/2016 Sig: GABAPENTIN 300 MG CAPSULE Take 2 capsules by mouth thre* FLOVENT DISKUS 100 MCG/ACTUAT* CLINDAMYCIN 150 MG CAPSULE Take 150 mg by mouth once anastacia* FUROSEMIDE 40 MG TABLET Take 40 mg by mouth once robin* SOTALOL 120 MG TABLET Take 120 mg by mouth once anastacia* TRAMADOL 50 MG TABLET Take 50 mg by mouth once robin* BUPROPION XL 150 MG TAB CARVEDILOL 25 MG TABLET 12.5 mg twice daily with meal* ELIQUIS 5 MG TABLET FAMOTIDINE 20 MG TABLET Take 20 mg by mouth twice anastacia* SITAGLIPTIN 50 MG-METFORMIN 5* Take 1 tablet by mouth twice * MONTELUKAST 10 MG TABLET Take 10 mg by mouth daily at * CICLOPIROX 8 % TOPICAL SOLUTI* Apply 1 application to affect* FUROSEMIDE 20 MG TABLET Take 1 tablet by mouth once d* ATORVASTATIN 10 MG TABLET Take 20 mg by mouth once robin* MOMETASONE 0.1 % TOPICAL CREAM Apply to affected area once * PYRIDOXINE (VITAMIN B6) 100 M* Take 1 tablet by mouth twice * BECLOMETHASONE DIPROPIONATE 8* Inhale 1 Puff as instructed t* PEAK FLOW METER LACTULOSE 20 GRAM/30 ML ORAL * Take 30 mL by mouth three lizzie* ASPIRIN 325 MG TABLET Take 1 tablet by mouth once d* MULTIVITAMIN TABLET Take one(1) tablet daily. LISINOPRIL 10 MG-HYDROCHLOROT* take one tablet by mouth once* CARVEDILOL 6.25 MG TABLET Take one(1) tablet twice robin* NAPROXEN SODIUM 220 MG TABLET Take one(1) tablet twice robin*Problem List As Of Date 10/05/2016 Noted Resolved Pain [R52] INVALID FOR* Elbow fracture [S42.409A] INVALID FOR* Type II or unspecified type diabetes mellitus w*INVALID FOR* Morbid obesity [E66.01] INVALID FOR* Dietary surveillance and counseling [Z71.3] INVALID FOR* Cardiomyopathy [I42.9] INVALID FOR* Anemia [D64.9] INVALID FOR* Automatic implantable cardiac defibrillator in *INVALID FOR* More... Intellectual disability [F79] INVALID FOR* Illiterate [Z55.0] INVALID FOR* Cholelithiasis [K80.20] INVALID FOR* NAFLD (nonalcoholic fatty liver disease) [K76.0]INVALID FOR* OPENED IN ERROR [] INVALID FOR* Combined form of senile cataract of both eyes [*INVALID FOR* Type 2 diabetes mellitus without retinopathy (H*INVALID FOR* Vitreous floaters of both eyes [H43.393] INVALID FOR* Obstructive sleep apnea [G47.33] INVALID FOR* Cataract, nuclear sclerotic senile [H25.10] INVALID FOR* Essential hypertension [I10] INVALID FOR* Status:Closed by LC LÓPEZ on 10/05/16 [facility] Diagnostic Catherizationon 0 09-09-2016 Diagnostic Catherization Patient Name: LC GRUBBS [employer] Exam Date/Time 09/10/2016 10:05:39 EDT Exam Diagnostic Catherization Ordering Physician MD MOSER PETER Accession Number [id number] Report [facility] --------- --- CARDIAC CATHETERIZATION Patient: Lc Grubbs Procedure Date: 09/09/2016 : 1950 Age: 65 Gender: M Patient Type: O Procedure physician: Jose D Moser MD Fellow: Corinna العلي Referring Physician: Jose D Moser MD Smith, Eric Arthur --------- --- INDICATIONS: (E66.3,E78.5,142.0,Z95 .810). Cardiomyopathy. Shortness of breath. --------- --- Procedures performed: - Right coronary angiography. - Left coronary angiography. - Left heart catheterization with angiography. --------- --- SUMMARY: 1. 65y/o male with history of CHF here with shortness of breath and a positive stress test (possible anterolateral ischemia). IMPRESSIONS: 1. Mild CAD throughout the LAD, circumflex, and RCA systems. 2. Mild-moderately depressed LV systolic function, estimated EF 40-45%. 3. No aortic stenosis. 4. Only mild-moderately elevated LVEDP. RECOMMENDATIONS: Continued aggressive management of CHF. Weight loss would be beneficial. --------- --- HISTORY: Functional status: Prior history of congestive heart failure. Risk factors: Hypertension. Diabetes mellitus; on therapy with oral hypoglycem ics. Dyslipidemia. Medications: Carvedilol (Coreg). Atorvastatin (Lipitor). Furosemide (Lasix). Allergies: OTHER allergy. ALLERGIES : AVELOX. Pacemake r. ICD. Family history of cardiovascular disease. --------- --- PROCEDURE IN DETAIL: Study status: Cardiac cath: elective. Consent: The risks, benefits, and alternatives to the procedure and sedation were explained to the patient and informed consent was obtained. Fluoroscopy time: Fluorosco py time: 6.2 min. Fluoroscopy dose: Fluoroscopy dose: 214.3 cGy. Location : Catheterization laboratory. PROCEDURE: 1. Initial setup. The patient was brought to the laboratory. A baseline ECG was recorded. Intravenous access was obtained. Surface ECG leads, blood pressure measurements, and pulse oximetric signals were monitored. 2. Skin preparation. The planned puncture sites were prepped and draped in the usual sterile manner. 3. Local anesthesia. 1% Lidocaine was administered. 4. Right radial artery access. A 6Fr/10cm Glidesheath Slender sheath was advanced into the vessel. 5. Selective right coronary angiography. A 5Fr x 100cm JR4 catheter was advanced into the right coronary vessel ostium under fluoroscopic guidance. Contrast was injected. Images were obtained in multiple projections. 6. Selective left coronary angiography. A 5Fr x 100cm JL3.5 catheter was advanced into the left coronary vessel ostium under fluoroscopic guidance. Contrast was injected. Images were obtained in multiple projections. 7. Left heart catheterization with angiography. A 5Fr x 110cm Angled Pigtail catheter was advanced across the aortic valve to the left ventricle under fluoroscopic guidance. 29 ml of contrast was injected at 10 ml/s. 8. Right radial artery hemostasis. The sheath was removed. Mechanical compression was applied. STUDY COMPLETION: The estimated blood loss was 10 ml. All catheters inserted during the procedure were removed. The patient tolerated the procedure well and was discharged from the lab. There were no complications. Administered medica tions: Verapamil (Isoptin, Calan, Covera), 2.5mg, VERAPAMIL. NITROGLYCERIN ( IA), 200mcg, NITROGLYCERIN (IA). Heparin, 5000units, HEPARIN. Midazolam, 1mg, VERSED. Contrast: 1. ISOVUE 300MG/CC 86 ml (total dose). --------- --- CORONARY ARTERIES: The coronary circulation is right dominant. The left main bifurcates normally into the LAD and circumflex. The left anterior descending g jorge luis rise to 1 diagonal and 1 septal. The left circumflex gives rise to 1 obtus e marginal. The right coronary gives rise to the posterior descending artery, 1 RV marginal, and 1 posterolateral. LAD: Mid-vessel lesion: There is a 20% stenosis. Left circumflex: Minor luminal irregularities. Right coronary: Proximal vessel lesion: There is a 20% stenosis. LEFT VENTRICLE: The estimated ejection fraction is 40-45%. Moderate hypokinesis of the mid-apical inferior myocardium. AORTIC VALVE: There is no stenosis. HEMODYNAMICS: + ----+ ----+ !Stage description !Condition1:Room Air -! + ----+ ----+ !LV pressure s/ed !113/18 ! + ----+ ----+ !Arterial pressure s/d (m)!112/66 (85) ! + ----+ ----+ Prepared and electronically signed by Jose D Moser MD 09/14/2016 12:22 Final Dictated: 09/14/2016 12:23 pm Dictating Physician: MD MOSER PETER Signed Date and Time: 09/14/2016 12:23 pm Signed by: MD MOSER PETER [facility] Glucose,Bedsideon 09-09-2016 Glucose mass conc 132 mg/dL High 70-100 [facility] Comment on above: Result Comment: Test performed by glucose meter. Results may be 10%-15% lowerthan serum/plasma values. (CLIA ID [id number]) Performed By: #### B GLU ####[address] [address] [place] [address] Basic Metabolic Panelon 08-0 Creatinine 1.30 mg/dL Normal 0.55-1.40 [facility] Comment on above: Performed By: #### H ROXANNE BMP3 ####[place] [address] [place] [address] eGFR (black) mL/min/{1.73_m2} Normal >60 [facility] Comment on above: Performed By: #### H ROXANNE BMP3 ####[place] [address] [place] [address] eGFR (non-black) 55.3 mL/min/{1.73_m2} Normal >60 [facility] Comment on above: Result Comment: Sour ce- MDRD equation with creatinine calibration to IDMS(NKDEP)eGFR not recommended for drug dose adjustment Performed By: #### H ROXANNE BMP3 ####[place] [address] [place] [address] Anion gap 9 mmol/L Normal [facility] Comment on above: Performed By: #### H ROXANNE BMP3 ####[address] [address] [place] [address] CO2 25 mmol/L Normal 21-32 [facility] Comment on above: Performed By: #### H ROXANNE BMP3 ####[address] [address] [place] [address] Urea nitrogen 18 mg/dL Normal 7-25 [facility] Comment on above: Performed By: #### H ROXANNE BMP3 ####[place] [address] [place] [address] Calcium 9.2 mg/dL Normal 8.2-10.1 [facility] Comment on above: Performed By: #### H ROXANNE BMP3 ####[place] [address] [place] [address] Glucose mass conc 115 mg/dL High 70-100 [facility] Comment on above: Performed By: #### H ROXANNE, BMP3 ####[place] [address] [place] [address] Clinical Lists Update: Prelo outside sales consultant 09-06-2016 Chloride 108 mmol/L Normal 98-109 [facility] Work Phone: Comment on above: Performed By: #### H MICHAELG, BMP3 ####[address] [address] [place] [address] Potassium molar conc 4.5 mmol/L Normal 3.5-5.1 [facility] Work Phone: Comment on above: Performed By: #### H ROXANNE, BMP3 ####[address] [address] [place] [address] Sodium 142 mmol/L Normal 135-145 [facility] Work Phone: Comment on above: Performed By: #### H ROXANNE, BMP3 ####[address] [address] [place] [address] Anion gap 9 mmol/L Invalid Interpretation Code [facility] Work Phone: [phone] Calcium 9.2 mg/dL Invalid Interpretation Code [facility] Work Phone: [phone] CO2 25 mmol/L Invalid Interpretation Code [facility] Work Phone: [phone] Creatinine 1.30 mg/dL Invalid Interpretation Code [facility] Work Phone: [phone] Erythrocyte distribution width Auto Ratio (RBC) 16.5 % High [facility] Work Phone: [phone] Erythrocytes (RBC) 4.79 10*6/uL Invalid Interpretation Code [facility] Work Phone: [phone] Glucose mass conc 115 mg/dL High [facility] Work Phone: [phone] Hematocrit (HCT) 40.3 % Invalid Interpretation Code [facility] Work Phone: Hemoglobin mass conc (Bld) 13.4 g/dL Invalid Interpretation Code [facility] Work Phone: MCH 27.9 pg Invalid Interpretation Code [facility] Work Phone: MCHC mass conc (RBC) 33.1 g/dL Invalid Interpretation Code [facility] Work Phone: [phone] MCV 84.2 fL Invalid Interpretation Code [facility] Work Phone: [phone] Platelets 194 10*3/mm3 Invalid Interpretation Code [facility] Work Phone: PMV by Belén 8.5 fL Invalid Interpretation Code [facility] Work Phone: Urea nitrogen 18 mg/dL Invalid Interpretation Code [facility] Work Phone: WBC (Leukocytes) 10.3 10*3/uL Invalid Interpretation Code [facility] Work Phone: Hemogramon 09-06-2016 Erythrocyte distribution width Auto Ratio (RBC) 16.5 % High 11.5-14.5 [facility] Comment on above: Performed By: #### H CAMERON OLIVEIRA3 ####[address] [address] Erythrocytes (RBC) 4.79 10*6/uL Normal 4.40-5.90 [facility] Comment on above: Performed By: #### H CAMERON OLIVEIRA3 ####[address] [address] Hematocrit (HCT) 40.3 % Normal 40.0-52.0 [facility] Comment on above: Performed By: #### H CAMERON OLIVEIRA3 ####[address] [address] Hemoglobin mass conc (Bld) 13.4 g/dL Normal 13.0-18.0 [facility] Comment on above: Performed By: #### H ROXANNE BMP3 ####[address] [address] MCH 27.9 pg Normal 26.0-34.0 [facility] Comment on above: Performed By: #### H EMOG, BMP3 ####[address] [place] [address] MCHC mass conc (RBC) 33.1 % Normal 32.0-36.0 [facility] Comment on above: Performed By: #### H EMOG, BMP3 ####[address] [place] [address] MCV 84.2 fL Normal 80.0-98.0 [facility] Comment on above: Performed By: #### H EMOG, BMP3 ####[address] [place] [address] Platelet mean volume (PMV) 8.5 fL Normal 7.4-10.4 [facility] Comment on above: Performed By: #### H EMOG, BMP3 ####[address] [place] [address] Platelets 194 10*3/uL Normal 140-440 [facility] Comment on above: Performed By: #### H EMOG, BMP3 ####[address] [place] [address] WBC (Leukocytes) 10.3 10*3/uL Normal 3.6-10.7 [facility] Comment on above: Performed By: #### H EMOG, BMP3 ####[address] [place] [address] Replaced Document: Rose Leiva 09-05-2016 EKG QRS axis -173 deg Invalid Interpretation Code [facility] Work Phone: Interpretation Electronic ventricul ar pacemaker Pacemaker ECG, No further analysis INSUFFICIENT DATA Invalid Interpretation Code [facility] Work Phone: P Irving 90 deg Invalid Interpretation Code [facility] Work Phone: LA Interval 0 ms Invalid Interpretation Code [facility] Work Phone: Pulse (Heart Rate) 74 /min Invalid Interpretation Code [facility] Work Phone: QRS Duration 146 ms Invalid Interpretation Code [facility] Work Phone: QT Interval new path ms Invalid Interpretation Code [facility] Work Phone: QTc Patel 486 ms Invalid Interpretation Code [facility] Work Phone: T Irving 51 deg Invalid Interpretation Code [facility] Work Phone: NM Myocardial Perf Imaging M ulti Specton 08-02-2016 NM Myocardial Perf Imaging Multi Spect Patient Name: LC GRUBBS Nuc Med Exam Date/Time 08/02/2016 15:00:51 EDT Exam NM Myocardial Perf Imaging Multi Spect Ordering Physician [id number] -MYNOR MENDOZA Accession Number [id number] CPT4 Codes 36699 (), 52980 (NM EKG TREADMILL - NUCLEAR) Reason For Exam cardiomyopathy hyperlipidemia SOB Report *Nuclear Cardiology* [place] [address] Fax #: [email or web address] --------- --- Nuclear Stress Myocardial Perfusion Study Regadenoson Protocol Gated SPECT Patient: Lc Grubbs Height: (69 in) Weight: (350 lb) : 1950 Age: 65 Gender: M Study Date: 08/02/2016 Accession#: Patient Room #: *ORDERING PHYSICIAN: * Mynor Mendoza MD *SUPERVISING PHYSICIAN: * Mima Harvey *RN: * Bree Pitt *RADIOLOGIST: * Kathrine Wan MD *READING PHYSICIAN: * Miguel Ken MD --------- --- Indications: (E66.3,E78.5,142.0,Z95 .810). --------- --- Summary: 1. Procedure narrative: Regadenoson stress test. Stress testing was performed, with regadenoson by intravenous bolus at one minute into the protocol, for a total dose of 0.4mgover 10.00 sec, followed by a 5 ml saline flush. Exercise for 4 minutes completed by low level exercise. A pharmacologic approach was used because the patient was physically unable to exercise. 2. Stress: Peak heart rate during stress was 72 bpm. (46% of maximal predicted heart rate). The maximal predicted heart rate was 155 bpm.The heart rate response to stress is normal. The rate-pressure product for the peak heart rate and blood pressure was 12308 mm Hg/min. The patient experienced no chest pain during stress. 3. Stress ECG conclusions: The stress ECG is equivocal for ischemia. Cannot assess the ST segments with a paced QRS. 4. Left ventricular systolic function is depressed; there appears to be left ventricular enlargement and diffuse hypokinesis.. 5. Small to moderate reversible finding in the anteroseptal wall of questionable significance, given the overall poor quality of the exam. Mild ischemic change not excluded. Radiologist Confirmation: The SPECT perfusion imaging portion of the study was interpreted and reported by Kathrine Hernandez MD on 08/02/2016 03:51 PM. Critical Result: Results were telephoned to to Dr Mendoza, on 08/02/2016, at 03:59 PM. --------- --- History: NONE The last beta liv was taken by the patient on 08/01/2016 00:00 AM. Hypertension treated. Diabetic non insulin dependent. Medications: Carvedilol (Coreg). Atorvastatin (Lipitor). Furosemide (Lasix). ALLERGIES : AVELOX. Dyslipidemia. Asthma. Pacemaker. ICD. Family history of cardiovascular disease. Patient is NPO per policy. No caffeine per policy. --------- --- Study data: Bra or chest circumference is 50 in. The patient's lungs are clear to auscultation. Heart auscultation by RN revealed a regular rate and rhythm. Pre pain assessment is 0 out of 10. Post pain assessment is 0 out of 10. Patient status: Outpatient. Gated SPECT; rest/stress. One-day Sestamibi. Consent: The procedure was reviewed with the patient and the patient voices understanding. Study completion: The patient tolerated the procedure well and was discharged from the lab. There were no complications. Discharge: Discharge instruction given. --------- --- Procedure data: Initial setup. The patient was brought to the laboratory. A baseline ECG was recorded. Surface ECG leads and blood pressure measurements were monitored. IV access verified #20 LEFT AC. IV patent, site benign. IV discontinued, site benign. Regadenoson stress test. Stress testing was performed, with regadenoson by intravenous bolus at one minute into the protocol, for a total dose of 0.4mgover 10.00 sec, followed by a 5 ml saline flush. Exercise for 4 minutes completed by low level exercise. A pharmacologic approach was used because the patient was physically unable to exercise. --------- --- Baseline ECG: Normal sinus rhythm with 1:1 AV pacing. Stress protocol: + +--+---- -------+ + + !Stage !HR!BP (mmHg) !ST/T !Symptoms ! + +--+---- -------+ + + !Rest !66!114/69 (84)!Normal !None ! + +--+---- -------+ + + !Peak stress !72!143/62 (89)!Same as above!LIGHTHEADED! + +--+---- -------+ + + !Recovery !68!126/68 (87)!Same as above!Subsiding ! + +--+---- -------+ + + !Late recovery!63!107/62 (77)!Same as above!None ! + +--+---- -------+ + + Stress results: Peak heart rate during stress was 72 bpm. (46% of maximal predicted heart rate). The maximal predicted heart rate was 155 bpm.The heart rate response to stress is normal. The rate-pressure product for the peak heart rate and blood pressure was 40241 mm Hg/min. The patient experienced no chest pain during stress. Stress ECG: The stress ECG is equivocal for ischemia. Cannot assess the ST segments with a paced QRS. Isotope administration: + +------ + + !Stage !Rest !Stress ! + +------ + + !Agent !Tc[99m]-sestamibi!Tc[ 99m]-sestamibi ! + +------ + + !Dose !8.8 mCi !35 mCi ! + +------ + + !Injection time!08:30 AM !09:46 AM ! + +------ + + !Route !IV !IV ! + +------ + + !Injected by !PC !BJB ! + +------ + + !Injection at ! !1 min before end of exercise! + +------ + + Image properties: Imaging information: The study was gated. The image quality was poor. Rotating projection images reveal subdiaphragmatic activity and generalized soft tissue attenuation. Myocardial perfusion imaging: The TID ratio is 0.88. There is a small to moderate, mild, reversible defect involving the mid anteroseptal wall(s). Gated SPECT: The left ventricular end-diastolic volume is 147 ml. The left ventricular end-systolic volume is 98 ml. The calculated left ventricular ejection fraction during stress is33 %. LV global systolic function is depressed. Electronically signed by Miguel Ken MD 08/02/2016 16:08 Final Dictated: 08/02/2016 4:08 pm Dictating Physician: MD KEN STEPHEN M Signed Date and Time: 08/02/2016 4:08 pm Signed by: MD KEN STEPHEN M [facility] NM Rad Signatureon 7 NM Rad Signature Patient Name: LC GRUBBS Nuc Med Exam Date/Time 08/02/2016 11:32:20 EDT Exam NM Rad Signature Ordering Physician VIVIANA, NANCY NM Accession Number [id number] Reason For Exam Rad signature Report --------- --- Indications: (E66.3,E78.5,142.0,Z95 .810). --------- --- Summary: 1. Procedure narrative: Regadenoson stress test. Stress testing was performed, with regadenoson by intravenous bolus at one minute into the protocol, for a total dose of 0.4mgover 10.00 sec, followed by a 5 ml saline flush. Exercise for 4 minutes completed by low level exercise. A pharmacologic approach was used because the patient was physically unable to exercise. 2. Stress: Peak heart rate during stress was 72 bpm. (46% of maximal predicted heart rate). The maximal predicted heart rate was 155 bpm.The heart rate response to stress is normal. The rate-pressure product for the peak heart rate and blood pressure was 93336 mm Hg/min. The patient experienced no chest pain during stress. 3. Stress ECG conclusions: The stress ECG is equivocal for ischemia. Cannot assess the ST segments with a paced QRS. 4. Left ventricular systolic function is depressed; there appears to be left ventricular enlargement and diffuse hypokinesis.. 5. Small to moderate reversible finding in the anteroseptal wall of questionable significance, given the overall poor quality of the exam. Mild ischemic change not excluded. Radiologist Confirmation: The SPECT perfusion imaging portion of the study was interpreted and reported by Kathrine Hernandez MD on 08/02/2016 03:51 PM. Critical Result: Results were telephoned to to Dr Mendoza, on 08/02/2016, at 03:59 PM. --------- --- History: NONE The last beta liv was taken by the patient on 08/01/2016 00:00 AM. Hypertension treated. Diabetic non insulin dependent. Medications: Carvedilol (Coreg). Atorvastatin (Lipitor). Furosemide (Lasix). ALLERGIES : AVELOX. Dyslipidemia. Asthma. Pacemaker. ICD. Family history of cardiovascular disease. Patient is NPO per policy. No caffeine per policy. --------- --- Study data: Bra or chest circumference is 50 in. The patient's lungs are clear to auscultation. Heart auscultation by RN revealed a regular rate and rhythm. Pre pain assessment is 0 out of 10. Post pain assessment is 0 out of 10. Patient status: Outpatient. Gated SPECT; rest/stress. One-day Sestamibi. Consent: The procedure was reviewed with the patient and the patient voices understanding. Study completion: The patient tolerated the procedure well and was discharged from the lab. There were no complications. Discharge: Discharge instruction given. --------- --- Procedure data: Initial setup. The patient was brought to the laboratory. A baseline ECG was recorded. Surface ECG leads and blood pressure measurements were monitored. IV access verified #20 LEFT AC. IV patent, site benign. IV discontinued, site benign. Regadenoson stress test. Stress testing was performed, with regadenoson by intravenous bolus at one minute into the protocol, for a total dose of 0.4mgover 10.00 sec, followed by a 5 ml saline flush. Exercise for 4 minutes completed by low level exercise. A pharmacologic approach was used because the patient was physically unable to exercise. --------- --- Baseline ECG: Normal sinus rhythm with 1:1 AV pacing. Stress protocol: + +--+---- -------+ + + !Stage !HR!BP (mmHg) !ST/T !Symptoms ! + +--+---- -------+ + + !Rest !66!114/69 (84)!Normal !None ! + +--+---- -------+ + + !Peak stress !72!143/62 (89)!Same as above!LIGHTHEADED! + +--+---- -------+ + + !Recovery !68!126/68 (87)!Same as above!Subsiding ! + +--+---- -------+ + + !Late recovery!63!107/62 (77)!Same as above!None ! + +--+---- -------+ + + Stress results: Peak heart rate during stress was 72 bpm. (46% of maximal predicted heart rate). The maximal predicted heart rate was 155 bpm.The heart rate response to stress is normal. The rate-pressure product for the peak heart rate and blood pressure was 54183 mm Hg/min. The patient experienced no chest pain during stress. Stress ECG: The stress ECG is equivocal for ischemia. Cannot assess the ST segments with a paced QRS. Isotope administration: + +------ + + !Stage !Rest !Stress ! + +------ + + !Agent !Tc[99m]-sestamibi!Tc[ 99m]-sestamibi ! + +------ + + !Dose !8.8 mCi !35 mCi ! + +------ + + !Injection time!08:30 AM !09:46 AM ! + +------ + + !Route !IV !IV ! + +------ + + !Injected by !PC !BJB ! + +------ + + !Injection at ! !1 min before end of exercise! + +------ + + Image properties: Imaging information: The study was gated. The image quality was poor. Rotating projection images reveal subdiaphragmatic activity and generalized soft tissue attenuation. Myocardial perfusion imaging: The TID ratio is 0.88. There is a small to moderate, mild, reversible defect involving the mid anteroseptal wall(s). Gated SPECT: The left ventricular end-diastolic volume is 147 ml. The left ventricular end-systolic volume is 98 ml. The calculated left ventricular ejection fraction during stress is33 %. LV global systolic function is depressed. Final Signed Date and Time: 07/20/2017 12:08 pm Signed by: MD WAN JOHN Transcribed Date and Time: 07/20/2017 10:14 Transcribed By:FREYA [facility] Chart Maintenanceon 04-22-19 17 Alanine aminotransferase (ALT) 36 U/L Invalid Interpretation Code [facility] Work Phone: Alkaline phosphatase (ALP) 66 U/L Invalid Interpretation Code [facility] Work Phone: Aspartate aminotransferase (AST) 22 U/L Invalid Interpretation Code [facility] Work Phone: Bilirubin (total) 2.60 mg/dL High [facility] Work Phone: BUN/Creatinine Ratio 13.3 mg/mg Invalid Interpretation Code [facility] Work Phone: Cholesterol 111 mg/dL Invalid Interpretation Code [facility] Work Phone: HDL Cholesterol 33 mg/dL Invalid Interpretation Code [facility] Work Phone: Hemoglobin A1c/Hemoglobin.total mass fraction (Bld) 5.5 % Invalid Interpretation Code [facility] Work Phone: LDL Cholesterol 48 mg/dL Invalid Interpretation Code [facility] Work Phone: Triglyceride 151 mg/dL Invalid Interpretation Code [facility] Work Phone: Office Visit: New patient co nsulton 01-27-2016 Adult depression screening assessment Adult depression screening assessment Invalid Interpretation Code [facility] Work Phone: Append: Dr. Shai Cordoba 10-28-2015 Clinical consultation report (record artifact) [id number]^04/29/19 16 Invalid Interpretation Code [facility] Work Phone: Clinical Lists Update: Prelo outside sales consultant 08-12-2015 Left ventricular Ejection fraction 65 % Invalid Interpretation Code [facility] Work Phone: Clinical Lists Update: Prelo outside sales consultant 06-04-2015 BNP 65.8 pg/mL Invalid Interpretation Code [facility] Work Phone: [phone] eGFR (non-black) 68 mL/min/{1.73_m2} Invalid Interpretation Code [facility] Work Phone: [phone] eGFR (non-black) 56 mL/min/{1.73_m2} Low [facility] Work Phone: Lab Report: Basic Metabolic Profile (BMP)on 05-12-2015 Creatinine 51.11 mL/min Invalid Interpretation Code [facility] Work Phone: [phone] eGFR (non-black) 52 mL/min/{1.73_m2} Low >60 [facility] Work Phone: eGFR (non-black) 62 mL/min/{1.73_m2} Invalid Interpretation Code >60 [facility] Work Phone: Lab Report: Prothrombin Time w/INRon 04-22-2015 INR Coag RelTime (PPP) 1.4 {INR} Invalid Interpretation Code [facility] Work Phone: Prothrombin time (PT) Coag time (PPP) 17.5 s High 11.7-14.9 [facility] Work Phone: Lab Report: BNP,B-Type NATRI URETIC PEPTIDEon 03-10-2015 BNP 109.4 pg/mL High 0-100 [facility] Work Phone: Lab Report: CBC W/Diff, Auto matedon 03-10-2015 Absolute Neut 5.2 X10 3/UL Invalid Interpretation Code 2.0-7.7 [facility] Work Phone: [phone] Basophils/100 WBC Auto (Bld) 0.4 % Invalid Interpretation Code 0-1 [facility] Work Phone: [phone] Eosinophils/100 leukocytes 3.2 % Invalid Interpretation Code 0-5 [facility] Work Phone: Immature granulocytes/100 WBC (Bld) 0.300 % Invalid Interpretation Code 0.0-0.9 [facility] Work Phone: [phone] Lymphocytes 1.53 X10 3/UL Invalid Interpretation Code 0.83-4.51 [facility] Work Phone: [phone] Lymphocytes/100 leukocytes 19.7 % Invalid Interpretation Code 19-41 [facility] Work Phone: [phone] Monocytes/100 leukocytes 9.1 % Invalid Interpretation Code 0-10 [facility] Work Phone: [phone] Neutrophils/100 WBC Auto (Bld) 67.3 % Invalid Interpretation Code 47-70 [facility] Work Phone: RDW SD 49.5 fL High 35.1-43.9 [facility] [employer] Phone: Office Visit: [facility] 11-28-19 15 cardiac risk group C Invalid Interpretation Code [facility] [employer] Phone: General cardiovascular disease 10Y risk [#] [place].D'Khadaramrit 14 % Invalid Interpretation Code [facility] [employer] Phone: Lab Report: LIPIDon 06-01-19 13 very low density lipoproteins 24 mg/dL Normal 5-40 [facility] Work Phone: Lab Report: LIVERon 06-01-19 13 Albumin 3.7 g/dL Normal 3.4-5.0 [facility] [employer] Phone: Bilirubin (direct) 0.25 mg/dL Normal 0.00-0.30 [facility] [employer] Phone: Lab Report: MGon 05-31-2012 Magnesium 1.9 mg/dL Normal 1.8-2.4 [facility] Work Phone: Lab Report: TSHon 05-31-2012 Thyroid stimulating hormone (TSH) 1.87 u[iU]/mL Normal 0.358-3.74 [facility] [employer] Phone: Replaced Document: [employer] E CG Observationson 05-19-2011 Pulse (Heart Rate) 498 ms Invalid Interpretation Code [facility] [employer] Phone: Lab Report: PTTon 04-07-2011 aPTT 29.8 s Normal 24.1-36.2 [facility] [employer] Phone: Lab Report: T4on 01-24-2011 Thyroxine (T4) 7.0 ug/dL Normal 4.5-12.1 [facility] [employer] Phone: Office Visit: New patient co nsulton 01-08-2001 Colonoscopy (procedure) Colonoscopy (procedure) Invalid Interpretation Code [facility] [employer] Phone: Vital Signs Date Time Vital Sign Value Performing Clinician Facility 08-14-2024 09:33-0400 Body height 175.[address] Marciano Weaver MD Work Phone: [facility] 08-14-2024 09:33-0400 Body mass index (BMI) [Ratio] 41.3 kg/m2 Dr. Marciano Weaver MD Work Phone: [facility] 08-14-2024 09:33-0400 Body weight [address] Marciano Weaver MD Work Phone: [facility] 08-14-2024 09:33-0400 Diastolic blood pressure 72 mm[Hg] Dr. Marciano Weaver MD Work Phone: [facility] 08-14-2024 09:33-0400 Systolic blood pressure 136 mm[Hg] Dr. Marciano Weaver MD Work Phone: [facility] 01-10-2024 12:25-0500 Body height 175.3 cm Shelmith Witherell GATEHOUSE ATTENDANT.ENVIRONMENTAL SCIENCE TECHNICIAN Work Phone: [facility] 01-10-2024 12:25-0500 Body mass index (BMI) [Ratio] 41.35 kg/m2 Shelmith Witherell GATEHOUSE ATTENDANT.ENVIRONMENTAL SCIENCE TECHNICIAN Work Phone: [facility] 01-10-2024 12:25-0500 Body weight 127.01 kg Shelmith Witherell GATEHOUSE ATTENDANT.ENVIRONMENTAL SCIENCE TECHNICIAN Work Phone: [facility] 01-10-2024 12:25-0500 Diastolic blood pressure 88 mm[Hg] Shelmith Witherell GATEHOUSE ATTENDANT.ENVIRONMENTAL SCIENCE TECHNICIAN Work Phone: [facility] 01-10-2024 12:25-0500 Systolic blood pressure 147 mm[Hg] Shelmith Witherell GATEHOUSE ATTENDANT.ENVIRONMENTAL SCIENCE TECHNICIAN Work Phone: [facility] 11-06-2023 13:51-0400 Body height 175.3 cm Acute 359 Work Phone: [facility] 11-06-2023 13:51-0400 Body mass index (BMI) [Ratio] 39.87 kg/m2 Acute 359 Work Phone: [facility] 11-06-2023 13:51-0400 Body weight 122.47 kg Acute 359 Work Phone: [facility] 11-06-2023 13:51-0400 Diastolic blood pressure 70 mm[Hg] Acute 359 Work Phone: [facility] 11-06-2023 13:51-0400 Heart rate 69 /min Acute 359 Work Phone: [facility] 11-06-2023 13:51-0400 Respiratory rate 20 /min Acute 359 Work Phone: [facility] 11-06-2023 13:51-0400 Systolic blood pressure 114 mm[Hg] Acute 359 Work Phone: [facility] 10-02-2023 14:51-0400 Body height 175.3 cm Wali Bravo MD Work Phone: [facility] 10-02-2023 14:51-0400 Body mass index (BMI) [Ratio] 42.03 kg/m2 Wali Bravo MD Work Phone: [facility] 10-02-2023 14:51-0400 Body weight 129.09 kg Wali Bravo MD Work Phone: [facility] 10-02-2023 14:51-0400 Diastolic blood pressure 87 mm[Hg] Wali Bravo MD Work Phone: [facility] 10-02-2023 14:51-0400 Heart rate 68 /min Wali Bravo MD Work Phone: [facility] 10-02-2023 14:51-0400 Systolic blood pressure 161 mm[Hg] Wali Bravo MD Work Phone: [facility] 07-01-2023 09:03-[address] Cuff Size DR LYDIA KELLY MD [facility] 07-01-2023 09:03-[address] LYDIA KELLY MD [address] [place] [address] 07-01-2023 09:03-[address] LYDIA Mcintosh MD [address] [place] [address] 07-01-2023 09:03-0400 Diastolic Blood Pressure Non-Invasive 75 mm[Hg] DR LYDIA KELLY MD [address] [place] [address] 07-01-2023 09:03-0400 Heart rate 80 /min DR LYDIA KELLY MD [address] [place] [address] 07-01-2023 09:03-0400 Mean blood pressure 96 mm[Hg] DR LYDIA KELLY MD [address] [place] [address] 07-01-2023 09:03-0400 Reason For Taking VItal Signs DR LYDIA KELLY MD [address] [place] [address] 07-01-2023 09:03-0400 Respiratory rate 18 /min DR LYDIA KELLY MD [address] [place] [address] 07-01-2023 09:03-0400 Systolic Blood Pressure Non-Invasive 158 mm[Hg] DR LYDIA KELLY MD [address] [place] [address] 07-01-2023 07:01-[address] Cuff Size DR LYDIA KELLY MD [address] [place] [address] 07-01-2023 07:01-[address] LYDIA KELLY MD [address] [place] [address] 07-01-2023 07:01-[address] LYDIA Mcintosh MD [address] [place] [address] 07-01-2023 07:01-0400 Body temperature 97.7 [degF] DR LYDIA KELLY MD [address] [place] [address] 07-01-2023 07:01-0400 Diastolic Blood Pressure Non-Invasive 82 mm[Hg] DR LYDIA KELLY MD [address] [place] [address] 07-01-2023 07:01-0400 Heart rate 75 /min DR LYDIA KELLY MD [address] [place] [address] 07-01-2023 07:01-0400 Reason For Taking VItal Signs DR LYDIA KELLY MD [address] [place] [address] 07-01-2023 07:01-0400 Respiratory rate 16 /min DR LYDIA KELLY MD [address] [place] [address] 07-01-2023 07:01-0400 Systolic Blood Pressure Non-Invasive 144 mm[Hg] DR LYDIA KELLY MD [address] [place] [address] 07-01-2023 06:19-0400 Heart rate 80 /min DR LYDIA KELLY MD [address] [place] [address] 07-01-2023 05:31-[address] Cuff Size DR LYDIA KELLY MD [address] [place] [address] 07-01-2023 05:31-[address] LYDIA KELLY MD [address] [place] [address] 07-01-2023 05:31-[address] LYDIA Mcintosh MD [address] [place] [address] 07-01-2023 05:31-0400 Body temperature 97.7 [degF] DR LYDIA KELLY MD [address] [place] [address] 07-01-2023 05:31-0400 Diastolic Blood Pressure Non-Invasive 78 mm[Hg] DR LYDIA KELLY MD [address] [place] [address] 07-01-2023 05:31-0400 Reason For Taking VItal Signs DR LYDIA KELLY MD [address] [place] [address] 07-01-2023 05:31-0400 Respiratory rate 16 /min DR LYDIA KELLY MD [address] [place] [address] 07-01-2023 05:31-0400 Systolic Blood Pressure Non-Invasive 130 mm[Hg] DR LYDIA KELLY MD [address] [place] [address] 06-30-2023 18:29-0400 Body temperature 97.52 [degF] DR LYDIA KELLY MD [address] [place] [address] 06-30-2023 17:10-0400 Body height 175.[address] LYDIA KELLY MD [address] [place] [address] 06-30-2023 17:10-0400 Body weight 129.[address] LYDIA KELLY MD [address] [place] [address] 06-30-2023 17:10-0400 Body weight 42.21 kg/m2 DR LYDIA KELLY MD [address] [place] [address] 06-30-2023 15:30-0400 Body temperature 96.98 [degF] DR LYDIA KELLY MD [address] [place] [address] 06-30-2023 15:20-0400 Respiratory Rate - Anes 0 br/min DR LYDIA KELLY MD [address] [place] [address] 06-30-2023 15:15-0400 Respiratory Rate - Anes 18 br/min DR LYDIA KELLY MD [address] [place] [address] 06-30-2023 15:10-0400 Respiratory Rate - Anes 8 br/min DR LYDIA KELLY MD [address] [place] [address] 06-30-2023 15:00-0400 Body temperature 94.37 [degF] DR LYDIA KELLY MD [address] [place] [address] 06-30-2023 14:55-0400 Body temperature 94.26 [degF] DR LYDIA KELLY MD [address] [place] [address] 06-30-2023 14:50-0400 Body temperature 94.5 [degF] DR LYDIA KELLY MD [address] [place] [address] 06-30-2023 09:39-0400 Body height 175.[address] LYDIA KELLY MD [address] [place] [address] 06-30-2023 09:39-0400 Body weight 129.[address] LYDIA KELLY MD [facility] 06-30-2023 09:39-0400 Heart rate 82 /min DR LYDIA KELLY MD [facility] 11-12-2022 21:37-0400 Diastolic blood pressure 79 mm[Hg] Dr. Marciano Weaver Work Phone: [facility] 11-12-2022 21:37-0400 Heart rate 79 /min Dr. Marciano Weaver Work Phone: [facility] 11-12-2022 21:37-0400 Respiratory rate 18 /min Dr. Marciano Weaver Work Phone: [facility] 11-12-2022 21:37-0400 SaO2% (BldA) [Mass fraction] 95 % Dr. Marciano Weaver Work Phone: [facility] 11-12-2022 21:37-0400 Systolic blood pressure 143 mm[Hg] Dr. Marciano Weaver Work Phone: [facility] 11-12-2022 19:02-0400 Body mass index (BMI) [Ratio] 41.5 kg/m2 Dr. Marciano Weaver Work Phone: [facility] 11-12-2022 19:02-0400 Body weight 127.[address] Marciano Weaver Work Phone: [facility] 11-12-2022 18:40-0400 Body height 175.[address] Marciano Weaver Work Phone: [facility] 11-12-2022 18:40-0400 Body temperature 97.6 [degF] Dr. Marciano Weaver Work Phone: [facility] 09-27-2022 12:49-0400 Body height 175.[address] Marciano Weaver Work Phone: [facility] 09-27-2022 12:49-0400 Body mass index (BMI) [Ratio] 42.8 kg/m2 Dr. Marciano Weaver Work Phone: [facility] 09-27-2022 12:49-0400 Body temperature 97.5 [degF] Dr. Marciano Weaver Work Phone: [facility] 09-27-2022 12:49-0400 Body weight 131.[address] Marciano Weaver Work Phone: [facility] 09-27-2022 12:49-0400 Diastolic blood pressure 83 mm[Hg] Dr. Marciano Weaver Work Phone: [facility] 09-27-2022 12:49-0400 Heart rate 76 /min Dr. Marciano Weaver Work Phone: [facility] 09-27-2022 12:49-0400 Respiratory rate 20 /min Dr. Marciano Weaver Work Phone: [phone] [place] [address] 09-27-2022 12:49-0400 SaO2% (BldA) [Mass fraction] 95 % Dr. Marciano Weaver Work Phone: [facility] 09-27-2022 12:49-0400 Systolic blood pressure 144 mm[Hg] Dr. Marciano Weaver Work Phone: [facility] 04-19-2022 14:02-0400 Body height 175.[address] Marciano Weaver Work Phone: [phone])[phone] [place] [address] 04-19-2022 14:02-0400 Body mass index (BMI) [Ratio] 43.7 kg/m2 Dr. Marciano Weaver Work Phone: [facility] 04-19-2022 14:02-0400 Body weight 134.[address] Marciano Weaver Work Phone: 2([phone] [place] [address] 03-31-2022 05:50-0500 Body mass index (BMI) [Ratio] 44.3 kg/m2 Dr. Marciano Weaver Work Phone: [facility] 03-31-2022 05:50-0500 Body temperature 97.6 [degF] Dr. Marciano Weaver Work Phone: [phone] [place] [address] 03-31-2022 05:50-0500 Body weight 136.[address] Marciano Weaver Work Phone: [facility] 03-31-2022 05:50-0500 Diastolic blood pressure 94 mm[Hg] Dr. Marciano Weaver Work Phone: [facility] 03-31-2022 05:50-0500 Heart rate 80 /min Dr. Marciano Weaver Work Phone: [facility] 03-31-2022 05:50-0500 Respiratory rate 20 /min Dr. Marciano Weaver Work Phone: [facility] 03-31-2022 05:50-0500 SaO2% (BldA) [Mass fraction] 97 % Dr. Marciano Weaver Work Phone: [facility] 03-31-2022 05:50-0500 Systolic blood pressure 152 mm[Hg] Dr. Marciano Weaver Work Phone: [facility] 01-06-2022 14:33-0500 Body height 175.[address] Marciano Weaver Work Phone: [facility] 01-06-2022 14:33-0500 Body mass index (BMI) [Ratio] 44.6 kg/m2 Dr. Marciano Weaver Work Phone: [facility] 01-06-2022 14:33-0500 Body weight 136.[address] Marciano Weaver Work Phone: [facility] 01-06-2022 14:33-0500 Diastolic blood pressure 95 mm[Hg] Dr. Marciano Weaver Work Phone: [facility] 01-06-2022 14:33-0500 Heart rate 80 /min Dr. Marciano Weaver Work Phone: [facility] 01-06-2022 14:33-0500 Respiratory rate 26 /min Dr. Marciano Weaver Work Phone: [facility] 01-06-2022 14:33-0500 SaO2% (BldA) [Mass fraction] 95 % Dr. Marciano Weaver Work Phone: [facility] 01-06-2022 14:33-0500 Systolic blood pressure 157 mm[Hg] Dr. Marciano Weaver Work Phone: [facility] 10-26-2021 12:53-0400 Body height 172 cm Belgica Hasenstaub GATEHOUSE ATTENDANT.ENVIRONMENTAL SCIENCE TECHNICIAN Work Phone: [facility] 10-26-2021 12:53-0400 Body weight 137.8 kg Belgica Hasenstaub GATEHOUSE ATTENDANT.ENVIRONMENTAL SCIENCE TECHNICIAN Work Phone: [facility] 10-26-2021 12:53-0400 Diastolic blood pressure 88 mm[Hg] Belgica Hasenstaub GATEHOUSE ATTENDANT.ENVIRONMENTAL SCIENCE TECHNICIAN Work Phone: [facility] 10-26-2021 12:53-0400 Heart rate 80 /min Belgica Hasenstaub GATEHOUSE ATTENDANT.ENVIRONMENTAL SCIENCE TECHNICIAN Work Phone: [facility] 10-26-2021 12:53-0400 Systolic blood pressure 148 mm[Hg] Belgica Hasenstaub GATEHOUSE ATTENDANT.ENVIRONMENTAL SCIENCE TECHNICIAN Work Phone: [facility] 08-20-2021 08:24-0400 Body height [address] Work Phone: [facility] 08-20-2021 08:24-0400 Body weight 133.[address] Work Phone: [facility] 08-20-2021 08:22-0400 Body height 172 cm Kimmy Gromovsky GATEHOUSE ATTENDANT.ENVIRONMENTAL SCIENCE TECHNICIAN Work Phone: [facility] 08-20-2021 08:22-0400 Body weight 133.36 kg Kimmy Gromovsky GATEHOUSE ATTENDANT.ENVIRONMENTAL SCIENCE TECHNICIAN Work Phone: [facility] 08-20-2021 08:22-0400 Diastolic blood pressure 101 mm[Hg] Kimmy Gromovsky GATEHOUSE ATTENDANT.ENVIRONMENTAL SCIENCE TECHNICIAN Work Phone: [facility] 08-20-2021 08:22-0400 Heart rate 80 /min Kimmy Gromovsky GATEHOUSE ATTENDANT.ENVIRONMENTAL SCIENCE TECHNICIAN Work Phone: [facility] 08-20-2021 08:22-0400 Systolic blood pressure 171 mm[Hg] Kimmy Younggurvinder GATEHOUSE ATTENDANT.ENVIRONMENTAL SCIENCE TECHNICIAN Work Phone: [facility] 08-05-2021 11:20-0400 Body weight 136.99 kg Lc López Jr., MD Work Phone: [facility] 08-05-2021 11:20-0400 Diastolic blood pressure 86 mm[Hg] Lc López Jr., MD Work Phone: [facility] 08-05-2021 11:20-0400 Heart rate 68 /min Lc López Jr., MD Work Phone: [facility] 08-05-2021 11:20-0400 SaO2% (BldA) [Mass fraction] 99 % Lc López Jr., MD Work Phone: [facility] 08-05-2021 11:20-0400 Systolic blood pressure 135 mm[Hg] Lc López Jr., MD Work Phone: [facility] 07-30-2021 14:09-0400 Body height 172 cm Belgica Hasenstaub GATEHOUSE ATTENDANT.ENVIRONMENTAL SCIENCE TECHNICIAN Work Phone: [facility] 07-30-2021 14:09-0400 Body weight 135.35 kg Belgica Hasenstaub GATEHOUSE ATTENDANT.ENVIRONMENTAL SCIENCE TECHNICIAN Work Phone: [facility] 07-30-2021 14:09-0400 Diastolic blood pressure 96 mm[Hg] Belgica Hasenstaub GATEHOUSE ATTENDANT.ENVIRONMENTAL SCIENCE TECHNICIAN Work Phone: [facility] 07-30-2021 14:09-0400 Heart rate 76 /min Belgica Hasenstaub GATEHOUSE ATTENDANT.ENVIRONMENTAL SCIENCE TECHNICIAN Work Phone: [facility] 07-30-2021 14:09-0400 Respiratory rate 16 /min Belgica Hasenstaub GATEHOUSE ATTENDANT.ENVIRONMENTAL SCIENCE TECHNICIAN Work Phone: [facility] 07-30-2021 14:09-0400 SaO2% (BldA) [Mass fraction] 95 % Belgica Hasenstaub GATEHOUSE ATTENDANT.ENVIRONMENTAL SCIENCE TECHNICIAN Work Phone: [facility] 07-30-2021 14:09-0400 Systolic blood pressure 154 mm[Hg] Belgica Pineda APRN.ENVIRONMENTAL SCIENCE TECHNICIAN Work Phone: [facility] 11-29-2016 07:25-0400 Body Temperature 97.5 [degF] Lashae [facility] [place] Work Phone: 11-29-2016 07:25-0400 BP Diastolic 76 mm[Hg] [facility]ae [facility] Work Phone: 11-29-2016 07:25-0400 BP Systolic 123 mm[Hg] [facility]ae [facility] [place] Work Phone: 11-29-2016 07:25-0400 Height 175.26 cm [facility]ae [facility] Work Phone: 11-29-2016 07:25-0400 Pulse (Heart Rate) 76 /min Lashae Drvier [facility] [place] Work Phone: 11-29-2016 07:25-0400 Respiratory Rate 20 /min [facility] Work Phone: 11-16-2016 07:46-0400 BMI (Body Mass Index) 51.83 kg/m2 Lashae Driver [facility] Work Phone: 11-16-2016 07:46-0400 Weight 159.21 kg [facility] [place] Work Phone: 05-16-2016 14:17-0400 Body Temperature 98.01 [degF] L[facility]ae [facility] [place] Work Phone: 05-16-2016 14:17-0400 BP Diastolic 77 mm[Hg] [facility] [place] Work Phone: 05-16-2016 14:17-0400 BP Systolic 136 mm[Hg] [facility] [place] Work Phone: 05-16-2016 14:17-0400 Height 175.26 cm Lashae [facility] [place] Work Phone: 05-16-2016 14:17-0400 Weight 162.66 kg [facility] [place] Work Phone: 01-27-2016 14:56-0500 BSA (Body Surface Area) 2.59 m2 Lashae [facility] [place] Work Phone: 01-14-2011 13:55-0500 BP Diastolic 86 mm[Hg] [facility] Work Phone: 01-14-2011 13:55-0500 BP Systolic 156 mm[Hg] [facility]ae [facility] [place] Work Phone: Encounters Encounter Date Encounter Type Care Provider Facility Start: 08-22-[address] Al Espinoza MD -Outpatient Bone Densitometry Work Phone: Start: 08-20-2024 End: 08-20-2024 Patient encounter procedure Lisa Victoria APRN.ENVIRONMENTAL SCIENCE TECHNICIAN Work Phone: [facility] Comment on above: Radiology Review Start: 08-20-2024 End: 08-21-2024 Telephone encounter Pati Frausto MD Work Phone: General Surgery Comment on above: Internal Referrals/r esources Start: 08-16-2024 End: 08-16-[address] Al Espinoza MD -Radiology [place] Work Phone: Start: 08-16-2024 End: 08-16-2024 ambulatory Al Espinoza Facility:[facility] Start: 08-14-2024 End: 08-14-[address] Mera Eddy DC -[facility] Work Phone: Start: 08-14-2024 End: 08-14-[address] Marciano Weaver MD Work Phone: -[facility] Start: 08-12-2024 End: 08-12-2024 ambulatory LUCIE REYNOLDS Facility:[facility] Start: 08-12-2024 End: 08-12-2024 Subsequent hospital visit by physician Ct Prep [facility] W[facility] Cat Scan Comment on above: Splenomegaly, not el sewhere classified [R16.1] Start: 08-08-2024 End: 08-08-2024 Orders Only Lucie Reynolds APRN.ENVIRONMENTAL SCIENCE TECHNICIAN Work Phone: [facility] Comment on above: Screening for nephro dustin (Primary Dx) Start: 07-25-2024 End: 07-30-2024 Telephone encounter Lucie Reynolds APRN.ENVIRONMENTAL SCIENCE TECHNICIAN Work Phone: [facility] Comment on above: Appointment Start: 07-10-2024 End: 07-10-[address] Marciano Weaver MD Work Phone: [facility] Work Phone: Start: 07-10-2024 End: 07-10-[address] Marciano Weaver MD -Laboratory [facility] Start: 07-10-2024 End: 07-10-2024 ambulatory Marciano [place] Facility:[facility] Start: 04-23-2024 End: 04-23-2024 Telephone encounter Wali Bravo MD Work Phone: Cardiology Comment on above: Forms Start: 03-21-2024 ambulatory Marciano [place] Facility:[facility] Start: 03-05-2024 End: 03-05-2024 Follow-up encounter Lucie Reynolds APRN.ENVIRONMENTAL SCIENCE TECHNICIAN Work Phone: [facility] Comment on above: Actionable Findings Follow Up Start: 03-05-2024 End: 03-05-2024 Patient encounter procedure Lucie Reynolds APRN.ENVIRONMENTAL SCIENCE TECHNICIAN Work Phone: [facility] Start: 03-05-2024 End: 03-05-2024 ambulatory LUCIE REYNOLDS Facility:[facility] Start: 02-21-2024 End: 07-11-2024 Telephone encounter Lucie Reynolds APRN.CNP Work Phone: [facility] Start: 02-13-2024 End: 02-13-2024 E-mail encounter from caregiver Lucie Reynolds APRN.ENVIRONMENTAL SCIENCE TECHNICIAN Work Phone: [facility] Start: 02-13-2024 End: 02-13-2024 Patient encounter procedure Lucie Reynolds APRN.ENVIRONMENTAL SCIENCE TECHNICIAN Work Phone: [facility] Comment on above: Actionable Finding Start: 01-10-2024 End: 01-10-2024 Subsequent hospital visit by physician [facility] Work Phone: Cardiology Comment on above: Pacemaker reprogramm ing/check [Z45.018] Start: 01-10-2024 End: 01-10-2024 Office outpatient visit 15 minutes Arturo Cobos ENVIRONMENTAL SCIENCE TECHNICIAN Work Phone: Cardiology Comment on above: Atrial fibrillation, persistent (HCC) (Primary Dx) Start: 01-10-2024 End: 01-10-2024 ambulatory JAVIERGAELNatacha COBOS Facility:[facility] Start: 01-09-2024 End: 01-09-2024 ambulatory Wali Bravo MD Work Phone: Cardiology Comment on above: Patient Education (D CC) Start: 12-29-2023 End: 12-29-2023 ambulatory Marciano [place] [facility] Start: 2023 End: 12-13-2023 Orders Only Wali Bravo MD Work Phone: Cardiology Comment on above: Atrial tachycardia ( HCC) (Primary Dx) Future Appointment ( DCC) Start: 11-30-2023 End: 11-30-2023 Telephone encounter Wali Bravo MD Work Phone: Cardiology Start: 11-15-2023 End: 11-15-2023 Telephone encounter Wali Bravo MD Work Phone: Cardiology Start: 11-06-2023 End: 11-06-2023 Patient encounter procedure [facility] Work Phone: [facility] Comment on above: S/P exploratory lapa rotomy (Primary Dx); S/P repair of ventral hernia; Encounter for staple removal Start: 11-06-2023 End: 11-06-2023 ambulatory MARCIANO WEAVER Facility:[facility] Start: 10-17-2023 End: 10-18-2023 Evaluation and management of inpatient MARCIANO WEAVER Facility:[facility] Start: 10-16-2023 Emergency department patient visit MARCIANO WEAVER Facility:[facility] Start: 10-02-2023 End: 10-02-2023 ambulatory WALI BRAVO Facility:[facility] Start: 10-02-2023 End: 10-02-2023 Patient encounter procedure Wali Bravo MD Work Phone: Cardiology Comment on above: Atrial fibrillation, persistent (HCC) (Primary Dx); Cardiac resynchronization therapy defibrillator (INCINERATOR ATTENDANT-D) in place; Non-ischemic cardiomyopathy (HCC) Start: 10-02-2023 End: 10-02-2023 Subsequent hospital visit by physician [facility] Work Phone: Cardiology Comment on above: Pacemaker reprogramm ing/check [Z45.018] Start: 10-02-2023 End: 10-02-2023 ambulatory WALI BRAVO Facility:[facility] Start: 09-26-2023 End: 09-26-2023 ambulatory Eri Corral NP [facility] Start: 09-26-2023 End: 09-26-2023 ambulatory Marciano [place] Facility:[facility] Start: 08-15-2023 Orders Only Wali Bravo MD Work Phone: Cardiology Comment on above: Atrial fibrillation, unspecified type (HCC) (Primary Dx); Pacemaker Start: 06-30-2023 End: 07-01-2023 ambulatory LYDIA KELLY Facility:A Start: 06-30-2023 End: 07-01-[address] LYDIA KELLY MD [facility] Start: 06-08-2023 End: 06-08-2023 ambulatory LYDIA KELLY Facility:[facility] Start: 06-08-2023 End: 06-08-[address] LYDIA KELLY MD [facility] Start: 04-05-2023 End: 04-05-2023 ambulatory KATHRINE MORALES MD Facility:[facility] Start: 04-05-2023 End: 04-05-2023 Patient encounter procedure KATHRINE MORALES MD [facility] Start: 03-27-2023 Registered Recurring [facility] Work Phone: Start: 03-23-2023 End: 03-23-2023 ambulatory [facility] Work Phone: Start: 03-23-2023 End: 03-23-2023 Patient encounter procedure [facility] Work Phone: Start: 01-12-2023 Refill Belgica Farfan aub GATEHOUSE ATTENDANT.ENVIRONMENTAL SCIENCE TECHNICIAN Work Phone: [facility] Comment on above: Refill Request Start: 01-02-2023 End: 01-02-[address] Marciano Weaver Work Phone: [facility] Work Phone: Start: 01-02-2023 End: 01-02-[address] Marciano Weaver Work Phone: [facility] Work Phone: Start: 12-28-2022 End: 12-28-2022 ambulatory [facility] Work Phone: Start: 12-28-2022 End: 12-28-2022 [facility] Start: 12-28-[address] [facility] Weaver [facility] Start: 12-20-2022 ambulatory LYDIA Rocha ty:A Start: 11-12-2022 End: 11-12-2022 Emergency department patient visit Dr. Marciano Weaver Work Phone: [facility]-Emergency Department Work Phone: Start: 10-23-2022 Refill Belgica Baezjosh aub GATEHOUSE ATTENDANT.ENVIRONMENTAL SCIENCE TECHNICIAN Work Phone: [facility] Comment on above: Refill Request Start: 10-07-2022 End: 10-07-[address] Marciano Weaver Work Phone: [facility] Work Phone: Start: 10-07-2022 End: 10-07-[address] Marciano Weaver Work Phone: [facility]-Physical Therapy Work Phone: Start: 09-29-2022 Refill Belgica Perladiallo aub GATEHOUSE ATTENDANT.ENVIRONMENTAL SCIENCE TECHNICIAN Work Phone: [facility] Comment on above: Refill Request Start: 09-27-2022 End: 09-27-[address] Marciano Weaver Work Phone: [facility] Work Phone: Start: 08-30-2022 End: 08-30-[address] Marciano Weaver Work Phone: [facility] Work Phone: Start: 08-30-2022 End: 08-30-[address] Marciano Weaver Work Phone: [facility] Work Phone: Start: 08-30-[address] Marciano Weaver Work Phone: [facility]-Physical Therapy Work Phone: Start: 07-29-2022 End: 07-29-[address] Marciano Weaver Work Phone: [facility] Work Phone: Start: 07-05-2022 End: 07-05-[address] Marciano Weaver Work Phone: [facility] Work Phone: Start: 05-27-2022 Telephone encounter Belgica steel GATEHOUSE ATTENDANT.ENVIRONMENTAL SCIENCE TECHNICIAN Work Phone: [facility] Comment on above: Missed Appointment Start: 04-19-2022 End: 04-19-[address] Marciano Weaver Work Phone: [facility] Start: 04-18-2022 End: 04-18-[address] Marciano Weaver Work Phone: [facility] Work Phone: Start: 04-18-2022 End: 04-18-[address] Marciano Weaver Work Phone: [facility]-Physical Therapy Start: 04-17-2022 Refill Belgica Farfan audaja GATEHOUSE ATTENDANT.ENVIRONMENTAL SCIENCE TECHNICIAN Work Phone: [facility] Comment on above: Refill Request Start: 04-15-2022 Telephone encounter Krystal cody MD Work Phone: [facility] Comment on above: Appointment Start: 04-13-2022 End: 04-13-[address] Marciano Weaver Work Phone: [facility] Start: 04-12-2022 End: 04-12-[address] Marciano Weaver Work Phone: [facility] Start: 04-07-2022 Refill Belgica Farfan aub GATEHOUSE ATTENDANT.ENVIRONMENTAL SCIENCE TECHNICIAN Work Phone: [facility] Comment on above: Refill Request Start: 03-31-2022 End: 03-31-[address] Marciano Weaver Work Phone: [facility]-Pulmonary Medicine [facility] Start: 03-23-[address] Marciano Weaver Work Phone: [facility]-Physical Therapy Start: 03-17-2022 End: 03-17-[address] Marciano Weaver Work Phone: [facility] Work Phone: Start: 03-17-2022 End: 03-17-[address] Marciano Weaver Work Phone: [facility] Start: 02-06-2022 Refill Belgica parker GATEHOUSE ATTENDANT.ENVIRONMENTAL SCIENCE TECHNICIAN Work Phone: [facility] Comment on above: Refill Request Start: 01-21-2022 Refill Belgica parker GATEHOUSE ATTENDANT.ENVIRONMENTAL SCIENCE TECHNICIAN Work Phone: [facility] Comment on above: Refill Request Start: 01-06-2022 End: 01-06-[address] Marciano Weaver Work Phone: [facility]-[place] [facility] Start: 12-28-2021 End: 12-28-[address] Marciano Weaver Work Phone: [facility] Start: 12-17-2021 Refill Belgica parker GATEHOUSE ATTENDANT.ENVIRONMENTAL SCIENCE TECHNICIAN Work Phone: [facility] Comment on above: Refill Request Start: 10-26-2021 ambulatory Belgica parker GATEHOUSE ATTENDANT.ENVIRONMENTAL SCIENCE TECHNICIAN Work Phone: [facility] Comment on above: lab Start: 10-26-2021 E-mail encounter fro m caregiver Belgica Pineda GATEHOUSE ATTENDANT.ENVIRONMENTAL SCIENCE TECHNICIAN Work Phone: [facility] Start: 10-26-2021 End: 10-26-2021 Patient encounter procedure Belgica Karishma Pineda APRN.ENVIRONMENTAL SCIENCE TECHNICIAN Work Phone: [facility] Comment on above: Class 3 severe obesi ty due to excess calories with body mass index (BMI) of 45.0 to 49.9 in adult, unspecified whether serious comorbidity present (HCC) (Primary Dx); BMI 40.0-44.9, adult (HCC); Dietary counseling and surveillance; Cardiomyopathy, unspecified type (HCC); Essential hypertension; Implantable cardioverter-defibrillator (ICD) in situ; NAFLD (nonalcoholic fatty liver disease); Obstructive sleep apnea (adult) (pediatric); Type 2 diabetes mellitus without retinopathy (HCC) Start: 08-20-2021 End: 08-20-2021 Patient encounter procedure Kimmy Torres APRN.ENVIRONMENTAL SCIENCE TECHNICIAN Work Phone: [facility] Comment on above: S/P laparoscopic sle terrence gastrectomy (Primary Dx); Class 3 severe obesity with body mass index (BMI) of 45.0 to 49.9 in adult, unspecified obesity type, unspecified whether serious comorbidity present (HCC); Essential hypertension; Umbilical hernia with obstruction, without gangrene; Type 2 diabetes mellitus without retinopathy (HCC) Start: 08-20-2021 End: 08-20-[address] Work Phone: [facility] Start: 08-20-2021 End: 08-20-2021 [facility] visit, estab pt Leela Lal RD Work Phone: [facility] Comment on above: Established Patient Start: 08-05-2021 End: 08-05-2021 Patient encounter procedure Lc López MD Work Phone: Neurology Comment on above: Obstructive sleep ap jessica (adult) (pediatric) (Primary Dx); CSA (central sleep apnea); Class 3 severe obesity with body mass index (BMI) of 45.0 to 49.9 in adult, unspecified obesity type, unspecified whether serious comorbidity present (HCC) Start: 07-30-2021 End: 07-30-2021 Patient encounter procedure Belgica Pineda APRN.ENVIRONMENTAL SCIENCE TECHNICIAN Work Phone: [facility] Comment on above: Class 3 severe obesi ty with body mass index (BMI) of 45.0 to 49.9 in adult, unspecified obesity type, unspecified whether serious comorbidity present (HCC) (Primary Dx); Dietary counseling and surveillance; BMI 45.0-49.9, adult (HCC); Central sleep apnea; Cardiomyopathy, unspecified type (HCC); Essential hypertension; Implantable cardioverter-defibrillator (ICD) in situ; Type 2 diabetes mellitus without retinopathy (HCC); Obstructive sleep apnea (adult) (pediatric); S/P gastric sleeve procedure; Umbilical hernia without obstruction or gangrene Start: 05-30-2021 Refill Valerie Caballero MD Work Phone: [facility] Comment on above: Refill Request Start: 12-06-2018 Notes/Results Only Other Other NOTE S/RESULTS Start: 12-06-2018 End: 12-06-2018 Patient encounter procedure Other Other [facility] Start: 09-09-2016 Ambulatory Jose D Moser [facility] Start: 09-06-2016 Ambulatory Marciano Weaver [facility] Start: 08-02-2016 Ambulatory MYNOR MENDOZA [facility] Procedures Date Procedure Procedure Detail Performing Clinician Start: 08-16-2024 X-ray of chest posteroanterior view Dr. Marciano Weaver MD Work Phone: Start: 07-10-2024 Urine microalbumin/creatinine ratio measurement Dr. Marciano Weaver MD Work Phone: Comment on above: Previous reported re sult: 556.8 mg/g CREEdited by: KELLY on 07/30/24:1121 AMENDED REPORT 07/30/24 1121 MALB:CREAT previously reported as: 556.8 mg/g CRE Start: 01-10-2024 Prgrmg dev eval implantable subq lead dfb system [facility] Provider Start: 10-17-2023 Antibody screen MARCIANO MCFARLANE Comment on above: Order Comment: Speci men Type: BLOOD SPECIMENOrdering Facility: [facility] Address: [address] [place] [address] Performed By: #### T SCR ####[facility] BLOOD BANKCLIA [id number] [place] [address] [place] Start: 10-02-2023 Prgrmg dev eval implantable subq lead dfb system [facility] Provider Start: 11-12-[address] Hector Weaver Work Phone: Start: 11-12-2022 X-ray of both feet Dr. Marciano Weaver Work Phone: Start: 08-30-2022 Diagnostic radiograp hy of abdomen Dr. Marciano Weaver Work Phone: Start: 04-19-2022 X-ray of lumbar spin e, two or three views Dr. Marciano Weaver Work Phone: Start: 03-17-2022 X-ray of both feet Dr. Marciano Weaver Work Phone: Start: 03-25-2019 Destructive procedure J ARELI MORALES MD Start: 03-20-2019 Colonoscopy Valerie zhu MD Work Phone: Start: 12-20-2018 Defibrillator, devic e (physical object) KATHRINE MORALES MD Comment on above: Biventricular ICD In itial Impllant 2011 [facility] with Generator Replacement 12/20/2018 (Dr Shai Zayas) Generator [facility] 3369-40Q Quadra Assura Serial [id number] RA Lead [facility] [id number] Tendril SDX Serial [id number] 04/11/[address] [facility] [id number] Durata SJ4 Serial [id number] 04/11/[address] [facility] 1458Q Quartet serial [id number] 04/11/19`12 Start: 12-06-2018 LABS (OUTSIDE) Other Ot her Start: 10-12-2017 Adult depression scr eening assessment Valerie Caballero MD Work Phone: Start: 09-05-2016 End: 09-15-2016 *BMP Kathrine Amos NP Work Phone: Start: 09-05-2016 End: 09-15-2016 CBC W Auto Differential panel - Blood Kathrine Amos LEONID Work Phone: Start: 09-05-2016 End: 09-05-2016 Prgrmg eval implantable in person multi lead dfb Pearl Plummer PA-C Work Phone: Start: 07-19-2016 End: 08-30-2016 Nuclear stress test -Lexiscan Mynor Mendoza MD Work Phone: Start: 05-31-2016 End: 07-05-2016 Follow Up Appt 3 months Karishma Lewis Start: 05-31-2016 End: 07-05-2016 Pacer Clinic Shyam Soni MD Start: 05-31-2016 End: 05-31-2016 Prgrmg eval implantable in person multi lead dfb Shyam Soni MD Start: 02-26-2016 End: 07-05-2016 Follow Up Appt 3 months Pearl briceno PA-C Work Phone: Start: 02-26-2016 End: 07-05-2016 Pacer Clinic Pearl Plummer PA-C Work Phone: Start: 02-26-2016 End: 02-26-2016 Prgrmg eval implantable in person multi lead dfb Pearl Plummer PA-C Work Phone: Start: 12-29-2015 End: 12-29-2015 MAP AND CHART MOUNTER Marilee Mascorro NP Work Phone: Start: 12-29-2015 End: 12-29-2015 Follow Up Appt 4 months Marilee Mascorro COMBAT CONTROL Work Phone: Start: 12-08-2015 End: 11-24-2016 Pulmonary Function Test - complete Roderick Brizuela Work Phone: Start: 12-03-2015 End: 12-23-2015 Follow Up Appt 6 months Roderick Brizuela Work Phone: Start: 12-03-2015 End: 11-24-2016 Pulmonary Function Test - complete Roderick Brizuela Work Phone: Start: 12-03-2015 End: 11-24-2016 Pulmonary stress test/simple Roderick Brizuela Work Phone: Start: 12-03-2015 End: 11-24-2016 Retitration with follow up (patient on CPAP currently) Roderick Brizuela Work Phone: Start: 08-20-2015 End: 12-23-2015 Ecg routine ecg w/least 12 lds w/i&r Shyam Soni MD Start: 08-20-2015 End: 12-23-2015 Follow Up Appt 3 months Karishma Lewis Start: 08-20-2015 End: 08-20-2015 Follow Up Appt 4 months Karishma Lewis Start: 08-20-2015 End: 08-20-2015 MAGALIS Soni MD Start: 08-20-2015 End: 12-23-2015 Pacer Clinic Shyam Soni MD Start: 08-20-2015 End: 08-20-2015 Prgrmg eval implantable in prsn dual lead dfb Shyam Soni MD Start: 06-09-2015 End: 11-24-2016 Follow Up Appt 6 months Roderick Pancho Gelacio Work Phone: Start: 05-21-2015 End: 12-23-2015 Follow Up Appt 3 months Karishma Lewis Start: 05-21-2015 End: 05-21-2015 MAGALIS Soni MD Start: 05-21-2015 End: 12-23-2015 Pacer Clinic Shyam Soni MD Start: 05-21-2015 End: 05-21-2015 Prgrmg eval implantable in person multi lead dfb Shyam Soni MD Start: 05-08-2015 End: 05-12-2015 *CAMERON Soni MD Start: 05-07-2015 End: 05-08-2015 Ecg routine ecg w/least 12 lds w/i&r Shyam Soni MD Start: 04-29-2015 End: 04-30-2015 Referral to tax commissioner Shyam Soni MD Start: 04-22-2015 End: 04-22-2015 Nurse, Teaching, Wound Check (no charge) Shyam Soni MD Start: 04-21-2015 End: 04-23-2015 *CAMERON Soni MD Start: 04-21-2015 End: 05-13-2015 Cardioversion Shyam Soni MD Start: 04-21-2015 End: 05-08-2015 Chest x-ray Shyam Soni MD Start: 04-21-2015 End: 04-23-2015 INR in Platelet poor plasma by Coagulation assay Shyam Soni MD Start: 04-09-2015 End: 04-09-2015 Ecg routine ecg w/least 12 lds w/i&r Pearl Plummer PA-C Work Phone: Start: 04-09-2015 End: 04-09-2015 Follow Up Appt 3 months Pearl briceno PA-C Work Phone: Start: 04-09-2015 End: 04-09-2015 MMM Pearl Plummer PA-C Work Phone: Start: 03-10-2015 End: 03-11-2015 *CBC with Differential Pearl chapin PA-C Work Phone: Start: 03-10-2015 End: 03-10-2015 Ecg routine ecg w/least 12 lds w/i&r Pearl Plummer PA-C Work Phone: Start: 03-10-2015 End: 03-23-2015 Echocardiography Pearl Plummer PA-C Work Phone: Start: 03-10-2015 End: 03-10-2015 Follow Up Appt 1 month Pearl chapin PA-C Work Phone: Start: 03-10-2015 End: 11-24-2016 Follow Up Appt 3 months Roderick Brizuela Work Phone: Start: 03-10-2015 End: 04-01-2015 Follow Up Appt Other Pearl pearson PA-C Work Phone: Start: 03-10-2015 End: 03-10-2015 MMM Pearl Plummer PA-C Work Phone: Start: 03-10-2015 End: 03-11-2015 Natriuretic peptide B [Mass/volume] in Blood Pearl Plummer PA-C Work Phone: Start: 03-10-2015 End: 11-24-2016 Pulmonary Function Test - complete Roderick Brizuela Work Phone: Start: 03-10-2015 End: 11-24-2016 Pulmonary stress test/simple Roderick Deleon Gelacio Work Phone: Start: 03-03-2015 End: 03-10-2015 Follow Up Appt 3 months Karishma Lewis Start: 03-03-2015 End: 03-10-2015 Pacer Clinic Shyam Soni MD Start: 03-03-2015 End: 03-04-2015 Prgrmg eval implantable in person multi lead dfb Shyam Soni MD Start: 11-27-2014 End: 11-27-2014 MAP AND CHART MOUNTER Pearl Plummer PA-C Work Phone: Start: 11-27-2014 End: 11-28-2014 Documentation of current medications Pearl Plummer PA-C Work Phone: Start: 11-27-2014 End: 03-10-2015 Follow Up Appt 3 months Karishma Lewis Start: 11-27-2014 End: 11-27-2014 Follow Up Appt 6 months Pearl briceno PA-C Work Phone: Start: 11-27-2014 End: 11-27-2014 Follow Up Appt Other Pearl pearson PA-C Work Phone: Start: 11-27-2014 End: 03-10-2015 Pacer Clinic Shyam Soni MD Start: 11-27-2014 End: 11-27-2014 Prgrmg eval implantable in person multi lead dfb Shyam Soni MD Start: 08-28-2014 End: 11-19-2014 Follow Up Appt 3 months Karishma Lewis Start: 08-28-2014 End: 11-19-2014 Pacer Clinic Shyam Soni MD Start: 08-28-2014 End: 08-28-2014 Prgrmg eval implantable in person multi lead dfb Shyam Soni MD Start: 05-16-2014 End: 05-17-2014 Documentation of current medications Shyam Soni MD Start: 05-16-2014 End: 05-16-2014 Follow Up Appt 3 months Karishma Lewis Start: 05-16-2014 End: 05-16-2014 Follow Up Appt 6 months Karishma Lewis Start: 05-16-2014 End: 05-16-2014 MMM Shyam Soni MD Start: 05-16-2014 End: 05-16-2014 Pacer Clinic Shyam Soni MD Start: 05-16-2014 End: 05-16-2014 Prgrmg eval implantable in person multi lead dfb Shyam Soni MD Start: 01-07-2014 End: 05-16-2014 Follow Up Appt 3 months Karishma Lewis Start: 01-07-2014 End: 05-16-2014 Pacer Clinic Shyam Soni MD Start: 01-07-2014 End: 01-07-2014 Prgrmg eval implantable in person multi lead dfb Shyam Soni MD Start: 09-26-2013 End: 05-16-2014 Follow Up Appt 3 months Karishma Lewis Start: 09-26-2013 End: 05-16-2014 Pacer Clinic Shyam Soni MD Start: 09-26-2013 End: 09-26-2013 Prgrmg eval implantable in person multi lead dfb Shyam Soni MD Start: 06-20-2013 End: 05-16-2014 Follow Up Appt 3 months Karishma Lewis Start: 06-20-2013 End: 05-16-2014 Pacer Clinic Shyam Soni MD Start: 06-20-2013 End: 06-21-2013 Prgrmg eval implantable in person multi lead dfb Shyam Soni MD Start: 03-21-2013 End: 05-16-2014 Follow Up Appt 3 months Al Granados MD Start: 03-21-2013 End: 05-16-2014 Pacer Clinic Al Granados MD Start: 03-21-2013 End: 03-21-2013 Prgrmg eval implantable in person multi lead dfb Al Granados MD Start: 12-18-2012 End: 12-18-2012 Follow Up Appt 3 months Karishma Lewis Start: 12-18-2012 End: 12-18-2012 Follow Up Appt 6 months Karishma Lewis Start: 12-18-2012 End: 12-18-2012 [facility] Shyam Soni MD Start: 12-18-2012 End: 12-18-2012 Pacer Clinic Shyam Soni MD Start: 12-18-2012 End: 12-18-2012 Prgrmg eval implantable in person multi lead dfb Shyam Soni MD Start: 09-13-2012 End: 12-18-2012 Follow Up Appt 3 months Karishma Lewis Start: 09-13-2012 End: 12-18-2012 Pacer Clinic Shyam Soni MD Start: 09-13-2012 End: 09-13-2012 Prgrmg eval implantable in person multi lead dfb Shyam Soni MD Start: 06-07-2012 End: 12-18-2012 Follow Up Appt 3 months Karishma Lewis Start: 06-07-2012 End: 12-18-2012 Pacer Clinic Shyam Soni MD Start: 06-07-2012 End: 06-07-2012 Prgrmg eval implantable in person multi lead dfb Shyam Soni MD Start: 05-09-2012 End: 05-16-2014 *BMP Ton Lamb MD Start: 05-09-2012 End: 05-16-2014 *Hepatic Function Panel Ton Lamb MD Start: 05-09-2012 End: 05-16-2014 Lipid 1996 panel - Serum or Plasma Ton Lamb MD Start: 05-09-2012 End: 05-16-2014 Magnesium [Mass/volume] in Serum or Plasma Ton Lamb MD Start: 04-10-2012 End: 04-10-2012 Follow Up Appt 6 months Ton Lamb MD Start: 11-17-2011 End: 11-17-2011 Follow Up Appt 6 months Ton Lamb MD Start: 08-23-2011 End: 11-16-2011 *BMP Ton Lamb MD Start: 08-23-2011 End: 11-16-2011 *Hepatic Function Panel Ton Lamb MD Start: 08-23-2011 End: 09-30-2011 Echocardiography Ton Lamb MD Start: 08-23-2011 End: 08-23-2011 Follow Up Appt 3 months Ton Lamb MD Start: 08-23-2011 End: 11-16-2011 Lipid 1996 panel - Serum or Plasma Ton Lamb MD Start: 08-23-2011 End: 11-16-2011 Magnesium [Mass/volume] in Serum or Plasma Ton Lamb MD Start: 08-10-2011 End: 11-16-2011 *Hepatic Function Panel Ton Lamb MD Start: 08-10-2011 End: 11-16-2011 Lipid 1996 panel - Serum or Plasma Ton Lamb MD Start: 05-19-2011 End: 05-19-2011 Ecg routine ecg w/least 12 lds w/i&r Ton Lamb MD Start: 05-19-2011 End: 05-19-2011 Follow Up Appt 3 months Ton Lamb MD Start: 04-07-2011 End: 04-07-2011 *Hepatic Function Panel Ton Lamb MD Start: 04-07-2011 End: 04-07-2011 Lipid 1996 panel - Serum or Plasma Ton Lamb MD Start: 03-03-2011 End: 04-07-2011 *BMP Ton Lamb MD Start: 03-03-2011 End: 04-07-2011 *CBC with Differential Ton Lamb MD Start: 03-03-2011 End: 04-07-2011 aPTT in Platelet poor plasma by Coagulation assay Ton Lamb MD Start: 03-03-2011 End: 03-03-2011 Follow Up Appt 6 weeks Ton Lamb MD Start: 03-03-2011 End: 04-07-2011 INR in Platelet poor plasma by Coagulation assay Ton Lamb MD Start: 03-03-2011 End: 04-07-2011 Magnesium [Mass/volume] in Serum or Plasma Ton Lamb MD Start: 01-14-2011 End: 01-24-2011 *CBC with Differential Ton Lamb MD Start: 01-14-2011 End: 01-24-2011 *Hepatic Function Panel Ton Lamb MD Start: 01-14-2011 End: 01-24-2011 24 hour holter monitor Ton Lamb MD Start: 01-14-2011 End: 01-24-2011 Echocardiography Ton Lamb MD Start: 01-14-2011 End: 01-14-2011 Follow Up Appt 6 weeks Ton Lamb MD Start: 01-14-2011 End: 01-24-2011 Lipid 1996 panel - Serum or Plasma Ton Lamb MD Start: 01-14-2011 End: 01-24-2011 Magnesium [Mass/volume] in Serum or Plasma Ton Lamb MD Start: 01-14-2011 End: 01-24-2011 Thyrotropin [Units/volume] in Serum or Plasma Ton Lamb MD Start: 01-14-2011 End: 01-24-2011 Thyroxine (T4) [Mass/volume] in Serum or Plasma Ton Lamb MD Bariatric operative procedure KATHRINE MORALES MD H/O: surgery S/P exploratory laparotomy Acute 359 Work Phone: Implantation of card iac pacemaker KATHRINE MORALES MD Right elbow region structure (body structure) KATHRINE MORALES MD Tonsillectomy KATHRINE MORALES MD Plan of Treatment Date Care Activity Detail Author Start: 08-03-2033 Urine microalbumin profile DTa P,Tdap,Td Vaccine (2 - Td or Tdap) [facility] Start: 03-10-2025 End: 03-10-2025 Patient encounter procedure 03/10/2025 10:20 AM EST Office Visit Neurology [address] [place] [address] Lc López Jr., MD [address] [place] [address] follow up Neurology Comment on above: follow up Start: 11-05-2024 BP Controlled (<130/80) BP Controlle d (<130/80) [facility] Start: 10-07-2024 Influenza vaccination Influenza Vacc ine (#1) [facility] Start: 09-11-2024 End: 09-11-2024 Patient encounter procedure 09/11/2024 11:00 AM EDT Office Visit Urology [address] [place] [address] Dennis Bansal MD [facility] [place] [address] Ureteral dilatation [N28.82] Urology Comment on above: Ureteral dilatation [N28.82] Start: 08-26-2024 End: 08-26-2024 Patient encounter procedure General Surgery Comment on above: Lesion of spleen [D7 3.89] Lesion of spleen [D7 3.89] Dr Frausto okayed to see RLM Start: 08-22-2024 Dual energy X-ray absorptiometry Dexa Bone Density Study [facility] Start: 08-12-2024 End: 08-12-2024 Patient encounter procedure Cat Scan Comment on above: CT ORAL PREP CT ABD/PEL W IVCON Start: 08-08-2024 End: 11-07-2024 Creatinine and Glomerular filtration rate.predicted panel - Serum, Plasma or Blood CREATININE BLD Lab Routine Screening for nephropathy Expected: 08/08/2024, Expires: 11/07/2024 [facility] Work Phone: Comment on above: Expected: 08/08/2024 , Expires: 11/07/2024 Start: 03-05-2024 End: 06-04-2024 CREATININE BLD CREATININE BLD Lab Routine Splenomegaly Splenic lesion Splenomegaly, not elsewhere classified Expected: 03/05/2024, Expires: 06/04/2024 [facility] Comment on above: Expected: 03/05/2024 , Expires: 06/04/2024 Start: 02-07-2024 Advance Directive Discussion Advance Directive Discussion [facility] Start: 02-07-2024 Medicare Advantage A nnual Wellness Visit Medicare Advantage Annual Wellness Visit [facility] Start: 01-10-2024 End: 01-10-2024 Cardioversion elective arrhythmia external CARDIOVERSION EXTERNAL ELECTIVE Persistent atrial fibrillation (HCC) 01/10/2024 7:05 PM EST EP LAB Start: 01-10-2024 End: 01-10-2024 Admission to same day surgery center 01/10/2024 11:05 AM EST - 01/10/2024 12:05 PM EST Surgery HOSP EP Lab [address] [place] [address] Wali Bravo MD [address] [place] [address] CARDIOVERSION EXTERNAL ELECTIVE HOSP EP Lab Comment on above: 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 Cardiology Comment on above: [facility] Start: 01-10-2024 End: 01-10-2024 Patient encounter procedure Cardiology Comment on above: [facility] interview Start: 2023 End: 12-11-2024 ECG COMPLETE ECG COMPLETE ECG Routine Atrial tachycardia (HCC) Expected: 2023, Expires: 12/11/2024 [facility] Work Phone: Comment on above: Expected: 2023 , Expires: 12/11/2024 Start: 10-08-2023 Covid-19 Vaccine ( season) Covid-19 Vaccine () [facility] Start: 10-08-2023 Influenza vaccination Influenza Vacc ine (#1) [facility] Start: 10-02-2023 End: 10-02-2023 Patient encounter procedure 10/02/2023 3:45 PM EDT Appointment Cardiology [address] [place] [address] Dx: Hx of Ablation (06/30/23); A-fib; Pacemaker/ICD Implanted; Enlarged heart Cardiology Comment on above: Dx: Hx of Ablation ( 06/30/23); A-fib; Pacemaker/ICD Implanted; Enlarged heart Start: 10-02-2023 End: 10-02-2023 ambulatory 10/02/2023 2:00 PM EDT Results Only Cardiology [address] [place] [address] Dx: Hx of Ablation (06/30/23); A-fib; Pacemaker/ICD Implanted; Enlarged heart Cardiology Comment on above: Dx: Hx of Ablation ( 06/30/23); A-fib; Pacemaker/ICD Implanted; Enlarged heart Start: 10-02-2023 End: 10-02-2023 Patient encounter procedure Cardiology Comment on above: Dx: Hx of Ablation ( 06/30/23); A-fib; Pacemaker/ICD Implanted; Enlarged heart Start: 02-06-2023 Advance Directive Discussion Advance Directive Discussion [facility] Start: 02-06-2023 Behavioral Health Screening Behavioral Health Screening [facility] Start: 11-12-2022 [facility] Start: 10-07-2022 Covid-19 Vaccine () Covid-19 Vaccine () [facility] Start: 10-07-2022 Influenza vaccination C [facility] Start: 04-25-2022 Hemoglobin A1c measurement HbA1C [facility] Start: 04-25-2022 Hemoglobin A1c/Hemoglobin.total in Blood HBA1C [facility] Start: 02-19-2022 BP CONTROLLED (<130/80) BP CONTROLLE D (<130/80) [facility] Start: 02-06-2022 ADVANCE DIRECTIVE DISCUSSION ADVANCE DIRECTIVE DISCUSSION [facility] Start: 02-06-2022 DEPRESSION ASSESSMENT DEPRESSION ASS ESSMENT [facility] Start: 10-07-2021 Influenza vaccination INFLUENZA (#1) [facility] Start: 08-20-2021 End: 10-20-2021 VITAMIN B1 (THIAMINE), WHOLE BLOOD [facility] Work Phone: Comment on above: Expected: 08/20/2021 , Expires: 10/20/2021 Start: 05-19-2021 COVID-19 VACCINE (4 - Booster for Moderna series) COVID-19 VACCINE (4 - Booster for Moderna series) [facility] Start: 03-15-2021 COVID-19 VACCINE (4 - Booster for Moderna series) COVID-19 VACCINE (4 - Booster for Moderna series) [facility] Start: 03-15-2021 COVID-19 VACCINE (4 - Moderna series) COVID-19 VACCINE (4 - Moderna series) [facility] Start: 02-06-2021 ADVANCE DIRECTIVE DISCUSSION ADVANCE DIRECTIVE DISCUSSION [facility] Start: 02-06-2021 DEPRESSION ASSESSMENT DEPRESSION ASS ESSMENT [facility] Start: 03-20-2020 Colonoscopy COLONOSCOPY [facility] Start: 03-20-2020 COLORECTAL CANCER SCREENING COLORECTAL CANCER SCREENING [facility] Start: 03-20-2020 Screening for malign ant neoplasm of colon [facility] Start: 09-27-2019 Hemoglobin A1c/Hemoglobin.total in Blood HBA1C [facility] Start: 03-05-2019 Pneumococcal Vaccine : 65+ (3 - PPSV23 or PCV20) Pneumococcal Vaccine: 65+ (3 - PPSV23 or PCV20) [facility] Start: 03-05-2019 Pneumococcal Vaccine : 65+ (3 of 3 - PPSV23 or PCV20) Pneumococcal Vaccine: 65+ (3 of 3 - PPSV23 or PCV20) [facility] Start: 03-05-2019 PNEUMOCOCCAL: 65+ (3 - PPSV23 if available, else PCV20) PNEUMOCOCCAL: 65+ (3 - PPSV23 if available, else PCV20) [facility] Start: 03-05-2019 PNEUMOCOCCAL: 65+ (3 - PPSV23 or PCV20) PNEUMOCOCCAL: 65+ (3 - PPSV23 or PCV20) [facility] Start: 03-05-2019 PNEUMOVAX AGE 65 AND OVER WITH 5YR LOOKBACK (#1) PNEUMOVAX AGE 65 AND OVER WITH 5YR LOOKBACK (#1) [facility] Start: 10-12-2018 Adult depression scr eening assessment DEPRESSION SCREENING [facility] Start: 10-07-2018 Influenza vaccination INFLUENZA VACC INE (#1) [facility] Start: 09-07-2018 Glaucoma screening Dilated Retinal E xam [facility] Start: 09-07-2018 Hepatitis C antibody , confirmatory test DILATED RETINAL EXAM [facility] Start: 07-27-2017 Potassium [Moles/Vol] POTASSIUM [facility] Start: 05-29-2017 End: 05-29-2017 Appointment Appointment [facility] [employer] Phone: Start: 01-26-2017 End: 01-26-2017 Appointment Appointment [facility] [employer] Phone: Start: 12-09-2016 End: 12-09-2016 Appointment Appointment [facility] [facility] [employer] Phone: Start: 11-29-2016 End: 11-29-2016 Follow Up Appt 6 months Follow Up Appt 6 months [facility] [employer] Phone: Start: 09-05-2016 End: 09-15-2016 *BMP *BMP [facility] [employer] Phone: Start: 09-05-2016 End: 09-15-2016 CBC W Auto Differential panel - Blood *CBC without Diff [facility] [employer] Phone: Start: 09-05-2016 End: 09-05-2016 Ecg routine ecg w/least 12 lds w/i&r EKG (In office) [facility] [employer] Phone: Start: 09-05-2016 End: 09-05-2016 Follow Up Appt 3 months Follow Up Appt 3 months [facility] [employer] Phone: Start: 09-05-2016 End: 09-05-2016 Pacer Clinic [facility] [employer] Phone: Start: 08-30-2016 End: 08-30-2016 *CMP Complete Metabolic Panel *CMP Complete Metabolic Panel [facility] [employer] Phone: Start: 08-30-2016 End: 08-30-2016 *Microalbumin, Creatine Ratio, rand urine *Microalbumin, Creatine Ratio, rand urine [facility] [employer] Phone: Start: 08-30-2016 End: 08-30-2016 Cardiac Referral Cardiac Referral [facility] [employer] Phone: Start: 08-30-2016 End: 08-30-2016 Hemoglobin A1c/Hemoglobin.total mass fraction (Bld) *HgA1C [facility] [employer] Phone: Start: 08-30-2016 End: 08-30-2016 Lipid panel [AGGREGATE] *Lipid Profile [facility] [employer] Phone: Start: 07-19-2016 End: 07-19-2016 AMINA HUYNH [facility] [employer] Phone: Start: 07-19-2016 End: 07-19-2016 Follow Up Appt 6 months Follow Up Appt 6 months [facility] [employer] Phone: Start: 07-19-2016 End: 07-19-2016 Nuclear stress test -Lexiscan Nuclear stress test -Lexiscan [facility] [employer] Phone: Start: 06-02-2016 End: 06-02-2016 Follow Up Appt 6 months Follow Up Appt 6 months [facility] [employer] Phone: Start: 05-31-2016 End: 07-05-2016 Follow Up Appt 3 months Follow Up Appt 3 months [facility] [employer] Phone: Start: 05-31-2016 End: 07-05-2016 Pacer Clinic Pacer Clinic [facility] [employer] Phone: Start: 02-26-2016 End: 07-05-2016 Follow Up Appt 3 months Follow Up Appt 3 months [facility] [employer] Phone: Start: 02-26-2016 End: 07-05-2016 Pacer Clinic Pacer Clinic [facility] [employer] Phone: Start: 01-27-2016 End: 02-06-2016 *CMP Complete Metabolic Panel *CMP Complete Metabolic Panel [facility] [employer] Phone: Start: 01-27-2016 End: 02-06-2016 *Microalbumin, Creatine Ratio, rand urine *Microalbumin, Creatine Ratio, rand urine [facility] [employer] Phone: Start: 01-27-2016 End: 02-06-2016 Hemoglobin A1c/Hemoglobin.total mass fraction (Bld) *HgA1C [facility] [employer] Phone: Start: 01-27-2016 End: 02-06-2016 Lipid panel [AGGREGATE] *Lipid Profile [facility] [employer] Phone: Start: 12-29-2015 End: 12-29-2015 MAP AND CHART MOUNTER MAP AND CHART MOUNTER [facility] [employer] Phone: Start: 12-29-2015 End: 12-29-2015 Follow Up Appt 4 months Follow Up Appt 4 months [facility] [employer] Phone: Start: 12-13-2015 Pneumococcal vaccination PNEUM OCOCCAL VACCINE SERIES (1 of 2 - PCV13) [facility] Start: 12-08-2015 End: 06-08-2016 Pulmonary Function Test - complete Pulmonary Function Test - complete [facility] [employer] Phone: Start: 12-03-2015 End: 12-23-2015 Follow Up Appt 6 months Follow Up Appt 6 months [facility] [employer] Phone: Start: 12-03-2015 End: 11-24-2016 Pulmonary Function Test - complete Pulmonary Function Test - complete [facility] [employer] Phone: Start: 12-03-2015 End: 11-24-2016 Pulmonary stress test/simple Pulmonary stress testing; simple (eg, 6-minute walk) [facility] [employer] Phone: Start: 12-03-2015 End: 11-24-2016 Retitration with follow up (patient on CPAP currently) Retitration with follow up (patient on CPAP currently) [facility] [place] Work Phone: Start: 10-03-2015 3 comp foot exam completed DIABETIC FOOT EXAM [facility] Start: 10-03-2015 Diabetic foot examination Diabetic F oot Exam [facility] Start: 08-20-2015 End: 12-23-2015 Ecg routine ecg w/least 12 lds w/i&r EKG (In office) [facility] Work Phone: Start: 08-20-2015 End: 12-23-2015 Follow Up Appt 3 months Follow Up Appt 3 months [facility] [place] Work Phone: Start: 08-20-2015 End: 08-20-2015 Follow Up Appt 4 months Follow Up Appt 4 months [facility] [employer] Phone: Start: 08-20-2015 End: 08-20-2015 MMM MMM [facility] [place] Work Phone: Start: 08-20-2015 End: 12-23-2015 Pacer Clinic Pacer Clinic [facility] [place] Work Phone: Start: 06-09-2015 End: 11-24-2016 Follow Up Appt 6 months Follow Up Appt 6 months [facility] [place] Work Phone: Start: 05-21-2015 End: 12-23-2015 Follow Up Appt 3 months Follow Up Appt 3 months [facility] [place] Work Phone: Start: 05-21-2015 End: 05-21-2015 MMM MMM [facility] [place] Work Phone: Start: 05-21-2015 End: 12-23-2015 Pacer Clinic Pacer Clinic [facility] [place] Work Phone: Start: 05-17-2015 Hepatitis B surface antibody level LDL CHOLESTEROL [facility] Start: 05-08-2015 End: 05-12-2015 *BMP *BMP [facility] [place] Work Phone: Start: 05-07-2015 End: 05-08-2015 Ecg routine ecg w/least 12 lds w/i&r EKG (In office) [facility] [employer] Phone: Start: 04-29-2015 End: 04-29-2015 Cardiac Referral Cardiac Referral Shai Zayas, [facility] [place], [address] [place] [address], [id number] [facility] Work Phone: Start: 04-21-2015 End: 04-23-2015 *BMP *BMP [facility] Work Phone: Start: 04-21-2015 End: 04-22-2015 Cardioversion Cardioversion [facility] [employer] Phone: Start: 04-21-2015 End: 05-08-2015 Chest x-ray X-Ray, Chest, PA & Lateral [facility] [employer] Phone: Start: 04-21-2015 End: 04-23-2015 INR Coag RelTime (PPP) *PT/INR [facility] [employer] Phone: Start: 04-09-2015 End: 04-09-2015 Ecg routine ecg w/least 12 lds w/i&r EKG (In office) [facility] [employer] Phone: Start: 04-09-2015 End: 04-09-2015 Follow Up Appt 3 months Follow Up Appt 3 months [facility] [employer] Phone: Start: 04-09-2015 End: 04-09-2015 MMM MMM [facility] [employer] Phone: Start: 03-10-2015 End: 03-11-2015 *CBC with Differential *CBC with Differential [facility] [employer] Phone: Start: 03-10-2015 End: 03-11-2015 BNP *Brain Natriuretic Peptide BNP [facility] [employer] Phone: Start: 03-10-2015 End: 03-10-2015 Ecg routine ecg w/least 12 lds w/i&r EKG (In office) [facility] [employer] Phone: Start: 03-10-2015 End: 03-10-2015 Echocardiography Echocardiogram (complete) [facility] [employer] Phone: Start: 03-10-2015 End: 03-10-2015 Follow Up Appt 1 month Follow Up Appt 1 month [facility] [employer] Phone: Start: 03-10-2015 End: 11-24-2016 Follow Up Appt 3 months Follow Up Appt 3 months [facility] [employer] Phone: Start: 03-10-2015 End: 04-01-2015 Follow Up Appt Other Follow Up Appt Other [facility] [employer] Phone: Start: 03-10-2015 End: 03-10-2015 MMM MMM [facility] [employer] Phone: Start: 03-10-2015 End: 11-24-2016 Pulmonary Function Test - complete Pulmonary Function Test - complete [facility] [employer] Phone: Start: 03-10-2015 End: 11-24-2016 Pulmonary stress test/simple Pulmonary stress testing; simple (eg, 6-minute walk) [facility] [employer] Phone: Start: 03-03-2015 End: 03-10-2015 Follow Up Appt 3 months Follow Up Appt 3 months [facility] [employer] Phone: Start: 03-03-2015 End: 03-10-2015 Pacer Clinic Pacer Clinic [facility] [employer] Phone: Start: 11-27-2014 End: 11-27-2014 MAP AND CHART MOUNTER MAP AND CHART MOUNTER [facility] [employer] Phone: Start: 11-27-2014 End: 03-10-2015 Follow Up Appt 3 months Follow Up Appt 3 months [facility] [employer] Phone: Start: 11-27-2014 End: 11-27-2014 Follow Up Appt 6 months Follow Up Appt 6 months [facility] Phone: Start: 11-27-2014 End: 11-27-2014 Follow Up Appt Other Follow Up Appt Other [facility] Work Phone: Start: 11-27-2014 End: 03-10-2015 Pacer Clinic Pac[facility] Clinic [facility] Phone: Start: 08-28-2014 End: 11-19-2014 Follow Up Appt 3 months Follow Up Appt 3 months [facility] [place] Work Phone: Start: 08-28-2014 End: 11-19-2014 Pacer Clinic Pacer Clinic [facility] [place] Work Phone: Start: 05-16-2014 End: 05-16-2014 Follow Up Appt 3 months Follow Up Appt 3 months [facility] Work Phone: Start: 05-16-2014 End: 05-16-2014 Follow Up Appt 6 months Follow Up Appt 6 months [facility] [place] Work Phone: Start: 05-16-2014 End: 05-16-2014 MMM MMM [facility] [place] Work Phone: Start: 05-16-2014 End: 05-16-2014 Pacer Clinic Pac[facility] Work Phone: Start: 01-07-2014 End: 05-16-2014 Follow Up Appt 3 months Follow Up Appt 3 months [facility] Work Phone: Start: 01-07-2014 End: 05-16-2014 Pacer Clinic [facility] [place] Work Phone: Start: 09-26-2013 End: 05-16-2014 Follow Up Appt 3 months Follow Up Appt 3 months [facility] [place] Work Phone: Start: 09-26-2013 End: 05-16-2014 Pacer Clinic [facility] Work Phone: Start: 06-20-2013 End: 05-16-2014 Follow Up Appt 3 months Follow Up Appt 3 months [facility] [place] Work Phone: Start: 06-20-2013 End: 05-16-2014 [facility] Work Phone: Start: 06-19-2013 Hepatitis B screening URINE ALBUMIN:CREATININE RATIO [facility] Start: 06-15-2013 Hepatitis B surface antibody level LDL CHOLESTEROL [facility] Start: 03-21-2013 End: 05-16-2014 Follow Up Appt 3 months Follow Up Appt 3 months [facility] Work Phone: Start: 03-21-2013 End: 05-16-2014 [facility] Work Phone: Start: 12-18-2012 End: 12-18-2012 Follow Up Appt 3 months Follow Up Appt 3 months [facility] [place] Work Phone: Start: 12-18-2012 End: 12-18-2012 Follow Up Appt 6 months Follow Up Appt 6 months [facility] Work Phone: Start: 12-18-2012 End: 12-18-2012 MMM MMM [facility] [place] Work Phone: Start: 12-18-2012 End: 12-18-2012 [facility] Work Phone: Start: 09-13-2012 End: 12-18-2012 Follow Up Appt 3 months Follow Up Appt 3 months [facility] Work Phone: Start: 09-13-2012 End: 12-18-2012 [facility] [place] Work Phone: Start: 06-07-2012 End: 12-18-2012 Follow Up Appt 3 months Follow Up Appt 3 months [facility] [place] Work Phone: Start: 06-07-2012 End: 12-18-2012 Pacer Clinic Pac[facility] Clinic [facility] [place] Work Phone: Start: 05-09-2012 End: 11-17-2011 *BMP *BMP [facility] Work Phone: Start: 05-09-2012 End: 05-16-2014 *Hepatic Function Panel *Hepatic Function Panel [facility] Work Phone: Start: 05-09-2012 End: 05-16-2014 Lipid panel [AGGREGATE] *Lipid Profile [facility] [place] [facility] Phone: Start: 05-09-2012 End: 05-16-2014 Magnesium *Magnesium [facility] Work Phone: Start: 04-10-2012 End: 04-10-2012 Follow Up Appt 6 months Follow Up Appt 6 months [facility] [place] Work Phone: Start: 11-17-2011 End: 11-17-2011 Follow Up Appt 6 months Follow Up Appt 6 months [facility] [place] Work Phone: Start: 08-23-2011 End: 11-16-2011 *BMP *BMP [facility] Work Phone: Start: 08-23-2011 End: 11-16-2011 *Hepatic Function Panel *Hepatic Function Panel [facility] Work Phone: Start: 08-23-2011 End: 08-23-2011 Echocardiography Echocardiogram (complete) [facility] Work Phone: Start: 08-23-2011 End: 08-23-2011 Follow Up Appt 3 months Follow Up Appt 3 months [facility] [place] Work Phone: Start: 08-23-2011 End: 11-16-2011 Lipid panel [AGGREGATE] *Lipid Profile [facility] [place] [facility] Phone: Start: 08-23-2011 End: 11-16-2011 Magnesium *Magnesium [facility] Work Phone: Start: 08-10-2011 End: 11-16-2011 *Hepatic Function Panel *Hepatic Function Panel [facility] [employer] Phone: Start: 08-10-2011 End: 11-16-2011 Lipid panel [AGGREGATE] *Lipid Profile [facility] [place] [facility] Phone: Start: 05-19-2011 End: 05-19-2011 Ecg routine ecg w/least 12 lds w/i&r EKG (In office) [facility] [employer] Phone: Start: 05-19-2011 End: 05-19-2011 Follow Up Appt 3 months Follow Up Appt 3 months [facility] Work Phone: Start: 05-11-2011 End: 04-07-2011 *Hepatic Function Panel *Hepatic Function Panel [facility] Phone: Start: 05-11-2011 End: 04-07-2011 Lipid panel [AGGREGATE] *Lipid Profile [facility] [employer] Phone: Start: 03-03-2011 End: 04-07-2011 *BMP *BMP [facility] Work Phone: Start: 03-03-2011 End: 04-07-2011 *CBC with Differential *CBC with Differential [facility] [employer] Phone: Start: 03-03-2011 End: 04-07-2011 aPTT *PTT-Partial Thromboplastin Time [facility] Work Phone: Start: 03-03-2011 End: 03-03-2011 Follow Up Appt 6 weeks Follow Up Appt 6 weeks [facility] [employer] Phone: Start: 03-03-2011 End: 04-07-2011 INR Coag RelTime (PPP) *PT/INR [facility] [employer] Phone: Start: 03-03-2011 End: 04-07-2011 Magnesium *Magnesium [facility] [employer] Phone: Start: 01-14-2011 End: 01-24-2011 *BMP *BMP [facility] [employer] Phone: Start: 01-14-2011 End: 01-24-2011 *CBC with Differential *CBC with Differential [facility] [employer] Phone: Start: 01-14-2011 End: 01-24-2011 *Hepatic Function Panel *Hepatic Function Panel [facility] [employer] Phone: Start: 01-14-2011 End: 01-14-2011 24 hour holter monitor 24 hour holter monitor [facility] [employer] Phone: Start: 01-14-2011 End: 01-14-2011 Echocardiography Echocardiogram (complete) [facility] [employer] Phone: Start: 01-14-2011 End: 01-14-2011 Follow Up Appt 6 weeks Follow Up Appt 6 weeks [facility] [employer] Phone: Start: 01-14-2011 End: 01-24-2011 Lipid panel [AGGREGATE] *Lipid Profile [facility] [employer] Phone: Start: 01-14-2011 End: 01-24-2011 Magnesium *Magnesium [facility] [employer] Phone: Start: 01-14-2011 End: 01-24-2011 Thyroid stimulating hormone (TSH) *TSH [facility] [employer] Phone: Start: 01-14-2011 End: 01-24-2011 Thyroxine (T4) *T4 (Total) [facility] [employer] Phone: Start: 2010 Hepatitis B Vaccine (1 of 3 - Risk 3-dose series) Hepatitis B Vaccine (1 of 3 - Risk 3-dose series) [facility] Start: 2010 RSV Vaccine (1 - 1-d ose 60+ series) RSV Vaccine (1 - 1-dose 60+ series) [facility] Start: 2000 Colonoscopy COLON CANCER S CREENING DISCUSSION [facility] Start: 2000 Prostate specific an tigen measurement PROSTATE CANCER SCREENING DISCUSSION [facility] Start: 2000 SHINGRIX VACCINE (1 of 2) OSPINA GRIX VACCINE (1 of 2) [facility] Start: 2000 Zoster vaccine hzv l roger for subcutaneous use ZOSTER (SHINGLES) VACCINE (1 of 2) [facility] Start: 12-13-1995 COLOGUARD (FIT-DNA) COLOGUARD (FIT-D NA) [facility] Start: 12-13-1995 Colonoscopy COLONOSCOPY [facility] Start: 12-13-1995 COLORECTAL CANCER SCREENING COLORECTAL CANCER SCREENING [facility] Start: 12-13-[address] COLONOGRAPHY [facility] Start: 12-13-1995 FECAL OCCULT BLOOD FECAL OCCULT BLOO D [facility] Start: 12-13-1995 Screening for malign ant neoplasm of colon [facility] Start: 12-13-1995 SIGMOIDOSCOPY SIGMOIDOSCOPY [facility] Start: 1990 Fasting lipid profile LIPID SCREENIN G [facility] Start: 1969 Third diphtheria, te tanus and acellular pertussis (DTaP) vaccination TDAP (ADULT) [facility] Start: 1969 Urine microalbumin profile [facility] Start: 1968 ANNUAL PCP TEAM RELAY SHOP SUPERVISOR STACEY DISEASE VISIT ANNUAL PCP TEAM CHRONIC DISEASE VISIT [facility] Start: 1968 Anxiety Screening Anxiety Screening [facility] Start: 1968 BP CONTROLLED (<130/80) BP CONTROLLE D (<130/80) [facility] Start: 1968 Depression Screening Depression Scre ening [facility] Start: 1968 HEPATITIS C SCREENING HEPATITIS C [facility] Start: 1968 Hepatitis C screening Hepatitis C [facility] Start: 1968 Tetanus vaccination TETANUS [facility] Start: 1950 Hepatitis C antibody , confirmatory test HEPATITIS C VIRUS SCREENING [facility] CARDIAC IMPLANTABLE DEVICE CHECK CARDIAC IMPLANTABLE DEVICE CHECK PACEART Routine Pacemaker reprogramming/check 10/02/2023 2:22 PM EDT [facility] CARDIAC IMPLANTABLE DEVICE CHECK CARDIAC IMPLANTABLE DEVICE CHECK PACEART Routine Pacemaker reprogramming/check 01/10/2024 1:42 PM EST [facility] Chiropractic manipulation [facility] End: 04-04-2025 CT Abdomen and Pelvis W contrast IV CT ABD/PEL W IVCON Radiology Routine Splenomegaly, not elsewhere classified 1 Occurrences starting 03/05/2024 until 04/04/2025 [facility] Work Phone: Comment on above: 1 Occurrences starti ng 03/05/2024 until 04/04/2025 CT Abdomen and Pelvi s W contrast IV CT ABD/PEL W IVCON Radiology Routine Splenomegaly, not elsewhere classified 08/12/2024 11:49 AM EDT [facility] Work Phone: End: 08-14-2024 ECG COMPLETE ECG COMPLETE ECG Routine Atrial fibrillation, unspecified type (HCC) Pacemaker 1 Occurrences starting 08/15/2023 until 08/14/2024 [facility] Work Phone: Comment on above: 1 Occurrences starti ng 08/15/2023 until 08/14/2024 Patient Education [facility] Work Phone: [facility] Work Phone: [facility] Immunizations Immunization Date Immunization Notes Care Provider Don avera [facility] 11-08-2023 influenza virus vacc ine, unspecified formulation Lucie Reynolds GATEHOUSE ATTENDANT.ENVIRONMENTAL SCIENCE TECHNICIAN Work Phone: [facility] 12-09-2022 influenza virus vacc ine, unspecified formulation Wali Bravo MD Work Phone: [facility] 10-27-2021 influenza virus vacc ine, unspecified formulation Belgica Pineda GATEHOUSE ATTENDANT.ENVIRONMENTAL SCIENCE TECHNICIAN Work Phone: [facility] 12-18-2020 influenza (aIIV4) vaccine, age 65+ yr, quadrivalent, PF (FLUAD QUADRIVALENT) Valerie Caballero MD Work Phone: [facility] 11-18-2019 influenza, high dose seasonal, preservative-free Valerie Caballero MD Work Phone: [facility] 12-06-2018 influenza, high dose seasonal, preservative-free Valerie Caballero MD Work Phone: [facility] 11-29-2017 influenza, high dose seasonal, preservative-free Valerie Caballero MD Work Phone: [facility] 10-29-2016 influenza, high dose seasonal, preservative-free Valerie Caballero MD Work Phone: [facility] 10-29-2016 pneumococcal conjuga te vaccine, 13 valent Valerie Caballero MD Work Phone: [facility] 03-05-2014 pneumococcal polysaccharide vaccine, 23 valent Valerie Caballero MD Work Phone: [facility] 10-30-2013 influenza, seasonal, injectable Valerie Caballero MD Work Phone: [facility] Payers Date Payer Category Payer Self-pay [id number] 2023 Medicare (Managed Care) [employer] [id number] 2022 Private Health Insurance [id number] 2022 Medicaid [id number] 2019 Medicaid [id number] 2019 Unknown [id number] 2018 Medicare [id number] 2018 Medicare [id number] 2016 Medicare MEDICARE UHC HMO MEDICARE UHC HMO xxxxxxxxx 2016-Present xxxxxxxxx [id number] 2016 Unknown [id number] 1950 Unknown [id number] 1950 Unknown [id number] 627 1950 Unknown [id number] 627 1950 Unknown [id number] 627 Medicare [id number] Private Health Insurance Unknown [id number] Unknown [id number] Unknown [id number] Unknown [id number] 462 Unknown [id number] 462 Unknown [id number] Unknown [id number] Social History Date Type Detail Facility Start: 10-18-2016 End: 07-16-2024 Tobacco smoking status NHIS Never smoker [facility] Work Phone: Start: 10-18-2016 End: 10-02-2023 Alcohol intake No [facility] [facility] Sex Assigned At Not on file [facility] Start: 06-14-2012 End: 10-26-2021 Tobacco use and exposure Smokeless tobacco non-user [facility] Work Phone: Start: 02-19-2021 End: 01-10-2024 Alcohol intake Current non-drinker of alcohol (finding) [facility] Start: 1950 Sex Assigned At Male [facility] Start: 07-20-2021 End: 10-26-2021 Exposure to SARS-CoV-2 (event) Not sure [facility] Start: 01-06-2022 End: 11-12-2022 Tobacco smoking status NHIS Unknown if ever smoked [facility] Start: 03-11-2019 None [facility] Start: 09-26-2019 Spouse/ Signif icant Other [facility] Start: 03-18-2019 Non-smoker [facility] Start: 06-01-2022 End: 10-02-2023 History of Social function [facility] Adult Depression Screening Assessment 0 [facility] Start: 08-05-2019 Gender identity Identifies as male gender (finding) [facility] Start: 08-05-2019 Sexual orientation Heterosexual (fin jigar) [facility] Has the [employer], [place], or water Quench threatened to shut off services in your home in past 12Mo No [facility] Work Phone: (I/We) worried wheth er (my/our) food would run out before (I/we) got money to buy more. Never true [facility] Medical Equipment Procedure Code Equipment Code Equipment Origin al Text Equipment Identifier Dates Unify [employer] Associate -D Df4 Connect - [id number] Start: 04-11-[address] [facility] 712 2q - [id number] Start: 04-11-2011 Quartet Linda lar Lead-75 - [id number] Start: 04-11-[address] [facility] 168 8tc - [id number] Start: 04-11-2011 [id number] Start: 11-08-2019 End: 10-02-2023 Comment on above: 1 Each by INJECTION( UNSPECIFIED PARENTERAL ROUTES) route five times daily. 1 Strip twice daily. [id number] Uni fy [id number] Start: 04-11-2011 [id number] Quadra Assura Mp [id number] Start: 12-20-2018 [id number] 7122q Dur matty [id number] Start: 04-11-2011 [id number] [id number] Quartet [id number] Start: 04-11-2011 [id number] [id number] Tendril Sdx [id number] Start: 04-11-2011 Goals Date Patient Goal Desired Activity /State Personal health goal Personal health goal Personal health goal Functional Status Date Assessment Result Facility 10-18-2023 Are you deaf, or do you have serious difficulty hearing No 10/18/2023 3:28 PM Katie Marinelli RN [facility] 10-18-2023 Are you blind, or do you have serious difficulty seeing, even when wearing glasses No 10/18/2023 3:28 PM Katie Marinelli RN No [facility] 10-18-2023 Do you have serious difficulty walking or climbing stairs No 10/18/2023 3:28 PM Katie Marinelli RN No [facility] 10-18-2023 Do you have difficul ty dressing or bathing No 10/18/2023 3:28 PM Katie Marinelli RN No [facility] 10-18-2023 Because of a physica l, mental, or emotional condition, do you have difficulty doing errands alone such as visiting a physician's office or shopping No 10/18/2023 3:28 PM EDT Katie Paul RN No [facility] 07-01-2023 Functional Status Bathroom light on, Non-Slip footwear, Room check performed [facility] 07-01-2023 Functional Status [facility] 07-01-2023 Functional Status [facility] 07-01-2023 Functional Status [facility] 06-30-2023 Functional Status [facility] 06-30-2023 Functional Status Patient Identi fied Identification band, Verbal [facility] 06-30-2023 Functional Status Maintained [facility] 06-08-2023 Functional Status Assistive Device None [facility] Mental Status Date Assessment Result Facility 10-18-2023 Because of a physica l, mental, or emotional condition, do you have serious difficulty concentrating, remembering, or making decisions No 10/18/2023 3:28 PM EDT Katie Paul RN No [facility] 07-01-2023 [facility] Clinical Notes 06-01-2021 to 08-21-2024 Telephone Encounter - Florecita Ro MA - 08/21/2024 9:59 AM EDTTelephone Encounter - Florecita Ro MA - 08/21/2024 9:59 AM EDTTelephone Encounter - Samreen Yang - 08/20/2024 2:22 PM EDT Note Date & Type Note Facility 08-21-2024 Telephone encounter Note Pati Frausto MD I can see patient. [facility] 08-21-2024 Miscellaneous Notes Pati Frausto MD I can see patient. Patient was referred to gastroenterology for Lesion of spleen [D73.89] and Splenomegaly [R16.1]. The scheduling decision tree populated general surgery. Patient scheduled for 08/26/24 at [facility] with Dr. Pati Frausto. Please only notify patient if needing to be seen by GI specialist instead. documented in this encounter [facility] 08-20-2024 Telephone encounter Note Patient was referred to gastroenterology for Lesion of spleen [D73.89] and Splenomegaly [R16.1]. The scheduling decision tree populated general surgery. Patient scheduled for 08/26/24 at [facility] with Dr. Pati Frausto. Please only notify patient if needing to be seen by GI specialist instead. [facility] 08-20-2024 History of Presen t illness Narrative AAMBULATORY TELEPHONE VISIT [facility] Lc Grubbs has consented to this telephone encounter. Persons Present: patient and patient's spouse/significant other I have communicated my name and active licensure. The patient's identity and physical location were verified at the time of this visit. Either the patient or their legal malt liquors sales representative has been informed of the risks and benefits of, and alternatives to, treatment through a remote evaluation and consents to proceed with the evaluation remotely. CHIEF COMPLAINT: Abnormal finding of diagnostic imaging INITIAL VISIT: No PRIMARY CARE PHYSICIAN: Marciano Weaver MD HPI: Subjectively, the patient reports here to discuss results PAST MEDICAL HISTORY Diagnosis Date Asthma Atrial fibrillation (HCC) S/P successful cardioversion in 2015; maintained on Sotolol and Eliquis Cardiac defibrillator in place April 2011 CHF (congestive heart failure) (HCC) Class III Depression Diabetes mellitus (HCC) H/O bariatric surgery 08/2019 Hyperlipidemia Hypertension Kidney stone Morbid obesity (HCC) Non-ischemic cardiomyopathy (HCC) 2011 Biventricular pacing device/defibrillator placed; EF recovered to 65% in 2016 ARAMNDO (obstructive sleep apnea) CPAP PAST SURGICAL HISTORY Procedure Laterality Date ABLATION A-FIB BY PVI 06/30/2023 CARDIAC CATH 07/2016 done for positive stress test; Mild CAD of LAD, Circumflex, and RCA; EF 40-45% CARDIOVERSION 2016 Successful cardioversion of atrial fibrillation COLONOSCOPY maybe 10 yrs ago DEFIBRILLATOR SURGERY 12/20/2018 EGD 09/03/2019 GASTRIC WALL TISSUE WITH MILD REACTIVE GASTROPATHY EGD EUS 01/07/2020 ELBOW 03/04/2014 reconstructed elbow LAP SLEEVE GASTRECTOMY 09/03/2019 hernia repair, lysis of adhesions and intraoperative EGD LIVER BIOPSY 07/01/2020 PACEMAKER IMPLANT april [address] [facility] PAST SURGICAL HISTORY OF 10/17/2023 ex lap, MEDARDO, UHR REMOVAL GALLBLADDER 11/2017 TONSILLECTOMY HX 1960's TOOTH EXTRACTION FAMILY HISTORY Problem Relation Age of Onset Cancer Father lung Cancer Mother kidney, bone other (myocardial infarction) Sister Colon Cancer No Family History Social History Tobacco Use Smoking status: Never Smokeless tobacco: Never Vaping Use Vaping status: Never Used Substance Use Topics Alcohol use: No Drug use: No Current Outpatient Medications Medication Sig iv contrast (will be provided with radiology test) CT ABD/PEL -Inject, intravenously, once for 1 dose.No IV access, insert saline lock prior to the beginning of sedation, infusion, injection of imaging exam. Discontinue saline lock post exam. If Pt. has a central line or IVAD, may access for administration according to line specific nursing protocol. Once exam is complete flush line and de-access according to line specific nursing protocol in the CT contrast administration guidelines link. apixaban (ELIQUIS) 5 mg tab(s) Take 5 mg by mouth two times a day. flash glucose scanning reader (FREESTYLE CASSANDRA 2 READER) metFORMIN ER (GLUCOPHAGE XR) 500 mg 24 hr tablet Take 3 tablets by mouth once daily. Patient may take 2 pills with breakfast and one with dinner dulaglutide (TRULICITY) 1.5 mg/0.5 mL pen injector Inject 1.5 mg subcutaneously one time a week. CPAP Please lower PAP to 15/11 cmH2O. Please send us 2 week download at new pressure. 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 Also please refit patient's dreamwear FFM - the headgear/tubing is likely one size too small and thus pulling up on nose through the night. DME = [facility] carvedilol (COREG) 6.25 mg tablet Take 3.125 mg by mouth twice daily with meals. furosemide (LASIX) 20 mg tablet Take 20 mg by mouth once daily. capsaicin (ZOSTRIX) 0.025 % cream Apply to affected area three times daily. Cyanocobalamin 1,000 mcg subl Dissolve 1 tablet under the tongue once daily. CPAP Please adjust bilevel to 17/13 cmH2O and turn off backup rate. Please provide download in 2-3 weeks. Please fit with Minimus Spinewear full face mask (under nose - med frame, large cushion). ADVAIR DISKUS 500-50 mcg/dose dsdv INHALE ONE PUFF INTO THE LUNGS TWICE DAILY potassium citrate ER (UROCIT-K) 5 mEq (540 mg) TbER Take 1 tablet by mouth once daily. EASY TOUCH 31 gauge x 5/16 1 Each by INJECTION(UNSPECIFIED PARENTERAL ROUTES) route five times daily. aspirin, enteric coated (ASPIRIN, ENTERIC COATED) 81 mg EC tablet Take 1 tablet by mouth once daily. ascorbic acid, vitamin C, (VITAMIN C) 500 mg tablet Take 500 mg by mouth once daily. Fluticasone Propionate (FLOVENT DISKUS) 100 mcg/actuation Inhale 1 Puff as instructed twice daily. After Advair tamsulosin ER (FLOMAX) 0.4 mg Take 0.4 mg by mouth once daily. albuterol HFA (PROVENTIL HFA, VENTOLIN HFA) 90 mcg/actuation inhaler Inhale 2 Puffs as instructed every 4 hours as needed for Wheezing/Shortness of Breath. alpha lipoic acid 200 mg cap Take 200 mg by mouth once daily. magnesium oxide 400 mg magnesium tab Take 400 mg by mouth twice daily. CPAP Change bilevel setting to 20/15 cmH2O with BR 16 BPM. Please fax us download in 2 weeks. buPROPion XL (WELLBUTRIN XL) 150 mg 24 hr tablet Take 150 mg by mouth once daily. montelukast (SINGULAIR) 10 mg tablet Take 10 mg by mouth daily at bedtime. atorvastatin (LIPITOR) 20 mg tablet Take 20 mg by mouth once daily. multivitamin ORAL tablet Take one(1) tablet daily. No current facility-administered medications for this visit. Review of patient's allergies indicates: ALLERGIES Allergen Reactions Avelox [Moxifloxaci* Hives Data Reviewed: Most recent imaging CT A/P 08/12/2024 1. Again demonstrated is splenomegaly with multiple hypodense lesions within the spleen. No associated lymphadenopathy of the abdomen or pelvis is seen. Many of the splenic lesions have mildly increased in size when compared to prior exam. Given the continued increase in size, tissue sampling should be considered if clinically feasible. 2. Nephrolithiasis, with a 1.3 cm calculus of the left renal pelvis again noted and now more centrally located within the renal pelvis. There is also new haziness of the fat surrounding the left renal pelvis, and thickening of the proximal ureter distal to the calculus. These findings may reflect an infectious or inflammatory etiology, though a neoplastic process is not excluded. Further evaluation with CT urogram and urologic consultation is recommended. Also noted is a 3 mm calculus of the bladder in the region of the left UVJ. ASSESSMENT: Lc Grubbs is 73 year old male here to follow up on CT A/P results 08/12/2024 (N28.82) Ureteral dilatation (primary encounter diagnosis) (N20.0) Nephrolithiasis (D73.89) Lesion of spleen (R16.1) Splenomegaly PLAN: We discussed options R/B/A and pt opts to see specialists 1. Ureteral dilatation (Primary) - CONSULT TO UROLOGY; Future 2. Nephrolithiasis - CONSULT TO UROLOGY; Future 3. Lesion of spleen - CONSULT TO GASTROENTEROLOGY; Future 4. Splenomegaly - CONSULT TO GASTROENTEROLOGY; Future Total Time Spent: 10 minutes Lisa Victoria APRN.CNP documented in this encounter [facility] 08-17-2024 Radiology Diagnostic study note [facility] [address] [place] [address] Ribs Uni Min 3V w/PA Chest MR#: [id number] Acct: [id number] Name: LC GRUBBS Rep #: [id number] : 1950 M 73 From: Keisah Castelan MD PCP: Dr. Marciano Weaver MD Status: REG CLI Study:Ribs Uni Min 3V w/PA Chest Date of Exam : 08/16/24 Exam# [id number] Ordering Dr: Al Espinoza MD PROCEDURE: RIBS UNI MIN 3V W/PA CHEST 08/16/2024 REASON FOR EXAM: PAIN RIBS TECHNIQUE: RIBS UNI MIN 3V W/PA CHEST COMPARISON: Prior examination on 09/26/2019 FINDINGS: The lungs are expanded. Minimal linear atelectatic changes are seen in the lungbases. There is no demonstrated parenchymal abnormality. There is no demonstrated pleural abnormality. The heart is enlarged. Left-sided pacemaker again seen. Normal mediastinum and fernando. Normal visualized pulmonary arteries. Normal visualized aortic arch and descending thoracic aorta. The bones are osteoporotic. Normal visualized thoracic spine. Normal visualized clavicles, and shoulders. There is slight deformity of right ribs 6 and 11 possibly representing nondisplaced right-sided rib fractures. There is no demonstrated abnormality of the visualized soft tissue structures ofthe upper abdomen. RAD/Ribs Uni Min 3V w/PA Chest IMPRESSION: Osteoporosis. Possible nondisplaced fractures of right ribs 6 and 11. Please correlate clinically. Cardiomegaly. Minimal linear atelectatic changes in the lung bases. Reading Location: [place] [address] CC: Dr. Marciano Weaver MD; Dr. Al Espinoza MD ~ Lining Strap Closer: Signed [facility] 08-14-2024 Evaluation note Diagnosis Onset Date Resolution Back pain acute August 14, 2024 8:55am Segmental and somatic dysfunction of lumbar region acute August 14, 2024 8 :55am Segmental and somatic dysfunction of pelvic region acute August 14, 2024 8 :55am Segmental and somatic dysfunction of thoracic region acute August 14, 2024 8 :55am DDD (degenerative disc disease) chronic August 14, 2024 8 :55am [facility] Work Phone: 1(780) 988-379607-07-2025 History of Present illness Narrative* Ingrid Bejarano, RT(R) - 08/12/2024 11:20 AM EDT Radiology Service Progress Note DATE OF SERVICE: August 12, 2024 TIME: 2:00 PM PATIENT IDENTITY VERIFICATION COMPLETED USING TWO (2) STANDARD IDENTIFIERS: Name and Date of confirmed by patient verbally. FALL SCREENING: Has the patient had 2 falls in the last year or 1 fall with injury or currently using an Ambulatory Assistive Device (Walker, Cane, Wheelchair, Crutches, etc.)? No PATIENT GENDER DATA: Assigned male at PATIENT RELEVANT IMPLANT DATA REVIEWED: Yes PATIENT PRESENTS WITH AN IMPLANTABLE OR ATTACHED MANAGER STRATEGIC PARTNERSHIPS: No ALLERGIES: Reviewed and unchanged CONTRAST ALLERGY: NO. EXAM: CT -CONTRAST INDUCED NEPHROPATHY RISK FACTORS: Patient age > 60 years CREATININE: Creatinine Date Value Ref Range Status 08/12/2024 1.08 0.73 - 1.22 mg/dL Final 10/18/2023 1.29 (H) 0.73 - 1.22 mg/dL Final 10/16/2023 1.54 (H) 0.73 - 1.22 mg/dL Final Estimated Glomerular Filtration Rate Date Value Ref Range Status 08/12/2024 72 >=60 mL/min/1.73m Final Comment: Estimated Glomerular Filtration Rate (eGFR) is calculated using the 2020 CKD-EPI creatinine equation. This equation utilizes serum creatinine, sex, and age as parameters. The creatinine assay has traceable calibration to isotope dilution- mass spectrometry. Refer to KDIGO guidelines for clinical interpretation. In patients with unstable renal function, e.g. those with acute kidney injury, the eGFRmay not accurately reflect actual GFR. eGFR- Date Value Ref Range Status 09/14/2020 >60 Final P.O.C.T. RESULTS: POC done: Yes, See Lab Tab August 12, 2024 TREATMENT: N/A PERIPHERAL IV DATA: Ambulatory: A peripheral IV was started in the Left antecubital site with a Angio cath: 22 gauge. RADIOLOGY DEPARTMENT: CT; Exam(s) Completed: Abdomen/Pelvis SIGNATURE: RT Miriam(Faviola) PATIENT NAME: Lc Grubbs DATE: August 12, 2024 TIME: 2:00 PM [facility] NoteHNO ID: [id number] Author: INGRID BEJARANO RT(R) Service: ? Author Type: Backhoe Operator Type: Progress Notes Filed: 08/12/2024 14:01 Note Text: Radiology Service Progress Note DATE OF SERVICE: August 12, 2024 TIME: 2:00 PM PATIENT IDENTITY VERIFICATION COMPLETED USING TWO (2) STANDARD IDENTIFIERS: Name and Date of confirmed by patient verbally. FALL SCREENING: Has the patient had 2 falls in the last year or 1 fall with injury or currently using an Ambulatory Assistive Device (Walker, Cane, Wheelchair, Crutches, etc.)? No PATIENT GENDER DATA: Assigned male at PATIENT RELEVANT IMPLANT DATA REVIEWED: Yes PATIENT PRESENTS WITH AN IMPLANTABLE OR ATTACHED MANAGER STRATEGIC PARTNERSHIPS: No ALLERGIES: Reviewed and unchanged CONTRAST ALLERGY: NO. EXAM: CT -CONTRAST INDUCED NEPHROPATHY RISK FACTORS: Patient age > 60 years CREATININE: Creatinine Date Value Ref Range Status 08/12/2024 1.08 0.73 - 1.22 mg/dL Final 10/18/2023 1.29 (H) 0.73 - 1.22 mg/dL Final 10/16/2023 1.54 (H) 0.73 - 1.22 mg/dL Final Estimated Glomerular Filtration Rate Date Value Ref Range Status 08/12/2024 72 >=60 mL/min/1.73m? Final Comment: Estimated Glomerular Filtration Rate (eGFR) is calculated using the 2020 CKD-EPI creatinine equation. This equation utilizes serum creatinine, sex, and age as parameters. The creatinine assay has traceable calibration to isotope dilution-mass spectrometry. Refer to KDIGO guidelines for clinical interpretation. In patients with unstable renal function, e.g. those with acute kidney injury, the eGFR may not accurately reflect actual GFR. eGFR- Date Value Ref Range Status 09/14/2020 >60 Final P.O.C.T. RESULTS: POC done: Yes, See Lab Tab August 12, 2024 TREATMENT: N/A PERIPHERAL IV DATA: Ambulatory: A peripheral IV was started in the Left antecubital site with a Angio cath: 22 gauge. 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 Scanned in the system and the shared drive. Faxed to [phone] Sol Duarte, Admin [facility]03-18-2025 Miscellaneous Notes* Telephone Encounter - Sol Duran - 04/23/2024 8:55 AM EDT Received completed pacemaker form. Scanned in the system and the shared drive. Faxed to [phone] Sol Duarte, Admin documented in [facility]01-28-2025 NoteHNO ID: [id number] Author: LUCIE REYNOLDS APRN.ENVIRONMENTAL SCIENCE TECHNICIAN Service: ? Author Type: Nurse Practitioner Type: Progress Notes Filed: 03/05/2024 10:57 Note Text: [facility] PATIENT NAME: Lc Grubbs PRIMARY CARE PHYSICIAN: Marciano Weaver MD CHIEF COMPLAINT: Abnormal finding of diagnostic imaging INITIAL VISIT: Yes Patient seen on Audio Only Visit platform. Location of patient: [place] HPI: This is a 73 year old male who presents for further management of a possible abnormal CT Abdomen/Pelvis done 10/16/23 showing 2 enlarging indeterminate splenic lesions and splenomegaly. At the time the patient had an incarcerated hernia. Subjectively, the patient has a history of pacemaker/defibrillator. No hx lymphoproliferative disease, autoimmune disease or cancer. +Fatty liver. PAST MEDICAL HISTORY Diagnosis Date Asthma Atrial fibrillation (HCC) S/P successful cardioversion in 2015; maintained on Sotolol and Eliquis Cardiac defibrillator in place April 2011 CHF (congestive heart failure) (HCC) Class III Depression Diabetes mellitus (HCC) H/O bariatric surgery 08/2019 Hyperlipidemia Hypertension Kidney stone Morbid obesity (HCC) Non-ischemic cardiomyopathy (HCC) 2011 Biventricular pacing device/defibrillator placed; EF recovered to 65% in 2017 ARMANDO (obstructive sleep apnea) CPAP PAST SURGICAL HISTORY Procedure Laterality Date ABLATION A-FIB BY PVI 06/30/2023 CARDIAC CATH 07/2016 done for positive stress test; Mild CAD of LAD, Circumflex, and RCA; EF 40-45% CARDIOVERSION 2016 Successful cardioversion of atrial fibrillation COLONOSCOPY maybe 10 yrs ago DEFIBRILLATOR SURGERY 12/20/2018 EGD 09/03/2019 GASTRIC WALL TISSUE WITH MILD REACTIVE GASTROPATHY EGD EUS 01/07/2020 ELBOW 03/04/2014 reconstructed elbow LAP SLEEVE GASTRECTOMY 09/03/2019 hernia repair, lysis of adhesions and intraoperative EGD LIVER BIOPSY 07/01/2020 PACEMAKER IMPLANT april [address] [facility] PAST SURGICAL HISTORY OF 10/17/2023 ex lap, MEDARDO, UHR REMOVAL GALLBLADDER 11/2017 TONSILLECTOMY HX 1960's TOOTH EXTRACTION FAMILY HISTORY Problem Relation Age of Onset Cancer Father lung Cancer Mother kidney, bone other (myocardial infarction) Sister Colon Cancer No Family History Social History Tobacco Use Smoking status: Never Smokeless tobacco: Never Vaping Use Vaping status: Never Used Substance Use Topics Alcohol use: No Drug use: No Current Outpatient Medications Medication Sig iv contrast (will be provided with radiology test) CT ABD/PEL -Inject, intravenously, once for 1 dose.No IV access, insert saline lock prior to the beginning of sedation, infusion, injection of imaging exam. Discontinue saline lock post exam. If Pt. has a central line or IVAD, may access for administration according to line specific nursing protocol. Once exam is complete flush line and de-access according to line specific nursing protocol in the CT contrast administration guidelines link. apixaban (ELIQUIS) 5 mg tab(s) Take 5 mg by mouth two times a day. flash glucose scanning reader (Bolt HR CASSANDRA 2 READER) metFORMIN ER (GLUCOPHAGE XR) 500 mg 24 hr tablet Take 3 tablets by mouth once daily. Patient may take 2 pills with breakfast and one with dinner dulaglutide (TRULICITY) 1.5 mg/0.5 mL pen injector Inject 1.5 mg subcutaneously one time a week. CPAP Please lower PAP to 15/11 cmH2O. Please send us 2 week download at new pressure. Inhalational Spacing Device (BREATHERITE VALVED MDI SPACER) BREATHERITE VALVED MDI CHAMBER [employer] SUPPLIES [phone] Corinna London CPAP Increase bilevel to 22/18 cmH2O with backup rate of 12 BPM. Also please refit patient's dreamwear FFM - the headgear/tubing is likely one size too small and thus pulling up on nose through the night. DME = [facility] carvedilol (COREG) 6.25 mg tablet Take 3.125 mg by mouth twice daily with meals. furosemide (LASIX) 20 mg tablet Take 20 mg by mouth once daily. capsaicin (ZOSTRIX) 0.025 % cream Apply to affected area three times daily. Cyanocobalamin 1,000 mcg subl Dissolve 1 tablet under the tongue once daily. CPAP Please adjust bilevel to 17/13 cmH2O and turn off backup rate. Please provide download in 2-3 weeks. Please fit with dreamwear full face mask (under nose - med frame, large cushion). ADVAIR DISKUS 500-50 mcg/dose dsdv INHALE ONE PUFF INTO THE LUNGS TWICE DAILY potassium citrate ER (UROCIT-K) 5 mEq (540 mg) TbER Take 1 tablet by mouth once daily. EASY TOUCH 31 gauge x 5/16 1 Each by INJECTION(UNSPECIFIED PARENTERAL ROUTES) route five times daily. aspirin, enteric coated (ASPIRIN, ENTERIC COATED) 81 mg EC tablet Take 1 tablet by mouth once daily. ascorbic acid, vitamin C, (VITAMIN C) 500 mg tablet Take 500 mg by mouth once daily. Fluticasone Propionate (FLOVENT DISKUS) 100 mcg/actuation Inhale 1 (more content not included)...[facility]01-28-2025 History of Present illness Narrative* Lucie Reynolds APRN.ENVIRONMENTAL SCIENCE TECHNICIAN - 03/05/2024 10:50 AM EST [facility] PATIENT NAME: Lc Grubbs PRIMARY CARE PHYSICIAN: Marciano Weaver MD CHIEF COMPLAINT: Abnormal finding of diagnostic imaging INITIAL VISIT: Yes Patient seen on Audio Only Visit platform. Location of patient: [place] HPI: This is a 73 year old male who presents for further management of a possible abnormal CT Abdomen/Pelvis done 10/16/23 showing 2 enlarging indeterminate splenic lesions and splenomegaly. At the time the patient had an incarcerated hernia. Subjectively, the patient has a history of pacemaker/defibrillator. No hx lymphoproliferative disease, autoimmune disease or cancer. +Fatty liver. PAST MEDICAL HISTORY Diagnosis Date Asthma Atrial fibrillation (HCC) S/P successful cardioversion in 2015; maintained on Sotolol and Eliquis Cardiac defibrillator in place April 2011 CHF (congestive heart failure) (HCC) Class III Depression Diabetes mellitus (HCC) H/O bariatric surgery 08/2019 Hyperlipidemia Hypertension Kidney stone Morbid obesity (HCC) Non-ischemic cardiomyopathy (HCC) 2011 Biventricular pacing device/defibrillator placed; EF recovered to 65% in 2017 ARMANDO (obstructive sleep apnea) CPAP PAST SURGICAL HISTORY Procedure Laterality Date ABLATION A-FIB BY PVI 06/30/2023 CARDIAC CATH 07/2016 done for positive stress test; Mild CAD of LAD, Circumflex, and RCA; EF 40-45% CARDIOVERSION 2016 Successful cardioversion of atrial fibrillation COLONOSCOPY maybe 10 yrs ago DEFIBRILLATOR SURGERY 12/20/2018 EGD 09/03/2019 GASTRIC WALL TISSUE WITH MILD REACTIVE GASTROPATHY EGD EUS 01/07/2020 ELBOW 03/04/2014 reconstructed elbow LAP SLEEVE GASTRECTOMY 09/03/2019 hernia repair, lysis of adhesions and intraoperative EGD LIVER BIOPSY 07/01/2020 PACEMAKER IMPLANT april [address] [facility] PAST SURGICAL HISTORY OF 10/17/2023 ex lap, MEDARDO, UHR REMOVAL GALLBLADDER 11/2017 TONSILLECTOMY HX 1960's TOOTH EXTRACTION FAMILY HISTORY Problem Relation Age of Onset Cancer Father lung Cancer Mother kidney, bone other (myocardial infarction) Sister Colon Cancer No Family History Social History Tobacco Use Smoking status: Never Smokeless tobacco: Never Vaping Use Vaping status: Never Used Substance Use Topics Alcohol use: No Drug use: No Current Outpatient Medications Medication Sig iv contrast (will be provided with radiology test) CT ABD/PEL -Inject, intravenously, once for 1 dose.No IV access, insert saline lock prior to the beginning of sedation, infusion, injection of imaging exam. Discontinue saline lock post exam. If Pt. has a central line or IVAD, may access for administration according to line specific nursing protocol. Once exam is complete flush line and de-accessaccording to line specific nursing protocol in the CT contrast administration guidelines link. apixaban (ELIQUIS) 5 mg tab(s) Take 5 mg by mouth two times a day. flash glucose scanning reader (Bolt HR CASSANDRA 2 READER) metFORMIN ER (GLUCOPHAGE XR) 500 mg 24 hr tablet Take 3 tablets by mouth once daily. Patient may take 2 pills with breakfast and one with dinner dulaglutide (TRULICITY) 1.5 mg/0.5 mL pen injector Inject 1.5 mg subcutaneously one time a week. CPAP Please lower PAP to 15/11 cmH2O. Please send us 2 week download at new pressure. Inhalational Spacing Device (BREATHERITE VALVED MDI SPACER) BREATHERITE VALVED MDI CHAMBER [employer] SUPPLIES [phone] Corinna London CPAP Increase bilevel to 22/18 cmH2O with backup rate of 12 BPM. Also please refit patient's dreamwear FFM - the headgear/tubing is likely one size too small and thus pulling up on nose through the night. DME = [facility] carvedilol (COREG) 6.25 mg tablet Take 3.125 mg by mouth twice daily with meals. furosemide (LASIX) 20 mg tablet Take 20 mg by mouth once daily. capsaicin (ZOSTRIX) 0.025 % cream Apply to affected area three times daily. Cyanocobalamin 1,000 mcg subl Dissolve 1 tablet under the tongue once daily. CPAP Please adjust bilevel to 17/13 cmH2O and turn off backup rate. Please provide download in 2-3 weeks. Please fit with Minimus Spinewear full face mask (under nose - med frame, large cushion). ADVAIR DISKUS 500-50 mcg/dose dsdv INHALE ONE PUFF INTO THE LUNGS TWICE DAILY potassium citrate ER (UROCIT-K) 5 mEq (540 mg) TbER Take 1 tablet by mouth once daily. EASY TOUCH 31 gauge x 5/16 1 Each by INJECTION(UNSPECIFIED PARENTERAL ROUTES) route five times daily. aspirin, enteric coated (ASPIRIN, ENTERIC COATED) 81 mg EC tablet Take 1 tablet by mouth once daily. ascorbic acid, vitamin C, (VITAMIN C) 500 mg tablet Take 500 mg by mouth once daily. Fluticasone Propionate (FLOVENT DISKUS) 100 mcg/actuation Inhale 1 Puff as instructed twice daily. After Advair tamsulosin ER (FLOMAX) 0.4 mg Take 0.4 mg by mouth once daily. albuterol HFA (PROVENTIL HFA, VENTOLIN HFA) 90 mcg/actuation inhaler Inhale 2 Puffs as instructed every 4 hours as needed for Wheezing/Shortness of Breath. alpha lipoic acid 200 mg cap Take 200 mg by mouth once daily. magnesium oxide 400 mg magnesium tab Take 400 mg by mouth twice daily. CPAP Change bilevel setting to 20/15 cmH2O with BR 16 BPM. Please fax us download in 2 weeks. buPROPion XL (WELLBUTRIN XL) 150 mg 24 hr tablet Take 150 mg by mouth once daily. montelukast (SINGULAIR) 10 mg tablet Take 10 mg by mouth daily at bedtime. atorvastatin (LIPITOR) 20 mg tablet Take 20 mg by mouth once daily. multivitamin ORAL tablet Take one(1) tablet daily. No current facility-administered medications for this visit. Review of patient's allergies indicates: ALLERGIES Allergen Reactions Avelox [Moxifloxaci* Hives DATA REVIEWED: Imaging: * * *Final Report* * * DATE OF EXAM: Oct 16 2023 10:49PM [facility] 0530 - CT ABD/PEL W IVCON / PROCEDURE REASON: Bowel obstruction suspected * * * * Physician Interpretation * * * * EXAMINATION: CT ABDOMEN AND PELVIS WITH IV CONTRAST CLINICAL HISTORY: Nausea and vomiting, periumbilical pain and nausea. TECHNIQUE: CT of the abdomen and pelvis was performed using standard technique, scanning from just above the dome of the diaphragm to the symphysis pubis. MQ: CTAP_3 Contrast: IV: 100 ml of Omnipaque 300 CT Radiation dose: Integrated Dose-length product (DLP) for this visit = 1093.68 mGy*cm. CT Dose Reduction Employed: Automated exposure control(AEC) and iterative recon COMPARISON: CT abdomen and pelvis 01/25/2019. RESULT: Liver: Unchanged low density cyst in the left hepatic lobe. Biliary: No bile duct dilation. Gallbladder is absent. Spleen: Stable mild splenomegaly at 15.8 cm with the redemonstration of several indeterminate splenic lesions. Two hypodense lesions have increased in size, measuring 1.8 cm anteriorly and 2.3 cm posteriorly. Pancreas: No mass or duct dilation. Adrenals: No mass. Kidneys: 1.0 cm stone in the right renal pelvis with adjacent uroepithelial thickening. No nancy hydronephrosis. 1.5 cm low density cyst in the right mid kidney. GI tract: Large umbilical ventral abdominal wall hernia containing a short segment loop of small bowel, which is dilated measuring up to 3.5 cm and mild adjacent ascites/fluid . Postsurgical changes of prior gastric sleeve surgery. Colonic diverticulosis. Lymph nodes: No abdominal or pelvic lymphadenopathy. Mesentery/Peritoneum: No ascites or mass. Retroperitoneum: No mass. Vasculature: - Abdominal aorta and iliac arteries: Atherosclerotic calcifications without aneurysm. - Celiac and SMA: Patent without stenosis. - Portal venous system (SMV, splenic vein, portal vein and branches): Patent. - Hepatic veins: Patent. Pelvis: No mass, ascites or fluid collection. Bones/Soft Tissues: Degenerative changes. Additional smaller fat-containing supraumbilical ventral abdominal hernia. Lower thorax: Mild linear opacities in the lung bases favored to represent atelectasis. No consolidation. Partially visualized ICD leads. Localizer images: No additional findings. Labs: ASSESSMENT: This is a 73 year old male with an actionable finding of splenic lesions and splenomegaly. Recommend CT Abdomen 6 month follow up. No hx malignancy. Patient is agreeable to the plan. PLAN: 1. Orders include: CT Abdomen Pelvis with IV contrast. 2. Consult to: Not indicated. 3. Follow-up with the [facility]: After completion of recommended imaging. 4. Follow-up with PCP and/or established care teams as needed. - All questions answered Imaging: CT ABD/PEL W IVCON (CT ABD/PEL (NO ORAL) W IVCON ROUTINE ) Lucie Reynolds APRN.ENVIRONMENTAL SCIENCE TECHNICIAN March 05, 2024 10:51 AM I spent a total of 15 minutes on the date of the service which included preparing to see the patient, completing clinical documentation, and counseling and educating the patient/family/caregiver. Has appointment been recommended and forwarded to be made several days after the imaging? Yes No future appointments. Follow-up Plan Additional exams needed for this actionable finding? Yes If Yes, Imaging: CT ABD/PEL W IVCON (CT ABD/PEL (NO ORAL) W IVCON ROUTINE ) Consults requested: No; Service: n/a If No, patient referred back to PCP's care? Does patient have a PCP? Yes If Yes, PCP copied and referred back? Yes If no, patient assisted in setting up care with primary care? N/a If no, patient declined? N/a [facility] Telephone encounter Note * Telephone Encounter - Lucie Reynolds APRN.CNP - 02/21/2024 4:32 PM EST Actionable Finding Details: Exam: CT Abdomen/pelvis Date: 10/16/23 Findin enlarging spleen lesions Recommendation: CT or MRI Abdomen MyChart: Activated. ISABEL Outreach Attempt? Yes via Kazaanat Message with no response. Routed to AFC scheduling for phone call outreach attempt (1) and final notification per current protocol If any questions/concerns, please re-route to AFC provider for review. Lucie Reynolds APRN.CNP [facility] [place] [phone] [facility] Work Phone: [phone] Miscellaneous Notes* Telephone Encounter - Lucie Reynolds APRN.CNP - 02/21/2024 4:32 PM EST Actionable Finding Details: Exam: CT Abdomen/pelvis Date: 10/16/23 Findin enlarging spleen lesions Recommendation: CT or MRI Abdomen MyChart: Activated. ISABEL Outreach Attempt? Yes via Kazaanat Message with no response. Routed to AFC scheduling for phone call outreach attempt (1) and final notification per current protocol If any questions/concerns, please re-route to AFC provider for review. Lucie Reynolds APRN.CNP Actionable Findings [facility] [place] [phone] documented in this encounterK[facility]12-04-2024 NoteHNO ID: [id number] Author: RATURO COBOS APRN.TABBY Service: ? Author Type: Nurse Practitioner Type: Progress Notes Filed: 01/10/2024 12:35 Note Text: [facility] [place] [facility] Department of Cardiovascular Medicine SECTION OF CARDIAC PACING and ELECTROPHYSIOLOGY OUTPATIENT VISIT DATE January 10, 2024 OUTPATIENT VISIT TYPE ESTABLISHED PRIMARY CARE PHYSICIAN: Marciano Weaver (Ac) [address] [place] [address] REFERRING PHYSICIAN: Dr. Wali Bravo To schedule an appointment please call [phone] Other questions or concerns please his office at [phone] CHIEF COMPLAINT: Persistent atrial fibrillation HISTORY OF PRESENT ILLNESS: Mr. Grubbs is a 73 year old male who presents today for follow-up visit pre cardioversion scheduled for later today. He is an established patient of Dr. Dominguez last seen on 10/02/2023. He had a PMH of asthma, atrial fibrillation (s/p cardioversion 2015; sotolol AND eliquis), CHF s/p INCINERATOR ATTENDANT-D 04/11/2011, [place], long QT, COPD, depression, nonobstructive CAD, HLD, HTN, obesity (BMI 45.5) status post gastric sleeve 2020 (lost ~100 lbs), diabetes and ARMANDO on CPAP. He had a cryo PVAI 06/30/2023. reports she was called and notified patient needed to come in for a DCC. He was found to be AFL with ventricular rates 140s bpm. He reports he PAST CARDIAC HISTORY: PAST MEDICAL HISTORY Diagnosis Date Asthma Atrial fibrillation (HCC) S/P successful cardioversion in 2015; maintained on Sotolol and Eliquis Cardiac defibrillator in place April 2011 CHF (congestive heart failure) (HCC) Class III Depression Diabetes mellitus (HCC) H/O bariatric surgery 08/2019 Hyperlipidemia Hypertension Kidney stone Morbid obesity (HCC) Non-ischemic cardiomyopathy (HCC) 2011 Biventricular pacing device/defibrillator placed; EF recovered to 65% in 2017 ARMANDO (obstructive sleep apnea) CPAP PAST SURGICAL HISTORY Procedure Laterality Date ABLATION A-FIB BY PVI 06/30/2023 CARDIAC CATH 07/2016 done for positive stress test; Mild CAD of LAD, Circumflex, and RCA; EF 40-45% CARDIOVERSION 2015 Successful cardioversion of atrial fibrillation COLONOSCOPY maybe 10 yrs ago DEFIBRILLATOR SURGERY 12/20/2018 EGD 09/03/2019 GASTRIC WALL TISSUE WITH MILD REACTIVE GASTROPATHY EGD EUS 01/07/2020 ELBOW 03/04/2014 reconstructed elbow LAP SLEEVE GASTRECTOMY 09/03/2019 hernia repair, lysis of adhesions and intraoperative EGD LIVER BIOPSY 07/01/2020 PACEMAKER IMPLANT april [address] [facility] PAST SURGICAL HISTORY OF 10/17/2023 ex lap, MEDARDO, UHR REMOVAL GALLBLADDER 11/2017 TONSILLECTOMY HX 1960's TOOTH EXTRACTION SOCIAL HISTORY Social History Tobacco Use Smoking status: Never Smokeless tobacco: Never Vaping Use Vaping status: Never Used Substance Use Topics Alcohol use: No Drug use: No FAMILY HISTORY Problem Relation Age of Onset Cancer Father lung Cancer Mother kidney, bone other (myocardial infarction) Sister Colon Cancer No Family History ALLERGIES: ALLERGIES Allergen Reactions Avelox [Moxifloxaci* Hives MEDICATIONS: apixaban (ELIQUIS) 5 mg tab(s) Take 5 mg by mouth two times a day. flash glucose scanning reader (FREESTYLE CASSANDRA 2 READER) metFORMIN ER (GLUCOPHAGE XR) 500 mg 24 hr tablet Take 3 tablets by mouth once daily. Patient may take 2 pills with breakfast and one with dinner dulaglutide (TRULICITY) 1.5 mg/0.5 mL pen injector Inject 1.5 mg subcutaneously one time a week. CPAP Please lower PAP to 15/11 cmH2O. Please send us 2 week download at new pressure. Inhalational Spacing Device (BREATHERITE VALVED MDI SPACER) BREATHERITE VALVED MDI CHAMBER [employer] SUP[employer] [phone] Corinna London CPAP Increase bilevel to 22/18 cmH2O with backup rate of 12 BPM. Also please refit patient's dreamwear FFM - the headgear/tubing is likely one size too small and thus pulling up on nose through the night. DME = [facility] carvedilol (COREG) 6.25 mg tablet Take 3.125 mg by mouth twice daily with meals. furosemide (LASIX) 20 mg tablet Take 20 mg by mouth once daily. capsaicin (ZOSTRIX) 0.025 % cream Apply to affected area three times daily. Cyanocobalamin 1,000 mcg subl Dissolve 1 tablet under the tongue once daily. CPAP Please adjust bilevel to 17/13 cmH2O and turn off backup rate. Please provide download in 2-3 weeks. Please fit with dreamwear full face mask (under nose - med frame, large cushion). ADVAIR DISKUS 500-50 mcg/dose dsdv INHALE ONE PUFF INTO THE LUNGS TWICE DAILY potassium citrate ER (UROCIT-K) 5 mEq (540 mg) TbER Take 1 tablet by mouth once daily. EASY TOUCH 31 gauge x 5/16 1 Each by INJECTION(UNSPECIFIED PARENTERAL ROUTES) route five times daily. aspirin, enteric coated (ASPIRIN, ENTERIC COATED) 81 mg EC tablet Take 1 tablet by mouth once da (more content not included)...[facility] 01-10-2024 History of Present illness Narrative* Arturo Cobos APRN.ENVIRONMENTAL SCIENCE TECHNICIAN - 01/10/2024 11:35 AM EST Images from the original note were not included. [facility] [place] [facility] Department of Cardiovascular Medicine SECTION OF CARDIAC PACING and ELECTROPHYSIOLOGY OUTPATIENT VISIT DATE January 10, 2024 OUTPATIENT VISIT TYPE ESTABLISHED PRIMARY CARE PHYSICIAN: Marciano Weaver ([place]) [address] [facility] [address] [place] [address] REFERRING PHYSICIAN: Dr. Wali Bravo To schedule an appointment please call [phone] Other questions or concerns please his office at [phone] CHIEF COMPLAINT: Persistent atrial fibrillation HISTORY OF PRESENT ILLNESS: Mr. Grubbs is a 73 year old male who presents today for follow-up visit pre cardioversion scheduled for later today. He is an established patient of Dr. Dominguez last seen on 10/02/2023. He had a PMH of asthma, atrial fibrillation (s/p cardioversion 2015; sotolol & eliquis), CHF s/p INCINERATOR ATTENDANT-D 04/11/2011, VT, long QT, COPD, depression, nonobstructive CAD, HLD, HTN, obesity (BMI 45.5) status post gastric sleeve 2019 (lost ~100 lbs), diabetes and ARMANDO on CPAP. He had a cryo PVAI 06/30/2023. reports she was called and notified patient needed to come in for a DCC. He was found to be AFL with ventricular rates 140s bpm. He reports he PAST CARDIAC HISTORY: PAST MEDICAL HISTORY Diagnosis Date Asthma Atrial fibrillation (HCC) S/P successful cardioversion in 2015; maintained on Sotolol and Eliquis Cardiac defibrillator in place April 2011 CHF (congestive heart failure) ([facility]) Class III Depression Diabetes mellitus (HCC) H/O bariatric surgery 08/2019 Hyperlipidemia Hypertension Kidney stone Morbid obesity (HCC) Non-ischemic cardiomyopathy (HCC) 2011 Biventricular pacing device/defibrillator placed; EF recovered to 65% in 2016 ARMANDO (obstructive sleep apnea) CPAP PAST SURGICAL HISTORY Procedure Laterality Date ABLATION A-FIB BY PVI 06/30/2023 CARDIAC CATH 07/2016 done for positive stress test; Mild CAD of LAD, Circumflex, and RCA; EF 40-45% CARDIOVERSION 2016 Successful cardioversion of atrial fibrillation COLONOSCOPY maybe 10 yrs ago DEFIBRILLATOR SURGERY 12/20/2018 EGD 09/03/2019 GASTRIC WALL TISSUE WITH MILD REACTIVE GASTROPATHY EGD EUS 01/07/2020 ELBOW 03/04/2014 reconstructed elbow LAP SLEEVE GASTRECTOMY 09/03/2019 hernia repair, lysis of adhesions and intraoperative EGD LIVER BIOPSY 07/01/2020 PACEMAKER IMPLANT april [address] [facility] PAST SURGICAL HISTORY OF 10/17/2023 ex lap, MEDARDO, UHR REMOVAL GALLBLADDER 11/2017 TONSILLECTOMY HX 1960's TOOTH EXTRACTION SOCIAL HISTORY Social History Tobacco Use Smoking status: Never Smokeless tobacco: Never Vaping Use Vaping status: Never Used Substance Use Topics Alcohol use: No Drug use: No FAMILY HISTORY Problem Relation Age of Onset Cancer Father lung Cancer Mother kidney, bone other (myocardial infarction) Sister Colon Cancer No Family History ALLERGIES: ALLERGIES Allergen Reactions Avelox [Moxifloxaci* Hives MEDICATIONS: apixaban (ELIQUIS) 5 mg tab(s) Take 5 mg by mouth two times a day. flash glucose scanning reader (Bolt HR CASSANDRA 2 READER) metFORMIN ER (GLUCOPHAGE XR) 500 mg 24 hr tablet Take 3 tablets by mouth once daily. Patient may take 2 pills with breakfast and one with dinner dulaglutide (TRULICITY) 1.5 mg/0.5 mL pen injector Inject 1.5 mg subcutaneously one time a week. CPAP Please lower PAP to 15/11 cmH2O. Please send us 2 week download at new pressure. Inhalational Spacing Device (BREATHERITE VALVED MDI SPACER) BREATHERITE VALVED MDI CHAMBER [employer] SUP[employer]IES [phone] Corinna London CPAP Increase bilevel to 22/18 cmH2O with backup rate of 12 BPM. Also please refit patient's dreamwear FFM - the headgear/tubing is likely one size too small and thus pulling up on nose through the night. DME = [facility] carvedilol (COREG) 6.25 mg tablet Take 3.125 mg by mouth twice daily with meals. furosemide (LASIX) 20 mg tablet Take 20 mg by mouth once daily. capsaicin (ZOSTRIX) 0.025 % cream Apply to affected area three times daily. Cyanocobalamin 1,000 mcg subl Dissolve 1 tablet under the tongue once daily. CPAP Please adjust bilevel to 17/13 cmH2O and turn off backup rate. Please provide download in 2-3 weeks. Please fit with Minimus Spinewear full face mask (under nose - med frame, large cushion). ADVAIR DISKUS 500-50 mcg/dose dsdv INHALE ONE PUFF INTO THE LUNGS TWICE DAILY potassium citrate ER (UROCIT-K) 5 mEq (540 mg) TbER Take 1 tablet by mouth once daily. EASY TOUCH 31 gauge x 5/16 1 Each by INJECTION(UNSPECIFIED PARENTERAL ROUTES) route five times daily. aspirin, enteric coated (ASPIRIN, ENTERIC COATED) 81 mg EC tablet Take 1 tablet by mouth once daily. ascorbic acid, vitamin C, (VITAMIN C) 500 mg tablet Take 500 mg by mouth once daily. Fluticasone Propionate (FLOVENT DISKUS) 100 mcg/actuation Inhale 1 Puff as instructed twice daily. After Advair tamsulosin ER (FLOMAX) 0.4 mg Take 0.4 mg by mouth once daily. albuterol HFA (PROVENTIL HFA, VENTOLIN HFA) 90 mcg/actuation inhaler Inhale 2 Puffs as instructed every 4 hours as needed for Wheezing/Shortness of Breath. alpha lipoic acid 200 mg cap Take 200 mg by mouth once daily. magnesium oxide 400 mg magnesium tab Take 400 mg by mouth twice daily. CPAP Change bilevel setting to 20/15 cmH2O with BR 16 BPM. Please fax us download in 2 weeks. buPROPion XL (WELLBUTRIN XL) 150 mg 24 hr tablet Take 150 mg by mouth once daily. montelukast (SINGULAIR) 10 mg tablet Take 10 mg by mouth daily at bedtime. atorvastatin (LIPITOR) 20 mg tablet Take 20 mg by mouth once daily. multivitamin ORAL tablet Take one(1) tablet daily. REVIEW OF SYSTEMS: GENERAL: No weight loss, malaise or fevers RESPIRATORY: See HPI CARDIOVASCULAR: See HPI GI: No hematochezia or melena PSYCH: Calm and cooperative. PHYSICAL EXAMINATION: There were no vitals taken for this visit. General Appearance: Well developed, well nourished, and No acute distress Lungs: CTAB; No crackles, rales, rhonchi or wheezes; Respiratory effort: normal Heart: Regular rate & rhythm; No murmur: S1, S2; Edema: None; PT/Radial pulses: 2+ Skin: Warm, Dry, and Moist Musculoskeletal: No deformities; Steady gait Neurologic/Psychiatric: Oriented to time, place, person & situation;No gross focal neurologic deficits CARDIOVASCULAR MEDICINE TESTING: IMPRESSION: Mr. Grubbs is a 73 year old male PMH of asthma, atrial fibrillation (s/p cardioversion 2015; sotolol & eliquis), CHF s/p INCINERATOR ATTENDANT-D 04/11/2011, [place], long QT, COPD, depression, nonobstructive CAD, HLD, HTN,obesity (BMI 45.5) status post gastric sleeve 2020 (lost ~100 lbs), diabetes and ARMANDO on CPAP. He had a cryo PVAI 06/30/2023. PLAN AND RECOMMENDATIONS: Persistent atrial fibrillation/atypical atrial flutter - s/p Cryoablation PVI in 06/2023 - He was found to be in AF/AFL during his remote device check on 01/06 and advised to come in for anDCC. - He has not missed any doses of Eliquis within the past three weeks - Patient was successfully converted to SR with ATP hence cardioversion were canceled. - Proper device functioning on device check today - He will keep follow-up as scheduled with Dr. Bravo to discuss further management including possibility of a redo ablation with AF recurrences. Obstructive sleep apnea - Compliant with CPAP use Arturo Cobos APRN.CNP CONTACT INFORMATION: Dr. Wali Bravo To schedule an appointment please call [phone] Other questions or concerns please his office at [phone] documented in this encounterK[facility]12-03-2024 NoteHNO ID: [id number] Author: CHARITY MYERS RN Service: ? Author Type: Registered Nurse Type: Progress Notes Filed: 01/09/2024 15:43 Note Text: THE FOLLOWING WAS EVALUATED Motivation To Learn: Interested Family/Significant Other Support: Unable to assess - Family not present Cognitive Ability: Alert and oriented Patient Learns Best By: Individual Instruction The Following Influencing Factors Were Barriers To This Education Session: None The Following Physical Limitations Were Barriers To This Education Session: None Instruction Provided To: Patient and Spouse Procedure: Cardioversion Pre-procedure information reviewed: Patient ID verified Procedure verified Physician verified Explanation of procedure Sedation level during procedure MD medication instructions from EP lab request: None Travel instructions/restrictions Scheduling information Possible same day discharge versus overnight hospital stay Check out time Family waiting area Physician contact with family after procedure Post Procedure Expectations reviewed: Inpatient hospital stay Post procedure antiarrhythmics and anticoagulation will be discussed with Physician, nurse practitioner or Physician personnel security assistant upon discharge Instructions for transmitting EKG to [facility] 3 month follow up instructions Contact number for information and questions Patient Evaluation: Verbalizes understanding Follow Up Plan: Follow up as directed by MD. Supplemental Material Given: Written Material Patient is aware he needs a garbage truck driver home. Instructed By Charity Myers RN, RN. In Department of CARDIOLOGY.[facility]12-03-2024 History of Present illness Narrative* Charity Myers, IDALIA - 01/09/2024 3:42 PM EST THE FOLLOWING WAS EVALUATED Motivation To Learn: Interested Family/Significant Other Support: Unable to assess - Family not present Cognitive Ability: Alert and oriented Patient Learns Best By: Individual Instruction The Following Influencing Factors Were Barriers To This Education Session: None The Following Physical Limitations Were Barriers To This Education Session: None Instruction Provided To: Patient and Spouse Procedure: Cardioversion Pre-procedure information reviewed: Patient ID verified Procedure verified Physician verified Explanation of procedure Sedation level during procedure MD medication instructions from EP lab request: None Travel instructions/restrictions Scheduling information Possible same day discharge versus overnight hospital stay Check out time Family waiting area Physician contact with family after procedure Post Procedure Expectations reviewed: Inpatient hospital stay Post procedure antiarrhythmics and anticoagulation will be discussed with Physician, nurse practitioner or Physician personnel security assistant upon discharge Instructions for transmitting EKG to [facility] 3 month follow up instructions Contact number for information and questions Patient Evaluation: Verbalizes understanding Follow Up Plan: Follow up as directed by MD. Supplemental Material Given: Written Material Patient is aware he needs a garbage truck driver home. Instructed By Charity Myers, RN, RN. In Department of CARDIOLOGY. documented [facility] NoteEducation (EPSMN) LC GRUBBS ([id number]) 1950 M Date Time Provider Department 01/09/24 WALI BRAVO EPSMN Reason for Visit: Patient Education [91] Cmt: [facility] During your visit today, we recorded the following information about you: Allergies As of Date: 01/09/2024 Noted Allergy Reaction AVELOX (MOXIFLOXACIN HCL) 04/17/2012 4 - Hives Date Reviewed: 11/06/2023 Reviewed by: Zulma Cronin LPN - Fully Assessed Prescriptions as of 01/09/2024 - apixaban (ELIQUIS) 5 mg tab(s) Take 5 mg by mouth two times a day. - flash glucose scanning reader (Bolt HR CASSANDRA 2 READER) - metFORMIN ER (GLUCOPHAGE XR) 500 mg 24 hr tablet Take 3 tablets by mouth once daily. Patient may take 2 pills with breakfast and one with dinner - dulaglutide (TRULICITY) 1.5 mg/0.5 mL pen injector Inject 1.5 mg subcutaneously one time a week. - CPAP Please lower PAP to 15/11 cmH2O. Please send us 2 week download at new pressure. - Inhalational Spacing Device (BREATHERITE VALVED MDI SPACER) BREATHERITE VALVED MDI CHAMBER [employer] SUPPLIES [phone] Corinna Jonatan Surya - CPAP Increase bilevel to 22/18 cmH2O with backup rate of 12 BPM. Also please refit patient's dreamwear FFM - the headgear/tubing is likely one size too small and thus pulling up on nose through the night. DME = [facility] - carvedilol (COREG) 6.25 mg tablet Take 3.125 mg by mouth twice daily with meals. - furosemide (LASIX) 20 mg tablet Take 20 mg by mouth once daily. - capsaicin (ZOSTRIX) 0.025 % cream Apply to affected area three times daily. - Cyanocobalamin 1,000 mcg subl Dissolve 1 tablet under the tongue once daily. - CPAP Please adjust bilevel to 17/13 cmH2O and turn off backup rate. Please provide download in 2-3 weeks. Please fit with Minimus Spinewear full face mask (under nose - med frame, large cushion). - ADVAIR DISKUS 500-50 mcg/dose dsdv INHALE ONE PUFF INTO THE LUNGS TWICE DAILY - potassium citrate ER (UROCIT-K) 5 mEq (540 mg) TbER Take 1 tablet by mouth once daily. - EASY TOUCH 31 gauge x 5/16 1 Each by INJECTION(UNSPECIFIED PARENTERAL ROUTES) route five times daily. - aspirin, enteric coated (ASPIRIN, ENTERIC COATED) 81 mg EC tablet Take 1 tablet by mouth once daily. - ascorbic acid, vitamin C, (VITAMIN C) 500 mg tablet Take 500 mg by mouth once daily. - Fluticasone Propionate (FLOVENT DISKUS) 100 mcg/actuation Inhale 1 Puff as instructed twice daily. After Advair - tamsulosin ER (FLOMAX) 0.4 mg Take 0.4 mg by mouth once daily. - albuterol HFA (PROVENTIL HFA, VENTOLIN HFA) 90 mcg/actuation inhaler Inhale 2 Puffs as instructed every 4 hours as needed for Wheezing/Shortness of Breath. - alpha lipoic acid 200 mg cap Take 200 mg by mouth once daily. - magnesium oxide 400 mg magnesium tab Take 400 mg by mouth twice daily. - CPAP Change bilevel setting to 20/15 cmH2O with BR 16 BPM. Please fax us download in 2 weeks. - buPROPion XL (WELLBUTRIN XL) 150 mg 24 hr tablet Take 150 mg by mouth once daily. - montelukast (SINGULAIR) 10 mg tablet Take 10 mg by mouth daily at bedtime. - atorvastatin (LIPITOR) 20 mg tablet Take 20 mg by mouth once daily. - multivitamin ORAL tablet Take one(1) tablet daily. Encounter Status:Closed by CHARITY MYERS RN on 01/09/24[facility]11-06-2024 Telephone encounter Note* Telephone Encounter - Misa Freitas RN - 12/13/2023 2:28 PM EST OPD noted to be scheduled for 01-10-24. Scheduled for DCC as well. [facility] Miscellaneous Notes* Telephone Encounter - Misa Freitas RN - 12/13/2023 2:28 PM EST OPD noted to be scheduled for 01-10-24. Scheduled for DCC as well. * Telephone Encounter - Misa Freitas RN - 2023 6:11 AM EST Please call patient to schedule for EKG & OPD so that we may schedule for DCC the same day. * Telephone Encounter - Misa Freitas RN - 2023 6:11 AM EST ----- Message from Wali Bravo MD sent at 12/08/2023 7:00 PM EDT ----- EPS LAB PROCEDURE REQUEST: Cardioversion &/or DANNY PATIENT: Lc Grubbs Request Placed by: Wali Bravo MD Requesting Physician: Wali Bravo MD Procedure Physician: 1st available Date of Last H&P? 10/02/23 Procedure Requested: DCC Indications / Dx for procedure: Atrial Tachycardia Anticoagulation Status: Eliquis (apixaban) Type of bed needed: 2 HR RECOVERY IN I/O ROOM DCCV please. Tx. Wali Bravo MD December 08, 2023 7:01 PM documented in this encounterK[facility]11-05-[facility]24 Telephone encounter Note * Telephone Encounter - Misa Freitas RN - 2023 6:11 AM EST Please call patient to schedule for EKG & OPD so that we may schedule for DCC the same day. [facility]11-05-[facility] Telephone encounter Note* Telephone Encounter - Misa Freitas RN - 2023 6:11 AM EST ----- Message from Wali Bravo MD sent at 12/08/2023 7:00 PM EDT ----- EPS LAB PROCEDURE REQUEST: Cardioversion &/or DANNY PATIENT: Lc Grubbs Request Placed by: Wali Bravo MD Requesting Physician: Wali Bravo MD Procedure Physician: 1st available Date of Last H&P? 10/02/23 Procedure Requested: DCC Indications / Dx for procedure: Atrial Tachycardia Anticoagulation Status: Eliquis (apixaban) Type of bed needed: 2 HR RECOVERY IN I/O ROOM DCCV please. Tx. Wali Bravo MD December 08, 2023 7:01 PM [facility]10-24-[facility] Telephone encounter Note* Telephone Encounter - Suzie Blackwell RN - 11/30/2023 10:45 AM EDT Attempted to speak with patient regarding AFL reoccurrence. Left VM, requested he send a manual transmission early next week for re-assessment. [facility]10-[facility] Miscellaneous Notes* Telephone Encounter - Suzie Blackwell RN - 11/30/2023 10:45 AM EDT Attempted to speak with patient regarding AFL reoccurrence. Left VM, requested he send a manual transmission early next week for re-assessment. documented in this encounterK[facility]10-09-2024 Telephone encounter Note * Telephone Encounter - Reji Scott RN - 11/15/2023 3:38 PM EDT Called and answered patient's questions [facility]10-09-2024 Miscellaneous Notes* Telephone Encounter - Reji Scott RN - 11/15/2023 3:38 PM EDT Called and answered patient's questions * Telephone Encounter - Nano Jj - 11/15/2023 2:50 PM EDT Pt have questions regarding remote enrollment, pt states [facility] is receiving transmissions. Pt can be reached at [phone] documented in this encounterK[facility]10-09-2024 Telephone encounter Note * Telephone Encounter - Nano Jj - 11/15/2023 2:50 PM EDT Pt have questions regarding remote enrollment, pt states [facility] is receiving transmissions. Pt can be reached at [phone] [facility]09-30-2024 History of Present illness Narrative* Zeferino Thorpe APRN.TABBY, JAJA - 11/06/2023 2:00 PM EDT Patient referred by: No referring provider defined for this encounter. No chief complaint on file. HPI: This is a post operative visit. Mr. Grubbs is s/p exploratory laparotomy, ventral hernia repair,and omentectomy on 10/[address] Joyce for incarcerated ventral hernia. He was discharged home onPOD 2. Mr. Grubbs is recovering well at home. Initial pain which has resolved. Tolerating regular diet. Bowel movements at his normal. Ambulating. Denies nausea, vomiting, shortness of breath, CP, fever or chills PAST MEDICAL HISTORY Diagnosis Date Asthma Atrial fibrillation (HCC) S/P successful cardioversion in 2015; maintained on Sotolol and Eliquis Cardiac defibrillator in place April 2011 CHF (congestive heart failure) (HCC) Class III Depression Diabetes mellitus (HCC) H/O bariatric surgery 08/2019 Hyperlipidemia Hypertension Kidney stone Morbid obesity (HCC) Non-ischemic cardiomyopathy (HCC) 2011 Biventricular pacing device/defibrillator placed; EF recovered to 65% in 2016 ARMANDO (obstructive sleep apnea) CPAP PAST SURGICAL HISTORY Procedure Laterality Date ABLATION A-FIB BY PVI 06/30/2023 CARDIAC CATH 07/2016 done for positive stress test; Mild CAD of LAD, Circumflex, and RCA; EF 40-45% CARDIOVERSION 2016 Successful cardioversion of atrial fibrillation COLONOSCOPY maybe 10 yrs ago DEFIBRILLATOR SURGERY 12/20/2018 EGD 09/03/2019 GASTRIC WALL TISSUE WITH MILD REACTIVE GASTROPATHY EGD EUS 01/07/2020 ELBOW 03/04/2014 reconstructed elbow LAP SLEEVE GASTRECTOMY 09/03/2019 hernia repair, lysis of adhesions and intraoperative EGD LIVER BIOPSY 07/01/2020 PACEMAKER IMPLANT april [address] [facility] REMOVAL GALLBLADDER 11/2017 TONSILLECTOMY HX 1960's TOOTH EXTRACTION FAMILY HISTORY Problem Relation Age of Onset Cancer Father lung Cancer Mother kidney, bone other (myocardial infarction) Sister Colon Cancer No Family History Social History Tobacco Use Smoking status: Never Smokeless tobacco: Never Vaping Use Vaping status: Never Used Substance Use Topics Alcohol use: No Drug use: No Current Outpatient Medications Medication Sig apixaban (ELIQUIS) 5 mg tab(s) Take 5 mg by mouth two times a day. flash glucose scanning reader (FREESTYLE CASSANDRA 2 READER) metFORMIN ER (GLUCOPHAGE XR) 500 mg 24 hr tablet Take 3 tablets by mouth once daily. Patient may take 2 pills with breakfast and one with dinner dulaglutide (TRULICITY) 1.5 mg/0.5 mL pen injector Inject 1.5 mg subcutaneously one time a week. CPAP Please lower PAP to 15/11 cmH2O. Please send us 2 week download at new pressure. Inhalational Spacing Device (BREATHERITE VALVED MDI SPACER) BREATHERITE VALVED MDI CHAMBER [employer] SUPPLIES [phone] Corinna London CPAP Increase bilevel to 22/18 cmH2O with backup rate of 12 BPM. Also please refit patient's dreamwear FFM - the headgear/tubing is likely one size too small and thus pulling up on nose through the night. DME = [facility] carvedilol (COREG) 6.25 mg tablet Take 3.125 mg by mouth twice daily with meals. furosemide (LASIX) 20 mg tablet Take 20 mg by mouth once daily. capsaicin (ZOSTRIX) 0.025 % cream Apply to affected area three times daily. Cyanocobalamin 1,000 mcg subl Dissolve 1 tablet under the tongue once daily. CPAP Please adjust bilevel to 17/13 cmH2O and turn off backup rate. Please provide download in 2-3 weeks. Please fit with [employer] full face mask (under nose - med frame, large cushion). ADVAIR DISKUS 500-50 mcg/dose dsdv INHALE ONE PUFF INTO THE LUNGS TWICE DAILY potassium citrate ER (UROCIT-K) 5 mEq (540 mg) TbER Take 1 tablet by mouth once daily. EASY TOUCH 31 gauge x 5/16 1 Each by INJECTION(UNSPECIFIED PARENTERAL ROUTES) route five times daily. aspirin, enteric coated (ASPIRIN, ENTERIC COATED) 81 mg EC tablet Take 1 tablet by mouth once daily. ascorbic acid, vitamin C, (VITAMIN C) 500 mg tablet Take 500 mg by mouth once daily. Fluticasone Propionate (FLOVENT DISKUS) 100 mcg/actuation Inhale 1 Puff as instructed twice daily. After Advair tamsulosin ER (FLOMAX) 0.4 mg Take 0.4 mg by mouth once daily. albuterol HFA (PROVENTIL HFA, VENTOLIN HFA) 90 mcg/actuation inhaler Inhale 2 Puffs as instructed every 4 hours as needed for Wheezing/Shortness of Breath. alpha lipoic acid 200 mg cap Take 200 mg by mouth once daily. magnesium oxide 400 mg magnesium tab Take 400 mg by mouth twice daily. CPAP Change bilevel setting to 20/15 cmH2O with BR 16 BPM. Please fax us download in 2 weeks. buPROPion XL (WELLBUTRIN XL) 150 mg 24 hr tablet Take 150 mg by mouth once daily. montelukast (SINGULAIR) 10 mg tablet Take 10 mg by mouth daily at bedtime. atorvastatin (LIPITOR) 20 mg tablet Take 20 mg by mouth once daily. multivitamin ORAL tablet Take one(1) tablet daily. No current facility-administered medications for this visit. ALLERGIES Allergen Reactions Avelox [Moxifloxaci* Hives REVIEW OF SYSTEMS: GENERAL: No weight loss, malaise or fevers GI: Negative for abdominal pain, nausea , vomiting, diarrhea, constipation, and signs of jaundice Positive for none PHYSICAL EXAM: There were no vitals taken for this visit. GENERAL APPEARANCE: Well appearing, alert, in no acute distress, well-hydrated, well nourished.. ABDOMEN: Normal abdominal exam, Abdomen soft, non-tender. Bowel sounds normal. No masses, organomegaly. Midline abdominal incision with jenny, mild erythema around staple insertion, no drainage. NEURO: Alert, oriented x3, no asterixis, speech clear and articulate, and WEST DATA: Diagnostic tests reviewed for today's visit: Pathology report reviewed FINAL DIAGNOSIS A. Omentum, resection: - Benign adipose tissue with focally congested and dilated vessels. B. Submitted as (hernia sac), resection/hernia repair: - Benign fibroadipose tissue partially covered by mesothelium, consistent with hernia sac. Greater than 50% of the direct patient contact time was spent in counseling or coordination of care. ASSESSMENT / PLAN Mr. Grubbs presents to office today for post operative follow up s/p exploratory laparotomy, ventral hernia repair, and omentectomy and staple removal -[place] removed without difficulty, steri-strips applied. Tolerated procedure well - recovering as expected - reviewed post operative discharge instructions including but not limited to diet, activity, restrictions and incisional care - follow up surgery clinic prn I spent a total of 20 minutes on the date of the service which included preparing to see the patient, [id number] patient care, completing clinical documentation, obtaining and/or reviewing separately obtained history, performing a medically appropriate examination, and counseling and educating the patient/family/caregiver. Zeferino Thorpe APRN.JAJA MCNAIR documented in this encounterK[facility]09-30-2024 NoteHNO ID: [id number] Author: ZEFERINO THORPE APRN.CNP, DNP Service: ? Author Type: Nurse Practitioner Type: Progress Notes Filed: 11/06/2023 16:52 Note Text: Patient referred by: No referring provider defined for this encounter. No chief complaint on file. HPI: This is a post operative visit. Mr. Grubbs is s/p exploratory laparotomy, ventral hernia repair, and omentectomy on 10/[address] Joyce for incarcerated ventral hernia. He was discharged home on POD 2. Mr. Grubbs is recovering well at home. Initial pain which has resolved. Tolerating regular diet. Bowel movements at his normal. Ambulating. Denies nausea, vomiting, shortness of breath, CP, fever or chills PAST MEDICAL HISTORY Diagnosis Date Asthma Atrial fibrillation (HCC) S/P successful cardioversion in 2015; maintained on Sotolol and Eliquis Cardiac defibrillator in place April 2011 CHF (congestive heart failure) ([facility]) Class III Depression Diabetes mellitus (HCC) H/O bariatric surgery 08/2019 Hyperlipidemia Hypertension Kidney stone Morbid obesity (HCC) Non-ischemic cardiomyopathy (HCC) 2011 Biventricular pacing device/defibrillator placed; EF recovered to 65% in 2017 ARMANDO (obstructive sleep apnea) CPAP PAST SURGICAL HISTORY Procedure Laterality Date ABLATION A-FIB BY PVI 06/30/2023 CARDIAC CATH 07/2016 done for positive stress test; Mild CAD of LAD, Circumflex, and RCA; EF 40-45% CARDIOVERSION 2015 Successful cardioversion of atrial fibrillation COLONOSCOPY maybe 10 yrs ago DEFIBRILLATOR SURGERY 12/20/2018 EGD 09/03/2019 GASTRIC WALL TISSUE WITH MILD REACTIVE GASTROPATHY EGD EUS 01/07/2020 ELBOW 03/04/2014 reconstructed elbow LAP SLEEVE GASTRECTOMY 09/03/2019 hernia repair, lysis of adhesions and intraoperative EGD LIVER BIOPSY 07/01/2020 PACEMAKER IMPLANT april [address] [facility] REMOVAL GALLBLADDER 11/2017 TONSILLECTOMY HX 1960's TOOTH EXTRACTION FAMILY HISTORY Problem Relation Age of Onset Cancer Father lung Cancer Mother kidney, bone other (myocardial infarction) Sister Colon Cancer No Family History Social History Tobacco Use Smoking status: Never Smokeless tobacco: Never Vaping Use Vaping status: Never Used Substance Use Topics Alcohol use: No Drug use: No Current Outpatient Medications Medication Sig apixaban (ELIQUIS) 5 mg tab(s) Take 5 mg by mouth two times a day. flash glucose scanning reader (Bolt HR CASSANDRA 2 READER) metFORMIN ER (GLUCOPHAGE XR) 500 mg 24 hr tablet Take 3 tablets by mouth once daily. Patient may take 2 pills with breakfast and one with dinner dulaglutide (TRULICITY) 1.5 mg/0.5 mL pen injector Inject 1.5 mg subcutaneously one time a week. CPAP Please lower PAP to 15/11 cmH2O. Please send us 2 week download at new pressure. 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 Also please refit patient's dreamwear FFM - the headgear/tubing is likely one size too small and thus pulling up on nose through the night. DME = [facility] carvedilol (COREG) 6.25 mg tablet Take 3.125 mg by mouth twice daily with meals. furosemide (LASIX) 20 mg tablet Take 20 mg by mouth once daily. capsaicin (ZOSTRIX) 0.025 % cream Apply to affected area three times daily. Cyanocobalamin 1,000 mcg subl Dissolve 1 tablet under the tongue once daily. CPAP Please adjust bilevel to 17/13 cmH2O and turn off backup rate. Please provide download in 2-3 weeks. Please fit with Minimus Spinewear full face mask (under nose - med frame, large cushion). ADVAIR DISKUS 500-50 mcg/dose dsdv INHALE ONE PUFF INTO THE LUNGS TWICE DAILY potassium citrate ER (UROCIT-K) 5 mEq (540 mg) TbER Take 1 tablet by mouth once daily. EASY TOUCH 31 gauge x 5/16 1 Each by INJECTION(UNSPECIFIED PARENTERAL ROUTES) route five times daily. aspirin, enteric coated (ASPIRIN, ENTERIC COATED) 81 mg EC tablet Take 1 tablet by mouth once daily. ascorbic acid, vitamin C, (VITAMIN C) 500 mg tablet Take 500 mg by mouth once daily. Fluticasone Propionate (FLOVENT DISKUS) 100 mcg/actuation Inhale 1 Puff as instructed twice daily. After Advair tamsulosin ER (FLOMAX) 0.4 mg Take 0.4 mg by mouth once daily. albuterol HFA (PROVENTIL HFA, VENTOLIN HFA) 90 mcg/actuation inhaler Inhale 2 Puffs as instructed every 4 hours as needed for Wheezing/Shortness of Breath. alpha lipoic acid 200 mg cap Take 200 mg by mouth once daily. magnesium oxide 400 mg magnesium tab Take 400 mg by mouth twice daily. CPAP Change bilevel setting to 20/15 cmH2O with BR 16 BPM. Please fax us download in 2 weeks. buPROPion XL (WELLBUTRIN XL) 150 mg 24 hr tablet Take 150 mg by mouth once daily. montelukast (SINGULAIR) 10 mg tablet Take 10 mg by mouth daily at bedtime. atorvastatin (LIPITOR) 20 mg tablet Take 20 mg by mouth (more content not included)...[facility]09-11-2024 NoteHNO ID: [id number] Author: TYLOR GARCIA RN Service: Care Management Author Type: Registered Nurse Type: Care Mgt Progress Note Filed: 10/18/2023 15:40 Note Text: CARE MANAGEMENT DISCHARGE NOTE SERVICE DATE: October 18, 2023 SERVICE TIME: 3:38 PM Admission Date: 10/17/2023 LOS: 1 day Discharge Arrangement Discharge Arrangement: Home with Self Care Caregiver Assessment Caregiver is ready, willing and able to meet the patient's needs as recommended by the inter-professional team: Yes Transportation Arrangements Transportation Arrangements: Car Handoff Communication: Handoff to: Other Caregiver Other Caregiver Name/Phone: Bedside RN to provide discharge instructions/ Patient's community health director Fernanda Cox ([phone]) Discharge today. Discharge orders complete. Plan is for patient to return home at discharge. Patient states his spouse is willing to assist as needed and will provide discharge transportation. At this time, no transitional/discharge planning needs identified. SIGNATURE: Tylor Garcia RN PATIENT NAME: Lc Grubbs DATE: October 18, 2023 TIME: 3:38 PM [id number] NoteHNO ID: [id number] Author: MIGUEL CESPEDES MD Service: General Surgery Author Type: Resident Type: Progress Notes Filed: 10/18/2023 11:49 Note Text: Attestation signed by Miguel Cespedes MD at 10/18/2023 11:49 AM I personally saw and examined the patient on 10/18/2023. I reviewed the resident?s note. I agree with the resident?s assessment and plan unless otherwise noted Miguel Cespedes MD 11:49 AM 10/18/23 Please Note: This office note has been created using Omnistream, a speech recognition software program, and may contain errors including punctuation, grammar, spelling, gender, and inappropriate words or phrases that pertain to the sytem. Emergency General Surgery Progress Note SERVICE DATE: October 18, 2023 Emergency General Surgery Service Pager: For questions or concerns Mon-Fri 6a-5p please page [phone]. After 5pm and on Weekends and Holidays, please page [phone] if in ICU or [phone] if on RNF. SUBJECTIVE: NAEON. States doing well this morning. Pain well controlled. Tolerating CLD w/o n/v. Having flatus no BM. Ambulating w/o issue. Tolerating diet DIET GASTRO INTESTINAL Nausea No Emesis No Flatus Yes Bowel movement No Pain Controlled Yes Ambulating Yes OBJECTIVE: Vitals: Temp (24hrs), Av.9 ?C (98.4 ?F), Min:36.2 ?C (97.2 ?F), Max:37.8 ?C (100 ?F) BP 152/87 Pulse 78 Temp 37.1 ?C (98.8 ?F) (Oral) Resp 18 Ht 172.7 cm (5' 8) Wt 127 kg (280 lb) SpO2 95% BMI 42.57 kg/m? O2 Therapy: Room Air IANDO: Date 10/17/23699 - 10/18/23 0659 10/18/23 07 - 10/19/23 0659 Shift 8393-2644 3907-2815 [id number] 24 Hour Total 2099-5921 1296-6386 8552-2732 24 Hour Total INTAKE PO 240 400 640 PO 240 400 640 IV 1800 1000 2800 Volume (mL) (lactated ringers iv infusion) 800 800 Volume (mL) (lactated ringers iv infusion) 400 400 Volume (mL) (NaCl 0.9% iv infusion) 600 600 Volume (mL) (lactated ringers iv infusion) 1000 1000 Shift Total 1800 3320 625 7212 OUTPUT Urine 200 200 400 800 Void (ml) 200 200 400 800 Shift Total 200 200 400 800 Weight (kg) 127 127 127 127 127 127 127 127 MEDICATIONS Current Facility-Administered Medications Medication Dose Route Frequency atorvastatin 20 mg tab(s) (LIPITOR) 20 mg ORAL DAILY carvedilol 3.125 mg tab(s) (COREG) 3.125 mg ORAL BID w MEALS albuterol HFA 90 mcg/actuation 2 Puff (PROVENTIL HFA, VENTOLIN HFA) 2 Puff INHALATION q 4 H PRN enoxaparin 40 mg injection (LOVENOX) 40 mg SUBCUTANEOUS DAILY NaCl 0.9% iv flush bag 20 mL INTRAVENOUS PRN ondansetron 4 mg tab(s) (ZOFRAN) 4 mg ORAL q 6 H PRN Or ondansetron (PF) 4 mg injection (ZOFRAN) 4 mg INTRAVENOUS q 6 H PRN acetaminophen 975 mg tab(s) (TYLENOL) 975 mg ORAL q 6 H morphine 3 mg injection 3 mg INTRAVENOUS q 4 H PRN oxyCODONE IR 5-10 mg tab(s) (ROXICODONE) 5-10 mg ORAL q 6 H PRN mometasone-formoterol 100-5 mcg/actuation 2 Puff inhaler (DULERA) 2 Puff INHALATION BID Labs: Recent Labs 10/18/23 0426 10/16/23 2132 NA 136 141 K 4.0 4.3 CHLOR 103 105 CO2 25 24 BUN 23 25* CREAT 1.29* 1.54* GLUC 138* 188* ANION 8 12 CA 8.7 9.8 ALB -- 4.4 AST -- 18 ALT -- 16 ALKPHOS -- 68 TBILI -- 4.2* WBC 9.19 8.89 HB 12.9* 14.9 HCT 40.2 45.7 PLT 126* 132* LACT -- 2.0 Physical Exam: GENERAL: No distress, Alert NEURO: AANDOx3, CN II-XII grossly intact HEENT: normocephalic, atraumatic LUNGS: Unlabored breathing, equal chest rise bilaterally CARDIAC: Regular rate, warm and well perfused distal extremities ABDOMEN: Soft, minimally tender TTP, minimally distended, bandage on midline incision with no strikethrough EXTREMITIES: WEST, No deformities, No edema SKIN: Skin color, texture, turgor normal, No rashes or lesions ASSESSMENT AND PLAN: Assessment Active Hospital Problems Diagnosis Date Noted Incarcerated ventral hernia 10/17/2023 Assessment: 72 year old male with a PMH of Asthma, Afib s/p Ablation (Eli), CHF, Depression, T2DM, HLD, HTN, Obesity (BMI 38), ARMANDO, s/p Lap Sleeve (2019), and Cholecystectomy who presented for incarcerated ventral hernia. Hospital Course/Operations/Procedures: 10/17/2023 Procedure(s): EXPLORATORY LAPAROTOMY with ventral hernia repair Plan: Incarcerated Ventral Hernia S/p exploratory laparotomy with ventral hernia repair and omentectomy 10/15 - tolerating CLD, progressed to GIS tolerating well this morning. - continue to monitor bowel function - encourage ambulation - pain and nausea meds - LVX for DVT ppx Anticipated Discharge Disposition: Home with Self Care Discussed with attending: Dr. Cespedes SIGNATURE: Smitha Crowder DO PATIENT NAME: Lc Grubbs DATE: October 18, 2023 TIME: 940 Pager: [phone] Emergency General Surgery Service Pager: For questions or co (more content not included)...[facility] 10-17-2023 NoteHNO ID: [id number] Author: TYLOR GARCIA RN Service: Care Management Author Type: Registered Nurse Type: Care Mgt Initial Assessment Filed: 10/17/2023 15:27 Note Text: CARE MANAGEMENT: ASSESSMENT AND DISCHARGE PLAN SERVICE DATE: October 17, 2023 SERVICE TIME: 3:20 PM PCP: Marciano Weaver MD (Confirmed with patient) Primary Contact: Extended Emergency Contact Information Primary Emergency Contact: Pati Grubbs Address: [address] [place] [address] Mobile Relation: Spouse Admission Status: Inpatient Insurance Provider: [employer] Discharge Planning requested by: Per Department Practice Potential Transition Plans Home Advance Directives Current Advance Directive: Health Care Power of Molyb[employer]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;Living Will In Chart: No Car Wash Supervisor Attempted to Assist with AD Completion: Yes Action: Education Provided Current Living Arrangements and Support Lives with: Spouse/significant other Type of Residence: Mobile Home Does the patient have to climb stairs at home?: Yes;stairs outside the home Support: Family members, Spouse/significant other How do you manage to accomplish the following: Independent: Ambulation;Bathe/Shower;Dress;Meals/Meal Prep;Going to the bathroom;Medication Management;Transportation to appointments/community Current Services/Equipment Current Post-Acute Service(s): DME Current DME Type: Glucometer device and supplies, Continuous Positive Airway Pressure Discharge Planning Patient Goal(s): Be able to go home, General wellness [place] of Choice Explained: [place] Given: No Reason Not Given: No placements necessary at this time. Will follow. Are you interested in bedside delivery of your medications? Yes Discharge Planning Participant(s): Patient;Family Caregiver Assessment: Caregiver is ready, willing and able to meet the patient's needs as recommended by the inter-professional team: Yes Name of Caregiver: Pati/ Spouse Transport at Discharge: Transportation Arrangements: Car; Patient's spouse will provide transportation at discharge. Needs Prior to Discharge: Needs Prior to Discharge: Pharmacy Bedside Delivery Post-Acute Discharge Plan: Chart reviewed. S/p exploratory laparotomy, ventral hernia repair, omentectomy. Spoke with patient and patient's sister Ivan at the bedside. Explained care management role. Patient resides at home with his spouse Pati. Mobile home with 3 steps to enter. At baseline patient is independent with mobility and personal care. On disability. Drives. Active with [employer]. Receives mobile meals and has an emergency response system in place. Patient's community health director Fernanda Cox notified of admission ([phone]). Plan is for patient to return home at discharge. Patient states his spouse is willing to assist as needed and will provide transportation at discharge. Will follow clinical course for transitional/discharge planning needs. SIGNATURE: Tylor Garcia RN PATIENT NAME: Lc Grubbs DATE: October 17, 2023 TIME: 3:20 PM CONTACT #: [id number] NoteHNO ID: [id number] Author: AILEEN HOGAN APRN.CRNA Service: Anesthesiology Author Type: Nurse Precast Molder Type: Anesthesia Procedure Notes Filed: 10/17/2023 08:10 Note Text: ANESTHESIOLOGY PROCEDURE NOTE Airway General Information Procedure Start Time/Medication Administration: 10/17/2023 7:44 AM Procedure End Time: 10/17/2023 7:44 AM Patient location during procedure: OR Timeout Performed Pre-procedure: timeout performed Consent Obtained: Yes Patient identity confirmed: arm band Staffing SRNA: Angela Mendes SRNA Performed by: LEDY Indications and Patient Condition Indications for airway management: anesthesia Preoxygenated: yes anesthesia circuit Patient position: sniffing and reverse Trendelenburg Method: rapid sequence Cricoid Pressure: Yes Final Airway Details Final airway type: endotracheal airway Final Endotracheal Airway: ETT Cuffed: yes Successful intubation technique: video laryngoscopy Devices used: [employer] Endotracheal tube insertion site: oral Blade: Simeon Blade size: #4 ETT size (mm): 8.0 Measured from: lips Measurement (cm): 24 Placement verified by: chest auscultation Cormack-Lehane Classification: grade I - full view of glottis Number of attempts at approach: 1 Failed airway: no Airway not difficult SIGNATURE: Aileen Hogan APRN.CRNA PATIENT NAME: Lc Grubbs DATE: October 17, 2023 TIME: 8:08 AM CSN: [id number]08-26-[facility] NoteHNO ID: [id number] Author: WALI BRAVO MD Service: ? Author Type: Physician Type: Progress Notes Filed: 10/02/2023 15:13 Note Text: [facility] Department of Cardiovascular Medicine SECTION OF CARDIAC PACING and ELECTROPHYSIOLOGY OUTPATIENT VISIT DATE October 02, 2023 OUTPATIENT VISIT TYPE NEW PRIMARY CARE PHYSICIAN: Marciano Weaver ([facility]) [address] [place] [address] REFERRING PHYSICIAN: SELF CHIEF COMPLAINT: INCINERATOR ATTENDANT-D AF HISTORY OF PRESENT ILLNESS/NURSING INTAKE NOTE: Mr. Grubbs is a 72 year old male who presents today for device and arrhythmia management. He had a PMH of asthma, atrial fibrillation (s/p cardioversion 2015; sotolol AND eliquis), CHF s/p INCINERATOR ATTENDANT-D 04/11/2011, VT, long QT, COPD, depression, nonobstructive CAD, HLD, HTN, obesity (BMI 45.5) status post bariatric surgery 2019, diabetes and ARMANDO on CPAP. He had a cryo PVAI 06/30/2023. They are here to re-establish care as their previous provider is no longer covered by their insurance. He has been doing well since his ablation. He reports his previous burden was around 80%. He denies chest pain, shortness of breath, orthopnea, cough, palpitations, PND, lightheadedness or syncope. He has never had any therapies from his device. CHADS VASC: 5 (age, CHF, CAD, HTN, DM) PAST MEDICAL HISTORY No date: Asthma No date: Atrial fibrillation (HCC) Comment: S/P successful cardioversion in 2015; maintained on Sotolol and Eliquis No date: Cardiac defibrillator in place Comment: April 2011 No date: CHF (congestive heart failure) (HCC) Comment: Class III No date: Depression No date: Diabetes mellitus (HCC) 08/2019: H/O bariatric surgery No date: Hyperlipidemia No date: Hypertension No date: Kidney stone No date: Morbid obesity (HCC) 2012: Non-ischemic cardiomyopathy (HCC) Comment: Biventricular pacing device/defibrillator placed; EF recovered to 65% in 2017 No date: ARMANDO (obstructive sleep apnea) Comment: CPAPPAST SURGICAL HISTORY 06/30/2023: ABLATION A-FIB BY PVI 07/2016: CARDIAC CATH Comment: done for positive stress test; Mild CAD of LAD, Circumflex, and RCA; EF 40-45% 2016: CARDIOVERSION Comment: Successful cardioversion of atrial fibrillation No date: COLONOSCOPY Comment: maybe 10 yrs ago 12/20/2018: DEFIBRILLATOR SURGERY Comment: April 2011 09/03/2019: EGD Comment: GASTRIC WALL TISSUE WITH MILD REACTIVE GASTROPATHY 01/07/2020: EGD EUS 03/04/2014: ELBOW Comment: reconstructed elbow 09/03/2019: LAP SLEEVE GASTRECTOMY Comment: hernia repair, lysis of adhesions and intraoperative EGD 07/01/2020: LIVER BIOPSY No date: PACEMAKER IMPLANT Comment: april 2011 - [facility] 11/2017: REMOVAL GALLBLADDER 1960's: TONSILLECTOMY HX No date: TOOTH EXTRACTION SOCIAL HISTORY Social History Tobacco Use Smoking status: Never Smokeless tobacco: Never Vaping Use Vaping status: Never Used Substance Use Topics Alcohol use: No Drug use: No FAMILY HISTORY Problem Relation Age of Onset Cancer Father lung Cancer Mother kidney, bone other (myocardial infarction) Sister Colon Cancer No Family History ALLERGIES: ALLERGIES Allergen Reactions Avelox [Moxifloxaci* Hives MEDICATIONS: apixaban (ELIQUIS) 5 mg tab(s) Take 5 mg by mouth two times a day. flash glucose scanning reader (FREESTYLE CASSANDRA 2 READER) metFORMIN ER (GLUCOPHAGE XR) 500 mg 24 hr tablet Take 3 tablets by mouth once daily. Patient may take 2 pills with breakfast and one with dinner dulaglutide (TRULICITY) 1.5 mg/0.5 mL pen injector Inject 1.5 mg subcutaneously one time a week. CPAP Please lower PAP to 15/11 cmH2O. Please send us 2 week download at new pressure. 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 Also please refit patient's dreamwear FFM - the headgear/tubing is likely one size too small and thus pulling up on nose through the night. DME = [facility] carvedilol (COREG) 6.25 mg tablet Take 3.125 mg by mouth twice daily with meals. furosemide (LASIX) 20 mg tablet Take 20 mg by mouth once daily. capsaicin (ZOSTRIX) 0.025 % cream Apply to affected area three times daily. Cyanocobalamin 1,000 mcg subl Dissolve 1 tablet under the tongue once daily. CPAP Please adjust bilevel to 17/13 cmH2O and turn off backup rate. Please provide download in 2-3 weeks. Please fit with dreamwear full face mask (under nose - med frame, large cushion). ADVAIR DISKUS 500-50 mcg/dose dsdv INHALE ONE PUFF INTO THE LUNGS TWICE DAILY potassium citrate ER (UROCIT-K) 5 mEq (540 mg) TbER Take 1 tablet by mouth once daily. EASY TOUCH 31 gauge x 5/16 1 Each by INJECTION(UNSPECIFIED PARENTERAL ROUTES) route five times daily. aspirin, (more content not included)...[facility]08-26-2024 History of Present illness Narrative* Wali Bravo MD - 10/02/2023 1:45 PM EDT Images from the original note were not included. [facility] Department of Cardiovascular Medicine SECTION OF CARDIAC PACING and ELECTROPHYSIOLOGY OUTPATIENT VISIT DATE October 02, 2023 OUTPATIENT VISIT TYPE NEW PRIMARY CARE PHYSICIAN: Marciano Weaver ([facility]) [address] [place] [phone] REFERRING PHYSICIAN: SELF CHIEF COMPLAINT: INCINERATOR ATTENDANT-D AF HISTORY OF PRESENT ILLNESS/NURSING INTAKE NOTE: Mr. Grubbs is a 72 year old male who presents today for device and arrhythmia management. He had a PMH of asthma, atrial fibrillation (s/p cardioversion 2015; sotolol & eliquis), CHF s/p INCINERATOR ATTENDANT-D 04/11/2011, VT, long QT, COPD, depression, nonobstructive CAD, HLD, HTN, obesity (BMI 45.5) status post bariatric surgery 2019, diabetes and ARMANDO on CPAP. He had a cryo PVAI 06/30/2023. They are here to re-establish care as their previous provider is no longer covered by their insurance. He has been doing well since his ablation. He reports his previous burden was around 80%. He denies chest pain, shortness of breath, orthopnea, cough, palpitations, PND, lightheadedness or syncope. He has never had any therapies from his device. CHADS VASC: 5 (age, CHF, CAD, HTN, DM) PAST MEDICAL HISTORY No date: Asthma No date: Atrial fibrillation (HCC) Comment: S/P successful cardioversion in 2016; maintained on Sotolol and Eliquis No date: Cardiac defibrillator in place Comment: April 2011 No date: CHF (congestive heart failure) ([facility]) Comment: Class III No date: Depression No date: Diabetes mellitus ([facility]) 08/2019: H/O bariatric surgery No date: Hyperlipidemia No date: Hypertension No date: Kidney stone No date: Morbid obesity ([facility]) 2011: Non-ischemic cardiomyopathy ([facility]) Comment: Biventricular pacing device/defibrillator placed; EF recovered to 65% in 2016 No date: ARMANDO (obstructive sleep apnea) Comment: CPAPPAST SURGICAL HISTORY 06/30/2023: ABLATION A-FIB BY PVI 07/2016: CARDIAC CATH Comment: done for positive stress test; Mild CAD of LAD, Circumflex, and RCA; EF 40-45% 2016: CARDIOVERSION Comment: Successful cardioversion of atrial fibrillation No date: COLONOSCOPY Comment: maybe 10 yrs ago 12/20/2018: DEFIBRILLATOR SURGERY Comment: April 2011 09/03/2019: EGD Comment: GASTRIC WALL TISSUE WITH MILD REACTIVE GASTROPATHY 01/07/2020: EGD EUS 03/04/2014: ELBOW Comment: reconstructed elbow 09/03/2019: LAP SLEEVE GASTRECTOMY Comment: hernia repair, lysis of adhesions and intraoperative EGD 07/01/2020: LIVER BIOPSY No date: PACEMAKER IMPLANT Comment: april [address] [facility] 11/2017: REMOVAL GALLBLADDER 1960's: TONSILLECTOMY HX No date: TOOTH EXTRACTION SOCIAL HISTORY Social History Tobacco Use Smoking status: Never Smokeless tobacco: Never Vaping Use Vaping status: Never Used Substance Use Topics Alcohol use: No Drug use: No FAMILY HISTORY Problem Relation Age of Onset Cancer Father lung Cancer Mother kidney, bone other (myocardial infarction) Sister Colon Cancer No Family History ALLERGIES: ALLERGIES Allergen Reactions Avelox [Moxifloxaci* Hives MEDICATIONS: apixaban (ELIQUIS) 5 mg tab(s) Take 5 mg by mouth two times a day. flash glucose scanning reader (FREESTYLE CASSANDRA 2 READER) metFORMIN ER (GLUCOPHAGE XR) 500 mg 24 hr tablet Take 3 tablets by mouth once daily. Patient may take 2 pills with breakfast and one with dinner dulaglutide (TRULICITY) 1.5 mg/0.5 mL pen injector Inject 1.5 mg subcutaneously one time a week. CPAP Please lower PAP to 15/11 cmH2O. Please send us 2 week download at new pressure. Inhalational Spacing Device (BREATHERITE VALVED MDI SPACER) BREATHERITE VALVED MDI CHAMBER [employer] [phone] Corinna London CPAP Increase bilevel to 22/18 cmH2O with backup rate of 12 BPM. Also please refit patient's dreamwear FFM - the headgear/tubing is likely one size too small and thus pulling up on nose through the night. DME = [facility] carvedilol (COREG) 6.25 mg tablet Take 3.125 mg by mouth twice daily with meals. furosemide (LASIX) 20 mg tablet Take 20 mg by mouth once daily. capsaicin (ZOSTRIX) 0.025 % cream Apply to affected area three times daily. Cyanocobalamin 1,000 mcg subl Dissolve 1 tablet under the tongue once daily. CPAP Please adjust bilevel to 17/13 cmH2O and turn off backup rate. Please provide download in 2-3 weeks. Please fit with [employer] full face mask (under nose - med frame, large cushion). ADVAIR DISKUS 500-50 mcg/dose dsdv INHALE ONE PUFF INTO THE LUNGS TWICE DAILY potassium citrate ER (UROCIT-K) 5 mEq (540 mg) TbER Take 1 tablet by mouth once daily. EASY TOUCH 31 gauge x 5/16 1 Each by INJECTION(UNSPECIFIED PARENTERAL ROUTES) route five times daily. aspirin, enteric coated (ASPIRIN, ENTERIC COATED) 81 mg EC tablet Take 1 tablet by mouth once daily. ascorbic acid, vitamin C, (VITAMIN C) 500 mg tablet Take 500 mg by mouth once daily. Fluticasone Propionate (FLOVENT DISKUS) 100 mcg/actuation Inhale 1 Puff as instructed twice daily. After Advair tamsulosin ER (FLOMAX) 0.4 mg Take 0.4 mg by mouth once daily. albuterol HFA (PROVENTIL HFA, VENTOLIN HFA) 90 mcg/actuation inhaler Inhale 2 Puffs as instructed every 4 hours as needed for Wheezing/Shortness of Breath. alpha lipoic acid 200 mg cap Take 200 mg by mouth once daily. magnesium oxide 400 mg magnesium tab Take 400 mg by mouth twice daily. CPAP Change bilevel setting to 20/15 cmH2O with BR 16 BPM. Please fax us download in 2 weeks. buPROPion XL (WELLBUTRIN XL) 150 mg 24 hr tablet Take 150 mg by mouth once daily. montelukast (SINGULAIR) 10 mg tablet Take 10 mg by mouth daily at bedtime. atorvastatin (LIPITOR) 20 mg tablet Take 20 mg by mouth once daily. multivitamin ORAL tablet Take one(1) tablet daily. REVIEW OF SYSTEMS: General, constitutional: Weight loss or gain- No, Fever or chills-No, Weakness- No, Trouble sleeping-No. Head, Eyes, Ears, Mouth: Headache, head injury-No, Glasses or contact lenses-No, Pain-No, Impaired vision-No, Decreased hearing-No, Ringing in ears-No, Nose bleeds-No, Dental difficulties-No, Bleeding gums-No, Dentures-No. Neck: Swelling-No, Pain-No, Stiffness-No. Respiratory: Cough-No, Spitting up blood-No, Shortness of breath-No, Wheezing or asthma-No. Musculoskeletal: Muscle or joint pain or stiffness-No, Joint swelling-No. Gastrointestinal: Difficulty swallowing-No, Heartburn-No, Change in bowel habits-No, Blood in stool, Dark black stools-No. Neurological/Psychiatric: Weakness, paralysis-No, Numbness-No, Tingling-No, Tremor-No, Nervousness or anxiety-No, Depressed mood-No, Memory loss-No. Skin: Rash-No, Itching-No. Hematological: Easy bruising-No, Easy bleeding-No. Endocrine: Heat or cold intolerance-No, Excessive sweating-No, Frequent urination-No, Frequent thirst-No. Ingrid Matos RN PHYSICAL EXAMINATION: BP 161/87 Pulse 68 Ht 175.3 cm (5' 9) Wt 129.1 kg (284 lb 9.6 oz) BMI 42.03 kg/m General: Well appearing, in no acute distress, speaking in complete sentences. Skin: No clubbing, no cyanosis. INCINERATOR ATTENDANT-D pocket is well-healed. Neck: no jugular venous distention, Lungs: Clear to auscultation bilaterally, no wheezing or rhonchi. Heart: Regular rhythm, PMI not displaced, S1, S2 normal, no S3, no S4, no heaves, no rub and no murmur. Abdomen: Soft, nontender, bowel sounds normal, no palpable organomegaly, no bruits. Extremities: No peripheral edema . Grade 2/4 distal pulses bilaterally. Neuro: Oriented to person, place and time, alert, cooperative, gait coordinated. CARDIOVASCULAR MEDICINE TESTING: Title: Normal In-Office: With Events 10/02/2023 * Normal Device Function * Events or Alerts: 7 * Battery: --, 1.60 yrs * Sensing, impedance and thresholds reviewed and tested * Presenting Rhythm: /Bi-vp of global marketing/PVC * Underlying Rhythm: Sinus rhythm with PVCs * Heart Rate Histograms reviewed * Pacing and Detection Parameters were evaluated Title: Non-sustained Tachycardia: AT * Stored EGMs are consistent with or suggestive of non-sustained Atrial Tachycardia * Total episodes: 6 Title: Tachycardia: SVT * Stored EGMs are consistent with or suggestive of Supraventricular Tachycardia * AT burden: <1% * Total number of events: 1 ECG - sinus+AP/STEELER with 1 PVC, mean ventricular rate of 68bpm. Cath 09/10/2016 1. Mild CAD throughout the LAD, circumflex, and RCA systems. 2. Mild-moderately depressed LV systolic function, estimated EF 40-45%. 3. No aortic stenosis. 4. Only mild-moderately elevated LVEDP. RECOMMENDATIONS: Continued aggressive management of CHF. Weight loss would be beneficial. IMPRESSION: Mr. Grubbs is a 72 year old male with a history of asthma, atrial fibrillation (s/p cardioversion 2015; sotolol & eliquis), CHF s/p INCINERATOR ATTENDANT-D 04/11/2011, VT, long QT, COPD, depression, nonobstructive CAD, HLD, HTN, obesity (BMI 45.5) status post bariatric surgery 2019, diabetes and ARMANDO on CPAP. He is here to establish EP care (can no longer see his previous EP doctor because of insurance coverage). He is ding well. He had a recent cryo PVI and appears to have been maintaining sinus rhythm since. His INCINERATOR ATTENDANT-D is also functioning appropriately (~1.5 years until LILA). He reportedly had systolic dysfunction in the past - but with LVEF recovery. Going forward, I see no reason to make any major changes to his management. He will remain on Eliquis 5mg PO bid. At his request, we will transfer his INCINERATOR ATTENDANT-D remotes to our device clinic. He will alsoneed to establish care with a clinical tax commissioner and asked for a referral (preferably to an office closer to his home). PLAN AND RECOMMENDATIONS: -See above. -Follow-up with me in 12 months or sooner, if needed. Wali Bravo MD I personally interviewed, confirmed and edited the above information as obtained by others. CONTACT INFORMATION: Wali Bravo MD, PHD Medical Decision Making: Problems: Moderate: 2+ stable chronic illnesses Data: Unique test result(s) reviewed: 3+ Risk: Moderate: Drug management and Moderate risk from testing/treatment Medical Decision Making Level: 4 - Moderate [facility] Discharge instructions Patient Education 07/01/2023 10:02:13 Cardiac Ablation, [id number] Cardiac Ablation Cardiac ablation is a procedure to stop some heart tissue from causing problems. The heart has manyelectrical connections. Sometimes these connections make the heart beat very fast or irregularly. Removing some problem areas can improve the heart rhythm or make it normal. What happens before the procedure? Follow instructions from your doctor about what you cannot eat or drink. Ask your doctor about: ?Changing or stopping your normal medicines. This is important if you take diabetes medicines or blood thinners. ?Taking medicines such as aspirin and ibuprofen. These medicines can thin your blood. Do not take these medicines before your procedure if your doctor tells you not to. Plan to have someone take you home. If you will be going home right after the procedure, plan to have someone with you for 24 hours. What happens during the procedure? To lower your risk of infection: ?Your health care team will wash or sanitize their hands. ?Your skin will be washed with soap. ?Hair may be removed from your neck or groin. An IV tube will be put into one of your veins. You will be given a medicine to help you relax (sedative). Skin on your neck or groin will be numbed. A cut (incision) will be made in your neck or groin. A needle will be put through your cut and into a vein in your neck or groin. A tube (catheter) will be put into the needle. The tube will be moved to your heart. X-rays (fluoroscopy) will be used to help guide the tube. Small devices (electrodes) on the tip of the tube will send out electrical currents. Dye may be put through the tube. This helps your surgeon see your heart. Electrical energy will be used to scar (ablate) some heart tissue. Your surgeon may use: ?Heat (radiofrequency energy). ?Laser energy. ?Extreme cold (cryoablation). The tube will be taken out. Pressure will be held on your cut. This helps stop bleeding. A bandage (dressing) will be put on your cut. The procedure may vary. What happens after the procedure? You will be monitored until your medicines have worn off. Your cut will be watched for bleeding. You will need to lie still for a few hours. Do not drive for 24 hours or as long as your doctor tells you. Summary Cardiac ablation is a procedure to stop some heart tissue from causing problems. Electrical energy will be used to scar (ablate) some heart tissue. This information is not intended to replace advice given to you by your health care provider. Make sure you discuss any questions you have with your health care provider. Document Released: 09/25/2013 Document Revised: 01/05/2018 Document Reviewed: 2016 [employer] Patient Education 2020 [employer] Follow Up Care 06/19/2023 13:30:53 With:LYDIA KELLY MD Address: [address] [place] [address] [address] [facility] [place] [address]- [phone] When:08/15/2023 09:15:00 [facility] 05-25-2024 Note Discharge Instructions Thank you for allowing [facility] to assist you with your healthcare needs. The following is importantdischarge information regarding your hospital visit. Your Care Team MARCIANO WEAVER MD What to do next Scheduled Follow-Up Appointments Appointment Type When Where Contact Information StatusCV OV 08/15/2023 09:15 AM EDT [facility] Confirmed CV Office Procedure ICD 09/14/2023 03:00 PM EDT [facility] Confirmed CV Remote Procedure HM 12/14/2023 10:30 AM EST [facility] Confirmed CV OV 01/29/2024 03:30 PM EST [facility] Confirmed Follow Up Appointments Follow Up with LYDIA KELLY MD When:08/15/2023 09:15 AM EDT Where:[address] [facility] [place] [address]- [phone] The Following Activity and Diet Have Been Ordered for You Discharge Activity - Ordered -- Lifting Restricted less than 25 pounds, No lifting over 25 pounds for 48 hours. May shower. No tub bath or pool for 48 hours., 07/01/23 8:49:00 EDT Discharge Diet - Ordered -- No changes were made to your diet during your hospital stay. Please resume your pre hospitalization diet on discharge., 07/01/23 8:49:00 EDT The Following Equipment Has Been Ordered for You No qualifying data available. The Following Treatments Have Been Ordered for You Discharge Labs No qualifying data available. Discharge Radiology No qualifying data available. Other Therapies No qualifying data available. Post Acute Orders No qualifying data available. Someone Will Contact You Regarding These Home Health Referrals No home referrals have been ordered for you. No one will call you. Allergies Avelox Hives Medications Please ask your primary doctor or pharmacist before taking any other medication not listed, including over the counter drugs, herbal medications, vitamins and or supplements as they may interact withyour home medications. What How Much When Instructions Last Dose Unchanged allopurinol (allopurinol 300 mg oral tablet) 1 tab(s) by mouth Once a day after a meal Unchanged apixaban (Eliquis 5 mg oral tablet) 1 tab(s) by mouth Two (2) times a day Unchanged aspirin (aspirin 81 mg oral delayed release tablet) 1 tab(s) by mouth Every day Unchanged atorvastatin (atorvastatin 20 mg oral tablet) 1 tab(s) by mouth Every day Unchanged buPROPion (buPROPion 150 mg/ 24 hours (XL) oral tablet, extended release) 1 tab(s) by mouth Two (2) times a day Unchanged carvedilol (carvedilol 12.5 mg oral tablet) 1 tab(s) by mouth Twice daily with meals Unchanged cholecalciferol (Vitamin D3) 50 Microgram by mouth Every day Unchanged cyanocobalamin (Vitamin B12 1000 mcg oral tablet) 1 tab(s) by mouth Every day Unchanged dapagliflozin (Farxiga 10 mg oral tablet) 10 Milligram by mouth Once a day (in the morning) Unchanged dulaglutide (Trulicity Pen 3 mg/ 0.5 mL subcutaneous solution) INJECT 0.5 ML UNDER THE SKIN WEEKLY Unchanged formoterol-mometasone (Dulera 200 mcg-5 mcg/ inh Metered Dose Inhaler) 2 puff(s) by inhalation Two (2) times a day as needed for Shortness of breath or wheezing Unchanged furosemide (Lasix 40 mg oral tablet) 1 tab(s) by mouth Every day Unchanged glipiZIDE (glipiZIDE 10 mg oral tablet) 1 tab(s) by mouth Once a day before a meal Unchanged glucagon (Gvoke HypoPen Two Pack 1 mg/ 0.2 mL subcutaneous solution) 0.1 Milliliter Subcutaneous As Directed as needed for for low blood sugar Unchanged ipratropium nasal (ipratropium (0.03%) nasal 21 mcg/ spray (Atrovent Nasal)) 2 spray(s) in the nose Once a day as needed for Nasal congestion Unchanged ketoconazole topical (ketoconazole 2% topical cream) See instructions Topical qDay to legs, As needed for Cold symptoms Unchanged metFORMIN (MetFORMIN (Eqv-Fortamet) 500 mg oral tablet, EXTENDED RELEASE) 1 tab(s) by mouth Two (2) times a day Unchanged Misc Medication (ONETOUCH ULTRA BLUE TEST STRP) TEST TWICE DAILY DIRECTED Unchanged montelukast (montelukast 10 mg oral tablet) 1 tab(s) by mouth Once a day Unchanged multivitamin with minerals (Flintstones Complete Chewable) 1 tab(s) Chewed Once a day Unchanged potassium citrate (potassium citrate 5 mEq oral tablet, extended release) 1 tab(s) by mouth After meals & at bedtime Unchanged tamsulosin (tamsulosin 0.4 mg oral capsule) 1 cap by mouth Once a day Unchanged traMADol (traMADol 50 mg oral tablet) 1 tab(s) by mouth Two (2) times a day as needed for as needed for pain Please take this list to your next doctor s visit. Bring all medications you take, including over the counter medications, herbals and other supplements with you to your doctor s visit. Patients and families are reminded to discard old lists and to update any records with all medication providers or retail pharmacies. Education Materials Cardiac Ablation Cardiac ablation is a procedure to stop some heart tissue from causing problems. The heart has manyelectrical connections. Sometimes these connections make the heart beat very fast or irregularly. Removing some problem areas can improve the heart rhythm or make it normal. What happens before the procedure? Follow instructions from your doctor about what you cannot eat or drink. Ask your doctor about: ? Changing or stopping your normal medicines. This is important if you take diabetes medicines or blood thinners. ? Taking medicines such as aspirin and ibuprofen. These medicines can thin your blood. Do not take these medicines before your procedure if your doctor tells you not to. Plan to have someone take you home. If you will be going home right after the procedure, plan to have someone with you for 24 hours. What happens during the procedure? To lower your risk of infection: ? Your health care team will wash or sanitize their hands. ? Your skin will be washed with soap. ? Hair may be removed from your neck or groin. An IV tube will be put into one of your veins. You will be given a medicine to help you relax (sedative). Skin on your neck or groin will be numbed. A cut (incision) will be made in your neck or groin. A needle will be put through your cut and into a vein in your neck or groin. A tube (catheter) will be put into the needle. The tube will be moved to your heart. X-rays (fluoroscopy) will be used to help guide the tube. Small devices (electrodes) on the tip of the tube will send out electrical currents. Dye may be put through the tube. This helps your surgeon see your heart. Electrical energy will be used to scar (ablate) some heart tissue. Your surgeon may use: ? Heat (radiofrequency energy). ? Laser energy. ? Extreme cold (cryoablation). The tube will be taken out. Pressure will be held on your cut. This helps stop bleeding. A bandage (dressing) will be put on your cut. The procedure may vary. What happens after the procedure? You will be monitored until your medicines have worn off. Your cut will be watched for bleeding. You will need to lie still for a few hours. Do not drive for 24 hours or as long as your doctor tells you. Summary Cardiac ablation is a procedure to stop some heart tissue from causing problems. Electrical energy will be used to scar (ablate) some heart tissue. This information is not intended to replace advice given to you by your health care provider. Make sure you discuss any questions you have with your health care provider. Document Released: 09/25/2013 Document Revised: 01/05/2018 Document Reviewed: 2016 [employer] Patient Education 2020 [employer]. Additional Information VACCINATE! IT SAVES LIVES! Members of the community who have not yet received the COVID-19 vaccine and would like to receive it can visit one of [facility] vaccine clinics. There are many vaccine clinic locations within the [facility]. For locations and available times, please visit [email or web address].[place].[email or web address] It is important to note that some COVID mobile vaccine clinics are held outdoors and may be canceled in rainy or stormy conditions. To learn more about pediatric vaccinations (ages 5-11), we invite you to visit the [facility] webpage. [email or web address] learn more about the COVID-19 vaccine, we invite you to visit the CDC website for a list of frequently asked questions.https://www.cdc.gov/coronavirus/2019-ncov/vaccines/faq.html [facility] Patient Portal Access Instructions: Stay connected with your healthcare team and access your personal medical information anytime with the [facility] Patient Portal. Please follow the directions below to create your [facility] account: 1.Access the email account you provided upon registration to the hospital/physician office.2.Look for an invitation email from [facility].3.Open the email and access the invitation link: AcceptInvitation to [facility].4.Fill in the required ramirez to create your account. To access your account, visit [email or web address]. Click the blue button labeled Access Patient Portal and then log in with the username and password that you created in the steps above. You will be able to view your test results, lab results, a summary of your visits, upcoming appointments and more. There is also a convenient messaging option where you can send secure messages to your p rovider. In addition, you will have the ability to download any documents or summaries to your computer and/or send the information securely to a physician. Remember that your healthcare information is confidential, so carefully consider who you will allowto register on the [facility] Patient Portal for access to your information. You can also access the [facility] Patient Portal on the [facility] isabel. Simply click on Patient Portal and then log into your account. If you would like to receive a full copy of your medical records, please contact the [facility] Medical Records Department by calling [phone], Monday through Monday between 8 a.m. and 4:30 p.m. HOW TO SAFELY DISPOSE OF PRESCRIPTION MEDICATIONS Please use one of the following methods to safely dispose of your unused medications. 1.Use a drug disposal kit: the drug disposal pouch allows you to safely discard your old and unuseddrugs. Ask your nurse to give you one when you are discharged.2.Visit a local take-back location: Many local pharmacies and police departments have programs that collect old and unwanted prescriptiondrugs. Call your local pharmacy or go to http://bit.ly/6R5Dj1k to find one close to you.3.Make use of household items: Use cat litter or old coffee grounds to dispose medications if other options arenot available. Mix your drugs with these household products, seal them in an airtight container andthrow it into the garbage. Call [facility]: [phone] to be sure your drugs can be disposed of in this way. Some medicines may require a different approach.4.Never flush your medications down the toilet. IF YOU HAVE BEEN PRESCRIBED AN OPIOID FOR PAIN If you have been prescribed an opioid (such as hydrocodone, oxycodone or morphine), it is critical to understand the possible side effects and risks of opioid pain medications. Even when taken as directed, opioids can have several side effects including: Tolerance, meaning you might need to take more of a medication for the same pain relief. Nausea, vomiting and/or constipation. Sleepiness, dizziness, dry mouth, confusion, depression or itching. Physical dependence, meaning you have withdrawal symptoms when a medication is stopped, can develop within a few days. KNOW YOUR RESPONSIBILITIES It is important to know exactly how much and how often to take the opioid pain medications you are prescribed. Never take opioids in higher amounts or more often than prescribed. Do not combine opioids with alcohol or other drugs that cause drowsiness, such as benzodiazepines, also known as benzos, including diazepam and alprazolam, muscle relaxants or sleep aids. Never sell or share prescription opioids. This is illegal. Store opioids in a secure place and out of reach of others (including children, family, friends and visitors). The last page of this document has been signed and retained as a CHART COPY. Signatures Patient Education Materials Cardiac Ablation, Aolt-bj-Tqfj Medication Leaflets My discharge plan and instructions have been reviewed and explained to me and I,LC GRUBBS understand my current condition and have read and understand these discharge instructions. I have received a written copy of the plan/instructions. If I have questions, I am aware that I should contact my doctor. Patient/Contract Specialist Signature: Date/Time: Relationship to Patient: Witness Name/Signature: Date/Time: [id number] Note EP PROGRESS NOTESeen for AFIB, INCINERATOR ATTENDANT-D, VT, IVCD. PCP: Marciano Weaver MD CV: MD Ellen Patient: Lc Grubbs medical record# [id number] TELEMETRY reviewed: Sinus/ASVPR with capture/INCINERATOR ATTENDANT. Episodes of Ventricular bigeminy. APCs. QT long for rate. ECG reviewed personally:(06/30 7:10am): Sinus/ASVPR with capture/INCINERATOR ATTENDANT 83 bpm, pr 186ms, qrs 155ms, [id number]. VPCs. LABS: reviewed. WBC 6.3, hemoglobin 13.8, 140,000 platelets. Sodium 144, potassium 3.8, chloride 112, bicarb 26, glucose 104, BUN 19, creatinine 1.34. GFR 52. Calcium 8.8. SUBJECTIVE: The patient denies any angina, dyspnea, lightheadedness, or palpitations. Eating and ambulating halls ok. OBJECTIVE: 140/80, pulse 75, respirations 16, afebrile. LUNGS: clear, normal respiratory excursion. COR: S1 S2, no S3 or rub. INCINERATOR ATTENDANT-D site well-healed in left pectoral region. EXT: no edema, pulses 2+ bilaterally. Figure-of-8 sutures/stopcocks removed from bilateral groin cath sites, no hematoma. minor excoriations of skin where he was shaved. IMPRESSION/Recommendations: 1. s/p CRYO PVAI 06/30/23 for Recurrent Persistent Atrial Fibrillation, CHADSVASC= 5, SEVERE LAE found intra-procedurally. HOME TODAY. 2. Ventricular Tachycardia. stable with INCINERATOR ATTENDANT-D. 3. Long QT interval. 4. 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 Over 1 yr battery left. Lt INCINERATOR ATTENDANT-D 12/20/18: Villagomez/[facility] NOELLE JARQUIN MP, 3369-40Q, #[id number]. RA Lead: [facility] 1688TC/52, #[id number] 04/11/11. RV Lead: sj 7122Q/65, #[id number] 04/11/11. LV Lead(cs): sj 1458Q/86, #[id number] 04/11/11. 5. Nonsignificant CAD [2019]. 6. HTN LVEF 52% 2023. 7. COPD with bronchospastic component. 8. DM. 9. Gastric bypass with over 100 lb wt loss. 10. Dyslipidemia. 11. Polypharmacy. Lydia Kelly MD, FHRS, FACC pager [phone] Digitally Signed by LYDIA KELLY MD on 07/01/2023 09:09 AM [id number] Physician Discharge summary DISCHARGE SUMMARY NOTEPCP: Marciano Weaver MD CV: MD Ellen Patient: Lc Grubbs medical record# [id number] date of Admission: 06/30/23date of Discharge: 07/01/23 Discharge diagnoses: 1. Recurrent Persistent Atrial Fibrillation, CHADSVASC= 5, SEVERE LAE found intra-procedurally. 2. Ventricular Tachycardia. 3. Long QT interval. 4. 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 Over 1 yr battery left. Lt INCINERATOR ATTENDANT-D 12/20/18: [facility]agomez/[facility] NOELLE JARQUIN MP, 3369-40Q, #[id number]. RA Lead: sjm 1688TC/52, #[id number] 04/11/11. RV Lead: sjm 7122Q/65, #[id number] 04/11/11. LV Lead(cs): sjm 1458Q/86, #[id number] 04/11/11. 5. Nonsignificant CAD [2020]. 6. HTN LVEF 52% 2023. 7. COPD with bronchospastic component. 8. DM. 9. Gastric bypass with over 100 lb wt loss. 10. Dyslipidemia. 11. Polypharmacy. Principal procedures performed: 1. CRYO Pulmonary Vein Antral Isolation (PVAI) ablation. 2. Electrophysiology Study with 3D mapping (Villagomez). 3. Transeptal puncture for left atrial access. 4. Intracardiac Echocardiography & Vascular Ultrasound. 5. Maria G-procedural evaluation/reprogramming of INCINERATOR ATTENDANT-D Villagomez. 6. General anesthesia & iv anticoagulation. Discharge medications: 1. Eliquis 5 mg twice daily resume evening Monday, June 30. 2. Aspirin 81 mg daily. 3. Carvedilol 12.5 mg twice daily. 4. Allopurinol 300 mg evenings. 5. Atorvastatin 20 mg daily. 6. Bupropion XL 150 mg twice daily. 7. Vitamin D3 50 mcg daily. 8. Vitamin B12 1000 mcg daily. 9. Dapagliflozin 10 mg mornings. 10. Trulicity pen 0.5 mL underskin weekly. 11. Dulera 2 puffs twice daily as needed dyspnea. 12. Furosemide 40 mg daily. 13. Glipizide 10 mg daily AC. 14. Glucagon 0.5 mg subcu as needed low blood sugar. 15. Ipratropium nasal spray 2 puffs daily as needed nasal congestion. 16. Ketoconazole 2% cream applied to legs as needed. 17. Metformin ER 500 mg twice daily. 18. Montelukast 10 mg daily. 19. Multivitamins with minerals daily. 20. Potassium citrate 5 mEq nightly. 21. Tamsulosin 0.4 mg daily. 22. Tramadol 50 mg twice daily as needed. Discharge instructions: Resume prior diet. No lifting over 25 pounds for 48 hours. May shower. No tub bath or pool for 48 hours. Follow up with Dr. Kelly's office in 6-8 weeks. Summary: 72-year-old male presenting for cryo ablative therapies for recurrent persistent atrial fibrillation with debilitating symptoms. Please see history and physical for further details. Hospital course: The patient presents in atrial fibrillation. Echo shows severe atrial enlargement and significant scarring throughout atrium. Successful CRYO PVAI performed with sinus returning during ablation. Exitblock demonstrated all pulmonary veins. His postoperative course was marked by some atrial arrhythmias and VPCs. He is eating and ambulating adequately at the time of discharge. His cath sites are healing well with no hematoma. He will follow-up with us in several weeks to review rhythm and symptoms. We expect him to have some recurring arrhythmias over the first few months while electrical/anatomic remodeling occurs; he does not tolerate stronger antiarrhythmic therapy due to his baseline longQT. Lydia Kelly MD, [facility], [facility] pager [phone] Digitally Signed by LYDIA KELLY MD on 07/01/2023 09:03 AM [facility] HospitalFbmatpie04-90-1926 Note ELECTROPHYSIOLOGY STUDY & ABLATION NOTEPCP: Marciano Weaver MD CV: MD Ellen Patient: Lc Grubbs medical record# [id number] date of Procedure: 06/30/23 PROCEDURE: 1. CRYO Pulmonary Vein Antral Isolation (PVAI) ablation. 2. Electrophysiology Study with 3D mapping ([email or web address]). 3. Transeptal puncture for left atrial access. 4. Intracardiac Echocardiography & Vascular Ultrasound. 5. Maria G-procedural evaluation/reprogramming of INCINERATOR ATTENDANT-D Villagomez. 6. General anesthesia & iv anticoagulation. INDICATION: 1. Recurrent Persistent Atrial Fibrillation, CHADSVASC= 5, SEVERE LAE identified intraoperatively. 2. Ventricular Tachycardia. 3. Long QT interval. 4. Lt INCINERATOR ATTENDANT-D Villagomez [12/08/18]. 5. Nonsignificant CAD [2019]. 6. HTN LVEF 52% 2023. 7. Comorbid d: COPD with bronchospastic component, DM, Gastric bypass with over 100 lb wt loss, Dyslipidemia. Medications: Eliquis, asa, carvedilol. SUMMARY: 1. Successful CRYO PVAI ablation with exit block demonstrated all pulmonary veins. 2. Esophagus coursed near right pulmonary veins but did not require titration of energy. Low amplitude EGMs in remaining atrial tissue. 3. Presenting rhythm Atrial Fibrillation with V-paced rhythm w capture 80 bpm. During ablation LSPVsinus rhythm returned 60-80 bpm which maintained, V-paced rhythm with capture/organic extractions technician. 4. Iterative evaluation INCINERATOR ATTENDANT-D: Lt INCINERATOR ATTENDANT-D 12/20/18: Villagomez/[facility] NOELLE JARQUIN MP, 3369-40Q, #[id number]. RA Lead: [facility] 1688TC/52, #[id number] 04/11/11. RV Lead: [facility] 7122Q/65, #[id number] 04/11/11. LV Lead(cs): sj 1458Q/86, #[id number] 04/11/11. - Battery longevity 1.7 yrs. - RA lead captures 0.75V/0.5ms, 410 ohms, P wave 1.6mV. RV lead captures 1.5V/0.5ms, 430 ohms, 64 ohms, R wave 10.7mV. LV lead[LV1-2] captures 1.75V/0.5ms, 850 ohms. - FINAL PROGRAMMED VALUES: DDD 60-120 bpm, AV delay 180/150ms, INCINERATOR ATTENDANT ON [LV1-2] [id number]. VT rate cutoff 171 bpm => ATP x 3, CV 30j / 36j / 40j x 2. VF rate cutoff 214 bpm => quikATP, Defib 30j / 36j / 40j x 4. RECOMMENDATIONS: Observe overnight. Bedrest 4 hours with legs still, then may ambulate. Will remove Figure-of-8 sutures/stopcocks in am. Resume Eliquis Friday 06/30 evening. Resume prior diet. No lifting over 25 pounds for 48 hours. May shower. No tub bath or pool for 48 hours. Follow up with Dr. Kelly's officein 6-8 weeks. Procedure: The patient was brought to EP LAB #1 in the fasting well-hydrated state and prepped and draped in the usual sterile fashion. The 3D mapping patches were applied on the thorax prior to draping the patient. General anesthesia was administered by anesthesia personnel present throughout the case, during which time an esophageal thermistor probe was placed for localizing the esophagus and for monitoring temperature during ablation, regularly repositioning the probe to a site closest to the ablation catheter. The INCINERATOR ATTENDANT-D was interrogated/evaluated, then tachycardia therapies were programmed off. Using modified Seldinger technique and Vascular Ultrasound, one venous sheath and additional long venous sheath were placed in the left femoral vein, through which were advanced diagnostic HIS catheter and an intracardiac echocardiography (ICE) catheter under fluoroscopic guidance into the right atrium, and a baseline ICE study was performed. Baseline ICE demonstrated normal Severe ZENAIDA. Mild LV/RV dysfunctionl. Mitral, tricuspid, pulmonic, and aortic valve leaflets were grossly normal in appearance with normal exam. There were two left pulmonary veins, and two right pulmonary veins. There was no intracardiac mass or thrombus. There was no pericardial effusion. Subsequently, the ICE catheter was positioned on a plane to demonstrate the intraatrial septum and left pulmonary vein. Using modified Seldinger technique and Vascular Ultrasound, a long guidewire was placed into the right femoral vein up to the the SVC and the patient was administered iv heparin bolus and drip to a goal ACT of 300-400s. Over the guidewire was placed a [employer] Systemstronic steerable Transeptal sheath mounted on a ACQ-CROSS needle/dilator. The guidewire was withdrawn into the sheath and With the fluoroscopy positioned in the LITHUANIAN position, the sheath was gradually withdrawn back into the RA until the tip tented against the intraatrial septum as verified by the ICE catheter. Transeptal puncture was performed verified by visualizing in the LA by ICE, as well as by passing the guidewire thru the needle/dilator assembly into the left pulmonary vein. The sheath was advanced while the guidewire and needle/dilator were removed resulting in one transseptal puncture and one sheath exiting in the left atrium. The sheath was carefully flushed and connected to heparinized saline solution. Through that sheath was advanced the [employer] ArcticFront Advance CRYO-balloon and Achieve mapping catheter. An electro-anatomic map The left atrium and pulmonary veins was created. Cryoablation was then performed in a sequential manner starting with the left superior pulmonary vein, left inferior pulmonaryvein, right inferior pulmonary vein, and right superior pulmonary vein. Ablation was performed during real-time analysis of the electrograms. Prior to ablating the right pulmonary veins, the HIS bundle catheter was repositioned in the SVC to pace the phrenic nerve while monitoring diaphragmatic contraction to assure no damage to the phrenic nerve during ablation. Approximately two freezes were performed on each vein. Upon completion of ablation, the mapping catheter was repositioned in each of the veins and pacing was performed to demonstrate exit block. Upon completing ablation and testing, the ablation system and transseptal sheath were removed from the left atrium with the ablation system removed from the body, and the sheath pulled back to the inferior vena cava. At completion of testing, all catheters were removed from the body. A final ice study was performedand then this catheter was removed. The patient was recovered from anesthesia and administered IV protamine to reverse heparin effect. Local anesthesia with 1% lidocaine was administered to provide anumbing effect in the left and right femoral regions. Figure-of-8 sutures with 2-0 Vicryl were tied around the bilateral groin cath sites secured with stopcocks. The sheaths were pulled once the ACT level dropped below 160 seconds, and pressure was held until adequate hemostasis was obtained. The INCINERATOR ATTENDANT-D was reinterrogated/reevaluated, then Tachycardia therapies were programmed on again. The patient was recovered and sent to his room in stable condition. Complications: None. Specimens: None. Estimated blood loss: 5 mL. Contrast: 2mL. Lydia Kelly MD, [facility], [facility] pager [phone] Digitally Signed by LYDIA KELLY MD on 06/30/2023 03:49 PM [id number] Evaluation + Plan noteExtracted from: Title:H&P 06/30/23 Author:LYDIA KELLY MD Date:06/29/23 HISTORY & PHYSICALPCP: Marciano Weaver MD CV: MD Ellen Patient: Lc Grubbs medical record# [id number] date of Admission: 06/30/23 CC: AFIB. HPI: 72 yr old male patient presenting for CRYO Pulmonary Vein Antral Isolation (PVAI) ablation for Recurrent Persistent Atrial Fibrillation. He was initially recommended for HYBRID AFIB Ablation due to severe LAE, but recent ECHO reports LA size normal, LVEF 52%. Nonsignificant CAD by cath 2020. INCINERATOR ATTENDANT-D Villagomez 12/20/18, Summer for VT. Baseline QT prolongation. Dyspnea with moderate exertion. He denies any angina, swelling, or lightheadedness. He was rescheduled from 06/08/23 because he stopped his anticoagulation too soon at that time. ALLERGIES: Avelox. MEDICATIONS: 1. Eliquis 5 mg twice daily, last dose 24 hours prior to procedure. 2. Aspirin 81 mg daily. 3. Carvedilol 12.5 mg twice daily. 4. Allopurinol 100 mg daily. 5. Atorvastatin 20 mg daily. 6. Budesonide/formoterol inhaled twice daily. 7. Bupropion 150 mg twice daily. 8. Vitamin B12 1000 mcg daily. 9. Dapagliflozin 10 mg daily. 10. Trulicity injection 0.5 mL subcutaneous weekly. 11. Famotidine 20 mg daily. 12. Furosemide 40 mg daily. 13. Glucagon 0.5 mg subcu as needed low blood sugar. 14. Ipratropium 0.03% nasal spray daily. 15. Ketoconazole topical cream to legs. 16. Montelukast 10 mg daily. 17. Multivitamins with minerals daily. 18. Potassium citrate 5 mEq PC at bedtime. 19. Tamsulosin 0.4 mg daily. 20. Tramadol 50 mg twice daily as needed pain. PMH: 1. Recurrent Persistent Atrial Fibrillation, CHADSVASC= 5, NL LA size. 2. Ventricular Tachycardia. 3. Long QT interval. 4. 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 Over 1 yr battery left. Lt INCINERATOR ATTENDANT-D 12/20/18: Villagomez/valdez JARQUIN MP, 3369-40Q, #[id number]. RA Lead: [facility] 1688TC/52, #[id number] 04/11/11. RV Lead: [facility] 7122Q/65, #[id number] 04/11/11. LV Lead(cs): [facility] 1458Q/86, #[id number] 04/11/11. 5. Nonsignificant CAD 2019. 6. HTN LVEF 52% 2023. 7. COPD with bronchospastic component. 8. DM. 9. Gastric bypass with over 100 lb wt loss. 10. Dyslipidemia. 11. Tonsillectomy. SHx: Retired, no tobacco use, prior alcohol consumption, no caffeine intake. FHx: Father had Lung CA, mother had Cancer, Sister had GA/Breast CA. RoS: Positives per HPI, remainder reviewed and negative. PE: 110/80 p80 r18 Ht 175cm Wt 130kg BMI 42.4. CONSTITUTIONAL: Well-developed, well nourished, in no acute distress. HEAD: Normocephalic, atraumatic. EENT: Pupils round, reactive to light and accommodation. Extraoccular muscles intact. No ENT exudates. NECK: No jugular venous distention, no carotid bruits, no thyroid masses. LUNGS: Clear, normal respiratory excursion. COR: Apical impulse not appreciated. Single S1, S2, no S3, rub, click or murmur. INCINERATOR ATTENDANT-D site well-healed in left pectoral region. ABD: Bowel sounds present, soft, nontender, no masses or pulsations. EXTREMITIES: Pulses 2+ bilaterally, no edema. SKIN: No rash or chronic skin infection. LYMPH: No lymphadenopathy noted. NEURO: Alert and oriented to person place time, no gross focal motor deficit. IMPRESSION: 1. Recurrent Persistent Atrial Fibrillation, CHADSVASC= 5, NL LA size. 2. Ventricular Tachycardia. 3. Long QT interval. 4. 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 Over 1 yr battery left. Lt INCINERATOR ATTENDANT-D 12/20/18: Villagomez/valdez JARQUIN MP, 3369-40Q, #[id number]. RA Lead: sjm 1688TC/52, #[id number] 04/11/11. RV Lead: sjm 7122Q/65, #[id number] 04/11/11. LV Lead(cs): sjm 1458Q/86, #[id number] 04/11/11. 5. Nonsignificant CAD [2019]. 6. HTN LVEF 52% 2023. 7. COPD with bronchospastic component. 8. DM. 9. Gastric bypass with over 100 lb wt loss. 10. Dyslipidemia. PLAN: CRYO PVAI ablation. We will perform EPS with 3D mapping (Bright.md), transeptal puncture for left atrial access, Intracardiac Echocardiography & Vascular Ultrasound, general anesthesia and IV anticoagulation. Findings reviewed with patient including risks of diagnoses. Proposed procedure and risks explained. Questions answered. He agrees to proceed. Post-procedure he will have follow up visit 07/31/23 2:45pm. Lydia Kelly MD, [facility], [facility] pager [phone] Future Appointments Appointment Date:08/15/2023 09:15:00 AM Scheduled Provider: Location:[facility] Appointment Type:CV OV Appointment Date:09/14/2023 03:00:00 PM Scheduled Provider: Location:[facility] Appointment Type:CV Office Procedure ICD Appointment Date:12/14/2023 10:30:00 AM Scheduled Provider: Location:[facility] Appointment Type:CV Remote Procedure HM Appointment Date:01/29/2024 03:30:00 PM Scheduled Provider: Location:[facility] Appointment Type:CV OV Diagnostic Tests Pending * Complete Blood Count 07/01/23 [facility] 05-24-2024 Note* Exam Date Time Procedure Performing Provider Status 06/30/23 12:45 PM Ablation Cryo-Ensite - CV Auth (Verified) [facility] 05-24-2024 Anesthesiology Consult note Patient: LC GRUBBS Age: 72 years Sex: Male : 1950 Associated Diagnoses: None Author: DEBBIE DOAN MD Preoperative Information Greater than 6 hours Anesthesia history Patient's history: negative. Family's history: negative. History of Present Illness The patient presents for preanesthesia evaluation with Ablation. Review of Systems Ear/Nose/Mouth/Throat: Negative except as documented in history of present illness. Respiratory: Negative except as documented in history of present illness. Cardiovascular: Negative except as documented in history of present illness. Gastrointestinal: Negative except as documented in history of present illness. Genitourinary: Negative except as documented in history of present illness. Endocrine: Negative except as documented in history of present illness. Musculoskeletal: Negative except as documented in history of present illness. Integumentary: Negative except as documented in history of present illness. Neurologic: Negative except as documented in history of present illness. Health Status Allergies: Allergic Reactions (Selected) Severity Not Documented Avelox- Hives., Allergies (1) ActiveReaction AveloxHives Current medications: (Selected) Inpatient Medications Ordered NS 1,000 mL: 20 mL/hr, Intravenous Documented Medications Documented Dulera 200 mcg-5 mcg/inh Metered Dose Inhaler: 2 puff(s), Inhalation, BID, PRN: Shortness of breathor wheezing, 0 Refill(s) Eliquis 5 mg oral tablet: 5 mg, 1 tab(s), Oral, BID, 0 Refill(s) Farxiga 10 mg oral tablet: 10 mg, Oral, qAM, 0 Refill(s) Flintstones Complete Chewable: 1 tab(s), Chewed, qDay, 0 Refill(s) Gvoke HypoPen Two Pack 1 mg/0.2 mL subcutaneous solution: 0.5 mg, 0.1 mL, Subcutaneous, AsDirected,PRN: for low blood sugar, 1 EA, 1 Refill(s) Lasix 40 mg oral tablet: 40 mg, 1 tab(s), Oral, Daily, 0 Refill(s) MetFORMIN (Eqv-Fortamet) 500 mg oral tablet, EXTENDED RELEASE: 500 mg, 1 tab(s), Oral, BID, 0 Refill(s) ONETOUCH ULTRA BLUE TEST STRP: TEST TWICE DAILY DIRECTED Trulicity Pen 3 mg/0.5 mL subcutaneous solution: INJECT 0.5 ML UNDER THE SKIN WEEKLY Vitamin B12 1000 mcg oral tablet: 1,000 mcg, 1 tab(s), Oral, Daily, 0 Refill(s) Vitamin D3: 50 mcg, 1 tab(s), Oral, Daily, 0 Refill(s) allopurinol 300 mg oral tablet: 300 mg, 1 tab(s), Oral, qDayPC, 0 Refill(s) aspirin 81 mg oral delayed release tablet: 81 mg, 1 tab(s), Oral, Daily, 0 Refill(s) atorvastatin 20 mg oral tablet: 20 mg, 1 tab(s), Oral, Daily, 0 Refill(s) buPROPion 150 mg/24 hours (XL) oral tablet, extended release: 150 mg, 1 tab(s), Oral, BID, 0 Refill(s) carvedilol 12.5 mg oral tablet: 12.5 mg, 1 tab(s), Oral, BIDM, 0 Refill(s) glipiZIDE 10 mg oral tablet: 10 mg, 1 tab(s), Oral, qDayAC, 0 Refill(s) ipratropium (0.03%) nasal 21 mcg/spray (Atrovent Nasal): 2 spray(s), Nasal, qDay, PRN: Nasal congestion, 0 Refill(s) ketoconazole 2% topical cream: See Instructions, Topical qDay to legs, PRN: Cold symptoms, 0 Refill(s) montelukast 10 mg oral tablet: 10 mg, 1 tab(s), Oral, qDay, 0 Refill(s) potassium citrate 5 mEq oral tablet, extended release: 5 mEq, 1 tab(s), Oral, pchs, 120 tab(s), 0 Refill(s) tamsulosin 0.4 mg oral capsule: 0.4 mg, 1 cap(s), Oral, qDay, 30 cap(s), 0 Refill(s) traMADol 50 mg oral tablet: 50 mg, 1 tab(s), Oral, BID, PRN: as needed for pain, 0 Refill(s), Medications (1) Active Scheduled: (0) Continuous: (1) NS (0.9% nacl) 1,000 mL 1,000 mL, Intravenous, 20 mL/hr PRN: (0) Problem list: Medical Asthma / SNOMED CT [id number] / Confirmed AFIB- Suppressed Persistent / SNOMED CT 08168878 / Confirmed INCINERATOR ATTENDANT-D Villagomez/sjm [12/20/18 Marquez Wheeler] / SNOMED CT 3014854823 / Confirmed Cardiomyopathy EF 65% [2019] / SNOMED CT [id number] / Confirmed CAD in [place] artery / SNOMED CT 94647789 / Confirmed Nonsignificant CAD EF 57% [2018] / SNOMED CT 07654854 / Confirmed Diabetes / SNOMED CT [id number] / Confirmed Hyperlipidemia / SNOMED CT 10346337 / Confirmed Hypertension / SNOMED CT 95433987 / Confirmed Long QT interval / SNOMED CT 367919543 / Confirmed VT (ventricular tachycardia) / SNOMED CT 66172263 / Confirmed, Active Problems (11) AFIB- Suppressed Persistent Asthma CAD in [place] artery Cardiomyopathy EF 65% [2020] INCINERATOR ATTENDANT-D Villagomez/sjm [12/20/18 Marquez Wheeler] Diabetes Hyperlipidemia Hypertension Long QT interval Nonsignificant CAD EF 57% [2018] VT (ventricular tachycardia) Histories Past Medical History: Active Diabetes ([id number]) Asthma ([id number]) Hypertension (92921079) Cardiomyopathy EF 65% [2020] ([id number]) Comments: 02/11/2023 EST 15:31 EST - LYDIA KELLY MD LVEF 65% [2020]. LVEF 57% [2018]. Family History: Malignant neoplasm Mother Breast cancer Sister Heart attack Sister Malignant tumor of lung Father Procedure history: Ablation ([id number]) on 03/25/2019 at 68 Years. Defibrillator, device ([id number]) on 12/20/2018 at 68 Years. Comments: 10/11/2022 8:46 Mary Hernandez RN Biventricular ICD Initial Impllant 2011 [facility] with Generator Replacement 12/20/2018 (Dr Shai Zayas) Generator [facility] 3369-40Q Quadra Assura Serial [id number] RA Lead [facility] 1688T Tendril SDX Serial [id number] 04/11/[address] [facility] 7122QQ Durata SJ4 Serial [id number] 04/11/[address] [facility] 1458Q Quartet serial [id number] 04/11/19`12 Pacemaker ([id number]). Right elbow (655491498). Tonsillectomy (417206458). Bariatric surgery (7607464241). 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 Airway: Normal temporomandibular joint mobility, Normal mouth, Normal throat, Normal neck range of motion, Trachea midline. Mallampati classification: III (soft palate, base of uvula visible). Head: Normocephalic. Dentition Evaluation: Dentures, upper, Dentures, partial plate, No teeth. Neck: Supple. Respiratory: Lungs are clear to auscultation, Respirations are non-labored. Cardiovascular: Normal rate, Regular rhythm, No murmur. Heart Sounds: Normal. Gastrointestinal: Soft. Musculoskeletal Normal range of motion. Integumentary: Intact, Warm, Dry. Neurologic: Alert, Oriented. Review / Management Results review: Labs (Last four charted values) WBC 6.3(JUNE 29) Hgb 13.8(JUNE 29) Hct 40.9(JUNE 29) Plt L 140(JUNE 29) Na 144(JUNE 29) K 3.8(JUNE 29) CO2 26(JUNE 29) Cl H 112(JUNE 29) Cr 1.34(JUNE 29) BUN 19.0(JUNE 29) Glucose 104(JUNE 29) Ca 8.8(JUNE 29) . Assessment and Plan [place] [employer] Anesthesiologists (ASA) physical status classification: Class III. Anesthetic Preoperative Plan Premedication: intravenous. Anesthetic technique: General. Induction: intravenously. Maintenance airway: Oral endotracheal tube. Special techniques: Warming device. Special Monitoring: Arterial line. Postoperative pain management: Per surgeon. Risks discussed: nausea, vomiting, headache, sore throat, dental injury, hypotension, allergic reaction, serious complications, Aspiration. Informed consent: signed by patient. Beta Liv: Beta Liv Taken Within 24 Hrs: Yes. Digitally Signed by DEBBIE DOAN MD on 06/30/2023 12:11 PM [id number] History and physical note HISTORY & PHYSICALPCP: Marciano Weaver MD CV: MD Ellen Patient: Lc Grubbs medical record# [id number] date of Admission: 06/30/23 CC: AFIB. HPI: 72 yr old male patient presenting for CRYO Pulmonary Vein Antral Isolation (PVAI) ablation for Recurrent Persistent Atrial Fibrillation. He was initially recommended for HYBRID AFIB Ablation due to severe LAE, but recent ECHO reports LA size normal, LVEF 52%. Nonsignificant CAD by cath 2020. INCINERATOR ATTENDANT-D Villagomez 12/20/18, Summer for VT. Baseline QT prolongation. Dyspnea with moderate exertion. He deniesany angina, swelling, or lightheadedness. He was rescheduled from 06/08/23 because he stopped his anticoagulation too soon at that time. ALLERGIES: Avelox. MEDICATIONS: 1. Eliquis 5 mg twice daily, last dose 24 hours prior to procedure. 2. Aspirin 81 mg daily. 3. Carvedilol 12.5 mg twice daily. 4. Allopurinol 100 mg daily. 5. Atorvastatin 20 mg daily. 6. Budesonide/formoterol inhaled twice daily. 7. Bupropion 150 mg twice daily. 8. Vitamin B12 1000 mcg daily. 9. Dapagliflozin 10 mg daily. 10. Trulicity injection 0.5 mL subcutaneous weekly. 11. Famotidine 20 mg daily. 12. Furosemide 40 mg daily. 13. Glucagon 0.5 mg subcu as needed low blood sugar. 14. Ipratropium 0.03% nasal spray daily. 15. Ketoconazole topical cream to legs. 16. Montelukast 10 mg daily. 17. Multivitamins with minerals daily. 18. Potassium citrate 5 mEq PC at bedtime. 19. Tamsulosin 0.4 mg daily. 20. Tramadol 50 mg twice daily as needed pain. PMH: 1. Recurrent Persistent Atrial Fibrillation, CHADSVASC= 5, NL LA size. 2. Ventricular Tachycardia. 3. Long QT interval. 4. 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 Over 1 yr battery left. Lt INCINERATOR ATTENDANT-D 12/20/18: Villagomez/valdez JARQUIN MP, 3369-40Q, #[id number]. RA Lead: sjm 1688TC/52, #[id number] 04/11/11. RV Lead: sj 7122Q/65, #[id number] 04/11/11. LV Lead(cs): [facility] 1458Q/86, #[id number] 04/11/11. 5. Nonsignificant CAD 2019. 6. HTN LVEF 52% 2023. 7. COPD with bronchospastic component. 8. DM. 9. Gastric bypass with over 100 lb wt loss. 10. Dyslipidemia. 11. Tonsillectomy. SHx: Retired, no tobacco use, prior alcohol consumption, no caffeine intake. FHx: Father had Lung CA, mother had Cancer, Sister had GA/Breast CA. RoS: Positives per HPI, remainder reviewed and negative. PE: 110/80 p80 r18 Ht 175cm Wt 130kg BMI 42.4. CONSTITUTIONAL: Well-developed, well nourished, in no acute distress. HEAD: Normocephalic, atraumatic. EENT: Pupils round, reactive to light and accommodation. Extraoccular muscles intact. No ENT exudates. NECK: No jugular venous distention, no carotid bruits, no thyroid masses. LUNGS: Clear, normal respiratory excursion. COR: Apical impulse not appreciated. Single S1, S2, no S3, rub, click or murmur. INCINERATOR ATTENDANT-D site well-healed in left pectoral region. ABD: Bowel sounds present, soft, nontender, no masses or pulsations. EXTREMITIES: Pulses 2+ bilaterally, no edema. SKIN: No rash or chronic skin infection. LYMPH: No lymphadenopathy noted. NEURO: Alert and oriented to person place time, no gross focal motor deficit. IMPRESSION: 1. Recurrent Persistent Atrial Fibrillation, CHADSVASC= 5, NL LA size. 2. Ventricular Tachycardia. 3. Long QT interval. 4. 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 Over 1 yr battery left. Lt INCINERATOR ATTENDANT-D 12/20/18: Villagomez/valdez JARQUIN MP, 3369-40Q, #[id number]. RA Lead: [facility] 1688TC/52, #[id number] 04/11/11. RV Lead: [facility] 7122Q/65, #[id number] 04/11/11. LV Lead(cs): [facility] 1458Q/86, #[id number] 04/11/11. 5. Nonsignificant CAD [2020]. 6. HTN LVEF 52% 2023. 7. COPD with bronchospastic component. 8. DM. 9. Gastric bypass with over 100 lb wt loss. 10. Dyslipidemia. PLAN: CRYO PVAI ablation. We will perform EPS with 3D mapping (Bright.md), transeptal puncture for left atrial access, Intracardiac Echocardiography & Vascular Ultrasound, general anesthesia and IV anticoagulation. Findings reviewed with patient including risks of diagnoses. Proposed procedure and risksexplained. Questions answered. He agrees to proceed. Post-procedure he will have follow up visit 07/31/23 2:45pm. Lydia Kelly MD, [facility] pager [phone] Digitally Signed by LYDIA KELLY MD on 06/29/2023 05:37 PM [facility] [id number] Evaluation + Plan noteExtracted from: Title:H&P 06/08/23 Author:LYDIA KELLY MD D ate:06/05/23 HISTORY & PHYSICALPCP: Marciano Weaver MD CV: MD Ellen Patient: Lc Grubbs medical record# [id number] date of Admission: 06/08/23 CC: AFIB. HPI: 72 yr old male patient presenting for CRYO Pulmonary Vein Antral Isolation (PVAI) ablation for Recurrent Persistent Atrial Fibrillation. He was initially recommended for HYBRID AFIB Ablation due to severe LAE, but recent ECHO reports LA size normal, LVEF 52%. Nonsignificant CAD by cath 2019. INCINERATOR ATTENDANT-D Villagomez 12/20/18, Summer for VT. Baseline QT prolongation. Dyspnea with moderate exertion. He denies any angina, swelling, or lightheadedness. ALLERGIES: Avelox. MEDICATIONS: 1. Eliquis 5 mg twice daily, last dose 24 hours prior to procedure. 2. Aspirin 81 mg daily. 3. Carvedilol 12.5 mg twice daily. 4. Allopurinol 100 mg daily. 5. Atorvastatin 20 mg daily. 6. Budesonide/formoterol inhaled twice daily. 7. Bupropion 150 mg twice daily. 8. Vitamin B12 1000 mcg daily. 9. Dapagliflozin 10 mg daily. 10. Trulicity injection 0.5 mL subcutaneous weekly. 11. Famotidine 20 mg daily. 12. Furosemide 40 mg daily. 13. Glucagon 0.5 mg subcu as needed low blood sugar. 14. Ipratropium 0.03% nasal spray daily. 15. Ketoconazole topical cream to legs. 16. Montelukast 10 mg daily. 17. Multivitamins with minerals daily. 18. Potassium citrate 5 mEq PC at bedtime. 19. Tamsulosin 0.4 mg daily. 20. Tramadol 50 mg twice daily as needed pain. PMH: 1. Recurrent Persistent Atrial Fibrillation, CHADSVASC= 5, NL LA size. 2. Ventricular Tachycardia. 3. Long QT interval. 4. 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 Over 1 yr battery left. Lt INCINERATOR ATTENDANT-D 12/20/18: Villagomez/sj QUADRA ALBANIAURA MP, 3369-40Q, #[id number]. RA Lead: sjm 1688TC/52, #[id number] 04/11/11. RV Lead: sjm 7122Q/65, #[id number] 04/11/11. LV Lead(cs): sjm 1458Q/86, #[id number] 04/11/11. 5. Nonsignificant CAD 2019. 6. HTN LVEF 52% 2023. 7. COPD with bronchospastic component. 8. DM. 9. Gastric bypass with over 100 lb wt loss. 10. Dyslipidemia. 11. Tonsillectomy. SHx: Retired, no tobacco use, prior alcohol consumption, no caffeine intake. FHx: Father had Lung CA, mother had Cancer, Sister had GA/Breast CA. RoS: Positives per HPI, remainder reviewed and negative. PE: 110/70 p80 r18 Ht 175cm Wt 130kg BMI 42.4. CONSTITUTIONAL: Well-developed, well nourished, in no acute distress. HEAD: Normocephalic, atraumatic. EENT: Pupils round, reactive to light and accommodation. Extraoccular muscles intact. No ENT exudates. NECK: No jugular venous distention, no carotid bruits, no thyroid masses. LUNGS: Clear, normal respiratory excursion. COR: Apical impulse not appreciated. Single S1, S2, no S3, rub, click or murmur. INCINERATOR ATTENDANT-D site well-healed in left pectoral region. ABD: Bowel sounds present, soft, nontender, no masses or pulsations. EXTREMITIES: Pulses 2+ bilaterally, no edema. SKIN: No rash or chronic skin infection. LYMPH: No lymphadenopathy noted. NEURO: Alert and oriented to person place time, no gross focal motor deficit. IMPRESSION: 1. Recurrent Persistent Atrial Fibrillation, CHADSVASC= 5, NL LA size. 2. Ventricular Tachycardia. 3. Long QT interval. 4. 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 Over 1 yr battery left. Lt INCINERATOR ATTENDANT-D 12/20/18: Villagomez/sjm NOELLE JARQUIN MP, 3369-40Q, #[id number]. RA Lead: sjm 1688TC/52, #[id number] 04/11/11. RV Lead: sjm 7122Q/65, #[id number] 04/11/11. LV Lead(cs): sjm 1458Q/86, #[id number] 04/11/11. 5. Nonsignificant CAD [2019]. 6. HTN LVEF 52% 2023. 7. COPD with bronchospastic component. 8. DM. 9. Gastric bypass with over 100 lb wt loss. 10. Dyslipidemia. PLAN: CRYO PVAI ablation. We will perform EPS with 3D mapping (Villagomez), transeptal puncture for left atrial access, Intracardiac Echocardiography & Vascular Ultrasound, general anesthesia and IV anticoagulation. Findings reviewed with patient including risks of diagnoses. Proposed procedure and risks explained. Questions answered. He agrees to proceed. Post-procedure he will have follow up visit 07/31/23 2:45pm. Lydia Kelly MD, [facility] pager [phone] Addendum by LIV KELLY MD on June 08, 2023 9:54 EDT Lc Grubbs presents for CRYO PVAI abla tion of Persistent Atrial Fibrillation this morning (June 07). He took his last dose Eliquis 06/03 (that is 96 hours prior to procedure). This is not my recommendation; the risk for clot and stroke with catheter manipulation in the left atrium is too great. The procedure has to be cancelled and rescheduled, with the last dose of Eliquis 24 hours prior to procedure. Future Appointments Appointment Date:06/13/2023 08:45:00 AM Scheduled Provider: Location:[facility] Appointment Type:CV Remote Procedure Appointment Date:07/31/2023 02:45:00 PM Scheduled Provider: Location:[facility] Appointment Type:CV OV Appointment Date:01/29/2024 03:30:00 PM Scheduled Provider: Location:[facility] Appointment Type:CV OV Diagnostic Tests Pending * Complete Blood Count 06/08/23 [facility] 05-02-2024 Hospital Discharge instructions Patient Education 06/08/2023 09:50:02 Cardiac SD - Discharge Instructions for Cancelled Procedures 09/2021 (CUSTOM) DISCHARGE INSTRUCTIONS FOR CANCELLED PROCEDURES DIET Resume your regular diet that you had before your procedure unless otherwise instructed. ACTIVITY Resume your previous activities as tolerated unless otherwise instructed. IV DRESSING/WOUND CARE If you have had an IV inserted, you can remove the gauze dressing in 1 hour. CALL YOUR DOCTOR IF: You develop any new redness, swelling, or drainage around your IV insertion site. You have a temperature of 101 degrees or higher. PAIN Follow your doctors' instructions for pain management. You can take your usual jzfp-jff-njqjpci pain medication unless otherwise directed. HAND WASHING Always wash your hands before and after touching the IV insertion/dressing site. Frequent hand washing is the best way to prevent the spread of infection. FOLLOW-UP Keep your follow-up appointment. If an appointment has not been made for you, call your doctor's office to schedule. If you have any concerns before your appointment, call your doctor's office. [facility] 05-02-2024 History and physical note HISTORY & PHYSICALPCP: Marciano Weaver MD CV: MD Ellen Patient: Lc Grubbs medical record# [id number] date of Admission: 06/08/23 CC: AFIB. HPI: 72 yr old male patient presenting for CRYO Pulmonary Vein Antral Isolation (PVAI) ablation for Recurrent Persistent Atrial Fibrillation. He was initially recommended for HYBRID AFIB Ablation due to severe LAE, but recent ECHO reports LA size normal, LVEF 52%. Nonsignificant CAD by cath 2020. INCINERATOR ATTENDANT-D Villagomez 12/20/18, Summer for VT. Baseline QT prolongation. Dyspnea with moderate exertion. He deniesany angina, swelling, or lightheadedness. ALLERGIES: Avelox. MEDICATIONS: 1. Eliquis 5 mg twice daily, last dose 24 hours prior to procedure. 2. Aspirin 81 mg daily. 3. Carvedilol 12.5 mg twice daily. 4. Allopurinol 100 mg daily. 5. Atorvastatin 20 mg daily. 6. Budesonide/formoterol inhaled twice daily. 7. Bupropion 150 mg twice daily. 8. Vitamin B12 1000 mcg daily. 9. Dapagliflozin 10 mg daily. 10. Trulicity injection 0.5 mL subcutaneous weekly. 11. Famotidine 20 mg daily. 12. Furosemide 40 mg daily. 13. Glucagon 0.5 mg subcu as needed low blood sugar. 14. Ipratropium 0.03% nasal spray daily. 15. Ketoconazole topical cream to legs. 16. Montelukast 10 mg daily. 17. Multivitamins with minerals daily. 18. Potassium citrate 5 mEq PC at bedtime. 19. Tamsulosin 0.4 mg daily. 20. Tramadol 50 mg twice daily as needed pain. PMH: 1. Recurrent Persistent Atrial Fibrillation, CHADSVASC= 5, NL LA size. 2. Ventricular Tachycardia. 3. Long QT interval. 4. 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 Over 1 yr battery left. Lt INCINERATOR ATTENDANT-D 12/20/18: Villagomez/[facility] NOELLE JARQUIN , 3369-40Q, #[id number]. RA Lead: [facility] 1688TC/52, #[id number] 04/11/11. RV Lead: [facility] 7122Q/65, #[id number] 04/11/11. LV Lead(cs): [facility] 1458Q/86, #[id number] 04/11/11. 5. Nonsignificant CAD 2019. 6. HTN LVEF 52% 2023. 7. COPD with bronchospastic component. 8. DM. 9. Gastric bypass with over 100 lb wt loss. 10. Dyslipidemia. 11. Tonsillectomy. SHx: Retired, no tobacco use, prior alcohol consumption, no caffeine intake. FHx: Father had Lung CA, mother had Cancer, Sister had GA/Breast CA. RoS: Positives per HPI, remainder reviewed and negative. PE: 110/70 p80 r18 Ht 175cm Wt 130kg BMI 42.4. CONSTITUTIONAL: Well-developed, well nourished, in no acute distress. HEAD: Normocephalic, atraumatic. EENT: Pupils round, reactive to light and accommodation. Extraoccular muscles intact. No ENT exudates. NECK: No jugular venous distention, no carotid bruits, no thyroid masses. LUNGS: Clear, normal respiratory excursion. COR: Apical impulse not appreciated. Single S1, S2, no S3, rub, click or murmur. INCINERATOR ATTENDANT-D site well-healed in left pectoral region. ABD: Bowel sounds present, soft, nontender, no masses or pulsations. EXTREMITIES: Pulses 2+ bilaterally, no edema. SKIN: No rash or chronic skin infection. LYMPH: No lymphadenopathy noted. NEURO: Alert and oriented to person place time, no gross focal motor deficit. IMPRESSION: 1. Recurrent Persistent Atrial Fibrillation, CHADSVASC= 5, NL LA size. 2. Ventricular Tachycardia. 3. Long QT interval. 4. 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 Over 1 yr battery left. Lt INCINERATOR ATTENDANT-D 12/20/18: Villagomez/[facility] MP, 3369-40Q, #[id number]. RA Lead: sjm 1688TC/52, #[id number] 04/11/11. RV Lead: sjm 7122Q/65, #[id number] 04/11/11. LV Lead(cs): sjm 1458Q/86, #[id number] 04/11/11. 5. Nonsignificant CAD [2020]. 6. HTN LVEF 52% 2023. 7. COPD with bronchospastic component. 8. DM. 9. Gastric bypass with over 100 lb wt loss. 10. Dyslipidemia. PLAN: CRYO PVAI ablation. We will perform EPS with 3D mapping (Villagomez), transeptal puncture for left atrial access, Intracardiac Echocardiography & Vascular Ultrasound, general anesthesia and IV anticoagulation. Findings reviewed with patient including risks of diagnoses. Proposed procedure and risksexplained. Questions answered. He agrees to proceed. Post-procedure he will have follow up visit 07/31/23 2:45pm. Lydia Kelly MD, [facility], [facility] pager [phone] Digitally Signed by LYDIA KELLY MD on 06/05/2023 07:48 AM [id number] Summary of episode note Discharge Instructions Thank you for allowing [facility] to assist you with your healthcare needs. The following is importantdischarge information regarding your hospital visit. Your Care Team MARCIANO WEAVER MD What to do next Scheduled Follow-Up Appointments Appointment Type When Where Contact InformationCV Remote Procedure HM 06/13/2023 08:45 AM EDT [facility] CV OV 07/31/2023 02:45 PM EDT [facility] CV OV 01/29/2024 03:30 PM EST [facility] Allergies Avelox (Hives) Medications Please ask your primary doctor or pharmacist before taking any other medication not listed, including over the counter drugs, herbal medications, vitamins and or supplements as they may interact withyo home medications. What How Much When Instructions Last Dose Unchanged allopurinol (allopurinol 100 mg oral tablet) 1 tab(s) by mouth Once a day Unchanged apixaban (Eliquis 5 mg oral tablet) 1 tab(s) by mouth Two (2) times a day Unchanged aspirin (aspirin 81 mg oral delayed release tablet) 1 tab(s) by mouth Every day Unchanged atorvastatin (atorvastatin 20 mg oral tablet) 1 tab(s) by mouth Every day Unchanged budesonide/ formoterol/ glycopyrrolate (Breztri Aerosphere 160 mcg-9 mcg-4.8 mcg/ inh inhalation aerosol) by inhalation Two (2) times a day Unchanged buPROPion (buPROPion 150 mg/ 24 hours (XL) oral tablet, extended release) 1 tab(s) by mouth Two (2) times a day Unchanged carvedilol (carvedilol 12.5 mg oral tablet) 1 tab(s) by mouth Twice daily with meals Unchanged cyanocobalamin (Vitamin B12 1000 mcg oral tablet) 1 tab(s) by mouth Every day Unchanged dapagliflozin (Farxiga 10 mg oral tablet) 10 Milligram by mouth Once a day (in the morning) Unchanged dulaglutide (Trulicity Pen 3 mg/ 0.5 mL subcutaneous solution) INJECT 0.5 ML UNDER THE SKIN WEEKLY Unchanged famotidine (famotidine 20 mg oral tablet) 1 tab(s) by mouth Once a day Unchanged furosemide (Lasix 40 mg oral tablet) 1 tab(s) by mouth Every day Unchanged glucagon (Gvoke HypoPen Two Pack 1 mg/ 0.2 mL subcutaneous solution) 0.1 Milliliter Subcutaneous As Directed as needed for for low blood sugar Unchanged ipratropium nasal (ipratropium (0.03%) nasal 21 mcg/ spray (Atrovent Nasal)) 2 spray(s) in the nose Once a day Unchanged ketoconazole topical (ketoconazole 2% topical cream) See instructions Topical qDay to legs Unchanged Misc Medication (ONETOUCH ULTRA BLUE TEST STRP) TEST TWICE DAILY DIRECTED Unchanged montelukast (montelukast 10 mg oral tablet) 1 tab(s) by mouth Once a day Unchanged multivitamin with minerals (Flintstones Complete Chewable) 1 tab(s) Chewed Once a day Unchanged potassium citrate (potassium citrate 5 mEq oral tablet, extended release) 1 tab(s) by mouth After meals & at bedtime Unchanged tamsulosin (tamsulosin 0.4 mg oral capsule) 1 cap by mouth Once a day Unchanged traMADol (traMADol 50 mg oral tablet) 1 tab(s) by mouth Two (2) times a day as needed for as needed for pain Please take this list to your next doctor s visit. Bring all medications you take, including over the counter medications, herbals and other supplements with you to your doctor s visit. Patients and families are reminded to discard old lists and to update any records with all medication providers or retail pharmacies. Education Materials DISCHARGE INSTRUCTIONS FOR CANCELLED PROCEDURES DIET Resume your regular diet that you had before your procedure unless otherwise instructed. ACTIVITY Resume your previous activities as tolerated unless otherwise instructed. IV DRESSING/WOUND CARE If you have had an IV inserted, you can remove the gauze dressing in 1 hour. CALL YOUR DOCTOR IF: You develop any new redness, swelling, or drainage around your IV insertion site. You have a temperature of 101 degrees or higher. PAIN Follow your doctors' instructions for pain management. You can take your usual gpfd-oxn-nojsmkp pain medication unless otherwise directed. HAND WASHING Always wash your hands before and after touching the IV insertion/dressing site. Frequent hand washing is the best way to prevent the spread of infection. FOLLOW-UP Keep your follow-up appointment. If an appointment has not been made for you, call your doctor's office to schedule. If you have any concerns before your appointment, call your doctor's office. Additional Information VACCINATE! IT SAVES LIVES! Members of the community who have not yet received the COVID-19 vaccine and would like to receive it can visit one of [facility] vaccine clinics. There are many vaccine clinic locations within the [facility]. For locations and available times, please visit [email or web address].[place].gov/. It is important to note that some COVID mobile vaccine clinics are held outdoors and may be canceled in rainy or stormy conditions. To learn more about pediatric vaccinations (ages 5-11), we invite you to visit the [facility] webpage. [email or web address]/[email or web address]-[email or web address] [email or web address].htmlTo learn more about the COVID-19 vaccine, we invite you to visit the CDC website for a list of frequently asked questions.https://www.cdc.gov/coronavirus/2019-ncov/vaccines/faq.html [employer] Patient Portal Access Instructions: Stay connected with your healthcare team and access your personal medical information anytime with the [facility] Patient Portal. Please follow the directions below to create your [facility] account: 1.Access the email account you provided upon registration to the hospital/physician office.2.Look for an invitation email from [facility].3.Open the email and access the invitation link: AcceptInvitation to [employer].4.Fill in the required ramirez to create your account. To access your account, visit [email or web address]. Click the blue button labeled Access Patient Portal and then log in with the username and password that you created in the steps above. You will be able to view your test results, lab results, a summary of your visits, upcoming appointments and more. There is also a convenient messaging option where you can send secure messages to your p rovider. In addition, you will have the ability to download any documents or summaries to your computer and/or send the information securely to a physician. Remember that your healthcare information is confidential, so carefully consider who you will allowto register on the [employer] Patient Portal for access to your information. You can also access the [facility] Patient Portal on the [facility] isabel. Simply click on Patient Portal and then log into your account. If you would like to receive a full copy of your medical records, please contact the [facility] Medical Records Department by calling [phone], Monday through Monday between 8 a.m. and 4:30 p.m. HOW TO SAFELY DISPOSE OF PRESCRIPTION MEDICATIONS Please use one of the following methods to safely dispose of your unused medications. 1.Use a drug disposal kit: the drug disposal pouch allows you to safely discard your old and unuseddrugs. Ask your nurse to give you one when you are discharged.2.Visit a local take-back location: Many local pharmacies and police departments have programs that collect old and unwanted prescriptiondrugs. Call your local pharmacy or go to http://Todo[employer] TV.Airizu/7L6Pk5a to find one close to you.3.Make use of household items: Use cat litter or old coffee grounds to dispose medications if other options arenot available. Mix your drugs with these household products, seal them in an airtight container andthrow it into the garbage. Call [facility]: [phone] to be sure your drugs can be disposed of in this way. Some medicines may require a different approach.4.Never flush your medications down the toilet. IF YOU HAVE BEEN PRESCRIBED AN OPIOID FOR PAIN If you have been prescribed an opioid (such as hydrocodone, oxycodone or morphine), it is critical to understand the possible side effects and risks of opioid pain medications. Even when taken as directed, opioids can have several side effects including: Tolerance, meaning you might need to take more of a medication for the same pain relief. Nausea, vomiting and/or constipation. Sleepiness, dizziness, dry mouth, confusion, depression or itching. Physical dependence, meaning you have withdrawal symptoms when a medication is stopped, can develop within a few days. KNOW YOUR RESPONSIBILITIES It is important to know exactly how much and how often to take the opioid pain medications you are prescribed. Never take opioids in higher amounts or more often than prescribed. Do not combine opioids with alcohol or other drugs that cause drowsiness, such as benzodiazepines, also known as benzos, including diazepam and alprazolam, muscle relaxants or sleep aids. Never sell or share prescription opioids. This is illegal. Store opioids in a secure place and out of reach of others (including children, family, friends and visitors). The last page of this document has been signed and retained as a CHART COPY. Signatures Patient Education Materials Cardiac SD - Discharge Instructions for Cancelled Procedures 09/2021 (CUSTOM) Medication Leaflets My discharge plan and instructions have been reviewed and explained to me and I,LC GRUBBS understand my current condition and have read and understand these discharge instructions. I have received a written copy of the plan/instructions. If I have questions, I am aware that I should contact my doctor. Patient/Contract Specialist Signature: Date/Time: Relationship to Patient: Witness Name/Signature: Date/Time: [facility] [id number] History and physical note HISTORY & PHYSICALPCP: Marciano Weaver MD CV: MD Ellen Patient: Lc Grubbs medical record# [id number] date of Admission: 06/08/23 CC: AFIB. HPI: 72 yr old male patient presenting for CRYO Pulmonary Vein Antral Isolation (PVAI) ablation for Recurrent Persistent Atrial Fibrillation. He was initially recommended for HYBRID AFIB Ablation due to severe LAE, but recent ECHO reports LA size normal, LVEF 52%. Nonsignificant CAD by cath 2020. INCINERATOR ATTENDANT-D Villagomez 12/20/18, Summer for VT. Baseline QT prolongation. Dyspnea with moderate exertion. He deniesany angina, swelling, or lightheadedness. ALLERGIES: Avelox. MEDICATIONS: 1. Eliquis 5 mg twice daily, last dose 24 hours prior to procedure. 2. Aspirin 81 mg daily. 3. Carvedilol 12.5 mg twice daily. 4. Allopurinol 100 mg daily. 5. Atorvastatin 20 mg daily. 6. Budesonide/formoterol inhaled twice daily. 7. Bupropion 150 mg twice daily. 8. Vitamin B12 1000 mcg daily. 9. Dapagliflozin 10 mg daily. 10. Trulicity injection 0.5 mL subcutaneous weekly. 11. Famotidine 20 mg daily. 12. Furosemide 40 mg daily. 13. Glucagon 0.5 mg subcu as needed low blood sugar. 14. Ipratropium 0.03% nasal spray daily. 15. Ketoconazole topical cream to legs. 16. Montelukast 10 mg daily. 17. Multivitamins with minerals daily. 18. Potassium citrate 5 mEq PC at bedtime. 19. Tamsulosin 0.4 mg daily. 20. Tramadol 50 mg twice daily as needed pain. PMH: 1. Recurrent Persistent Atrial Fibrillation, CHADSVASC= 5, NL LA size. 2. Ventricular Tachycardia. 3. Long QT interval. 4. 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 Over 1 yr battery left. 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 RA Lead: [facility] 1688TC/52, #[id number] 04/11/11. RV Lead: sjm 7122Q/65, #[id number] 04/11/11. LV Lead(cs): sj 1458Q/86, #[id number] 04/11/11. 5. Nonsignificant CAD 2019. 6. HTN LVEF 52% 2023. 7. COPD with bronchospastic component. 8. DM. 9. Gastric bypass with over 100 lb wt loss. 10. Dyslipidemia. 11. Tonsillectomy. SHx: Retired, no tobacco use, prior alcohol consumption, no caffeine intake. FHx: Father had Lung CA, mother had Cancer, Sister had GA/Breast CA. RoS: Positives per HPI, remainder reviewed and negative. PE: 110/70 p80 r18 Ht 175cm Wt 130kg BMI 42.4. CONSTITUTIONAL: Well-developed, well nourished, in no acute distress. HEAD: Normocephalic, atraumatic. EENT: Pupils round, reactive to light and accommodation. Extraoccular muscles intact. No ENT exudates. NECK: No jugular venous distention, no carotid bruits, no thyroid masses. LUNGS: Clear, normal respiratory excursion. COR: Apical impulse not appreciated. Single S1, S2, no S3, rub, click or murmur. INCINERATOR ATTENDANT-D site well-healed in left pectoral region. ABD: Bowel sounds present, soft, nontender, no masses or pulsations. EXTREMITIES: Pulses 2+ bilaterally, no edema. SKIN: No rash or chronic skin infection. LYMPH: No lymphadenopathy noted. NEURO: Alert and oriented to person place time, no gross focal motor deficit. IMPRESSION: 1. Recurrent Persistent Atrial Fibrillation, CHADSVASC= 5, NL LA size. 2. Ventricular Tachycardia. 3. Long QT interval. 4. 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 Over 1 yr battery left. 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 RA Lead: sjm 1688TC/52, #[id number] 04/11/11. RV Lead: sjm 7122Q/65, #[id number] 04/11/11. LV Lead(cs): sjm 1458Q/86, #[id number] 04/11/11. 5. Nonsignificant CAD [2019]. 6. HTN LVEF 52% 2023. 7. COPD with bronchospastic component. 8. DM. 9. Gastric bypass with over 100 lb wt loss. 10. Dyslipidemia. PLAN: CRYO PVAI ablation. We will perform EPS with 3D mapping (Villagomez), transeptal puncture for left atrial access, Intracardiac Echocardiography & Vascular Ultrasound, general anesthesia and IV anticoagulation. Findings reviewed with patient including risks of diagnoses. Proposed procedure and risksexplained. Questions answered. He agrees to proceed. Post-procedure he will have follow up visit 07/31/23 2:45pm. Lydia Kelly MD, [facility], [facility] pager [phone] Digitally Signed by LYDIA KELLY MD on 06/05/2023 07:48 AM [facility] [id number] Note* Exam Date Time Procedure Performing Provider Status 04/05/23 2:05 PM Echocardiogram, Adult - CV Auth (Verified) [facility] 08-25-2023 Miscellaneous Notes* Telephone Encounter - Samreen Stewart - 09/30/2022 7:48 AM EDT Pharmacy sent a uberall message requesting the following refill. Requested Prescriptions Pending Prescriptions Disp Refills metFORMIN ER (GLUCOPHAGE XR) 500 mg 24 hr tablet [Pharmacy Med Name: METFORMIN HCL ER 500 MG TABLET] 270 tablet 0 Sig: TAKE 3 TABLETS BY MOUTH ONCE DAILY. PATIENT MAY TAKE 2 PILLS WITH BREAKFAST AND ONE WITH DINNER Next Appointment: Visit date not found Patient Phone numbers: [phone] (home) Request is for script(s) to be escript to pharmacy. Samreen Stewart [facility]21-2023 Miscellaneous Notes* Telephone Encounter - Eri ArguetaNurse - 05/27/2022 3:58 PM EDT No Show Documentation Lc Grubbs no showed for an appointment on 05/27/22 with Belgica Pineda APRN.TABBY at 3:30pm. He was scheduled for 6 Mo F/U . I called and spoke with the patient regarding his missed appointment. Lc stated the reason that he missed his appointment was because n/a . Resources discussed/offered to patient: n/a No show determined to be fault of patient: Yes This is the patients first no show in the last 12 months. Patient was rescheduled for n/a. Letter mailed : Yes Is this the Third or Fourth No Show? No Eri Bond May 27, 2022 3:58 PM documented in this encounterK[facility]03-14-2023 Miscellaneous Notes* Telephone Encounter - Heidy Murray MA - 04/19/2022 12:55 PM EDT Images from the original note were not included. Belgica Pineda APRN.ENVIRONMENTAL SCIENCE TECHNICIAN You 1 hour ago (11:50 AM) Approved and patient needs follow up with COMBAT CONTROL or Doc please * Telephone Encounter - Heidy Murray MA - 04/19/2022 11:38 AM EDT Pharmacy requesting the following refill. Requested Prescriptions Pending Prescriptions Disp Refills metFORMIN ER (GLUCOPHAGE XR) 500 mg 24 hr tablet [Pharmacy Med Name: METFORMIN HCL ER 500 MG TABLET] 270 tablet 0 Sig: TAKE 3 TABLETS BY MOUTH ONCE DAILY. PATIENT MAY TAKE 2 PILLS WITH BREAKFAST AND ONE WITH DINNER Next Appointment: Visit date not found Patient Phone numbers: [phone] (home) Request is for script(s) to be escript to pharmacy. Heidy Murray MA documented in this encounterK[facility]03-10-2023 Miscellaneous Notes* Telephone Encounter - Nora Bravo - 04/15/2022 11:23 AM EST PT Pati call LVM @ 10:49 advised she is CN her appt do to she is sick. And also her appt for today. Do to he doesn't like to drive into [facility] in the weather alone. 2:00pm appt W/ Dona documented in this encounterK[facility]03-03-2023 Miscellaneous Notes* Telephone Encounter - Heidy Murray MA - 04/08/2022 1:38 PM EST Images from the original note were not included. Belgica Pineda, CHON.ENVIRONMENTAL SCIENCE TECHNICIAN You 3 hours ago (10:06 AM) Approved and patient needs follow up appt. Please schedule with either me or the docs. thanks * Telephone Encounter - Heidy Murray MA - 04/07/2022 12:57 PM EST Pharmacy requesting the following refill. Requested Prescriptions Pending Prescriptions Disp Refills TRULICITY 1.5 mg/0.5 mL pen injector [Pharmacy Med Name: TRULICITY 1.5 MG/0.5 ML PEN] 1 Sig: INJECT 1.5 MG SUBCUTANEOUSLY ONE TIME A WEEK. Next Appointment: Visit date not found Patient Phone numbers: [phone] (home) Request is for script(s) to be escript to pharmacy. Heidy Murray MA documented in this encounterK[facility]01-03-2023 Miscellaneous Notes* Telephone Encounter - Heidy Murray MA - 02/08/2022 12:44 PM EST Pharmacy requesting the following refill. Requested Prescriptions Pending Prescriptions Disp Refills TRULICITY 1.5 mg/0.5 mL pen injector [Pharmacy Med Name: TRULICITY 1.5 MG/0.5 ML PEN] 1 Sig: INJECT 1.5 MG SUBCUTANEOUSLY ONE TIME A WEEK. Next Appointment: Visit date not found Patient Phone numbers: [phone] (home) Request is for script(s) to be escript to pharmacy. Heidy Murray MA [facility] Miscellaneous Notes* Telephone Encounter - Suzi Jordan Ma - 01/21/2022 9:42 AM EST Pharmacy sent a uberall message requesting the following refill. Requested Prescriptions Pending Prescriptions Disp Refills metFORMIN ER (GLUCOPHAGE XR) 500 mg 24 hr tablet [Pharmacy Med Name: METFORMIN HCL ER 500 MG TABLET] 270 tablet 0 Sig: TAKE 3 TABLETS BY MOUTH ONCE DAILY. PATIENT MAY TAKE 2 PILLS WITH BREAKFAST AND ONE WITH DINNER Next Appointment: Visit date not found Patient Phone numbers: [phone] (home) Request is for script(s) to be escript to pharmacy. Suzi Jordan [facility] Miscellaneous Notes* Telephone Encounter - Heidy Murray MA - 12/17/2021 1:51 PM EST Spoke with patients regarding refill request. She states patient has been doing well on the current dose of Trulicity and has not had any side effects. Heidy Murray MA documented in this [facility] Instructions* Patient Instructions* Belgica Pineda GATEHOUSE ATTENDANT.ENVIRONMENTAL SCIENCE TECHNICIAN - 10/26/2021 1:34 PM EDT Dear Mr. Grubbs: It was a pleasure to see your today; Here are today's highlights: Nutrition: - work on more consistent meal time 60 grams protein 60 ounces water Try cut out the spam Activity: try walk as you can Medications: Continue metformin 1500 mg xr take 2 with lunch and one with dinner Trulicity 0.75 mg subcutaneous weekly injection DULAGLUTIDE (Trulicity) - The medication comes in a once weekly, single-dose pen. - The most common adverse reactions reported in ?5% of Trulicity-treated patients in trials were nausea, diarrhea, vomiting, abdominal pain, decreased appetite, dyspepsia, and fatigue.The side effects are usually transient in nature. Please reach out for assistance in managing these symptoms if they persist and are bothersome. Side effects typically occur 1-3 days after the injection, when starting the medication, and with dose increases. With this in mind consider timing the injection like on a Monday night, so if you have side effects they will occur on the weekend versus while you are at work. -- We should have further discussions about taking this medication if you have a history of a pancreatitis, a disease called MEN2, or you or a family member has had medullary thyroid cancer. -- please inform me immediately if you are or plan to become . -- Although rare, there is an increased risk for inflammation of the pancreas (pancreatitis), gallbladder problems (including gallstones), low blood sugar (typically when combined with a medication called a sulfonurea), acute kidney injury (bwith nausea/vomiting and resulting dehydration), diabeticretinopathy (damage to the eye's retina), increased heart rate, and suicidal behavior or thinking. -- Please reach out if in-person pen training is needed. -- Keep medication refrigerated. It is good for 2 weeks out of the refrigerator as long as it had not been in high temperatures or direct sunlight. Instructions for Use Trulicity Patient Education How to use the pen: What is Trulicity & Easy To Use Pen Trulicity (dulaglutide) Full medication guide: Trulicity What Is Trulicity? Trulicity is a brand-name prescription drug that belongs to the drug class glucagon-like peptide-1 (GLP-1) agonists. Trulicity is available as a liquid solution self-injectable medication. It is a pre-filled, disposable, single-use injection pen. Can Trulicity Be Used for Weight Loss? While Trulicity is not a weight loss drug, Similar drugs in the same class of medication called GLP1's have recently been approved for weight loss by the FDA. These drugs are named Wegovy and Saxenda. The medication will be delivered as a once-weekly shot, in combination with diet and exercise. How Does Trulicity for Weight Loss Work? Trulicity is in a drug class called GLP-1 agonists that are used to control blood sugar, and can betaken to assist in weight loss. This drug works by - Slowing down how fast your stomach empties food - Blocking hormones that cause the liver to release sugar - Together, these combined actions cause the feeling of hunger to decrease, which leads to eating less, and finally, weight loss. How Long Does It Take for Trulicity to Work for Weight Loss? Results vary from person to person with Ozempic. Some people may have a quick initial weight drop; for others, it may take more time. Trulicity has been shown to help people lose weight in a safe, long-term, and healthy way. A [facility] doctor will help you with dosages of Trulicity for weight lossand might recommend slowly increasing dosage over time to maximize weight loss. The speed at which you lose weight is largely influenced by the amount of lifestyle changes you areable to make: there is no magic weight loss drug on the market. It s important to remember that weight loss takes time, and you ll have the best results if you use Trulicity in combination with exercise and a healthy diet. Trulicity for Weight Loss Dulaglutide: Patient drug information Access [employer] Online for additional drug information, tools, and databases. Copyright 5650-7270 [employer]. All rights reserved. (For additional information see Dulaglutide: Drug information) You must carefully read the Consumer Information Use and Disclaimer below in order to understand and correctly use this information. Brand Names: [place] Trulicity Brand Names: Gloria Trulicity Warning Drugs like this one have been shown to cause thyroid cancer in some animals. It is not known if this drug may cause thyroid cancer in humans. Call your doctor right away if you have a neck mass, trouble breathing, trouble swallowing, or hoarseness that will not go away. Do not use this drug if you have a health problem called Multiple Endocrine Neoplasia syndrome type2 (MEN 2), or if you or a family member have had thyroid cancer. What is this drug used for? It is used to lower blood sugar in patients with high blood sugar (diabetes). It is used to lower the chance of heart attack, stroke, and in some people. What do I need to tell my doctor BEFORE I take this drug? If you are allergic to this drug; any part of this drug; or any other drugs, foods, or substances. Tell your doctor about the allergy and what signs you had. If you have any of these health problems: Type 1 diabetes or stomach or bowel problems. If you have ever had pancreatitis. If the patient is a child. Do not give this drug to a child. This is not a list of all drugs or health problems that interact with this drug. Tell your doctor and pharmacist about all of your drugs (prescription or OTC, natural products, vitamins) and health problems. You must check to make sure that it is safe for you to take this drug with all of your drugs and health problems. Do not start, stop, or change the dose of any drug withoutchecking with your doctor. What are some things I need to know or do while I take this drug? Tell all of your health care providers that you take this drug. This includes your doctors, nurses,pharmacists, and dentists. Follow the diet and workout plan that your doctor told you about. Wear disease medical alert ID (identification). Check your blood sugar as you have been told by your doctor. Have blood work checked as you have been told by the doctor. Talk with the doctor. Do not drive if your blood sugar has been low. There is a greater chance of you having a crash. It may be harder to control blood sugar during times of stress such as fever, infection, injury, orsurgery. A change in physical activity, exercise, or diet may also affect blood sugar. Kidney problems have happened with drugs like this one. Sometimes, kidney problems have needed to be treated in the hospital. Dialysis has also been needed. Talk with your doctor. Tell your doctor if you have upset stomach, throwing up, diarrhea, or too much sweating. Losing toomuch fluid may raise your chance of kidney problems. If you are dehydrated, talk with your doctor. This drug may prevent other drugs taken by mouth from getting into the body. If you take other drugs by mouth, you may need to take them at some other time than this drug. Talk with your doctor. Do not share pen or cartridge devices with another person even if the needle has been changed. Sharing these devices may pass infections from one person to another. This includes infections you may not know you have. Tell your doctor if you are , plan on getting , or are breast- feeding. You will need to talk about the benefits and risks to you and the baby. What are some side effects that I need to call my doctor about right away? WARNING/CAUTION: Even though it may be rare, some people may have very bad and sometimes deadly side effects when taking a drug. Tell your doctor or get medical help right away if you have any of thefollowing signs or symptoms that may be related to a very bad side effect: Signs of an allergic reaction, like rash; hives; itching; red, swollen, blistered, or peeling skin with or without fever; wheezing; tightness in the chest or throat; trouble breathing, swallowing, ortalking; unusual hoarseness; or swelling of the mouth, face, lips, tongue, or throat. Signs of a pancreas problem (pancreatitis) like very bad stomach pain, very bad back pain, or very bad upset stomach or throwing up. Signs of kidney problems like unable to pass urine, change in how much urine is passed, blood in the urine, or a big weight gain. Change in eyesight. Low blood sugar can happen. The chance may be raised when this drug is used with other drugs for diabetes. Signs may be dizziness, headache, feeling sleepy or weak, shaking, fast heartbeat, confusion, hunger, or sweating. Call your doctor right away if you have any of these signs. Follow what you have been told to do for low blood sugar. This may include taking glucose tablets, liquid glucose, or some fruit juices. What are some other side effects of this drug? All drugs may cause side effects. However, many people have no side effects or only have minor sideeffects. Call your doctor or get medical help if any of these side effects or any other side effects bother you or do not go away: Not hungry. Feeling tired or weak. It is common to have diarrhea, upset stomach, throwing up, or stomach pain with this drug. Call your doctor if any of these side effects get very bad, bother you, or do not go away. These are not all of the side effects that may occur. If you have questions about side effects, call your doctor. Call your doctor for medical advice about side effects. You may report side effects to your national health agency. How is this drug best taken? Use this drug as ordered by your doctor. Read all information given to you. Follow all instructionsclosely. It is given as a shot into the fatty part of the skin on the top of the thigh, belly area, or upperarm. If you will be giving yourself the shot, your doctor or nurse will teach you how to give the shot. Be sure you know how to use this drug. Read the instructions for use that come with this drug. If there are no instructions for use or you have any questions about how to use this drug, talk with thedoctor or pharmacist. Take with or without food. Drink lots of noncaffeine liquids unless told to drink less liquid by your doctor. Take the same day each week. Do not use if the solution is cloudy, leaking, or has particles. Do not use if solution changes color. Wash your hands before and after use. Move site where you give the shot each time. If you are also using insulin, you may inject this drug and the insulin in the same area of the body but not right next to each other. Do not mix this drug in the same syringe with insulin. Keep taking this drug as you have been told by your doctor or other health care provider, even if you feel well. Throw away needles in a needle/sharp disposal box. Do not reuse needles or other items. When the box is full, follow all local rules for getting rid of it. Talk with a doctor or pharmacist if you have any questions. What do I do if I miss a dose? Take a missed dose as soon as you think about it. If it is less than 3 days (72 hours) until your next dose, skip the missed dose. Take your next dose on your normal day. Do not take 2 doses at the same time or extra doses. How do I store and/or throw out this drug? Store in a refrigerator. Do not freeze. Do not use if it has been frozen. If needed, you may store at room temperature for up to 14 days. Write down the date you take this drug out of the refrigerator. If stored at room temperature and not used within 14 days, throw this drug away. Store in the original container to protect from light. Protect from heat. Keep all drugs in a safe place. Keep all drugs out of the reach of children and pets. Throw away unused or drugs. Do not flush down a toilet or pour down a drain unless you are told to do so. Check with your pharmacist if you have questions about the best way to throw out drugs. There may be drug take-back programs in your area. General drug facts If your symptoms or health problems do not get better or if they become worse, call your doctor. Do not share your drugs with others and do not take anyone else's drugs. Some drugs may have another patient information leaflet. If you have any questions about this drug,please talk with your doctor, nurse, pharmacist, or other health care provider. If you think there has been an overdose, call your poison control center or get medical care right away. Be ready to tell or show what was taken, how much, and when it happened. Last Reviewed [id number] Consumer Information Use and Disclaimer This generalized information is a limited summary of diagnosis, treatment, and/or medication information. It is not meant to be comprehensive and should be used as a tool to help the user understand and/or assess potential diagnostic and treatment options. It does NOT include all information about conditions, treatments, medications, side effects, or risks that may apply to a specific patient. Itis not intended to be medical advice or a substitute for the medical advice, diagnosis, or treatment of a health care provider based on the health care provider's examination and assessment of a patient's specific and unique circumstances. Patients must speak with a health care provider for complete information about their health, medical questions, and treatment options, including any risks or benefits regarding use of medications. This information does not endorse any treatments or medications as safe, effective, or approved for treating a specific patient. UpOut. and its affiliatesdisclaim any warranty or liability relating to this information or the use thereof. The use of thisinformation is governed by the Terms of Use, available at https://www.[employer]/en/solutions/Respect Your Universeicomp/about/lamine Fitness apps 7 Minute Workout: Professionally designed workouts that are short and effective. Workouts you can do anytime anywhere. 30 day Fitness Challenge: Workout at home, suited for anybody at any time. The 30 Day Fit ChallengeWorkout, designed by a professional head girls golf coach, and is scientifically proven to help improve fitness and health. Also, this isabel can synchronize with burned calorie data on Snipshot. Don't need to go to gym, just use your bodyweight and take a few minutes a day. Map My Fitness by Under [place]: Do you love a sense of community? Then you re going to love this isabel. Not only is it free, but you can interact with other members, share completed workouts, and receive/give encouragement from people on similar fitness journeys. Plus, you can join challenges and compete with other members. Freeletics: Customize your daily workouts and decide how you d like to achieve your goals whether it s with gym equipment or using your own body weight. This free isabel allows you to have access to anddownload free HIIT routines which you can even monitor through your Apple watch. After creating a profile, you can start your journey working out wherever, whenever! [employer] Isbael: You may not have a fancy [employer] bike or treadmill, but there is still a lot for you on the [employer] Isabel. Normally $12.99, but they offer the first month free. [employer] offers a variety oflive fitness classes that you can filter by type, length, time and fitness level. You must registerwith a credit card, and will be charged after 30 days if you don't cancel. Espinoza it on the calendar or set an alert for the trial period is up. If you aren't good at remembering to cancel after trial periods, you may want to skip this one. [employer] Training Club Isabel: Offering everything from bodyweight-only to full- equipment workouts for everyone at all fitness levels. There is a free plan with 200+ workouts, or a premium plan for $14.99/mo. Walkathome: The Walk at Home Isabel is a monthly calendar of workouts starting at $4.99 a month. Each month, receive a new set of workouts curated by the Walk at Home Team. It is made up of full-length titles, special edits, and exclusive content. You can swipe left or right and choose any workout youwant, all you do is tap and walk. ?FitOn: Fitness Workout Plans Isabel: Take your FREE workout wherever you go with the TopioOn isabel. Thereare live classes, on demand, challenges, and more. You can select time, intensity, target area and more. They'll even set up a fitness plan based on your goals and stats - with optional reminders so you can't just say that you forgot. [employer] Media Job Titles: SO MANY FREE workouts on Dripplerer. You can narrow your search by choosing difficulty level, body focus, training type (HIIT, strength, pilates, cardio, etc), equipment available, length of time, and more! There are no excuses! You can ask for a 10 minute workout with no equipment, and you'll have 126 choices! Let's face it .you have 10 minutes these days. GoNoodle: Do kids need a break to get the wiggles our in between at-home school work or boredom? Turn on GoNoodle! The website and isabel provide movement and mindfulness videos created by child development experts to help get kids moving! You'll find creative movement, Kids Bop videos, kids Bishop, Think about It lessons, and more. We use the isabel on [employer] to stream the videos on our TV, and the kids LOVE dancing along. [employer] Fitness Team Body Project: On demand workouts at home. Enjoy over 400 HIIT cardio, resistance, circuit, Pilates and boxing workouts. Programs that guarantee safe, healthy and sustainable fat loss and muscle tone with workouts that are easy to follow and fun. Also an isabel available. Yoga with Sonia: Her yoga is for all abilities, and is there is truly something for everyone. There are short and long options, yoga focusing on specific areas of the body, or that is for dealing with specific injuries or emotional needs. Pick any, or work your way through one of her 30 day programs. Exercising with Al Aldana: Inspiring the world to fitness in body, soul and spirit. There are workouts, stories of inspiration, courage and more. So subscribe now to be a better you. Burn Fat! BurnCalories! Lose weight! Face life challenges and be an overcomer. [employer]: [employer] offers all types of workouts on YouTube, including Bishop, HIIT, Standing Hamlin, Core, and more. Heidy Blanton hiogi: This channel offers a HUGE library of fitness videos. You find all typesof workouts, including no-equipment, weights, kettlebell, yoga, Pilates, kickboxing, cardio, and somuch more. You can also join fitness challenges and use workout calendars that will tell you exactly what videos to do each day. Cosmic Kids Yoga: Fun themed yoga workouts for kids, including Frozen, Trolls, Star Wars, Animals, and kid-friendly resources for dealing with life situations and more! The workouts are around 30 minutes, and may hold school aged kids attention a little better. My 6 year old loves them, but my 4 year old only joins in occasionally. Adapted from: https://www.[employer]/pevb-gk-wlgs-workout-options/ A Short Walk After Meals Is All ItTakes to Lower Blood Sugar Researchers studying older adults with pre-diabetes found that 15 minutes of [id number]-[id number] exercise after every meal curbed risky blood sugar spikes all day. Seniors are more prone to developing diabetes, but a little exercise could make a big difference. Astudy published today in Diabetes Care found that three short walks each day after meals were as effective at reducing blood sugar over 24 hours as a single 45-minute walk at the same moderate pace. Even better, taking an evening constitutional was found to be much more effective at lowering bloodsugar following supper. The evening meal, often the largest of the day, can significantly raise 24-hour glucose levels. The innovative exercise science study was conducted at the Clinical Exercise Physiology Laboratory at the [facility] ([employer] [facility] [employer]) using whole room calorimeters. Loretta Conde, Ph.D., chair of the [employer] Department of Exercise Science, led the study. These findings are good news for people in their 70s and 80s who may feel more capable of engaging in intermittent physical activity on a daily basis, Amaya said in a press release. Putting Humans in a Box to Measure Their Energy Use The whole room calorimeter (WRM), which looks like a very small hotel room, is a controlled-air environment for human study that allows scientists to calculate a person s energy expenditure by testing samples of air. The balance of oxygen consumed and carbon dioxide produced varies according to theactivity level of the person in the room. The WRM also measures the body s use of different food fuels, such as carbohydrates, proteins, and fats. The 10 study participants spent three 48-hour periods in the small calorimeter rooms. Each room wasequipped with a bed, toilet, sink, treadmill, television, and computer, leaving little room to movearound. Participants ate standardized meals, and their blood sugar levels were monitored continuously usingblood tests. The first day in the WRM served as a control period, with no exercise. On the second day, participants either walked at a moderate pace on the treadmill for 15 minutes after each meal, or for 45 minutes in either the late morning or before supper. The researchers observed that the evening post-meal walk was the most effective in lowering blood sugar levels for a full 24 hours. The typical exaggerated rise in blood sugar after supper--which often lasts well into the night andearly morning--was curbed significantly as soon as the participants started to walk on the treadmill, the study authors said. How Age Affects Insulin Resistance An estimated 79 million Americans have pre-diabetes, according to the National Diabetes Education Program run by the National Institutes of Health. But many people have no idea they are at risk. According to Amaya, older people may be particularly susceptible to poor blood sugar control after meals because inactive muscles contribute to insulin resistance. The problem is compounded by slow or low insulin secretion by the pancreas, which often occurs as the body ages. Post-meal high blood sugar is a jordan risk factor in the progression from impaired glucose tolerance (pre-diabetes) to type 2 diabetes and cardiovascular disease, Amaya explained. Other studies have suggested that weight loss and exercise can prevent type 2 diabetes. The authorssay theirs is the first study to examine short bouts of physical activity timed around the risky period following meals--a time when blood sugar can rise rapidly and potentially cause damage to internal organs and blood vessels. The muscle contractions connected with short walks were immediately effective in blunting the potentially damaging elevations in post-meal blood sugar commonly observed in older people, Amaya said. If the findings of this small study hold up to further testing, it could lead to an inexpensive prevention strategy for pre-diabetes, which can develop over time into type 2 diabetes. Back in the day, it was de rigueur to take a morning, noon, and evening walk. The time has come to get up from the table, tie on those walking shoes, and take a little stroll around the block. [email or web address]-[email or web address]-zwaeyms-ivilq-vmwdk-[email or web address]-ekmclny-bloo [email or web address]-[email or web address]-818563 My opinion 3 hour Rule: -last meal /snack 3 hours before sleeping ,but mostly try to be done by 7 pm --eat Rich Breakfast, high in protein hard boiled eggs/protein drinks - At least 3 hours break between each meals ,except water --sleep 7 hours at night , that means going to bed early -- drink only water ( no soda or juices) /no Alcohol consumption --cut down on coffee consumption if consuming high amounts Website :You can visit to web site for low carb recipe information as well as visual guide to low carb food: Https://www.dietdoctor.[employer]/ ( visual guide for low carb diet) Limit carb consumption to 80- 100 grams per day. Goals: formal exercise 2-5 x/week as tolerated, start with 10 mins/day to goal of 30 minutes ( -- for exercise, you should shoot for a goal of >150 min per week initially. Depending at whatlevel you are starting, that may seem like an unachievable task. However, the best plan is to just begin to walk or bike or do another activity that you like and track your steps per day. You do not need to pay attention to the time, but you do need to try to increase your exercise every 3 weeks. Other strength exercises, using light weights or training bands may also be useful, especially when combined with regular aerobic exercise. Studies have shown that >200min per week is best to maintain weight loss, so that would be the overall end goal.) Have 3 meals a day-protein source with each meal (structured meal planning) Food journal daily and bring it to all appointments If you want you can REPLACE one of your meals with a liquid meal or frozen meal. This is easy to start and may help with your weight. 1. Liquid meal replacement (Boost, Ensure) 2. Frozen meal (Healthy Choice, Lean Cuisine - sodium under 650mg, can always add veggies to the meal) 3. Powdered protein (Premier Protein) or meal replacement (I like a plant based meal replacement called Healthy Skoop Nutrition - can mix w froz berries and almond milk) -- IN GENERAL - suggestions based on important of our sleep cycle called circadian rhythm and its influence on our gut microbiota and overall health tragetory 1) EAT MOST OF YOUR FOOD IN AM AND EARLY PM 2) NO EATING AT NIGHT 3) EXERCISE DURING DAY 4) BE CONSISTENT WITH MEAL STRUCTURE ie Meals at same time during the day. -- keep record of your food intake - it is easier for us to understand your eating habits and food preferences, looking into the amounts of protein, carbs, and fat in your diet. Good examples of appsto track calories are SNAPP'PAL, LOSE IT. Some patient have found FOODUCATE to help with decisions around food, however choose apps that best suits you. documented [facility] History of Present illness Narrative* Belgica Pineda APRN.CNP - 10/26/2021 8:35 AM EDT Images from the original note were not included. Obesity Medicine Followup Note 10/26/2021 Patient Summary: is 70 year old Male who presents for follow-up evaluation of his obesity and related complications to the [facility] [place]. In our previous visits we have outlined an individualized lifestyle intervention including a personalized nutrition recommendations and physical activity optimization. Lc Mcintosh Romie is here today for follow up evaluation for non surgical metabolic weighth loss management. his last office visit was3 month(s) ago with [facility]. Weight loss since last visit: Today's weight: 303.8 lbs Last weight: 294 lbs BMI: 46.58 Interval history: Obesity Medications: Current obesity medications: Metformin 1500 mg xr daily -- reports mild suppression of appetite and mild increase in satiety -- reports no side effects from the metformin. Exercise Freq-walk daily, around the town and back- limited Barriers- neuropathy Work-related activity: Sedentary Diet Healthy food choices- varies what time eats first meal eggs, 2, spam 8-9 am; or whenever gets up; lunch no; dinner, 5pm Protein, chicken, occasional veges, Soda:no Snacking: popcorn, bag pork rinds, Water: 50-60 ounces daily Structure- limited structure with meals ?Sleep Duration (<6hr)- 5 hours Quality- uses cpap on regular basis; somewhat rested; Stress Degree-mild Cause-? PAST MEDICAL HISTORY Diagnosis Date Asthma Atrial fibrillation (HCC) S/P successful cardioversion in 2015; maintained on Sotolol and Eliquis Cardiac defibrillator in place April 2011 CHF (congestive heart failure) ([facility]) Class III Depression Diabetes mellitus ([facility]) H/O bariatric surgery 08/2019 Hyperlipidemia Hypertension Kidney stone Morbid obesity (HCC) Non-ischemic cardiomyopathy ([facility]) 2011 Biventricular pacing device/defibrillator placed; EF recovered to 65% in 2016 ARMANDO (obstructive sleep apnea) CPAP FUNCTIONAL STATUS: Walk indoors, such as around the house (1.75 METs) Take care of self, that is eating, dressing, bathing, using the toilet (2.75 METs) Walk a block or two on level ground (2.75 METs) Review of Systems: Review of Systems HENT: Negative. Eyes: Report no hx of glaucoma Respiratory: Negative. Gastrointestinal: Reports no no hx of pancreatitis; had cholecystectomy 2017 Endocrine: Negative. Reports no hx of medullary thyroid cancer or men syndrome Genitourinary: Reports hx of renal stones; Musculoskeletal: Positive for arthralgias, gait problem and myalgias. Skin: Negative. Allergic/Immunologic: Negative. Neurological: Reports america neuropathy to america feet; Psychiatric/Behavioral: Negative. PAST SURGICAL HISTORY Procedure Laterality Date CARDIAC CATH 07/2016 done for positive stress test; Mild CAD of LAD, Circumflex, and RCA; EF 40-45% CARDIOVERSION 2016 Successful cardioversion of atrial fibrillation COLONOSCOPY maybe 10 yrs ago DEFIBRILLATOR SURGERY 12/20/2018 EGD 09/03/2019 GASTRIC WALL TISSUE WITH MILD REACTIVE GASTROPATHY EGD EUS 01/07/2020 ELBOW 03/04/2014 reconstructed elbow LAP SLEEVE GASTRECTOMY 09/03/2019 hernia repair, lysis of adhesions and intraoperative EGD LIVER BIOPSY 07/01/2020 PACEMAKER IMPLANT april 2011 - [facility] REMOVAL GALLBLADDER 11/2017 TONSILLECTOMY HX 1960's TOOTH EXTRACTION Social History Tobacco Use Smoking status: Never Smokeless tobacco: Never Vaping Use Vaping Use: Never used Substance Use Topics Alcohol use: No Drug use: No PE BP 148/88 (BP Site: Left Arm, BP Position: Sitting, BP Cuff Size: Large Adult) Pulse 80 Ht 172 cm (5' 7.72) Wt (!) 137.8 kg (303 lb 12.8 oz) BMI 46.58 kg/m Physical Exam Constitutional: Appearance: He is obese. HENT: Mouth/Throat: Mouth: Mucous membranes are moist. Pharynx: Oropharynx is clear. Cardiovascular: Rate and Rhythm: Normal rate and regular rhythm. Pulses: Normal pulses. Heart sounds: Normal heart sounds. Pulmonary: Effort: Pulmonary effort is normal. Breath sounds: Normal breath sounds. Abdominal: General: Bowel sounds are normal. Palpations: Abdomen is soft. Musculoskeletal: Cervical back: Normal range of motion and neck supple. Right lower leg: Edema present. Left lower leg: Edema present. Skin: General: Skin is warm and dry. Capillary Refill: Capillary refill takes less than 2 seconds. Neurological: Mental Status: He is alert and oriented to person, place, and time. Psychiatric: Mood and Affect: Mood normal. Behavior: Behavior normal. Thought Content: Thought content normal. Results Appointment on 08/20/2021 Component Date Value Ref Range Status Glucose 08/20/2021 127 (A) 74 - 99 mg/dL Final BUN 08/20/2021 16 9 - 24 mg/dL Final Creatinine 08/20/2021 1.44 (A) 0.73 - 1.22 mg/dL Final Sodium 08/20/2021 142 136 - 144 mmol/L Final Potassium 08/20/2021 4.1 3.7 - 5.1 mmol/L Final Chloride 08/20/2021 106 (A) 97 - 105 mmol/L Final CO2 08/20/2021 26 22 - 30 mmol/L Final Anion Gap 08/20/2021 10 9 - 18 mmol/L Final Calcium, Total 08/20/2021 9.3 8.5 - 10.2 mg/dL Final Estimated Glomerular Filtration Ra* 08/20/2021 52 (A) >=60 mL/min/1.73m Final WBC 08/20/2021 7.43 3.70 - 11.00 k/uL Final RBC 08/20/2021 5.39 4.20 - 6.00 m/uL Final Hemoglobin 08/20/2021 15.0 13.0 - 17.0 g/dL Final Hematocrit 08/20/2021 44.5 39.0 - 51.0 % Final MCV 08/20/2021 82.6 80.0 - 100.0 fL Final MCH 08/20/2021 27.8 26.0 - 34.0 pg Final MCHC 08/20/2021 33.7 30.5 - 36.0 g/dL Final RDW-CV 08/20/2021 16.0 (A) 11.5 - 15.0 % Final Platelet Count 08/20/2021 167 150 - 400 k/uL Final MPV 08/20/2021 9.9 9.0 - 12.7 fL Final Absolute nRBC 08/20/2021 <0.01 <0.01 k/uL Final Ferritin 08/20/2021 167.9 30.3 - 565.7 ng/mL Final Iron 08/20/2021 84 41 - 186 ug/dL Final TIBC 08/20/2021 270 232 - 386 ug/dL Final Transferrin Saturation 08/20/2021 31.1 15.0 - 57.0 % Final Vitamin B1 (Thiamine diphosphate),* 08/20/2021 180.9 84.3 - 213.3 nmol/L Final Vitamin B12 08/20/2021 314 232-1,245 pg/mL Final Folate 08/20/2021 11.0 >4.7 ng/mL Final Impression: 70 year old male with a class 3 obesity here for non surgical metabolic weight loss management. Body mass index is 46.58 kg/m . Assessment/Plan: ASSESSMENT/PLAN: 1. Class 3 severe obesity due to excess calories with body mass index (BMI) of 45.0 to 49.9 in adult, unspecified whether serious comorbidity present (HCC) - ICD9: 278.01, V85.42, ICD10: E66.01, Z68.42 (primary diagnosis) Weight increasing - Behavioral and pharmacological intervention Counseled patient in length recommended to continue low carbohydrate low sugar nutrition and continue to manage maladaptive eating behaviors and adding resistance exercise. Discussed with patient to continue low carbohydrate nutrition provided examples and discussed with patient to increase cardio e xercise add some weights and increase non- exercise activity thermogenesis. I have also reviewed the possibility using weight loss medications in effort to reduce patient's appetite. I reviewed the different therapeutic options available including phentermine, Qsymia, Contrave, Saxenda, topiramate, metformin, bupropion and Effexor which all been associated weight loss. At this time we agreed that the patient's best option at this point to be: Increase metformin 500 mg XR patient is to take 1500 mg daily. He is to take 2 tablets with breakfast and 1 tablet with supper. Begin Trulicity 0.75 mg subcutaneous weekly injection - HGB A1C I have reviewed patient pros and cons of taking this medication. I have also discussed with patientat length and in depth the importance of working to change his current nutrition and a more consistent approach to meals and mealtime. In addition I talked to the patient about monitoring his blood pressure and reporting any elevations of 150/90 or greater. I also discussed with the patient how to use the once weekly injectable Trulicity and to report any side effects patient verbalized understanding. 2. BMI 40.0-44.9, adult (HCC) - ICD9: V85.41, ICD10: Z68.41 Weight increasing - Behavioral and pharmacological intervention 3. Dietary counseling and surveillance - ICD9: V65.3, ICD10: Z71.3 Reviewed principles of energy metabolism caloric intake and expenditure and rationale for treatmentprogram. Also reinforced need for reduced calorie low-fat nutrition and increase physical activity. 4. Cardiomyopathy, unspecified type (HCC) - ICD9: 425.4, ICD10: I42.9 Stable at this time Continue follow-up primary care physician 5. Essential hypertension - ICD9: 401.9, ICD10: I10 - fair control - Continue current medication(s) - Recommended regular aerobic exercise. - Recommend home blood pressure monitoring, to bring results in on next visit - Reviewed risks of HTN and principles of treatment - Goal of BP <130/80 - Recommend home or pharmacy blood pressure monitoring - Recommended no refined sugar, low refined starch, healthy oil intake (olive oil), healthy protein(fish) along the lines of the Mediterranean diet. - HGB A1C 6. Implantable cardioverter-defibrillator (ICD) in situ - ICD9: V45.02, ICD10: Z95.810 Stable at this time Continue follow-up with cardiology and primary care physician as scheduled 7. NAFLD (nonalcoholic fatty liver disease) - ICD9: 571.8, ICD10: K76.0 Continue low-fat low sugar nutrition Will monitor labs Follow-up with primary care physician as scheduled 8. Obstructive sleep apnea (adult) (pediatric) - ICD9: 327.23, ICD10: G47.33 Encouraged to continue using CPAP Encouraged to develop a more consistent nighttime routine 9. Type 2 diabetes mellitus without retinopathy (HCC) - ICD9: 250.00, ICD10: E11.9 Controlled. - Encouraged regular aerobic exercise and weight loss Increase metformin to 1500 mg XR daily Begin Trulicity 0.75 mg subcutaneous weekly Belgica Pineda APRN.[facility] Patient is doing well otherwise, continues lifestyle modification. Patient remains motivated to lose weight. This note was partially generated using [employer] voice recognition system, and there may be some incorrect words, spellings, and punctuation that were not noted in checking the note before saving. -- We discussed several strategies to track food intake and increase mindfulness around eating. We will start with a self-directed attempt in combination with the above recommendations. -- Encouraged consistency of exercise, with an overall goal of 200 minutes per week. This dose of exercise has been effective in weight loss and maintenance. We discussed that cardiovascular exerciseis most beneficial for weight loss initially, but it is important to combine resistance training asthere is a loss of lean muscle mass with weight loss. Belgica Pineda APRN [facility] Obesity Medicine I spent a total of 35 minutes on the date of the service which included preparing to see the patient, [id number] patient care, completing clinical documentation, obtaining and/or reviewing separately obtained history, performing a medically appropriate examination, counseling and educating the pat ient/family/caregiver, ordering medications, tests, or procedures, communicating with other HCPs (not separately reported), independently interpreting results (not separately reported), communicatingresults to the patient/family/caregiver, and care coordination (not separately reported) 5A's- Assess: I assessed behavioral health risk/factors affecting --- Asked about/assess behavioral health risk(s) and factors affecting choice of behavior change goals --- somewhat sedentry lifestyle ---?snacking ---Lack of exercise Advise: clear, specific, personalized behavior change advice. ---I gave very clear, specific, and personalized behavior change adviced, including information about personal health harms and benefits. Agree: Patient agrees with selected appropriate treatment goals and methods to change behavior Assist: Provided IBT w self-help, handouts, teaching skills and support Using behavior change techniques with self-help and Counseling in achieving Goals. Also discussed supplementing with adjunctive medical treatments when appropriate. Arrange: follow up scheduled, handouts given to patient. documented in this [facility] History of Present illness Narrative* Kimmy Torres APRN.CNP - 08/20/2021 9:22 AM EDT BARIATRIC SURGERY CLINIC FOLLOW UP NOTE Name: Lc Grubbs Index Surgery Date of Surgery: 09/03/2019 Surgeon: Dr. Lao Surgical Procedure: Sleeve gastrectomy Pre-surgical weight: 146.1 kg (322 lb) Override Index Surgery Information? No Other Bariatric Surgeries None Visit: 23 months Today's Visit: Wt 133.4 kg (294 lb) BMI 45.07 kg/m2 BMI 45.07 kg/(m^2) Last Visit: Wt: 137 kg (302 lb) BMI: 46.30 kg/(m^2) Total weight loss: 12.7 kg (28 lb) [place] weight: 74 kg (163 lb 1.4 oz) Excess weight: 72.1 kg (158 lb 14.6 oz) % of excess body weight lost: 12.7 kg (28 lb) (17.62% of excess weight loss) COMPLICATIONS SINCE LAST VISIT?: NONE DIET INTAKE: tolerates Phase V diet Yoni is here today with his , Pati, in office. He is doing well with fluid and protein intake meeting his goals consistently. He does admit to snacking and unhealthy eating patterns which he attributes to weight gain. Exercise is difficult for him due to neuropathy and joint pain. He denies nausea, vomiting, abdominal pain, changes to stool pattern, acid reflux symptoms, dysphagia-like symptoms. 3 months ago, he noticed a bulge near his umbilicus consistent with umbilical hernia is currently not causing any pain or discomfort. He is taking vitamins and medications as directed. DAILY SUPPLEMENTS: See RD note EXERCISE: walking Are you attending any Support Groups? No attendance HISTORY REVIEWED (electronic chart updated): - medical history - medications - allergies Current Outpatient Medications Medication Sig CPAP Please lower PAP to 15/11 cmH2O. Please send us 2 week download at new pressure. metFORMIN ER (GLUCOPHAGE XR) 500 mg 24 hr tablet TAKE 2 TABLETS BY MOUTH DAILY WITH BREAKFAST. Inhalational Spacing Device (BREATHERITE VALVED MDI SPACER) BREATHERITE VALVED MDI CHAMBER [facility] SUPPLIES [id number] Corinnal[employer] [place] CPAP Increase bilevel to 22/18 cmH2O with backup rate of 12 BPM. Also please refit patient's dreamwear FFM - the headgear/tubing is likely one size too small and thus pulling up on nose through the night. DME = [facility] carvedilol (COREG) 6.25 mg tablet Take 3.125 mg by mouth twice daily with meals. furosemide (LASIX) 20 mg tablet Take 20 mg by mouth once daily. capsaicin (ZOSTRIX) 0.025 % cream Apply to affected area three times daily. Cyanocobalamin 1,000 mcg subl Dissolve 1 tablet under the tongue once daily. CPAP Please adjust bilevel to 17/13 cmH2O and turn off backup rate. Please provide download in 2-3 weeks. Please fit with [employer] Spinewear full face mask (under nose - med frame, large cushion). ADVAIR DISKUS 500-50 mcg/dose dsdv INHALE ONE PUFF INTO THE LUNGS TWICE DAILY potassium citrate ER (UROCIT-K) 5 mEq (540 mg) TbER Take 1 tablet by mouth once daily. ONETOUCH ULTRA BLUE TEST STRIP test strip 1 Strip twice daily. EASY TOUCH 31 gauge x 5/16 1 Each by INJECTION(UNSPECIFIED PARENTERAL ROUTES) route five times daily. aspirin, enteric coated (ASPIRIN, ENTERIC COATED) 81 mg EC tablet Take 1 tablet by mouth once daily. ascorbic acid, vitamin C, (VITAMIN C) 500 mg tablet Take 500 mg by mouth once daily. Fluticasone Propionate (FLOVENT DISKUS) 100 mcg/actuation Inhale 1 Puff as instructed twice daily. After Advair tamsulosin ER (FLOMAX) 0.4 mg Take 0.4 mg by mouth once daily. albuterol HFA (PROVENTIL HFA, VENTOLIN HFA) 90 mcg/actuation inhaler Inhale 2 Puffs as instructed every 4 hours as needed for Wheezing/Shortness of Breath. alpha lipoic acid 200 mg cap Take 200 mg by mouth once daily. magnesium oxide 400 mg magnesium tab Take 400 mg by mouth twice daily. CPAP Change bilevel setting to 20/15 cmH2O with BR 16 BPM. Please fax us download in 2 weeks. buPROPion XL (WELLBUTRIN XL) 150 mg 24 hr tablet Take 150 mg by mouth once daily. montelukast (SINGULAIR) 10 mg tablet Take 10 mg by mouth daily at bedtime. atorvastatin (LIPITOR) 20 mg tablet Take 20 mg by mouth once daily. multivitamin ORAL tablet Take one(1) tablet daily. No current facility-administered medications for this visit. REVIEW OF SYSTEMS: Denies nausea, vomiting, dumping syndrome, reactive hypoglycemia, gustatory rhinorrhea, Denies abdominal pain, constipation, diarrhea, melena, hematochezia, Denies paresthesias, gait abnormality, fatigue, weakness, lower extremity edema PHYSICAL EXAM: BP 171/101 Pulse 80 Ht 172 cm (5' 7.72) Wt 133.4 kg (294 lb) BMI 45.07 kg/m Physical Exam Constitutional: General: He is not in acute distress. Appearance: Normal appearance. He is obese. He is not ill-appearing. HENT: Head: Normocephalic. Cardiovascular: Rate and Rhythm: Normal rate. Pulmonary: Effort: Pulmonary effort is normal. No respiratory distress. Abdominal: General: Abdomen is flat. Palpations: Abdomen is soft. Hernia: A hernia is present. Comments: Umbilical hernia present No skin discoloration or abnormal findings Musculoskeletal: General: Normal range of motion. Cervical back: Normal range of motion. Skin: General: Skin is warm and dry. Coloration: Skin is not jaundiced. Neurological: General: No focal deficit present. Mental Status: He is alert and oriented to person, place, and time. Mental status is at baseline. Psychiatric: Mood and Affect: Mood normal. Behavior: Behavior normal. Thought Content: Thought content normal. ASSESSMENT AND PLAN: Normal post-OP course DISPOSITION: Return 1 year to EST/Standard office visit EDUCATION: Encouraged to continue with healthy lifestyle changes and incorporate cardiovascular andresistance training, Discussed weight loss expectations after bariatric and metabolic surgery, Advised PT to avoid NSAIDs, smoking tobacco given increased risk of marginal ulcers or Discussed importance of protein intake as per the RDN note REFERRALS: outpatient RD LABS: Today: See [facility] Orders ASSESSMENT/PLAN: 1. S/P laparoscopic sleeve gastrectomy - ICD9: V45.86, ICD10: Z98.84 (primary diagnosis) - He is at 17.62% EWL which is suboptimal. He continues to work with obesity medicine and I am placing a referral for outpatient RD today for additional resources. He does admit to unhealthy eating behaviors and exercise is limited due to joint pain. - CONSULT TO NUTRITION THERAPY - BASIC METABOLIC PNL - CBC - FERRITIN BLD - IRON + TIBC - VITAMIN B1 (THIAMINE), WHOLE BLOOD - VITAMIN B12 BLOOD - FOLATE SERUM 2. Class 3 severe obesity with body mass index (BMI) of 45.0 to 49.9 in adult, unspecified obesity type, unspecified whether serious comorbidity present (HCC) - ICD9: 278.01, V85.42, ICD10: E66.01, Z68.42 Weight increasing - Behavioral intervention and - Medical nutrition therapy with dietitian - continue working with obesity medicine and outpatient RD 3. Essential hypertension - ICD9: 401.9, ICD10: I10 - continue medical management 4. Umbilical hernia with obstruction, without gangrene - ICD9: 552.1, ICD10: K42.0 - Pt has a palpable hernia near umbilicus. It is currently not causing any pain or discomfort. Reviewed red flag symptoms and when to seek emergency care. He is requesting to follow up with surgeon in February when his is scheduled for a follow up. 5. Type 2 DM - Per pt, most recent A1C is 5.8, remains on metformin Kimmy Torres APRN.[facility] Total time in direct patient contact = 25 min. Greater than 50% of the time was spent in counselingand/or coordination of care. documented in this encounterK[facility]07-15-2022 History of Present illness Narrative* Leela Lal, RD - 08/20/2021 8:30 AM EDT 2 Years Post-op Patient seen in office for visit. Surgery Date/Surgeon:09/03/19 LSG, Dr. Tashia Mcintosh Kayceejosh 70 year old male Ht 172 cm (5' 7.72) Wt 133.4 kg (294 lb) BMI 45.07 kg/m 28# lost since surgery 17%EWL based on IBW w/ BMI 25 Pre-surgical weight: 322 lbs Tolerating by mouth well: Yes Nausea: No Vomiting: No Constipation: No Diarrhea:No Weak/Shaky/Light-headed: No Estimated Nutrient Intake Average of 3 days' food records: No 24 hour recall/Usual intake: Yes 24 hr recall: 08/19 B: 2 eggs (14g) L: [employer] take out - beef w/ rice noodles (cabbage and egg mixed in) D: [employer] take out - beef w/ rice noodles (cabbage and egg mixed in) F: 3 (24 oz cup) Food/beverage intolerance: none Exercise: limited mobility d/t neuropathy in feet -- trying to walk -- encouraged to utilize chair exercises Intake of obesity endorsing foods: per recall, per pt report none -- does report snacking (usually cheese sticks) Dining out: 1x week Alcohol/Caffeine/Sugar/Carbonation Beverages in Diet: none Frequent grazing: yes Satiety between meals: sometimes Attendance at support group: none Vitamins: MVI: flintstones gummies (2 daily) + one a day men (complete) B12:1000 mcg (sub) in addition to MV Calcium Citrate: not taking at this time Iron: within MV Vitamin D: OTC in addition to MV Not meeting goals at this time, patient interested in bariatric MV, would recommend OdinOtvet 18 + citracal 650mg 2x/day to meet goals. Written information provided and reviewed: protein food sources journal Reinforced Behaviors:portion control eating slowing drink between meals attend support group increase exercise: 5x/week for 30 min (chair exercises) increase protein intake 70-105g/day, limit dining out, keep a food journal daily Patient presents for nutrition follow up per obesity medicine request to review post-op bariatric guidelines with patient, 2 years s/p LSG. Pt last met with RD on 03/06/20. Patient's spouse present during visit. Verbalized that is not keeping a food journal at this time, did encouraged to begin to keep one again to aid with further weight loss/weight maintenance and ensuring meeting protein and fluid goals daily. Per 24-hour recall, not meeting protein goals, able to meet fluid goals. Reviewed overall daily protein and fluid goals with patient. Is not endorsing informal exercise at this time, is experiencing neuropathy in both feet. Did encouraged to utilize chair exercises 5 days a week for 30 minutesper session to break a sweat to aid with further weight loss/weight maintenance. Postop vitamins reviewed, not meeting goals at this time.Previously using Gummies for vitamins, advised against this for bariatric patients. Reviewed bariatric specific multivitamin options with patient, patient statedthat they were open to switching as well as beginning to take calcium citrate supplements. Patient below weight loss projections that 2 years status post laparoscopic sleeve gastrectomy at 17% EWL. Did recommend patient working with outpatient dietitian in conjunction with obesity medicine. Plan: Consider working with outpatient dietitian, continue with the obesity medicine, follow-up with bariatric RD at 3 years postop Goals formal exercise daily for 30 minutes (cardiovascular)--break a sweat, in intervals of 10 minutes--consider Design A journal daily and bring to all appointment--goal of 70g protein and 64oz of fluids per day use healthy plate method for all meals - 4 oz lean protein, 1/2 non starchy veg, 1/4 complex carb Total time in direct patient contact = 20 min. Greater than 50% of the time was spent in counselingand/or coordination of care. Leela Lal RD This note was generated using voice recognition technology and may contain grammatical errors. documented in this encounterK[facility]30[facility] History of Present illness Narrative* Lc López Jr., MD - 08/05/2021 11:32 AM EDT ESTABLISHED PATIENT VISIT CHIEF COMPLAINT: Follow Up HISTORY OF PRESENT ILLNESS: Lc Grubbs is a 70 year old male, BMI 46.3 kg/m2 with a PMH significant for and per last office visit of 02/19/21: 1. Obstructive sleep apnea (adult) (pediatric) - ICD9: 327.23, ICD10: G47.33 (primary diagnosis) 2. Central sleep apnea - ICD9: 780.57, ICD10: G47.31 3. Obesity, unspecified classification, unspecified obesity type, unspecified whether serious comorbidity present - ICD9: 278.00, ICD10: E66.9 Patient subjectively doing well on PAP therapy with essentially no complaints of mask leak or discomfort. AHI not fully normalized but close at 8.6 as above. However, this has again improved since last visit. We discussed possibly increasing bilevel setting further, but for now will continue to monitor with encouragement that patient sleep in the upright or off-supine position. Reminded to clean and replace equipment regularly. Encouraged weight loss. While not sleepy at present, advised pt notto drive or or operate heavy machinery if he was sleepy. PAP data download completed. Used 39 of past 30 days for avg of 6 hours and 26 minutes. Set at 17/13 cmH2O (note backup rate off). 95% leak is 100.2 LPM. AHI is 12.2. Note centrals controlled. Statesjust recently changed mask 2 nights ago. States pressure does feel like too much. Weight up about 10 pounds since last visit. No discomfort with the mask. Reports no other med conditions. No other new med conditions. Sleeping well at night with avg of about 7 hours. Denies RLS. Sleeps in recliner still but more so in bed at nights. REVIEW OF SYSTEMS GENERAL:No weight loss, malaise or fevers. HEENT:Negative for frequent or significant headaches, No changes in hearing or vision, no nose bleeds or other nasal problems NECK:Negative for lumps, goiter, pain and significant neck swelling RESPIRATORY: Negative for cough, wheezing or shortness of breath. CARDIOVASCULAR: Negative for chest pain or palpitations.NEUROLOGIC:Negative for focal numbness or weakness, headaches and dizziness or syncope, vision changes, speech/languag changes - EXCEPT that asper HPI above. SKIN:Negative for lesions, rash, and itching. LAB/IMAGING: Those performed since patient's last visit have been reviewed. WBC (k/uL) Date Value 09/14/2020 8.06 RBC (m/uL) Date Value 09/14/2020 5.10 Hemoglobin (g/dL) Date Value 09/14/2020 13.8 Hematocrit (%) Date Value 09/14/2020 43.9 MCV (fL) Date Value 09/14/2020 86.1 MCH (pg) Date Value 09/14/2020 27.1 MCHC (g/dL) Date Value 09/14/2020 31.4 RDW-CV (%) Date Value 09/14/2020 14.8 Platelet Count (k/uL) Date Value 09/14/2020 162 MPV (fL) Date Value 09/14/2020 10.3 Glucose (mg/dL) Date Value 09/14/2020 114 (H) BUN (mg/dL) Date Value 09/14/2020 16 Creatinine (mg/dL) Date Value 09/14/2020 1.33 (H) Sodium (mmol/L) Date Value 09/14/2020 144 Potassium (mmol/L) Date Value 09/14/2020 4.0 Chloride (mmol/L) Date Value 09/14/2020 105 CO2 (mmol/L) Date Value 09/14/2020 27 Protein, Total (g/dL) Date Value 06/23/2020 6.8 Albumin (g/dL) Date Value 06/23/2020 4.0 Calcium, Total (mg/dL) Date Value 09/14/2020 9.3 Alkaline Phosphatase (U/L) Date Value 06/23/2020 63 Bilirubin, Total (mg/dL) Date Value 06/23/2020 3.8 (H) AST (U/L) Date Value 06/23/2020 15 ALT (U/L) Date Value 06/23/2020 16 MEDICATIONS: metFORMIN ER (GLUCOPHAGE XR) 500 mg 24 hr tablet TAKE 2 TABLETS BY MOUTH DAILY WITH BREAKFAST. Inhalational Spacing Device (BREATHERITE VALVED MDI SPACER) BREATHERITE VALVED MDI CHAMBER [facility] SUPPLIES [phone] Corinna [place] CPAP Increase bilevel to 22/18 cmH2O with backup rate of 12 BPM. Also please refit patient's dreamwear FFM - the headgear/tubing is likely one size too small and thus pulling up on nose through the night. DME = [facility] carvedilol (COREG) 6.25 mg tablet Take 3.125 mg by mouth twice daily with meals. furosemide (LASIX) 20 mg tablet Take 20 mg by mouth once daily. capsaicin (ZOSTRIX) 0.025 % cream Apply to affected area three times daily. Cyanocobalamin 1,000 mcg subl Dissolve 1 tablet under the tongue once daily. CPAP Please adjust bilevel to 17/13 cmH2O and turn off backup rate. Please provide download in 2-3 weeks. Please fit with dreamwear full face mask (under nose - med frame, large cushion). ADVAIR DISKUS 500-50 mcg/dose dsdv INHALE ONE PUFF INTO THE LUNGS TWICE DAILY potassium citrate ER (UROCIT-K) 5 mEq (540 mg) TbER Take 1 tablet by mouth once daily. ONETOUCH ULTRA BLUE TEST STRIP test strip 1 Strip twice daily. EASY TOUCH 31 gauge x 5/16 1 Each by INJECTION(UNSPECIFIED PARENTERAL ROUTES) route five times daily. aspirin, enteric coated (ASPIRIN, ENTERIC COATED) 81 mg EC tablet Take 1 tablet by mouth once daily. ascorbic acid, vitamin C, (VITAMIN C) 500 mg tablet Take 500 mg by mouth once daily. Fluticasone Propionate (FLOVENT DISKUS) 100 mcg/actuation Inhale 1 Puff as instructed twice daily. After Advair tamsulosin ER (FLOMAX) 0.4 mg Take 0.4 mg by mouth once daily. albuterol HFA (PROVENTIL HFA, VENTOLIN HFA) 90 mcg/actuation inhaler Inhale 2 Puffs as instructed every 4 hours as needed for Wheezing/Shortness of Breath. alpha lipoic acid 200 mg cap Take 200 mg by mouth once daily. magnesium oxide 400 mg magnesium tab Take 400 mg by mouth twice daily. CPAP Change bilevel setting to 20/15 cmH2O with BR 16 BPM. Please fax us download in 2 weeks. buPROPion XL (WELLBUTRIN XL) 150 mg 24 hr tablet Take 150 mg by mouth once daily. montelukast (SINGULAIR) 10 mg tablet Take 10 mg by mouth daily at bedtime. atorvastatin (LIPITOR) 20 mg tablet Take 20 mg by mouth once daily. multivitamin ORAL tablet Take one(1) tablet daily. HISTORIES PAST MEDICAL HISTORY Diagnosis Date Asthma Atrial fibrillation (HCC) S/P successful cardioversion in 2015; maintained on Sotolol and Eliquis Cardiac defibrillator in place April 2011 CHF (congestive heart failure) ([facility]) Class III Depression Diabetes mellitus (HCC) H/O bariatric surgery 08/2019 Hyperlipidemia Hypertension Kidney stone Morbid obesity (HCC) Non-ischemic cardiomyopathy (HCC) 2011 Biventricular pacing device/defibrillator placed; EF recovered to 65% in 2017 ARMANDO (obstructive sleep apnea) CPAP FAMILY HISTORY Problem Relation Age of Onset Cancer Mother kidney, bone Cancer Father lung other (myocardial infarction) Sister Colon Cancer No Family History SOCIAL HISTORY Social History Tobacco Use Smoking status: Never Smoker Smokeless tobacco: Never Used Vaping Use Vaping Use: Never used Substance Use Topics Alcohol use: No Drug use: No PHYSICAL EXAMINATION BP 135/86 Pulse 68 Wt (!) 137 kg (302 lb) SpO2 99% BMI 46.30 kg/m GENERAL EXAM: General appearance: NAD, pleasant. HEENT: NC/AT, nasal congestion absent, no oral lesions, membranes moist. Lungs: CTA bilaterally. CV: RRR nl S1, S2 Skin: Cool to touch. NEUROLOGICAL EXAM: General: Awake, alert, oriented x3 (person,place,time), speech fluent, no dysarthria; comprehension, naming, repetition intact. CN: PERRL, EOMI and without nystagmus, VFF to confrontation, facial sensation and strength are normal and symmetric, hearing is intact to finger rub bilaterally, palate and tongue movements are intact and symmetric. SCM and trapezius strength normal. Motor: Normal tone, bulk and strength (5/5) bilaterally (throughout extremities x4). Coordination: FNF, KELSEA intact. No tremors. Sensation: LT intact throughout. No evidence of neglect. Gait: Stable with normal stride and arm swing. Assessment and Plan: ASSESSMENT/PLAN: 1. Obstructive sleep apnea (adult) (pediatric) - ICD9: 327.23, ICD10: G47.33 (primary diagnosis) 2. CSA (central sleep apnea) - ICD9: 780.57, ICD10: G47.31 3. Class 3 severe obesity with body mass index (BMI) of 45.0 to 49.9 in adult, unspecified obesity type, unspecified whether serious comorbidity present ([facility]) - ICD9: 278.01, V85.42, ICD10: E66.01, Z68.42 Patient subjectively compliant with PAP, but notes feeling tired during the day. From objective standpoint, compliance confirmed, but AHI not normalized likely due to large mask leaks. Note that events do not appears to be of central nature despite BUR being turned off at this time. Pt notes pressure is somewhat high at times. Regarding leaks, patient has allowed for significant facial hair growth likely contributing to mask leak. Plan as follows: -Patient will shave later today so as to reduce facial hair that could be contributing to mask leak. -I will lower PAP setting to 15/11 cmH2O in meantime to see if lowering pressure might also help with leak. However, PAP data download in 2 weeks to determine how AHI responds to change in PAP setting. If AHI increases, will need to again raise PAP setting to at least 17/13 cmH2O. -Encouraged weight loss. -Reminded pt to clean and replace equipment regularly. -Advised pt not to drive or operate heavy machinery if sleepy. Pt agrees with plan above. Follow up in 4-6 months or sooner prn. Will provide updates on PAP via [employer]. Lc López MD I spent a total of 30+ minutes on the date of the service which included preparing to see the patient, [id number] patient care, completing clinical documentation, obtaining and/or reviewing separately obtained history, performing a medically appropriate examination, counseling and educating the pa tient/family/caregiver, ordering medications, tests, or procedures, independently interpreting results (not separately reported) and communicating results to the patient/family/caregiver. documented in this encounterK[facility]-24-2022 Instructions* Patient Instructions* Belgica Schwarz Miriam, GATEHOUSE ATTENDANT.ENVIRONMENTAL SCIENCE TECHNICIAN - 07/30/2021 3:46 PM EDT Images from the original note were not included. Dear Yoni, It was a pleasure to care for your today; Here is today's highlights: Nutrition Consider more regular schedule of eating; 3 hours between meals Melon, berries, Activity- try to increase cardio, walking ; See handout below Medications: Continue metformin 1000 mg daily Pending records from primary care in [place] to verify if on Levemir insulin. How To Swap Sweet Treats This is the most important week yet. What the heck do you do when you want something sweet!??!! DO NOT: Focus on giving up your favorite treats. DO: Find new favorites without all the added sugar. The goal is not to just white knuckle it & force yourself to not eat sweets, but rather to findnew things to ADD & enjoy. 3 SWEET TOOTH HELPERS: 1) Natural Sugars Foods w/ natural sugar can help a sweet tooth while adding vitamins & minerals. examples: fresh fruit, unsweetened frozen fruit, plain 2% yogurt 2) Fats Fat is satisfying so it can give a quick pleasure fix without blood sugar spikes. examples: nut butter, coconut butter, nuts, seeds 3) Foods w/ Sweet Flavor Some foods have a sweet flavor on your taste buds, but don't actually have sugar. examples: cinnamon, cocoa powder/nibs, vanilla, unsweetened coconut flakes GET READY TO SUGAR SWAP! Breaking up with sugar doesn't mean the fun is over! PRODUCT SWAPS Restock your fav condiments & packaged goods to the no added sugar versions such as salad dressing, ketchup, BBQ sauce, hot sauce, pasta sauce, yogurt, oatmeal, plant milk & nut butter. PS: This doesn't mean artificially sweetened products, just ones with no added sugar. Check those labels. QUICKIE SWAPS Here are some of my favorite sugar swaps for when a craving hits: flavored creamer & sugar in coffee SWAP: coconut milk & cinnamon in coffee cook flavored yogurt SWAP: plain 2% yogurt w/ mashed berries chocolate chip cookie SWAP: stevia-sweetened dark chocolate apple cinnamon flavored oatmeal SWAP: oats w/ diced apple, cinnamon & almonds store bought protein bar SWAP: hard boiled egg ice cream SWAP: frozen banana slices w/ cocoa powder soda pop SWAP: sparkling water w/ shot of 100% fruit juice granola SWAP: DIY trail mix (chopped nuts, unsweetened coconut flakes, cocoa nibs) fruity candy SWAP: unsweetened dried willis kettle corn SWAP: popcorn drizzled w/ nut butter & cinnamon sundae SWAP: fruit topped w/ real whipped cream (shake whipping cream & vanilla in cold bigg jar) peanut butter & jelly SWAP: strawberries dipped in nut butter mint lawrence SWAP: plain 2% yogurt w/ peppermint stevia & cocoa nibs RECIPE SWAPS Here are some of my favorite sugar swap recipes w/ no added sugar: protein bites (recipe link) froyo bark (recipe link) chocolate jessica pudding (recipe link) chickpea cookie dough (recipe link) banana bread muffins (recipe link) 3-ingredient banana bread cookies (recipe link) pumpkin spice nice cream (recipe link) fruit sorbet (recipe link) freezer fudge (recipe link) chocolate magic shell (recipe link) FAQ Q: If I really want something sweet, can I use sweeteners? A: Yes. I recommend stevia or monk fruit since they are zero-calorie, naturally- based sweeteners. Use them only sparingly since they can keep you programmed to like foods with intense sweetness. Aim to avoid artificial sweeteners like you would find in pink (saccharin), blue (aspartame), and yellow(sucralose) packets. Q: Can I ever eat sugar again?? A: HELL YES! This isn't just about avoidance. It's about being awake. Making choices of when to enjoy sugar on your own terms. You controlling it & not the other way around. My favorite personal solution: SOCIAL sweets/treats/alcohol which is about eating in situations that bring JANAE. Sugar School Lesson 3: How To Swap Sweet Treats DEE [place] ([employer]) 6 SUGAR CRAVING BUSTERS 1) VINEGAR Research suggests the acetic acid in vinegar may help balance blood sugar levels & craving spikes. HOW TO: Add 1 tablespoon of vinegar to a meal or two each day. Add it to your water, put it on salads, or drizzle it on grilled veggies. 2) PROBIOTIC FOODS Unhealthy bacteria in our gut may cause cravings by changing our taste buds, influencing our hormones, and hijacking signals to our brain. Build the good bacteria in your gut w/ probiotic foods. HOW TO: Add sauerkraut to a lunch wrap or guacamole or try unsweetened plain kefir as the base of smoothies or poured over low-sugar granola & berries. 3) GREENERY Seeing greenery is linked to fewer & less intense cravings. HOW TO: Take a walk in nature or buy an indoor green plant. 4) TAPPING A study found tapping your forehead for 30 seconds decreased food cravings. Tapping distracts you & it may stimulate an acupressure region that reduces stress hormone levels. HOW TO: When you want something sweet, tap your forehead for 30 seconds, it may just decrease the craving. 5) VANILLA Research suggests vanilla's scent may help decrease cravings for sweets & chocolate. Plus new research finds adding vanilla to foods makes them taste sweet without as much sugar. HOW TO: Smell vanilla extract when a sweet craving hits, put on vanilla lip gloss, or light a vanilla candle. And add vanilla to coffee, tea, smoothies, oatmeal, etc. 6) GYMNEMA DANA Research suggests that gymnema dana impairs the ability to taste sugar by blocking sweet receptors on the tongue. HOW TO: Drink gymnema tea when you have a sweet tooth. Effects will last 30-60 min after drinking. BONUS CRAVING BUSTER Delay, don't deprive. If there's something you crave, don't tell yourself you can't have it. Instead, promise yourself you'll wait awhile, and if you truly want it later it'll be. Sugar School Lesson 4: How To Bust Sweet Cravings DEE [place] ([employer]) Simple Exercises https://www.youtube.com/watch?v=pUYxcRvdal8 Wendy Malone https://www.youtube.com/watch?v=fN1f7HJUQOB Strength training: Get stronger, leaner, healthier Strength training is an important part of an overall fitness program. Here's what strength trainingcan do for you and how to get started. By [facility] Staff Related article Strength training: How-to video collection Want to reduce body fat, increase lean muscle mass and burn calories more efficiently? Strength training to the rescue! Strength training is a jordan component of overall health and fitness for everyone. Use it or lose it Lean muscle mass naturally diminishes with age. Your body fat percentage will increase over time if you don't do anything to replace the lean muscle you lose over time. Strength training can help you preserve and enhance your muscle mass at any age. Strength training may also help you: Develop strong bones. By stressing your bones, strength training can increase bone density and reduce the risk of osteoporosis. Manage your weight. Strength training can help you manage or lose weight, and it can increase your metabolism to help you burn more calories. Enhance your quality of life. Strength training may enhance your quality of life and improve your ability to do everyday activities. Strength training can also protect your joints from injury. Building muscle also can contribute to better balance and may reduce your risk of falls. This can help youmaintain independence as you age. Manage chronic conditions. Strength training can reduce the signs and symptoms of many chronic conditions, such as arthritis, back pain, obesity, heart disease, depression and diabetes. Sharpen your thinking skills. Some research suggests that regular strength training and aerobic exercise may help improve thinking and learning skills for older adults. Consider the options Strength training can be done at home or in the gym. Common choices may include: Body weight. You can do many exercises with little or no equipment. Try pushups, pullups, planks, lunges and squats. Resistance tubing. Resistance tubing is inexpensive, lightweight tubing that provides resistance when stretched. You can choose from many types of resistance tubes in nearly any sporting goods store or online. Free weights. Barbells and dumbbells are classic strength training tools. If you don't have weightsat home, you can use soup cans. Other options can include using medicine balls or kettle bells. Weight machines. Most fitness centers offer various resistance machines. You can invest in weight machines for use at home, too. Cable suspension training. Cable suspension training is another option to try. In cable suspension training, you suspend part of your body such as your legs while doing body weight training such as pushups or planks. Getting started If you have a chronic condition, or if you're older than age 40 and you haven't been active recently, check with your doctor before beginning a strength training or aerobic fitness program. Before beginning strength training, consider warming up with brisk walking or another aerobic activity for five or 10 minutes. Cold muscles are more prone to injury than are warm muscles. Choose a weight or resistance level heavy enough to tire your muscles after about 12 to 15 repetitions. When you can easily do more repetitions of a certain exercise, gradually increase the weight orresistance. Research shows that a single set of 12 to 15 repetitions with the proper weight can build muscle efficiently in most people and can be as effective as three sets of the same exercise. As long as you take the muscle you are working to fatigue meaning you can't lift another repetition you are doing the work necessary to make the muscle stronger. And fatiguing at a higher number of repetitions meansyou likely are using a orchard manager weight, which will make it easier for you to control and maintain correct form. To give your muscles time to recover, rest one full day between exercising each specific muscle group. Also be careful to listen to your body. If a strength training exercise causes pain, stop the exercise. Consider trying a lower weight or trying it again in a few days. It's important to use proper technique in strength training to avoid injuries. If you're new to strength training, work with a sewing machine tester or other extension service specialist to learn correct form and technique.Remember to breathe as you strength train. When to expect results You don't need to spend hours a day lifting weights to benefit from strength training. You can see significant improvement in your strength with just two or three 20- or 30-minute strength training sessions a week. For most healthy adults, the Department of Health and Human Services recommends these exercise guidelines: Aerobic activity. Get at least 150 minutes of moderate aerobic activity or 75 minutes of vigorous aerobic activity a week, or a combination of moderate and vigorous activity. The guidelines suggest that you spread out this exercise during the course of a week. Greater amounts of exercise will provide even greater health benefits. But even small amounts of physical activity are helpful. Being active for short periods of time throughout the day can add up to provide health benefits. Strength training. Do strength training exercises for all major muscle groups at least two times a week. Aim to do a single set of each exercise, using a weight or resistance level heavy enough to tire your muscles after about 12 to 15 repetitions. As you incorporate strength training exercises into your fitness routine, you may notice improvement in your strength over time. As your muscle mass increases, you'll likely be able to lift weight more easily and for longer periods of time. If you keep it up, you can continue to increase your strength, even if you're not in shape when you begin. https://www.[facility].org/healthy-lifestyle/fitness/in-depth/strength-training/ art-70668339#:~:text =Strength%20training%20may%20enhance%20your,maintain%20independence%20as%20you%2 0age. Simple Exercises https://www.Simpleeube.com/watch?v=pUYxcRvdal8 Wendy Malone https://www.Simpleeube.com/watch?v=zY8l2YGJECZ Strength training: Get stronger, leaner, healthier Strength training is an important part of an overall fitness program. Here's what strength trainingcan do for you and how to get started. By [facility] Staff Related article Strength training: How-to video collection Want to reduce body fat, increase lean muscle mass and burn calories more efficiently? Strength training to the rescue! Strength training is a jordan component of overall health and fitness for everyone. Use it or lose it Lean muscle mass naturally diminishes with age. Your body fat percentage will increase over time if you don't do anything to replace the lean muscle you lose over time. Strength training can help you preserve and enhance your muscle mass at any age. Strength training may also help you: Develop strong bones. By stressing your bones, strength training can increase bone density and reduce the risk of osteoporosis. Manage your weight. Strength training can help you manage or lose weight, and it can increase your metabolism to help you burn more calories. Enhance your quality of life. Strength training may enhance your quality of life and improve your ability to do everyday activities. Strength training can also protect your joints from injury. Building muscle also can contribute to better balance and may reduce your risk of falls. This can help youmaintain independence as you age. Manage chronic conditions. Strength training can reduce the signs and symptoms of many chronic conditions, such as arthritis, back pain, obesity, heart disease, depression and diabetes. Sharpen your thinking skills. Some research suggests that regular strength training and aerobic exercise may help improve thinking and learning skills for older adults. Consider the options Strength training can be done at home or in the gym. Common choices may include: Body weight. You can do many exercises with little or no equipment. Try pushups, pullups, planks, lunges and squats. Resistance tubing. Resistance tubing is inexpensive, lightweight tubing that provides resistance when stretched. You can choose from many types of resistance tubes in nearly any sporting goods store or online. Free weights. Barbells and dumbbells are classic strength training tools. If you don't have weightsat home, you can use soup cans. Other options can include using medicine balls or kettle bells. Weight machines. Most fitness centers offer various resistance machines. You can invest in weight machines for use at home, too. Cable suspension training. Cable suspension training is another option to try. In cable suspension training, you suspend part of your body such as your legs while doing body weight training such as pushups or planks. Getting started If you have a chronic condition, or if you're older than age 40 and you haven't been active recently, check with your doctor before beginning a strength training or aerobic fitness program. Before beginning strength training, consider warming up with brisk walking or another aerobic activity for five or 10 minutes. Cold muscles are more prone to injury than are warm muscles. Choose a weight or resistance level heavy enough to tire your muscles after about 12 to 15 repetitions. When you can easily do more repetitions of a certain exercise, gradually increase the weight orresistance. Research shows that a single set of 12 to 15 repetitions with the proper weight can build muscle efficiently in most people and can be as effective as three sets of the same exercise. As long as you take the muscle you are working to fatigue meaning you can't lift another repetition you are doing the work necessary to make the muscle stronger. And fatiguing at a higher number of repetitions meansyou likely are using a orchard manager weight, which will make it easier for you to control and maintain correct form. To give your muscles time to recover, rest one full day between exercising each specific muscle group. Also be careful to listen to your body. If a strength training exercise causes pain, stop the exercise. Consider trying a lower weight or trying it again in a few days. It's important to use proper technique in strength training to avoid injuries. If you're new to strength training, work with a sewing machine tester or other extension service specialist to learn correct form and technique.Remember to breathe as you strength train. When to expect results You don't need to spend hours a day lifting weights to benefit from strength training. You can see significant improvement in your strength with just two or three 20- or 30-minute strength training sessions a week. For most healthy adults, the Department of Health and Human Services recommends these exercise guidelines: Aerobic activity. Get at least 150 minutes of moderate aerobic activity or 75 minutes of vigorous aerobic activity a week, or a combination of moderate and vigorous activity. The guidelines suggest that you spread out this exercise during the course of a week. Greater amounts of exercise will provide even greater health benefits. But even small amounts of physical activity are helpful. Being active for short periods of time throughout the day can add up to provide health benefits. Strength training. Do strength training exercises for all major muscle groups at least two times a week. Aim to do a single set of each exercise, using a weight or resistance level heavy enough to tire your muscles after about 12 to 15 repetitions. As you incorporate strength training exercises into your fitness routine, you may notice improvement in your strength over time. As your muscle mass increases, you'll likely be able to lift weight more easily and for longer periods of time. If you keep it up, you can continue to increase your strength, even if you're not in shape when you begin. https://www.[facility].org/healthy-lifestyle/fitness/in-depth/strength-training/ art-39666755#:~:text =Strength%20training%20may%20enhance%20your,maintain%20independence%20as%20you%2 0age. Tips for eating away from home: Youtube video: https://www.youEnteroMedics.com/watch?v=I7yHQXgRWbU Meals away from home make it harder to control ingredients, calories, and portions. This can be particularly challenging for people with Type 2 diabetes (and for those of us trying to avoid getting this condition). The following tips can help you enjoy eating out without abandoning your efforts to eat well. Ask how the food is prepared. Before you order, ask about ingredients and how the menu selections are prepared. Try to choose dishes made with whole grains, healthy oils, vegetables, and lean proteins. Meat that has been broiled, poached, baked, or grilled is a more health-conscious option than fried foods or dishes prepared with heavy sauces. Look for less. Your eyes are the perfect instrument for sizing up portion sizes. Use your estimating techniques to size up the food on your plate. 1 thumb tip = 1 teaspoon of peanut butter, butter, or sugar 1 finger = 1 oz. of cheese 1 fist = 1 cup cereal, pasta, or vegetables 1 handful = 1 oz. of nuts or pretzels 1 palm = 3 oz. of meat, fish, or poultry Plan on eating half your meal and take the rest home to enjoy for lunch or dinner the next day. Order an extra side of veggies. Non-starchy vegetables, such as green beans, broccoli, asparagus, or summer squash, will help you fill up with low-calorie choices. Think ahead. Learn important nutrition information ahead of time. Most [employer]com provide calories, sodium, and fat content for their menu items. Check out www.Creditera for a listing of over 50,000 foods, including many restaurant items. You can also visit company-specific websites Dining Out Tips Dining out is tricky. You have less control over ingredients & portions so even when you think you re ordering healthy, it s likely way more calories & less nutrition than a similar meal you d make at home. Research shows people who do best losing weight & keeping it off don t dine out much only 2.5 times out of 21 meals in a week. So, when you do dine out, make sure to use these PRO TIPS to keep your body happy DINE OUT LIKE A PRO 1. RUIN Your Appetite. About 1.5 hrs before you go out, eat something to cut hunger so you don t get to the restaurant & dive head first into the breadbasket. Try a produce + protein snack such as an apple + almonds or celery + sunflower seed butter. 2. Know BEFORE You Go. Do a few minutes of research before you re swept up in a whirlwind of socializing & drinking. This could be as simple as perusing the online menu on your phone on the ride to the restaurant. 3. Order a [employer] BUNDLE. Pair a healthy superfood with a less-healthy craving. It s the only way to honor both your inner health nut and wild child. At a bb joint and really want the pulled pork? Get it but instead of plopping it on a refined grain bun, ask to put it alongside a salad. 4. Limit FLAVORS. Research shows variety stimulates appetite, meaning tasting little bits of many different foods will trigger you to over eat. So if you find yourself facing a tableful of small plates or buffet-style eating, commit to your absolute favorites rather than sampling every option. 5. Entree + ONE. It s often not just the meal that racks up CRAP calories, it s also the add-on apps + drinks + desserts. Focus on your main and skip these extras, or at least just pick your favoriteONE. Smart: Pick an appetizer salad! When [employer] researchers gave women a 100-calorie appetizer ofeither a salad or garlic bread, those who had the tiny salad ended up eating 21% less of their maincourse. My opinion 3 hour Rule: -last meal /snack 3 hours before sleeping ,but mostly try to be done by 7 pm --eat Rich Breakfast, high in protein hard boiled eggs/protein drinks - At least 3 hours break between each meals ,except water --sleep 7 hours at night , that means going to bed early -- drink only water ( no soda or juices) /no Alcohol consumption --cut down on coffee consumption if consuming high amounts Website :You can visit to web site for low carb recipe information as well as visual guide to low carb food: Https://www.dietdoctor.com/ ( visual guide for low carb diet) Limit carb consumption to 80- 100 grams per day. Goals: formal exercise 2-5 x/week as tolerated, start with 10 mins/day to goal of 30 minutes ( -- for exercise, you should shoot for a goal of >150 min per week initially. Depending at whatlevel you are starting, that may seem like an unachievable task. However, the best plan is to just begin to walk or bike or do another activity that you like and track your steps per day. You do not need to pay attention to the time, but you do need to try to increase your exercise every 3 weeks. Other strength exercises, using light weights or training bands may also be useful, especially when combined with regular aerobic exercise. Studies have shown that >200min per week is best to maintain weight loss, so that would be the overall end goal.) Have 3 meals a day-protein source with each meal (structured meal planning) Food journal daily and bring it to all appointments If you want you can REPLACE one of your meals with a liquid meal or frozen meal. This is easy to start and may help with your weight. 1. Liquid meal replacement (Boost, Ensure) 2. Frozen meal (Healthy Choice, Lean Cuisine - sodium under 650mg, can always add veggies to the meal) 3. Powdered protein (Premier Protein) or meal replacement (I like a plant based meal replacement called Healthy Skoop Nutrition - can mix w froz berries and almond milk) -- IN GENERAL - suggestions based on important of our sleep cycle called circadian rhythm and its influence on our gut microbiota and overall health tragetory 1) EAT MOST OF YOUR FOOD IN AM AND EARLY PM 2) NO EATING AT NIGHT 3) EXERCISE DURING DAY 4) BE CONSISTENT WITH MEAL STRUCTURE ie Meals at same time during the day. -- keep record of your food intake - it is easier for us to understand your eating habits and food preferences, looking into the amounts of protein, carbs, and fat in your diet. Good examples of appsto track calories are SNAPP'PAL, LOSE IT. Some patient have found FOODUCATE to help with decisions around food, however choose apps that best suits you. documented [facility] History of Present illness Narrative* Belgica Pineda APRN.CNP - 07/30/2021 8:24 AM EDT Images from the original note were not included. Obesity Medicine Followup Note 07/30/2021 Patient Summary: is 70 year old Male who presents for follow-up evaluation of his obesity and related complications to the [facility] [place]. In our previous visits we have outlined an individualized lifestyle intervention including a personalized nutrition recommendations and physical activity optimization. Lc A Rutt is here today for follow up evaluation for non surgical weight loss medical management. his last office visit was 8month(s) ago with Dr. Caballero. Weight loss since last visit: Today's weight: 298.4 Interval history: Patient reports challenges with snacking, sweets Sleeping late up early; Obesity Medications: Medications: Metformin 1000 mg xr daily Patient reports was on insulin Levemir 10 units when needed; if bs over 200 from Primary Care; Start weight: 335 lbs -- reports fair suppression of appetite and fair increase in satiety -- denies SE Exercise Freq-walking 2x week,30 min; Barriers- challenges with getting registered; Work-related activity: Sedentary Diet Healthy food choices-breakfast -8am, eggs, 2, bread, 2 wheat bread, ; lunch, 1pm,, out eats tuvaluan, fast food, Dinner, 5-6, meat, veges, potato Snack; popcorn, Night time cheese and crackers, peanut butter; popsicles , water; or gator aid G added to water; Structure-some ?Sleep Duration (<6hr)- 4-6 hours Quality-fair, uses cpap Stress Degree-mild Cause- family PAST MEDICAL HISTORY Diagnosis Date Asthma Atrial fibrillation (HCC) S/P successful cardioversion in 2015; maintained on Sotolol and Eliquis Cardiac defibrillator in place April 2011 CHF (congestive heart failure) ([facility]) Class III Depression Diabetes mellitus (HCC) H/O bariatric surgery 08/2019 Hyperlipidemia Hypertension Kidney stone Morbid obesity (HCC) Non-ischemic cardiomyopathy ([facility]) 2011 Biventricular pacing device/defibrillator placed; EF recovered to 65% in 2016 ARMANDO (obstructive sleep apnea) CPAP FUNCTIONAL STATUS: Walk indoors, such as around the house (1.75 METs) Do light work around the house, such as dusting or washing dishes (2.70 METs) Take care of self, that is eating, dressing, bathing, using the toilet (2.75 METs) Walk a block or two on level ground (2.75 METs) Do moderate work around the house such as vacuuming, sweeping floors, or carrying in groceries (3.50 METs) Review of Systems: Review of Systems Constitutional: Negative. HENT: Negative. Eyes: Negative. Respiratory: Negative. Cardiovascular: Negative. Gastrointestinal: Patient reports umbilical hernia Skin: Negative. Allergic/Immunologic: Negative. Neurological: Negative. Hematological: Negative. Psychiatric/Behavioral: Negative. PAST SURGICAL HISTORY Procedure Laterality Date CARDIAC CATH 07/2016 done for positive stress test; Mild CAD of LAD, Circumflex, and RCA; EF 40-45% CARDIOVERSION 2016 Successful cardioversion of atrial fibrillation COLONOSCOPY maybe 10 yrs ago DEFIBRILLATOR SURGERY 12/20/2018 EGD 09/03/2019 GASTRIC WALL TISSUE WITH MILD REACTIVE GASTROPATHY EGD EUS 01/07/2020 ELBOW 03/04/2014 reconstructed elbow LAP SLEEVE GASTRECTOMY 09/03/2019 hernia repair, lysis of adhesions and intraoperative EGD LIVER BIOPSY 07/01/2020 PACEMAKER IMPLANT april [address] [facility] REMOVAL GALLBLADDER 11/2017 TONSILLECTOMY HX 1960's TOOTH EXTRACTION Social History Tobacco Use Smoking status: Never Smoker Smokeless tobacco: Never Used Vaping Use Vaping Use: Never used Substance Use Topics Alcohol use: No Drug use: No PE There were no vitals taken for this visit. Physical Exam Constitutional: Appearance: He is obese. HENT: Mouth/Throat: Mouth: Mucous membranes are moist. Pharynx: Oropharynx is clear. Cardiovascular: Rate and Rhythm: Normal rate and regular rhythm. Pulses: Normal pulses. Heart sounds: Normal heart sounds. Pulmonary: Effort: Pulmonary effort is normal. Breath sounds: Normal breath sounds. Abdominal: General: Bowel sounds are normal. Palpations: Abdomen is soft. Comments: Umbilical hernia noted right of umbilicus. Musculoskeletal: General: Normal range of motion. Cervical back: Normal range of motion and neck supple. Skin: General: Skin is warm and dry. Capillary Refill: Capillary refill takes less than 2 seconds. Neurological: Mental Status: He is alert and oriented to person, place, and time. Psychiatric: Mood and Affect: Mood normal. Behavior: Behavior normal. Thought Content: Thought content normal. Judgment: Judgment normal. Results No visits with results within 3 Month(s) from this visit. Latest known visit with results is: Results Only on 12/21/2020 Component Date Value Ref Range Status Glycerin Supervisor 12/21/2020 Final Value:Provider KAYLA your patient LC [facility]UBBS has NOT started their Sheryl program, time has . Sheryl program: PATIENT SAFETY AND FALL PREVENTION Impression: 70 year old male with class 3 obesity, here for non surgical weight loss medical management. a Body mass index is 45.75 kg/m . Assessment/Plan: ASSESSMENT/PLAN: 1. Class 3 severe obesity with body mass index (BMI) of 45.0 to 49.9 in adult, unspecified obesity type, unspecified whether serious comorbidity present (HCC) - ICD9: 278.01, V85.42, ICD10: E66.01, Z68.42 (primary diagnosis) Weight increasing - Behavioral and pharmacological intervention Counseled patient at length recommend low-carb low sugar diet; Managing maladaptive eating behaviors and adding resistance exercise. Continue low-carb diet consider adding some weights and increasing cardio exercise and increase non exercise activity thrombogenesis. I have also reviewed the possibility of using weight loss medications in an effort to reduce his appetite. I reviewed the different therapeutic options including phentermine, Qsymia, Contrave, Saxenda, topiramate, metformin, bupropion and Effexor which all have been associated with weight loss.At this time we agreed on the following: Continue metformin 1000 mg daily Clarification on Levemir insulin pending records from outside primary care physician I have reviewed the patient with the patient the pros and cons of taking these medications 2. Dietary counseling and surveillance - ICD9: V65.3, ICD10: Z71.3 Reviewed principles of energy metabolism caloric intake and expenditure and rationale for treatmentprogram. Also reinforced need for reduced calorie low-fat diet increase physical activity. 3. BMI 45.0-49.9, adult (HCC) - ICD9: V85.42, ICD10: Z68.42 Weight increasing - Behavioral and pharmacological intervention 4. Central sleep apnea - ICD9: 780.57, ICD10: G47.31 Continue using CPAP 5. Cardiomyopathy, unspecified type (HCC) - ICD9: 425.4, ICD10: I42.9 Stable at this time follow-up with tax commissioner and primary care physician as warranted 6. Essential hypertension - ICD9: 401.9, ICD10: I10 - suboptimal control - Continue current medication(s) - Recommended regular aerobic exercise. - Recommend home blood pressure monitoring, to bring results in on next visit - Goal of BP <130/80 7. Implantable cardioverter-defibrillator (ICD) in situ - ICD9: V45.02, ICD10: Z95.810 Stable at this time follow-up with tax commissioner as warranted 8. Type 2 diabetes mellitus without retinopathy (HCC) - ICD9: 250.00, ICD10: E11.9 Poor adherence to plan of care. - Continue current medications - Encouraged regular aerobic exercise and weight loss - BP goal of <130/80 Hemoglobin A1c pending CMP pending 9. Obstructive sleep apnea (adult) (pediatric) - ICD9: 327.23, ICD10: G47.33 Continue using CPAP 10. Status post gastric sleeve procedure ICD 10 CM Z90.3 Continue multivitamin Follow-up with bariatric team Nutritional consult 11. Umbilical hernia without obstruction or gangrene ICD 10 CM K42.9 Follow-up with bariatric team status post gastric sleeve -- We discussed several strategies to track food intake and increase mindfulness around eating. We will start with a self-directed attempt in combination with the above recommendations. -- Encouraged consistency of exercise, with an overall goal of 200 minutes per week. This dose of exercise has been effective in weight loss and maintenance. We discussed that cardiovascular exerciseis most beneficial for weight loss initially, but it is important to combine resistance training asthere is a loss of lean muscle mass with weight loss. Belgica Pineda APRN [facility] BMI Obesity Medicine I spent a total of 45 minutes on the date of the service which included preparing to see the patient, [id number] patient care, completing clinical documentation, obtaining and/or reviewing separately obtained history, performing a medically appropriate examination, counseling and educating the pat ient/family/caregiver, ordering medications, tests, or procedures, communicating with other HCPs (not separately reported), independently interpreting results (not separately reported), communicatingresults to the patient/family/caregiver and care coordination (not separately reported) 5A's- Assess: I assessed behavioral health risk/factors affecting --- Asked about/assess behavioral health risk(s) and factors affecting choice of behavior change goals --- somewhat sedentry lifestyle ---?snacking ---Lack of exercise Advise: clear, specific, personalized behavior change advice. ---I gave very clear, specific, and personalized behavior change adviced, including information about personal health harms and benefits. Agree: Patient agrees with selected appropriate treatment goals and methods to change behavior Assist: Provided IBT w self-help, handouts, teaching skills and support Using behavior change techniques with self-help and Counseling in achieving Goals. Also discussed supplementing with adjunctive medical treatments when appropriate. Arrange: follow up scheduled, handouts given to patient. documented in this [facility]26-2022 Miscellaneous Notes* Telephone Encounter - Kurtis Pelaez MA - 06/01/2021 2:52 PM EDT He see's Belgica 07/30/2021 * Telephone Encounter - Valerie Caballero MD - 06/01/2021 2:10 PM EDT Recommend him to be seen. * Telephone Encounter - Kurtis Pelaez MA - 06/01/2021 1:50 PM EDT Patient interfaced requesting the following refill. Pending Prescriptions Disp Refills METFORMIN ER 500 MG TABLET,EXTENDED RELEASE 24 HR 180 tablet 1 Sig: TAKE 2 TABLETS BY MOUTH DAILY WITH BREAKFAST. DELL: Yes Patient last appointment: 12/16/2020 Next Appointment: Visit date not found Patient Phone numbers: [phone] (home) Request is for script(s) to be escript to pharmacy. Kurtis Pelaez MA documented in this encounterK[facility] + Plan note Future Appointments Appointment Date:04/27/2023 02:00:00 PM Scheduled Provider: Location:[facility] Appointment Type:CV OV Appointment Date:06/13/2023 08:45:00 AM Scheduled Provider: Location:[facility] Appointment Type:CV Remote Procedure [facility] Evaluation note* Diagnosis Class 3 severe obesity with body mass index (BMI) of 45.0 to 49.9 in adult, unspecified obesity type, unspecified whether serious comorbidity present (HCC)- Primary Dietary counseling and surveillance Dietary surveillance and counseling BMI 45.0-49.9, adult (HCC) Body Mass Index 45.0-49.9, adult Central sleep apnea Unspecified sleep apnea Cardiomyopathy, unspecified type (HCC) Essential hypertension Unspecified essential hypertension Implantable cardioverter-defibrillator (ICD) in situ Type 2 diabetes mellitus without retinopathy (HCC) Type II or unspecified type diabetes mellitus without mention of complication, not stated as uncontrolled Obstructive sleep apnea (adult) (pediatric) S/P gastric sleeve procedure Umbilical hernia without obstruction or gangrene Umbilical hernia without mention of obstruction or gangrene [facility] Diagnosis Obstructive sleep apnea (adult) (pediatric)- Primary CSA (central sleep apnea) Unspecified sleep apnea Class 3 severe obesity with body mass index (BMI) of 45.0 to 49.9 in adult, unspecified obesity type, unspecified whether serious comorbidity present (HCC) [facility] Diagnosis Dietary counseling and surveillance- Primary Dietary surveillance and counseling [facility]* Diagnosis S/P laparoscopic sleeve gastrectomy- Primary Bariatric surgery status Class 3 severe obesity with body mass index (BMI) of 45.0 to 49.9 in adult, unspecified obesity type, unspecified whether serious comorbidity present (HCC) Essential hypertension Unspecified essential hypertension Umbilical hernia with obstruction, without gangrene Umbilical hernia with obstruction Type 2 diabetes mellitus without retinopathy (HCC) Type II or unspecified type diabetes mellitus without mention of complication, not stated as uncontrolled [facility]* Diagnosis Class 3 severe obesity due to excess calories with body mass index (BMI) of 45.0 to 49.9 in adult, unspecified whether serious comorbidity present (HCC)- Primary BMI 40.0-44.9, adult (HCC) Body Mass Index 40.0-44.9, adult Dietary counseling and surveillance Dietary surveillance and counseling Cardiomyopathy, unspecified type (HCC) Essential hypertension Unspecified essential hypertension Implantable cardioverter-defibrillator (ICD) in situ NAFLD (nonalcoholic fatty liver disease) Other chronic nonalcoholic liver disease Obstructive sleep apnea (adult) (pediatric) Type 2 diabetes mellitus without retinopathy (HCC) Type II or unspecified type diabetes mellitus without mention of complication, not stated as uncontrolled documented in this encounter [facility] note* Diagnosis Onset Date Resolution Status Back pain acute Segmental and somatic dysfunction of lumbar region acute Segmental and somatic dysfunction of pelvic region acute Segmental and somatic dysfunction of thoracic region acute DDD (degenerative disc disease) chronic Cardiomyopathy, idiopathic c hronic Persistent atrial fibrillation chronic Presence of biventricular im plantable cardioverter-defibrillator (ICD) resolve d Atherosclerosis of coronary artery of [place] heart without angina pectoris chronic Cardiomyopathy, idiopathic c hronic HTN (hypertension), benign c hronic Hyperlipidemia chronic Persistent atrial fibrillation chronic Presence of biventricular im plantable cardioverter-defibrillator (ICD) resolve d [facility] Work Phone: Evaluation note* Diagnosis Onset Date Resolution Status Back pain acute Segmental and somatic dysfunction of lumbar region acute Segmental and somatic dysfunction of pelvic region acute Segmental and somatic dysfunction of thoracic region acute DDD (degenerative disc disease) chronic Cardiomyopathy, idiopathic c hronic Persistent atrial fibrillation chronic Presence of biventricular im plantable cardioverter-defibrillator (ICD) resolve d Atherosclerosis of coronary artery of [place] heart without angina pectoris chronic Cardiomyopathy, idiopathic c hronic HTN (hypertension), benign c hronic Hyperlipidemia chronic Persistent atrial fibrillation chronic Presence of biventricular im plantable cardioverter-defibrillator (ICD) resolve d Asthma chronic Morbid (severe) obesity due to excess calories chronic ARMANDO (obstructive sleep apnea) chronic Back pain acute Segmental and somatic dysfunction of lumbar region acute Segmental and somatic dysfunction of pelvic region acute Segmental and somatic dysfunction of thoracic region acute DDD (degenerative disc disease) chronic Lumbar spondylolysis acute [facility] Work Phone: Evaluation note* Diagnosis Onset Date Resolution Status Back pain acute Segmental and somatic dysfunction of lumbar region acute Segmental and somatic dysfunction of pelvic region acute Segmental and somatic dysfunction of thoracic region acute DDD (degenerative disc disease) chronic Cardiomyopathy, idiopathic c hronic Presence of biventricular im plantable cardioverter-defibrillator (ICD) resolve d [facility] Work Phone: Evaluation note* Diagnosis Onset Date Resolution Status Back pain acute Segmental and somatic dysfunction of lumbar region acute Segmental and somatic dysfunction of pelvic region acute Segmental and somatic dysfunction of thoracic region acute DDD (degenerative disc disease) chronic Cardiomyopathy, idiopathic c hronic Presence of biventricular im plantable cardioverter-defibrillator (ICD) resolve d Asthma chronic Morbid (severe) obesity due to excess calories chronic ARMANDO (obstructive sleep apnea) [facility] Work Phone: Evaluation note* Diagnosis Onset Date Resolution Status Asthma chronic Morbid (severe) obesity due to excess calories chronic ARMANDO (obstructive sleep apnea) [facility] Work Phone: Evaluation noteNo assessment information available [facility] Work Phone: Evaluation note* Diagnosis Atrial fibrillation, unspecified type (HCC)- Primary Pacemaker Cardiac pacemaker in situ Pacemaker reprogramming/check Fitting and adjustment of cardiac pacemaker documented in this encounter [facility] note* Diagnosis Atrial fibrillation, persistent (HCC)- Primary Atrial fibrillation Cardiac resynchronization therapy defibrillator (INCINERATOR ATTENDANT-D) in place Non-ischemic cardiomyopathy (HCC) Other primary cardiomyopathies documented in this encounter [facility] note* Diagnosis Pacemaker reprogramming/check Fitting and adjustment of cardiac pacemaker documented in this encounter [facility] note* Diagnosis S/P exploratory laparotomy- Primary Other postprocedural status S/P repair of ventral hernia Other postprocedural status Encounter for staple removal Encounter for removal of sutures documented in this encounter [facility] note* Diagnosis Atrial tachycardia (HCC)- Primary Other specified cardiac dysrhythmias documented in this encounter [facility] note* Diagnosis Atrial fibrillation, persistent (HCC)- Primary Atrial fibrillation documented in this encounter [facility] note* Diagnosis Pacemaker reprogramming/check Fitting and adjustment of cardiac pacemaker documented in this encounter [facility] note* Diagnosis Splenic lesion- Primary Disease of spleen, unspecified Splenomegaly Splenomegaly, not elsewhere classified documented in this encounter [facility] note* Diagnosis Screening for nephropathy- Primary documented in this encounter [facility] note* Diagnosis Splenomegaly, not elsewhere classified documented in this encounter [facility] note* Diagnosis Ureteral dilatation- Primary Other specified disorder of kidney and ureter Nephrolithiasis Calculus of kidney Lesion of spleen Disease of spleen, unspecified Splenomegaly documented in this encounter [facility] course Narrative No data available for this section [facility] Hospital Discharge instructions No data available for this section [facility] Progress note No data available for this section [facility] Reason for referral (narrative)* Outpatient Procedure (Routine) - Authorized Specialty Diagnoses / Procedures Referred By Contac t Ref[facility] Diagnoses Atrial fibrillation, unspecified type (HCC) Pacemaker Procedures ECG COMPLETE ECG ROUTINE ECG W/LEAST 12 LDS W/I&R Wali Bravo MD [address] [place] [address] [address] Referral ID Status Reason Start Date Expiration Date Visits Requested Visits Authorized [id number] Authorized Auto-Generat ed Referral 08/15/2023 08/14/2024 1 1 [facility] for referral (narrative)* Outpatient Procedure (Routine) - Closed Specialty Diagnoses / Procedures Referred By Contac t Referred To Contact [facility] Diagnoses Pacemaker reprogramming/check Procedures CARDIAC IMPLANTABLE DEVICE CHECK Card Ep Device Clinic Main [address] [place] [id number] [address] Referral ID Status Reason Start Date Expiration Date V isits Requested Visits Authorized [id number] Closed Auto-Generate d Referral 08/15/2023 08/14/2024 1 1 * Outpatient Procedure (Routine) - Closed Specialty Diagnoses / Procedures Referred By Contac t Referred To Contact [facility] Diagnoses Pacemaker reprogramming/check Procedures CARDIAC IMPLANTABLE DEVICE CHECK Card Ep Device Clinic Main [address] [place] [id number] [address] Referral ID Status Reason Start Date Expiration Date V isits Requested Visits Authorized [id number] Closed Auto-Generate d Referral 08/15/2023 08/14/2024 1 1 [facility] for referral (narrative)* Outpatient Procedure (Routine) - New Request Specialty Diagnoses / Procedures Referred By Contac t Referred To Contact [facility] Diagnoses Atrial tachycardia (HCC) Procedures ECG COMPLETE ECG ROUTINE ECG W/LEAST 12 LDS W/I&R Wali Bravo MD [address] [place] [id number] [facility] Vascular [address] [address] Referral ID Status Reason Start Date Expiration Date Visits Requested Visits Authorized [id number] New Request Auto-Generat ed Referral 2023 12/11/2024 1 1 [facility] Outpatient Procedure (Routine) - Closed Specialty Diagnoses / Procedures Referred By Contac t Referred To Contact [facility] Diagnoses Pacemaker reprogramming/check Procedures CARDIAC IMPLANTABLE DEVICE CHECK Card Ep Device Clinic Main [address] [place] [id number] [address] Referral ID Status Reason Start Date Expiration Date V isits Requested Visits Authorized [id number] Closed Auto-Generate d Referral 01/10/2024 01/09/2025 1 1 * Outpatient Procedure (Routine) - Closed Specialty Diagnoses / Procedures Referred By Contsotero t Referred To Contact [facility] Diagnoses Pacemaker reprogramming/check Procedures CARDIAC IMPLANTABLE DEVICE CHECK Card Ep Device Clinic Main [address] [place] [address] [address] Referral ID Status Reason Start Date Expiration Date V isits Requested Visits Authorized [id number] Closed Auto-Generate d Referral 01/10/2024 01/09/2025 1 1 [facility] ([facility]ative)No reason for referral information [facility]WMari[facility] Work [facility]: Reason for visit Narrative* Outpatient Procedure (Routine) - Closed Specialty Diagnoses / Procedures Referred By Contac t Referred To Contact [facility] Diagnoses Pacemaker reprogramming/check Procedures CARDIAC IMPLANTABLE DEVICE CHECK Card Ep Device Clinic Main [address] [place] [address] [address] Referral ID Status Reason Start Date Expiration Date V isits Requested Visits Authorized [id number] Closed Auto-Generate d Referral 08/15/2023 08/14/2024 1 1 [facility] for visit Narrative* Outpatient Procedure (Routine) - Closed Specialty Diagnoses / Procedures Referred By Hillary moreno Referred [facility] Diagnoses Pacemaker reprogramming/check Procedures CARDIAC IMPLANTABLE DEVICE CHECK Card Ep Device Clinic Main [address] [place] [address] [facility] [address] [place] [address] Referral ID Status Reason Start Date Expiration Date V isits Requested Visits Authorized [id number] Closed Auto-Generate d Referral 01/10/2024 01/09/2025 1 1 [facility] for visit Narrative* MRI/CT (Routine) - Closed Specialty Diagnoses / Procedures Referred By Hillary moreno Referred To Contact CT IMAGING Diagnoses Splenomegaly, not elsewhere classified Procedures CT ABD/PEL W IVCON CT ABD & PELVIS W/CONTRAST Lucie Reynolds APRN.ENVIRONMENTAL SCIENCE TECHNICIAN [address] [place] [address] Phone: tel: fax: [facility] [place] [phone] Referral ID Status Reason Start Date Expiration Date V isits Requested Visits Authorized [id number] Closed Auto-Generate d Referral 03/05/2024 04/04/2025 1 1 [facility] Summary Purpose Family History Relationship Condition Age at Onset Recorded Date/T jose d father Malignant neoplasm Unknown mother Malignant neoplasm Unknown sister Myocardial infarction Unknown Diabetes mellitus Unknown Cardiac disease Unknown uncle Coronary artery disease Unknown Advance Directives Latest Code Status on File Code Status Date Activated Date Inactivated Comments Full Code 06/02/2015 11:17 AM 06/03/2015 3:03 PM Full Code 04/11/2011 9:09 PM 04/12/2011 1:37 PM Documents on File Type Date Recorded Patient Contract Specialist Expl anation Advance Directive(s) 07/01/2020 6:53 AM Advance Directive(s) 01/07/2020 8:46 AM Advance Directive(s) 09/03/2019 7:02 AM Documents on File Type Date Recorded Patient Contract Specialist Expl anation Advance Directive(s) 07/01/2020 6:53 AM Advance Directive(s) 01/07/2020 8:46 AM Advance Directive(s) 09/03/2019 7:02 AM Advance Directive Response Recorded Date/ Time Advance Directives Yes January 11:07am Living Will Yes November 26 4:55am Power of Molybden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 Yes November 26, 2020 4:55am Advance Directive Response Recorded Date/ Time Advance Directives Yes January 12:07pm Living Will Yes November 26 5:55am Power of Molybden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 Yes November 26, 2020 5:55am Advance Directive Response Recorded Date/ Time Advance Directives Yes January 11:07am Living Will No November 12 5:56pm Power of Molybden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 No November 12 5:56pm Advance Directive Response Recorded Date/ Time Advance Directives Yes July 16 10:52am Reason for Referral Specialty Diagnoses / Procedures Referred By Hillary moreno Referred To Contact Nutrition Diagnoses S/P laparoscopic sleeve gastrectomy Procedures CONSULT TO NUTRITION THERAPY OFFICE/OUTPATIENT [facility] 60-74 MINUTES Aileen Heart GATEHOUSE ATTENDANT.ENVIRONMENTAL SCIENCE TECHNICIAN 1 [facility] [address] [place] [address] Referral ID Status Reason Start Date Expiration Date Visits Requested Visits Authorized [id number] Authorized PCP Requested Referral 08/20/2021 11/18/2021 1 1 Specialty Diagnoses / Procedures Referred By Hillary moreno Referred To Contact Belgica Pineda GATEHOUSE ATTENDANT.ENVIRONMENTAL SCIENCE TECHNICIAN [address] [place] [address] Referral ID Status Reason Start Date Expiration Date Visits Re quested Visits Authorized [id number] Closed 1 1 Referral ID Status Reason Start Date Expiration Date Visits Re quested Visits Authorized [id number] Closed 1 1 Referral ID Status Reason Start Date Expiration Date Visits Re quested Visits Authorized [id number] Closed 1 1 Specialty Diagnoses / Procedures Referred By Contact Referred To Contact [facility] [place] Diagnoses Atrial fibrillation, persistent (HCC) Cardiac resynchronization therapy defibrillator (INCINERATOR ATTENDANT-D) in place Non-ischemic cardiomyopathy (HCC) Procedures CONSULT TO CARDIOLOGY OFFICE/OUTPATIENT [facility] MDM 60 MINUTES Wali Bravo MD [address] [place] [address] Card Clinical Main [address] [place] [phone] Referral ID Status Reason Start Date Expiration Date Visits Requested Visits Authorized [id number] Authorized PCP Requested Referral 10/02/2023 10/01/2024 1 1 Specialty Diagnoses / Procedures Referred By Contac t Referred To Contact [facility] [place] Diagnoses Atrial fibrillation, persistent (HCC) Cardiac resynchronization therapy defibrillator (INCINERATOR ATTENDANT-D) in place Non-ischemic cardiomyopathy (HCC) Procedures CARDIOVASCULAR MEDICINE OP FOLLOW UP APPT ORDER Wali Bravo MD [address] [place] [id number] [facility] Vascular [place] [phone] Referral ID Status Reason Start Date Expiration Date Visits Requested Visits Authorized [id number] Ref Not Required PCP Requested Referral 10/02/2023 10/01/2024 1 1 Specialty Diagnoses / Procedures Referred By Contac t Referred To Contact [facility] [place] Procedures CARDIOVASCULAR MEDICINE OP FOLLOW UP APPT ORDER Arturo Cobos, GATEHOUSE ATTENDANT.ENVIRONMENTAL SCIENCE TECHNICIAN [address] [place] [address] [facility] [address] [address] Referral ID Status Reason Start Date Expiration Date Visits Requested Visits Authorized [id number] Ref Not Required PCP Requested Referral 01/10/2024 01/09/2025 1 1 Specialty Diagnoses / Procedures Referred By Contac t Referred To Contact CT IMAGING Diagnoses Splenomegaly, not elsewhere classified Procedures CT ABD/PEL W IVCON CT ABD & PELVIS W/CONTRAST Lucie Reynolds, GATEHOUSE ATTENDANT.ENVIRONMENTAL SCIENCE TECHNICIAN [address] [place] [address] [place] [address] Referral ID Status Reason Start Date Expiration Date Visits Requested Visits Authorized [id number] New Request Auto-Generat ed Referral 03/05/2024 04/04/2025 1 1 Chief Complaint and Reason for Visit Chief Complaint Back pain sees KR @ 3pm 6 M FU INCINERATOR ATTENDANT-D f/u @ 2:30 pain and swelling distal/lateral > medial/proximal Radiculopathy, lumbosacral region/RTX HERE Reason for Visit Back pain Segmental and somatic dysfunction of lumbar region Segmental and somatic dysfunction of pelvic region Segmental and somatic dysfunction of thoracic region DDD (degenerative disc disease) Cardiomyopathy, idiopathic Persistent atrial fibrillation Presence of biventricular implantable cardioverter-defibrillator (ICD) Atherosclerosis of coronary artery of [place] heart without angina pectoris Cardiomyopathy, idiopathic HTN (hypertension), benign Hyperlipidemia Persistent atrial fibrillation Presence of biventricular implantable cardioverter-defibrillator (ICD) Chief Complaint Back pain sees KR @ 3pm 6 M FU INCINERATOR ATTENDANT-D f/u @ 2:30 pain and swelling distal/lateral > medial/proximal 6 M FU Back pain 3 mos remote INCINERATOR ATTENDANT-D f/u Radiculopathy, lumbosacral region/RTX HERE LUMBAR PAIN Rm 3 Reason for Visit Back pain Segmental and somatic dysfunction of lumbar region Segmental and somatic dysfunction of pelvic region Segmental and somatic dysfunction of thoracic region DDD (degenerative disc disease) Cardiomyopathy, idiopathic Persistent atrial fibrillation Presence of biventricular implantable cardioverter-defibrillator (ICD) Atherosclerosis of coronary artery of [place] heart without angina pectoris Cardiomyopathy, idiopathic HTN (hypertension), benign Hyperlipidemia Persistent atrial fibrillation Presence of biventricular implantable cardioverter-defibrillator (ICD) Asthma Morbid (severe) obesity due to excess calories ARMANDO (obstructive sleep apnea) Back pain Segmental and somatic dysfunction of lumbar region Segmental and somatic dysfunction of pelvic region Segmental and somatic dysfunction of thoracic region DDD (degenerative disc disease) Lumbar spondylolysis Chief Complaint Back pain 3 mos remote INCINERATOR ATTENDANT-D f/u Radiculopathy, lumbosacral region/RX HERE KUB Reason for Visit Back pain Segmental and somatic dysfunction of lumbar region Segmental and somatic dysfunction of pelvic region Segmental and somatic dysfunction of thoracic region DDD (degenerative disc disease) Cardiomyopathy, idiopathic Presence of biventricular implantable cardioverter-defibrillator (ICD) Chief Complaint 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 6 M FU Radiculopathy, lumbosacral region/RX HERE Reason for Visit Back pain Segmental and somatic dysfunction of lumbar region Segmental and somatic dysfunction of pelvic region Segmental and somatic dysfunction of thoracic region DDD (degenerative disc disease) Cardiomyopathy, idiopathic Presence of biventricular implantable cardioverter-defibrillator (ICD) Asthma Morbid (severe) obesity due to excess calories ARMANDO (obstructive sleep apnea) Chief Complaint 6 M FU Radiculopathy, lumbosacral region/RX HERE right foot injury HIP/BACK PAIN RX HERE EORDER Reason for Visit Asthma Morbid (severe) obesity due to excess calories ARMANDO (obstructive sleep apnea) Chief Complaint right foot injury HIP/BACK PAIN RX HERE EORDER Chief Complaint HIP/BACK PAIN RX HER E EORDER EORDER BACK -- AQUA/RX HERE Chief Complaint Admit Date REEVAL August 14, 2024 8:55a m Reason for Visit Admit Date Segmental and somatic dysfunction of lum bar region August 14, 2024 8:55am Segmental and somatic dysfunction of pel [place] region August 14, 2024 8:55am Segmental and somatic dysfunction of tho racic region August 14, 2024 8:55am DDD (degenerative disc disease) August 8:55am Spondylosis of lumbosacral r egion without myelopathy or radiculopathy August 14, 2024 8:55am Chief Complaint Admit Date REEVAL August 14, 2024 8:55a m RIGHT RIB August 16, 2024 4:53 pm RIB PAIN August 22, 2024 3:37 pm Reason for Visit Admit Date Back pain August 14, 2024 8:55a m Segmental and somatic dysfunction of lum bar region August 14, 2024 8:55am Segmental and somatic dysfunction of pel [place] region August 14, 2024 8:55am Segmental and somatic dysfunction of tho racic region August 14, 2024 8:55am DDD (degenerative disc disease) August 8:55am Additional Source Comments (unrecognized sect ion and content) No Status Records FoundNo Status Records FoundNo Status Records FoundNo Status Records FoundNo Status Records FoundNo Status Records FoundNo Status Records Found INFORMATION SOURCE (unrecogn ized section and content) DATE CREATED AUTHOR 07/25/2017 [facility] DATE CREATED AUTHOR AUTHOR'S ORGANIZ ATION 08/02/2017 [facility] DATE CREATED AUTHOR AUTHOR'S ORGANIZ ATION 09/19/2020 [facility] DATE CREATED AUTHOR AUTHOR'S ORGANIZ ATION 07/12/2023 [facility] ([place]) DATE CREATED AUTHOR AUTHOR'S ORGANIZ ATION 11/17/2023 [facility] DATE CREATED AUTHOR AUTHOR'S ORGANIZ ATION 08/17/2024 [facility] DATE CREATED AUTHOR AUTHOR'S KASSY SPAIN 08/20/2024 [facility] Source Comments (unrecognize d section and content) In the event this informatio n is protected by the Federal Confidentiality of Alcohol and Drug Abuse Patient Records regulations: The Federal rules restrict any use of the information to criminally investigate or prosecute any alcohol or drug abuse patient.[facility] the event this information is protected by the Federal Confidentiality of Alcohol and Drug Abuse Patient Records regulations: The Federal rules restrict any use of the information to criminally investigate or prosecute any alcohol or drug abuse patient.[facility] the event this information is protected by the Federal Confidentiality of Alcohol and Drug Abuse Patient Records regulations: The Federal rules restrict any use of the information to criminally investigate or prosecute any alcohol or drug abuse patient.[facility] Memorial[facility] the event this information is protected by the Federal Confidentiality of Alcohol and Drug Abuse Patient Records regulations: The Federal rules restrict any use of the information to criminally investigate or prosecute any alcohol or drug abuse patient.[facility] the event this information is protected by the Federal Confidentiality of Alcohol and Drug Abuse Patient Records regulations: The Federal rules restrict any use of the information to criminally investigate or prosecute any alcohol or drug abuse patient.[facility] MemorialIn the event this information is protected by the Federal Confidentiality of Alcohol and Drug Abuse Patient Records regulations: The Federal rules restrict any use of the information to criminally investigate or prosecute any alcohol or drug abuse patient.[facility] MemorialIn the event this information is protected by the Federal Confidentiality of Alcohol and Drug Abuse Patient Records regulations: The Federal rules restrict any use of the information to criminally investigate or prosecute any alcohol or drug abuse patient.[facility] MemorialIn the event this information is protected by the Federal Confidentiality of Alcohol and Drug Abuse Patient Records regulations: The Federal rules restrict any use of the information to criminally investigate or prosecute any alcohol or drug abuse patient.[facility] MemorialIn the event this information is protected by the Federal Confidentiality of Alcohol and Drug Abuse Patient Records regulations: The Federal rules restrict any use of the information to criminally investigate or prosecute any alcohol or drug abuse patient.[facility] MemorialIn the event this information is protected by the Federal Confidentiality of Alcohol and Drug Abuse Patient Records regulations: The Federal rules restrict any use of the information to criminally investigate or prosecute any alcohol or drug abuse patient.[facility] MemorialIn the event this information is protected by the Federal Confidentiality of Alcohol and Drug Abuse Patient Records regulations: The Federal rules restrict any use of the information to criminally investigate or prosecute any alcohol or drug abuse patient.[facility] MemorialIn the event this information is protected by the Federal Confidentiality of Alcohol and Drug Abuse Patient Records regulations: The Federal rules restrict any use of the information to criminally investigate or prosecute any alcohol or drug abuse patient.[facility] MemorialIn the event this information is protected by the Federal Confidentiality of Alcohol and Drug Abuse Patient Records regulations: The Federal rules restrict any use of the information to criminally investigate or prosecute any alcohol or drug abuse patient.[facility] MemorialIn the event this information is protected by the Federal Confidentiality of Alcohol and Drug Abuse Patient Records regulations: The Federal rules restrict any use of the information to criminally investigate or prosecute any alcohol or drug abuse patient.[facility] MemorialIn the event this information is protected by the Federal Confidentiality of Alcohol and Drug Abuse Patient Records regulations: The Federal rules restrict any use of the information to criminally investigate or prosecute any alcohol or drug abuse patient.[facility] MemorialIn the event this information is protected by the Federal Confidentiality of Alcohol and Drug Abuse Patient Records regulations: The Federal rules restrict any use of the information to criminally investigate or prosecute any alcohol or drug abuse patient.[facility] MemorialIn the event this information is protected by the Federal Confidentiality of Alcohol and Drug Abuse Patient Records regulations: The Federal rules restrict any use of the information to criminally investigate or prosecute any alcohol or drug abuse patient.[facility] MemorialIn the event this information is protected by the Federal Confidentiality of Alcohol and Drug Abuse Patient Records regulations: The Federal rules restrict any use of the information to criminally investigate or prosecute any alcohol or drug abuse patient.[facility] MemorialIn the event this information is protected by the Federal Confidentiality of Alcohol and Drug Abuse Patient Records regulations: The Federal rules restrict any use of the information to criminally investigate or prosecute any alcohol or drug abuse patient.[facility] MemorialIn the event this information is protected by the Federal Confidentiality of Alcohol and Drug Abuse Patient Records regulations: The Federal rules restrict any use of the information to criminally investigate or prosecute any alcohol or drug abuse patient.[facility] MemorialIn the event this information is protected by the Federal Confidentiality of Alcohol and Drug Abuse Patient Records regulations: The Federal rules restrict any use of the information to criminally investigate or prosecute any alcohol or drug abuse patient.[facility] MemorialIn the event this information is protected by the Federal Confidentiality of Alcohol and Drug Abuse Patient Records regulations: The Federal rules restrict any use of the information to criminally investigate or prosecute any alcohol or drug abuse patient.[facility] MemorialIn the event this information is protected by the Federal Confidentiality of Alcohol and Drug Abuse Patient Records regulations: The Federal rules restrict any use of the information to criminally investigate or prosecute any alcohol or drug abuse patient.[facility] MemorialIn the event this information is protected by the Federal Confidentiality of Alcohol and Drug Abuse Patient Records regulations: The Federal rules restrict any use of the information to criminally investigate or prosecute any alcohol or drug abuse patient.[facility] MemorialIn the event this information is protected by the Federal Confidentiality of Alcohol and Drug Abuse Patient Records regulations: The Federal rules restrict any use of the information to criminally investigate or prosecute any alcohol or drug abuse patient.[facility] MemorialIn the event this information is protected by the Federal Confidentiality of Alcohol and Drug Abuse Patient Records regulations: The Federal rules restrict any use of the information to criminally investigate or prosecute any alcohol or drug abuse patient.[facility] MemorialIn the event this information is protected by the Federal Confidentiality of Alcohol and Drug Abuse Patient Records regulations: The Federal rules restrict any use of the information to criminally investigate or prosecute any alcohol or drug abuse patient.[facility] MemorialIn the event this information is protected by the Federal Confidentiality of Alcohol and Drug Abuse Patient Records regulations: The Federal rules restrict any use of the information to criminally investigate or prosecute any alcohol or drug abuse patient.[facility] MemorialIn the event this information is protected by the Federal Confidentiality of Alcohol and Drug Abuse Patient Records regulations: The Federal rules restrict any use of the information to criminally investigate or prosecute any alcohol or drug abuse patient.[facility] MemorialIn the event this information is protected by the Federal Confidentiality of Alcohol and Drug Abuse Patient Records regulations: The Federal rules restrict any use of the information to criminally investigate or prosecute any alcohol or drug abuse patient.[facility] MemorialIn the event this information is protected by the Federal Confidentiality of Alcohol and Drug Abuse Patient Records regulations: The Federal rules restrict any use of the information to criminally investigate or prosecute any alcohol or drug abuse patient.[facility] MemorialIn the event this information is protected by the Federal Confidentiality of Alcohol and Drug Abuse Patient Records regulations: The Federal rules restrict any use of the information to criminally investigate or prosecute any alcohol or drug abuse patient.[facility] MemorialIn the event this information is protected by the Federal Confidentiality of Alcohol and Drug Abuse Patient Records regulations: The Federal rules restrict any use of the information to criminally investigate or prosecute any alcohol or drug abuse patient.[facility] MemorialIn the event this information is protected by the Federal Confidentiality of Alcohol and Drug Abuse Patient Records regulations: The Federal rules restrict any use of the information to criminally investigate or prosecute any alcohol or drug abuse patient.[facility] MemorialIn the event this information is protected by the Federal Confidentiality of Alcohol and Drug Abuse Patient Records regulations: The Federal rules restrict any use of the information to criminally investigate or prosecute any alcohol or drug abuse patient.[facility] MemorialIn the event this information is protected by the Federal Confidentiality of Alcohol and Drug Abuse Patient Records regulations: The Federal rules restrict any use of the information to criminally investigate or prosecute any alcohol or drug abuse patient.[facility] MemorialIn the event this information is protected by the Federal Confidentiality of Alcohol and Drug Abuse Patient Records regulations: The Federal rules restrict any use of the information to criminally investigate or prosecute any alcohol or drug abuse patient.[facility] MemorialIn the event this information is protected by the Federal Confidentiality of Alcohol and Drug Abuse Patient Records regulations: The Federal rules restrict any use of the information to criminally investigate or prosecute any alcohol or drug abuse patient.[facility] Reason for Visit (unrecogniz ed section and content) Reason Comments Refill Request Reason Comments Weight Problem Reason Comments Established Patient sleep follow up Reason Comments Established Patient Reason Comments Established Patient Reason Comments Refill Request Reason Comments Appointment Reason Comments Missed Appointment Reason Comments ICD Atrial Fibrillation Reason Comments Post Op Ex lap, MDEARDO, UHR Reason Comments Future Appointment DCC Reason Comments Patient Education DCC Reason Comments Actionable Findings Follow Up Reason Comments Forms Reason Comments Radiology CT Specialty Diagnoses / Procedures Referred By Contac t Referred To Contact CT IMAGING Diagnoses Splenomegaly, not elsewhere classified Procedures CT ABD/PEL W IVCON CT ABD & PELVIS W/CONTRAST Lucie Reynolds, CHON.ENVIRONMENTAL SCIENCE TECHNICIAN [address] [place] [address] Phone: tel: fax: [place] [phone] Referral ID Status Reason Start Date Expiration Date V isits Requested Visits Authorized [id number] Closed Auto-Generate d Referral 03/05/2024 04/04/2025 1 1 Reason Comments Radiology Review Reason Comments Internal Referrals/resources Care Teams (unrecognized sec tion and content) Neon Sign Mechanic Relationship Specialty Start Date End Date Marciano Weaver MD [address] [place] [address] PCP - General Family Practice 03/01/17 Mynor Mendoza MD Physician Cardiology 03/01/17 Daja Steward [address] [facility] [address] [place] [address] Physician Endocrinology 03/01/17 Roderick Brizuela [address] [facility] [place] [place] [address] Physician Pulmonary Disease 05/25/17 Neon Sign Mechanic Relationship Specialty Start Date End Date Marciano Weaver MD [address] [place], [place] [address] PCP - General Family Practice 03/01/17 Mynor Mendoza MD Physician Cardiology 03/01/17 Daja Steward [address] [place] [address] Physician Endocrinology 03/01/17 Roderick Brizuela [address] [place] [address] Physician Pulmonary Disease 05/25/17 Neon Sign Mechanic Relationship Specialty Start Date End Date Marciano Weaver MD [address] [facility] [place] [address] PCP - General Family Practice 03/01/17 Mynor Mendoza MD Physician Cardiology 03/01/17 Daja Steward [address] [facility] [address] [place] [address] Physician Endocrinology 03/01/17 Roderick Brizuela [address] [place] [address] Physician Pulmonary Disease 05/25/17 Neon Sign Mechanic Relationship Specialty Start Date End Date Marciano Weaver MD [address] [place] [address] PCP - General Family Practice 03/01/17 Mynor Mendoza MD Physician Cardiology 03/01/17 Daja Steward [address] [facility] [address] [place] [address] Physician Endocrinology 03/01/17 Roderick Brizuela [address] [place] [address] Physician Pulmonary Disease 05/25/17 Neon Sign Mechanic Relationship Specialty Start Date End Date Marciano Weaver MD [address] [place] [address] PCP - General Family Practice 03/01/17 Mynor Mendoza MD Physician Cardiology 03/01/17 Daja Steward [address] [facility] [address] [place] [address] Physician Endocrinology 03/01/17 Roderick Brizuela [address] [place] [address] Physician Pulmonary Disease 05/25/17 Neon Sign Mechanic Relationship Specialty Start Date End Date Marciano Weaver MD [address] [facility] [place] [address] PCP - General Family Medicine 03/01/17 Mynor Mendoza MD Physician Cardiology 03/01/17 Daja Steward [address] [facility] [address] [place] [address] Physician Endocrinology 03/01/17 Roderick Brizuela [address] [place] [address] Physician Pulmonary Disease 05/25/17 Neon Sign Mechanic Relationship Specialty Start Date End Date Marciano Weaver MD [address] [facility] [place] [address] PCP - General Family Medicine 03/01/17 Mynor Mendoza MD Physician Cardiology 03/01/17 Daja Steward [address] [facility] [address] [place] [address] Physician Endocrinology 03/01/17 Roderick Brizueal [address] [place] [address] Physician Pulmonary Disease 05/25/17 Neon Sign Mechanic Relationship Specialty Start Date End Date Marciano Weaver MD [address] [place] [address] PCP - General Family Medicine 03/01/17 Mynor Mendoza MD Physician Cardiology 03/01/17 Daja Steward [address] [place] [address] Physician Endocrinology 03/01/17 Roderick Brizuela [address] [place] [address] Physician Pulmonary Disease 05/25/17 Neon Sign Mechanic Relationship Specialty Start Date End Date Marciano Weaver MD [address] [place] [address] PCP - General Family Medicine 03/01/17 Mynor Mendoza MD [address] [place] [address] Physician Cardiology 03/01/17 Daja Steward [address] [facility] [address] [place] [address] Physician Endocrinology 03/01/17 Roderick Brizuela [address] [place] [address] Physician Pulmonary Disease 05/25/17 Neon Sign Mechanic Relationship Specialty Start Date End Date Marciano Weaver MD [address] [place] [address] PCP - General Family Medicine 03/01/17 Mynor Mendoza MD [address] [place] [address] Physician Cardiology 03/01/17 Daja Steward [address] [facility] [address] [place] [address] Physician Endocrinology 03/01/17 Roderick Brizuela [address] [facility] [place] [address] Physician Pulmonary Disease 05/25/17 Team Status: Active Member Role Status Dates Dr. Marciano Weaver MD Family Provider Active Dr. Marciano Weaver MD Primary Care Provider Active Team Status: Inactive Member Role Status Dates Dr. Marciano Weaver MD Primary Care Provider, Referring P rovider Active Amparo Addison COMBAT CONTROL, COMBAT CONTROL-C Active Kathrine Amos COMBAT CONTROL, COMBAT CONTROL-C Attending Provider Active Team Status: Inactive Member Role Status Dates Dr. Marciano Weaver MD Primary Care Provider, Referring P rovider Active Lula Shafer Attending Provider Active Team Status: Inactive Member Role Status Dates Dr. Marciano Weaver MD Primary Care Provider, Referring P rovider Active Dr. Mera Eddy DC Attending Provider Active Team Status: Active Member Role Status Dates Dr. Marciano Weaver MD Primary Care Provider Active Dr. Murphy Matson MD Attending Provider, Referring Provider Active Team Status: Inactive Member Role Status Dates Dr. Marciano Weaver MD Primary Care Provide r, Attending Provider, Referring Provider Active Neon Sign Mechanic Relationship Specialty Start Date End Date Marciano Weaver MD [address] [facility] [address] PCP - General Family Medicine 03/01/17 Mynor Mendoza MD [address] [place] [address] Physician Cardiology 03/01/17 Daja Steward [address] [facility] [address] [place] [address] Physician Endocrinology 03/01/17 Roderick Brizuela [address] [place] [address] Physician Pulmonary Disease 05/25/17 Neon Sign Mechanic Relationship Specialty Start Date End Date Marciano Weaver MD [address] [place] [address] PCP - General Family Medicine 03/01/17 Mynor Mendoza MD [address] [place] [address] Physician Cardiology 03/01/17 Daja Steward [address] [place] [address] Physician Endocrinology 03/01/17 Roderick Brizuela [address] [place] [address] Physician Pulmonary Disease 05/25/17 Team Status: Inactive Member Role Status Dates Dr. Marciano Weaver MD Primary Care Provider, Referring P rovider Active Dr. Roderick Brizuela MD Attending Provider Active Team Status: Inactive Member Role Status Dates Dr. Marciano Weaver MD Primary Care Provider, Referring P rovider Active Dr. Henry Mendoza DO Attending Provider Active Team Status: Inactive Member Role Status Dates Dr. Marciano Weaver MD Primary Care Provider Active Dr. Shyam Soni MD Attending Provider Active Team Status: Inactive Member Role Status Dates Dr. Marciano Weaver MD Primary Care Provider Active Dr. Muprhy Matson MD Attending Provider, Referring Provider Active Neon Sign Mechanic Relationship Specialty Start Date End Date Marciano Weaver MD [address] [place] [address] PCP - General Family Medicine 03/01/17 Mynor Mendoza MD [address] [place] [address] Physician Cardiology 03/01/17 Daja Steward [address] [place] [address] Physician Endocrinology 03/01/17 Roderick Brizuela [address] [place] [address] Physician Pulmonary Disease 05/25/17 Team Status: Inactive Member Role Status Dates Dr. Marciano Weaver MD Primary Care Provider Active Isidra Henriquez , COMBAT CONTROL-C Attending Provider, Referring Pro vider Active Neon Sign Mechanic Relationship Specialty Start Date End Date Marciano Weaver MD [address] [place] [address] PCP - General Family Medicine 03/01/17 Mynor Mendoza MD [address] [place] [address] Physician Cardiology 03/01/17 Daaj Steward [address] [place] [phone] Physician Endocrinology 03/01/17 Roderick Brizuela MD [address] [place], [place] [address] Physician Pulmonary Disease 05/25/17 Neon Sign Mechanic Relationship Specialty Start Date End Date Marciano Weaver MD [address] [place] [address] PCP - General Family Medicine 03/01/17 Mynor Mendoza MD [address] [place] [address] Physician Cardiology 03/01/17 Daja Steward [address] [place] [address] Physician Endocrinology 03/01/17 Roderick Brizuela MD [address] [place] [address] Physician Pulmonary Disease 05/25/17 Team Status: Inactive Member Role Status Dates Dr. Marciano Weaver MD Primary Care Provider, Referring P rovider Active Eri Corral NP, COMBAT CONTROL-C Attending Provider Active Team Status: Inactive Member Role Status Dates Dr. Marciano Weaver MD Primary Care Provider, Referring P rovider Active Lula Shafer Active Dr. Shyam Soni MD Attending Provider Active Team Status: Active Member Role Status Dates Dr. Marciano Weaver MD Primary Care Provider Active CONTRERAS VillagranC Attending Provider, Referring Pro vider Active Team Status: Inactive Member Role Status Dates Dr. Marciano Weaver MD Primary Care Provider Active Dr. Kyaw Boogie DO Attending Provider, Emergency P rovider Active Neon Sign Mechanic Relationship Specialty Start Date End Date Marciano Wevaer MD [address] [place] [address] PCP - General Family Medicine 03/01/17 Mynor Mendoza MD [address] [place] [address] Physician Cardiology 03/01/17 Daja Steward [address] [facility] [address] [place] [address] Physician Endocrinology 03/01/17 Roderick Brizuela MD [address] [place] [address] Physician Pulmonary Disease 05/25/17 Neon Sign Mechanic Relationship Specialty Start Date End Date Marciano Weaver MD [address] [place] [address] PCP - General Family Medicine 03/01/17 Mynor Mendoza MD [address] [place] [address] Physician Cardiology 03/01/17 Daja Steward [address] [place] [facility] [address] [place] [phone] Physician Endocrinology 03/01/17 Roderick Brizuela MD [address] [place] [address] Physician Pulmonary Disease 05/25/17 Neon Sign Mechanic Relationship Specialty Start Date End Date Marciano Weaver MD [address] [place] [address] PCP - General Family Medicine 03/01/17 Mynor Mendoza MD [address] [place] [address] Physician Cardiology 03/01/17 Daja Steward [address] [place] [facility] [address] [place] [phone] Physician Endocrinology 03/01/17 Roderick Brizuela MD [address] [place], [place] [address] Physician Pulmonary Disease 05/25/17 Wali Bravo MD [address] [place] [address] Primary Staff Physician Cardiology 10/02/23 Neon Sign Mechanic Relationship Specialty Start Date End Date Marciano Weaver MD [address] [place], [place] [address] PCP - General Family Medicine 03/01/17 Mynor Mendoza MD [address] [place] [address] Physician Cardiology 03/01/17 Daja Steward [address] [place] [address] Physician Endocrinology 03/01/17 Roderick Brizuela MD [address] [place] [address] Physician Pulmonary Disease 05/25/17 Wali Bravo MD [address] [place] [address] Primary Staff Physician Cardiology 10/02/23 Neon Sign Mechanic Relationship Specialty Start Date End Date Marciano Weaver MD [address] [place] [address] PCP - General Family Medicine 03/01/17 Mynor Mendoza MD [address] [place] [address] Physician Cardiology 03/01/17 Daja Steward [address] [place] [address] Physician Endocrinology 03/01/17 Roderick Brizuela MD [address] [place] [address] Physician Pulmonary Disease 05/25/17 Wali Bravo MD [address] [place] [address] Primary Staff Physician Cardiology 10/02/23 Neon Sign Mechanic Relationship Specialty Start Date End Date Marciano Weaver MD [address] [place] [address] PCP - General Family Medicine 03/01/17 Mynor Mendoza MD [address] [place] [address] Physician Cardiology 03/01/17 Daja Steward [address] [place] [address] Physician Endocrinology 03/01/17 Roderick Brizuela MD [address] [place], [place] [address] Physician Pulmonary Disease 05/25/17 Wali Bravo MD [address] [place] [address] Primary Staff Physician Cardiology 10/02/23 Neon Sign Mechanic Relationship Specialty Start Date End Date Marciano Weaver MD [address] [place], [place] [address] PCP - General Family Medicine 03/01/17 Mynor Mendoza MD [address] [place] [address] Physician Cardiology 03/01/17 Daja Steward [address] [facility] [address] [place] [address] Physician Endocrinology 03/01/17 Roderick Brizuela MD [address] [place] [address] Physician Pulmonary Disease 05/25/17 Wali Bravo MD [address] [place], [place] [address] Primary Staff Physician Cardiology 10/02/23 Neon Sign Mechanic Relationship Specialty Start Date End Date Marciano Weaver MD [address] [place] [address] PCP - General Family Medicine 03/01/17 Mynor Mendoza MD [address] [address] Physician Cardiology 03/01/17 Daja Steward [address] [facility] [address] [place] [address] Physician Endocrinology 03/01/17 Roderick Brizuela MD [address] [place] [address] Physician Pulmonary Disease 05/25/17 Wali Bravo MD [address] [place], [place] [id number] Primary Staff Physician Cardiology 10/02/23 Neon Sign Mechanic Relationship Specialty Start Date End Date Marciano Weaver MD [address] [place] [address] PCP - General Family Medicine 03/01/17 Mynor Mendoza MD [address] [place], [place] [address] Physician Cardiology 03/01/17 Daja Steward [address] [place] [phone] Physician Endocrinology 03/01/17 Roderick Brizuela MD [address] [place] [address] Physician Pulmonary Disease 05/25/17 Wali Bravo MD [address] [place], [place] [id number] Primary Staff Physician Cardiology 10/02/23 Neon Sign Mechanic Relationship Specialty Start Date End Date Marciano Weaver MD [address] [place] [address] PCP - General Family Medicine 03/01/17 Mynor Mendoza MD [address] [place] [address] Physician Cardiology 03/01/17 Daja Steward [address] [place] [address] Physician Endocrinology 03/01/17 Roderick Brizuela MD [address] [place] [address] Physician Pulmonary Disease 05/25/17 Wali Bravo MD [address] [place] [address] Primary Staff Physician Cardiology 10/02/23 Neon Sign Mechanic Relationship Specialty Start Date End Date Marciano Weaver MD [address] [place] [address] PCP - General Family Medicine 03/01/17 Mynor Mendoza MD [address] [place] [address] Physician Cardiology 03/01/17 Daja Steward [address] [facility] [address] [place] [phone] Physician Endocrinology 03/01/17 Roderick Brizuela MD [address] [facility] [place] [address] Physician Pulmonary Disease 05/25/17 Wali Bravo MD [address] [place] [address] Primary Staff Physician Cardiology 10/02/23 Neon Sign Mechanic Relationship Specialty Start Date End Date Marciano Weaver MD [address] [place] [address] PCP - General Family Medicine 03/01/17 Mynor Mendoza MD [address] [place], [place] [address] Physician Cardiology 03/01/17 Daja Steward [address] [place] [phone] Physician Endocrinology 03/01/17 Roderick Brizuela MD [address] [place] [address] Physician Pulmonary Disease 05/25/17 Wali Bravo MD [address] [place], [place] [id number] Primary Staff Physician Cardiology 10/02/23 Neon Sign Mechanic Relationship Specialty Start Date End Date Marciano Weaver MD [address] [place], [place] [address] PCP - General Family Medicine 03/01/17 Mynor Mendoza MD [address] [place] [address] Physician Cardiology 03/01/17 Daja Steward [address] [place] [phone] Physician Endocrinology 03/01/17 Roderick Brizuela MD [address] [place] [address] Physician Pulmonary Disease 05/25/17 Wali Bravo MD [address] [place], [place] [id number] Primary Staff Physician Cardiology 10/02/23 Neon Sign Mechanic Relationship Specialty Start Date End Date Marciano Weaver MD [address] [place], [place] [address] PCP - General Family Medicine 03/01/17 Mynor Mendoza MD [address] [place] [address] Physician Cardiology 03/01/17 Daja Steward [address] [place] [address] Physician Endocrinology 03/01/17 Roderick Brizuela MD [address] [place] [address] Physician Pulmonary Disease 05/25/17 Wali Bravo MD [address] [place] [address] Primary Staff Physician Cardiology 10/02/23 Team Status: Inactive Member Role Status Dates Dr. Marciano Weaver MD Primary Care Provider Active Start: July 10, 2024 End: July 10, 2024 Dr. Marciano Weaver MD Attending Provider Active St art: July 10, 2024 End: July 10, 2024 Dr. Marciano Weaver MD Referring Provider Active St art: July 10, 2024 End: July 10, 2024 Neon Sign Mechanic Relationship Specialty Start Date End Date Marciano Weaver MD [address] [place] [address] PCP - General Family Medicine 03/01/17 Mynor Mendoza MD [address] [place] [address] Physician Cardiology 03/01/17 Daja Steward [address] [place] [address] Physician Endocrinology 03/01/17 Roderick Brizuela MD [address] [place] [address] Physician Pulmonary Disease 05/25/17 Wali Bravo MD [address] [place], [place] [id number] Primary Staff Physician Cardiology 10/02/23 Neon Sign Mechanic Relationship Specialty Start Date End Date Marciano Weaver MD [address] [place] [address] PCP - General Family Medicine 03/01/17 Mynor Mendoza MD [address] [place] [address] Physician Cardiology 03/01/17 Daja Steward [address] [facility] [address] [place] [phone] Physician Endocrinology 03/01/17 Roderick Brizuela MD [address] [place], [place] [id number] Physician Pulmonary Disease 05/25/17 Wali Bravo MD [address] [place], [place] [id number] Primary Staff Physician Cardiology 10/02/23 Team Status: Active Member Role/Relationship Status Dates Dr. Marciano Weaver MD Family Provider Active Dr. Marciano Weaver MD Primary Care Provider Active Team Status: Inactive Member Role/Relationship Status Dates Dr. Marciano Weaver MD Primary Care Provider Active Start: July 10, 2024 End: July 10, 2024 Dr. Marciano Weaver MD Attending Provider Active St art: July 10, 2024 End: July 10, 2024 Dr. Marciano Weaver MD Referring Provider Active St art: July 10, 2024 End: July 10, 2024 Team Status: Inactive Member Role/Relationship Status Dates Dr. Marciano Weaver MD Primary Care Provider Active Start: August 14, 2024 End: August 14, 2024 Dr. Marciano Weaver MD Referring Provider Active St art: August 14, 2024 End: August 14, 2024 Dr. Mera Eddy DC Attending Provider Active S tart: August 14, 2024 End: August 14, 2024 Neon Sign Mechanic Relationship Specialty Start Date End Date Marciano Weaver MD [address] [place], [place] [address] PCP - General Family Medicine 03/01/17 Mynor Mendoza MD [address] [place], [place] [address] Physician Cardiology 03/01/17 Daja Steward [address] [facility] [address] [place] [phone] Physician Endocrinology 03/01/17 Roderick Brizuela MD [address] [facility], [place] [address] Physician Pulmonary Disease 05/25/17 Wali Bravo MD [address] [place] [address] Primary Staff Physician Cardiology 10/02/23 Neon Sign Mechanic Relationship Specialty Start Date End Date Marciano Weaver MD [address] [place], [place] [id number] PCP - General Family Medicine 03/01/17 Mynor Mendoza MD [address] [place], [place] [id number] Physician Cardiology 03/01/17 Daja Steward [address] [place] [address] Physician Endocrinology 03/01/17 Roderick Brizuela MD [address] [place] [address] Physician Pulmonary Disease 05/25/17 Wali Bravo MD [address] [place] [address] Primary Staff Physician Cardiology 10/02/23 Team Status: Active Member Role/Relationship Status Dates Dr. Marciano Weaver MD Primary Care Provider Active Team Status: Inactive Member Role/Relationship Status Dates Dr. Marciano Weaver MD Primary Care Provider Active Start: August 16, 2024 End: August 16, 2024 Dr. Al Espinoza MD Attending Provider Active Start: August 16, 2024 End: August 16, 2024 Dr. Al Espinoza MD Referring Provider Active Start: August 16, 2024 End: August 16, 2024 Team Status: Active Member Role/Relationship Status Dates Dr. Marciano Weaver MD Primary Care Provider Active Start: August 22, 2024 Dr. Al Espinoza MD Attending Provider Active Start: August 22, 2024 Dr. Al Espinoza MD Referring Provider Active Start: August 22, 2024 FOR RECORDS PERTAINING TO PATIENTS WHO ARE OR HAVE BEEN ENROLLED IN A CHEMICAL DEPENDENCY/SUBSTANCEABUSE PROGRAM, SOME INFORMATION MAY BE OMITTED. This clinical summary was aggregated from multiple sources. Caution should be exercised in using it in the provision of clinical care. This summary normalizes information from multiple sources, and as a consequence, information in this document may materially change the coding, format and clinical context of patient data. In addition, data may be omitted in some cases. CLINICAL DECISIONS SHOULD BE BASED ON THE PRIMARY CLINICAL RECORDS. [facility] [facility]. provides no warranty or guarantee of the accuracy or completeness of information in this document.
== END | disposition home or self-care (01) ==
LOC: OPBD 15:39
PROVIDERS: PCP Family Medicine; Referring Provider Family Medicine; Visit Provider Family Medicine
DX: M81.0 Age-related osteoporosis without current pathological fracture (principal); R07.81 Pleurodynia
CPT/HCPCS: 77080

== ENCOUNTER 2024-11-28 17:30 | Outpatient (RCR) | payer SELFPAY | END 2024-12-06 23:59 | LOC: NS 17:30 | PROVIDERS: PCP Family Medicine | DX: Z71.3 Dietary counseling and surveillance (principal) ==

== ENCOUNTER 2024-12-05 11:52 | Outpatient (RCR) | payer SELFPAY | END 2024-12-06 23:59 | LOC: NS 11:52 | PROVIDERS: PCP Family Medicine | DX: Z71.3 Dietary counseling and surveillance (principal) ==

== ENCOUNTER → 2024-12-10 | Outpatient (CLI) | payer MEDICAID, MEDICARE, SELFPAY ==
[2024-12-10 15:11] LABS: Hematocrit 42.7 % (40-54); Hemoglobin 13.9 g/dL (13.0-16.5); Immature Granulocytes Count 0.030 X10^3/uL (0.0-0.0); Mean Corp Hgb Conc 32.6 g/dL (32-36); Mean Corpuscular Volume 84.7 fL (80-94); Mean Platelet Vol. 10.9 fl (6.2-12.0); NRBC Flagged by Analyzer 0 % (0-5); Platelet Count 125 K/mm3 (150-450); RBC Distribution Width CV 15.7 % (11.6-14.6); RBC Distribution Width SD 47.3 fl (35.1-43.9); Red Blood Count 5.04 M/mm3 (4.6-6.2); White Blood Count 6.1 K/mm3 (4.4-11.0)
[2024-12-10 15:34] LABS: AST(SGOT) 17 U/L (<=37); Alanine Aminotransfer ALT/SGPT 11 U/L (<=46); Albumin, Serum 3.9 g/dL (3.4-4.8); Alkaline Phosphatase 56 U/L (40-129); Anion Gap 10 (5-15); BUN 18 mg/dL (4-19); BUN/Creat Ratio 14.6 RATIO (10-20); Calcium,Total 9.2 mg/dL (7.6-11.0); Carbon Dioxide 24.2 mmol/L (21.0-32.0); Chloride 106 mmol/L (98-108); Globulin 2.7 g/dL (2.2-4.2); Glucose 139 mg/dL (70-99); Potassium 4.1 mmol/L (3.3-5.1)
== END | disposition home or self-care (01) ==
LOC: MFPLAB 12:27
PROVIDERS: PCP Family Medicine; Visit Provider Family Medicine
DX: E11.49 Type 2 diabetes mellitus with other diabetic neurological complication (principal)
CPT/HCPCS: 36415; 80053; 83036; 84443; 85025